=== PATIENT | female | born 1985 | race Caucasian/White ===

== ENCOUNTER 2024-04-22 18:10 | Emergency (ER) | payer OTHER, SELFPAY ==
--- NOTE | ~2024-04-22 | CT_ITS ---
EXAMINATION: CT abdomen pelvis w con DATE: 04/22/2024 20:56 INDICATION: Abdominal pain. TECHNIQUE: Computed tomography (CT) of the abdomen and pelvis was performed with 100 mL Omnipaque 350 intravenous contrast. Automated exposure control and iterative reconstruction technique were employe d. The dose-length product was 810.90 mGy-cm. COMPARISON: CT abdomen and pelvis 07/28/2018 FINDINGS: The visualized portions of the lung bases demonstrate mild atelectasis. No pleural effusion . The heart size is normal. No pericardial effusion. The liver and spleen are normal. The gallbladder is distended. The pancreas, adrenal glands, and kidneys are normal. Stool distends the rectum. There is liquid stool in the more proximal colon with distention of the ascending, transverse, and proxima l descending colon. The appendix is normal. There are no pathologically enlarged lymph nodes. There i s mild thoracic and lumbar spondylosis. IMPRESSION: 1. Distended colon, consistent with adynamic ileus. 2. Gallbladder distention, which may be secondary to fasting. Reviewed, dictated and finalized at location [facility]. [facility]
[2024-04-22 18:12] VITALS: BP 146/85; PULSE 95; RESP 16; TEMP 36.7; O2SAT 98
[2024-04-22 18:59] LABS: Basophils Absolute Auto 0.1 K/mm3 (0.0-0.1); Basophils Percent Auto 1.1 % (0.2-1.2); Eosinophils Absolute Auto 0.1 K/mm3 (0-0.3); Eosinophils Percent Auto 0.7 % (0-4.4); Hematocrit 36.1 % (37.0-47.0); Hemoglobin 11.2 g/dL (12.0-15.0); Immature Granulocyte Absolute 0.03 K/mm3 (0.00-0.031); Immature Granulocyte Percent A 0.4 % (0-0.5); Lymphocytes Absolute Auto 2.32 K/mm3 (0.9-3.2); Lymphocytes Percent Auto 27.5 % (18.3-44.2); Mean Corpuscular Hemoglobin 23.2 pg (26-34); Mean Corpuscular Volume 74.9 fl (80-100); Monocytes Absolute Auto 0.7 K/mm3 (0.1-0.6); Monocytes Percent Auto 8.4 % (2.6-8.5); Neutrophils Absolute Auto 5.2 K/mm3 (1.3-6.7); Neutrophils Percent Auto 61.9 % (45.5-73.1); Platelet Count Result 328 k/mm3 (150-375); Red Blood Count 4.82 M/mm3 (4.2-5.4); Red Cell Distribution Width 15.7 % (11.5-14.5); White Blood Count 8.5 K/mm3 (4.5-10.0)
[2024-04-22 19:09] LABS: Alanine Aminotransferase 10 U/L (6-35); Albumin Level 4.5 g/dL (3.5-5.1); Alkaline Phosphatase 70 U/L (38-126); Anion Gap 3 mmol/L (4-12); Aspartate Amino Transferase 20 U/L (14-36); Bilirubin,Total 0.4 mg/dL (0.2-1.3); Blood Urea Nitrogen 6 mg/dL (7-17); Calcium 9.2 mg/dL (8.4-10.2); Carbon Dioxide 28 mmol/L (22-30); Chloride 107 mmol/L (98-107); Estimated CRCL calculation 91 ml/min; Estimated Glomerular Filt Rate > 60; Glucose 95 mg/dL (65-110); Lipase 92 U/L (23-300); Potassium 4.1 mmol/L (3.4-5.0); Sodium 138 mmol/L (137-145)
[2024-04-22 19:27] LABS: Platelet Estimate Adequate (Adequate)
[2024-04-22 19:28] LABS: Anisocytosis 2+; Microcytosis 1+ (NORMAL); Schistocytes None Seen
[2024-04-22] MEDS: MORPHINE SULFATE (*CRX) 4 MG/ML INJ IV PUSH ×2 (19:53→22:29)
--- NOTE | 2024-04-22 19:53 | ED_ITS ---
HPI - General Adult General Chief complaint: Abdominal Pain Stated complaint: abd pain, rectal pain constipation Time Seen by Provider: 04/22/24 19:04 History of Present Illness HPI narrative: Patient 39-year-old female who presents emergency department with chief complaint of abdominal pain. Patient reports that the last several days she has not been able have a bowel movement reports he took some MiraLax without success reports that she continues to have discomfort patient reports no vomiting the patient reports no prior surgical history on her abdomen. Related Data Allergies Allergy/AdvReac Type Severity Reaction Status Date / Time Cat Dander Allergy Mild Anaphylaxis Uncoded 04/22/24 18:46 Review of Systems 2 Review of Systems: A 10 system review of systems was completed on the patient and is negative except for what is stated in the HPI. Nursing and ancillary documentation was reviewed. [facility] Family History Family History Father Hypertension Family history of diabetes mellitus in first degree relative Social History Social History Smoking status: Former smoker Smoking end date: 04/29/07 Alcohol intake: current Exam 2 Narrative: GENERAL: Well-appearing, well-nourished, and in no acute distress. HEAD: Normocephalic, atraumatic. EYES: PERRLA and EOMI. ENT: Nares clear, no rhinorrhea or epistaxis. Mucous membranes moist. NECK: Supple. CHEST: Clear to auscultation. No respiratory distress. HEART: Regular rate and rhythm. No murmur heard. Normal peripheral pulses. ABDOMEN: Soft, diffuse mild tenderness, nondistended, normal active bowel sounds. : Rectal exam was guaiac negative and there was a large amount of soft stool in the rectal vault EXTREMITIES: Normal range of motion. No edema. SKIN: Warm, dry, no rash. NEURO: No focal deficits. Alert and oriented x3. PSYCH: Normal mood and affect. Course Vital Signs Vital signs: Vital Signs Temperature 36.7 C 04/22/24 18:12 Pulse Rate 95 04/22/24 18:12 Respiratory Rate 16 04/22/24 18:12 Blood Pressure 146/85 H 04/22/24 18:12 Pulse Oximetry 98 04/22/24 18:12 Oxygen Delivery Room Air 04/22/24 18:12 Temperature 36.7 C 04/22/24 18:12 Pulse Rate 78 04/22/24 22:31 Respiratory Rate 19 04/22/24 22:31 Blood Pressure 132/102 H 04/22/24 22:31 Pulse Oximetry 100 04/22/24 22:31 Oxygen Delivery Room Air 04/22/24 18:12 Medical Decision Making MDM Narrative Medical decision making narrative: Differential diagnosis includes intra-abdominal infection, gastroenteritis, constipation, fecal impaction Laboratory studies were obtained on the patient which were within normal limits CT scan of the abdomen pelvis showed 1. Distended colon, consistent with adynamic ileus. 2. Gallbladder distention, which may be secondary to fasting Patient received IV fluids and received antiemetics Vital Signs Vital Signs: Vital Signs Temperature 36.7 C 04/22/24 18:12 Pulse Rate 95 04/22/24 18:12 Respiratory Rate 16 04/22/24 18:12 Blood Pressure 146/85 H 04/22/24 18:12 Pulse Oximetry 98 04/22/24 18:12 Oxygen Delivery Room Air 04/22/24 18:12 Temperature 36.7 C 04/22/24 18:12 Pulse Rate 78 04/22/24 22:31 Respiratory Rate 19 04/22/24 22:31 Blood Pressure 132/102 H 04/22/24 22:31 Pulse Oximetry 100 04/22/24 22:31 Oxygen Delivery Room Air 04/22/24 18:12 Lab Data 04/22/24 18:52 04/22/24 18:52 Labs: Lab Results 04/22/24 04/22/24 04/22/24 Range/Units 18:52 19:55 20:07 WBC 8.5 (4.5-10.0) K/mm3 RBC 4.82 (4.2-5.4) M/mm3 Hgb 11.2 L (12.0-15.0) g/dL Hct 36.1 L (37.0-47.0) % MCV 74.9 L (80-100) fl MCH 23.2 L (26-34) pg MCHC 31.0 L (32-36) g/dl RDW 15.7 H (11.5-14.5) % Plt Count 328 (150-375) k/mm3 MPV 11.0 H (7.4-10.4) fl Immature Gran % (Auto) 0.4 (0-0.5) % Neut % (Auto) 61.9 (45.5-73.1) % Lymph % (Auto) 27.5 (18.3-44.2) % Geary % (Auto) 8.4 (2.6-8.5) % Eos % (Auto) 0.7 (0-4.4) % Baso % (Auto) 1.1 (0.2-1.2) % Lymph # (Auto) 2.32 (0.9-3.2) K/mm3 Geary # (Auto) 0.7 H (0.1-0.6) K/mm3 Eos # (Auto) 0.1 (0-0.3) K/mm3 Baso # (Auto) 0.1 (0.0-0.1) K/mm3 Abs Immat Gran (auto) 0.03 (0.00-0.031) K/mm3 Absolute Neuts (auto) 5.2 (1.3-6.7) K/mm3 Absolute Nucleated RBC 0.000 (0.0-0.012) K/mm3 Nucleated RBC % 0.0 (0.0-0.2) % Platelet Estimate Adequate (Adequate) Anisocytosis 2+ Microcytosis 1+ (NORMAL) Schistocytes None seen Sodium 138 (137-145) mmol/L Potassium 4.1 (3.4-5.0) mmol/L Chloride 107 (98-107) mmol/L Carbon Dioxide 28 (22-30) mmol/L Anion Gap 3 L (4-12) mmol/L BUN 6 L (7-17) mg/dL Creatinine 0.80 (0.7-1.0) mg/dL Estim Creat Clear Calc 91 ml/min Estimated GFR > 60 (59 - ) Glucose 95 (65-110) mg/dL Calcium 9.2 (8.4-10.2) mg/dL Total Bilirubin 0.4 (0.2-1.3) mg/dL AST 20 (14-36) U/L ALT 10 (6-35) U/L Alkaline Phosphatase 70 (38-126) U/L Total Protein 8.0 (6.3-8.2) g/dL Albumin 4.5 (3.5-5.1) g/dL Lipase 92 (23-300) U/L Urine Color Yellow (Yellow) Urine Appearance Clear (Clear) Urine pH 5.5 (5.0-9.0) Ur Specific Mobile 1.005 (1.001-1.035) Urine Protein Negative (Negative) mg/dL Urine Glucose (UA) Negative (Negative) mg/dL Urine Ketones Negative (Negative) mg/dL Ur Blood (Man) Negative (Negative) Urine Nitrate Negative (Negative) Urine Bilirubin Negative (Negative) Urine Urobilinogen 0.2 (<2.0) mg/dL Leukocyte Esterase Rfl Negative (Negative) RUDOLPH/UL POC Urine HCG, Qual Negative (Negative) Discharge Plan Discharge Clinical Impression: Abdominal pain, Adynamic ileus Patient Disposition: Home, Self-Care Condition: Stable Instructions: Antibiotic Form, Abdominal Pain (ED), Ileus (ED) Patient Language: Lao Prescriptions: New dicyclomine 20 mg tablet 20 mg PO QID PRN (Reason: abdominal discomfort) Qty: 20 0RF ondansetron 4 mg tablet,disintegrating 4 mg PO Q8H PRN (Reason: nausea and vomiting) Qty: 10 0RF Follow-up/Referrals: Steve Davis MD [Primary Care Provider] - Time of Disposition: 00:43
[2024-04-22 20:09] LABS: BEDSIDEPREGUCG Negative (Negative)
[2024-04-22 20:20] LABS: Add Urine Microscopic? NO; Appearance Urine Clear (Clear); Bilirubin Urine Negative (Negative); Blood Urine Negative (Negative); Color Urine Yellow (Yellow); Glucose Urine UA Negative (Negative); Ketones Urine Negative (Negative); Leukocyte Esterase Ur Negative LEU/UL (Negative); Nitrate Urine Negative (Negative); Protein Urine Negative (Negative); Specific Grav Ur 1.005 (1.001-1.035); Urobilinogen Urine 0.2 mg/dL (<2.0); pH Urine 5.5 (5.0-9.0)
[2024-04-22 22:31] VITALS: BP 132/102; PULSE 78; RESP 19; O2SAT 100
[2024-04-22] MEDS: PROCHLORPERAZINE EDISYLATE 10 MG/2 ML VIAL IV PUSH (22:37)
[2024-04-23 00:30] VITALS: BP 136/89; PULSE 62; RESP 15; O2SAT 97
--- OUTSIDE RECORDS SUMMARY | 2024-04-29 22:42 | XMS_ITS | Encounter Summary ---
Author Organization [facility] Address [address] [place] [address] [place] [address] Care Team Providers Care Administrative Support Technician Name Role Phone Steve Davis MD Primary Care Provider Encounter Details Date Type Department Care Team (Latest Contact Info) Description 04/08/2015 Encounter Social History Tobacco Use Types Packs/Day Years Used Date Smoking Tobacco: Former Cigarettes Q uit: 04/29/2010 Smokeless Tobacco: Never Alcohol Use Standard Drinks/Week Comments No 0 (1 standard drink = 0.6 oz pur e alcohol) Sex and Gender Information Value Date Recorded Sex Assigned at Not on file Gender Identity Not on file Sexual Orientation Not on file documented as of this encounter Functional Status Functional Status Response Date of Assess ment Is person deaf or have serious hearing difficult y? No 03/30/2015 Is person blind or have serious difficulty seein g? No 03/30/2015 Does person have serious dif ficulty walking/climbing stairs? No 03/30/2015 Does person have difficulty dressing/bathing? No 03/30/2015 Does person have difficulty doing errands alone? No 03/30/2015 Cognitive Status Response Date of Assessm ent Does person have difficulty concentrating/remembering/making decisions? No 03/30/2015 documented as of this encounter Nursing Notes * Lorena Torres RN - 04/07/2015 12:14 PM CST This note was copied from the chart of Baby Girl 2 Oanh Ortiz. consult: Oanh has independently latched her on with a shield, and infant eagerly sucked, and maintained latch, pointed out swallows to mom. Instructed her to offer both breasts at each feeding and nursed for about 15 minutes. Instructed to call for assistance when here and she verbalized understanding. Lorena Torres RN, IBCLC [employer] documented in this encounter Plan of Treatment Not on file documented as of this encounter Visit Diagnoses Not on filedocumented in this encounter Care Teams Administrative Support Technician Relationship Specialty Start Date End Date Steve Davis MD [address] [employer] [employer] [address] [place] [address] PCP - General Family Medicine 03/30/15 documented as of this encounter
--- OUTSIDE RECORDS SUMMARY | 2024-04-29 22:42 | XMS_ITS | Patient Health Summary ---
Author Organization [facility] Address [facility] [place] [address] Care Team Providers Care Sql Report Writer Name Role Phone Steve aDvis MD Primary Care Provider [phone] [facility],non-owned Affiliates and Associated Physician Practices is amultiple site organization consisting of ambulatory clinics and hospital sitesin [place], [place], [place] and [place]. This disclosure is being madepursuant to the Care Everywhere program and may not contain all information available regarding this patient. Last updated 18.[facility] Allergies No known active allergies Medications * Be aware that medications may not be up to date on this document. Alwaysverify current medications with the patient. * Vit-Fe Fumarate-FA ( VITAMIN) 28-0.8 MG tablet Take 1 Tab by mouth once daily * acetaminophen (TYLENOL) 500 MG tablet Take 500 mg by mouth every 4 hours as needed for Fever or Pain Maximum allowable Acetaminophen amount = 4 Grams (4000 mg) / 24 hours. * ferrous sulfate 325 (65 FE) MG tablet(Started 03/09/2015) Take 1 Tab by mouth 2 times daily with morning and evening meal 2 refills left * bmihjzwxoo-wigmufwoxxqpc-akcmntum (FIORICET) 50-325-40 MG tablet(Started 03/29/2015) Take 1 Tab by mouth every 4 hours as needed for Headache or Migraine * oxyCODONE-acetaminophen (PERCOCET) 5-325 MG tablet(Started 04/03/2015) Take 1 Tab by mouth every 4 hours as needed * ibuprofen (MOTRIN) 600 MG tablet(Started 04/03/2015) Take 1 Tab by mouth every 6 hours as needed for Pain * docusate sodium (COLACE) 100 MG capsule(Started 04/03/2015) Take 1 Cap by mouth 2 times daily * lanolin (LANOLIN) ointment(Started 04/03/2015) Apply to affected area as needed (Sore or cracked nipples.) * ferrous sulfate 325 (65 FE) MG tablet(Started 04/03/2015) Take 1 Tab by mouth 2 times daily with morning and evening meal Active Problems Problem Noted Date Diagnosed Date Threatened labor 03/30/2015 Encounter for suspected PROM , with rupture of membranes not found 11/15/2014 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 History of LEEP (loop electr osurgical excision procedure) of cervix complicating 11/14/2014 Depression 11/14/2014 Obesity 11/14/2014 Supervision of high risk in [facility] 11/14/2014 History of ectopic 11/14/2014 Hyperemesis gravidarum with electrolyte imbalanc e Hypokalemia Maternal iron deficiency ane ryan affecting , antepartum Hypertension Status post section Immunizations * INFLUENZA(Given 12/28/2014) * TDAP (7yrs+)(Given 12/28/2014) Social History Tobacco Use Types Packs/Day Years Used Date Smoking Tobacco: Former Cigarettes Q uit: 04/29/2010 Smokeless Tobacco: Never Tobacco Cessation:Counseling Given: Yes Alcohol Use Standard Drinks/Week Comments No 0 (1 standard drink = 0.6 oz pur e alcohol) Sex and Gender Information Value Date Recorded Sex Assigned at Not on file Gender Identity Not on file Sexual Orientation Not on file Last Filed Vital Signs Vital Sign Reading Time Taken Comments Blood Pressure 112/70 05/05/2015 1:44 PM BALLROOM DANCE INSTRUCTOR Pulse 76 05/05/2015 1:44 PM BALLROOM DANCE INSTRUCTOR Temperature 36.7 ??C (98.1 ??F) 04/03/2015 8:00 AM CS T Respiratory Rate 16 05/05/2015 1:44 PM BALLROOM DANCE INSTRUCTOR Oxygen Saturation 96% 03/31/2015 3:07 AM BALLROOM DANCE INSTRUCTOR Inhaled Oxygen Concentration - - Weight 91.6 kg (202 lb) 05/05/2015 1:44 PM BALLROOM DANCE INSTRUCTOR Height 167.6 cm (5' 6 ) 05/05/2015 1:44 PM BALLROOM DANCE INSTRUCTOR Body Mass Index 32.6 05/05/2015 1:44 PM BALLROOM DANCE INSTRUCTOR Procedures * IMAGING/RADIOLOGY/XRAY RESULTS ORDER(Performed 04/12/2015) * LAB RESULTS ORDER(Performed 04/04/2015) * HGB HCT PANEL(Performed 03/31/2015) * PATHOLOGY TISSUE EXAM (STL)(Performed 03/30/2015) Performed for Diagnosis unknown * BLOOD GASES CORD KASEY (ISTAT)(Performed 03/30/2015) * BLOOD GASES CORD ART (ISTAT)(Performed 03/30/2015) * BLOOD GASES CORD KASEY (ISTAT)(Performed 03/30/2015) * BLOOD GASES CORD ART (ISTAT)(Performed 03/30/2015) * NEURAXIAL BLOCK(Performed 03/30/2015) * CBC W AUTO DIFFERENTIAL(Performed 03/30/2015) * NEURAXIAL BLOCK(Performed 03/30/2015) * TYPE + SCREEN PANEL(Performed 03/30/2015) Performed for Dichorionic diamniotic twin (HCC) * CBC W AUTO DIFFERENTIAL(Performed 03/30/2015) Performed for Dichorionic diamniotic twin (HCC) * URINALYSIS REFLEX MICROSCOPIC REFLEX CULTURE(Performed 03/30/2015) Performed for Threatened labor, third trimester (HCC) * PROTEIN CREATININE RATIO URINE RANDOM PNL(Performed 03/29/2015) Performed for Secondary hypertension, unspecified * LDH BLOOD(Performed 03/29/2015) Performed for Secondary hypertension, unspecified * URIC ACID BLOOD(Performed 03/29/2015) Performed for Secondary hypertension, unspecified * COMPREHENSIVE METABOLIC PANEL(Performed 03/29/2015) Performed for Secondary hypertension, unspecified * CBC W AUTO DIFFERENTIAL(Performed 03/29/2015) Performed for Secondary hypertension, unspecified * URINALYSIS REFLEX MICROSCOPIC REFLEX CULTURE(Performed 03/29/2015) Performed for Secondary hypertension, unspecified * CULTURE URINE(Performed 03/29/2015) Performed for Secondary hypertension, unspecified * URIC ACID BLOOD(Performed 03/22/2015) * COMPREHENSIVE METABOLIC PANEL(Performed 03/22/2015) * CBC W AUTO DIFFERENTIAL(Performed 03/22/2015) * CULTURE STREP B(Performed 03/22/2015) * URINALYSIS - POINT OF CARE (AMB) SLU(Performed 03/22/2015) * URINALYSIS - POINT OF CARE (AMB) SLU(Performed 03/16/2015) * POTASSIUM BLOOD(Performed 03/15/2015) * IMAGING/RADIOLOGY/XRAY RESULTS ORDER(Performed 03/14/2015) * LAB RESULTS ORDER(Performed 03/11/2015) * IMAGING/RADIOLOGY/XRAY RESULTS ORDER(Performed 03/11/2015) * URINALYSIS - POINT OF CARE (AMB) SLU(Performed 03/10/2015) * PROTEIN CREATININE RATIO URINE TIMED PNL(Performed 03/09/2015) Performed for Supervision of high risk in second trimester * PROTEIN URINE TIMED QUANTITATIVE(Performed 03/09/2015) Performed for Supervision of high risk in second trimester * CREATININE CLEARANCE URINE TIMED + BLOOD(Performed 03/09/2015) Performed for Supervision of high risk in second trimester * PHOSPHORUS BLOOD(Performed 03/09/2015) * MAGNESIUM BLOOD(Performed 03/09/2015) * BASIC METABOLIC PANEL (CALCIUM TOTAL)(Performed 03/09/2015) * BASIC METABOLIC PANEL (CALCIUM TOTAL)(Performed 03/09/2015) * BLOOD TYPE VERIFICATION(Performed 03/08/2015) * TYPE + SCREEN PANEL(Performed 03/08/2015) * CBC W AUTO DIFFERENTIAL(Performed 03/08/2015) Performed for Supervision of high risk in second trimester * EKG 12-LEAD(Performed 03/08/2015) Performed for Hypokalemia * PROTEIN CREATININE RATIO URINE RANDOM PNL(Performed 03/08/2015) * URIC ACID BLOOD(Performed 03/08/2015) Performed for Supervision of high risk in second trimester * LDH BLOOD(Performed 03/08/2015) Performed for Supervision of high risk in second trimester * COMPREHENSIVE METABOLIC PANEL(Performed 03/08/2015) Performed for Dichorionic diamniotic twin * URINALYSIS REFLEX MICROSCOPIC REFLEX CULTURE(Performed 03/08/2015) Performed for Dichorionic diamniotic twin * CULTURE URINE(Performed 03/08/2015) Performed for Dichorionic diamniotic twin * MAGNESIUM BLOOD(Performed 03/07/2015) Performed for Dichorionic diamniotic twin (HCC) * PHOSPHORUS BLOOD(Performed 03/07/2015) Performed for Dichorionic diamniotic twin (HCC) * COMPREHENSIVE METABOLIC PANEL(Performed 03/07/2015) Performed for Proximal weakness of limb * CBC W AUTO DIFFERENTIAL(Performed 03/07/2015) Performed for Proximal weakness of limb * URINALYSIS REFLEX MICROSCOPIC REFLEX CULTURE(Performed 03/07/2015) Performed for Supervision of high risk in third trimester (HCC) * CULTURE URINE(Performed 03/07/2015) Performed for Supervision of high risk in third trimester (HCC) * GLUCOSE PROTEIN KETONE URINE - POINT OF CAR(Performed 03/07/2015) * URINALYSIS REFLEX MICROSCOPIC REFLEX CULTURE(Performed 03/04/2015) Performed for Dichorionic diamniotic twin (HCC) * GLUCOSE - POINT OF CARE (AMB) SLU(Performed 03/01/2015) * URINALYSIS - POINT OF CARE (AMB) SLU(Performed 03/01/2015) * GLUCOSE - POINT OF CARE (AMB) SLU(Performed 03/01/2015) * URINALYSIS REFLEX MICROSCOPIC REFLEX CULTURE(Performed 02/25/2015) Performed for Dichorionic diamniotic twin (HCC) * CULTURE URINE(Performed 02/25/2015) Performed for Dichorionic diamniotic twin (HCC) * COMPREHENSIVE METABOLIC PANEL(Performed 02/22/2015) * T4 FREE(Performed 02/22/2015) * TSH(Performed 02/22/2015) * ECHOCARDIOGRAM 2D WITH DOPPLER(Performed 02/16/2015) Performed for Heart murmur * PROC ECHOCARDIOGRAM COMP W BUBBLE STUDY(Performed 02/15/2015) * URINALYSIS - POINT OF CARE (AMB) SLU(Performed 02/15/2015) * GLUCOSE CHALLENGE(Performed 02/02/2015) * CBC W AUTO DIFFERENTIAL(Performed 02/02/2015) * CULTURE URINE(Performed 02/02/2015) * URINALYSIS - POINT OF CARE (AMB) SLU(Performed 02/02/2015) * URINALYSIS - POINT OF CARE (AMB) SLU(Performed 01/04/2015) * GLUCOSE CHALLENGE(Performed 12/07/2014) * URINALYSIS - POINT OF CARE (AMB) SLU(Performed 12/07/2014) * IMAGING/RADIOLOGY/XRAY RESULTS ORDER(Performed 12/01/2014) * URINALYSIS REFLEX MICROSCOPIC REFLEX CULTURE(Performed 11/14/2014) Performed for (HCC) * PROFILE I W/ HBSAG(Performed 04/29/1998) * PROFILE I W/ HBSAG(Performed 04/29/1998) * HIV-1 HIV-2 ANTIBODIES W RFLX REFLEXED(Performed 04/29/1998) * SECTION (EMERGENCY) Results * IMAGING/RADIOLOGY/XRAY RESULTS ORDER (04/12/2015 4:14 PM BALLROOM DANCE INSTRUCTOR) Only the most recent of4 resultswithin the time period is included. Anatomical Region Laterality Modality Other Narrative 04/12/2015 4:14 PM BALLROOM DANCE INSTRUCTOR Ordered by an unspecified provider. Scanned Document IMAGING * LAB RESULTS ORDER (04/04/2015 9:56 AM BALLROOM DANCE INSTRUCTOR) Only the most recent of2 resultswithin the time period is included. Narrative 04/04/2015 9:56 AM BALLROOM DANCE INSTRUCTOR Ordered by an unspecified provider. Scanned Document LAB - THERAPEUTIC DR LARA MONITORING ORDERABLES * (ABNORMAL) HGB HCT PANEL (03/31/2015 5:19 AM BALLROOM DANCE INSTRUCTOR) Hemoglobin 7.7(L) 12.0 - 15.6 gm/dL 03/31/2015 6:03 AM BALLROOM DANCE INSTRUCTOR [facility] Hematocrit 23.4(L) 35.9 - 45.5 % 03/31/2015 6:03 AM BALLROOM DANCE INSTRUCTOR [facility] Blood BLOOD SPECIMEN / Unknown Lab Venipuncture / Unknown 03/31/2015 5:19 AM BALLROOM DANCE INSTRUCTOR 03/31/2015 5:49 AM B[employer]ROOM DANCE INSTRUCTOR Primo Melendez MD LAB - HEMATOLOGY ORD ERABLES Performing Organization Address City/State/[facility] Co de Phone Number [facility] [address] [place], [place] [id number] * GROSS + MICRO EXAM (STL) (03/30/2015 9:52 PM BALLROOM DANCE INSTRUCTOR) Case Report Surgical Pathology Report ? Case: [id number] ? Authorizing Provider: ??Elena Wei MD ?Collected: ? 03/30/2015 09:52 PM ? Ordering Location: ? [facility] LDR ? Received: ?03/31/2015 07:54 AM ? Pathologist: ? Arlen Newell MD ? Specimen: ?Placenta 3rd Trimester ? 04/04/2015 3:23 PM [facility] Final Diagnosis 1. Twin placenta: -- Dichorionic, diamniotic twin placenta 2. Placenta A with one cord clamp: -- Third trimester placenta, 640 grams -- Three-vessel umbilical cord with no pathologic diagnosis -- Chorioamniotic membranes with no pathologic diagnosis 3. Placenta B with two cord clamps: -- Three-vessel umbilical cord with no pathologic diagnosis -- Acute chorioamnionitis, mild MM/kaylee 04/04/2015 3:23 PM [facility] Clinical History Preeclampsia without severe features, twin gestation. 04/04/2015 3:23 PM [facility] Gross Description Received in formalin in a container labeled Oanh Ortiz, sebastian . The container holds a partially fused twin placenta with attached membranes and umbilical cord. Upon removal from the container the placental discs separate with ease. The placental disc with a single santana cord clamp is placenta A, the placental disc with two santana cord clamps is placenta B. Placenta A measures 19.5 x 17 x 3.5 cm and has a total weight of 640 grams. The membranes rupture marginally and are santana, semitransparent. The umbilical cord A inserts eccentrically 4.8 cm from the placental disc margin and has a santana cord clamp attached. The umbilical cord measures 20 cm in length and up to 2 cm in diameter and contains three vessels. ??The surface of placenta A is purple-santana. The membranes rupture marginally and are santana, semitransparent. ??The surface has well developed intact lobular cotyledons. Serial section shows red-brown parenchyma. ??There are no lesions or masses grossly identified. Placental disc B measures 19.5 x 15 x 3.8 cm and has a weight of 550 grams. ??The membranes of placenta B rupture marginally and are santana, semitransparent. ??Umbilical cord B has two cord clamps attached and inserts eccentrically 3 cm from the placental disc margin. ??Umbilical cord B measures 18 cm in length and up to 1.6 cm in diameter. ??Umbilical cord B contains three vessels. ??The surface is purple-santana. ??The vessels of placenta B arborize in a normal pattern and are unremarkable. The maternal surface has well developed intact lobular cotyledons. Serial sections show red-brown parenchyma. There are no lesions or masses grossly identified. Poll Watcher sections are submitted as follows: A1 - Membranes and umbilical cord placenta A A2 - surface placenta A A3 - Maternal surface placenta A A4 - Membranes and umbilical cord placenta B A5 - and maternal surface placenta B A6 - Maternal surface placenta B DYT/kunal 04/04/2015 3:23 PM BALLROOM DANCE INSTRUCTOR [facility] Microscopic Description Sections of the placenta reveal a dichorionic, diamniotic twin placenta. Both placentas have three-vessel umbilical cords with no evidence of funisitis or thrombosis. The chorioamniotic membranes on placenta A show no evidence of acute inflammation, however, placenta B has mild, acute inflammation. The chorionic villi are small, well-vascularized and mature with no evidence of villitis or infarction. MM/kaylee 04/04/2015 3:23 PM BALLROOM DANCE INSTRUCTOR [facility] Pathology/Cytolo gy ENTIRE PLACENTA / Unknown 03/30/2015 9:52 PM BALLROOM DANCE INSTRUCTOR 03/31/2015 7:54 AM BALLROOM DANCE INSTRUCTOR Elena Wei MD LAB - PATHOLOGY/CYTO LOGY ORDERABLES [facility] [address] [place] [address] * (ABNORMAL) BLOOD GASES CORD KASEY (ISTAT) (03/30/2015 9:51 PM BALLROOM DANCE INSTRUCTOR) Only the most recent of2 resultswithin the time period is included. pH Cord Venous POCT 7.30 7.28 - 7.40 pH 03/31/2015 5:57 AM BALLROOM DANCE INSTRUCTOR [facility] pCO2 Cord Venous POCT 48(H) 35 - 45 mmHg 03/31/2015 5:57 AM [facility] pO2 Cord Venous POCT 26 22 - 33 mmHg 03/31/2015 5:57 AM [facility] HCO3 Cord Arterial POCT 24 22 - 24 mmol/L 03/31/2015 5:57 AM [facility] BE Cord Venous POCT Calc -3 -6 - 2 mmol/L 03/31/2015 5:57 AM [facility] TCO2 Cord Venous POCT 25 22 - 30 mmol/L 03/31/2015 5:57 AM [facility] O2 Saturation % Cord Venous Calc POCT 40 % 03/31/2015 5:57 AM [facility] Site CORD KASEY 03/31/2015 5:57 AM [facility] Sample iSTAT CORD V 03/31/2015 5:57 AM [facility] Blood CORD BLOOD SPECIMEN / Unknown 03/30/2015 9:51 PM BALLROOM DANCE INSTRUCTOR 03/31/2015 5:52 AM BALLROOM DANCE INSTRUCTOR Narrative [facility] - 03/31/2015 5:57 AM BALLROOM DANCE INSTRUCTOR Twin A Jose Antonio Perez MD LAB - POINT OF CARE ORDERABLES Performing Organization Address City/State/[facility] Co de Phone Number [facility] [address] [place] [address] * (ABNORMAL) BLOOD GASES CORD ART (ISTAT) (03/30/2015 9:47 PM BALLROOM DANCE INSTRUCTOR) Only the most recent of2 resultswithin the time period is included. pH Cord Arterial POCT 7.22 7.20 - 7.34 pH 03/31/2015 5:58 AM [facility] pCO2 Cord Arterial POCT 59.6(H) 45 - 55 mmHg 03/31/2015 5:58 AM [facility] pO2 Cord Arterial POCT 21 12 - 25 mmHg 03/31/2015 5:58 AM [facility] HCO3 Cord Arterial POCT 24.1 15 - 29 mmol/L 03/31/2015 5:58 AM [facility] BE Cord Arterial POCT -5(L) -2.9 - 8.3 mmol/L 03/31/2015 5:58 AM [facility] TCO2 Cord Arterial POCT 26 mmol/L 03/31/2015 5:58 AM [facility] O2 Saturation Cord Art % Calc POCT 25 % 03/31/2015 5:58 AM BALLROOM DANCE INSTRUCTOR [facility] Site CORD ART 03/31/2015 5:58 AM [facility] Sample iSTAT CORD A 03/31/2015 5:58 AM [facility] Blood CORD BLOOD SPECIMEN / Unknown 03/30/2015 9:47 PM BALLROOM DANCE INSTRUCTOR 03/31/2015 5:51 AM BALLROOM DANCE INSTRUCTOR Narrative [facility] - 03/31/2015 5:58 AM B[employer]ROOM DANCE INSTRUCTOR Twin A Jose Antonio Perez MD LAB - POINT OF CARE ORDERABLES Performing Organization Address City/State/[facility] Co de Phone Number [facility] [address] [place] [address] * NEURAXIAL BLOCK (03/30/2015 9:04 PM BALLROOM DANCE INSTRUCTOR) Narrative Latonya Arteaga APRN-SLEEVE SETTER LOCKSTITCH - 03/30/2015 9:04 PM BALLROOM DANCE INSTRUCTOR Latonya Arteaga APRN-SLEEVE SETTER LOCKSTITCH ? 03/30/2015 ??9:04 PM NEURAXIAL BLOCK Patient Location: ??OB Pre Procedure Indication: ??labor analgesia Anticoagulation /Antithrombosis Status Confirmed: Yes Preanesthetic Checklist: ??patient identified, IV checked, site marked, risks and benefits discussed, surgical consent verified, monitors and equipment checked, pre-op evaluation done, timeout performed, informed consent obtained and questions answered / anesthesia plan accepted Monitors: ??BP and Pulse Ox Patient Condition: ??awake Patient Position: ??sitting Procedure Block Performed: ??epidural Prep: ??Betadine Sterile Field: ??mask, cap/hat, sterile field established and sterile gloves Approach: ??midline Skin Numbed with: ??lidocaine 1% Epidural Needle Type: ??Tuohy Needle Gauge: 18 Needle Length: ??3.5 in Placement Site: ??L3-L4 Number of Attempts: ??1 Loss of ResistanceTechnique: ??air Loss of Resistance: ??8 cm Catheter Length at Skin: ??15 cm CSF Aspirated from Catheter: ??negative Test Dose: ??lidocaine 1.5% with 1 200 k epinephrine 3 ml ??at 03/30/2015 8:21 PM Local Anesthetic: ??lidocaine 2% 5 ml Epidural additive: ??fentanyl ? Events CSF return negative injection not painful no paresthesia Degree of Difficulty: ??none Position Post Procedure: ??left uterine displacement Vital signs monitored and stable throughout. ??See Anesthesia Intraop record for details. Block Start Time: ??03/30/2015 8:21 PM Block End Time: ??03/30/2015 8:21 PM Block Performed by: ??P ??Chandler PARDO Notes: ??Called to patients room. Epidural placed without complications. Negative heme, Neg, CSF + ALYSSA x 1 attempt. ??Pt getting comfortable Jose Antonio Perez MD GENERAL ANESTHESIA O RDERABLES * (ABNORMAL) CBC W AUTO DIFFERENTIAL (03/30/2015 8:01 PM BALLROOM DANCE INSTRUCTOR) Only the most recent of7 resultswithin the time period is included. WBC 12.4(H) 4.4 - 10.7 x10^9/L 03/30/2015 8:10 PM [facility] WBC Corrected x10^9/L 03/30/2015 8:10 PM [facility] RBC 3.99 3.80 - 5.20 x10^12/L 03/30/2015 8:10 PM [facility] Hemoglobin 10.6(L) 12.0 - 15.6 gm/dL 03/30/2015 8:10 PM [facility] Hematocrit 32.1(L) 35.9 - 45.5 % 03/30/2015 8:10 PM [facility] MCV 80.5(L) 80.7 - 98.3 fl 03/30/2015 8:10 PM [facility] MCH 26.6(L) 26.7 - 34.0 pg 03/30/2015 8:10 PM [facility] MCHC 33.0 30.8 - 35.9 gm/dL 03/30/2015 8:10 PM [facility] Platelet Count 173 153 - 416 x10^9/L 03/30/2015 8:10 PM [facility] RDW-CV 18.0(H) 12.1 - 14.9 % 03/30/2015 8:10 PM [facility] MPV 11.3 9.4 - 12.9 fl 03/30/2015 8:10 PM [facility] Neutrophils % 78.7(H) 44.0 - 73.0 % 03/30/2015 8:10 PM [facility] Lymphocytes % 13.9(L) 20.0 - 43.0 % 03/30/2015 8:10 PM [facility] Monocytes % 6.9 5.0 - 13.0 % 03/30/2015 8:10 PM [facility] Eosinophils % 0.1 0.0 - 6.0 % 03/30/2015 8:10 PM [facility] Basophils % 0.1 0.0 - 2.0 % 03/30/2015 8:10 PM [facility] Immature Granulocytes 0.3 0 - 1 % 03/30/2015 8:10 PM [facility] Neutrophil Absolute 9.74(H) 2.01 - 7.14 x10^9/L 03/30/2015 8:10 PM [facility] Lymphocytes Absolute 1.72 1.07 - 3.94 x10^9/L 03/30/2015 8:10 PM [facility] Monocytes Absolute 0.86 0.26 - 1.07 x10^9/L 03/30/2015 8:10 PM [facility] Eosinophils Absolute 0.01 0 - 0.47 x10^9/L 03/30/2015 8:10 PM [facility] Basophils Absolute 0.01 0 - 0.08 x10^9/L 03/30/2015 8:10 PM [facility] Immature Granulocytes Absolute 0.04 0.00 - 0.06 x10^9/L 03/30/2015 8:10 PM [facility] Blood BLOOD SPECIMEN / Unknown Venipuncture / Unknown 03/30/2015 8:01 PM BALLROOM DANCE INSTRUCTOR 03/30/2015 8:05 PM BALLROOM DANCE INSTRUCTOR Jose Antonio Perez MD LAB - HEMATOLOGY ORD ERABLES [facility] [address] [place] [address] * NEURAXIAL BLOCK (03/30/2015 5:39 AM BALLROOM DANCE INSTRUCTOR) Narrative Christine Park, [employer] - 03/30/2015 5:39 AM BALLROOM DANCE INSTRUCTOR Christine Park, ZARINA ? 03/30/2015 ??5:39 AM NEURAXIAL BLOCK Patient Location: ??OB Pre Procedure Indication: ??labor analgesia Anticoagulation /Antithrombosis Status Confirmed: Yes Preanesthetic Checklist: ??patient identified, IV checked, site marked, risks and benefits discussed, surgical consent verified, monitors and equipment checked, pre-op evaluation done, timeout performed, informed consent obtained and questions answered / anesthesia plan accepted Monitors: ??BP and Pulse Ox Patient Condition: ??awake Patient Position: ??sitting Procedure Block Performed: ??epidural Prep: ??Betadine Sterile Field: ??mask, cap/hat, sterile field established and sterile gloves Approach: ??midline Skin Numbed with: ??lidocaine 1% Epidural Needle Type: ??Tuohy Needle Gauge: 18 Needle Length: ??3.5 in Placement Site: ??L3-L4 Number of Attempts: ??1 Loss of ResistanceTechnique: ??air Loss of Resistance: ??7 cm Catheter Threaded to: ??5 cm Catheter Length at Skin: ??12 cm CSF Aspirated from Catheter: ??negative Blood Aspirated from Catheter: ??negative Test Dose: ??lidocaine 1.5% with 1 200 k epinephrine ??at 03/30/2015 5:29 AM Test Dose Response: ??negative Local Anesthetic: ??ropivacaine 0.2% Events CSF return negative injection not painful no paresthesia Degree of Difficulty: ??none Position Post Procedure: ??left uterine displacement Vital signs monitored and stable throughout. ??See Anesthesia Intraop record for details. Block Start Time: ??03/30/2015 5:25 AM Block End Time: ??03/30/2015 5:29 AM Block Performed by: ??cmeyer Jose Antonio Perez MD GENERAL ANESTHESIA O RDERABLES * TYPE + SCREEN PANEL (03/30/2015 4:22 AM [facility]) Only the most recent of2 resultswithin the time period is included. ABO A 03/30/2015 5:04 AM [facility] Rh Type Positive 03/30/2015 5:04 AM [facility] Comment:History check perfor med. No retype required. Antibody Screen Negative 03/30/2015 5:04 AM [facility] Miscellaneous samples (specimen) BLOOD SPECIMEN / Unknown 03/30/2015 4:22 AM BALLROOM DANCE INSTRUCTOR 03/30/2015 4:29 AM BALLROOM DANCE INSTRUCTOR Анна Anand MD LAB - BLOOD BANK ORD ERABLES [facility] [address] * (ABNORMAL) URINALYSIS ROUTINE W/REFLEX TO CULTURE (03/30/2015 3:24 AM BALLROOM DANCE INSTRUCTOR) Only the most recent of7 resultswithin the time period is included. Color UA Yellow Straw, Yellow, Dark Yellow 03/30/2015 3:54 AM [facility] Clarity UA Clear 03/30/2015 3:54 AM [facility] Specific [place] UA 1.007 1.005 - 1.030 03/30/2015 3:54 AM [facility] pH UA 7.5 5.0 - 8.0 pH 03/30/2015 3:54 AM [facility] Protein UA Negative Negative 03/30/2015 3:54 AM [facility] Blood UA 2+(A) Negative 03/30/2015 3:54 AM [facility] Leukocyte UA Negative Negative 03/30/2015 3:54 AM [facility] Nitrite UA Negative Negative 03/30/2015 3:54 AM [facility] Glucose UA Negative Negative 03/30/2015 3:54 AM [facility] Ketone UA Negative Negative 03/30/2015 3:54 AM [facility] Bilirubin UA Negative Negative 03/30/2015 3:54 AM [facility] Urobilinogen UA 0.2 0.1 - 1.0 EU/dL 03/30/2015 3:54 AM [facility] WBC UA Auto 0-2 0-2, 2-5 # /hpf 03/30/2015 3:54 AM [facility] RBC UA Auto 0-2 0-2, 2-5 # /hpf 03/30/2015 3:54 AM [facility] Epithelial Cell UA Auto 0-2 0-2, 2-5 # /hpf 03/30/2015 3:54 AM BALLROOM DANCE INSTRUCTOR [facility] Reflex Status Culture not indicated 03/30/2015 3:54 AM BALLROOM DANCE INSTRUCTOR [facility] Urine URINE SPECIMEN OBTAINED BY CLEAN CATCH PROCEDURE / Unknown 03/30/2015 3:24 AM BALLROOM DANCE INSTRUCTOR 03/30/2015 3:38 AM BALLROOM DANCE INSTRUCTOR Анна Anand MD LAB - URINALYSIS ORD ERABLES Performing Organization Address [facility] Co de Phone Number [facility] [address] [place] [address] * PROTEIN CREATININE RATIO URINE RANDOM PNL (03/29/2015 9:52 AM BALLROOM DANCE INSTRUCTOR) Only the most recent of2 resultswithin the time period is included. Protein Urine 26.8 mg/dL 03/29/2015 9:52 AM [facility] Creatinine Urine 92 mg/dL 03/29/2015 9:52 AM [facility] Protein/Creatin ine Ratio Urine 0.29 03/29/2015 9:52 AM [facility] Urine URINE SPECIMEN OBTAINED BY CLEAN CATCH PROCEDURE / Unknown Collection / Unknown 03/29/2015 9:52 AM BALLROOM DANCE INSTRUCTOR 03/29/2015 9:23 AM BALLROOM DANCE INSTRUCTOR Lorena Redd APRN-DIABETES EDUCATION COORDINATOR LAB - URINE C HEMISTRY ORDERABLES Performing Organization Address [facility] de Phone Number [facility] [address] [place] [address] * URIC ACID BLOOD (03/29/2015 9:24 AM BALLROOM DANCE INSTRUCTOR) Only the most recent of3 resultswithin the time period is included. Uric Acid 3.6 3.0 - 8.5 mg/dL 03/29/2015 9:53 AM BALLROOM DANCE INSTRUCTOR [facility] Blood BLOOD SPECIMEN / Unknown Venipuncture / Unknown 03/29/2015 9:24 AM BALLROOM DANCE INSTRUCTOR 03/29/2015 9:23 AM BALLROOM DANCE INSTRUCTOR Lorena Redd PUNCH OUT CREW MEMBER-DIABETES EDUCATION COORDINATOR LAB - HOME HEALTH CNA RY ORDERABLES Performing Organization Address [facility] Co de Phone Number [facility] [address] [place] [address] * (ABNORMAL) COMPREHENSIVE METABOLIC PANEL (03/29/2015 9:24 AM [facility]) Only the most recent of5 resultswithin the time period is included. Glucose 87 74 - 106 mg/dL 03/29/2015 9:53 AM [facility] Sodium 140 136 - 145 mmol/L 03/29/2015 9:53 AM [facility] Potassium 3.2(L) 3.5 - 5.1 mmol/L 03/29/2015 9:53 AM [facility] Chloride 109(H) 98 - 107 mmol/L 03/29/2015 9:53 AM [facility] CO2 20(L) 22 - 31 mmol/L 03/29/2015 9:53 AM [facility] Calcium 8.1(L) 8.5 - 10.1 mg/dL 03/29/2015 9:53 AM [facility] Anion Gap 11 5 - 20 mmol/L 03/29/2015 9:53 AM [facility] BUN 2(L) 7 - 21 mg/dL 03/29/2015 9:53 AM [facility] Creatinine 0.43(L) 0.50 - 1.30 mg/dL 03/29/2015 9:53 AM [facility] Alkaline Phosphatase 132(H) 38 - 126 U/L 03/29/2015 9:53 AM [facility] ALT 14 12 - 78 U/L 03/29/2015 9:53 AM [facility] AST 13 5 - 40 U/L 03/29/2015 9:53 AM [facility] Protein Total 5.6(L) 6.4 - 8.2 gm/dL 03/29/2015 9:53 AM [facility] Albumin 2.2(L) 3.4 - 5.0 gm/dL 03/29/2015 9:53 AM [facility] Bilirubin Total 0.3 0.2 - 1.0 mg/dL 03/29/2015 9:53 AM [facility] eGFR by MDRD >60 >60 mL/min/1.7 3m2 03/29/2015 9:53 AM [facility] eGFR by MDRD >60 >60 mL/min/1.7 3m2 03/29/2015 9:53 AM [facility] Blood BLOOD SPECIMEN / Unknown Venipuncture / Unknown 03/29/2015 9:24 AM BALLROOM DANCE INSTRUCTOR 03/29/2015 9:23 AM BALLROOM DANCE INSTRUCTOR Lorena Redd PUNCH OUT CREW MEMBER-DIABETES EDUCATION COORDINATOR LAB - HOME HEALTH CNA RY ORDERABLES Performing Organization Address [facility] de Phone Number [facility] [address] [place] [phone] * LDH BLOOD (03/29/2015 9:24 AM BALLROOM DANCE INSTRUCTOR) Only the most recent of2 resultswithin the time period is included. LDH 192 100 - 200 U/L 03/29/2015 9:53 AM BALLROOM DANCE INSTRUCTOR [facility] Blood BLOOD SPECIMEN / Unknown Venipuncture / Unknown 03/29/2015 9:24 AM BALLROOM DANCE INSTRUCTOR 03/29/2015 9:23 AM BALLROOM DANCE INSTRUCTOR Lorena Redd PUNCH OUT CREW MEMBER-DIABETES EDUCATION COORDINATOR LAB - HOME HEALTH CNA RY ORDERABLES Performing Organization Address [facility] de Phone Number [facility] [address] [place] [phone] * CULTURE URINE (03/29/2015 9:10 AM BALLROOM DANCE INSTRUCTOR) Only the most recent of5 resultswithin the time period is included. Culture <10,000 CFU/mL normal urogenital augustine SATURNINO 03/31/2015 9:12 AM BALLROOM DANCE INSTRUCTOR [facility] MICRO[facility] Urine URINE SPECIMEN OBTAINED BY CLEAN CATCH PROCEDURE / Unknown Collection / Unknown 03/29/2015 9:10 AM BALLROOM DANCE INSTRUCTOR 03/29/2015 9:23 AM BALLROOM DANCE INSTRUCTOR Lorena Redd PUNCH OUT CREW MEMBER-DIABETES EDUCATION COORDINATOR LAB - MICROBI OLOGY ORDERABLES Performing Organization Address [facility] de Phone Number [facility] MICROBIOLOGY [address] [place] [address], [facility] [phone] * CULTURE STREP B (03/22/2015 2:37 PM BALLROOM DANCE INSTRUCTOR) Culture SEE NOTE [facility] ([facility]) Comment: ??STREPTOCOCCUS, GROUP B CULTURE ?MICRO NUMBER: ?[id number] ??TEST STATUS: ? FINAL ??SPECIMEN SOURCE: ?? NOT GIVEN ??SPECIMEN QUALITY: ??ADEQUATE ??RESULT: ?No group B Streptococcus isolated Test Performed at: [facility] ??[phone] [place] MD 03/22/2015 2:37 PM BALLROOM DANCE INSTRUCTOR 03/23/2015 3:10 AM BALLROOM DANCE INSTRUCTOR Narrative [facility] ([facility]) - 03/25/2015 11:00 AM BALLROOM DANCE INSTRUCTOR Preferred Lab:->[facility] Marciano Tamez MD LAB - MICROBIOLOGY O RDERABLES Performing Organization Address [facility] Co de Phone Number [facility]) * URINALYSIS - POINT OF CARE (AMB) [facility] (03/22/2015) Only the most recent of8 resultswithin the time period is included. Glucose UA n [facility] Bilirubin UA POCT n [facility] Ketones UA POCT n [facility] Specific [place] UA n [facility] Blood Urine POCT n [facility] pH UA n [facility] Protein UA n [facility] Urobilinogen UA n [facility] Nitrite UA n [facility] WBC UA n [facility] Urine specimen (specimen) 03/22/2015 Marciano Tamez MD LAB - POINT OF CARE ORDERABLES Performing Organization Address [facility] Co de Phone Number [facility] * (ABNORMAL) POTASSIUM BLOOD (03/15/2015 9:34 AM BALLROOM DANCE INSTRUCTOR) Potassium 3.3(L) 3.5 - 5.3 mmol/L [facility] ([facility]) Comment: Test Performed at: [facility] [address] [place], [place] ??[phone] ENMANUEL BRIONES DO,MPH Blood specimen (specimen) BLOOD SPECIMEN / Unknown 03/15/2015 9:34 AM BALLROOM DANCE INSTRUCTOR 03/15/2015 9:34 AM BALLROOM DANCE INSTRUCTOR Historical Provider LAB - CHEMISTRY O RDERABLES [facility] ([facility]) * PROTEIN CREATININE RATIO URINE TIMED PNL (03/09/2015 5:33 PM BALLROOM DANCE INSTRUCTOR) Volume 24 Hour Urine 1,900 mL 03/09/2015 6:07 PM BALLROOM DANCE INSTRUCTOR [facility] Collection Time Hours 24 hrs 03/09/2015 6:07 PM BALLROOM DANCE INSTRUCTOR [facility] Protein Urine 19.7 mg/dL 03/09/2015 6:07 PM BALLROOM DANCE INSTRUCTOR [facility] Creatinine Urine 85 mg/dL 03/09/2015 6:07 PM BALLROOM DANCE INSTRUCTOR [facility] Protein/Creatin ine Ratio Urine 0.23 03/09/2015 6:07 PM [facility] Urine TIMED URINE SPECIMEN / Unknown Collection / Unknown 03/09/2015 5:33 PM BALLROOM DANCE INSTRUCTOR 03/09/2015 5:52 PM BALLROOM DANCE INSTRUCTOR Oanh Julian MD LAB - URINE CHEMI STRY ORDERABLES Performing Organization Address [facility] Co de Phone Number [facility] [address] [place], [place] [phone] * (ABNORMAL) PROTEIN URINE TIMED QUANTITATIVE (03/09/2015 5:33 PM BALLROOM DANCE INSTRUCTOR) Volume 24 Hour Urine 1,900 mL 03/09/2015 6:07 PM BALLROOM DANCE INSTRUCTOR [facility] Collection Time Hours 24 hrs 03/09/2015 6:07 PM [facility] Protein 24 Hour Urine 374(H) 42 - 225 mg/24hr 03/09/2015 6:07 PM [facility] Protein Urine 19.7 mg/dL 03/09/2015 6:07 PM [facility] Urine TIMED URINE SPECIMEN / Unknown Collection / Unknown 03/09/2015 5:33 PM BALLROOM DANCE INSTRUCTOR 03/09/2015 5:52 PM BALLROOM DANCE INSTRUCTOR Oanh Julian MD LAB - URINE CHEMI STRY ORDERABLES Performing Organization Address [facility] Co de Phone Number [facility] [address] [place] [phone] * (ABNORMAL) CREATININE CLEARANCE URINE TIMED (03/09/2015 5:33 PM [facility]) Volume 24 Hour Urine 1,900 mL 03/09/2015 6:07 PM [facility] Collection Time Hours 24 hrs 03/09/2015 6:07 PM [facility] Height Inches 66 inches 03/09/2015 6:07 PM [facility] Weight in Pounds 234 pounds 03/09/2015 6:07 PM [facility] Surface Area 2.14 03/09/2015 6:07 PM [facility] Creatinine 0.41(L) 0.50 - 1.30 mg/dL 03/09/2015 6:07 PM [facility] Creatinine Urine 85 mg/dL 03/09/2015 6:07 PM [facility] Creatinine 24 Hour Urine 1,615 800 - 1,800 mg/24hr 03/09/2015 6:07 PM [facility] Creatinine Clearance 221(H) 87 - 107 mL/min/1.73 m2 03/09/2015 6:07 PM [facility] Urine TIMED URINE SPECIMEN / Unknown Collection / Unknown 03/09/2015 5:33 PM BALLROOM DANCE INSTRUCTOR 03/09/2015 5:52 PM [facility] Oanh Julian MD LAB - URINE CHEMI STRY ORDERABLES Performing Organization Address City/State/[facility] Co de Phone Number [facility] [address] [place] [address] * (ABNORMAL) BASIC METABOLIC PANEL (CALCIUM TOTAL) (03/09/2015 3:57 AM [facility]) Only the most recent of2 resultswithin the time period is included. Glucose 88 74 - 106 mg/dL 03/09/2015 4:41 AM [facility] Sodium 141 136 - 145 mmol/L 03/09/2015 4:41 AM [facility] Potassium 3.2(L) 3.5 - 5.1 mmol/L 03/09/2015 4:41 AM [facility] Chloride 110(H) 98 - 107 mmol/L 03/09/2015 4:41 AM [facility] CO2 22 22 - 31 mmol/L 03/09/2015 4:41 AM BALLROOM DANCE INSTRUCTOR [facility] Calcium 8.0(L) 8.5 - 10.1 mg/dL 03/09/2015 4:41 AM [facility] Anion Gap 9 5 - 20 mmol/L 03/09/2015 4:41 AM [facility] BUN 2(L) 7 - 21 mg/dL 03/09/2015 4:41 AM [facility] Creatinine 0.41(L) 0.50 - 1.30 mg/dL 03/09/2015 4:41 AM BALLROOM DANCE INSTRUCTOR [facility] eGFR by MDRD >60 >60 mL/min/1.7 3m2 03/09/2015 4:41 AM BALLROOM DANCE INSTRUCTOR [facility] eGFR by MDRD >60 >60 mL/min/1.7 3m2 03/09/2015 4:41 AM [facility] Blood BLOOD SPECIMEN / Unknown Lab Venipuncture / Unknown 03/09/2015 3:57 AM BALLROOM DANCE INSTRUCTOR 03/09/2015 4:02 AM BALLROOM DANCE INSTRUCTOR Jose Antonio Saravia MD LAB - CHEMISTRY CJ SINHA Performing Organization Address City/[facility]/ZIP Co de Phone Number [facility] [address] [place] [phone] * (ABNORMAL) PHOSPHORUS BLOOD (03/09/2015 3:57 AM BALLROOM DANCE INSTRUCTOR) Only the most recent of2 resultswithin the time period is included. Phosphorus 2.4(L) 2.5 - 4.9 mg/dL 03/09/2015 4:41 AM [facility] Blood BLOOD SPECIMEN / Unknown Lab Venipuncture / Unknown 03/09/2015 3:57 AM BALLROOM DANCE INSTRUCTOR 03/09/2015 4:02 AM BALLROOM DANCE INSTRUCTOR Jose Antonio Saravia MD LAB - CHEMISTRY CJ SINHA Performing Organization Address City/[facility]/ZIP Co de Phone Number [facility] [address] [place] [phone] * MAGNESIUM BLOOD (03/09/2015 3:57 AM BALLROOM DANCE INSTRUCTOR) Only the most recent of2 resultswithin the time period is included. Magnesium 1.9 1.6 - 2.6 mg/dL 03/09/2015 4:41 AM BALLROOM DANCE INSTRUCTOR [facility] Blood BLOOD SPECIMEN / Unknown Lab Venipuncture / Unknown 03/09/2015 3:57 AM BALLROOM DANCE INSTRUCTOR 03/09/2015 4:02 AM BALLROOM DANCE INSTRUCTOR Jose Antonio Saravia MD LAB - CHEMISTRY CJ SINHA Performing Organization Address [facility]/ZIP Co de Phone Number [facility] [address] [place] [address] * BLOOD TYPE VERIFICATION (03/08/2015 4:35 PM BALLROOM DANCE INSTRUCTOR) ABO A 03/08/2015 5:48 PM BALLROOM DANCE INSTRUCTOR [facility] Rh Type Positive 03/08/2015 5:48 PM BALLROOM DANCE INSTRUCTOR [facility] Miscellaneous samples (specimen) BLOOD SPECIMEN / Unknown Venipuncture / Unknown 03/08/2015 4:35 PM BALLROOM DANCE INSTRUCTOR 03/08/2015 5:29 PM BALLROOM DANCE INSTRUCTOR Marciano Tamez MD LAB - BLOOD BANK MYLES GUERRERO Performing Organization Address [facility] Co de Phone Number [facility] [address] [place] [address] * EKG 12-LEAD (03/08/2015 3:38 PM BALLROOM DANCE INSTRUCTOR) Ventricular Rate 85 BPM [facility] MUSE Atrial Rate 85 BPM [facility] M[facility] P-R Interval 194 ms [facility] MUSE QRS Duration ms 88 ms [facility] MUSE Q-T Interval ms 366 ms [facility] QTC Calculation (Bezet) 435 ms [facility] MUSE Calculated P [place] 2 degrees [facility] MUSE Calculated R [place] 30 degrees [facility] MUSE Calculated T [place] 6 degrees HC MUSE Interpretation EKG NORMAL SINUS RHYTHM NORMAL ECG NO PREVIOUS ECGS AVAILABLE Confirmed by MD Kavitha, Aly ([id number]) on 03/09/2015 8:55:45 AM [facility] MUSE 03/08/2015 3:38 PM BALLROOM DANCE INSTRUCTOR 03/09/2015 8:55 AM BALLROOM DANCE INSTRUCTOR Oanh Julian MD ECG ORDERABLES Performing Organization Address City/[facility]/ZIP Co de Phone Number [facility]USE * GLUCOSE PROTEIN KETONE URINE - POINT OF CAR (03/07/2015 1:56 PM BALLROOM DANCE INSTRUCTOR) Glucose UA negative Negative [facility] POCT TESTING Protein UA 1+ Negative [facility] POCT TESTING Ketone UA negative Negative [facility] POCT TEST[facility] QC Verified Yes Yes [facility] POC T TESTING Urine specimen (specimen) URINE / Unknown 03/07/2015 1:56 PM BALLROOM DANCE INSTRUCTOR Juan Carlos Anand MD LAB - POINT OF CARE ORDERABLES [facility] POCT TESTING [address] [phone] * GLUCOSE - POINT OF CARE (AMB) [facility] (03/01/2015) Only the most recent of2 resultswithin the time period is included. Marciano Tamez MD LAB - POINT OF CARE ORDERABLES Performing Organization Address City/[facility] Co de Phone Number [facility] * TSH (02/22/2015 10:01 AM CDT) TSH 1.29 mIU/L [facility] ([facility]) Comment: ?Reference Range ?> or = 20 Years ??0.40-4.50 ? Ranges ?First trimester ?0.26-2.66 ?Second trimester ?? 0.55-2.73 ?Third trimester ?0.43-2.91 REPORT COMMENT: PREFERRED LAB:->[facility]; PREFERRED LAB:->[facility]; PREFERRED LAB: Test Performed at: [facility] [place] [id number] [place] [address] ??[phone] ENMANUEL BRIONES DO,MPH Blood specimen (specimen) BLOOD SPECIMEN / Unknown 02/22/2015 10:01 AM CDT 02/22/2015 10:02 AM CDT Narrative [facility] ([facility]) - 02/23/2015 7:00 AM CDT Preferred Lab:->[facility] Marciano Tamez MD LAB - CHEMISTRY CJ SINHA Performing Organization Address [facility] de Phone Number [facility] ([facility]) * T4 FREE (02/22/2015 10:01 AM CDT) T4 Free 1.1 0.8 - 1.8 ng/dL [facility] ([facility]) Comment: Test Performed at: [facility] [address] ??[phone] ENMANUEL BRIONES DO,MPH Blood specimen (specimen) BLOOD SPECIMEN / Unknown 02/22/2015 10:01 AM CDT 02/22/2015 10:02 AM CDT Narrative [facility] ([facility]) - 02/23/2015 7:00 AM CDT Preferred Lab:->[facility] Marciano Tamez MD LAB - CHEMISTRY CJ SINHA Performing Organization Address [facility] de Phone Number [facility] ([facility]) * ECHOCARDIOGRAM 2D WITH DOPPLER (02/16/2015 2:19 PM CDT) 02/16/2015 2:19 PM CDT Narrative [facility] - 02/17/2015 11:15 AM CDT Transthoracic Echocardiogram 2D, M-mode, Doppler, and Color Doppler Patient: OANH ORTIZ MR number: [id number] Height: 66 in Weight: 225.5 lb BSA: 2.11 m?? Study date: 16-Feb-2015 : 1985 Age: 29 years Gender: Female Race: 2 Referring Physician: ??Marciano Tamez MD Rn Family Practice: ??Valerie Thurman RDCS Reading Physician: ??Savanah Marks DO Summary: - ??Clinical question: - ??Heart murmur - ??Left ventricle: - ??Systolic function was normal. Ejection fraction was estimated in the range of 60 % to 65 %. - ??There were no regional wall motion abnormalities. - ??Wall thickness was mildly increased. - ??Aortic valve: - ??The valve was not visualized well enough to rule out a bicuspid morphology. Leaflets exhibited normal thickness and normal cuspal separation. Indications: Heart murmur Procedure: The procedure was performed in the echo lab. This was a routine study. The transthoracic approach was used. The study included complete 2D imaging, M-mode, complete spectral Doppler, and color Doppler. Systolic blood pressure was 117 mmHg. Diastolic blood pressure was 81 mmHg. Left ventricle: Size was normal. Systolic function was normal. Ejection fraction was estimated in the range of 60 % to 65 %. There were no regional wall motion abnormalities. Wall thickness was mildly increased. Aortic valve: The valve was not visualized well enough to rule out a bicuspid morphology. Leaflets exhibited normal thickness and normal cuspal separation. Doppler: There was no stenosis. There was no regurgitation. Aorta: The root exhibited normal size. Mitral valve: Valve structure was normal. There was normal leaflet separation. Doppler: The transmitral velocity was within the normal range. There was no evidence for stenosis. There was no regurgitation. Left atrium: Size was normal. Right ventricle: The size was normal. Systolic function was normal. Wall thickness was normal. Pulmonic valve: Leaflets exhibited normal thickness, no calcification, and normal cuspal separation. Doppler: There was mild regurgitation. Pulmonary artery: The size was normal. Doppler: The tricuspid jet envelope definition was inadequate for estimation of RV systolic pressure. There are no indirect findings (abnormal RV volume or geometry, altered pulmonary flow velocity profile, or leftward septal displacement) which would suggest moderate or severe pulmonary hypertension. Tricuspid valve: The valve structure was normal. There was normal leaflet separation. Doppler: The transtricuspid velocity was within the normal range. There was no evidence for tricuspid stenosis. There was trivial regurgitation. Right atrium: Size was normal. Systemic veins: IVC: The inferior vena cava was normal in size and course. Respirophasic changes were normal. Pericardium: The pericardium was normal in appearance. Measurement tables Other echo measurements (Reference normals) Estimated CVP ?? 5 mmHg ?? (--) System measurement tables 2D Ao Diam: 3.3 cm LVOT Diam: 2 cm LA Diam: 2.8 cm LAAs A2C: 19.1 cm2 LAAs A4C: 19 cm2 LAESV A-L A2C: 63.8 ml LAESV A-L A4C: 53.9 ml LAESV Index (A-L): 30.1 ml/m2 LAESV MOD A2C: 59.2 ml LAESV MOD A4C: 48.5 ml LAESV(A-L): 63.5 ml LALs A2C: 4.9 cm IVSd: 1.3 cm LVIDd: 4 cm LVIDs: 2.6 cm LVPWd: 1.1 cm CW AV VTI: 33.7 cm AV Vmax: 1.5 m/s AV Vmean: 0.9 m/s AV maxP.4 mmHg AV meanP.1 mmHg PV Vmax: 1 m/s PV maxP.3 mmHg PW ADAIR (VTI): 2.5 cm2 ADAIR Vmax: 2.6 cm2 LVOT VTI: 26.5 cm LVOT Vmax: 1.2 m/s LVOT Vmean: 0.8 m/s LVOT maxP.6 mmHg LVOT meanP mmHg MV E/A Ratio: 1.2 MV PHT: 65.6 ms LATERAL E': 0.1 m/s LATERAL E/E': 7.4 SEPTAL E': 0.1 m/s SEPTAL E/E': 9.1 Prepared and signed by Savanah Marks DO Signed 17-Feb-2015 11:15:13 Procedure Note Savanah Marks DO - 02/17/2015 Transthoracic Echocardiogram 2D, M-mode, Doppler, and Color Doppler Patient: OANH ORTIZ MR number: [id number] Height: 66 in Weight: 225.5 lb BSA: 2.11 m?? Study date: 16-Feb-2015 : 1985 Age: 29 years Gender: Female Race: 2 Referring Physician: Marciano Tamez MD Rn Family Practice: Valerie Thurman RDCS Reading Physician: Savanah Marks DO Summary: - Clinical question: - Heart murmur - Left ventricle: - Systolic function was normal. Ejection fraction was estimated in the range of 60 % to 65 %. - There were no regional wall motion abnormalities. - Wall thickness was mildly increased. - Aortic valve: - The valve was not visualized well enough to rule out a bicuspid morphology. Leaflets exhibited normal thickness and normal cuspal separation. Indications: Heart murmur Procedure: The procedure was performed in the echo lab. This was a routine study. The transthoracic approach was used. The study included complete 2D imaging, M-mode, complete spectral Doppler, and color Doppler. Systolic blood pressure was 117 mmHg. Diastolic blood pressure was 81 mmHg. Left ventricle: Size was normal. Systolic function was normal. Ejection fraction was estimated in the range of 60 % to 65 %. There were no regional wall motion abnormalities. Wall thickness was mildly increased. Aortic valve: The valve was not visualized well enough to rule out a bicuspid morphology. Leaflets exhibited normal thickness and normal cuspal separation. Doppler: There was no stenosis. There was no regurgitation. Aorta: The root exhibited normal size. Mitral valve: Valve structure was normal. There was normal leaflet separation. Doppler: The transmitral velocity was within the normal range. There was no evidence for stenosis. There was no regurgitation. Left atrium: Size was normal. Right ventricle: The size was normal. Systolic function was normal. Wall thickness was normal. Pulmonic valve: Leaflets exhibited normal thickness, no calcification, and normal cuspal separation. Doppler: There was mild regurgitation. Pulmonary artery: The size was normal. Doppler: The tricuspid jet envelope definition was inadequate for estimation of RV systolic pressure. There are no indirect findings (abnormal RV volume or geometry, altered pulmonary flow velocity profile, or leftward septal displacement) which would suggest moderate or severe pulmonary hypertension. Tricuspid valve: The valve structure was normal. There was normal leaflet separation. Doppler: The transtricuspid velocity was within the normal range. There was no evidence for tricuspid stenosis. There was trivial regurgitation. Right atrium: Size was normal. Systemic veins: IVC: The inferior vena cava was normal in size and course. Respirophasic changes were normal. Pericardium: The pericardium was normal in appearance. Measurement tables Other echo measurements (Reference normals) Estimated CVP 5 mmHg (--) System measurement tables 2D Ao Diam: 3.3 cm LVOT Diam: 2 cm LA Diam: 2.8 cm LAAs A2C: 19.1 cm2 LAAs A4C: 19 cm2 LAESV A-L A2C: 63.8 ml LAESV A-L A4C: 53.9 ml LAESV Index (A-L): 30.1 ml/m2 LAESV MOD A2C: 59.2 ml LAESV MOD A4C: 48.5 ml LAESV(A-L): 63.5 ml LALs A2C: 4.9 cm IVSd: 1.3 cm LVIDd: 4 cm LVIDs: 2.6 cm LVPWd: 1.1 cm CW AV VTI: 33.7 cm AV Vmax: 1.5 m/s AV Vmean: 0.9 m/s AV maxP.4 mmHg AV meanP.1 mmHg PV Vmax: 1 m/s PV maxP.3 mmHg PW ADAIR (VTI): 2.5 cm2 ADAIR Vmax: 2.6 cm2 LVOT VTI: 26.5 cm LVOT Vmax: 1.2 m/s LVOT Vmean: 0.8 m/s LVOT maxP.6 mmHg LVOT meanP mmHg MV E/A Ratio: 1.2 MV PHT: 65.6 ms LATERAL E': 0.1 m/s LATERAL E/E': 7.4 SEPTAL E': 0.1 m/s SEPTAL E/E': 9.1 Prepared and signed by Savanah Marks DO Signed 17-Feb-2015 11:15:13 Marciano Tamez MD ECHO ORDERABLES Performing Organization Address [facility] Co de Phone Number [facility] [address] [place] [address] * PROC ECHOCARDIOGRAM COMP W BUBBLE STUDY (02/15/2015) Marciano Tamez MD ECG ORDERABLES Performing Organization Address [facility] Co de Phone Number [facility] * GLUCOSE CHALLENGE (02/02/2015 11:30 AM CDT) Only the most recent of2 resultswithin the time period is included. Glucose, 50 gm screen 129 <135 mg/dL [facility] ([facility]) Comment: Test Performed at: [facility] [id number] [place] [address] ??[phone] ENMANUEL BRIONES DO,MPH Blood specimen (specimen) 02/02/2015 11:30 AM CDT 02/02/2015 11:31 AM CDT Marciano Tamez MD LAB - CHEMISTRY [facility]J [facility] ([facility]) * PROFILE I W/ HBSAG (04/29/1998 12:00 AM [employer]) Only the most recent of2 resultswithin the time period is included. Antibody Screen neg [facility] Rh Type pos [facility] ABO A [facility] 04/29/1998 Narrative [facility] - 04/29/1998 12:00 AM [employer] This external order was created through the Results Console. Historical Provider LAB - CHEMISTRY O RDERAGUSTAVO Performing Organization Address [facility]/ZIP Co de Phone Number [facility] * HIV-1 HIV-2 ANTIBODIES W RFLX REFLEXED (04/29/1998 12:00 AM [employer]) HIV 1/2 EIA Antibody neg [facility] 04/29/1998 Narrative [facility] - 04/29/1998 12:00 AM [employer] This external order was created through the Results Console. Historical Provider LAB - CHEMISTRY O RDERAGUSTAVO Performing Organization Address City/[facility]/ZIP Co de Phone Number [facility] Care Teams Sql Report Writer Relationship Specialty Start Date End Date Steve Davis MD [employer] [address] [place] [phone] PCP - General Family Medicine 03/30/15
--- OUTSIDE RECORDS SUMMARY | 2024-04-29 22:42 | XMS_ITS | Encounter Summary ---
Author Organization [facility] Address [address] [place] [id number] Care Team Providers Care Emery Grinder Name Role Phone Steve Davis MD Primary Care Provider [phone] Reason for Visit * Auth/Cert Specialty Diagnoses / Procedures Referred By Contac t Referred To Contact Obstetrics and Gynecology Procedures SECTION EMERGENCY [facility] 6w Mother Baby [address] [place] [address] Referral ID Status Reason Start Date Expiration Date Visits Re quested Visits Authorized [id number] 03/31/2015 09/27/2015 1 Encounter Details Date Type Department Care Team (Latest Contact Info) Description 03/30/2015 7:38 PM ENTRY CLERK - 04/03/2015 4:17 PM [facility] Hospital Encounter [facility] 6W MOTHER/BABY [address] [place] [address] Jose Antonio Perez MD [address] [place] [address] Obstetrics Discharge Disposition: Home or Self Care Social History Tobacco Use Types Packs/Day Years Used Date Smoking Tobacco: Former Cigarettes Q uit: 04/29/2010 Smokeless Tobacco: Never Alcohol Use Standard Drinks/Week Comments No 0 (1 standard drink = 0.6 oz pur e alcohol) Sex and Gender Information Value Date Recorded Sex Assigned at Not on file Gender Identity Not on file Sexual Orientation Not on file documented as of this encounter Last Filed Vital Signs Vital Sign Reading Time Taken Comments Blood Pressure 156/90 04/03/2015 8:00 AM ENTRY CLERK Pulse 83 04/03/2015 8:00 AM ENTRY CLERK Temperature 36.7 ??C (98.1 ??F) 04/03/2015 8:00 AM CS T Respiratory Rate 16 04/03/2015 8:00 AM ENTRY CLERK Oxygen Saturation 96% 03/31/2015 3:07 AM ENTRY CLERK Inhaled Oxygen Concentration - - Weight - - Height - - Body Mass Index - - documented in this encounter Functional Status Functional Status Response [...] No 03/30/2015 documented as of this encounter Discharge Summaries * Darío Tabor MD - 04/20/2015 1:29 PM CST customs entry writer Discharge Summary 04/20/2015, 1:29 PM Date of Admission: 03/30/2015 Date of Discharge: 04/03/2015 Admission Diagnosis: 30 y.o. at 35w1d with DCDA twins, PTL, preeclampsia without severe features, bipolar disorder Discharge Diagnosis: 30 y.o. s/p section Service: Maternal Medicine Consults: Case Management HPI: Oanh Ortiz is a 30 y.o. at 35w1d; care with [facility]. She presented with increased contractions after being discharged earlier in the day from L&D. She had previously been admitted for advanced cervical dilation of 6cm and expectant management, but her contractions stopped and no further cervical change occurred. She wanted to go home and was discharged. On her way home, the contractions started again and became more frequent so she returned. Her cervix was 7.5/100/-1 on arrival to triage. complicated by: Patient Active Problem List Diagnosis Date Noted ??? Status post section Priority: Not Prioritized ??? Threatened labor 03/30/2015 Priority: Not Prioritized ??? Hypertension Priority: Not Prioritized ??? Hyperemesis gravidarum with electrolyte imbalance Priority: Not Prioritized ??? Hypokalemia Priority: Not Prioritized ??? Maternal iron deficiency anemia affecting , antepartum Priority: Not Prioritized ??? Encounter for suspected PROM, with rupture of membranes not found 11/15/2014 Priority: Not Prioritized ??? Dichorionic diamniotic twin 11/14/2014 Priority: Not Prioritized ??? product of IVF 11/14/2014 Priority: Not Prioritized ??? Depression 11/14/2014 Priority: Not Prioritized ??? Obesity 11/14/2014 Priority: Not Prioritized ??? History of LEEP (loop electrosurgical excision procedure) of cervix complicating 11/14/2014 In 2005 ??? Supervision of high risk in second trimester 11/14/2014 Dating: IVF ??? History of ectopic 11/14/2014 Salpingectomy in 2009 Hospital Course: Patient was admitted to L&D for expectant management of labor. FHR decelerations of both twins occurred, with the presenting twin recovering with maternal repositioning, but the non-presenting twin having persistent deceleration to the 70s-80s. The uterus was soft to palpation and maternal BP was normal. As there was no identifiable cause to treat for FHR decelerations, the patient was taken to the OR, where FHR was still bradycardic. Patient underwent emergent delivery under general anesthesia. Delivery: For full details of delivery, please refer to operative note or delivery summary. Delivery Type: Low Transverse Section Estimated Blood Loss: 1400mL Anesthesia/Analgesia: epidural with Duramorph and General Information for the patient's : Vasile Ortiz September [[id number]] Date of 03/30/2015 Time of : 9:26 PM Sex: Female Weight: 2480 g (5 lb 7.5 oz) (1 min): 7 (5 min): 8 (10 min): Information for the patient's : Cortney Ortiz [[id number]] Date of 03/30/2015 Time of : 9:27 PM Sex: Female Weight: 2350 g (5 lb 2.9 oz) (1 min): 3 (5 min): 9 (10 min): Course: BP's were normal to mild range elevated. Patient remained asymptomatic . Her course included mild asymptomatic anemia, which was treated with PO iron and IV Venofer. On day of discharge, she was tolerating PO, voiding spontaneously, and ambulating without difficulty. Patient is breast feeding. She does not want contraception. Results: No results for input(s): ABORH in the last 31733 hours. Recent Labs Component Name 03/31/15 0519 03/30/15200003/30/15 0422 03/29/15 0924 WBC - 12.4* 10.4 8.2 HGB 7.7* 10.6* 10.7* 10.0* HCT 23.4* 32.1* 33.1* 30.3* PLTCOUNT - 173 164 153 Discharge Vitals: BP 156/90 mmHg Pulse 83 Temp(Src) 98.1 ??F Resp 16 Discharge Diagnosis: s/p CS Disposition: Home on day # 4. Follow-up: with MIKE M in 1 week for BP check and incision check and in 6 weeks for routine care. Continue these medications at home: Discharge Medication List As of 04/03/2015 4:18 PM START taking these medications Instructions Authorizing Provider docusate sodium 100 MG capsule Commonly known as: COLACE Take 1 Cap by mouth 2 times daily Leander Srsuzettei ibuprofen 600 MG tablet Commonly known as: MOTRIN Take 1 Tab by mouth every 6 hours as needed for Pain Leander Sruti lanolin ointment Commonly known as: LANOLIN Apply to affected area as needed (Sore or cracked nipples.) Leander, Sruti oxyCODONE-acetaminophen 5-325 MG tablet Commonly known as: PERCOCET Take 1 Tab by mouth every 4 hours as needed Sr Leanderuti CHANGE how you take these medications Instructions Authorizing Provider * ferrous sulfate 325 (65 FE) MG tablet What changed: Another medication with the same name was added. Make sure you understand how and when to take each. Take 1 Tab by mouth 2 times daily with morning and evening meal Clara Saucedo * ferrous sulfate 325 (65 FE) MG tablet What changed: You were already taking a medication with the same name, and this prescription was added. Make sure you understand how and when to take each. Take 1 Tab by mouth 2 times daily with morning and evening meal Sr Leanderuti * Notice: This list has 2 medication(s) that are the same as other medications prescribed for you. Read the directions carefully, and ask your doctor or other care provider to review them with you. CONTINUE taking these medications Instructions Authorizing Provider acetaminophen 500 MG tablet Commonly known as: TYLENOL Take 500 mg by mouth every 4 hours as needed for Fever or Pain Maximum allowable Acetaminophen amount = 4 Grams (4000 mg) / 24 hours. [id number]-pzpezahxbitky-vniajyxd 50-325-40 MG tablet Commonly known as: FIORICET Take 1 Tab by mouth every 4 hours as needed for Headache or Migraine Surugucchi, Sruti vitamin 28-0.8 MG tablet Take 1 Tab by mouth once daily STOP taking these medications DICLEGIS PO metoclopramide 10 MG tablet Commonly known as: REGLAN ondansetron (disintegrating) 4 MG tablet Commonly known as: ZOFRAN ODT Discharge Instructions: Discharge Procedure Orders Why you were hospitalized Order Specific Question Answer Comments Your discharge diagnosis is delivery delivered [[id number]] No special diet needed Resume your normal home diet as tolerated. Eat well-balanced meals that include foods from all of the food groups. Drink plenty of fluids It is important that you stay well hydrated. You should drink at least eight to ten 8-ounce glassesof water per day. Nothing per vagina For 6 weeks or until cleared by your primary OB. Do not drive While taking narcotic pain medications, or until you can slam on the brake without pain. No heavy lifting Do not lift anything over 20 pounds for 6 weeks. Contact your provider Call your BRIGADIER if you have questions or concerns, or for any of the following issues: -- for a temperature higher than 100.4 F -- for pain that gets worse or does not get better after taking your pain medication(s) as directed -- if you see bleeding from your incision/laceration (if applicable) please refer to your dischargeinstructions. -- if your incision looks infected (red, swollen, warm to the touch, or non- clear, foul-smelling drainage) -- if you have severe cramping or increased vaginal bleeding -- if you experience new onset headaches, visual changes or increased abdominal pain not relieved with pain medication Shower and bathing instructions May shower any time. Discuss with your physician regarding tub baths. Follow up with provider Order Specific Question Answer Comments Follow Up Instructions: Please follow up in one week for BP check and incision check and again in 6weeks for routine care. Light activity For two weeks Darío Tabor MD 04/20/2015 1:29 PM Y CLERK documented in this encounter Discharge Instructions * Discharge Instructions* Nitza Bliss RN - 04/03/2015 1:24 PM ENTRY CLERK DELIVERED MOTHER DISCHARGE INSTRUCTIONS Refer to the Booklet given during your stay for more information. Please contact your forest pathologist for the followin. Any burning or itching when urinating. . 2. Any significant increase or change in color or odor of vaginal discharge and/or any pus drainingfrom your abdominal incision (). 3. Any significant increase in pain, tenderness, or redness in your abdominal incision (). 4. Any increased vaginal bleeding that may contain clots. 5. Temperature greater than 101 degrees or as instructed by your care provider. 6. Any pus or blood draining from nipples. Remember to collect all your belongings kept at the bedside, for example: your cell phone and cell phone grease and tallow pumper. PLEASE REMEMBER: 1. Always place your infant on his/her back to sleep. 2. Always use a car safety seat when transporting your child. Y CLERK documented in this encounter Medications at Time of Discharge Medication Sig Dispensed Refills Start Date End Date acetaminophen (TYLENOL) 500 MG tablet Take 500 mg by mouth every 4 hours as needed for Fever or Pain Maximum allowable Acetaminophen amount = 4 Grams (4000 mg) / 24 hours. butalbital-acetaminoph en-caffeine (FIORICET) 50-325-40 MG tablet Take 1 Tab by mouth every 4 hours as needed for Headache or Migraine 20 Tab 0 03/29/2015 docusate sodium (COLACE) 100 MG capsule Take 1 Cap by mouth 2 times daily 60 Cap 0 04/03/2015 ferrous sulfate 325 (65 FE) MG tablet Take 1 Tab by mouth 2 times daily with morning and evening meal 60 Tab 0 04/03/2015 ferrous sulfate 325 (65 FE) MG tablet Take 1 Tab by mouth 2 times daily with morning and evening meal 60 Tab 2 03/09/2015 ibuprofen (MOTRIN) 600 MG tablet Take 1 Tab by mouth every 6 hours as needed for Pain 60 Tab 0 04/03/2015 lanolin (LANOLIN) ointment Apply to affected area as needed (Sore or cracked nipples.) 40 g 0 04/03/2015 oxyCODONE-acetaminophe n (PERCOCET) 5-325 MG tablet Take 1 Tab by mouth every 4 hours as needed 50 Tab 0 04/03/2015 Vit-Fe Fumarate-FA ( VITAMIN) 28-0.8 MG tablet Take 1 Tab by mouth once daily documented as of this encounter Progress Notes * Nitza Bliss RN - 04/03/2015 4:40 PM CST Shift Summary: Up ad maria elena, voiding without difficulty. Tolerating regular diet. and bonding with baby. Discharge instructions reviewed. Discharged home with baby A. Baby B remains in NICU. Nitza Bliss RN 04/03/2015 4:40 PM Y CLERK * Jose Antonio Perez MD - 04/03/2015 8:28 AM CST R1 OB Progress Note 04/03/2015, 8:28 AM Subjective: Oanh Ortiz is doing well. Pain is controlled. Lochia is small amount. She reports flatus passed, taking full diet without nausea or vomiting. She has ambulated and denies lightheadedness. Villegas is absent, patient is voiding without difficulty. She denies headache, fever, chest pain, shortness of breath, and leg pain. She is breast feeding. Objective: Temp (36hrs) Max:98.4 ??F Vitals: 04/02/15 0756 04/02/15 1659 04/02/15 2358 04/03/15 0800 BP: 152/92 145/72 126/80 156/90 Pulse: 76 92 72 83 Temp: 98.4 ??F 98 ??F 98 ??F 98.1 ??F Resp: 18 16 18 16 SpO2: No intake or output data in the 24 hours ending 04/03/15 0828 No data found. Physical Exam: General: alert, cooperative, no acute distress Heart: regular rate and rhythm Lungs: clear to auscultation bilaterally, non-labored breathing Abdomen: soft, appropriately tender, fundus firm below umbilicus, normal bowel sounds Incision: clean/dry/intact Extremities: no calf tenderness, edema absent Data: Recent Labs Component Name 03/31/15 0519 03/30/15200003/30/15 0422 03/29/15 0924 WBC - 12.4* 10.4 8.2 HGB 7.7* 10.6* 10.7* 10.0* HCT 23.4* 32.1* 33.1* 30.3* PLTCOUNT - 173 164 153 Assessment/Plan: 29 y.o. , s/p CS, PPD# 4 1. complicated by 1. Di/Di twins 2. Mild preE - BP's 120s-150s/70s-90s in past 24 hrs, 156/90 this AM, asymptomatic 2. AF; HR, RR, O2 sats within normal limits 3. /GI: Urinary output is adequate, tolerating regular diet, passing flatus 4. Br/Yoni/Contraception: The patient is breast feeding and does not want contraception 5. Hematologic: Stable, patient asymptomatic. Hgb: 7.7, received one dose of Venofer before IV infiltrated, continue PO iron 6. A+/ Rubella imm/ RPR neg/ HepB neg, HIV neg 7. Baby twin girls, one at bedside/one in NICU. 8. Dispo: continue routine care, discharge today after seen by attending Darío Tabor MD 04/03/2015 8:28 AM Patient seen and evaluated, agree with above findings. Discharge to home. Jose Antonio Perez MD Y CLERK * Yady Jones RN - 04/03/2015 5:49 AM CST Vital signs stable and assessment within normal limits. Up ad maria elena, voiding without difficulty. Ambulating in hallway. Tolerating regular diet. and bonding well with baby A. Supplementing with formula and pumped breast milk. Baby B in NICU. Y CLERK * Nitza Bliss RN - 04/02/2015 6:08 PM CST Shift Summary: Up ad maria elena, voiding without difficulty. Ambulated in halls x 3. Tolerating regular diet. Reports positive flatus. and bonding with baby A, visits baby B in NICU frequently. Supplementing with formula and pumped breast milk. Hibiclens given and instructed to use with today's shower and first shower at home. Nitza Bliss RN 04/02/2015 6:10 PM Y CLERK * Jose Antonio Perez MD - 04/02/2015 9:10 AM CST R1 OB Progress Note 04/02/2015, 9:10 AM Subjective: Oanh Ortiz is doing well. Pain is controlled. Lochia is small amount. She reports flatus passed, taking full diet without nausea or vomiting. She has ambulated and denies lightheadedness. Villegas is absent, patient is voiding without difficulty. She denies headache, fever, chest pain, shortness of breath, and leg pain. She is breast feeding. Objective: Temp (36hrs) Max:98.5 ??F Vitals: 04/01/15 1549 04/01/15 1903 04/01/15 2338 04/02/15 0756 BP: 120/84 146/72 134/74 152/92 Pulse: 80 Temp: 98 ??F 98.1 ??F Resp: 18 16 18 SpO2: No intake or output data in the 24 hours ending 04/02/15 0910 No data found. Physical Exam: General: alert, cooperative, no acute distress Heart: regular rate and rhythm Lungs: clear to auscultation bilaterally, non-labored breathing Abdomen: soft, appropriately tender, fundus firm below umbilicus, normal bowel sounds Incision: clean/dry/intact Extremities: no calf tenderness, edema absent Data: Recent Labs Component Name 03/31/15 0519 03/30/15200003/30/15 0422 03/29/15 0924 WBC - 12.4* 10.4 8.2 HGB 7.7* 10.6* 10.7* 10.0* HCT 23.4* 32.1* 33.1* 30.3* PLTCOUNT - 173 164 153 Assessment/Plan: 29 y.o. , s/p CS, PPD# 3 1. complicated by 1. Di/Di twins 2. Mild preeclampsia - BP's 120s-140s/70s-80s in past 24hrs, this AM 152/92 2. AF; HR, RR, O2 sats within normal limits 3. /GI: Urinary output is adequate, tolerating regular diet, passing flatus 4. Br/Yoni/Contraception: The patient is breast feeding and does not want contraception 5. Hematologic: Stable, patient asymptomatic. Hgb: 7.7, received one dose of Venofer before IV infiltrated, continue PO iron 6. A+/ Rubella imm/ RPR neg/ HepB neg, HIV neg 7. Baby twin girls, one at bedside/one in NICU. 8. Dispo: continue routine care Darío Tabor MD 04/02/2015 9:10 AM Patient seen and evaluated, agree with above findings. Continue routine care. Jose Antonio Perez MD Y CLERK * Brooke Sheikh, RIYA - 04/02/2015 6:35 AM CST VSS. Up ad maria elena. Caring for infant appropriately. , supplementing breastfeedingsand then pumping to establish breastmilk supply and help to prevent further weight loss. Taking scheduled ibuprofen and percocet prn for abd incision discomfort and back discomfort. LCTA carey. Abd round and soft with bs + and + flatus passed. Abd incision intact and wnl. Fu/2. Scant rubra lochia. Verbalized that she's hopeful and excited that other transfers from NICU today. Denies having any dizziness during the night. Y CLERK * Brooke Sheikh, RIYA - 04/01/2015 8:19 PM CST Up ad maria elena. Denies having any dizziness since change of shift. Gait steady. Has pumped breasts. Informed of weight loss. Instructed to call if having difficulties with latch or getting to supplement breast feedings with formula. Further instructed to ensure that infant takes at least 15 ml of formula after breastfeedings. Also aware to pump breasts every 3 hours to establish good breastmilk supply. Pt and verbalized understanding all information received. Y CLERK * Vivian Lynch RN - 04/01/2015 5:18 PM CST Vital signs stable. Up ad maria elena, ambulates to and from NICU, without difficulty. Denies dizziness with ambulation, voiding without difficulty. Regular diet, passing gas. Pain controlled with Motrin andPercocet. Breast feeding baby well, latching with nipple shield, pumping for additional stimulation. Supplementing baby with Enfacare 22 fredy per MD order after baby breast feeds. Bonding well with newborns. Y CLERK * Jose Antonio Perez MD - 04/01/2015 6:59 AM CST R1 OB Progress Note 04/01/2015, 6:59 AM Subjective: Oanh Ortiz is doing well. Pain is controlled. Lochia is small amount. She reports flatus passed, taking full diet without nausea or vomiting. She has ambulated and denies lightheadedness. Villegas is absent, patient is voiding without difficulty. She denies headache, fever, chest pain, shortness of breath, and leg pain. She is breast feeding. Objective: Temp (36hrs) Max:98.5 ??F Vitals: 03/31/15 1325 03/31/15 1715 03/31/15 2130 04/01/15 0203 BP: 128/68 142/78 125/81 125/84 Pulse: 92 88 Temp: 98.4 ??F 98.3 ??F 98.2 ??F 98.5 ??F Resp: 18 18 17 16 SpO2: Intake/Output Summary (Last 24 hours) at 04/01/15 0659 Last data filed at 03/31/15 2122 Gross per 24 hour Intake 1325 ml Output 2100 ml Net -775 ml No data found. Physical Exam: General: alert, cooperative, no acute distress Heart: regular rate and rhythm Lungs: clear to auscultation bilaterally, non-labored breathing Abdomen: soft, appropriately tender, fundus firm below umbilicus, normal bowel sounds Incision: clean/dry/intact Extremities: no calf tenderness, edema absent Data: Recent Labs Component Name 03/31/15 0519 03/30/15200003/30/15 0422 03/29/15 0924 WBC - 12.4* 10.4 8.2 HGB 7.7* 10.6* 10.7* 10.0* HCT 23.4* 32.1* 33.1* 30.3* PLTCOUNT - 173 164 153 Assessment/Plan: 29 y.o. , s/p CS, PPD# 2 1. complicated by 1. Di/Di twins 2. Mild preeclampsia - BP mostly wnl in past 24hrs, one isolated 142/78 2. AF; VS within normal limits 3. /GI: Urinary output is adequate, tolerating regular diet, passing flatus 4. Br/Yoni/Contraception: The patient is breast feeding and does not want contraception 5. Hematologic: Stable, patient asymptomatic. Hgb: 7.7, continue Venofer 6. A+/ Rubella imm/ RPR neg/ HepB neg, HIV neg 7. Baby twin girls, one at bedside/one in NICU. 8. Dispo: continue routine care Darío Tabor MD 04/01/2015 6:59 AM Patient seen and evaluated, agree with above findings. Continue routine care. Jose Antonio Perez MD Y CLERK * Jennifer Meza RN - 04/01/2015 5:51 AM CST Shift summary: VSS. Fundus firm and WDL. Bleeding has been small. Incision well approximated with no drainage noted. Pt up ad maria elena and voiding without difficulty. Pain controlled with scheduled motrinand PRN percocet. infant with nipple shield. Mom is pumping to establish milk production as well as for in NICU. Supplemented once this shift due to low blood sugars. Infant rooming in with mom and bonding well. No concerns at this time. Y CLERK * Yola Mueller RN - 03/31/2015 6:42 PM CST VSS. Pt up ad maria elena, voiding on her own. Tolerating regular diet. Pain is controlled with medication.Breast feeding well. To NICU to [place] with other . Y CLERK * Jose Antonio Perez MD - 03/31/2015 6:48 AM CST R1 OB Progress Note 03/31/2015, 6:48 AM Subjective: Oanh Ortiz is doing well. Pain is controlled. Lochia is small amount. She reports no flatus yet, taking liquids without nausea or vomiting. She has ambulated and denies lightheadedness. Villegas is present. She denies headache, fever, chest pain, shortness of breath, and leg pain. She is breast feeding. Objective: Temp (36hrs) Max:98.5 ??F Vitals: 03/31/15 0053 03/31/15 0054 03/31/15 0200 03/31/15 0307 BP: 135/75 134/73 Pulse: 94 94 Temp: 98.3 ??F 98.1 ??F 98 ??F Resp: SpO2: 96% 95% 96% 96% Intake/Output Summary (Last 24 hours) at 03/31/15 0648 Last data filed at 03/31/15 0646 Gross per 24 hour Intake 4252.99 ml Output 2100 ml Net 2152.99 ml No data found. Physical Exam: Deferred - patient about to breastfeed Data: Recent Labs Component Name 03/31/15 0519 03/30/15200003/30/15 0422 03/29/15 0924 WBC - 12.4* 10.4 8.2 HGB 7.7* 10.6* 10.7* 10.0* HCT 23.4* 32.1* 33.1* 30.3* PLTCOUNT - 173 164 153 Assessment/Plan: 29 y.o. , s/p CS, PPD# 1 1. complicated by 1. Di/Di twins 2. Mild preeclampsia - BP wnl since 23:00 yesterday 2. AF; VS within normal limits 3. /GI: Urinary output is adequate, tolerating liquid diet, ADAT 4. Br/Yoni/Contraception: The patient is breast feeding and does not want contraception 5. Hematologic: Stable, patient asymptomatic. Hgb: 7.7, continue PO iron 6. A+/ Rubella imm/ RPR neg/ HepB neg, HIV neg 7. Baby twin girls, one at bedside/one in NICU. 8. Dispo: continue routine care Darío Tabor MD 03/31/2015 6:48 AM Patient seen and evaluated, agree with above findings. Continue routine care. Jose Antonio Perez MD Y CLERK * Jennifer Meza RN - 03/31/2015 6:24 AM CST Shift summary: Pt admitted to 621 at 0200. Education, paperwork and room orientation completed. VSS. Fundus firm and WDL. Bleeding has been small to moderate. Incision has bandage on with no drainageto be noted. Villegas still in place with fluids running. I&O completed. Pt got up this AM to dangle and sat up in chair. Tolerated well. Pain controlled with torodol and morphine. infant with nipple shield. Pumping for other twin in NICU. rooming in with mom and bonding appropriately. Father at bedside all night. Will continue to monitor. No concerns. Y CLERK documented in this encounter H&P Notes * Elmira Ellis MD - 03/30/2015 7:46 PM CST PGY-1 Obstetric H&P CC: contractions HPI: 29 y.o. at 35w1d weeks gestation. Dating: by Last Menstrual Period and date of implantation (IVF). Estimated Date of Delivery: 05/03/15 Care: With [facility] Patient's is complicated by: Patient Active Problem List Diagnosis Date Noted ??? Threatened labor 03/30/2015 Priority: Not Prioritized ??? Hypertension Priority: Not Prioritized ??? Hyperemesis gravidarum with electrolyte imbalance Priority: Not Prioritized ??? Hypokalemia Priority: Not Prioritized ??? Maternal iron deficiency anemia affecting , antepartum Priority: Not Prioritized ??? Encounter for suspected PROM, with rupture of membranes not found 11/15/2014 Priority: Not Prioritized ??? Dichorionic diamniotic twin 11/14/2014 Priority: Not Prioritized ??? product of IVF 11/14/2014 Priority: Not Prioritized ??? Depression 11/14/2014 Priority: Not Prioritized ??? Obesity 11/14/2014 Priority: Not Prioritized ??? History of LEEP (loop electrosurgical excision procedure) of cervix complicating 11/14/2014 In 2004 ??? Supervision of high risk in second trimester 11/14/2014 Dating: IVF ??? History of ectopic 11/14/2014 Salpingectomy in 2009 Currently, patient presents with contractions. She was discharged around 6pm today following admission for expectant management where her contractions stopped and cervical change arrested. She was on her way home when contractions started again. She feels them every 4 minutes and declares If you don't send me to labor and delivery I swear I will have these babies right here. She indicates this is the real thing. She denies other symptoms. positive Ctx. negative LOF. negative VB. Movement positive. Review of Symptoms: Patient Denies: - Fevers, chills, malaise. - Headaches, changes in vision, dizziness. - Shortness of breath, chest pain, leg and calf pain. - RUQ pain, nausea, vomiting, diarrhea, constipation. - Dysuria, hematuria, urinary urgency, new vaginal discharge. Obstetrical History: OB History Para Term AB SAB TAB Ectopic Multiple Living 3 1 1 1 0 1 1 # Outcome Date GA Lbr Ray/2nd Weight Sex Delivery Anes PTL Lv 3 Current 2 Term 08/19/12 39w0d 3685 g (8 lb 2 oz) M Vag-Spont EPI Y 1 Ectopic 2009 Gynecologic History: Abnormal pap smears: Yes. Normal this . Cervical procedures: LEEP in 2004. STDs: No. Denies history of gonorrhea, chlamydia, trichomonas, herpes, HIV, syphilis Medical History: Past Medical History Diagnosis Date ??? History of anemia ??? 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 Nausea/vomiting in ??? Abnormal Pap smear of cervix LEEP 2004 ??? Multiple gestation Patient denies history of hypertension, diabetes, asthma or bleeding disorders. Psych History: Depression: No Anxiety: No Bipolar disorder: Yes, not currently medicated. Schizophrenia: No Suicide attempts: No Abuse: No Surgeries: Past Surgical History Procedure Laterality Date ??? Cervical leep 2009 ??? Lap salpingostomy 2009 Current Medications: Prior to Admission medications Medication Sig Start Date End Date Taking? Authorizing Provider qvovwpqven-vhnaiyygzsrhm-pddeyqsh (FIORICET) 50-325-40 MG tablet Take 1 Tab by mouth every 4 hours as needed for Headache or Migraine 03/29/15 Darío Tabor MD ferrous sulfate 325 (65 FE) MG tablet Take 1 Tab by mouth 2 times daily with morning and evening meal 03/09/15 Clara Saucedo MD acetaminophen (TYLENOL) 500 MG tablet Take 500 mg by mouth every 4 hours as needed for Fever or Pain Maximum allowable Acetaminophen amount = 4 Grams (4000 mg) / 24 hours. Anabel Heath MD ondansetron, disintegrating, (ZOFRAN ODT) 4 MG tablet Take 4 mg by mouth every 6 hours as needed for Nausea/Vomiting Allow tablet to dissolve on the tongue Anabel Heath MD Vit-Fe Fumarate-FA ( VITAMIN) 28-0.8 MG tablet Take 1 Tab by mouth once daily Anabel Heath MD Doxylamine-Pyridoxine (DICLEGIS PO) Anabel Heath MD metoclopramide (REGLAN) 10 MG tablet Take 10 mg by mouth 3 times daily before meals Anabel Heath MD Allergies: No Known Allergies Social History: Social History Smoking Status: Former Smoker Packs/Day: 0.00 Years: Quit date: 04/29/2010 Smokeless Status: Never Used Alcohol Use: No Drug Use: No Sexual Activity: Not on file Family History: Family History Problem Relation Age of Onset ??? Breast Cancer after age 50 or unknown Maternal Grandmother ??? Breast Cancer at or under age 50 Paternal Grandmother ??? Diabetes Paternal Grandfather ??? Diabetes Father No history of infants born with defects No history of family members with bleeding disorders No history of ovarian, or uterine cancer Objective: There were no vitals filed for this visit. Routine Monitoring: Patient's cervix checked and sent to labor and delivery before monitors placed. Physical Exam: General: Alert, cooperative, in significant distress during contractions, tearful. Lungs: Clear to auscultation bilaterally, good air movement, normal breathing effort. Heart: Regular rate and rhythm. Abdomen: Gravid. soft without mass, non-tender, palpable contractions. Extremities: No swelling, redness, or tenderness bilaterally. Patient has trace edema in lower extremities bilaterally. Leopolds: Not done, estimated weights below. Cervical Exam Dilation (cm): 7.5 Effacement: 100 Station: -1 (BBOW) Pelvimetry: Diagonal conjugate reached: No Ischial Spines prominent: No Suprapubic arch, narrow: No Pelvic sidewalls divergent: Yes Gynecoid pelvis: Yes Bedside Ultrasound: Deferred to L&D Current Lab Review: No results found for this visit on 03/30/15. Labs reviewed Blood type: A+ Rh status: Positive Ab screen:Negative Rubella: immune Hep B surface antigen:Negative RPR: Negative HIV:Negative GCT: 129 GBS: Negative Assessment/Plan: Miss Ortiz is a 29 y.o. @ 35w1d who presented at the [facility] with contractions. 1. Labor 1. Patient painfully maeve, contractions palpable. 2. Cervix 8/100/-1, bulging bag. 3. GBS negative, plan penicillin for prematurity. 4. Presenting twin vertex - confirm with Ultrasound on L&D 5. A+/I/-/-, HIV NR 6. Plan epidural. 2. Dichorionic/Diamniotic Twins 1. Via IVF 2. A 2144v/ B 2573b on scan 03/23/15. 3. Consented for breech extraction, section, external and internal version of second twin yesterday. Will be reconsented today. 4. Patient desires vaginal delivery. 3. History of Mild Preeclampsia 1. 24 hour urine on 03/09 374mg 2. PIH labs two days ago WNL 3. Asymptomatic at this time. 4. BPs normal currently 5. Continue to monitor blood pressures. 4. History of Bipolar Disease 1. Mood stable 2. On no meds currently. 5. FWB will be assessed on labor and delivery. 6. Disposition: Admit to labor and delivery for expectant management, plan epidural and vaginal delivery. Discussed with Dr Ellis. Анна Anand MD 03/30/2015 7:46 PM Addendum: 1. labor: cervix 8/90 BBOW. GBS Negative. Baby B presenting and vertex, Baby A breech- patient desires vaginal delivery and is consented for breech extraction and possible delivery. Expectant management now 2. PreEclampsia- BPs not persistently severe, will start magnesium if become severe. 3. Dichorionic Diamniotic IVF : Baby B (presenting) 2144grams, Baby A 2573 on 03/23, AGA and concordant growth 4. Maternal obesity Body mass index is 40.21 kg/(m^2). 5. Iron deficient anemia hgb 10.7, requiring iron transfusions this 6. H/o depression- without meds, stable Y CLERK Associated attestation - Elena Wei MD - 03/30/2015 10:06 PM ENTRY CLERK Attending Admit Note: Obstetric H and P Pt seen: 03/30/2015 10:01 PM Oanh Ortiz 35w1d I have interviewed and examined the patient, and discussed the assessment and plan of care with theresident/nurse practicioner. Available records were reviewed. I agree with the findings and plan ofcare as outlined in the resident/nurse practicioner notes, with the following addendum: Subjective: Oanh Ortiz is a 29 y.o. female at 35w1d weeks gestation by IVF. Patient reports: no bleeding, no leaking and strong contractions since being discharged. Her current obstetrical history is significant for: Depression, PreE without severe features, h/o LEEP, di/di twins by IVF, obesity. is cowart. Movement: normal. Patient Active Problem List Diagnosis Date Noted ??? Threatened labor 03/30/2015 Priority: Not Prioritized ??? Hypertension Priority: Not Prioritized ??? Hyperemesis gravidarum with electrolyte imbalance Priority: Not Prioritized ??? Hypokalemia Priority: Not Prioritized ??? Maternal iron deficiency anemia affecting , antepartum Priority: Not Prioritized ??? Encounter for suspected PROM, with rupture of membranes not found 11/15/2014 Priority: Not Prioritized ??? Dichorionic diamniotic twin 11/14/2014 Priority: Not Prioritized ??? product of IVF 11/14/2014 Priority: Not Prioritized ??? Depression 11/14/2014 Priority: Not Prioritized ??? Obesity 11/14/2014 Priority: Not Prioritized ??? History of LEEP (loop electrosurgical excision procedure) of cervix complicating 11/14/2014 In 2004 ??? Supervision of high risk in second trimester 11/14/2014 Dating: IVF ??? History of ectopic 11/14/2014 Salpingectomy in 2009 POBGHX: OB History Para Term AB SAB TAB Ectopic Multiple Living 3 1 1 1 0 1 1 # Outcome Date GA Lbr Ray/2nd Weight Sex Delivery Anes PTL Lv 3 Current 2 Term 08/19/12 39w0d 3685 g (8 lb 2 oz) M Vag-Spont EPI Y 1 Ectopic 2010 Medical History: Past Medical History Diagnosis Date ??? History of anemia ??? 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 Nausea/vomiting in ??? Abnormal Pap smear of cervix LEEP 2004 ??? Multiple gestation Surgeries: Past Surgical History Procedure Laterality Date ??? Cervical leep 2009 ??? Lap salpingostomy 2010 Curent Medications: Vitamins, iron, fioricet, zofran Allergies: NKDA Social History: History Social History ??? Marital Status: Spouse Name: N/A Number of Children: N/A ??? Years of Education: N/A Occupational History ??? Not on file. Social History Main Topics ??? Smoking status: Former Smoker Quit date: 04/29/2010 ??? Smokeless tobacco: Never Used ??? Alcohol Use: No ??? Drug Use: No ??? Sexual Activity: Not on file Other Topics Concern ??? Not on file Social History Narrative Family History: Family History Problem Relation Age of Onset ??? Breast Cancer after age 50 or unknown Maternal Grandmother ??? Breast Cancer at or under age 50 Paternal Grandmother ??? Diabetes Paternal Grandfather ??? Diabetes Father Review of Systems: Review of Systems - Negative Physical Exam: BP 148/76 mmHg Temp(Src) 98 ??F There is no weight on file to calculate BMI. General: alert, cooperative, no distress Extremities: non-tender bilaterally, 1+ edema bilaterally Abdomen: gravid heart tones: Baby A: 135 BPM. heart variability: moderate Baby B: 135 BPM. heart variability: moderate Uterine contractions 4-5 in 10 min Lab Review: Recent Labs Component Name 03/30/15200003/30/1542103/29/15 0924 WBC 12.4* 10.4 8.2 HGB 10.6* 10.7* 10.0* HCT 32.1* 33.1* 30.3* PLTCOUNT 173 164 153 Assessment: Estimated Date of Delivery: 05/03/15, 35w1d weeks gestation with di/di twins by IVF here in active labor Plan: Admit with routine orders Expectant management Vtx/breech: discussed with breech extraction vs CS. Discussed R/B. Pt desires . GBS neg CEI for pain control PreE without severe features: cont to monitor BPs: if BPs severe range or become symptomatic will start magnesium for sx ppx Monitor for PP depression Elena Wei MD documented in this encounter Consult Notes * Cas Josette, SOIL CONSERVATION AIDE - 04/01/2015 4:14 PM CSTAssociated Order(s): IP CONSULT TO CASE MANAGEMENT BRIGADIER CASE MANAGEMENT PSYCHOSOCIAL ASSESSMENT OB History Para Term AB SAB TAB Ectopic Multiple Living 3 2 1 1 1 0 1 1 3 # Outcome Date GA Lbr Ray/2nd Weight Sex Delivery Anes PTL Lv 3A 03/30/15 35w1d 2480 g (5 lb 7.5 oz) F , E EPI,Gen Y 3B 03/30/15 35w1d 2350 g (5 lb 2.9 oz) F , E EPI,Gen Y 2 Term 08/19/12 39w0d 3685 g (8 lb 2 oz) M Vag-Spont EPI Y 1 Ectopic 200904/01/2015 Marital Status: Reason for referral-hx of bipolar dx ed at 18 and then again at 25. Pt states that she has a psych, that she sees in [place] and will call him if she starts to experience signs of depression. Pt is willing to return to [facility] if needed. Pt has no history of PPD. Pt took herself off her medication, Lamictal aprox 15 mos ago. Pt and her husb stated that her mood was stable during the preg without the medication. In the past, pt has also seen a counselor which she and her husb thought wasvery helpful. Patient Active Problem List Diagnosis ??? Dichorionic diamniotic twin ??? product of IVF ??? History of LEEP (loop electrosurgical excision procedure) of cervix complicating ??? Depression ??? Obesity ??? Supervision of high risk in second trimester ??? History of ectopic ??? Encounter for suspected PROM, with rupture of membranes not found ??? Hyperemesis gravidarum with electrolyte imbalance ??? Hypokalemia ??? Maternal iron deficiency anemia affecting , antepartum ??? Hypertension ??? Threatened labor ??? Status post section Primary Diagnosis- 1. Diagnosis unknown Language Barriers-No Cultural Barriers-No Location of baby:NICU but should be dc'd soon, other twin girl is in the regular nursery Living Arrangement Prior to Admission- Home/Apartment-Yes Patient lives with: maribel and their 2 1/2 yr old son Father of baby- Is FOB involved? Yes Spouse, employed and very supportive. He has as a supportive family also. Does he want his name on the cert? Yes Does he want DNA testing? No Does he have other children to support? 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 Y CLERK documented in this encounter Nursing Notes * Le Hoffman RN - 04/03/2015 11:47 AM CST Oanh continues to breastfeed baby girl 1 then supplements with formula per order. She pumps after each feeding and brings pumped milk to baby girl 2 in NICU. She is now collecting >30ml breastmilk when she pumps after a feeding. She plans to supplement baby girl 1 until peds okay with exclusive . Diaper diary given and reviewed. Baby has had -9.2% weight loss, and has gained since supplementation started. All teaching has been done, and encouraged family to call with any questions. Le Hoffman RN, BSN, IBCLC Y CLERK * Le Hoffman RN - 04/02/2015 3:47 PM CST Oanh continues to breastfeed, pump, and supplement. She states that her baby girl 1 is latchingwell with nipple shield. She started supplementing with formula after each per delivery rep order for weight loss. She pumps after each feed and sends breastmilk to NICU to supplement baby girl 2. Discussed milk supply/maintenance and encouraged to continue latching baby first prior to supplementing. She pumps at this time and obtains about 10ml colostrum. Discussed plan at home forpumping and . Encouraged her to call as needed. Le Hoffman RN, BSN, IBCLC Y CLERK * Le King RN - 03/31/2015 9:45 PM CST Observed Oanh with baby A latched to the left breast, using a nipple shield. She denies any difficulty or discomfort with the latch. Discussed keeping a deep latch throughout the feeding. Encouraged her to pump after every feeding, for increased stimulation, since she wants to make milk for both babies. States she was never able to get her first child to latch, but pumped milk for 3 months,and she still has electric breastpump at home. Discussed characteristics of near term baby, and likelihood that she will have to continue to do some pumping to maintain her supply. She verbalizes understanding of all and denies any further questions tonight. Le King RN, MSN, IBCLC Y CLERK * Funmilayo Malik RN - 03/31/2015 5:45 PM CST consultation: Assisted mother to breast feed Baby A . Baby sleepy but latches using nipple shield for stimulation. Lots of colostrum noted in nipple shield. Baby has had frequent burst of sucking & swallowing noted & pointed out to mother. Oanh states tried to breast feed her2 1/2 yo but could not. Baby to have blood glucose test an hour after feeding. Baby Girl B remains in NICU & mother plans to use breast pump after each feeding. Encouraged to call for assistance as needed. Funmilayo Malik RNC, BSN, IBCLC Y CLERK documented in this encounter OR Notes * Operative - Primo Melendez MD - 03/30/2015 9:59 PM CST Operative Report for Section Oanh Ortiz [id number] 03/30/2015 Preoperative Diagnosis:29 y.o. Intrauterine 35w1d, non-reassuring tracing, labor, dichorionic/diamniotic twin gestation, preeclampsia without severe features Postoperative Diagnosis: same Procedure(s): Primary Section via Pfannensteil Incision Surgeon: Elena Wei MD Service Order Taker: Primo Melendez MD; Clara Saucedo MD Type of anesthesia: Epidural with Duramorph and General Complications: laceration of bregma (2cm superficial) EBL: 1400 cc IV Fluids: 1600 cc Urine OutPut: 100 cc clear yellow urine at the end of the procedure. Drains: Villegas catheter Packing/Dressing: alison pad and sterile dressing(s) applied Findings: Information for the patient's : Diana Baby Girl Oanh [[id number]] Date of 03/30/2015 Time of : 9:26 PM Sex: Female Weight: 2480 g (5 lb 7.5 oz) (1 min): 7 (5 min): 8 (10 min): Information for the patient's : Brandi Ortiz Girl Danny Hugo [[id number]] Date of 03/30/2015 Time of : 9:27 PM Sex: Female Weight: 2350 g (5 lb 2.9 oz) (1 min): 3 (5 min): 9 (10 min): Normal appearing Uterus, tubes, ovaries. Specimen(s) removed: Placenta sent to pathology The section was fully reviewed with the patient/family and written informed consent has been obtained upon admission as part of our discussion about possible modes of delivery of her twins. Risks including but not limited to, bleeding, infection, injury to surrounding organs including bowel or bladder, trauma/laceration, prolonged recovery time, injury or to patient and/or fetus had been explained. She was able to repeat back to me the budren risks from her discussion this morning, and the patient and did not have any questions. The plan had been for a trial of labor with attempted vaginal delivery of both twins. Spontaneous labor was progressing when there was FHR decelerations of both twins. The presenting twin recovered with maternal repositioning, but the non-presenting twin had deceleration to 70-80s. The uterus was palpated and found to be soft. Maternal blood pressure was normal. Without an identifiable cause to remedy, we proceeded to the operating room. We found the heart rate to still by bradycardic in the operating room, so we proceeded with delivery. General anesthesia was used due to inadequate regional coverage from the epidural likely due to the short time period it had been in place. Procedure details: The patient was taken to the operating room and was then prepared and draped in the normal sterile fashion in the dorsal supine position with a leftward tilt. Anesthesia was then confirmed to be adequate. A Pfannenstiel skin incision was made with the scalpel and carried through to the underlying layer of fascia with scalpel. The fascia was then incised in the midline and the incision extended laterally with blunt dissection. The rectus muscles were then in the midline and the peritoneum identified, and entered bluntly. The peritoneal incision was then extended superiorly and inferiorly with good visualization of the bladder. The bladder blade was then inserted and the lower uterine segment incised in a low transverse fashion with the scalpel. The uterine incision was then extended digitally. The bladder blade was removedand the presenting infants head delivered atraumatically from a cephalic presentation, JUS position. The nose and mouth were suctioned with bulb suction and the cord clamped and cut. The was handed off to the waiting [facility] delivery team. The second twin was then delivered from edgardo breech presentation with the the usual breech maneuvers for breech extraction. Cord gases were sent. The placenta was then delivered spontaneously with uterine massage. The uterus exteriorized and cleared of all clots and debris. The uterine incision was repaired with 0-vicryl, in a running locked fashion. A second layer of the same suture was used in horizontal imbricating fashion to obtain excellent hemostasis. The uterus was returned to the abdomen. The gutters were cleared of all clots. The fascia was reapproximated with 0-vicryl in a running fashion. The subcutaneous tissue was reapproximated with 2-0 plain gut suture. The skin was closed with 4-0 vicryl. The patient tolerated the procedure well. Sponge, lap, and needle counts were correct. Two grams of Ancef were given after skin incision due to the emergent nature of the procedure. The patient was taken to the recovery room in stable condition. Dr. Wei was scrubbed and present for the entire procedure. Primo Melendez MD Y CLERK Associated attestation - Elena Wei MD - 03/30/2015 10:47 PM ENTRY CLERK I agree with the resident's documentation, with the noted changes: none. I was present and scrubbedfor the entire procedure. After delivery twin A was noted to have a scalp laceration approximately 3cm in length and very superficial. Hemostatic and no need for repair or steri strips. Discussed laceration with the father as pt was under general anesthesia. Father understands and all questions answered. Elena Wei MD documented in this encounter Miscellaneous Notes * Delivery Summary - Xuan Billy RN - 03/31/2015 12:31 AM CST DELIVERY SUMMARY Mother's Post Delivery /Para: OB History Para Term AB TAB SAB Ectopic Multiple Living 3 2 1 1 1 0 1 1 3 Estimated Date of Delivery: 05/03/15 Temp (48hrs) Max:98.5 ??F Estimated Blood Loss 03/30/20152124 - 03/31/2015 0031 Mom's I/O Activity Estimated Blood Loss Anesthesia 1400 mL Total 1400 Mother's Information Patient Information Patient Name Sex Oanh Ortiz ([id number]) Female 1985 OB History Para Term AB SAB TAB Ectopic Multiple Living 3 2 1 1 1 0 1 1 3 # Outcome Date GA Labor/2nd Weight Sex Delivery Anes PTL Lv Name A1 A5 Location 3A 03/30/15 35w1d 2480 g (5 lb 7.5 oz) F , E Epidural,General Y [address] [facility] 3B 03/30/15 35w1d 2350 g (5 lb 2.9 oz) F , E Epidural,General Y [address] [facility] 2 Term 08/19/12 39w0d 3685 g (8 lb 2 oz) M Vag-Spont Epidural Y [facility] 1 Ectopic 2009 Transcribed Labs 03/30/15 0428 03/30/15 0417 RH (Manually Reproduced) Positive Blood Type (Manually Reproduced) A Syphilis Serology (Manually Reproduced) Negative HIV (Manually Reproduced) Negative Hepatitis B Surface Antigen (Manually Reproduced) Negative Hepatitis C (Manually Reproduced) Negative Rubella Status ( Manually Reproduced) Immune Beta Strep Culture (Manually Reproduced) Negative POCT Venous Cord Blood Gas Results (Last 2 results in the past 4 days) pH pCO2 pO2 HCO3 BE Total CO2 O2 sat (calc) 03/30/15 2143 7.16(L) 62(H) 12(L) 22 -8(L) 24 8 POCT Arterial Cord Blood Gases (Last 2 results in the past 4 days) pH pCO2 pO2 HCO3 BE Total CO2 O2 sat (calc) 03/30/15 2138 7.09(L) 75.9(HH) 7(L) 22.9 -9(L) 25 4 Diana Baby Girl Oanh [[id number]] Patient Information Patient Name Sex Brandi Ortiz ([id number]) Female 03/30/2015 Procedures No data filed Group Beta Strep Status/Number of Antibiotic Doses GBS Status: Negative Antibiotic: None Number of Antibiotic Doses: 0 Membranes/Fluid Membrane Status: Bulging Rupture Date: 03/30/15 Rupture Time: 9:26 PM Fluid Description: Clear Anesthesia/Analgesia Anesthesia/Analgesia: Epidural, General Intrapartum Events Induction Method: None Conditions: None Labor and Delivery Complications: Non-Reassuring Heart Rate Pattern Section Decision Time of Decision for Section: 9:19 PM Indications: Non-reassuring status, Presentation Categorization: Primary Priority: Emergency Prior Uterine Surgery ( Core Measure PC01): Classical (vertical incision into upper uterine segment) Counts by Panel Panel 1 Type Which? Correct? X-Ray? MD Notif? Counted By Verified By [place]/Sponges Closure of a Cavity within a Cavity Yes No Yes Eliazar Austin Madonna I., RN Instruments/[place]/Sponges Initial / Baseline Yes No Yes Eliazar Austin Germaine C, RN performed at 2119 Instruments/[place]/Sponges Beginning of Wound Closure Yes No Yes Eliazar Austin MadonnaI., RN [place]/Sponges Skin Closure / End of Procedure Yes No Yes Eliazar Austin Madonna I., RN performed at 2157 Delivery Type/ Presentation Delivery Type: , Emergent Presentation: Vertex Placenta Date and time: 03/30/2015 9:27 PM Appearance/Removal/Tests: Intact, Abnormal, Spontaneous, Expressed, Sent to Pathology Delivery Outcome Live ?: Yes Baby Vital Statistics Date: 03/30/15 Time: 2125 Weight: 2480 g Length: 19.09 Head Circum.: 12.99 1 Minute 1 Minute: Skin Color: 0 Grimace: 2 Breathin Heart Rate: 2 Muscle Tone: 1 Total: 7 5 Minute 5 Minute: Skin Color: 1 Grimace: 2 Breathin Heart Rate: 2 Muscle Tone: 1 Total: 8 [place] Stabilization Equipment Checked by: Tati De Paz MD Vigorous at ? (Heart rate greater than 100, normal respirations and normal muscle tone): Yes Suction Method: Bulb Secretions (Amount in Comment): Clear, Thick Requires more than warming, stimulation, and suction?: No Intubation Procedure: Thermoregulation Support: Cap, Overhead Warmer, Warm Blankets Description of Baby: Cord/Gases Vessels: 3 Vessels Complications: None Gases Sent: Yes, Venous, Arterial [place] Feeding/Elimination Mother's Feeding Choice for this Stay: Human Milk and Formula Voided in Delivery Room?: Yes Stooled in Delivery Room?: No Delivering Clinician No data filed Specifics Length Weight HC Gestational Age Delivery Method 19.09 (48.5 cm) 2480 g (5 lb 7.5 oz) 12.99 (33 cm) 35 1/7 weeks , Emergent 1 minute 5 minutes 7 8 Diana Baby Girl Danny Hugo [[id number]] Patient Information Patient Name Sex Brandi Ortiz 2 Oanh ([id number]) Female 03/30/2015 Procedures No data filed Group Beta Strep Status/Number of Antibiotic Doses GBS Status: Negative Antibiotic: None Number of Antibiotic Doses: 0 Membranes/Fluid Membrane Status: Bulging Rupture Date: 03/30/15 Rupture Time: 9:27 PM Fluid Description: Clear Anesthesia/Analgesia Anesthesia/Analgesia: Epidural, General Intrapartum Events Induction Method: None Conditions: None Labor and Delivery Complications: Non-Reassuring Heart Rate Pattern Section Decision Time of Decision for Section: 9:19 PM Indications: Non-reassuring status Categorization: Primary Priority: Emergency Prior Uterine Surgery ( Core Measure PC01): Classical (vertical incision into upper uterine segment) Counts by Panel Panel 1 Type Which? Correct? X-Ray? Notif? Counted By Verified By [place]/Sharps/Sponges Closure of a Cavity within a Cavity Yes No Yes Eliazar Austin Madonna I., RN Instruments/[place]/Sharps/Sponges Initial / Baseline Yes No Yes Eliazar Austin Germaine C, RN performed at 2120 Instruments/[place]/Sharps/Sponges Beginning of Wound Closure Yes No Yes Eliazar Austin MadonnaI., RN [place]/Sharps/Sponges Skin Closure / End of Procedure Yes No Yes Eliazar Austin Madonna I., RN performed at 2157 Delivery Type/ Presentation Delivery Type: , Emergent Presentation: Breech Placenta Date and time: 03/30/2015 9:27 PM Appearance/Removal/Tests: Intact, Abnormal, Spontaneous, Expressed, Sent to Pathology Delivery Outcome Live ?: Yes Baby Vital Statistics Date: 03/30/15 Time: 2126 Weight: 2350 g Length: 18.5 Head Circum.: 13.39 1 Minute 1 Minute: Skin Color: 0 Grimace: 1 Breathin Heart Rate: 2 Muscle Tone: 0 Total: 3 5 Minute 5 Minute: Skin Color: 1 Grimace: 2 Breathin Heart Rate: 2 Muscle Tone: 2 Total: 9 [place] Stabilization Equipment Checked by: chris Vigorous at ? (Heart rate greater than 100, normal respirations and normal muscle tone): No Suction Method: Bulb Secretions (Amount in Comment): Clear, Thin Airway Support: CPAP, Positive Pressure Ventilation Intubation Procedure: Thermoregulation Support: Cap, Overhead Warmer, Warm Blankets Description of Baby: Cord/Gases Vessels: 3 Vessels Complications: None Gases Sent: Yes, Venous, Arterial Feeding/Elimination Mother's Feeding Choice for this Stay: Human Milk Voided in Delivery Room?: No Stooled in Delivery Room?: No Delivering Clinician No data filed Specifics Length Weight HC Gestational Age Delivery Method 18.5 (47 cm) 2350 g (5 lb 2.9 oz) 13.39 (34 cm) 35 1/7 weeks , Emergent 1 minute 5 minutes 3 9 Y CLERK documented in this encounter Plan of Treatment Not on file documented as of this encounter Procedures Procedure Name Priority Date/Time Associated Diagnosis Comments LAB RESULTS ORDER 04/04/2015 9:5 6 AM ENTRY CLERK HGB HCT PANEL AM Draw 03/31/2015 5:19 AM ENTRY CLERK PATHOLOGY TISSUE EXAM (STL) Routine 03/30/2015 9:52 PM ENTRY CLERK Diagnosis unknown BLOOD GASES CORD KASEY (ISTAT) Routine 03/30/2015 9:51 PM ENTRY CLERK BLOOD GASES CORD ART (ISTAT) Routine 03/30/2015 9:47 PM ENTRY CLERK BLOOD GASES CORD KASEY (ISTAT) Routine 03/30/2015 9:43 PM ENTRY CLERK BLOOD GASES CORD ART (ISTAT) Routine 03/30/2015 9:38 PM ENTRY CLERK CBC W AUTO DIFFERENTIAL STAT 03/30/2015 8:01 PM ENTRY CLERK SECTION (EMERGENCY) Case Notes documented in this encounter Results * LAB RESULTS ORDER (04/04/2015 9:56 AM ENTRY CLERK) Narrative 04/04/2015 9:56 AM ENTRY CLERK Ordered by an unspecified provider. Scanned Document LAB - THERAPEUTIC DR BERMUDEZ MONITORING ORDERABLES * (ABNORMAL) HGB HCT PANEL (03/31/2015 5:19 AM ENTRY CLERK) Hemoglobin 7.7(L) 12.0 - 15.6 gm/dL 03/31/2015 6:03 AM ENTRY CLERK [facility] Hematocrit 23.4(L) 35.9 - 45.5 % 03/31/2015 6:03 AM ENTRY CLERK [facility] Blood BLOOD SPECIMEN / Unknown Lab Venipuncture / Unknown 03/31/2015 5:19 AM ENTRY CLERK 03/31/2015 5:49 AM ENTRY CLERK Primo Melendez MD LAB - HEMATOLOGY ORD ERABLES [facility] [address] [place] [address] * GROSS + MICRO EXAM (STL) (03/30/2015 9:52 PM ENTRY CLERK) Case Report Surgical Pathology Report ? Case: [id number] ? Authorizing Provider: ??Elena Wei MD ?Collected: ? 03/30/2015 09:52 PM ? Ordering Location: ? [facility] LDR ? Received: ?03/31/2015 07:54 AM ? Pathologist: ? Arlen Newell MD ? Specimen: ?Placenta 3rd Trimester ? 04/04/2015 3:23 PM ENTRY CLERK [facility] Final Diagnosis 1. Twin placenta: -- Dichorionic, diamniotic twin placenta 2. Placenta A with one cord clamp: -- Third trimester placenta, 640 grams -- Three-vessel umbilical cord with no pathologic diagnosis -- Chorioamniotic membranes with no pathologic diagnosis 3. Placenta B with two cord clamps: -- Three-vessel umbilical cord with no pathologic diagnosis -- Acute chorioamnionitis, mild MM/kaylee 04/04/2015 3:23 PM [facility] Clinical History Preeclampsia without severe features, twin gestation. 04/04/2015 3:23 PM ENTRY CLERK [facility] Gross Description Received in formalin in a container labeled Oanh Ortiz, placenta . The container holds a partially fused [...] are no lesions or masses grossly identified. Hooker Laster sections are submitted as follows: A1 - Membranes and umbilical cord placenta A A2 - surface placenta A A3 - Maternal surface placenta A A4 - Membranes and umbilical cord placenta B A5 - and maternal surface placenta B A6 - Maternal surface placenta B DYT/kunal 04/04/2015 3:23 PM ENTRY CLERK [facility] Microscopic Description Sections of the placenta reveal a dichorionic, diamniotic twin placenta. Both placentas have three-vessel umbilical cords with no evidence of funisitis or thrombosis. The chorioamniotic membranes on placenta A show no evidence of acute inflammation, however, placenta B has mild, acute inflammation. The chorionic villi are small, well-vascularized and mature with no evidence of villitis or infarction. ANA/kaylee 04/04/2015 3:23 PM ENTRY CLERK [facility] Pathology/Cytolo gy ENTIRE PLACENTA / Unknown 03/30/2015 9:52 PM ENTRY CLERK 03/31/2015 7:54 AM ENTRY CLERK Elena Wei MD LAB - PATHOLOGY/CYTO LOGY ORDERABLES Performing Organization Address [facility] Co de Phone Number [facility] [address] [place], [place] [id number] * (ABNORMAL) BLOOD GASES CORD KASEY (ISTAT) (03/30/2015 9:51 PM ENTRY CLERK) pH Cord Venous POCT 7.30 7.28 - 7.40 pH 03/31/2015 5:57 AM ENTRY CLERK [facility] pCO2 Cord Venous POCT 48(H) 35 - 45 mmHg 03/31/2015 5:57 AM ENTRY CLERK [facility] pO2 Cord Venous POCT 26 22 - 33 mmHg 03/31/2015 5:57 AM ENTRY CLERK [facility] HCO3 Cord Arterial POCT 24 22 - 24 mmol/L 03/31/2015 5:57 AM ENTRY CLERK [facility] BE Cord Venous POCT Calc -3 -6 - 2 mmol/L 03/31/2015 5:57 AM ENTRY CLERK [facility] TCO2 Cord Venous POCT 25 22 - 30 mmol/L 03/31/2015 5:57 AM ENTRY CLERK [facility] O2 Saturation % Cord Venous Calc POCT 40 % 03/31/2015 5:57 AM ENTRY CLERK [facility] Site CORD KASEY 03/31/2015 5:57 AM ENTRY CLERK [facility] Sample iSTAT CORD V 03/31/2015 5:57 AM ENTRY CLERK [facility] Blood CORD BLOOD SPECIMEN / Unknown 03/30/2015 9:51 PM ENTRY CLERK 03/31/2015 5:52 AM ENTRY CLERK Narrative [facility] - 03/31/2015 5:57 AM ENTRY CLERK Twin A Jose Antonio Perez MD LAB - POINT OF CARE ORDERABLES [facility] [address] [place] [id number] * (ABNORMAL) BLOOD GASES CORD ART (ISTAT) (03/30/2015 9:47 PM ENTRY CLERK) pH Cord Arterial POCT 7.22 7.20 - 7.34 pH 03/31/2015 5:58 AM ENTRY CLERK [facility] pCO2 Cord Arterial POCT 59.6(H) 45 - 55 mmHg 03/31/2015 5:58 AM [facility] pO2 Cord Arterial POCT 21 12 - 25 mmHg 03/31/2015 5:58 AM [facility] HCO3 Cord Arterial POCT 24.1 15 - 29 mmol/L 03/31/2015 5:58 AM [facility] BE Cord Arterial POCT -5(L) -2.9 - 8.3 mmol/L 03/31/2015 5:58 AM [facility] TCO2 Cord Arterial POCT 26 mmol/L 03/31/2015 5:58 AM [facility] O2 Saturation Cord Art % Calc POCT 25 % 03/31/2015 5:58 AM [facility] Site CORD ART 03/31/2015 5:58 AM [facility] Sample iSTAT CORD A 03/31/2015 5:58 AM [facility] Blood CORD BLOOD SPECIMEN / Unknown 03/30/2015 9:47 PM ENTRY CLERK 03/31/2015 5:51 AM ENTRY CLERK Narrative [facility] - 03/31/2015 5:58 AM ENTRY CLERK Twin A Jose Antonio Perez MD LAB - POINT OF CARE ORDERABLES Performing Organization Address City/State/[facility] Co de Phone Number [facility] [address] [place] [address] * (ABNORMAL) BLOOD GASES CORD KASEY (ISTAT) (03/30/2015 9:43 PM ENTRY CLERK) pH Cord Venous POCT 7.16(L) 7.28 - 7.40 pH 03/30/2015 10:27 PM [facility] pCO2 Cord Venous POCT 62(H) 35 - 45 mmHg 03/30/2015 10:27 PM [facility] pO2 Cord Venous POCT 12(L) 22 - 33 mmHg 03/30/2015 10:27 PM [facility] HCO3 Cord Arterial POCT 22 22 - 24 mmol/L 03/30/2015 10:27 PM [facility] BE Cord Venous POCT Calc -8(L) -6 - 2 mmol/L 03/30/2015 10:27 PM [facility] TCO2 Cord Venous POCT 24 22 - 30 mmol/L 03/30/2015 10:27 PM [facility] O2 Saturation % Cord Venous Calc POCT 8 % 03/30/2015 10:27 PM [facility] Site CORD KASEY 03/30/2015 10:27 PM [facility] Sample iSTAT CORD V 03/30/2015 10:27 PM [facility] Blood CORD BLOOD SPECIMEN / Unknown 03/30/2015 9:43 PM ENTRY CLERK 03/30/2015 10:27 PM ENTRY CLERK Jose Antonio Perez MD LAB - POINT OF CARE ORDERABLES [facility] [address] [place] [address] * (ABNORMAL) BLOOD GASES CORD ART (ISTAT) (03/30/2015 9:38 PM ENTRY CLERK) pH Cord Arterial POCT 7.09(L) 7.20 - 7.34 pH 03/30/2015 10:27 PM [facility] pCO2 Cord Arterial POCT 75.9(HH) 45 - 55 mmHg 03/30/2015 10:27 PM [facility] pO2 Cord Arterial POCT 7(L) 12 - 25 mmHg 03/30/2015 10:27 PM [facility] HCO3 Cord Arterial POCT 22.9 15 - 29 mmol/L 03/30/2015 10:27 PM [facility] BE Cord Arterial POCT -9(L) -2.9 - 8.3 mmol/L 03/30/2015 10:27 PM [facility] TCO2 Cord Arterial POCT 25 mmol/L 03/30/2015 10:27 PM [facility] O2 Saturation Cord Art % Calc POCT 4 % 03/30/2015 10:27 PM [facility] Site CORD ART 03/30/2015 10:27 PM [facility] Sample iSTAT CORD A 03/30/2015 10:27 PM [facility] Blood CORD BLOOD SPECIMEN / Unknown 03/30/2015 9:38 PM ENTRY CLERK 03/30/2015 10:27 PM ENTRY CLERK Jose Antonio Perez MD LAB - POINT OF CARE ORDERABLES [facility] [address] [place] [address] * (ABNORMAL) CBC W AUTO DIFFERENTIAL (03/30/2015 8:01 PM [facility]) [facility] Signature WBC 12.4(H) 4.4 - 10.7 x10^9/L 03/30/2015 8:10 PM [facility] WBC Corrected x10^9/L 03/30/2015 8:10 PM [facility] RBC 3.99 3.80 - 5.20 x10^12/L 03/30/2015 8:10 PM [facility] Hemoglobin 10.6(L) 12.0 - 15.6 gm/dL 03/30/2015 8:10 PM [facility] Hematocrit 32.1(L) 35.9 - 45.5 % 03/30/2015 8:10 PM [facility] MCV 80.5(L) 80.7 - 98.3 fl 03/30/2015 8:10 PM [facility] MCH 26.6(L) 26.7 - 34.0 pg 03/30/2015 8:10 PM [facility] MCHC 33.0 30.8 - 35.9 gm/dL 03/30/2015 8:10 PM [facility] Platelet Count 173 153 - 416 x10^9/L 03/30/2015 8:10 PM [facility] RDW-CV 18.0(H) 12.1 - 14.9 % 03/30/2015 8:10 PM [facility] MPV 11.3 9.4 - 12.9 fl 03/30/2015 8:10 PM [facility] Neutrophils % 78.7(H) 44.0 - 73.0 % 03/30/2015 8:10 PM [facility] Lymphocytes % 13.9(L) 20.0 - 43.0 % 03/30/2015 8:10 PM [facility] Monocytes % 6.9 5.0 - 13.0 % 03/30/2015 8:10 PM [facility] Eosinophils % 0.1 0.0 - 6.0 % 03/30/2015 8:10 PM [facility] Basophils % 0.1 0.0 - 2.0 % 03/30/2015 8:10 PM [facility] Immature Granulocytes 0.3 0 - 1 % 03/30/2015 8:10 PM ENTRY CLERK [facility] Neutrophil Absolute 9.74(H) 2.01 - 7.14 x10^9/L 03/30/2015 8:10 PM ENTRY CLERK [facility] Lymphocytes Absolute 1.72 1.07 - 3.94 x10^9/L 03/30/2015 8:10 PM ENTRY CLERK [facility] Monocytes Absolute 0.86 0.26 - 1.07 x10^9/L 03/30/2015 8:10 PM ENTRY CLERK [facility] Eosinophils Absolute 0.01 0 - 0.47 x10^9/L 03/30/2015 8:10 PM ENTRY CLERK [facility] Basophils Absolute 0.01 0 - 0.08 x10^9/L 03/30/2015 8:10 PM [facility] Immature Granulocytes Absolute 0.04 0.00 - 0.06 x10^9/L 03/30/2015 8:10 PM [facility] Blood BLOOD SPECIMEN / Unknown Venipuncture / Unknown 03/30/2015 8:01 PM ENTRY CLERK 03/30/2015 8:05 PM ENTRY CLERK Jose Antonio Perez MD LAB - HEMATOLOGY ORD ERABLES Performing Organization Address City/State/[facility] Co de Phone Number [facility] [address] [place] [address] documented in this encounter Visit Diagnoses Diagnosis Diagnosis unknown Other unknown and unspecified cause of morbidity or mortality Status post section Other postprocedural status documented in this encounter Administered Medications Inactive Administered Medications - up to 3 most recent administrations Medication Order MAR Action Action Date Dose Rate Site ceFAZolin 2 g (ANCEF) IVPB 2 g 2 g, at 100 mL/hr, Intravenous, EVERY 8 HOURS, 3 doses, First dose on Aurea 03/31/15 at 0530, Last dose on Aurea 03/31/15 at 2130 $ Given 03/31/2015 9:17 PM ENTRY CLERK 2 g 100 mL/hr $ Given 03/31/2015 1:25 PM ENTRY CLERK 2 g 100 mL/hr $ Given 03/31/2015 5:06 AM ENTRY CLERK 2 g 100 mL/hr dextrose 5% and lactated ringers infusion at 125 mL/hr, Intravenous, CONTINUOUS, Starting on Aurea 03/31/15 at 0200, Until 04/03/15 at 1718, May discontinue IV when taking PO and afebrile., $ New Bag/Syringe 03/31/2015 1:58 AM ENTRY CLERK 125 mL/hr 125 mL/hr docusate sodium (COLACE) capsule 100 mg 100 mg, Oral, 2 TIMES DAILY, First dose on Aurea 03/31/15 at 0200, Until Discontinued, $ Given 04/03/2015 10:35 AM ENTRY CLERK 100 mg $ Given 04/02/2015 9:23 PM ENTRY CLERK 100 mg $ Given 04/02/2015 7:56 AM ENTRY CLERK 100 mg enoxaparin (LOVENOX) injection 40 mg 40 mg, Subcutaneous, DAILY AT 1000, First dose on Aurea 03/31/15 at 1000, Until Discontinued, (for prefilled syringes) do not expel air bubble from the syringe prior to the injection Remind Patient to not rub injection site. Could cause hematoma., $ Given 04/03/2015 10:35 AM ENTRY CLERK 40 mg Abdominal Tissue $ Given 04/02/2015 9:54 AM ENTRY CLERK 40 mg Ab dominal Tissue $ Given 04/01/2015 11:41 AM ENTRY CLERK 40 mg A bdominal Tissue ibuprofen (MOTRIN) tablet 600 mg 600 mg, Oral, EVERY 6 HOURS, First dose on Aurea 03/31/15 at 0200, Until Discontinued, Maximum allowable amount = 3200 mg / 24 hours., $ Given 04/03/2015 12:10 PM ENTRY CLERK 600 mg $ Given 04/03/2015 6:24 AM ENTRY CLERK 600 mg $ Given 04/02/2015 11:57 PM ENTRY CLERK 600 mg iron polysaccharides (NIFEREX 150) capsule 150 mg 150 mg, Oral, DAILY, First dose on Aurea 03/31/15 at 0900, Until Discontinued, $ Given 04/01/2015 9:07 AM ENTRY CLERK 150 mg iron polysaccharides (NIFEREX 150) capsule 150 mg 150 mg, Oral, 2 TIMES DAILY WITH MEALS, First dose (after last modification) on Sat04/01/15 at 1800, Until Discontinued, $ Given 04/03/2015 10:35 AM ENTRY CLERK 150 mg $ Given 04/02/2015 6:24 PM ENTRY CLERK 150 mg $ Given 04/02/2015 7:56 AM ENTRY CLERK 150 mg iron sucrose (VENOFER) injection 200 mg 200 mg, Intravenous, DAILY, 3 doses, First dose on Aurea 03/31/15 at 1000, Last dose on 04/02/15 at 0900, May administer up to 200 mg of undiluted solution IVP slowly over 5 minutes. Doses greater than 200 mg must be diluted to an appropriate volume and administered as an infusion. $ Given 03/31/2015 10:22 AM ENTRY CLERK 200 mg ketorolac (TORADOL) injection 30 mg 30 mg, Intravenous, EVERY 6 HOURS, 4 doses, First dose on Sat03/30/15 at 2230, Last dose on Sat03/31/15 at 1900, For Pain - If not given intra-op. PRN if not administered in the OR. $ Given 03/31/2015 8:15 PM ENTRY CLERK 30 mg $ Given 03/31/2015 1:25 PM ENTRY CLERK 30 mg $ Given 03/31/2015 6:44 AM ENTRY CLERK 30 mg lanolin (LANOLIN) ointment Topical, PRN, Sore or cracked nipples., Starting on Sat03/31/15 at 0148, Until [place] 04/03/15 at 1718, Apply purified Lanolin to sore or cracked nipples, if needed. May keep at bedside., $ Given 04/02/2015 7:56 AM ENTRY CLERK morphine injection 2 mg 2 mg, Intravenous, EVERY 1 HOUR PRN, Moderate Pain, Starting on Sat03/30/15 at 2142, Until 04/03/15 at 1718 $ Given 03/31/2015 4:22 AM ENTRY CLERK 2 mg oxyCODONE-acetaminophen (PERCOCET) 5-325 MG tablet 1-2 Tab 1-2 tablet, Oral, EVERY 4 HOURS PRN, Moderate Pain, Severe Pain, Starting on Sat03/30/15 at 2309, Until 04/03/15 at 1718, Maximum allowable Acetaminophen amount = 4 Grams (4000 mg) / 24 hours., $ Given 04/03/2015 6:33 AM ENTRY CLERK 1 tablet $ Given 04/02/2015 11:58 PM ENTRY CLERK 1 tablet $ Given 04/02/2015 4:59 PM ENTRY CLERK 1 tablet vitamin with iron tablet 1 Tab 1 tablet, Oral, DAILY, First dose on Aurea 03/31/15 at 0900, Until Discontinued, $ Given 04/03/2015 10:35 AM ENTRY CLERK 1 tablet $ Given 04/02/2015 7:56 AM ENTRY CLERK 1 tablet $ Given 04/01/2015 9:06 AM ENTRY CLERK 1 tablet simethicone (MYLICON) chew tablet 160 mg 160 mg, Oral, QID PRN (after meals and at bedtime), Gas Pain, Starting on Aurea 03/31/15 at 0148, Until 04/03/15 at 1718, $ Given 04/01/2015 4:03 PM ENTRY CLERK 160 mg $ Given 04/01/2015 12:07 AM ENTRY CLERK 160 mg documented in this encounter Active and Recently Administered Medications Times are shown in ENTRY CLERK. Scheduled Medication Order 04/01/2015 04/02/2015 04/03/2015 docusate sodium (COLACE) capsule 100 mg 100 mg, Oral, 2 TIMES DAILY, First dose on Aurea 03/31/15 at 0200, Until Discontinued, 0900 ($ Given - Provider: Vivian Lynch RN)2015 ($ Given - Provider: Brooke Brown, RIYA) 0756 ($ Given - Provider: Nitza Bliss RN)2123 ($ Given - Provider: Yady Jones RN) 1035 ($ Given - Provider: Nitza Bliss RN) enoxaparin (LOVENOX) injection 40 mg (CANCELED) 40 mg, Subcutaneous, DAILY AT 1000, First dose on Aurea 03/31/15 at 1000, Until Discontinued, (for prefilled syringes) do not expel air bubble from the syringe prior to the injection Remind Patient to not rub injection site. Could cause hematoma., 0907 (Not Administered - Provider: Vivian Lynch RN - Reason: See Comments - Comment: Will clarify with )1141 ($ Given - Provider: Vivian Lynch RN) 0954 ($ Given - Provider: Nitza Bliss RN) 1035 ($ Given - Provider: Nitza Bliss RN) ibuprofen (MOTRIN) tablet 600 mg 600 mg, Oral, EVERY 6 HOURS, First dose on Aurea 03/31/15 at 0200, Until Discontinued, Maximum allowable amount = 3200 mg / 24 hours., 0203 ($ Given - Provider: Jennifer Meza RN)0906 ($ Given - Provider: Vivian Lynch RN)1559 ($ Given - Provider: Vivian Lynch RN)2240 ($ Given - Provider: Brooke Brown, RIYA) 0538 ($ Given - Provider: Brooke Brown, RN)1245 ($ Given - Provider: Nitza Bliss RN)1824 ($ Given - Provider: Nitza Bliss RN)2000 (Not Administered - Provider: Yady Jones RN - Reason: Per Administration Instructions)2357 ($ Given - Provider: Yady Jones RN) 0624 ($ Given - Provider: Yady Jones, RN)1210 ($ Given - Provider: Nitza Bliss, RIYA) iron polysaccharides (NIFEREX 150) capsule 150 mg (CANCELED) 150 mg, Oral, DAILY, First dose on Sat03/31/15 at 0900, Until Discontinued, 0907 ($ Given - Provider: Vivian Lynch RN) iron polysaccharides (NIFEREX 150) capsule 150 mg (CANCELED) 150 mg, Oral, 2 TIMES DAILY WITH MEALS, First dose (after last modification) on Sat04/01/15 at 1800, Until Discontinued, 1902 ($ Given - Provider: Vivian Lynch RN) 0756 ($ Given - Provider: Nitza Bliss RN)1824 ($ Given - Provider: Nitza Bliss RN) 1035 ($ Given - Provider: Nitza Bliss, RIYA) vitamin with iron tablet 1 Tab (CANCELED) 1 tablet, Oral, DAILY, First dose on Sat03/31/15 at 0900, Until Discontinued, 0906 ($ Given - Provider: Vivian Lynch RN) 0756 ($ Given - Provider: Nitza Bliss RN) 1035 ($ Given - Provider: Nitza Bliss, RIYA) PRN Medication Order 04/01/2015 04/02/2015 04/03/2015 lanolin (LANOLIN) ointment Topical, PRN, Sore or cracked nipples., Starting on Aurea 03/31/15 at 0148, Until 04/03/15 at 1718, Apply purified Lanolin to sore or cracked nipples, if needed. May keep at bedside., 0756 ($ Given - Provider: Nitza Bliss, RIYA) oxyCODONE-acetaminophen (PERCOCET) 5-325 MG tablet 1-2 Tab 1-2 tablet, Oral, EVERY 4 HOURS PRN, Moderate Pain, Severe Pain, Starting on 03/30/15 at 2309, Until 04/03/15 at 1718, Maximum allowable Acetaminophen amount = 4 Grams (4000 mg) / 24 hours., 0007 ($ Given - Provider: Jennifer Meza RN)0516 ($ Given - Provider: Jennifer Meza RN)1036 ($ Given - Provider: Vivian Lynch, RN)1638 ($ Given - Provider: Vivian Lynch, RN) 0234 ($ Given - Provider: Brooke Brown RN)0756 ($ Given - Provider: Nitza lBiss, RIYA)1659 ($ Given - Provider: Nitza Bliss, RIYA)2358 ($ Given - Provider: Yady Jones RN) 0633 ($ Given - Provider: Yady Jones RN) simethicone (MYLICON) chew tablet 160 mg (CANCELED) 160 mg, Oral, QID PRN (after meals and at bedtime), Gas Pain, Starting on Aurea 03/31/15 at 0148, Until 04/03/15 at 1718, 0007 ($ Given - Provider: Jennifer Meza RN)1603 ($ Given - Provider: Vivian Lynch, RIYA) documented in this encounter Care Teams Emery Grinder Relationship Specialty Start Date End Date Steve Davis MD [address] [facility] [address] [address] [place] [address] PCP - General Family Medicine 03/30/15 documented as of this encounter
--- OUTSIDE RECORDS SUMMARY | 2024-04-29 22:42 | XMS_ITS | Referral Summary ---
Author Organization [facility] Address [address] [place] [address] [place] [address] Care Team Providers Care Call Or Contact Centre Team Leader Name Role Phone Steve Davis MD Primary Care Provider [phone] Source Comments [facility],non-owned Affiliates and Associated Physician Practices is amultiple site organization consisting of ambulatory clinics and hospital sitesin [place], [place], [place]. This disclosure is being madepursuant to the Care Everywhere program and may not contain all information available regarding this patient. Last updated 18.[facility] Allergies No known active allergies Medications * Be aware that medications may not be up to date on this document. Alwaysverify current medications with the patient. Medication Sig Dispensed Refills Start Date End Date Status Vit-Fe Fumarate-FA ( VITAMIN) 28-0.8 MG tablet Take 1 Tab by mouth once daily Active acetaminophen (TYLENOL) 500 MG tablet Take 500 mg by mouth every 4 hours as needed for Fever or Pain Maximum allowable Acetaminophen amount = 4 Grams (4000 mg) / 24 hours. Active ferrous sulfate 325 (65 FE) MG tablet Take 1 Tab by mouth 2 times daily with morning and evening meal 60 Tab 2 03/09/2015 Active butalbital-acetamin ophen-caffeine (FIORICET) 50-325-40 MG tablet Take 1 Tab by mouth every 4 hours as needed for Headache or Migraine 20 Tab 0 03/29/2015 Active oxyCODONE-acetamino phen (PERCOCET) 5-325 MG tablet Take 1 Tab by mouth every 4 hours as needed 50 Tab 0 04/03/2015 Active ibuprofen (MOTRIN) 600 MG tablet Take 1 Tab by mouth every 6 hours as needed for Pain 60 Tab 0 04/03/2015 Active docusate sodium (COLACE) 100 MG capsule Take 1 Cap by mouth 2 times daily 60 Cap 0 04/03/2015 Active lanolin (LANOLIN) ointment Apply to affected area as needed (Sore or cracked nipples.) 40 g 0 04/03/2015 Active ferrous sulfate 325 (65 FE) MG tablet Take 1 Tab by mouth 2 times daily with morning and evening meal 60 Tab 0 04/03/2015 Active Active Problems Problem Noted Date Diagnosed Date Threatened labor 03/30/2015 Encounter for suspected PROM , with rupture of membranes not found 11/15/2014 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 History of LEEP (loop electr osurgical excision procedure) of cervix complicating 11/14/2014 Overview (11/14/2014): In 2005 Depression 11/14/2014 Obesity 11/14/2014 Supervision of high risk in [facility] 11/14/2014 Overview (11/14/2014): Dating: IVF History of ectopic 11/14/2014 Overview (11/14/2014): Salpingectomy in 2009 Hyperemesis gravidarum with electrolyte imbalanc e Hypokalemia Maternal iron deficiency ane ryan affecting , antepartum Hypertension Status post section Immunizations Name Administration Dates Next Due INFLUENZA 12/28/2014 TDAP (7yrs+) 12/28/2014 Social History Tobacco Use Types Packs/Day Years [...] Comments Blood Pressure 112/70 05/05/2015 1:44 PM SELLING MANAGER Pulse 76 05/05/2015 1:44 PM SELLING MANAGER Temperature 36.7 ??C (98.1 ??F) 04/03/2015 8:00 AM CS T Respiratory Rate 16 05/05/2015 1:44 PM SELLING MANAGER Oxygen Saturation 96% 03/31/2015 3:07 AM SELLING MANAGER Inhaled Oxygen Concentration - - Weight 91.6 kg (202 lb) 05/05/2015 1:44 PM SELLING MANAGER Height 167.6 cm (5' 6 ) 05/05/2015 1:44 PM SELLING MANAGER Body Mass Index 32.6 05/05/2015 1:44 PM SELLING MANAGER Functional Status Functional Status Response Date of [...] person have difficulty concentrating/remembering/making decisions? No 03/30/2015 Plan of Treatment Not on file Procedures Procedure Name Priority Date/Time Associated Diagnosis Comments HIV-1 HIV-2 ANTIBODIES W RFLX REFLEXED Routine 04/29/1998 12:00 AM SELLING MANAGER from Last 3 Months or Most Recently Relevant to Health Maintenance Results * HIV-1 HIV-2 ANTIBODIES W RFLX REFLEXED (04/29/1998 12:00 AM SELLING MANAGER) HIV 1/2 EIA Antibody neg [facility] 04/29/1998 Narrative [facility] - 04/29/1998 12:00 AM SELLING MANAGER This external order was created through the Results Console. Historical Provider LAB - CHEMISTRY O RDERABLES [facility] from Last 3 Months or Most Recently Relevant to Health Maintenance Advance Directives * Full Code (Latest Code Status on File) Date Activated Date Inactivated Comments 03/30/2015 8:05 PM 04/03/2015 5:18 PM * Full Code Date Activated Date Inactivated Comments 03/30/2015 4:37 AM 03/30/2015 6:57 PM * Full Code Date Activated Date Inactivated Comments 03/30/2015 3:19 AM 03/30/2015 4:37 AM * Full Code Date Activated Date Inactivated Comments 03/29/2015 8:43 AM 03/29/2015 2:43 PM * Full Code Date Activated Date Inactivated Comments 03/08/2015 4:02 PM 03/09/2015 9:06 PM Care Teams Call Or Contact Centre Team Leader Relationship Specialty Start Date End Date Steve Davis MD [address] [place] [address] PCP - General Family Medicine 03/30/15
--- OUTSIDE RECORDS SUMMARY | 2024-04-29 22:42 | XMS_ITS | Clinical Summary ---
Author Organization [facility] Address [address] [place] [address] [place] [address] Care Team Providers Care Wax Coating Machine Tender Name Role Phone Steve Davis MD Primary Care Provider [phone] Source Comments [facility],non-owned Affiliates and Associated Physician Practices is amultiple site organization consisting of ambulatory clinics and hospital sitesin [place], [place], [place] and [place]. This disclosure is being madepursuant to the Care Everywhere program and may not contain all information available regarding this patient. Last updated 18.[facility] Allergies No known active allergies Medications * [...] Obesity 11/14/2014 Supervision of high risk in [facility] 11/14/2014 Overview (11/14/2014): Dating: IVF History of ectopic 11/14/2014 Overview (11/14/2014): Salpingectomy in 2009 Hyperemesis gravidarum with electrolyte imbalanc e Hypokalemia Maternal iron deficiency ane ryan affecting , antepartum Hypertension Status post section Immunizations Name Administration Dates Next Due INFLUENZA 12/28/2014 TDAP (7yrs+) 12/28/2014 Family History Medical History Relation Name Comments Diabetes Father Breast Cancer after age 50 or unknown Maternal Grandmo ther Diabetes Paternal Grandfather Breast Cancer at or under age 50 Paternal Grandmother Relation Name Status Comments Father Maternal Grandmother Paternal Grandfather Paternal Grandmother Social History Tobacco Use Types Packs/Day Years [...] Comments Blood Pressure 112/70 05/05/2015 1:44 PM PRODUCTION FINISHER Pulse 76 05/05/2015 1:44 PM PRODUCTION FINISHER Temperature 36.7 ??C (98.1 ??F) 04/03/2015 8:00 AM CS T Respiratory Rate 16 05/05/2015 1:44 PM PRODUCTION FINISHER Oxygen Saturation 96% 03/31/2015 3:07 AM PRODUCTION FINISHER Inhaled Oxygen Concentration - - Weight 91.6 kg (202 lb) 05/05/2015 1:44 PM PRODUCTION FINISHER Height 167.6 cm (5' 6 ) 05/05/2015 1:44 PM PRODUCTION FINISHER Body Mass Index 32.6 05/05/2015 1:44 PM PRODUCTION FINISHER Plan of Treatment Health Maintenance Due Date Last Done Comments PAP SMEAR 1986 HEPATITIS C SCREENING 03/31/2004 HEPATITIS B VACCINE (1 of 3 - 19+ 3-dose series) 2005 DEPRESSION SCREENING 04/29/2023 COVID-19 VACCINE (1 - 2023-2 5 season) 2023 INFLUENZA VACCINE (#1) 2023 5, 12/28/2014 DTAP/TDAP/TD VACCINES (2 - T d or Tdap) 12/28/2024 12/28/2014 ZOSTER VACCINE (1 of 2) 2036 HIV SCREENING Completed 04/29/1998 HIB VACCINE Aged Out No longer eligi ble based on patient's age to complete this topic HPV VACCINE Aged Out No longer eligi ble based on patient's age to complete this topic MENINGOCOCCAL VACCINE Aged Out No mayte kamron eligible based on patient's age to complete this topic PNEUMOCOCCAL VACCINE Aged Out No long er eligible based on patient's age to complete this topic Procedures Procedure Name Priority Date/Time Associated Diagnosis Comments HIV-1 HIV-2 ANTIBODIES W RFLX REFLEXED Routine 04/29/1998 12:00 AM PRODUCTION FINISHER from Last 3 Months or Most Recently Relevant to Health Maintenance Results * HIV-1 HIV-2 ANTIBODIES W RFLX REFLEXED (04/29/1998 12:00 AM PRODUCTION FINISHER) HIV 1/2 EIA Antibody neg [facility] 04/29/1998 Narrative [facility] - 04/29/1998 12:00 AM PRODUCTION FINISHER This external order was created through the Results Console. Historical Provider LAB - CHEMISTRY O RDERABLES [facility] from Last 3 Months or Most Recently [...] 4:02 PM 03/09/2015 9:06 PM Care Teams Wax Coating Machine Tender Relationship Specialty Start Date End Date Steve Davis MD [address] [place] [address] PCP - General Family Medicine 03/30/15
--- OUTSIDE RECORDS SUMMARY | 2024-04-29 22:43 | XMS_ITS | Encounter Summary ---
Author Organization [facility] Address [address] [place], [place] [address] [address] Care Team Providers Care Customer [employer] Teammate Name Role Phone Steve Davis MD Primary Care Provider [phone] Reason for Visit * Reason Comments Laboring * Auth/Cert - Closed Specialty Diagnoses / Procedures Referred By Renee t Referred To Contact Referral ID Status Reason Start Date Expiration Date Visits Re quested Visits Authorized [id number] Closed 1 1 Encounter Details Date Type Department Care Team (Latest Contact Info) Description 03/30/2015 2:39 AM COMMUNICATION LECTURER - 03/30/2015 5:53 PM COMMUNICATION LECTURER Hospital Encounter [facility] [address] [place] [address] Jose Antonio Perez MD [facility] [place] [address] Obstetrics Discharge Disposition: Home or Self Care Social History Tobacco Use Types Packs/Day Years Used Date Smoking Tobacco: Former Cigarettes Q uit: 04/29/2010 Smokeless Tobacco: Never Alcohol Use Standard Drinks/Week Comments No 0 (1 standard drink = 0.6 oz pur e alcohol) Comments Yes Sex and Gender Information Value Date Recorded Sex Assigned at Not on file Gender Identity Not on file Sexual Orientation Not on file documented as of this encounter Last Filed Vital Signs Vital Sign Reading Time Taken Comments Blood Pressure 123/78 03/30/2015 2:56 PM COMMUNICATION LECTURER Pulse - - Temperature 36.8 ??C (98.3 ??F) 03/30/2015 2:15 PM CS T Respiratory Rate 18 03/30/2015 2:45 AM COMMUNICATION LECTURER Oxygen Saturation 97% 03/30/2015 6:22 AM COMMUNICATION LECTURER Inhaled Oxygen Concentration - - Weight 112.9 kg (249 lb) 03/30/2015 2:45 AM COMMUNICATION LECTURER Height 167.6 cm (5' 6 ) 03/30/2015 2:45 AM COMMUNICATION LECTURER Body Mass Index 40.19 03/30/2015 2:45 AM COMMUNICATION LECTURER documented in this encounter Functional Status Functional [...] 03/30/2015 documented as of this encounter Discharge Instructions * Discharge Instructions* Yady Taylor RN - 03/30/2015 5:44 PM COMMUNICATION LECTURER UNDELIVERED PATIENT DISCHARGE INSTRUCTIONS CALL YOUR DOCTOR for the following: ?? If you are less than 39 weeks and have move than 5 contractions an hour. ?? Blurring ofvision or spots before your eyes. ?? Ruptured membranes or leakage of vaginal fluid. ?? May be a steady trickle or large gush ?? May be clear, yellow, pink or green ?? Decreased movement--if your baby has stopped movingor is moving less than it normally does. Do Kick Counts as instructed. ?? Vaginal bleeding--bright red bleeding and/or clots needs medical care immediately. ?? Any temperature above 101 degrees or as instructed by your care provider. ?? Headache that is not relieved by Tylenol (acetaminophen) ?? Any burning or painful urination or change in color or odor of your urine. ?? Increased swelling in your face, or hands. ?? Stomach pains, cramps, nausea,or diarrhea. UNICATION LECTURER documented in this encounter Medications at Time of Discharge Medication Sig Dispensed Refills Start Date End Date acetaminophen (TYLENOL) 500 MG tablet Take 500 mg by mouth every 4 hours as needed for Fever or Pain Maximum allowable Acetaminophen amount = 4 Grams (4000 mg) / 24 hours. butalbital-acetaminop hen-caffeine (FIORICET) 50-325-40 MG tablet Take 1 Tab [...] or cracked nipples.) 40 g 0 04/03/2015 oxyCODONE-acetaminoph en (PERCOCET) 5-325 MG tablet Take 1 Tab by mouth every 4 hours as needed 50 Tab 0 04/03/2015 Vit-Fe Fumarate-FA ( VITAMIN) 28-0.8 MG tablet Take 1 Tab by mouth once daily Doxylamine-Pyridoxine (DICLEGIS PO) 04/03/2015 metoclopramide (REGLAN) 10 MG tablet Take 10 mg by mouth 3 times daily before meals 015 ondansetron, disintegrating, (ZOFRAN ODT) 4 MG tablet Take 4 mg by mouth every 6 hours as needed for Nausea/Vomiting Allow tablet to dissolve on the tongue 04/03/2015 documented as of this encounter Progress Notes * Yady Taylor RN - 03/30/2015 6:02 PM CST Patient discharged per doctors orders. Patient is currently pain free, able to ambulate well on herown, and did void. IV discontinued. Patient given discharge instructions. UNICATION LECTURER * Kole Carpenter MD - 03/30/2015 5:07 PM CST R4 OB Progress Note Patient called out desires cervical check. She was found to be 6/100/BBOW. No cervical change all day and ctx absent from the monitor. We turned the epidural off and the patient is comfortable and desires to go home. She is comfortable with this plan. monitoring in reassuring and both fetuses are reactive. D/w Dr. Chris Carpenter MD 03/30/2015 5:09 PM UNICATION LECTURER * Amanda Morgan RN - 03/30/2015 3:23 PM CST Patient requesting to have epidural turned off and to be discharged home r/t labor not progressing as previously discussed as a possibility for plan of care. Dr. Manrique notified. Amanda Morgan RN UNICATION LECTURER * René Mullins MD - 03/30/2015 2:19 PM CST MS3 OB Labor Progress Note Date: 03/30/2015 Patient: Oanh Ortiz Subjective: Assessment of labor. Patient disappointed that contractions have ceased, encouraged to remain positive. Objective: Vitals: 03/30/15 1311 03/30/15 1324 03/30/15 1339 03/30/15 1356 BP: 123/63 139/75 129/69 139/79 Temp: Resp: Weight: SpO2: Temp (24hrs) Max:98.5 ??F Intake/Output Summary (Last 24 hours) at 03/30/15 1419 Last data filed at 03/30/15 0903 Gross per 24 hour Intake 2420.9 ml Output 0 ml Net 2420.9 ml Systolic (30hrs), Av mmHg, Min:89 mmHg, Max:152 mmHg Diastolic (30hrs), Av mmHg, Min:52 mmHg, Max:92 mmHg Physical Exam: Cervical Exam (per Dr. Carpenter) Dilation (cm): 6.0 Effacement: 100 Station: -3 FHT: moderate variability, no decels, baseline A: ~140bpm, baseline B: ~125bpm TOCO: inconclusive for contractions MEDICATIONS FOR CURRENT ENCOUNTER: *Hold/Avoid Anticoagulants and Antiplatelet agents, Other, 0800 and 1999 *Hold/Avoid Medication, Other, 0800 and 1999 0.9% NaCl injection 10 mL, Intracatheter, q8h [COMPLETED] acetaminophen (TYLENOL) tablet 1,000 mg, Oral, Once [COMPLETED] lactated ringers iv bolus, Intravenous, BOLUS IV [COMPLETED] magnesium sulfate bolus 4 g, Intravenous, BOLUS IV fentanyl 2 mcg/ml and ropivicaine 0.2% in 0.9% nacl Epidural, Epidural, Continuous lactated ringers infusion, Intravenous, Continuous lactated ringers infusion, Intravenous, Continuous magnesium sulfate infusion, Intravenous, Continuous oxytocin (PITOCIN) 30 units in 500 ml normal saline IV solution, Intravenous, CONTINUOUS PRN ropivacaine (NAROPIN) 2 MG/ML (0.2%) injection, Epidural, Continuous Or Or 0.9% NaCl injection 10 mL, Intracatheter, PRN lidocaine (XYLOCAINE MPF) 1 % injection, Infiltration, PRN metoclopramide (REGLAN) injection 10 mg, Intravenous, q6h PRN naloxone (NARCAN) injection 0.2 mg, Intravenous, q5 min PRN ondansetron (ZOFRAN) injection 4 mg, Intravenous, q6h PRN oxytocin (PITOCIN) 30 units in 500 ml normal saline IV solution, Intravenous, CONTINUOUS PRN prochlorperazine (COMPAZINE) suppository 25 mg, Rectal, q12h PRN terbutaline (BRETHINE) injection 0.25 mg, Intravenous, PRN Assessment: Ms. Oanh Ortiz is a female at 35w1d w/di-di twins. Plan: 1. Spontaneous Labor 1. Currently: 1. [place]: inconclusive for contractions 2. FHT: reassuring 3. Cervix: 6.0/100/-1 4. Membranes intact, bulging bag 2. No change in last 4 hours 3. D/C epidural 4. Monitor for cervical change 2. Complicated by: 1. Di-Di twin gestation 1. EFW: Twin A 2573g (65%ile), Twin B 2144g (32%ile) on 03/22/15 2. Breech/vertex presentation today, consented for possible caesarean and possible hysterectomy 3. Patient scheduled for IOL at 37 weeks 2. Pre-eclampsia: 1. No recent BP systolic >140 2. Mg D/C'd 3. Anemia: 1. Hgb: 10.7 as of 03/30, normal MCV, likely normal anemia of René Mullins 03/30/2015 2:19 PM MS3 UNICATION LECTURER Associated attestation - Darío Tabor MD - 03/30/2015 5:13 PM COMMUNICATION LECTURER Reviewed medical student note for educational purposes. Please see resident/attending note. Darío Tabor MD 03/30/2015, 5:13 PM * Darío Tabor MD - 03/30/2015 12:05 PM CST R1 OB Labor Progress Note 03/30/2015, 12:05 PM Per chart review Objective: BP 142/71 mmHg Temp(Src) 97.9 ??F Resp 18 Wt 249 lb (112.946 kg) BMI 40.21 kg/m2 Patient Vitals for the past 6 hrs: Temp BP 03/30/15 1145 - 142/71 mmHg 03/30/15 1138 - 152/80 mmHg 03/30/15 1115 97.9 ??F - 03/30/15 1109 - 120/69 mmHg 03/30/15 1039 - 129/81 mmHg 03/30/15 1008 - 131/80 mmHg 03/30/15 0938 - 128/63 mmHg 03/30/15 0904 - 122/63 mmHg 03/30/15 0850 - 107/52 mmHg 03/30/15 0833 - 116/59 mmHg 03/30/15 0818 - 117/59 mmHg 03/30/15 0803 - 116/58 mmHg 03/30/15 0750 - 128/59 mmHg 03/30/15 0734 - 131/76 mmHg 03/30/15 0718 - 110/63 mmHg 03/30/15 0715 98.1 ??F - 03/30/15 0713 - 113/55 mmHg 03/30/15 0708 - 115/67 mmHg 03/30/15 0700 - 115/59 mmHg 03/30/15 0657 - 112/55 mmHg 03/30/15 0652 - 109/57 mmHg 03/30/15 0647 - 107/55 mmHg 03/30/15 0644 - 108/53 mmHg 03/30/15 0636 - 114/56 mmHg 03/30/15 0633 - 110/59 mmHg 03/30/15 0630 - 116/61 mmHg 03/30/15 0627 - 123/59 mmHg 03/30/15 0624 - 116/55 mmHg 03/30/15 0621 - 119/63 mmHg 03/30/15 0617 - 94/52 mmHg 03/30/15 0615 - 89/55 mmHg 03/30/15 0611 - 104/56 mmHg 03/30/15 0609 - 95/53 mmHg Intake/Output Summary (Last 24 hours) at 03/30/15 1205 Last data filed at 03/30/15 0903 Gross per 24 hour Intake 2420.9 ml Output 0 ml Net 2420.9 ml Heart Tones: non-stress test (A): baseline rate 120-135, moderate variability, reactive, no decels (B): baseline rate 125-135, moderate variability, reactive, no decels [place]: irregular, every 5-10 minutes Cervical Exam: Dilation (cm): 6.0 Effacement: 100 Station: -3 Assessment: 29 y.o. @ 35w1d 1. PTL 1. Cervix 6/100/-3 at last exam at 9am 2. Continue expectant management 3. Consented for all forms of twin delivery on admission 2. Di/Di twins 1. Baby B (presenting) 2144g, Baby A 2573g on 03/22, AGA and concordant growth 3. Pre-Eclampsia 1. Recent BP's elevated 152/80, 142/71, CTM 2. 24hr urine 374mg on 03/09 3. Mg for severe BP's 4. Obesity Body mass index is 40.21 kg/(m^2). 5. Anemia 1. Hgb 10.7 on admission 6. H/o bipolar disorder 1. Not on medications, stable 7. FWB reassuring x2 Darío Tabor MD 03/30/2015 12:05 PM UNICATION LECTURER * Terri Mims I - 03/30/2015 10:58 AM CST CLINICAL NUTRITION Pt screened per nutrition Leveling of Care protocol: Pt is screened 2/2 BMI >40 a potential health risk , she could benefit from weight loss and diet education once she is delivered and no longer . Pt was seen during last admission 2/2 poor weight gain for twin , she lost weight initially 2/2 N&V, this is resolved , she got down as low as 209 # , gained back up to 249 # .11# weight gain is inadequate for obese and twins ( overall 40 # back ) . Intake improved greatly thru put . She is in L&D now on clear liquids for labor. No nutrition intervention is needed at this time. Gestational Age: 35w1d Med/Surg History and Clinical Diagnoses: PTL , Debbie twins , h/o mild Pr- eclampsia Height: 5' 6 (167.6 cm) Weight: 249 lb (112.946 kg) Pre- Weight: 238 lb (107.956 kg) Pre- BMI: 38.49 Recent Labs Component Name 03/29/15 0924 ALBUMIN 2.2* GCT 129 Recent Labs Component Name 03/30/15 0422 03/29/15 0924 03/08/15 1617 HGB 10.7* 10.0* 9.1* HCT 33.1* 30.3* 28.3* Pt could benefit from PNV + and Feso4 Supplement A woman admitted at 35w1d with Estimated Date of Delivery: 05/03/15. Weight gain of 11 # which was Inadequate Prepregnancy BMI indicates severely obese Class 2 . Alb severe depletion for . Skin/Wound: intact. Appetite : deferred Diet Order:Current diet order: Clear Liquids Food Allergies: No known food allergies P.O.intake for past 48 hours: No Data Recorded Nutrition recommendation: agree with current nutrition order Education needed: None Education was not indicated Will follow per low nutritional risk protocol. Terri Mims DTR 03/30/2015 11:02 AM Beeper [phone] UNICATION LECTURER * René Mullins MD - 03/30/2015 9:57 AM CST MS3 OB Labor Progress Note Date: 03/30/2015 Patient: Oanh Ortiz Subjective: Assessment of labor in di-di twin gestation. Objective: Vitals: 03/30/15 0818 03/30/15 0833 03/30/15 0850 03/30/15 0904 BP: 117/59 116/59 107/52 122/63 Temp: Resp: Weight: SpO2: Temp (24hrs) Max:98.5 ??F Intake/Output Summary (Last 24 hours) at 03/30/15 0958 Last data filed at 03/30/15 0903 Gross per 24 hour Intake 2420.9 ml Output 0 ml Net 2420.9 ml Systolic (30hrs), Av mmHg, Min:89 mmHg, Max:147 mmHg Diastolic (30hrs), Av mmHg, Min:52 mmHg, Max:92 mmHg Physical Exam: Cervical Exam (per Dr. Carpenter) Dilation (cm): 6.0 Effacement: 100 Station: -1 FHT: A: baseline 130, moderate variability, accels, no decels (OBIX yellow tracing) B: baseline 120, moderate variability, accels, no decels (OBIX blue tracing) TOCO: q3mins MEDICATIONS FOR CURRENT ENCOUNTER: *Hold/Avoid Anticoagulants and Antiplatelet agents, Other, 08 and 1999 *Hold/Avoid Medication, Other, 00 and 1999 0.9% NaCl injection 10 mL, Intracatheter, q8h [COMPLETED] lactated ringers iv bolus, Intravenous, BOLUS IV [COMPLETED] magnesium sulfate bolus 4 g, Intravenous, BOLUS IV fentanyl 2 mcg/ml and ropivicaine 0.2% in 0.9% nacl Epidural, Epidural, Continuous lactated ringers infusion, Intravenous, Continuous lactated ringers infusion, Intravenous, Continuous magnesium sulfate infusion, Intravenous, Continuous oxytocin (PITOCIN) 30 units in 500 ml normal saline IV solution, Intravenous, CONTINUOUS PRN ropivacaine (NAROPIN) 2 MG/ML (0.2%) injection, Epidural, Continuous Or Or 0.9% NaCl injection 10 mL, Intracatheter, PRN lidocaine (XYLOCAINE MPF) 1 % injection, Infiltration, PRN metoclopramide (REGLAN) injection 10 mg, Intravenous, q6h PRN naloxone (NARCAN) injection 0.2 mg, Intravenous, q5 min PRN ondansetron (ZOFRAN) injection 4 mg, Intravenous, q6h PRN oxytocin (PITOCIN) 30 units in 500 ml normal saline IV solution, Intravenous, CONTINUOUS PRN prochlorperazine (COMPAZINE) suppository 25 mg, Rectal, q12h PRN terbutaline (BRETHINE) injection 0.25 mg, Intravenous, PRN Assessment: Ms. Oanh Ortiz is a 35w1d female at 35w1d w/di-di twins. Plan: ?? Spontaneous Labor of Di-Di twin gestation 1. EFW: Twin A 2573g (65%ile), Twin B 2144g (32%ile) on 03/22/15 2. Breech/vertex presentation today, consented for possible caesarean and possible hysterectomy 3. Patient scheduled for IOL at 37 weeks. 4. Currently: [place]: q3mins; FHT: reassuring; Cervix: 6.0/90/-1 5. Membranes intact, bulging bag 6. Monitor for cervical change René Mullins 03/30/2015 9:58 AM MS3 UNICATION LECTURER Associated attestation - Darío Tabor MD - 03/30/2015 5:13 PM COMMUNICATION LECTURER Reviewed medical student note for educational purposes. Please see resident/attending note. Darío Tabor MD 03/30/2015, 5:13 PM * Clara Saucedo MD - 03/30/2015 4:16 AM CST I discussed with patient the risks of a twin delivery, including but not limited to cord prolapse, placental abruption, breech extraction, head intrapment, injury/permanent disability/, possible delivery, and prolonged interval between delivery. She agreed to proceed with vaginal delivery if able and delivery if indicated. I discussed with Oanh Ortiz the risks section including but not limited to: bleeding, infection, damage to vital organs(bladder, bowel, etc), need for blood transfusion or blood products (which she did accept), and possible hysterectomy if necessary for lifesaving purposes. Oanh Ortiz agreed to section and possible hysterectomy if necessary. Consent form was signed. Clara Saucedo MD 03/30/2015 UNICATION LECTURER documented in this encounter H&P Notes * Elmira Ellis MD - 03/30/2015 3:29 AM CST PGY-1 Obstetric H&P CC: Contractions HPI: 29 y.o. at 35w1d weeks gestation. Dating: LMP and date of Implantation (IVF) Estimated Date of Delivery: 05/03/15 Care: With [employer] [facility] Patient's is complicated by: Patient Active [...] in 2009 Currently, patient presents with contractions. Miss Ortiz reports abdominal cramping in the evening. The pain was constant and dull. The painprogressed to contractions that came and went every 4-5 minutes and she started timing them around 1am. The contractions continued to worsen in severity and frequency and the patient decided to come in. She was told one of her twins was breech and that she should not labor at home. positive Ctx. negative LOF. negative VB. Movement [...] 2009 Gynecologic History: Abnormal pap smears: Yes. Cervical procedures: LEEP in 2004. STDs: No. [...] Start Date End Date Taking? Authorizing Provider acetaminophen (TYLENOL) 500 MG tablet Take 500 mg by mouth every 4 hours as needed for Fever or Pain Maximum allowable Acetaminophen amount = 4 Grams (4000 mg) / 24 hours. Yes Anabel Heath MD Doxylamine-Pyridoxine (DICLEGIS PO) Yes ProviderAnabel MD metoclopramide (REGLAN) 10 MG tablet Take 10 mg by mouth 3 times daily before meals Yes ProviderAnabel MD pjimzjkeqv-xysmwnrwbnfgf-uakvcvxt (FIORICET) 50-325-40 MG tablet Take 1 Tab by mouth every 4 hours as needed for Headache or Migraine 03/29/15 Darío Tabor MD ferrous sulfate 325 (65 FE) MG tablet Take 1 Tab by mouth 2 times daily with morning and evening meal 03/09/15 Clara Saucedo MD ondansetron, disintegrating, (ZOFRAN ODT) 4 MG tablet Take 4 mg by mouth every 6 hours as needed for Nausea/Vomiting Allow tablet to dissolve on the tongue ProviderAnabel MD Vit-Fe Fumarate-FA ( VITAMIN) 28-0.8 MG tablet Take 1 Tab by mouth once daily Anabel Heath MD Allergies: No Known Allergies [...] members with bleeding disorders No history of breast, ovarian, or uterine cancer Objective: Vitals: 03/30/15 0245 Temp: 97.7 ??F Resp: 18 Weight: 249 lb (112.946 kg) Routine Monitoring: non-stress test: Baby A: Baseline rate 125, reactive, moderate variability. Baby B: Baseline rate 135, reactive, moderate variability. [place]: Contractions every 1-4 minutes. Physical Exam: General: Alert, cooperative, no distress. Lungs: Clear to auscultation bilaterally, good air movement, normal breathing effort. Heart: Regular rate and rhythm, normal S1 and S2, no murmurs. Abdomen: Gravid. soft without mass, non-tender, palpable contractions. Female Genitalia: External genitalia and intoitus normal; vagina and cervix normal by visualization. Some thick white-yellow mucous adherent to cervix. Extremities: No swelling, redness, or tenderness bilaterally. Patient has trace edema in lower extremities bilaterally. [place]: 4 #, 5# Sterile speculum exam: Bright light exam: Not done Exam for ROM: Pooling: negative, Nitrizine: Not done, Fern: negative Wet Prep: no pathogens, WBCs negative Cervical Exam Dilation (cm): 6.0 Effacement: 90 Pelvimetry: Diagonal conjugate reached: No Ischial Spines prominent: No Suprapubic arch, narrow: No Pelvic sidewalls divergent: Yes Gynecoid pelvis: Yes Bedside Ultrasound: Presentation: Vertex / Breech Current Lab Review: No results found for this visit on 03/30/15. Labs reviewed Blood type: A+ Rh status: Positive Ab screen:Negative Rubella: Not found Hep B surface antigen:Negative RPR: Not found HIV:Negative GCT: 129 GBS: Negative Assessment/Plan: Miss Ortiz is a 29 y.o. @ 35w1d who presented at the [facility] with contractions. 1. Labor 1. Patient painfully maeve. 2. Regular contractions on toco 3. Cervix 6/90/-2, bulging bag. 4. GBS negative 5. Presenting twin vertex 6. Plan epidural 2. Dichorionic/Diamniotic Twins 1. Via IVF 2. A 2144v/ B 2573b on scan 03/23/15. 3. Consented for breech extraction, section, external and internal version of second twin. 4. Patient desires vaginal delivery 3. History of Mild Preeclampsia 1. 24 hour urine on 03/09 374mg 2. PIH labs yesterday WNL 3. Asymptomatic at this time. 4. BPs normal currently 5. Continue to monitor blood pressures. 4. FWB reassuring x 2 5. Disposition: Admit to labor and delivery for expectant management, plan epidural and vaginal delivery. Discussed with Javier Saucedo and Rhonda. Анна Anand MD 03/30/2015 3:30 AM R3 H&P Addendum: Patient seen and evaluated independently. Patient presented to [facility] with c/o contractions. She states of +FM and denies LOF and VB. Patient Vitals for the past 6 hrs: Temp Resp BP 03/30/15 0441 - - 125/76 mmHg 03/30/15 0439 98.5 ??F - - 03/30/15 0255 - - 129/87 mmHg 03/30/15 0245 97.7 ??F 18 - Physical Exam: General: NAD Abdomen: gravid, soft, no RUQ pain Extremities: bilaterally, no edema, non tender Pelvimetry: per Dr. Monica Anand Diagonal conjugate reached: No Ischial Spines prominent: No Suprapubic arch, narrow: No Pelvic sidewalls divergent: No Gynecoid pelvis: Yes Cervical Exam Dilation (cm): 6.0 Effacement: 90 Recent Labs Component Name 03/30/15 0422 03/29/15 0924 03/08/15 1617 WBC 10.4 8.2 9.7 HGB 10.7* 10.0* 9.1* HCT 33.1* 30.3* 28.3* PLTCOUNT 164 153 183 A Bedside Ultrasound: Baby B presenting breech, maternal left, baby A maternal right is breech Labs: Blood Type (Manually Reproduced): A RH (Manually Reproduced): Positive Syphilis Serology (Manually Reproduced): Negative HIV (Manually Reproduced): Negative Hepatitis B Surface Antigen (Manually Reproduced): Negative Rubella Status ( Manually Reproduced): Immune Patient Active Problem List Diagnosis ??? Dichorionic [...] , antepartum ??? Hypertension ??? Threatened labor 29 y.o. at 35w1d Patient of [facility] 1. labor: cervix BBOW. GBS NEgative. Baby B presenting and vertex, Baby A breech- patient desires vaginal delivery and is consented for breech extraction and possible delivery. Expectant management. 2. PreEclampsia- with mild featurs only. BPs not elevated. Magnesium for seizure prophylaxis. 3. Dichorionic Diamniotic IVF : Baby B (presenting) 2144grams, Baby A 2573 on 03/23, AGA and concordant growth 4. Maternal obesity Body mass index is 40.21 kg/(m^2). 5. Iron deficient anemia hgb 10.7, requiring iron transfusions this 6. H/o depression- without meds, stable Case to be discussed with Dr. Chris Ellis MD 03/30/2015 4:57 AM UNICATION LECTURER Associated attestation - Jose Antonio Perez MD - 03/30/2015 10:18 AM COMMUNICATION LECTURER Oanh Ortiz is a , 29 y.o. female at 35w1d weeks gestation admitted for Pre-term labor and Multiple gestation She reports good movement. Patient reports: no bleeding, no leakingand occasional contractions.. [place] [facility] [place] current obstetrical history is significant for: . Patient Active Problem List Diagnosis ??? Dichorionic [...] , antepartum ??? Hypertension ??? Threatened labor . Past Medical History Diagnosis Date ??? History of anemia ??? 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 Nausea/vomiting in ??? Abnormal Pap smear of cervix LEEP 2004 ??? Multiple gestation Review of Systems - General ROS: negative Psychological ROS: negative Ophthalmic ROS: negative ENT ROS: negative Allergy and Immunology ROS: negative Hematological and Lymphatic ROS: negative Endocrine ROS: negative Breast ROS: negative for breast lumps Respiratory ROS: no cough, shortness of breath, or wheezing Cardiovascular ROS: no chest pain or dyspnea on exertion Gastrointestinal ROS: no abdominal pain, change in bowel habits, or black or bloody stools Genito-Urinary ROS: no dysuria, trouble voiding, or hematuria Musculoskeletal ROS: negative Neurological ROS: no TIA or stroke symptoms Dermatological ROS: negative Family History Problem Relation Age of Onset ??? Breast Cancer after age 50 or unknown Maternal Grandmother ??? Breast Cancer at or under age 50 Paternal Grandmother ??? Diabetes Paternal Grandfather ??? Diabetes Father OB History Para Term AB TAB SAB Ectopic Multiple Living 3 1 1 1 0 1 1 History Social History ??? Marital Status: Spouse [...] ??? Not on file Social History Narrative Past Surgical History Procedure Laterality Date ??? Cervical leep 2009 ??? Lap salpingostomy 2009 No Known Allergies No current facility-administered medications on file prior to encounter. Current Outpatient Prescriptions on File Prior to Encounter Medication Sig Dispense Refill ??? acetaminophen (TYLENOL) 500 MG tablet Take 500 mg by mouth every 4 hours as needed for Fever orPain Maximum allowable Acetaminophen amount = 4 Grams (4000 mg) / 24 hours. ??? Doxylamine-Pyridoxine (DICLEGIS PO) ??? metoclopramide (REGLAN) 10 MG tablet Take 10 mg by mouth 3 times daily before meals ??? amkgxzvzue-bmkcejtrfopcr-rbiumtfh (FIORICET) 50-325-40 MG tablet Take 1 Tab by mouth every 4 hours as needed for Headache or Migraine 20 Tab 0 ??? ferrous sulfate 325 (65 FE) MG tablet Take 1 Tab by mouth 2 times daily with morning and evening meal 60 Tab 2 ??? ondansetron, disintegrating, (ZOFRAN ODT) 4 MG tablet Take 4 mg by mouth every 6 hours as needed for Nausea/Vomiting Allow tablet to dissolve on the tongue ??? Vit-Fe Fumarate-FA ( VITAMIN) 28-0.8 MG tablet Take 1 Tab by mouth once daily Physical examination: BP 131/80 mmHg Temp(Src) 98.1 ??F Resp 18 Wt 249 lb (112.946 kg) BMI 40.21 kg/m2 ,Body massindex is 40.21 kg/(m^2). General: alert, cooperative, no distress, oriented to person, place, and time HEENT: PERRLA, EOMI, clear MMM Skin warm normal turgor Neck: Without adenopathy or thyromegaly. Lungs: breath sounds normal and symmetric; no rales or wheezes Heart: regular rhythm, normal S1 and S2, without murmurs, gallops or rubs Back: Without flank or CVA tenderness Extremities: no edema Abdomen: Soft without mass, tenderness or organomegaly Bowel sounds active Uterine: non-tender, mobile, appropriate size and contour Skin: no rashes or petechiae Psych: calm, well-groomed and appropriate Neuro: Motor 5/5. Reflexes 2+ no clonus Hospital Encounter on 03/30/15 URINALYSIS ROUTINE W/REFLEX TO CULTURE Result Value Ref Range Color UA Yellow Straw, Yellow, Dark Yellow Clarity UA Clear Specific [place] UA 1.007 1.005-1.030 pH UA 7.5 5.0-8.0 pH Protein UA Negative Negative Blood UA 2+ (Abnormal) Negative Leukocyte UA Negative Negative Nitrite UA Negative Negative Glucose UA Negative Negative Ketone UA Negative Negative Bili UA Negative Negative Urobilinogen UA 0.2 0.1-1.0 EU/dL WBC UA Auto 0-2 0-2, 2-5 # /hpf RBC UA Auto 0-2 0-2, 2-5 # /hpf Epithelial Cell UA Auto 0-2 0-2, 2-5 # /hpf Reflex Status Culture not indicated CBC W AUTO DIFFERENTIAL Result Value Ref Range WBC 10.4 4.4-10.7 x10^9/L WBC Corrected x10^9/L RBC 4.08 3.80-5.20 x10^12/L Hgb 10.7 (L) 12.0-15.6 gm/dL HCT 33.1 (L) 35.9-45.5 % MCV 81.1 80.7-98.3 fl MCH 26.2 (L) 26.7-34.0 pg MCHC 32.3 30.8-35.9 gm/dL Plt Ct 164 153-416 x10^9/L RDW-CV 18.2 (H) 12.1-14.9 % MPV 11.1 9.4-12.9 fl Neutro 72.2 44.0-73.0 % Lymph 19.0 (L) 20.0-43.0 % [place] 7.5 5.0-13.0 % Eos 0.6 0.0-6.0 % Baso 0.2 0.0-2.0 % Immature Grans 0.5 0-1 % Neutro Abs 7.51 (H) 2.01-7.14 x10^9/L Lymph Abs 1.98 1.07-3.94 x10^9/L [place] Abs 0.78 0.26-1.07 x10^9/L Eosin Abs 0.06 0-0.47 x10^9/L Baso Abs 0.02 0-0.08 x10^9/L Immature Grans (Abs) 0.05 0.00-0.06 x10^9/L TYPE + SCREEN PANEL Result Value Ref Range ABO Patient Type A Rh Patient Type Positive Antibody Screen Negative Non-Stress Test (NST) Interpretation: Fetus A: Baseline: 125 beats/minute reactive Contractions: every 4-6 minutes heart variability: moderate Decelerations: none Fetus B: Baseline: 135 beats/minute reactive heart variability: moderate Decelerations: none Impression: Estimated Date of Delivery: 05/03/15 Gestational Age 35w1d Obstetrical history Patient Active Problem List Diagnosis ??? Dichorionic [...] , antepartum ??? Hypertension ??? Threatened labor Plan: expectant management, will not augment at this time Jose Antonio Perez MD documented in this encounter Plan of Treatment Scheduled Orders Name Type Priority Associated Diagnoses Orde r Schedule INTRAUTERINE PRESSURE CATHETER OB Routine ONCE for 1 Occur rences starting 03/30/2015 until 03/30/2015 documented as of this encounter Procedures Procedure Name Priority Date/Time Associated Diagnosis Comments TYPE + SCREEN PANEL STAT 03/30/2015 4 :22 AM COMMUNICATION LECTURER Dichorionic diamniotic twin (HCC) CBC W AUTO DIFFERENTIAL STAT 03/30/2015 4:22 AM COMMUNICATION LECTURER Dichorionic diamniotic twin (HCC) URINALYSIS REFLEX MICROSCOPIC REFLEX CULTURE STAT 03/30/2015 3:24 AM COMMUNICATION LECTURER Threatened labor, third trimester (HCC) documented in this encounter Results * TYPE + SCREEN PANEL (03/30/2015 4:22 AM COMMUNICATION LECTURER) ABO A 03/30/2015 5:04 AM [facility] Rh Type Positive 03/30/2015 5:04 AM [facility] Comment:History check perfor med. No retype required. Antibody Screen Negative 03/30/2015 5:04 AM [facility] Miscellaneous samples (specimen) BLOOD SPECIMEN / Unknown 03/30/2015 4:22 AM COMMUNICATION LECTURER 03/30/2015 4:29 AM COMMUNICATION LECTURER Анна Anand MD LAB - BLOOD BANK ORD ERABLES [facility] [address] * (ABNORMAL) CBC W AUTO DIFFERENTIAL (03/30/2015 4:22 AM COMMUNICATION LECTURER) WBC 10.4 4.4 - 10.7 x10^9/L 03/30/2015 4:42 AM [facility] WBC Corrected x10^9/L 03/30/2015 4:42 AM [facility] RBC 4.08 3.80 - 5.20 x10^12/L 03/30/2015 4:42 AM [facility] Hemoglobin 10.7(L) 12.0 - 15.6 gm/dL 03/30/2015 4:42 AM [facility] Hematocrit 33.1(L) 35.9 - 45.5 % 03/30/2015 4:42 AM [facility] MCV 81.1 80.7 - 98.3 fl 03/30/2015 4:42 AM [facility] MCH 26.2(L) 26.7 - 34.0 pg 03/30/2015 4:42 AM [facility] MCHC 32.3 30.8 - 35.9 gm/dL 03/30/2015 4:42 AM [facility] Platelet Count 164 153 - 416 x10^9/L 03/30/2015 4:42 AM [facility] RDW-CV 18.2(H) 12.1 - 14.9 % 03/30/2015 4:42 AM [facility] MPV 11.1 9.4 - 12.9 fl 03/30/2015 4:42 AM [facility] Neutrophils % 72.2 44.0 - 73.0 % 03/30/2015 4:42 AM [facility] Lymphocytes % 19.0(L) 20.0 - 43.0 % 03/30/2015 4:42 AM [facility] Monocytes % 7.5 5.0 - 13.0 % 03/30/2015 4:42 AM [facility] Eosinophils % 0.6 0.0 - 6.0 % 03/30/2015 4:42 AM [facility] Basophils % 0.2 0.0 - 2.0 % 03/30/2015 4:42 AM [facility] Immature Granulocytes 0.5 0 - 1 % 03/30/2015 4:42 AM [facility] Neutrophil Absolute 7.51(H) 2.01 - 7.14 x10^9/L 03/30/2015 4:42 AM [facility] Lymphocytes Absolute 1.98 1.07 - 3.94 x10^9/L 03/30/2015 4:42 AM [facility] Monocytes Absolute 0.78 0.26 - 1.07 x10^9/L 03/30/2015 4:42 AM [facility] Eosinophils Absolute 0.06 0 - 0.47 x10^9/L 03/30/2015 4:42 AM [facility] Basophils Absolute 0.02 0 - 0.08 x10^9/L 03/30/2015 4:42 AM [facility] Immature Granulocytes Absolute 0.05 0.00 - 0.06 x10^9/L 03/30/2015 4:42 AM [facility] Blood BLOOD SPECIMEN / Unknown 03/30/2015 4:22 AM COMMUNICATION LECTURER 03/30/2015 4:29 AM [facility] Анна Anand MD LAB - HEMATOLOGY ORD ERABLES Performing Organization Address City/State/[facility] Co de Phone Number [facility] [address] [place] [address] * (ABNORMAL) URINALYSIS ROUTINE W/REFLEX TO CULTURE (03/30/2015 3:24 AM [facility]) Color UA Yellow Straw, Yellow, Dark Yellow 03/30/2015 3:54 AM [facility] Clarity UA Clear 03/30/2015 3:54 AM [facility] Specific [place] UA 1.007 1.005 - 1.030 03/30/2015 3:54 AM [facility] pH UA 7.5 5.0 - 8.0 pH 03/30/2015 3:54 AM COMMUNICATION LECTURER [facility] Protein UA Negative Negative 03/30/2015 3:54 AM COMMUNICATION LECTURER [facility] Blood UA 2+(A) Negative 03/30/2015 3:54 AM COMMUNICATION LECTURER [facility] Leukocyte UA Negative Negative 03/30/2015 3:54 AM COMMUNICATION LECTURER [facility] Nitrite UA Negative Negative 03/30/2015 3:54 AM COMMUNICATION LECTURER [facility] Glucose UA Negative Negative 03/30/2015 3:54 AM COMMUNICATION LECTURER [facility] Ketone UA Negative Negative 03/30/2015 3:54 AM COMMUNICATION LECTURER [facility] Bilirubin UA Negative Negative 03/30/2015 3:54 AM COMMUNICATION LECTURER [facility] Urobilinogen UA 0.2 0.1 - 1.0 EU/dL 03/30/2015 3:54 AM [facility] WBC UA Auto 0-2 0-2, 2-5 # /hpf 03/30/2015 3:54 AM [facility] RBC UA Auto 0-2 0-2, 2-5 # /hpf 03/30/2015 3:54 AM [facility] Epithelial Cell UA Auto 0-2 0-2, 2-5 # /hpf 03/30/2015 3:54 AM [facility] Reflex Status Culture not indicated 03/30/2015 3:54 AM [facility] Urine URINE SPECIMEN OBTAINED BY CLEAN CATCH PROCEDURE / Unknown 03/30/2015 3:24 AM COMMUNICATION LECTURER 03/30/2015 3:38 AM COMMUNICATION LECTURER Анна Anand MD LAB - URINALYSIS ORD ERABLES Performing Organization Address City/State/[facility] Co de Phone Number [facility] [address] [place] [address] documented in this encounter Visit Diagnoses Diagnosis Threatened labor, third trimester (HCC)- Primary Dichorionic diamniotic twin (HCC) Twin , antepartum Threatened labor (HCC) Threatened premature labor, unspecified as to episode of care documented in this encounter Administered Medications Inactive Administered Medications - up to 3 most recent administrations Medication Order MAR Action Action Date Dose Rate Site acetaminophen (TYLENOL) tablet 1,000 mg 1,000 mg, Oral, ONCE, 1 dose, On Sat03/30/15 at 1215 $ Given 03/30/2015 12:05 PM COMMUNICATION LECTURER 1,000 mg lactated ringers infusion ADS Med 1 dose, Starting on Sat03/30/15 at 0429, Until Sat03/30/15 at 0445, Nereyda Ruffin : cabinet override lactated ringers infusion at 125 mL/hr, Intravenous, CONTINUOUS, Starting on Sat03/30/15 at 0500, Until Sat03/30/15 at 1857, Start IV with 18 gauge angiocath. $ Bolus New Bag 03/30/2015 4:45 AM COMMUNICATION LECTURER 1,000 mL 125 mL/hr lactated ringers infusion at 125 mL/hr, Intravenous, CONTINUOUS, Starting on Sat03/30/15 at 0615, Until Sat03/30/15 at 1857 $ New Bag/Syringe 03/30/2015 11:54 AM COMMUNICATION LECTURER 125 mL/hr Rate Change 03/30/2015 6:52 AM COMMUNICATION LECTURER 125 mL/hr $ New Bag/Syringe 03/30/2015 6:36 AM COMMUNICATION LECTURER 125 mL /hr lactated ringers iv bolus 1,000 mL, Administer over 60 Minutes, BOLUS IV, 1 dose, On Sat03/30/15 at 0545 $ Bolus New Bag 03/30/2015 5:40 AM COMMUNICATION LECTURER 1,000 mL magnesium sulfate bolus 4 g 4 g, at 200-300 mL/hr, Administer over 20-30 Minutes, BOLUS IV, 1 dose, On Sat03/30/15 at 0530, Run over 20-30 minutes. Maximum rate 2g/10 minutes. Monitor BP, Pulse, and Respirations every 5 minutes, and assess for the following side effects: - [facility] Depression - Chest Pain - Palpitations - Flushing - Nausea - Vomiting - Headache - Blurred Vision - Respiratory Depression $ Given 03/30/2015 5:45 AM COMMUNICATION LECTURER 4 g 300 mL/hr magnesium sulfate infusion 2 g/hr (50 mL/hr), Intravenous, CONTINUOUS, Starting on Sat03/30/15 at 0600, Until Sat03/30/15 at 1857, 2 g/hr = 50 ml/hr $ New Bag/Syringe 03/30/2015 6:07 AM COMMUNICATION LECTURER 2 g/hr 50 mL/hr ondansetron (ZOFRAN) injection 4 mg 4 mg, Intravenous, EVERY 6 HOURS PRN, Nausea/Vomiting, Starting on Sat03/30/15 at 0437, Until Sat03/30/15 at 1857, Start with ondansetron. If ondansetron ineffective use metoclopramide. If metoclopramide ineffective use prochlorperazine. $ Given 03/30/2015 6:20 AM COMMUNICATION LECTURER 4 mg documented in this encounter Active and Recently Administered Medications Times are shown in COMMUNICATION LECTURER. Scheduled Medication Order 03/28/2015 03/29/2015 03/30/2015 acetaminophen (TYLENOL) tablet 1,000 mg (COMPLETED) 1,000 mg, Oral, ONCE, 1 dose, On Sat03/30/15 at 1215 1205 ($ Given - Prov ider: Amanda Morgan RN) lactated ringers iv bolus (COMPLETED) 1,000 mL, Administer over 60 Minutes, BOLUS IV, 1 dose, On Sat03/30/15 at 0545 0540 ($ Bolus New Ron g - Provider: Krista Keys, RIYA) magnesium sulfate bolus 4 g (COMPLETED) 4 g, at 200-300 mL/hr, Administer over 20-30 Minutes, BOLUS IV, 1 dose, On Sat03/30/15 at 0530, Run over 20-30 minutes. Maximum rate 2g/10 minutes. Monitor BP, Pulse, and Respirations every 5 minutes, and assess for the following side effects: - [facility] Depression - Chest Pain - Palpitations - Flushing - Nausea - Vomiting - Headache - Blurred Vision - Respiratory Depression 0545 ($ Given - Prov ider: Krista Keys RN)0605 (Rx Stopped - Provider: Krista Keys RN) Continuous Medication Order 03/28/2015 03/29/2015 03/30/2015 lactated ringers infusion (CANCELED) at 125 mL/hr, Intravenous, CONTINUOUS, Starting on Sat03/30/15 at 0500, Until Sat03/30/15 at 1857, Start IV with 18 gauge angiocath. 0445 ($ Bolus New Ba g - Provider: Krista Keys, RIYA) lactated ringers infusion (CANCELED) at 125 mL/hr, Intravenous, CONTINUOUS, Starting on Sat03/30/15 at 0615, Until Sat03/30/15 at 1857 0548 ($ New Bag/Syri nge - Provider: Krista Keys, RIYA)0616 (Bolus Current Bag/Med - Provider: Krista Keys RN)0636 ($ New Bag/Syringe - Provider: Krista Keys RN)0652 (Rate Change - Provider: Krista Keys RN)1154 ($ New Bag/Syringe - Provider: Amanda Morgan, RIYA) magnesium sulfate infusion (CANCELED) 2 g/hr (50 mL/hr), Intravenous, CONTINUOUS, Starting on Sat03/30/15 at 0600, Until Sat03/30/15 at 1857, 2 g/hr = 50 ml/hr 0607 ($ New Bag/Syri nge - Provider: Krista Keys RN)0902 (Stopped - Provider: Amanda Morgan, RN - Comment: per dr. manrique) PRN Medication Order 03/28/2015 03/29/2015 03/30/2015 ondansetron (ZOFRAN) injection 4 mg (CANCELED)(Linked Group 1) 4 mg, Intravenous, EVERY 6 HOURS PRN, Nausea/Vomiting, Starting on Sat03/30/15 at 0437, Until Sat03/30/15 at 1857, Start with ondansetron. If ondansetron ineffective use metoclopramide. If metoclopramide ineffective use prochlorperazine. 0620 ($ Given - Prov ider: Krista Keys RN) Linked Groups Order Group 1: ondansetron (ZOFRAN) injection 4 mg (CANCELED)Jump to med 4 mg, Intravenous, EVERY 6 HOURS PRN, Nausea/Vomiting, Starting on Sat03/30/15 at 0437, Until Sat03/30/15 at 1857, Start with ondansetron. If ondansetron ineffective use metoclopramide. If metoclopramide ineffective use prochlorperazine. Or metoclopramide (REGLAN) injection 10 mg (CANCELED) 10 mg, Intravenous, EVERY 6 HOURS PRN, Nausea/Vomiting, Starting on Sat03/30/15 at 0437, Until Sat03/30/15 at 1857, Start with ondansetron. If ondansetron ineffective use metoclopramide. If metoclopramide ineffective use prochlorperazine. Or prochlorperazine (COMPAZINE) suppository 25 mg (CANCELED) 25 mg, Rectal, EVERY 12 HOURS PRN, Nausea/Vomiting, Starting on Sat03/30/15 at 0437, Until Sat03/30/15 at 1857, Start with ondansetron. If ondansetron ineffective use metoclopramide. If metoclopramide ineffective use prochlorperazine. documented in this encounter Care Teams [employer] Teammate Relationship Specialty Start Date End Date Steve Davis MD [address] [facility] [employer] [address] [place] [address] PCP - General Family Medicine 03/30/15 documented as of this encounter
--- OUTSIDE RECORDS SUMMARY | 2024-04-29 22:43 | XMS_ITS | Encounter Summary ---
Author Organization [facility] Address [address] [place] [id number] Care Team Providers Care Digital Developer Name Role Phone Steve Davis MD Primary Care Provider [phone] Reason for Visit * Reason Comments Pain Back Contractions Encounter Details Date Type Department Care Team (Latest Contact Info) Description 03/04/2015 5:03 PM FRONT END SPECIALIST - 03/04/2015 10:17 PM FRONT END SPECIALIST Hospital Encounter [facility] [address] [place] [address] Rc Simmons MD 10[address] [facility] [address] [place] [id number] Discharge Disposition: Home or Self Care Social [...] Sign Reading Time Taken Comments Blood Pressure 125/86 03/04/2015 5:29 PM FRONT END SPECIALIST Pulse 79 03/04/2015 5:29 PM FRONT END SPECIALIST Temperature 36.9 ??C (98.5 ??F) 03/04/2015 5:29 PM CS T Respiratory Rate 18 03/04/2015 5:29 PM FRONT END SPECIALIST Oxygen Saturation - - Inhaled Oxygen Concentration - - Weight 105.2 kg (232 lb) 03/04/2015 5:29 PM FRONT END SPECIALIST Height 167.6 cm (5' 6 ) 03/04/2015 5:29 PM FRONT END SPECIALIST Body Mass Index 37.45 03/04/2015 5:29 PM FRONT END SPECIALIST documented in this encounter Functional Status Functional Status Response Date of Assess ment Is person deaf or have serious hearing difficult y? No 03/04/2015 Is person blind or have serious difficulty seein g? No 03/04/2015 Does person have serious dif ficulty walking/climbing stairs? No 03/04/2015 Does person have difficulty dressing/bathing? No 03/04/2015 Does person have difficulty doing errands alone? No 03/04/2015 Cognitive Status Response Date of Assessm ent Does person have difficulty concentrating/remembering/making decisions? No 03/04/2015 documented as of this encounter Discharge Instructions * Discharge Instructions* Lorena Aldridge RN - 03/04/2015 10:15 PM FRONT END SPECIALIST UNDELIVERED PATIENT DISCHARGE INSTRUCTIONS CALL YOUR DOCTOR (SEE NUMBER BELOW) ?? If you are less than 37 weeks and have move than 5 contractions [...] medical care immediately. ?? Any temperature above 100 degrees. ?? Headache ?? Any burning or painful urination. ?? Increased swelling in your face, hands, or feet. ?? Stomach pains, cramps, nausea,or diarrhea. Important Telephone Number: [facility] [phone] T END SPECIALIST documented in this encounter Medications at Time of Discharge Medication Sig Dispensed Refills Start Date End Date acetaminophen (TYLENOL) 500 MG tablet Take 500 mg by mouth every 4 hours as needed for Fever or Pain Maximum allowable Acetaminophen amount = 4 Grams (4000 mg) / 24 hours. Vit-Fe Fumarate-FA ( VITAMIN) 28-0.8 MG tablet [...] tongue 04/03/2015 documented as of this encounter H&P Notes * Darío Tabor MD - 03/04/2015 6:20 PM CST PGY-1 Obstetric H&P CC: Back and abdominal pain HPI: 29 y.o. at 31w3d weeks gestation. Dating: LMP Estimated Date of Delivery: 05/03/15 Care: With [facility] M/Dr. Tamez Patient's is complicated by: Patient Active Problem List Diagnosis Date Noted ??? Encounter for suspected PROM, with rupture [...] Salpingectomy in 2009 Currently, patient presents with pain since about 3pm. She has back pain in her lower back radiating to her front. The pain is dull/sore/achey and a 6-10.The pain is constant. She also feels pain in her upper abdomen. The pain is crampy and crosses her entire upper belly. The severity is a 6/10. The pain comes and goes. She reports it feels different than contractions. Associated symptoms include sharp pressure between her legs. Tylenol, taking a bath, laying on her side, resting all did not improve symptoms. negative Ctx. negative LOF. negative VB. Movement positive. [...] Anes PTL Lv 3 Current 2 Term 07/2012 39w0d 3685 g (8 lb 2 oz) Vag-Spont Y 1 Ectopic 2009 Gynecologic History: Abnormal pap smears: Yes, last one normal this . Cervical procedures: LEEP in 2004. STDs: No. Denies history of gonorrhea, chlamydia, trichomonas, herpes, HIV, syphilis Medical History: Past Medical History Diagnosis Date ??? History of anemia ??? 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 Nausea/vomiting in ??? Abnormal Pap smear of cervix LEEP 2004 Patient denies history of hypertension, diabetes, asthma or bleeding disorders. Psych History: Depression: No Anxiety: No Bipolar disorder: Yes, diagnosed last year. On no meds. medications. Schizophrenia: No Suicide attempts: No Abuse: No Surgeries: Past Surgical History Procedure Laterality Date ??? Cervical leep 2009 ??? Lap salpingostomy 2010 laparoscopic salpingectomy in 2009. Current Medications: Prior to Admission medications Medication Sig Start Date End Date Taking? Authorizing Provider acetaminophen (TYLENOL) 500 MG tablet Take 500 mg by mouth every 4 hours as needed for Fever or Pain Maximum allowable Acetaminophen amount = 4 Grams (4000 mg) / 24 hours. Yes Anabel Heath MD ondansetron, disintegrating, (ZOFRAN ODT) 4 MG tablet Take 4 mg by mouth every 6 hours as needed for Nausea/Vomiting Allow tablet to dissolve on the tongue Yes Anabel Heath MD Vit-Fe Fumarate-FA ( VITAMIN) 28-0.8 MG tablet Take 1 Tab by mouth once daily Yes Anabel Heath MD Doxylamine-Pyridoxine (DICLEGIS PO) Yes Anabel Heath MD metoclopramide (REGLAN) 10 MG [...] at or under age 50 Paternal Grandmother No history of infants born with defects No history of family members with bleeding disorders No history of uterine cancer Objective: Vitals: 03/04/15 1729 BP: 125/86 Pulse: 79 Temp: 98.5 ??F Resp: 18 Weight: 232 lb (105.235 kg) Physical Exam: General: Alert, cooperative, no distress. Lungs: Clear to auscultation bilaterally, good air movement, normal breathing effort. Heart: Regular rate and rhythm, normal S1 and S2, no murmurs. Abdomen: Gravid. Soft without mass, non-tender, with normal bowel sounds. Some mild palpable contractions. Female Genitalia: External genitalia and intoitus normal; vagina and cervix normal by visualization. Extremities: No swelling, redness, or tenderness bilaterally. Patient has trace edema in lower extremity edema. Sterile speculum exam: Bright light exam: Not done Exam for ROM: Pooling: negative, Nitrizine: Not done, Fern: negative Wet Prep: no pathogens, WBCs positive. Cervical Exam Dilation (cm): 1.0 Effacement: 25 Station: -3 Pelvimetry: Diagonal conjugate reached: No Ischial Spines prominent: No Suprapubic arch, narrow: No Pelvic sidewalls divergent: No Gynecoid pelvis: Yes Current Lab Review: Hospital Encounter on 03/04/15 URINALYSIS ROUTINE W/REFLEX TO CULTURE Result Value Ref Range Color UA Yellow Straw, Yellow, Dark Yellow Clarity UA Clear Specific [place]ie UA 1.009 1.005-1.030 pH UA 7.0 5.0-8.0 pH Protein UA Negative Negative Blood UA Negative Negative Leukocyte UA Negative Negative Nitrite UA Negative Negative Glucose UA Negative Negative Ketone UA Negative Negative Bili UA Negative Negative Urobilinogen UA 0.2 0.1-1.0 EU/dL Reflex Status Culture not indicated Labs: Will request if admitted. Assessment/Plan: Miss Ortiz is a 29 y.o. @ 31w3d who presented at the [facility] with abdominal and back pain. 1. Threatened Labor 1. Uterine irritability on [place], patient having abdominal pain that comes and goes. 2. Cervix 05/23/-3, pending recheck. 3. U/A negative for UTI, will follow culture. 4. Wet prep negative for pathogens. 5. SSE negative for rupture 6. Patient given 10mg procardia in [facility] without improvement in symptoms but with improvement in [facility]. 2. History of LEEP 1. In 2005, reports she had her cervical lengths checked early in , have improved. 3. FWB reassuring, baby B difficult to keep on the monitor. 4. Disposition: Per recheck and night team. Discussed with night team. Анна Anand MD 03/04/2015 8:49 PM PGY-1 Addendum Took over care of this patient from Dr. Steffany Anand. Cervix unchanged on recheck. Contractions resolved with Procardia 10mg and patient reported improvement of symptoms. FWB reassuring x2. Patient discharged home with PTL precautions. Darío Tabor MD 03/05/2015 4:16 AM T END SPECIALIST documented in this encounter Plan of Treatment Not on file documented as of this encounter Procedures Procedure Name Priority Date/Time Associated Diagnosis Comments URINALYSIS REFLEX MICROSCOPIC REFLEX CULTURE STAT 03/04/2015 7:25 PM FRONT END SPECIALIST Dichorionic diamniotic twin (HCC) documented in this encounter Results * URINALYSIS ROUTINE W/REFLEX TO CULTURE (03/04/2015 7:25 PM FRONT END SPECIALIST) Color UA Yellow Straw, Yellow, Dark Yellow 03/04/2015 7:33 PM FRONT END SPECIALIST [facility] Clarity UA Clear 03/04/2015 7:33 PM FRONT END SPECIALIST [facility] Specific [place]ie UA 1.009 1.005 - 1.030 03/04/2015 7:33 PM FRONT END SPECIALIST [facility] pH UA 7.0 5.0 - 8.0 pH 03/04/2015 7:33 PM FRONT END SPECIALIST [facility] Protein UA Negative Negative 03/04/2015 7:33 PM FRONT END SPECIALIST [facility] Blood UA Negative Negative 03/04/2015 7:33 PM FRONT END SPECIALIST [facility] Leukocyte UA Negative Negative 03/04/2015 7:33 PM FRONT END SPECIALIST [facility] Nitrite UA Negative Negative 03/04/2015 7:33 PM FRONT END SPECIALIST [facility] Glucose UA Negative Negative 03/04/2015 7:33 PM FRONT END SPECIALIST [facility] Ketone UA Negative Negative 03/04/2015 7:33 PM FRONT END SPECIALIST [facility] Bilirubin UA Negative Negative 03/04/2015 7:33 PM FRONT END SPECIALIST [facility] Urobilinogen UA 0.2 0.1 - 1.0 EU/dL 03/04/2015 7:33 PM FRONT END SPECIALIST [facility] Reflex Status Culture not indicated 03/04/2015 7:33 PM FRONT END SPECIALIST [facility] Urine URINE SPECIMEN OBTAINED BY CLEAN CATCH PROCEDURE / Unknown Collection / Unknown 03/04/2015 7:25 PM FRONT END SPECIALIST 03/04/2015 7:29 PM FRONT END SPECIALIST Oanh Julian MD LAB - URINALYSIS ORDERABLES [facility] [address] [place] [address] documented in this encounter Visit Diagnoses Diagnosis Dichorionic diamniotic twin (HCC) Twin , antepartum documented in this encounter Administered Medications Inactive Administered Medications - up to 3 most recent administrations Medication Order MAR Action Action Date Dose Rate Site NIFEdipine (PROCARDIA) capsule 10 mg 10 mg, Oral, 3 TIMES DAILY, First dose on Sat03/04/15 at 2100, Until Discontinued $ Given 03/04/2015 7:54 PM FRONT END SPECIALIST 10 mg NIFEdipine (PROCARDIA) capsule ADS Med 1 dose, Starting on Sat03/04/15 at 1949, Until Sat03/04/15 at 1954, Krista Dalton : cabinet override documented in this encounter Active and Recently Administered Medications Times are shown in FRONT END SPECIALIST. Scheduled Medication Order 03/02/2015 03/03/2015 03/04/2015 NIFEdipine (PROCARDIA) capsule 10 mg (CANCELED) 10 mg, Oral, 3 TIMES DAILY, First dose on Sat03/04/15 at 2100, Until Discontinued 1953 ($ Given - Prov ider: Krista Dalton RN) documented in this encounter Care Teams Digital Developer Relationship Specialty Start Date End Date Steve Davis MD [address] [place] [address] PCP - General Family Medicine 11/14/14 03/29/15 documented as of this encounter
--- OUTSIDE RECORDS SUMMARY | 2024-04-29 22:43 | XMS_ITS | Encounter Summary ---
Author Organization [facility] Address [address] [place], [place] [address] [address] Care Team Providers Care Instrumentation Engineer Name Role Phone Steve Davis MD Primary Care Provider [phone] Reason for Visit * Reason Comments Blurred Vision Cramps Encounter Details Date Type Department Care Team (Latest Contact Info) Description 02/25/2015 1:17 PM CDT - 02/25/2015 3:20 PM CDT Hospital Encounter [facility] [address] [place] [address] Stacia Marlow MD [address] [id number] Discharge Disposition: Home or Self Care Social [...] Sign Reading Time Taken Comments Blood Pressure 114/67 02/25/2015 3:04 PM CDT Pulse - - Temperature 36.5 ??C (97.7 ??F) 02/25/2015 1:52 PM CD T Respiratory Rate 18 02/25/2015 1:52 PM CDT Oxygen Saturation - - Inhaled Oxygen Concentration - - Weight 104.8 kg (231 lb) 02/25/2015 1:52 PM CDT Height 167.6 cm (5' 6 ) 02/25/2015 1:52 PM CDT Body Mass Index 37.28 02/25/2015 1:52 PM CDT documented in this encounter Discharge Instructions * Discharge Instructions* iL Booker RN - 02/25/2015 3:20 PM CDT UNDELIVERED PATIENT DISCHARGE INSTRUCTIONS CALL YOUR DOCTOR [...] pains, cramps, nausea,or diarrhea. Important Telephone Number: [facility] [phone] documented in this encounter Medications at Time [...] H&P Notes * Darío Tabor MD - 02/25/2015 2:42 PM CDT PGY-1 Obstetric H&P CC: Diarrhea/cramping lower abdominal pain/seeing spots HPI: 29 y.o. at 30w3d gestation. Datinwk Ultrasound; confirmed Estimated Date of Delivery: 05/03/15 care: is with Dr. Tamez ([facility]). Patient's is complicated by: Patient Active Problem [...] Salpingectomy in 2009 Currently, patient presents with diarrhea and cramping lower abdominal/pelvic pain which began thismorning. Reports 3 loose watery bowel movements this morning. Also has had nausea and vomiting, with 3 episodes of vomiting this morning, but this has been present throughout . Also reports seeing spots today. Has a mild headache, which she describes as pressure on both temples. Reports some epigastric pain. Also reports lightheadedness, which has been occurring throughout . Has had episodes of LOC during this , which has been evaluated by Dr. Tamez with Holter monitor (which was unremarkable), Echocardiogram (according to patient showed mild mitral valve prolapse), normal TSH/T4 and normal electrolytes. Last episode of LOC was 3-4 days ago. Denies any recent falls or trauma. Reports two contractions since this morning. negative LOF. negative VB. Movement positive x2. Review of Symptoms: No SOB/ CP/ CT No fevers/ chills No dysuria/ hematuria/ urinary urgency/ irritation Obstetrical History: OB History Para Term AB SAB TAB Ectopic Multiple Living 3 1 1 1 0 1 1 # Outcome Date GA Lbr Ray/2nd Weight Sex Delivery Anes PTL Lv 3 Current 2 Term 07/2012 39w0d 3685 g (8 lb 2 oz) Vag-Spont Y 1 Ectopic 2009 Medical History: Past Medical History Diagnosis Date ??? History of anemia ??? 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 Nausea/vomiting in ??? Abnormal Pap smear of cervix LEEP 2004 She denies history of hypertension, diabetes, asthma or bleeding disorders. Surgeries: Past Surgical History Procedure Laterality Date ??? Cervical leep Curent Medications: Prior to Admission medications Medication Sig Start Date End Date Taking? Authorizing Provider Doxylamine-Pyridoxine (DICLEGIS PO) Yes Anabel Heath MD ondansetron, disintegrating, (ZOFRAN ODT) 4 MG tablet Take 4 mg by mouth every 6 hours as needed for Nausea/Vomiting Allow tablet to dissolve on the tongue Anabel Heath MD Vit-Fe Fumarate-FA ( VITAMIN) 28-0.8 MG tablet Take 1 Tab by mouth once daily Anabel Heath MD metoclopramide (REGLAN) 10 MG tablet Take 10 mg by mouth 3 times daily before meals Anabel Heath MD Allergies: No Known Allergies Social History: Social History Smoking Status: Former Smoker Packs/Day: 0.00 Years: Quit date: 04/29/2010 Smokeless Status: Never Used Alcohol Use: No Drug Use: No Sexual Activity: Not on file Family History: No family history on file. No history of infants born with defects No history of family members with bleeding disorders No history of breast, ovarian, or uterine cancer Objective: Vitals: 02/25/15 1422 02/25/15 1425 02/25/15 1431 02/25/15 1435 BP: 122/66 118/59 119/61 119/82 Temp: Resp: Weight: non-stress test Baby A: baseline rate 125, moderate variability, reactive, no decels Baby B: baseline rate 125-130, moderate variability, reactive, no decels [place]: no ctx Physical Exam: General: alert, cooperative, no distress Lungs: clear to auscultation bilaterally Heart: regular rate and rhythm Abdomen: gravid, mildly tender in lower quadrants and epigastric region Female Genitalia: external genitalia and introitus normal; vagina and cervix normal by visualization Extremities: non-tender bilaterally, edema absent Sterile speculum exam: Exam for ROM: Pooling: negative, Nitrazine: negative, [place]: negative Wet Prep: no pathogens, WBCs negative Cervical Exam Dilation (cm): 0 Effacement: 25 Station: -3 Bedside ultrasound (TVUS with Dr. Cortes): Cervical Length: 3.14cm-3.83cm Current Lab Review: Hospital Encounter on 02/25/15 URINALYSIS ROUTINE W/REFLEX TO CULTURE Result Value Ref Range Color UA Yellow Straw, Yellow, Dark Yellow Clarity UA Clear Specific [place] UA 1.016 1.005-1.030 pH UA 7.0 5.0-8.0 pH Protein UA Negative Negative Blood UA Negative Negative Leukocyte UA Trace (Abnormal) Negative Nitrite UA Negative Negative Glucose UA Negative Negative Ketone UA Negative Negative Bili UA Negative Negative Urobilinogen UA 0.2 0.1-1.0 EU/dL WBC UA Auto 2-5 0-2, 2-5 # /hpf RBC UA Auto 2-5 0-2, 2-5 # /hpf Epithelial Cell UA Auto 2-5 0-2, 2-5 # /hpf Bacteria UA Auto 1+ (Abnormal) None seen Reflex Status Culture to follow Assessment/Plan: 29 y.o. @ 30w3d 1. Cramping lower abdominal pain/diarrhea 1. Cervix closed/25/-3 2. No ctx on toco 3. SSE negative for pathogens and infection 4. UA negative for UTI. Culture to follow 5. CL reassuring 6. Likely GI related, possibly viral gastroenteritis 7. AF, VS wnl 2. Headache/seeing spots 1. BP's wnl in triage 2. Patient declined medication for headache 3. Nausea/vomiting 1. Patient takes Diclegis and Zofran at home, has not taken in past 24 hours 2. Declined medication for nausea in triage, no vomiting in triage 3. Urine ketones negative 4. Lightheadedness, episodes of LOC 1. Has had extensive workup by Dr. Tamez 2. Orthostatics wnl in triage 5. FWB reassuring x2 6. F/u: at next appt with Dr. Tamez on Thursday 03/01 7. Dispo: discharged to home with PTL precautions Discussed with Dr. Nicole. Darío Tabor MD 02/25/2015 2:42 PM Associated attestation - Alfreda Nicole MD - 02/25/2015 5:32 PM CDT I have discussed this patient with Dr. Tabor and agree with the above notation. documented in this encounter Plan of Treatment Not on file documented as of this encounter Procedures Procedure Name Priority Date/Time Associated Diagnosis Comments IMAGING/RADIOLOGY/XR AY RESULTS ORDER 03/14/2015 3:35 PM VALVE SETTER URINALYSIS REFLEX MICROSCOPIC REFLEX CULTURE STAT 02/25/2015 2:45 PM CDT Dichorionic diamniotic twin (HCC) CULTURE URINE Routine 02/25/2015 2:45 PM CDT Dichorionic diamniotic twin (HCC) documented in this encounter Results * IMAGING/RADIOLOGY/XRAY RESULTS ORDER (03/14/2015 3:35 PM VALVE SETTER) Anatomical Region Laterality Modality Other Narrative 03/14/2015 3:35 PM VALVE SETTER Ordered by an unspecified provider. Scanned Document IMAGING * CULTURE URINE (02/25/2015 2:45 PM CDT) Culture No Growth (<1,000 CFU/mL) [place] 02/27/2015 9:07 AM VALVE SETTER [facility] Urine URINE SPECIMEN OBTAINED BY CLEAN CATCH PROCEDURE / Unknown Collection / Unknown 02/25/2015 2:45 PM CDT 02/25/2015 2:48 PM CDT Darío Tabor MD LAB - MICROBIOLOGY O RDERABLES [facility] [address] [place], [place] [address], [facility] [phone] * (ABNORMAL) URINALYSIS ROUTINE W/REFLEX TO CULTURE (02/25/2015 2:45 PM CDT) Color UA Yellow Straw, Yellow, Dark Yellow 02/25/2015 2:59 PM CDT [facility] Clarity UA Clear 02/25/2015 2:59 PM CDT [facility] Specific [place] UA 1.016 1.005 - 1.030 02/25/2015 2:59 PM CDT [facility] pH UA 7.0 5.0 - 8.0 pH 02/25/2015 2:59 PM CDT [facility] Protein UA Negative Negative 02/25/2015 2:59 PM CDT [facility] Blood UA Negative Negative 02/25/2015 2:59 PM CDT [facility] Leukocyte UA Trace(A) Negative 02/25/2015 2:59 PM CDT [facility] Nitrite UA Negative Negative 02/25/2015 2:59 PM CDT [facility] Glucose UA Negative Negative 02/25/2015 2:59 PM CDT [facility] Ketone UA Negative Negative 02/25/2015 2:59 PM CDT [facility] Bilirubin UA Negative Negative 02/25/2015 2:59 PM CDT [facility] Urobilinogen UA 0.2 0.1 - 1.0 EU/dL 02/25/2015 2:59 PM CDT [facility] WBC UA Auto 2-5 0-2, 2-5 # /hpf 02/25/2015 2:59 PM CDT [facility] RBC UA Auto 2-5 0-2, 2-5 # /hpf 02/25/2015 2:59 PM CDT [facility] Epithelial Cell UA Auto 2-5 0-2, 2-5 # /hpf 02/25/2015 2:59 PM CDT [facility] Bacteria UA Auto 1+(A) None seen 02/25/2015 2:59 PM CDT [facility] Reflex Status Culture to follow 02/25/2015 2:59 PM CDT [facility] Urine URINE SPECIMEN OBTAINED BY CLEAN CATCH PROCEDURE / Unknown Collection / Unknown 02/25/2015 2:45 PM CDT 02/25/2015 2:48 PM CDT Darío Tabor MD LAB - URINALYSIS ORD ERABLES [facility] [address] [place] [address] documented in this encounter Visit Diagnoses Diagnosis Dichorionic diamniotic twin (HCC) Twin , antepartum documented in this encounter Care Teams Instrumentation Engineer Relationship Specialty Start Date End Date Steve Davis MD [address] [place] [id number] PCP - General Family Medicine 11/14/14 03/29/15 documented as of this encounter
--- OUTSIDE RECORDS SUMMARY | 2024-04-29 22:43 | XMS_ITS | Encounter Summary ---
Author Organization [facility] Address [address] [place], [place] [address] [address] Care Team Providers Care Finished Hardware Erector Name Role Phone Steve Davis MD Primary Care Provider [phone] Reason for Visit * Auth/Cert Specialty Diagnoses / Procedures Referred By Contac t Referred To Contact Obstetrics and Gynecology Procedures SECTION EMERGENCY [facility] 6w Mother Baby [address] [place] [address] Referral ID Status Reason Start Date Expiration Date Visits Re quested Visits Authorized [id number] 03/31/2015 09/27/2015 1 Encounter Details Date Type Department Care Team (Late st Contact Info) Description 03/30/2015 8:17 PM SENIOR PREMIUM AUDITOR Anesthesia Event [facility] 5 L[address] [place], [place] [id number] Yasmani Ogden MD [address] [facility] [place] [address] Latonya Arteaga, IV RN-HOTEL ASSOCIATE [address] [facility] [place] [address] Anesthesia Record Procedure Summary Procedure Name Responsible Anesthesiologist Anesthesia Start Time Anesthesia Stop Time EPIDURAL BLOCK Yasmani Ogden MD 03/30/1503/30 2216 Events Date Time Event Comment 03/30/2015 2017 An Start 2017 PT Reassessment Patient and Vital Signs reassessed prior to induction. 2020 Test Dose 2023 Bolus Dose 2026 Elect Sign The providers l isted as staff are the responsible providers for the case. 2101 2119 Epidural to 2119 An Start Data 2119 PT Reassessment Patient and Vital Signs reassessed prior to induction. 2124 Uterine Incision 2124 An Induction 2124 An Intubation 2125 Baby Delivered Baby girl x2 2125 Baby Delivered 2207 Extubation 2209 an stop data 2209 Elect Sign The providers l isted as staff are the responsible providers for the case. 2209 ANPTO2 2215 Handoff Handoff include d discussion of Intraoperative anesthetic management, issues, concerns and expectations/plans for the early post-procedure period. There was an opportunity for questions and the receiving team acknowledged understanding of the handoff. 2215 An Stop 2215 Quick Note Pt awake comfor table Meds Name Total fentaNYL (SUBLIMAZE) 0.05 mg/ml injectio n 350 mcg lidocaine 2% - epinephrine (PF) 1:200,00 0 injection 15 mL lidocaine 1% - epinephrine 1:200,000 inj ection 3 mL morphine PF (DURAMORPH) 0.5 mg/mL inject ion 5 mg phenylephrine 40 mcg/ml 800 mcg propofol (DIPRIVAN) injection 200 mg succinylcholine (ANECTINE) 20 mg/ml inje ction 120 mg midazolam (VERSED) 1 mg/mL injection 2 m g ceFAZolin (ANCEF) 2 g IVPB 2 g morphine 10 mg/ml injection 10 mg fentanyl 2 mcg/ml and ropivicaine 0.2% i n 0.9% nacl Epidural 0 mL lactated ringers infusion 1,000 mL oxytocin (PITOCIN) 30 units/500 ml infus ion (60 rocio-units/ml) 600 mL * Agents Name Insp. N2O Exp. Sevoflurane O2 Insp. Sevoflurane * Blood No blood administrations on file. Lines, Drains, and Airways Type Details Placement Removal Peripheral IV Date: 03/30/15; Time : 1954; Placed By: RIYA Umaña; Tolerance: Well 03/30/151954 by Calra Rowell RN 04/01/151153 by Vivian Lynch RN Epidural Date: 03/30/15; Time : 2020; Placed By: Gregg Arteaga lozenge dough mixer 03/30/152020 by Latonya Arteaga APRN-HOTEL ASSOCIATE 04/03/152217 by Generic, Auto Release Urethral Catheter 03/30/15; 2107; tanvi johnson rn; Well; 03/31/15; 1141 03/30/152107 by Xuan Billy RN 03/31/15 114 by Yola Mueller RN ETT Date: 03/30/15; Time : 2124; Placed By: Gregg Arteaga CRNA; Vent: mask not attempted; Induction: Cricoid pressure, Rapid Sequence; Blade Type: Dwayne; Blade Size: 3; Laryngoscopy View: Grade 1 (full cords); Intubation Adjuncts: Stylet; Placement: Oral; Tube Type: Cuffed-inflated; Tube Size(FR): 7 FR; Depth of Insertion: 21 CM; Measured From: lips; Cuff Infated: Air; Cuff Vol(mL): 4 mL; Verified By: Direct visualization, Bilateral breath sounds, Chest Auscultation, CO2 Monitor 03/30/152124 by Latonya Arteaga APRN-CRNA 03/30/152207 by Latonya Arteaga APRN-CRNA RETIRED Procedural Site 03/30/15; 2124; Lower; Abdomen; 04/03/15; 221703/30/152124 by Xuan Billy RN 04/03/152217 by Generic, Auto Release documented in this encounter Social History Tobacco Use Types Packs/Day Years [...] No 03/30/2015 documented as of this encounter Progress Notes * Gladis Sharif APRN-CRNA - 03/31/2015 7:50 AM CST ANESTHESIA POSTPROCEDURE EVALUATION Oanh Ortiz is a 29 y.o. female Temp: 36.7 ??C Pulse: 94 Resp: 14 BP: 134/73 mmHg SpO2: 96 % Pain Rating Score #1: 5 Anesthesia Type: general Mental status: sufficiently recovered from acute administration of anesthesia to participate in theevaluation. Level of consciousness: awake No numbness, tingling or visual disturbances present. General appearance: well-appearing Respiratory function: natural airway. Cardiac: stable Pain: comfortable/acceptable PONV: None Patient may be released from anesthesia care. Perioperative Complications: No value filed. ASA/AQI Tracking Events: No value filed. OR PREMIUM AUDITOR documented in this encounter Procedure Notes * Latonya Arteaga, IV RN-HOTEL ASSOCIATE - 03/30/2015 9:04 PM CSTAssociated Order(s): NEURAXIAL BLOCK NEURAXIAL BLOCK Patient Location: OB Pre Procedure Indication: labor analgesia Anticoagulation /Antithrombosis Status Confirmed: Yes Preanesthetic Checklist: patient identified, IV checked, site marked, risks and benefits discussed,surgical consent verified, monitors and equipment checked, pre-op evaluation done, timeout performed, informed consent obtained and questions answered / anesthesia plan accepted Monitors: BP and Pulse Ox Patient Condition: awake Patient Position: sitting Procedure Block Performed: epidural Prep: Betadine Sterile Field: mask, cap/hat, sterile field established and sterile gloves Approach: midline Skin Numbed with: lidocaine 1% Epidural Needle Type: Tuohy Needle Gauge: 18 Needle Length: 3.5 in Placement Site: L3-L4 Number of Attempts: 1 Loss of ResistanceTechnique: air Loss of Resistance: 8 cm Catheter Length at Skin: 15 cm CSF Aspirated from Catheter: negative Test Dose: lidocaine 1.5% with 1 200 k epinephrine 3 ml at 03/30/2015 8:21 PM Local Anesthetic: lidocaine 2% 5 ml Epidural additive: fentanyl Events CSF return negative injection not painful no paresthesia Degree of Difficulty: none Position Post Procedure: left uterine displacement Vital signs monitored and stable throughout. See Anesthesia Intraop record for details. Block Start Time: 03/30/2015 8:21 PM Block End Time: 03/30/2015 8:21 PM Block Performed by: Gregg Arteaga CRNA Notes: Called to patients room. Epidural placed without complications. Negative heme, Neg, CSF + ALYSSA x 1 attempt. Pt getting comfortable OR PREMIUM AUDITOR documented in this encounter Consult Notes * Latonya Arteaga APRN-CRNA - 03/30/2015 8:15 PM CST Pre-anesthesia Evaluation Procedure(s): EPIDURAL BLOCK Vital Signs: Temp: 36.7 ??C (03/30 2000) Resp: 18 (03/30 245) BP: 148/76 mmHg (03/30 2043) SpO2: 98 % (03/30 2024) BMI: Estimated body mass index is 40.21 kg/(m^2) as calculated from the following: Height as of an earlier encounter on 03/30/15: 5' 6 (1.676 m). Weight as of an earlier encounter on 03/30/15: 249 lb (112.946 kg). History: Past Medical History Diagnosis Date ??? History of anemia ??? 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 Nausea/vomiting in ??? Abnormal Pap smear of cervix LEEP 2004 ??? Multiple gestation Past Surgical History Procedure Laterality Date ??? Cervical leep 2009 ??? Lap salpingostomy 2009 reports that she quit smoking about 4 years ago. She has never used smokeless tobacco. She reports that she does not drink alcohol or use illicit drugs. Allergies: has No Known Allergies. Medications: Home Medications for Outpatients: No current outpatient prescriptions on file. Home Medications for Inpatients: Prescriptions prior to admission Medication Sig Dispense Refill ??? nudmogquuc-qialklvbgopej-hmiasifa (FIORICET) 50-325-40 MG tablet Take 1 Tab by mouth every 4 hours as needed for Headache or Migraine 20 Tab 0 ??? ferrous sulfate 325 (65 FE) MG tablet Take 1 Tab by mouth 2 times daily with morning and evening meal 60 Tab 2 ??? acetaminophen (TYLENOL) 500 MG tablet Take 500 mg by mouth every 4 hours as needed for Fever orPain Maximum allowable Acetaminophen amount = 4 Grams (4000 mg) / 24 hours. ??? ondansetron, disintegrating, (ZOFRAN ODT) 4 MG tablet Take 4 mg by mouth every 6 hours as needed for Nausea/Vomiting Allow tablet to dissolve on the tongue ??? Vit-Fe Fumarate-FA ( VITAMIN) 28-0.8 MG tablet Take 1 Tab by mouth once daily ??? Doxylamine-Pyridoxine (DICLEGIS PO) ??? metoclopramide (REGLAN) 10 MG tablet Take 10 mg by mouth 3 times daily before meals Inpatient Medications: Current Facility-Administered Medications Medication Dose Route Frequency Provider Last Rate Last Dose ??? lactated ringers infusion ADS Med ??? lactated ringers infusion Intravenous Continuous Primo Melendez MD ??? terbutaline (BRETHINE) injection 0.25 mg 0.25 mg Intravenous PRN Primo Melendez MD ??? oxytocin (PITOCIN) 30 units in 500 ml normal saline IV solution 125-1,000 rocio-units/min Intravenous CONTINUOUS PRN Primo Melendez MD ??? lidocaine (XYLOCAINE MPF) 1 % injection Infiltration PRN Primo Melendez MD ??? penicillin G potassium IVPB 5 Million Units 5 Million Units Intravenous Once Primo Melendez MD Followed by ??? [START ON 03/31/2015] penicillin G pot in dextrose IVPB 3 Million Units 3 Million Units Intravenous q4h Primo Melendez MD ??? ondansetron (ZOFRAN) injection 4 mg 4 mg Intravenous q6h PRN Primo Melendez MD Or ??? metoclopramide (REGLAN) injection 10 mg 10 mg Intravenous q6h PRN Primo Melendez MD Or ??? prochlorperazine (COMPAZINE) suppository 25 mg 25 mg Rectal q12h PRN Primo Melendez MD ??? fentanyl 2 mcg/ml and ropivicaine 0.2% in nacl ADS Med Physical Exam: NPO status: continuous clear liquids Oriented to person, place and time Airway: II Neck ROM: full Dental exam findings: normal/ok Pulmonary exam: breath sounds CTA Heart sounds: S1 S2 Spinal Alignment: symmetrical Negative for anesthesia complications Plan for Anesthesia: ASA Score: 2. Anesthesia plan: epidural Planned postop destination: OB Anesthesia plan, risks and benefits discussed with patient Anesthesia consent: obtained Plan accepted yes Discussed anesthesia plan with: anesthesiologist. Recent Labs Component Name 03/30/15 0422 ABO A RHTYPE Positive Recent Labs Component Name 03/29/15 0924 03/09/15 1733 03/09/15 0357 03/09/15 0002 03/08/15 1320 03/07/15 1706 SODIUM 140 - 141 140 139 137 POTASSIUM 3.2* - 3.2* 3.2* 2.9* 2.8* CHLORIDE 109* - 110* 109* 107 107 CO2 20* - 22 25 24 23 BUN 2* - 2* 2* 2* 2* CREATININE 0.43* 0.41* 0.41* 0.45* 0.58 0.49* GLUCOSE 87 - 88 87 86 80 CALCIUM 8.1* - 8.0* 8.0* 8.3* 8.7 ALBUMIN 2.2* - - - 2.2* 2.4* ALKPHOS 132* - - - 132* 141* ALT 14 - - - 21 21 AST 13 - - - 30 28 TBIL 0.3 - - - 0.4 0.3 TPROT 5.6* - - - 5.8* 6.1* EGFR >60 - >60 >60 >60 >60 OR PREMIUM AUDITOR documented in this encounter Plan of Treatment Not on file documented as of this encounter Procedures Procedure Name Priority Date/Time Associated Diagnosis Comments NEURAXIAL BLOCK Routine 03/30/2015 9:04 PM SENIOR PREMIUM AUDITOR documented in this encounter Results * NEURAXIAL BLOCK (03/30/2015 9:04 PM SENIOR PREMIUM AUDITOR) Narrative Latonya Arteaga APRN-CRNA - 03/30/2015 9:04 PM SENIOR PREMIUM AUDITOR Latonya Arteaga APRN-CRNA ? 03/30/2015 ??9:04 PM NEURAXIAL BLOCK Patient [...] Antonio Perez MD GENERAL ANESTHESIA O RDERABLES documented in this encounter Visit Diagnoses Not on filedocumented in this encounter Administered Medications Inactive Administered Medications - up to 3 most recent administrations Medication Order MAR Action Action Date Dose Rate Site ceFAZolin 2 g (ANCEF) IVPB PRN, Starting on Sat03/30/15 at 2126, Until Sat03/30/15 at 2224, Anesthesia Intra-op $ Given 03/30/2015 9:27 PM SENIOR PREMIUM AUDITOR 2 g fentaNYL (SUBLIMAZE) injection PRN, Starting on Sat03/30/15 at 2039, Until Sat03/30/15 at 2224, Anesthesia Intra-op $ Given 03/30/2015 9:27 PM SENIOR PREMIUM AUDITOR 250 mcg $ Given 03/30/2015 8:40 PM SENIOR PREMIUM AUDITOR 100 mcg fentanyl 2 mcg/ml and ropivicaine 0.2% in 0.9% nacl Epidural at 13 mL/hr, Epidural, CONTINUOUS, Starting on Sat03/30/15 at 2145, Until Aurea 03/31/15 at 0148, Demand Dose: 3 mL Lock out: 20 minutes 1 hour limit: 22 mL $ New Bag/Syringe 03/30/2015 8:27 PM SENIOR PREMIUM AUDITOR 14 mL/hr lactated ringers infusion at 125 mL/hr, Intravenous, CONTINUOUS, Starting on Sat03/30/15 at 2045, Until Aurea 03/31/15 at 0148, Start IV with 18 gauge angiocath. $ New Bag/Syringe 03/30/2015 9:57 PM SENIOR PREMIUM AUDITOR $ New Bag/Syringe 03/30/2015 9:20 PM SENIOR PREMIUM AUDITOR lidocaine 1% - epinephrine 1:200,000 injection PRN, Starting on Sat03/30/15 at 202, Until Sat03/30/15 at 2224, Anesthesia Intra-op $ Given 03/30/2015 8:21 PM SENIOR PREMIUM AUDITOR 3 m L lidocaine 2% - epinephrine 1:200,000 injection PRN, Starting on Sat03/30/15 at 2024, Until Sat03/30/15 at 2224, Anesthesia Intra-op $ Given 03/30/2015 9:20 PM SENIOR PREMIUM AUDITOR 10 mL $ Given 03/30/2015 8:24 PM SENIOR PREMIUM AUDITOR 5 mL midazolam (VERSED) injection PRN, Starting on Sat03/30/15 at 2129, Until Sat03/30/15 at 2224, Anesthesia Intra-op $ Given 03/30/2015 9:29 PM SENIOR PREMIUM AUDITOR 2 m g morphine injection PRN, Starting on Sat03/30/15 at 2152, Until Sat03/30/15 at 2224, Anesthesia Intra-op $ Given 03/30/2015 10:00 PM SENIOR PREMIUM AUDITOR 7 mg $ Given 03/30/2015 9:52 PM SENIOR PREMIUM AUDITOR 3 mg morphine PF (DURAMORPH) injection PRN, Starting on Sat03/30/15 at 2142, Until Sat03/30/15 at 2224, Anesthesia Intra-op $ Given 03/30/2015 9:46 PM SENIOR PREMIUM AUDITOR 2 m g $ Given 03/30/2015 9:42 PM SENIOR PREMIUM AUDITOR 3 mg oxytocin (PITOCIN) 30 units in 500 ml normal saline IV solution CONTINUOUS PRN, Starting on Sat03/30/15 at 2126, Until Sat03/30/15 at 2224, Anesthesia Intra-op $ New Bag/Syringe 03/30/2015 9:45 PM SENIOR PREMIUM AUDITOR $ New Bag/Syringe 03/30/2015 9:26 PM SENIOR PREMIUM AUDITOR phenylephrine 40 mcg/ml custom syringe PRN, Starting on Sat03/30/15 at 2133, Until Sat03/30/15 at 4, Anesthesia Intra-op $ Given 03/30/2015 9:50 PM SENIOR PREMIUM AUDITOR 200 mcg $ Given 03/30/2015 9:48 PM SENIOR PREMIUM AUDITOR 200 mcg $ Given 03/30/2015 9:34 PM SENIOR PREMIUM AUDITOR 200 mcg propofol (DIPRIVAN) injection PRN, Starting on Sat03/30/15 at 5, Until Sat03/30/15 at 2224, Anesthesia Intra-op $ Given 03/30/2015 9:25 PM SENIOR PREMIUM AUDITOR 200 mg succinylcholine (ANECTINE) injection PRN, Starting on Sat03/30/15 at 2124, Until Sat03/30/15 at 4, Anesthesia Intra-op $ Given 03/30/2015 9:25 PM SENIOR PREMIUM AUDITOR 120 mg documented in this encounter Care Teams Finished Hardware Erector Relationship Specialty Start Date End Date Steve Davis MD [address] [place] [address] PCP - General Family Medicine 03/30/15 documented as of this encounter
--- OUTSIDE RECORDS SUMMARY | 2024-04-29 22:43 | XMS_ITS | Encounter Summary ---
Author Organization [facility] Address [address] [place] [address] Care Team Providers Care Emergency Preparedness Coordinator Name Role Phone Steve Davis MD Primary Care Provider [phone] Reason for Visit * Reason Comments Nausea VOMITING DURING * Auth/Cert - Closed Specialty Diagnoses / Procedures Referred By Contac t Referred To Contact Referral ID Status Reason Start Date Expiration Date Visits Re quested Visits Authorized [id number] Closed 1 1 Encounter Details Date Type Department Care Team (Latest Contact Info) Description 03/08/2015 12:07 PM INDUSTRIAL RELATIONS COUNSELOR - 03/09/2015 7:55 PM INDUSTRIAL RELATIONS COUNSELOR Hospital Encounter [facility] ANTEPARTUM/MOTHER BABY [address] [place] [address] Marciano Tamez MD [address] [id number] Obstetrics Discharge Disposition: Home or Self Care [...] Sign Reading Time Taken Comments Blood Pressure 101/53 03/09/2015 4:00 PM INDUSTRIAL RELATIONS COUNSELOR Pulse 86 03/09/2015 4:00 PM INDUSTRIAL RELATIONS COUNSELOR Temperature 37.1 ??C (98.8 ??F) 03/09/2015 4:00 PM CS T Respiratory Rate 20 03/09/2015 4:00 PM INDUSTRIAL RELATIONS COUNSELOR Oxygen Saturation 99% 03/09/2015 4:00 PM INDUSTRIAL RELATIONS COUNSELOR Inhaled Oxygen Concentration - - Weight 106.1 kg (234 lb) 03/08/2015 12:13 PM INDUSTRIAL RELATIONS COUNSELOR Height 167.6 cm (5' 6 ) 03/08/2015 12:13 PM INDUSTRIAL RELATIONS COUNSELOR Body Mass Index 37.77 03/08/2015 12:13 PM INDUSTRIAL RELATIONS COUNSELOR documented in this encounter Functional Status Functional Status Response Date of Assess ment Is person deaf or have serious hearing difficult y? No 03/08/2015 Is person blind or have serious difficulty seein g? No 03/08/2015 Does person have serious dif ficulty walking/climbing stairs? No 03/08/2015 Does person have difficulty dressing/bathing? No 03/08/2015 Does person have difficulty doing errands alone? No 03/08/2015 Cognitive Status Response Date of Assessm ent Does person have difficulty concentrating/remembering/making decisions? No 03/08/2015 documented as of this encounter Discharge Summaries * Clara Saucedo MD - 03/30/2015 5:47 AM CST Antepartum Discharge Summary Date of Admission: 03/08/2015 Date of Discharge: 03/09/2015 Admission Diagnosis: 29 y.o. at 31w6d gestation with hyperemesis and hypokalemia Discharge Diagnosis: IUP at 32w0d Service: [facility] Antepartum Service History: Oanh Ortiz is a 29 y.o. at 31w6d whose care was with [facility]. The patientpresented with nausea, vomiting and hypokalemia was complicated by: Patient Active Problem List Diagnosis [...] ectopic 11/14/2014 Salpingectomy in 2009 Hospital Course: Potassium improved after IV replacement. Patient did well on scheduled antiemetics. She had some elevated pressures on admission and a 24 hour urine protein was 374, giving diagnosis of mild pre-eclampsia. She did not require blood pressure medication. She was discharged home in stable condition on hospital day 2. Results: No results for input(s): ABORH in the last 65723 hours. Recent Labs Component Name 03/30/15 0422 03/29/15 0924 03/08/15 1617 WBC 10.4 8.2 9.7 HGB 10.7* 10.0* 9.1* HCT 33.1* 30.3* 28.3* PLTCOUNT 164 153 183 Discharge Vitals: BP 101/53 mmHg Pulse 86 Temp(Src) 98.8 ??F Resp 20 Wt 234 lb (106.142 kg) BMI 37.79 kg/m2 Discharge Diagnosis: mild pre-eclampsia Dispostion: Home Followup: with [facility] Continue/start these medications at home: Discharge Medication List As of 03/09/2015 8:05 PM START taking these medications Instructions Authorizing Provider ferrous sulfate 325 (65 FE) MG tablet Take 1 Tab by mouth 2 times daily with morning and evening meal Clara Saucedo potassium chloride 10 MEQ tablet Commonly known as: KLOR-CON Take 1 Tab by mouth 2 times daily for 5 days Elissa Saucedobeth CONTINUE taking these medications Instructions Authorizing Provider acetaminophen 500 MG tablet Commonly known as: TYLENOL Take 500 mg by mouth every 4 hours as needed for Fever or Pain Maximum allowable Acetaminophen amount = 4 Grams (4000 mg) / 24 hours. DICLEGIS PO metoclopramide 10 MG tablet Commonly known as: REGLAN Take 10 mg by mouth 3 times daily before meals ondansetron (disintegrating) 4 MG tablet Commonly known as: ZOFRAN ODT Take 4 mg by mouth every 6 hours as needed for Nausea/Vomiting Allow tablet to dissolve on the tongue vitamin 28-0.8 MG tablet Take 1 Tab by mouth once daily Discharge Instructions: Discharge Procedure Orders Why you were hospitalized Order Specific Question Answer Comments Your discharge diagnosis is Mild preeclampsia [[id number]] Contact your provider Call your Packaging Line Attendant if you have questions or concerns, or for any of the following issues: -- for a temperature higher than 100.4 F -- for pain that gets worse or does not get better after taking your pain medication(s) as directed -- if you have severe cramping or increased vaginal bleeding -- if you have a gush or trickling of fluid from your vagina -- if you experience new onset headaches, visual changes or increased abdominal pain not relieved with pain medication No special diet needed Resume your normal home diet as tolerated. Eat well-balanced meals that include foods from all of the food groups. Drink plenty of fluids It is important that you stay well hydrated. You should drink at least eight to ten 8-ounce glassesof water per day. Activity instructions If you have any of the following symptoms, please notify your doctor as soon as you can: 1. Severe and unusual headache, not relieved with Tylenol. 2. Visual changes, including blurry vision, spots in your eyes, tunnel vision or flashing lights. 3. Significant nausea, vomiting, heartburn, pain in the top right area of your abdomen or above your belly button. These can be symptoms related to elevated blood pressure in (Preeclampsia). You and your baby may need to be monitored and other lab work may need to be ordered if you develop these symptoms above. Follow up with provider Order Specific Question Answer Comments Follow Up Instructions: You will need twice weekly testing, you will need a BPP once a week and an NST twice a week Count kicks Count your baby's movements every day for 2 hours, you should feel at least 10 movements (kicks). Once you have felt 10 movements, you can stop counting. As you are counting movements, please keep in mind: A. Perform Kick Counts at your baby's normal active time B. Perform in a side-lying position without interruptions C. Eat a snack within an hour of counting. D. If you do not reach 10 movements in 2 hours call your provider for additional instructions Clara Saucedo MD 03/30/2015 5:47 AM STRIAL RELATIONS COUNSELOR documented in this encounter Medications at Time of Discharge Medication Sig Dispensed Refills Start Date End Date acetaminophen (TYLENOL) 500 MG tablet Take 500 mg by mouth every 4 hours as needed for Fever or Pain Maximum allowable Acetaminophen amount = 4 Grams (4000 mg) / 24 hours. ferrous sulfate 325 (65 FE) MG tablet Take 1 Tab by mouth 2 times daily with morning and evening meal 60 Tab 2 03/09/2015 Vit-Fe Fumarate-FA ( VITAMIN) 28-0.8 MG tablet Take 1 Tab by mouth once daily Doxylamine-Pyridoxine (DICLEGIS PO) 04/03/2015 metoclopramide (REGLAN) 10 MG tablet Take 10 mg by mouth 3 times daily before meals 015 ondansetron, disintegrating, (ZOFRAN ODT) 4 MG tablet Take 4 mg by mouth every 6 hours as needed for Nausea/Vomiting Allow tablet to dissolve on the tongue 04/03/2015 potassium chloride (KLOR-CON) 10 MEQ tablet Take 1 Tab by mouth 2 times daily for 5 days 10 Tab 0 03/09/2015 03/14/2015 documented as of this encounter Progress Notes * Rosalva Wei LPN - 03/09/2015 7:00 PM CST Resting in bed and up to the bathroom, gait slow and steady. Pt. Tolerating po fluids and reg diet,intake and output maintained. ivf's maintained at 125cc/hr, the nurse hung her potassium ivpb, and the iv went bad, pt. Stuck several times, no luck. ok with no iv access Potassium order changed to po, pt. Tolerated the potassium pill with each of her meals. Pt. Denies any distress. 24 hour urine collection completed and sent to the lab. Daily efm shows baby a baby b acels with irritability. Pt. Denies any concerns. at the bedside. Pt. Awaiting lab results. STRIAL RELATIONS COUNSELOR * Alla Chappell RN - 03/09/2015 2:01 PM CST 03/09/15 1345 Clinician Communication/Provider Notification Name of Clinician Notified: Jonnydeya Role: OB Resident Notification Method: Called/Phoned Notification Reason: Condition Update (IV painful & unable to restart. ) Action Orders Received Comments: Will change IV potassium to oral STRIAL RELATIONS COUNSELOR * Meli Shook, RD/LD - 03/09/2015 11:11 AM CST Initial Nutrition Assessment A: Med/Surg History and Clinical Diagnoses: IUP 32 1/7 weeks, hypokalemia 2/2 N/V, hyperemesis Height: 5' 6 (167.6 cm) Wt Readings from Last 5 Encounters: 03/08/15 234 lb (106.142 kg) 03/07/15 232 lb (105.235 kg) 03/04/15 232 lb (105.235 kg) 02/25/15 231 lb (104.781 kg) 11/14/14 217 lb 12.8 oz (98.793 kg) Prepregnancy Weight: 238#, Prepregnancy BMI: 38.49 kg/(m^2) severe obesity class II IBW: 130# 180% IBW prepregnancy, BMI: Body mass index is 37.79 kg/(m^2). BMI Range: Severely Obese Class 2 Unintentional weight change: weight loss due to N/V with lowest reported weigh this of 205# Current diet order: Regular P.O.Intake for the past 48 hrs: % Meal Taken Av % Min: 100 % Max: 100 % % Oral Supplement Intake: No Data Recorded Food Allergies: No known food allergies GI Concerns: Nausea;Vomiting Chewing/Swallowing: None Pain affecting intake: No Estimated Needs: KCAL: 3823-1528 (15-18 kcal/kg prepreg wt + 400) Protein (g): 93 (1.3 g/kg adj IBW) Fluid (ml): 2315 Needs based on: Kcal/kg- (Comment) Recommended Access Route: PO Labs: Recent Labs Component Name 03/09/15 0357 03/08/15 1320 SODIUM 141 - 139 POTASSIUM 3.2* - 2.9* CHLORIDE 110* - 107 CO2 22 - 24 BUN 2* - 2* CREATININE 0.41* - 0.58 GLUCOSE 88 - 86 CALCIUM 8.0* - 8.3* ALBUMIN - - 2.2* ALKPHOS - - 132* ALT - - 21 AST - - 30 TBIL - - 0.4 TPROT - - 5.8* EGFR >60 - >60 - = values in this interval not displayed. Recent Labs Component Name 03/09/15 0357 03/07/15 1706 PHOS 2.4* 2.7 PERTINENT MEDICATIONS FOR CURRENT ENCOUNTER: ?? SCHEDULED MEDICATIONS: ?? 0.9% NaCl injection 10 mL, Intracatheter, q8h ?? docusate sodium (COLACE) capsule 100 mg, Oral, BID ?? doxylamine (UNISOM) tablet 12.5 mg, Oral, QDAY AFTER BREAKFAST ?? doxylamine (UNISOM) tablet 25 mg, Oral, QDAY AFTER DINNER ?? iron polysaccharides (NIFEREX 150) capsule 150 mg, Oral, QDAY ?? pyridoxine (VITAMIN B-6) tablet 50 mg, Oral, AT BEDTIME ?? [COMPLETED] acetaminophen (TYLENOL) tablet 1,000 mg, Oral, Once ?? [COMPLETED] iron sucrose (VENOFER) 300 mg in 0.9% NaCl 100 mL infusion, Intravenous, Once ?? [COMPLETED] lactated ringers 1,000 mL with potassium chloride 40 mEq infusion, Intravenous, BID ?? [COMPLETED] potassium chloride 20 meq/ 100 ml infusion, Intravenous, Once ?? [COMPLETED] potassium chloride infusion 40 mEq, Intravenous, Once ?? CONTINUOUS MEDICATIONS: ?? lactated ringers infusion, Intravenous, Continuous Skin/Wound: intact Last BM: was WELLNESS PROGRAM COORDINATOR ASSESSMENT: Pt screened at potential nutrition risk 2/2 weight loss in 2/2 hyperemesis and persistentN/V. Pt reports lowest weight of 205#, but has gained back 29# since her lowest weight, but remains4# under prepregnancy weight. [place] weight gain for obese mother at term is 11-20#. Pt supplementedwith niferex, vitamin B6, and K+. Had venofer administered due to low H/H. Electrolytes abnormal 2/2 N/V. Pt states she is tolerating PO now and declines snacks or supplements. Will continue to monitor diet tolerance, intake, and weight. Will follow per protocol. D: Nutrition Diagnostic Statement: (NI-2.1) Inadequate oral food/beverage intake related to: N/V inpregnancy as evidenced by : weight loss in with inadequate weight gain for GA. I: Nutrition Intervention: (ND-1) Meals and snacks: continue with regular diet as tolerated Education needed: None Education provided Following at high nutritional risk. Nutrition recommendation: agree with current nutrition order GOALS: M/E: Nutrition Goal: Intake will be improved to 75% or greater of meals/snacks Nutrition Goal Timeframe: Throughout stay Meli Shook MS, RD/LD 03/09/2015 11:11 AM Beeper [phone] STRIAL RELATIONS COUNSELOR * Clara Saucedo MD - 03/09/2015 9:15 AM CST R2 Antepartum Progress Note Date: 03/09/2015 Hospital Day: 1 Subjective: Oanh Ortiz is a 29 y.o. G 3 P 1 A 1 at 32w1d weeks gestation. Patient reports no bleeding,cramping/contractions or leaking of fluid. Movement: normal. Objective: BP 107/69 mmHg Pulse 80 Temp(Src) 97.3 ??F Resp 20 Wt 234 lb (106.142 kg) BMI 37.79 kg/m2 Temp (24hrs) Max:98.8 ??F Systolic (30hrs), Av mmHg, Min:107 mmHg, Max:149 mmHg Diastolic (30hrs), Av mmHg, Min:56 mmHg, Max:82 mmHg Intake/Output Summary (Last 24 hours) at 03/09/15 0915 Last data filed at 03/09/15 0447 Gross per 24 hour Intake 2791 ml Output 1250 ml Net 1541 ml Physical Exam: General: alert, cooperative, no distress Lungs: non labored respirations Heart: regular rate Abdomen: gravid, NT Extremities: normal, non-tender bilaterally NST: see separate procedure note TOCO: Problem List: Patient Active Problem List Diagnosis ??? Dichorionic [...] Maternal iron deficiency anemia affecting , antepartum Assessment: 29 y.o. at 32w1d 1. Hypokalemia likely secondary to N/V 1. K+ 2.9>3.2 after IV replacement 2. No emesis overnight 2. Hyperemesis Gravidarum 1. Diclegis scheduled 2. Reglan/zofran PRN 3. Elevated Blood Pressures in [facility] 1. Normal pressures this am 2. Reports mild headache but otherwise asymptomatic 3. Pr/Cr ratio 0.19 4. 24 hr urine ordered 4. Hx of fainting and lightheadedness this 1. CBC yesterday with Hgb 9.6 2. EKG with normal sinus rhythm 3. S/p Cardiology work up, normal per pt 4. S/p Echo 5. Will get venofer today 5. FWB- reassuring 6. Dispo: Antepartum, possible d/c after 24 hour urine collection Clara Saucedo MD 03/09/2015 9:15 AM patient stable STRIAL RELATIONS COUNSELOR Associated attestation - Marciano Tamez MD - 03/09/2015 11:06 AM INDUSTRIAL RELATIONS COUNSELOR MFM Attending I have seen, evaluated and examined the patient with Dr. Ellis. I agree with the above assessment, exams and plans. Feeling better this AM. Nausea resolved. Felisha PO For Venofer and testing this AM Exam: BP 107/69 mmHg Pulse 80 Temp(Src) 97.3 ??F Resp 20 Wt 234 lb (106.142 kg) BMI 37.79 kg/m2 Gen - NAD Abd - NT Ext - NT, no edema FHTs - pending [place] - pending I have the following to add to the plan: if testing is stable then could be dc'ed. Has f/u established. Marciano Tamez MD M * Toyin Montoya RN - 03/09/2015 7:35 AM CST Shift summary: Vitals wdl. Denies nausea, no emesis overnight. Denies contractions, cramping, back pain, pelvic pressure, or vaginal leakage, bleeding, or discharge. Received tylenol 1g PO for pelvicdiscomfort; pain relieved. Continues on her 24 hr urine collection. Denies any needs at this time; currently observed asleep in bed. STRIAL RELATIONS COUNSELOR * Toyin Montoya RN - 03/09/2015 7:34 AM CST Problem: Fluid and Electrolyte Imbalance Goal: Fluid and electrolyte balance are achieved/maintained Outcome: Ongoing Received a total of 60 meq KCl replacement with IVFs (LR). Also received iron this morning. STRIAL RELATIONS COUNSELOR * Rosalva Wei LPN - 03/08/2015 8:24 PM CST Problem: Fluid and Electrolyte Imbalance Goal: Fluid and electrolyte balance are achieved/maintained Outcome: Ongoing Pt. Tolerating po fluids and reg diet Intake and output maintained ivf's maintained 24 hour urine collection started 03/08/15 1722 STRIAL RELATIONS COUNSELOR * Rosalva Wei LPN - 03/08/2015 7:00 PM CST Pt. Transferred [facility], per w/c. Pt. Resting comfortably in bed with her mother at the bedside. Pt. Tolerating po fluids and reg diet, intake and output maintained. 24 hour urine collection started at 1722. Pt. Given reglan for mild nausea, pt. States relief. ivf's infusing. Pt. Denies any distress or concerns. Pt. States positive movement for a And B, pt. Denies any contractions. Will cont. To monitor pt. STRIAL RELATIONS COUNSELOR * Elmira Prater RN - 03/08/2015 4:48 PM CST Problem: Fluid and Electrolyte Imbalance Goal: Fluid and electrolyte balance are achieved/maintained Outcome: Ongoing Oanh admitted for fluid / electrolyte imbalance potassium level 2.9. Orders ivfs lr with 40 meqpotasium at 125 mls/ hr STRIAL RELATIONS COUNSELOR documented in this encounter H&P Notes * Elmira Ellis MD - 03/08/2015 12:53 PM CST R1 Obstetric H&P CC: Weakness, nausea and vomiting HPI: 29 y.o. at 32w0d weeks gestation. Dating by: LMP No LMP recorded. Patient is . Estimated Date of Delivery: 05/03/15 care: is with [facility] Patient's is complicated by: Patient Active Problem [...] Salpingectomy in 2009 Currently, patient presents with extreme muscle weakness and fatigue since last Saturday. She reportsthat she had been seen in [facility] that day for evaluation of labor and received Procardia, which helped, but since then patient had associated these symptoms with the Procardia. She returned to [facility] yesterday and was found to be hypokalemic and after a long wait, asked to be discharged and was given 40mEq of PO potassium. She reports taking this at 7:30pm last night. She awoke this AM and had nausea and vomiting x4 and continued muscle weakness. She called her doctor's office and they recommended she come in for evaluation. She denies CP or palpitations. She is not currently nauseated and declines additional anti-emetics. She reports mild headache and denies RUQ or epigastric pain. Denies Ctx, LOF and VB. Movement positive x2 Review of Symptoms: No [place]VALLE/vision change/RUQ pain No SOB/CP/CT No nausea/ vomitting/ fevers/ chills/ diarrhea No dysuria/ hematuria/ urinary urgency/ irritation Obstetrical History: OB History Para Term AB SAB TAB Ectopic Multiple Living 3 1 1 1 0 1 1 # Outcome Date GA Lbr Ray/2nd Weight Sex Delivery Anes PTL Lv 3 Current 2 Term 08/19/12 39w0d 3685 g (8 lb 2 oz) M Vag-Spont EPI Y 1 Ectopic 2010 Gynecologic History: Patient reports history of abnormal pap smears. Cervical procedures: LEEP in 2004 and cervical Patient denies STDs or HSV Past Medical History Diagnosis Date ??? History of anemia ??? 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 Nausea/vomiting in ??? Abnormal Pap smear of cervix LEEP 2004 She denies history of hypertension, diabetes, asthma or bleeding disorders. Psych History: Denies Depression/ Anxiety/ Bipolar D/O/ Schizophrenia Past Surgical History Procedure Laterality Date ??? Cervical leep 2009 ??? Lap salpingostomy 2009 Current Medications: Current Facility-Administered Medications on File Prior to Encounter Medication Dose Route Frequency Provider Last Rate Last Dose ??? [COMPLETED] potassium chloride (KLOR-CON M) tablet 40 mEq 40 mEq Oral Once Juan Carlos Anand MD 40 mEq at 03/07/15 1384 Current Outpatient Prescriptions on File Prior to Encounter Medication Sig Dispense Refill ??? ondansetron, disintegrating, (ZOFRAN ODT) 4 MG tablet Take 4 mg by mouth every 6 hours as needed for Nausea/Vomiting Allow tablet to dissolve on the tongue ??? Vit-Fe Fumarate-FA ( VITAMIN) 28-0.8 MG tablet Take 1 Tab by mouth once daily ??? acetaminophen (TYLENOL) 500 MG tablet Take 500 mg by mouth every 4 hours as needed for Fever orPain Maximum allowable Acetaminophen amount = 4 Grams (4000 mg) / 24 hours. ??? Doxylamine-Pyridoxine (DICLEGIS PO) ??? metoclopramide (REGLAN) 10 MG tablet Take 10 mg by mouth 3 times daily before meals Allergies: No Known Allergies Social History Smoking Status: Former Smoker Packs/Day: 0.00 Years: Quit date: 04/29/2010 Smokeless Status: Never Used Alcohol Use: No Drug Use: No Sexual Activity: Not on file Family History Problem Relation Age of Onset ??? Breast Cancer after age 50 or unknown Maternal Grandmother ??? Breast Cancer at or under age 50 Paternal Grandmother No history of infants born with defects No history of family members with bleeding disorders No history of breast, ovarian, or uterine cancer Objective: Vitals: 03/08/15 1432 03/08/15 1436 03/08/15 1437 03/08/15 1442 BP: Pulse: Temp: Resp: 18 Weight: SpO2: 97% 97% 97% non-stress test Fetus A: baseline rate 130, variability: moderate, accelerations present, no decelerations present Fetus B: baseline rate 135, variability: moderate, accelerations present, no decelerations present Picking up maternal HR on monitoring [place]: Irritability Physical Exam: General: alert, cooperative, no distress Lungs: clear to auscultation bilaterally Heart: RRR, no murmurs, rubs or gallops Abdomen: Gravid. Soft, non-tender, with normal bowel sounds Extremities: normal, non-tender bilaterally. Edema 1+ Neuro: CN II-XII intact, strength 5/5, reflexes +2 Sterile speculum exam: Declines Cervical Exam Pt declines exam, not feeling contractions Current Lab Review: Hospital Encounter on 03/08/15 URINALYSIS ROUTINE W/REFLEX TO CULTURE Result Value Ref Range Color UA Yellow Straw, Yellow, Dark Yellow Clarity UA Clear Specific [place] UA 1.018 1.005-1.030 pH UA 7.0 5.0-8.0 pH Protein UA Trace (Abnormal) Negative Blood UA Negative Negative Leukocyte UA 1+ (Abnormal) Negative Nitrite UA Negative Negative Glucose UA Negative Negative Ketone UA 2+ (Abnormal) Negative Bili UA Negative Negative Urobilinogen UA 1.0 0.1-1.0 EU/dL WBC UA Auto 2-5 0-2, 2-5 # /hpf RBC UA Auto 2-5 0-2, 2-5 # /hpf Epithelial Cell UA Auto 2-5 0-2, 2-5 # /hpf Bacteria UA Auto 1+ (Abnormal) None seen Hyaline Casts UA Auto 2-5 (Abnormal) 0-2 #/lpf Reflex Status Culture to follow COMPREHENSIVE METABOLIC PANEL Result Value Ref Range Glucose 86 74-106 mg/dL Sodium 139 136-145 mmol/L Potassium 2.9 (L) 3.5-5.1 mmol/L Chloride 107 98-107 mmol/L CO2 24 22-31 mmol/L Calcium 8.3 (L) 8.5-10.1 mg/dL Anion Gap 8 5-20 mmol/L BUN 2 (L) 7-21 mg/dL Creatinine 0.58 0.50-1.30 mg/dL Alk Phos 132 (H) 38-126 U/L ALT/SGPT 21 12-78 U/L AST/SGOT 30 5-40 U/L Protein Total 5.8 (L) 6.4-8.2 gm/dL Albumin 2.2 (L) 3.4-5.0 gm/dL Bili Total 0.4 0.2-1.0 mg/dL eGFR MDRD >60 >60 mL/min/1.73m2 eGFR MDRD AFR AMR >60 >60 mL/min/1.73m2 labs Requested Assessment/Plan: 29 y.o. @ 32w0d 1. Hypokalemia likely secondary to N/V 1. Seen in [facility] yesterday with K+ of 2.8, given 40mEq of oral Potassium 2. Repeat CMP today showing K+ 2.9 3. Patient still reporting fatigue and muscle weakness 4. Vomiting x4 this AM with history of hyperemesis gravidarum this 5. UA with +2 ketones 6. EKG showing NSR 7. Admit to Antepartum for Potassium supplementation and IV hydration 2. Hyperemesis Gravidarum 1. Patient currently takes Diclegis, Reglan and Zofran PRN, will order on admission 2. Vomited x4 this AM, reports vomiting very other day through 1st and 3rd trimester 3. Elevated Blood Pressures in [facility] 1. Mild range BPs, now WNL 2. Reports mild headache but otherwise asymptomatic 3. PIH labs pending 4. 24 hr urine ordered 4. Hx of fainting and lightheadedness this CBC yesterday with Hgb 9.6 S/p Cardiology work up, normal per pt S/p Echo 5. FWB- reassuring 6. Dispo: Admit to Antepartum Discussed with Dr. Rhonda Julian MD 03/08/2015 2:53 PM Obstetric H&P Note 03/08/2015, 4:17 PM CC: Nausea vomiting weakness HPI: 29 y.o. at 32w0d gestation, IVF care: is with Dr. Tamez. [place] office Patient's is complicated by: Patient Active Problem List Diagnosis ??? Dichorionic diamniotic twin ??? product of IVF ??? History of LEEP (loop electrosurgical excision procedure) of cervix complicating ??? Depression ??? Obesity ??? Supervision of high risk in second trimester ??? History of ectopic ??? Encounter for suspected PROM, with rupture of membranes not found Patient presents with complaints of interrmitaant nausea and vomiting, today, and Saturday. Generalized weakness and fatigue for about 1 week, attributed in part to nifedipine given in [facility] for tocolysis. No CP/SOB or leg pain. No fevers. NO diarrhea. N&V is longstanding throughout , but no longer daily. Vomited supplemental K+. negative Ctx. negative LOF. negative VB. positive FM. Review of Symptoms: Positive for: se HPI Denies: fevers, chills, headache, chest pain, shortness of breath, diarrhea, constipation, dysuria,urinary frequency, changes in vaginal discharge Obstetrical History: OB History Para Term AB SAB TAB Ectopic Multiple Living 3 1 1 1 0 1 1 # Outcome Date GA Lbr Ray/2nd Weight Sex Delivery Anes PTL Lv 3 Current 2 Term 08/19/12 39w0d 3685 g (8 lb 2 oz) M Vag-Spont EPI Y 1 Ectopic 2009 Gynecologic History: Abnormal pap smears: Yes Cervical procedures LEEP STDs: No Denies history of gonorrhea, chlamydia, trichomonas, herpes, HIV, syphilis Medical History: Past Medical History Diagnosis Date ??? History of anemia ??? 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 Nausea/vomiting in ??? Abnormal Pap smear of cervix LEEP 2004 She denies history of hypertension, diabetes, asthma or bleeding disorders. Psych History: Denies Surgeries: Past Surgical History Procedure Laterality Date ??? Cervical leep 2009 ??? Lap salpingostomy 2009 Current Medications: Prior to Admission medications Medication Sig Start Date End Date Taking? Authorizing Provider ondansetron, disintegrating, (ZOFRAN ODT) 4 MG tablet Take 4 mg by mouth every 6 hours as needed for Nausea/Vomiting Allow tablet to dissolve on the tongue Yes Anabel Heath MD Vit-Fe Fumarate-FA ( VITAMIN) 28-0.8 MG tablet Take 1 Tab by mouth once daily Yes Anabel Heath MD acetaminophen (TYLENOL) 500 MG tablet Take 500 mg by mouth every 4 hours as needed for Fever or Pain Maximum allowable Acetaminophen amount = 4 Grams (4000 mg) / 24 hours. Anabel Heath MD Doxylamine-Pyridoxine (DICLEGIS PO) Anabel [...] history of family members with bleeding disorders or history of blood clots. Objective: Vitals: 03/08/15 1528 03/08/15 1532 03/08/15 1537 03/08/15 1542 BP: 118/60 Pulse: Temp: Resp: Weight: SpO2: 98% 100% 98% non-stress test (cowart): baseline rate 130, mod sisi, reactive, no decels Second fetus: baseline rate 130s, mod sisi, reactive, no decels [place]: irritable Physical Exam: General: alert, cooperative, no distress Lungs: clear to auscultation bilaterally Heart: regular rate and rhythm Abdomen: gravid, soft, nontender, normal bowel sounds Extremities: normal, non-tender bilaterally. Current Lab Review: Hospital Encounter on 03/08/15 URINALYSIS ROUTINE W/REFLEX TO CULTURE Result Value Ref Range Color UA Yellow Straw, Yellow, Dark Yellow Clarity UA Clear Specific [place] UA 1.018 1.005-1.030 pH UA 7.0 5.0-8.0 pH Protein UA Trace (Abnormal) Negative Blood UA Negative Negative Leukocyte UA 1+ (Abnormal) Negative Nitrite UA Negative Negative Glucose UA Negative Negative Ketone UA 2+ (Abnormal) Negative Bili UA Negative Negative Urobilinogen UA 1.0 0.1-1.0 EU/dL WBC UA Auto 2-5 0-2, 2-5 # /hpf RBC UA Auto 2-5 0-2, 2-5 # /hpf Epithelial Cell UA Auto 2-5 0-2, 2-5 # /hpf Bacteria UA Auto 1+ (Abnormal) None seen Hyaline Casts UA Auto 2-5 (Abnormal) 0-2 #/lpf Reflex Status Culture to follow COMPREHENSIVE METABOLIC PANEL Result Value Ref Range Glucose 86 74-106 mg/dL Sodium 139 136-145 mmol/L Potassium 2.9 (L) 3.5-5.1 mmol/L Chloride 107 98-107 mmol/L CO2 24 22-31 mmol/L Calcium 8.3 (L) 8.5-10.1 mg/dL Anion Gap 8 5-20 mmol/L BUN 2 (L) 7-21 mg/dL Creatinine 0.58 0.50-1.30 mg/dL Alk Phos 132 (H) 38-126 U/L ALT/SGPT 21 12-78 U/L AST/SGOT 30 5-40 U/L Protein Total 5.8 (L) 6.4-8.2 gm/dL Albumin 2.2 (L) 3.4-5.0 gm/dL Bili Total 0.4 0.2-1.0 mg/dL eGFR MDRD >60 >60 mL/min/1.73m2 eGFR MDRD AFR AMR >60 >60 mL/min/1.73m2 labs A+/I/-/- NR GCT wnl Assessment/Plan: 29 y.o. @ 32w0d 7. Nausea and vomiting with hypokalemia. Weakness and fatigue may be attributable to electrolyte abnormalities. Prior evlauation for fatigue and synsope/presyncope this with normal Holter monitoring and ECHOcardiogram. 1. IVF with potassium, recheck this evening 2. Antiemetics PRN 3. EKG pending 8. Elevated BPs, mild and no symptoms of preeclampsia 1. PIH labs wnl, 24 hour urine collection in progress 9. Dichorionic, diamniotic twins 1. EFW [id number] concordent, AGA growth Admit for observation To be discussed with Dr. Ele Ellis MD 03/08/2015 4:17 PM STRIAL RELATIONS COUNSELOR Associated attestation - Stacia Marlow MD - 03/08/2015 11:41 PM INDUSTRIAL RELATIONS COUNSELOR Teaching Attending Admission Note I have interviewed and examined the patient, and discussed the assessment and plan of care with theresident/fellow. Available records were reviewed. I agree with the findings and plan of care as outlined in the resident/fellow notes, with the following addendum: In brief, my findings include: 29 y.o. G 3 P 1 A 1 Female, at 32w0d weeks gestation by BALTAZAR Estimated Date of Delivery: 05/03/15, admitted for nausea, vomiting, dehydration, hypokalemia. Her so far has been complicated by: Patient Active Problem List Diagnosis [...] History of ectopic 11/14/2014 Salpingectomy in 2009 She reports: no bleeding, cramping/contractions or leaking of fluid, feeling a little better but still with nausea. Movement: normal. Was unable to keep down potassium po and had persistent vomiting and weakness. Usually takes 2 Diclegis at night and a Zofran in the morning if still nauseatedbecause the Diclegis makes her too sleepy to care for her child. Pertinent elements of her past medical history, review of systems, and family history are as follows: concern for elevated BP Exam: A physical examination was performed with the following burden findings: BP 115/66 mmHg Pulse 100 Temp(Src) 98.3 ??F Resp 20 Wt 234 lb (106.142 kg) BMI 37.79 kg/m2 General: alert, cooperative, no distress Skin: flushed cheeks Pertinent laboratory results are as follows: Recent Labs Component Name 03/08/15 1320 03/07/15 1706 SODIUM 139 137 POTASSIUM 2.9* 2.8* CHLORIDE 107 107 CO2 24 23 BUN 2* 2* CREATININE 0.58 0.49* GLUCOSE 86 80 CALCIUM 8.3* 8.7 ALBUMIN 2.2* 2.4* ALKPHOS 132* 141* ALT 21 21 AST 30 28 TBIL 0.4 0.3 TPROT 5.8* 6.1* EGFR >60 >60 Recent Labs Component Name 03/08/15 1617 03/07/15 1706 WBC 9.7 10.4 RBC 3.59* 3.76* HGB 9.1* 9.6* HCT 28.3* 29.2* MCV 78.8* 77.7* MCHC 32.2 32.9 PLTCOUNT 183 185 NEUTPCT 78.1* 76.8* LYMPHPCT 14.1* 15.1* MONOCYTPCT 6.5 6.7 EOSINPCT 0.5 0.7 BASOPHILPCT 0.2 0.1 GRANSIMMPCT 0.6 0.6 NEUTABS 7.53* 8.02* LYMPHABS 1.36 1.58 MONOCYTABS 0.63 0.70 EOSINABS 0.05 0.07 BASOABS 0.02 0.01 IMMGRANSABS 0.06 0.06 Relevant findings are as follows: reactive x 2 earlier today Impression: The following maternal and/or problems are identified: 1. Twin IUP (Intrauterine ) at 32w0d 2. Hyperemesis gravidarum with hypokalemia and failed oral repletion 3. Microcytic anemia, likely iron deficiency as has had normal MCV in the past 4. Transient elevated BPs, now very normal, doubt preeclampsia, but she remains at risk. Reasonableto get a 24 hour urine baseline Counseling today included the following: We discussed using B6 alone during the day without doxylamine for nausea. Plan: Agree with observation, rehydration potassium replacement Treat for iron deficiency - may be a Venofer candidate, given poor tolerance of oral intake B6 during the day for nausea Stacia Kory Marlow MD documented in this encounter Plan of Treatment Not on file documented as of this encounter Procedures Procedure Name Priority Date/Time Associated Diagnosis Comments LAB RESULTS ORDER 03/11/2015 4:5 6 PM INDUSTRIAL RELATIONS COUNSELOR IMAGING/RADIOLOGY/XRAY RESULTS ORDER 03/11/2015 4:56 PM INDUSTRIAL RELATIONS COUNSELOR PROTEIN CREATININE RATIO URINE TIMED PNL STAT 03/09/2015 5:33 PM INDUSTRIAL RELATIONS COUNSELOR Supervision of high risk in second trimester PROTEIN URINE TIMED QUANTITATIVE Routine 03/09/2015 5:33 PM INDUSTRIAL RELATIONS COUNSELOR Supervision of high risk in second trimester CREATININE CLEARANCE URINE TIMED + BLOOD Routine 03/09/2015 5:33 PM INDUSTRIAL RELATIONS COUNSELOR Supervision of high risk in second trimester BASIC METABOLIC PANEL (CALCIUM TOTAL) AM Draw 03/09/2015 3:57 AM INDUSTRIAL RELATIONS COUNSELOR PHOSPHORUS BLOOD Routine 03/09/2015 3:57 AM INDUSTRIAL RELATIONS COUNSELOR MAGNESIUM BLOOD Routine 03/09/2015 3:57 AM INDUSTRIAL RELATIONS COUNSELOR BASIC METABOLIC PANEL (CALCIUM TOTAL) Timed 03/09/2015 12:02 AM INDUSTRIAL RELATIONS COUNSELOR BLOOD TYPE VERIFICATION Routine 03/08/2015 4:35 PM INDUSTRIAL RELATIONS COUNSELOR TYPE + SCREEN PANEL STAT 03/08/2015 4 :17 PM INDUSTRIAL RELATIONS COUNSELOR CBC W AUTO DIFFERENTIAL STAT 03/08/2015 4:17 PM INDUSTRIAL RELATIONS COUNSELOR Supervision of high risk in second trimester EKG 12-LEAD STAT 03/08/2015 3:38 PM INDUSTRIAL RELATIONS COUNSELOR Hypokalemia URINALYSIS REFLEX MICROSCOPIC REFLEX CULTURE STAT 03/08/2015 1:20 PM INDUSTRIAL RELATIONS COUNSELOR Dichorionic diamniotic twin URIC ACID BLOOD Add on 03/08/2015 1:20 PM INDUSTRIAL RELATIONS COUNSELOR Supervision of high risk in second trimester CULTURE URINE Routine 03/08/2015 1:20 PM INDUSTRIAL RELATIONS COUNSELOR Dichorionic diamniotic twin COMPREHENSIVE METABOLIC PANEL STAT 03/08/2015 1:20 PM INDUSTRIAL RELATIONS COUNSELOR Dichorionic diamniotic twin PROTEIN CREATININE RATIO URINE RANDOM PNL Add on 03/08/2015 1:20 PM INDUSTRIAL RELATIONS COUNSELOR LDH BLOOD Add on 03/08/2015 1:20 PM INDUSTRIAL RELATIONS COUNSELOR Supervision of high risk in second trimester documented in this encounter Results * LAB RESULTS ORDER (03/11/2015 4:56 PM INDUSTRIAL RELATIONS COUNSELOR) Narrative 03/11/2015 4:56 PM INDUSTRIAL RELATIONS COUNSELOR Ordered by an unspecified provider. Scanned Document LAB - THERAPEUTIC DR UG MONITORING ORDERABLES * IMAGING/RADIOLOGY/XRAY RESULTS ORDER (03/11/2015 4:56 PM INDUSTRIAL RELATIONS COUNSELOR) Anatomical Region Laterality Modality Other Narrative 03/11/2015 4:56 PM INDUSTRIAL RELATIONS COUNSELOR Ordered by an unspecified provider. Scanned Document IMAGING * PROTEIN CREATININE RATIO URINE TIMED PNL (03/09/2015 5:33 PM INDUSTRIAL RELATIONS COUNSELOR) Volume 24 Hour Urine 1,900 mL 03/09/2015 6:07 PM [facility] Collection Time Hours 24 hrs 03/09/2015 6:07 PM [facility] Protein Urine 19.7 mg/dL 03/09/2015 6:07 PM [facility] Creatinine Urine 85 mg/dL 03/09/2015 6:07 PM [facility] Protein/Creatin ine Ratio Urine 0.23 03/09/2015 6:07 PM [facility] Urine TIMED URINE SPECIMEN / Unknown Collection / Unknown 03/09/2015 5:33 PM INDUSTRIAL RELATIONS COUNSELOR 03/09/2015 5:52 PM INDUSTRIAL RELATIONS COUNSELOR Oanh Julian MD LAB - URINE CHEMI STRY ORDERABLES [facility] [address] [place] [address] * (ABNORMAL) PROTEIN URINE TIMED QUANTITATIVE (03/09/2015 5:33 PM INDUSTRIAL RELATIONS COUNSELOR) Volume 24 Hour Urine 1,900 mL 03/09/2015 6:07 PM [facility] Collection Time Hours 24 hrs 03/09/2015 6:07 PM [facility] Protein 24 Hour Urine 374(H) 42 - 225 mg/24hr 03/09/2015 6:07 PM [facility] Protein Urine 19.7 mg/dL 03/09/2015 6:07 PM [facility] Urine TIMED URINE SPECIMEN / Unknown Collection / Unknown 03/09/2015 5:33 PM INDUSTRIAL RELATIONS COUNSELOR 03/09/2015 5:52 PM INDUSTRIAL RELATIONS COUNSELOR Oanh Julian MD LAB - URINE CHEMI STRY ORDERABLES Performing Organization Address City/State/[place] Co de Phone Number [facility] [address] [place] [address] * (ABNORMAL) CREATININE CLEARANCE URINE TIMED (03/09/2015 5:33 PM [facility]) Volume 24 Hour Urine 1,900 mL 03/09/2015 6:07 PM [facility] Collection Time Hours 24 hrs 03/09/2015 6:07 PM [facility] Height Inches 66 inches 03/09/2015 6:07 PM [facility] Weight in Pounds 234 pounds 03/09/2015 6:07 PM [facility] Surface Area 2.14 03/09/2015 6:07 PM [facility] Creatinine 0.41(L) 0.50 - 1.30 mg/dL 03/09/2015 6:07 PM [facility] Creatinine Urine 85 mg/dL 03/09/2015 6:07 PM [facility] Creatinine 24 Hour Urine 1,615 800 - 1,800 mg/24hr 03/09/2015 6:07 PM [facility] Creatinine Clearance 221(H) 87 - 107 mL/min/1.73 m2 03/09/2015 6:07 PM [facility] Urine TIMED URINE SPECIMEN / Unknown Collection / Unknown 03/09/2015 5:33 PM INDUSTRIAL RELATIONS COUNSELOR 03/09/2015 5:52 PM INDUSTRIAL RELATIONS COUNSELOR Oanh Julian MD LAB - URINE CHEMI STRY ORDERABLES Performing Organization Address [facility]/ZIP Co de Phone Number [facility] [address] [place] [address] * (ABNORMAL) PHOSPHORUS BLOOD (03/09/2015 3:57 AM INDUSTRIAL RELATIONS COUNSELOR) Phosphorus 2.4(L) 2.5 - 4.9 mg/dL 03/09/2015 4:41 AM INDUSTRIAL RELATIONS COUNSELOR [facility] Blood BLOOD SPECIMEN / Unknown Lab Venipuncture / Unknown 03/09/2015 3:57 AM INDUSTRIAL RELATIONS COUNSELOR 03/09/2015 4:02 AM INDUSTRIAL RELATIONS COUNSELOR Jose Antonio Saravia MD LAB - CHEMISTRY CJ SINHA Performing Organization Address [facility]/[place] Co de Phone Number [facility] [address] [place] [address] * MAGNESIUM BLOOD (03/09/2015 3:57 AM INDUSTRIAL RELATIONS COUNSELOR) Magnesium 1.9 1.6 - 2.6 mg/dL 03/09/2015 4:41 AM INDUSTRIAL RELATIONS COUNSELOR [facility] Blood BLOOD SPECIMEN / Unknown Lab Venipuncture / Unknown 03/09/2015 3:57 AM INDUSTRIAL RELATIONS COUNSELOR 03/09/2015 4:02 AM INDUSTRIAL RELATIONS COUNSELOR Jose Antonio Saravia MD LAB - CHEMISTRY ORDDeya SINHA Performing Organization Address [facility]/ZIP Co de Phone Number [facility] [address] [place] [address] * (ABNORMAL) BASIC METABOLIC PANEL (CALCIUM TOTAL) (03/09/2015 3:57 AM INDUSTRIAL RELATIONS COUNSELOR) Glucose 88 74 - 106 mg/dL 03/09/2015 4:41 AM [facility] Sodium 141 136 - 145 mmol/L 03/09/2015 4:41 AM [facility] Potassium 3.2(L) 3.5 - 5.1 mmol/L 03/09/2015 4:41 AM [facility] Chloride 110(H) 98 - 107 mmol/L 03/09/2015 4:41 AM [facility] CO2 22 22 - 31 mmol/L 03/09/2015 4:41 AM [facility] Calcium 8.0(L) 8.5 - 10.1 mg/dL 03/09/2015 4:41 AM [facility] Anion Gap 9 5 - 20 mmol/L 03/09/2015 4:41 AM [facility] BUN 2(L) 7 - 21 mg/dL 03/09/2015 4:41 AM [facility] Creatinine 0.41(L) 0.50 - 1.30 mg/dL 03/09/2015 4:41 AM [facility] eGFR by MDRD >60 >60 mL/min/1.7 3m2 03/09/2015 4:41 AM [facility] eGFR by MDRD >60 >60 mL/min/1.7 3m2 03/09/2015 4:41 AM [facility] Blood BLOOD SPECIMEN / Unknown Lab Venipuncture / Unknown 03/09/2015 3:57 AM INDUSTRIAL RELATIONS COUNSELOR 03/09/2015 4:02 AM [facility] Jose Antonio Saravia MD LAB - CHEMISTRY CJ [facility] Organization Address City/State/ZIP Co de Phone Number [facility] [address] [place], [place] [id number] * (ABNORMAL) BASIC METABOLIC PANEL (CALCIUM TOTAL) (03/09/2015 12:02 AM [facility]) [facility] Glucose 87 74 - 106 mg/dL 03/09/2015 12:31 AM [facility] Sodium 140 136 - 145 mmol/L 03/09/2015 12:31 AM [facility] Potassium 3.2(L) 3.5 - 5.1 mmol/L 03/09/2015 12:31 AM [facility] Chloride 109(H) 98 - 107 mmol/L 03/09/2015 12:31 AM [facility] CO2 25 22 - 31 mmol/L 03/09/2015 12:31 AM [facility] Calcium 8.0(L) 8.5 - 10.1 mg/dL 03/09/2015 12:31 AM [facility] Anion Gap 6 5 - 20 mmol/L 03/09/2015 12:31 AM [facility] BUN 2(L) 7 - 21 mg/dL 03/09/2015 12:31 AM INDUSTRIAL RELATIONS COUNSELOR [facility] Creatinine 0.45(L) 0.50 - 1.30 mg/dL 03/09/2015 12:31 AM INDUSTRIAL RELATIONS COUNSELOR [facility] eGFR by MDRD >60 >60 mL/min/1.7 3m2 03/09/2015 12:31 AM INDUSTRIAL RELATIONS COUNSELOR [facility] eGFR by MDRD >60 >60 mL/min/1.7 3m2 03/09/2015 12:31 AM INDUSTRIAL RELATIONS COUNSELOR [facility] Blood BLOOD SPECIMEN / Unknown Lab Venipuncture / Unknown 03/09/2015 12:02 AM INDUSTRIAL RELATIONS COUNSELOR 03/09/2015 12:10 AM INDUSTRIAL RELATIONS COUNSELOR Yessi Ashley MD LAB - CHEMISTRY CJ SINHA [facility] [address] [place] [address] * BLOOD TYPE VERIFICATION (03/08/2015 4:35 PM INDUSTRIAL RELATIONS COUNSELOR) ABO A 03/08/2015 5:48 PM INDUSTRIAL RELATIONS COUNSELOR [facility] Rh Type Positive 03/08/2015 5:48 PM INDUSTRIAL RELATIONS COUNSELOR [facility] Miscellaneous samples (specimen) BLOOD SPECIMEN / Unknown Venipuncture / Unknown 03/08/2015 4:35 PM INDUSTRIAL RELATIONS COUNSELOR 03/08/2015 5:29 PM INDUSTRIAL RELATIONS COUNSELOR Marciano Tamez MD LAB - BLOOD BANK MYLES GUERRERO Performing Organization Address City/[facility]/ZIP Co de Phone Number [facility] [address] * TYPE & SCREEN (03/08/2015 4:17 PM INDUSTRIAL RELATIONS COUNSELOR) ABO A 03/08/2015 5:46 PM INDUSTRIAL RELATIONS COUNSELOR [facility] Rh Type Positive 03/08/2015 5:46 PM INDUSTRIAL RELATIONS COUNSELOR [facility] Comment:History check perfor med. Retype required. Antibody Screen Negative 03/08/2015 5:46 PM INDUSTRIAL RELATIONS COUNSELOR [facility] Miscellaneous samples (specimen) BLOOD SPECIMEN / Unknown Venipuncture / Unknown 03/08/2015 4:17 PM INDUSTRIAL RELATIONS COUNSELOR 03/08/2015 4:46 PM INDUSTRIAL RELATIONS COUNSELOR Oanh Julian MD LAB - BLOOD BANK ORDERABLES [facility] [address] * (ABNORMAL) CBC W AUTO DIFFERENTIAL (03/08/2015 4:17 PM INDUSTRIAL RELATIONS COUNSELOR) WBC 9.7 4.4 - 10.7 x10^9/L 03/08/2015 4:59 PM [facility] WBC Corrected x10^9/L 03/08/2015 4:59 PM [facility] RBC 3.59(L) 3.80 - 5.20 x10^12/L 03/08/2015 4:59 PM [facility] Hemoglobin 9.1(L) 12.0 - 15.6 gm/dL 03/08/2015 4:59 PM [facility] Hematocrit 28.3(L) 35.9 - 45.5 % 03/08/2015 4:59 PM [facility] MCV 78.8(L) 80.7 - 98.3 fl 03/08/2015 4:59 PM [facility] MCH 25.3(L) 26.7 - 34.0 pg 03/08/2015 4:59 PM [facility] MCHC 32.2 30.8 - 35.9 gm/dL 03/08/2015 4:59 PM [facility] Platelet Count 183 153 - 416 x10^9/L 03/08/2015 4:59 PM [facility] RDW-CV 13.3 12.1 - 14.9 % 03/08/2015 4:59 PM [facility] MPV 11.4 9.4 - 12.9 fl 03/08/2015 4:59 PM [facility] Neutrophils % 78.1(H) 44.0 - 73.0 % 03/08/2015 4:59 PM [facility] Lymphocytes % 14.1(L) 20.0 - 43.0 % 03/08/2015 4:59 PM [facility] Monocytes % 6.5 5.0 - 13.0 % 03/08/2015 4:59 PM [facility] Eosinophils % 0.5 0.0 - 6.0 % 03/08/2015 4:59 PM INDUSTRIAL RELATIONS COUNSELOR [facility] Basophils % 0.2 0.0 - 2.0 % 03/08/2015 4:59 PM [facility] Immature Granulocytes 0.6 0 - 1 % 03/08/2015 4:59 PM [facility] Neutrophil Absolute 7.53(H) 2.01 - 7.14 x10^9/L 03/08/2015 4:59 PM [facility] Lymphocytes Absolute 1.36 1.07 - 3.94 x10^9/L 03/08/2015 4:59 PM [facility] Monocytes Absolute 0.63 0.26 - 1.07 x10^9/L 03/08/2015 4:59 PM [facility] Eosinophils Absolute 0.05 0 - 0.47 x10^9/L 03/08/2015 4:59 PM [facility] Basophils Absolute 0.02 0 - 0.08 x10^9/L 03/08/2015 4:59 PM [facility] Immature Granulocytes Absolute 0.06 0.00 - 0.06 x10^9/L 03/08/2015 4:59 PM [facility] Blood BLOOD SPECIMEN / Unknown Venipuncture / Unknown 03/08/2015 4:17 PM INDUSTRIAL RELATIONS COUNSELOR 03/08/2015 4:46 PM [facility] Oanh Julian MD LAB - HEMATOLOGY ORDERABLES Performing Organization Address [facility]/State/ZIP Co de Phone Number [facility] [address] [place] [address] * EKG 12-LEAD (03/08/2015 3:38 PM INDUSTRIAL RELATIONS COUNSELOR) Ventricular Rate 85 BPM [facility] Atrial Rate 85 BPM [facility] P-R Interval 194 ms [facility] QRS Duration ms 88 ms [facility] Q-T Interval ms 366 ms [facility] QTC Calculation (Bezet) 435 ms [facility] Calculated P [place] 2 degrees [facility] Calculated R [place] 30 degrees [facility] Calculated T [place] 6 degrees [facility] Interpretation EKG NORMAL SINUS RHYTHM NORMAL ECG NO PREVIOUS ECGS AVAILABLE Confirmed by MD Kavitha, Aly ([id number]) on 03/09/2015 8:55:45 AM [facility] 03/08/2015 3:38 PM INDUSTRIAL RELATIONS COUNSELOR 03/09/2015 8:55 AM INDUSTRIAL RELATIONS COUNSELOR Oanh Julian MD ECG ORDERABLES Performing Organization Address [facility]/[place] Co de Phone Number [facility] * PROTEIN CREATININE RATIO URINE RANDOM PNL (03/08/2015 1:20 PM INDUSTRIAL RELATIONS COUNSELOR) Protein Urine 40.6 mg/dL 03/08/2015 7:29 PM INDUSTRIAL RELATIONS COUNSELOR [facility] Creatinine Urine 210 mg/dL 03/08/2015 7:29 PM INDUSTRIAL RELATIONS COUNSELOR [facility] Protein/Creatin ine Ratio Urine 0.19 03/08/2015 7:29 PM INDUSTRIAL RELATIONS COUNSELOR [facility] Urine URINE SPECIMEN OBTAINED BY CLEAN CATCH PROCEDURE / Unknown Collection / Unknown 03/08/2015 1:20 PM INDUSTRIAL RELATIONS COUNSELOR 03/08/2015 7:14 PM INDUSTRIAL RELATIONS COUNSELOR Elmira Ellis MD LAB - URINE CHEMI STRY ORDERABLES Performing Organization Address [facility] de Phone Number [facility] [address] [place], [place] [id number] * URIC ACID BLOOD (03/08/2015 1:20 PM INDUSTRIAL RELATIONS COUNSELOR) Uric Acid 3.5 3.0 - 8.5 mg/dL 03/08/2015 4:34 PM INDUSTRIAL RELATIONS COUNSELOR [facility] Blood BLOOD SPECIMEN / Unknown Venipuncture / Unknown 03/08/2015 1:20 PM INDUSTRIAL RELATIONS COUNSELOR 03/08/2015 4:23 PM INDUSTRIAL RELATIONS COUNSELOR Oanh Julian MD LAB - CHEMISTRY O RDERABLES Performing Organization Address [facility] de Phone Number [facility] [address] [place] [address] * LDH BLOOD (03/08/2015 1:20 PM INDUSTRIAL RELATIONS COUNSELOR) LDH 198 100 - 200 U/L 03/08/2015 4:40 PM INDUSTRIAL RELATIONS COUNSELOR [facility] Blood BLOOD SPECIMEN / Unknown Venipuncture / Unknown 03/08/2015 1:20 PM INDUSTRIAL RELATIONS COUNSELOR 03/08/2015 4:23 PM INDUSTRIAL RELATIONS COUNSELOR Oanh Julian MD LAB - CHEMISTRY O RDERABLES [facility] [address] [place] [address] * CULTURE URINE (03/08/2015 1:20 PM INDUSTRIAL RELATIONS COUNSELOR) Culture <10,000 CFU/mL normal urogenital augustine SATRUNINO 03/10/2015 8:13 AM [facility] Urine URINE SPECIMEN OBTAINED BY CLEAN CATCH PROCEDURE / Unknown Collection / Unknown 03/08/2015 1:20 PM INDUSTRIAL RELATIONS COUNSELOR 03/08/2015 1:50 PM INDUSTRIAL RELATIONS COUNSELOR Oanh Julian MD LAB - MICROBIOLOG Y ORDERABLES Performing Organization Address City/[facility]/ZIP Co de Phone Number [facility] [address] [phone] * (ABNORMAL) COMPREHENSIVE METABOLIC PANEL (03/08/2015 1:20 PM INDUSTRIAL RELATIONS COUNSELOR) Glucose 86 74 - 106 mg/dL 03/08/2015 2:26 PM [facility] Sodium 139 136 - 145 mmol/L 03/08/2015 2:26 PM [facility] Potassium 2.9(L) 3.5 - 5.1 mmol/L 03/08/2015 2:26 PM [facility] Chloride 107 98 - 107 mmol/L 03/08/2015 2:26 PM [facility] [facility] CO2 24 22 - 31 mmol/L 03/08/2015 2:26 PM [facility] Calcium 8.3(L) 8.5 - 10.1 mg/dL 03/08/2015 2:26 PM [facility] Anion Gap 8 5 - 20 mmol/L 03/08/2015 2:26 PM [facility] BUN 2(L) 7 - 21 mg/dL 03/08/2015 2:26 PM [facility] Creatinine 0.58 0.50 - 1.30 mg/dL 03/08/2015 2:26 PM [facility] Alkaline Phosphatase 132(H) 38 - 126 U/L 03/08/2015 2:26 PM [facility] ALT 21 12 - 78 U/L 03/08/2015 2:26 PM [facility] AST 30 5 - 40 U/L 03/08/2015 2:26 PM [facility] Protein Total 5.8(L) 6.4 - 8.2 gm/dL 03/08/2015 2:26 PM [facility] Albumin 2.2(L) 3.4 - 5.0 gm/dL 03/08/2015 2:26 PM [facility] Bilirubin Total 0.4 0.2 - 1.0 mg/dL 03/08/2015 2:26 PM [facility] eGFR by MDRD >60 >60 mL/min/1.7 3m2 03/08/2015 2:26 PM [facility] eGFR by MDRD >60 >60 mL/min/1.7 3m2 03/08/2015 2:26 PM [facility] Blood BLOOD SPECIMEN / Unknown Venipuncture / Unknown 03/08/2015 1:20 PM [employer]ATIONS COUNSEL[employer] 03/08/2015 1:50 PM [facility] Oanh Julian MD LAB - CHEMISTRY O RDERABLES [facility] [address] [id number] * (ABNORMAL) URINALYSIS ROUTINE W/REFLEX TO CULTURE (03/08/2015 1:20 PM INDUSTRIAL RELATIONS COUNSELOR) Color UA Yellow Straw, Yellow, Dark Yellow 03/08/2015 2:05 PM [facility] Clarity UA Clear 03/08/2015 2:05 PM [facility] Specific [place] UA 1.018 1.005 - 1.030 03/08/2015 2:05 PM [facility] pH UA 7.0 5.0 - 8.0 pH 03/08/2015 2:05 PM [facility] Protein UA Trace(A) Negative 03/08/2015 2:05 PM [facility] Blood UA Negative Negative 03/08/2015 2:05 PM [facility] Leukocyte UA 1+(A) Negative 03/08/2015 2:05 PM [facility] Nitrite UA Negative Negative 03/08/2015 2:05 PM [facility] Glucose UA Negative Negative 03/08/2015 2:05 PM IND[employer]RIAL RELATIONS COUNSEL[employer] [facility] Ketone UA 2+(A) Negative 03/08/2015 2:05 PM IND[employer]RIAL RELATIONS COUNSEL[employer] [facility] Bilirubin UA Negative Negative 03/08/2015 2:05 PM IND[employer]AL RELATIONS COUNSEL[employer] [facility] Urobilinogen UA 1.0 0.1 - 1.0 EU/dL 03/08/2015 2:05 PM IND[employer]RIAL RELATIONS COUNSELOR [facility] WBC UA Auto 2-5 0-2, 2-5 # /hpf 03/08/2015 2:05 PM [employer]RIAL RELATIONS COUNSEL[employer] [facility] RBC UA Auto 2-5 0-2, 2-5 # /hpf 03/08/2015 2:05 PM [employer]RIAL RELATIONS COUNSEL[employer] [facility] Epithelial Cell UA Auto 2-5 0-2, 2-5 # /hpf 03/08/2015 2:05 PM [employer]AL RELATIONS COUNSEL[employer] [facility] Bacteria UA Auto 1+(A) None seen 03/08/2015 2:05 PM [employer]AL RELATIONS COUNSEL[employer] [facility] Hyaline Casts UA Auto 2-5(A) 0 - 2 #/lpf 03/08/2015 2:05 PM [facility] Reflex Status Culture to follow 03/08/2015 2:05 PM [facility] Urine URINE SPECIMEN OBTAINED BY CLEAN CATCH PROCEDURE / Unknown Collection / Unknown 03/08/2015 1:20 PM IND[employer]AL RELATIONS COUNSELOR 03/08/2015 1:50 PM [employer]ATIONS COUNSEL[employer] Oanh Julian MD LAB - URINALYSIS ORDERABLES Performing Organization Address [facility]/State/[place] Co de Phone Number [facility] [address] [place] [address] documented in this encounter Visit Diagnoses Diagnosis Hypokalemia- Primary Hypopotassemia Hypokalemia Hypopotassemia Dichorionic diamniotic twin Twin , antepartum Supervision of high risk in second trimester Unspecified high-risk Hyperemesis gravidarum with electrolyte imbalance Hyperemesis gravidarum with metabolic disturbance, unspecified as to episode of care Maternal iron deficiency anemia affecting , antepartum documented in this encounter Administered Medications Inactive Administered Medications - up to 3 most recent administrations Medication Order MAR Action Action Date Dose Rate Site 0.9% NaCl injection 10 mL 10 mL, Intracatheter, EVERY 8 HOURS, First dose on Sat03/08/15 at 1730, Until Discontinued $ Given 03/09/2015 6:43 AM IND[employer]AL RELATIONS COUNSELOR 10 mL $ Given 03/08/2015 10:00 PM [employer]ATIONS COUNSELOR 10 mL acetaminophen (TYLENOL) tablet 1,000 mg 1,000 mg, Oral, ONCE, 1 dose, On Sat03/09/15 at 0315 $ Given 03/09/2015 3:10 AM IND[employer]AL RELATIONS COUNSELOR 1,000 mg docusate sodium (COLACE) capsule 100 mg 100 mg, Oral, 2 TIMES DAILY, First dose on Sat03/08/15 at 2100, Until Discontinued $ Given 03/09/2015 9:06 AM IND[employer]AL RELATIONS COUNSELOR 100 mg $ Given 03/08/2015 8:33 PM [employer]AL RELATIONS COUNSELOR 100 mg doxylamine (UNISOM) tablet 12.5 mg 12.5 mg, Oral, DAILY AFTER BREAKFAST, First dose on Sat03/09/15 at 0900, Until Discontinued $ Given 03/09/2015 9:06 AM IND[employer]AL RELATIONS COUNSELOR 12.5 mg doxylamine (UNISOM) tablet 25 mg 25 mg, Oral, DAILY AFTER DINNER, First dose (after last modification) on Sat03/08/15 at 2000, Until Discontinued $ Given 03/09/2015 6:44 PM [employer]AL RELATIONS COUNSELOR 25 mg $ Given 03/08/2015 9:30 PM IND[employer]AL RELATIONS COUNSELOR 25 mg iron polysaccharides (NIFEREX 150) capsule 150 mg 150 mg, Oral, DAILY, First dose on Sat03/08/15 at 1630, Until Discontinued $ Given 03/09/2015 9:06 AM [employer]AL RELATIONS COUNSELOR 150 mg $ Given 03/08/2015 7:04 PM [employer] RELATIONS COUNSELOR 150 mg iron sucrose (VENOFER) 300 mg in 0.9% NaCl 100 mL infusion 300 mg, at 66.67 mL/hr, Intravenous, ONCE, 1 dose, On Sat03/09/15 at 0200, May administer up to 200 mg of undiluted solution IVP slowly over 5 minutes. Doses greater than 200 mg must be diluted to an appropriate volume and administered as an infusion. $ Given 03/09/2015 5:11 AM IND[employer]AL RELATIONS COUNSELOR 300 mg 66.67 mL/hr lactated ringers 1,000 mL with potassium chloride 40 mEq infusion at 125 mL/hr, Intravenous, 2 TIMES DAILY, 1 dose, First dose (after last modification) on Sat03/08/15 at 1800 $ Given 03/08/2015 5:52 PM [employer]AL RELATIONS COUNSELOR 125 mL/hr lactated ringers infusion at 125 mL/hr, Intravenous, CONTINUOUS, Starting on Sat03/08/15 at 2045, Until Sat03/09/15 at 2105 $ New Bag/Syringe 03/09/2015 8:27 AM [employer]ATIONS COUNSEL[employer] 125 mL/hr Rate Change 03/09/2015 12:39 AM [employer]ATIONS COUNSELOR 125 mL/hr $ New Bag/Syringe 03/08/2015 8:35 PM [employer]ATIONS COUNSELOR 75 mL/ hr metoclopramide (REGLAN) injection 10 mg 10 mg, Intravenous, EVERY 6 HOURS PRN, Nausea/Vomiting, Starting on Sat03/08/15 at 1601, Until Sat03/09/15 at 1341 $ Given 03/08/2015 4:51 PM [employer]ATIONS COUNSEL[employer] 10 mg ondansetron (disintegrating) (ZOFRAN ODT) tablet 4 mg 4 mg, Sublingual, EVERY 4 HOURS PRN, Nausea/Vomiting, Starting on Sat03/09/15 at 1340, Until Sat03/09/15 at 2105 $ Given 03/09/2015 1:54 PM [employer]ATIONS COUNSELOR 4 mg potassium chloride (KLOR-CON M) tablet 10 mEq 10 mEq, Oral, 3 TIMES DAILY WITH MEALS, First dose on Sat03/09/15 at 1430, Until Discontinued, May cut in half but do not crush or chew. $ Given 03/09/2015 6:44 PM [employer]ATIONS COUNSEL[employer] 10 mEq $ Given 03/09/2015 2:48 PM [employer]AL RELATIONS COUNSELOR 10 mEq potassium chloride 20 meq/ 100 ml infusion 20 mEq, Administer over 2 Hours, Intravenous, ONCE, 1 dose, On Sat03/09/15 at 0130 $ Given 03/09/2015 2:54 AM [employer]ATIONS COUNSELOR 20 mEq potassium chloride infusion 40 mEq 40 mEq, at 50 mL/hr, Administer over 4 Hours, Intravenous, ONCE, 1 dose, On Sat03/08/15 at 2030 $ Given 03/08/2015 8:34 PM [employer] RELATIONS COUNSELOR 40 mEq 5 0 mL/hr potassium chloride infusion 40 mEq 40 mEq, at 50 mL/hr, Administer over 4 Hours, Intravenous, ONCE, 1 dose, On Sat03/09/15 at 1215 $ Given 03/09/2015 12:03 PM [employer]ATIONS COUNSELOR 40 mEq 50 mL/hr pyridoxine (VITAMIN B-6) tablet 50 mg 50 mg, Oral, AT BEDTIME, First dose on Sat03/08/15 at 2100, Until Discontinued $ Given 03/08/2015 8:34 PM [employer]ATIONS COUNSELOR 50 mg documented in this encounter Active and Recently Administered Medications Times are shown in [employer] RELATIONS COUNSELOR. Scheduled Medication Order 03/07/2015 03/08/2015 03/09/2015 0.9% NaCl injection 10 mL (CANCELED) 10 mL, Intracatheter, EVERY 8 HOURS, First dose on Sat03/08/15 at 1730, Until Discontinued 1752 (Not Administered - Provider: Rosalva Wei LPN - Reason: IV Currently Infusing)2200 ($ Given - Provider: Toyin Montoya RN) 0643 ($ Given - Provider: Toyin Montoya RN)1400 (Not Administered - Provider: Rosalva Wei LPN - Reason: Loss of Access) acetaminophen (TYLENOL) tablet 1,000 mg (COMPLETED) 1,000 mg, Oral, ONCE, 1 dose, On Sat03/09/15 at 0315 0310 ($ Given - Provider: Toyin Montoya RN) docusate sodium (COLACE) capsule 100 mg (CANCELED) 100 mg, Oral, 2 TIMES DAILY, First dose on Sat03/08/15 at 2100, Until Discontinued 2032 ($ Given - Provider: Toyin Montoya RN) 09 ($ Given - Provider: Rosalva Wei LPN) doxylamine (UNISOM) tablet 12.5 mg (CANCELED) 12.5 mg, Oral, DAILY AFTER BREAKFAST, First dose on Sat03/09/15 at 0900, Until Discontinued 905 ($ Given - Provider: Rosalva Wei LPN) doxylamine (UNISOM) tablet 25 mg (CANCELED) 25 mg, Oral, DAILY AFTER DINNER, First dose (after last modification) on Sat03/08/15 at 2000, Until Discontinued 2129 ($ Given - Provider: Toyin Montoya RN) 1844 ($ Given - Provider: Rosalva Wei LPN) iron polysaccharides (NIFEREX 150) capsule 150 mg (CANCELED) 150 mg, Oral, DAILY, First dose on Sat03/08/15 at 1630, Until Discontinued 163 (Not Administered - Provider: Rosalva Wei LPN - Reason: Meal time altered)1904 ($ Given - Provider: Rosalva Wei LPN) 0906 ($ Given - Provider: Rosalva Wei LPN) iron sucrose (VENOFER) 300 mg in 0.9% NaCl 100 mL infusion (COMPLETED) 300 mg, at 66.67 mL/hr, Intravenous, ONCE, 1 dose, On Sat03/09/15 at 0200, May administer up to 200 mg of undiluted solution IVP slowly over 5 minutes. Doses greater than 200 mg must be diluted to an appropriate volume and administered as an infusion. 0511 ($ Given - Provider: Toyin Montoya RN)0641 (Rx Stopped - Provider: Toyin Montoya RN) lactated ringers 1,000 mL with potassium chloride 40 mEq infusion (COMPLETED) at 125 mL/hr, Intravenous, 2 TIMES DAILY, 1 dose, First dose (after last modification) on Sat03/08/15 at 1800 1752 ($ Given - Provider: Rosalva Wei LPN) potassium chloride (KLOR-CON M) tablet 10 mEq (CANCELED) 10 mEq, Oral, 3 TIMES DAILY WITH MEALS, First dose on Sat03/09/15 at 1430, Until Discontinued, May cut in half but do not crush or chew. 1448 ($ Given - Provider: Rosalva Wei LPN)1844 ($ Given - Provider: Rosalva Wei LPN) potassium chloride 20 meq/ 100 ml infusion (COMPLETED) 20 mEq, Administer over 2 Hours, Intravenous, ONCE, 1 dose, On Sat03/09/15 at 0130 0254 ($ Given - Provider: Toyin Montoya RN)0454 (Rx Stopped - Provider: Toyin Montoya RN) potassium chloride infusion 40 mEq (COMPLETED) 40 mEq, at 50 mL/hr, Administer over 4 Hours, Intravenous, ONCE, 1 dose, On Sat03/08/15 at 2030 2034 ($ Given - Provider: Toyin Montoya RN) 0034 (Rx Stopped - Provider: Toyin Montoya RN) potassium chloride infusion 40 mEq (CANCELED) 40 mEq, at 50 mL/hr, Administer over 4 Hours, Intravenous, ONCE, 1 dose, On Sat03/09/15 at 1215 1203 ($ Given - Provider: Rosalva Wei LPN)1355 (Rx Stopped - Provider: Alla Chappell RN - Comment: IV painful. Pt received approximately 20mEq from IV source (1/2 of 40mEq bag infused) WIll change to oral K.)1603 (Rx Stopped - Provider: Yaritza Santos, RIYA) pyridoxine (VITAMIN B-6) tablet 50 mg (CANCELED) 50 mg, Oral, AT BEDTIME, First dose on Sat03/08/15 at 2100, Until Discontinued 2033 ($ Given - Provider: Toyin Montoya RN) Continuous Medication Order 03/07/2015 03/08/2015 03/09/2015 lactated ringers infusion (CANCELED) at 125 mL/hr, Intravenous, CONTINUOUS, Starting on Sat03/08/15 at 2045, Until Sat03/09/15 at 2105 203 ($ New Bag/Syringe - Provider: Toyin Montoya RN) 0039 (Rate Change - Provider: Toyin Montoya RN)0827 ($ New Bag/Syringe - Provider: Rosalva Wei LPN) PRN Medication Order 03/07/2015 03/08/2015 03/09/2015 metoclopramide (REGLAN) injection 10 mg (CANCELED) 10 mg, Intravenous, EVERY 6 HOURS PRN, Nausea/Vomiting, Starting on Sat03/08/15 at 1601, Until Sat03/09/15 at 1341 1651 ($ Given - Provider: Elmira Prater RN - Comment: for nausea) ondansetron (disintegrating) (ZOFRAN ODT) tablet 4 mg (CANCELED) 4 mg, Sublingual, EVERY 4 HOURS PRN, Nausea/Vomiting, Starting on Sat03/09/15 at 1340, Until Sat03/09/15 at 2105 1354 ($ Given - Provider: Alla Chappell RN) documented in this encounter Care Teams Emergency Preparedness Coordinator Relationship Specialty Start Date End Date Steve Davis MD [address] [place] [id number] PCP - General Family Medicine 11/14/14 03/29/15 documented as of this encounter
--- OUTSIDE RECORDS SUMMARY | 2024-04-29 22:43 | XMS_ITS | Encounter Summary ---
Author Organization [facility] Address [address] [place] [id number] Care Team Providers Care Ophthalmic Aide Name Role Phone Steve Davis MD Primary Care Provider [phone] Reason for Visit * Reason Comments Rupture of Membranes Encounter Details Date Type Department Care Team (Latest Contact Info) Description 11/14/2014 7:13 PM CDT - 11/14/2014 10:27 PM CDT Hospital Encounter [facility] [address] [id number] Jose Antonio Perez MD [address] [facility] [address] [place] [address] Discharge Disposition: Home or Self Care Social [...] Sign Reading Time Taken Comments Blood Pressure 119/68 11/14/2014 7:24 PM CDT Pulse - - Temperature 36.6 ??C (97.9 ??F) 11/14/2014 7:21 PM CD T Respiratory Rate 22 11/14/2014 7:21 PM CDT Oxygen Saturation - - Inhaled Oxygen Concentration - - Weight 98.8 kg (217 lb 12.8 oz) 11/14/2014 7:21 PM CDT Height 167.6 cm (5' 6 ) 11/14/2014 7:21 PM CDT Body Mass Index 35.15 11/14/2014 7:21 PM CDT documented in this encounter Discharge Instructions * Discharge Instructions* Ankita Nava RN - 11/14/2014 10:21 PM CDT UNDELIVERED PATIENT DISCHARGE INSTRUCTIONS CALL [...] hands. ?? Stomach pains, cramps, nausea,or diarrhea. [facility]: [phone] documented in this encounter Medications at Time of Discharge Medication Sig Dispensed Refills Start Date End Date Vit-Fe Fumarate-FA ( VITAMIN) 28-0.8 MG tablet Take 1 Tab by mouth once daily Doxylamine-Pyridoxine (DICLEGIS PO) 04/03/2015 metoclopramide (REGLAN) 10 MG tablet Take 10 mg by mouth 3 times daily before meals 04/03/2015 ondansetron, disintegrating, (ZOFRAN ODT) 4 MG tablet Take 4 mg by mouth every 6 hours as needed for Nausea/Vomiting Allow tablet to dissolve on the tongue 04/03/2015 documented as of this encounter H&P Notes * Darío Tabor MD - 11/14/2014 9:06 PM CDT PGY-1 Obstetric H&P CC: Leaking fluid HPI: 29 y.o. at 15w5d weeks gestation. Estimated Date of Delivery: 05/03/15 care: is with Dr. Tamez ([facility]). Patient's is complicated by: Patient Active Problem List Diagnosis Date Noted ??? Dichorionic diamniotic twin 11/14/2014 Priority: Not [...] Salpingectomy in 2009 Currently, patient presents with leakage of fluid. She noticed some tricking of fluid around 4:30pmtoday while at the grocery store. She has not noticed any more tricking since then. She had some spotting yesterday in her underwear and when she wiped. negative Ctx. She also reports one episode of diarrhea today with lower back pain and some lower pelvic cramping. Review of Symptoms: No DELVALLE/ vision change/ RUQ pain No SOB/ CP/ CT No nausea/ vomiting/ fevers/ chills No dysuria/ hematuria/ urinary urgency/ irritation Obstetrical History: OB History Para Term AB SAB TAB Ectopic Multiple Living 3 1 1 1 0 1 1 # Outcome Date GA Lbr Ray/2nd Weight Sex Delivery Anes PTL Lv 3 Current 2 Term 07/2012 39w0d 3685 g (8 lb 2 oz) Vag-Spont Y 1 Ectopic 2009 Gynecologic History: Abnormal pap smears: Yes Cervical procedures: LEEP; reports cervical scarring had to be cut away during her last vaginal delivery to allow for delivery STDs: No. Denies history of gonorrhea, chlamydia, trichomonas, herpes, HIV, syphilis Medical History: Past Medical History Diagnosis Date ??? History of anemia ??? 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 Nausea/vomiting in ??? Abnormal Pap smear of cervix LEEP 2004 She denies history of hypertension, diabetes, asthma or bleeding disorders. Psych History: Depression: Yes Anxiety: Yes Bipolar disorder: Yes Schizophrenia: No Not on any psych medications during . Reports mood has been up and down during this ; denies SI/HI. Surgeries: Past Surgical History Procedure Laterality Date ??? Cervical leep Curent Medications: Prior to Admission medications Medication Sig Start Date End Date Taking? Authorizing Provider Vit-Fe Fumarate-FA ( VITAMIN) 28-0.8 MG tablet Take 1 Tab by mouth once daily Yes Historical Provider, Doxylamine-Pyridoxine (DICLEGIS PO) Yes Historical Provider, metoclopramide (REGLAN) 10 MG tablet Take 10 mg by mouth 3 times daily before meals Yes Historical Provider, Allergies: No Known Allergies Social History: Social [...] breast, ovarian, or uterine cancer Objective: Vitals: 11/14/14192011/14/141923 BP: 119/68 Temp: 97.9 ??F Resp: 22 Weight: 217 lb 12.8 oz (98.793 kg) Heart Rate: A: 138bpm; B: 150bpm [place]: irritable Physical Exam: General: alert, cooperative, no distress Lungs: clear to auscultation bilaterally Heart: regular rate and rhythm Abdomen: gravid, non-tender Female Genitalia: external genitalia and introitus normal; vagina and cervix normal by visualization Extremities: non-tender bilaterally, edema absent Sterile speculum exam: Exam for ROM: Pooling: negative, Nitrazine: negative, Ferning: negative Wet Prep: no pathogens, WBCs negative Cervical Exam Dilation (cm): 0 (external os fingertip) Effacement: 25 Station: -3 Pelvimetry: Diagonal conjugate reached: No Ischial Spines prominent: No Suprapubic arch, narrow: NoPelvic sidewalls divergent: No Gynecoid pelvis: Yes Bedside ultrasound (per Dr. Griffiths): Presentation: A: vertex; B: vertex Placenta: A: anterior; B: posterior Deepest vertical pocket: A: 6.39cm; B: 4.01cm Cervical Length(TVUS): 3.15-3.68cm, with no dynamic changes Current Lab Review: Results for orders placed during the hospital encounter of 11/14/14 URINALYSIS ROUTINE W/REFLEX TO CULTURE Result Value Ref Range Color UA Yellow Straw, Yellow, Dark Yellow Clarity UA Clear Specific [place] UA 1.010 1.005-1.030 pH UA 6.5 5.0-8.0 pH Protein UA Negative Negative Blood UA Negative Negative Leukocyte UA Negative Negative Nitrite UA Negative Negative Glucose UA Negative Negative Ketone UA Negative Negative Bili UA Negative Negative Urobilinogen UA 0.2 0.1-1.0 EU/dL Reflex Status Culture not indicated Assessment/Plan: 29 y.o. @ 15w5d 1. Rule out PPROM 1. Exam negative for rupture. 2. DVP within normal limits for twin A and twin B 2. Rule out PTL 1. Cervix closed/25/-3 at check and recheck. 2. Cervical Length: 3.15-3.68cm 3. UA negative for UTI. 4. SSE negative for infection. 3. FWB reassuring 4. F/u: at next scheduled appointment with Dr. Tamez on 11/23/14 5. Dispo: discharged to home Discussed with Dr. Buenrostro and Dr. Nicole. Darío Tabor MD 11/14/2014 10:20 PM Associated attestation - Alfreda Nicole MD - 11/14/2014 11:39 PM CDT I have discussed this patient with Dr. Tabor and agree with the above notation. Briefly she mark 29 yo at 15w5d with di/di twins who presents with complaints of leaking fluid. Her exam was neg for ROM. Bedside ultrasound confirmed normal DVPs on both twins and normal heart tones. Her cervix was closed. She was discharged home with SAB precautions. F/u in [facility] office on 11/23. Alfreda Nicole MD 11/14/2014 11:39 PM documented in this encounter Procedure Notes * Ruthy Griffiths MD - 11/14/2014 10:18 PM CDTProcedure(s): SONOGRAM - LIMITED Sonogram for rule out Previable PPROM Abdominal Baby A: VTX DVP 6.39 FHR 138 Anterior placenta Baby B: vtx DVP 4.01 FHR 150 Posterior placenta Transvaginal sonogram Cervical length 3.15-3.68 No dynamic change Reassuring and stable Ruthy Griffiths MD 11/14/2014 10:21 PM Associated attestation - Jose Antonio Perez MD - 11/15/2014 3:38 PM CDT I agree with the interpretation for the attached procedures. Impression: Reassuring testing Recommend: follow up studies as clinically indicated. Jose Antonio Perez MD documented in this encounter Plan of Treatment Not on file documented as of this encounter Procedures Procedure Name Priority Date/Time Associated Diagnosis Comments IMAGING/RADIOLOGY/XR AY RESULTS ORDER 12/01/2014 7:24 PM CDT URINALYSIS REFLEX MICROSCOPIC REFLEX CULTURE STAT 11/14/2014 9:06 PM CDT (HCC) documented in this encounter Results * IMAGING/RADIOLOGY/XRAY RESULTS ORDER (12/01/2014 7:24 PM CDT) Anatomical Region Laterality Modality Other Narrative 12/01/2014 7:24 PM CDT Ordered by an unspecified provider. Scanned Document IMAGING * URINALYSIS ROUTINE W/REFLEX TO CULTURE (11/14/2014 9:06 PM CDT) Color UA Yellow Straw, Yellow, Dark Yellow 11/14/2014 9:22 PM CDT [facility] Clarity UA Clear 11/14/2014 9:22 PM CDT [facility] Specific [place] UA 1.010 1.005 - 1.030 11/14/2014 9:22 PM CDT [facility] pH UA 6.5 5.0 - 8.0 pH 11/14/2014 9:22 PM CDT [facility] Protein UA Negative Negative 11/14/2014 9:22 PM CDT [facility] Blood UA Negative Negative 11/14/2014 9:22 PM CDT [facility] Leukocyte UA Negative Negative 11/14/2014 9:22 PM CDT [facility] Nitrite UA Negative Negative 11/14/2014 9:22 PM CDT [facility] Glucose UA Negative Negative 11/14/2014 9:22 PM CDT [facility] Ketone UA Negative Negative 11/14/2014 9:22 PM CDT [facility] Bilirubin UA Negative Negative 11/14/2014 9:22 PM CDT [facility] Urobilinogen UA 0.2 0.1 - 1.0 EU/dL 11/14/2014 9:22 PM CDT [facility] Reflex Status Culture not indicated 11/14/2014 9:22 PM CDT [facility] Urine URINE SPECIMEN OBTAINED BY CLEAN CATCH PROCEDURE / Unknown Collection / Unknown 11/14/2014 9:06 PM CDT 11/14/2014 9:11 PM CDT [facility]i [facility] - URINALYSIS ORD ERABLES Performing Organization Address City/State/[facility] Co de Phone Number [facility] [address] [place] [address] documented in this encounter Visit Diagnoses Diagnosis (HCC)- Primary Encounter for suspected PROM, with rupture of membranes not found Suspected problem with amniotic cavity and membrane not found History of LEEP (loop electrosurgical excision procedure) of cervix complicating , second trimester (HCC) Dichorionic diamniotic twin (HCC) Twin , antepartum product of IVF affected by other surgical operations on mother during History of LEEP (loop electrosurgical excision procedure) of cervix complicating (HCC) Other congenital or acquired abnormality of cervix, unspecified as to episode of care in Depression Depressive disorder, not elsewhere classified Obesity Obesity, unspecified Supervision of high risk in second trimester (HCC) Unspecified high-risk History of ectopic Personal history of other genital system and obstetric disorders documented in this encounter Care Teams Ophthalmic Aide Relationship Specialty Start Date End Date Steve Davis MD [address] [place] [address] PCP - General Family Medicine 11/14/14 03/29/15 documented as of this encounter
--- OUTSIDE RECORDS SUMMARY | 2024-04-29 22:43 | XMS_ITS | Encounter Summary ---
Author Organization [facility] Address [address] [place] [address] Care Team Providers Care [employer] Consultant Name Role Phone Steve Davis MD Primary Care Provider [phone] Reason for Visit * Reason Comments Rupture of Membranes * Auth/Cert - Closed Specialty Diagnoses / Procedures Referred By Contac t Referred To Contact Obstetrics and Gynecology [facility] [address] [place] [address] Referral ID Status Reason Start Date Expiration Date Visits Re quested Visits Authorized [id number] Closed 03/11/2015 09/07/2015 1 Encounter Details Date Type Department Care Team (Latest Contact Info) Description 03/07/2015 1:56 PM INSPECTOR BALANCE TRUING - 03/07/2015 7:29 PM INSPECTOR BALANCE TRUING Hospital Encounter [facility] [address] [place] [address] Marciano Tamez MD [address] [id number] Obstetrics Discharge Disposition: Home or Self Care [...] Sign Reading Time Taken Comments Blood Pressure 133/73 03/07/2015 5:08 PM INSPECTOR BALANCE TRUING Pulse - - Temperature 36.8 ??C (98.3 ??F) 03/07/2015 2:15 PM CS T Respiratory Rate 18 03/07/2015 3:13 PM INSPECTOR BALANCE TRUING Oxygen Saturation 97% 03/07/2015 2:18 PM INSPECTOR BALANCE TRUING Inhaled Oxygen Concentration - - Weight 105.2 kg (232 lb) 03/07/2015 2:17 PM INSPECTOR BALANCE TRUING Height 167.6 cm (5' 6 ) 03/07/2015 2:17 PM INSPECTOR BALANCE TRUING Body Mass Index 37.45 03/07/2015 2:17 PM INSPECTOR BALANCE TRUING documented in this encounter Discharge Instructions * Discharge Instructions* Teresita Guzmán RN - 03/07/2015 7:26 PM INSPECTOR BALANCE [facility] [phone] [employer] [employer] documented in this encounter Medications at Time [...] as of this encounter Progress Notes * Teresita Guzmán RN - 03/07/2015 6:00 PM CST After talking with pt agrees to stay for PO potassium. Pt refuses monitoring. Refusal ofcare form signed and witnessed by Dr. Zabala. ECTOR BALANCE TRUING * Teresita Guzmán RN - 03/07/2015 5:45 PM CST To pt bedside. Pt sitting up in bed. Maternal HR tracing. Informed pt that I was going to adjust monitors. Pt became teary eyed and took off monitors stating I am uncomfortable and I don't feel good, I just want to sign the papers and go. Pt calmed. Talked with pt and encouraged her to stay. Pt continues to state she just wants to leave stating I really just want to sign the papers and leave. Again, encouraged pt to stay and speak with physician. Pt agrees. Dr. Gwen Anand aware and at pt bedside. ECTOR BALANCE TRUING * Teresita Guzmán RN - 03/07/2015 4:00 PM CST To pt bedside to adjust efm on Baby B. Pt sitting in high fowlers position. Efm adjusted, fht's unable to trace continuously due to maternal position. When asked pt if I could sit her back to find baby B, she stated I cannot sit back, I will pass out. Dr. Zabala aware and Rn was then instructedby MD to have pt sign form refusing monitoring( due to pt inability to maintain position thatwill allow continuous tracing of fht's on baby B.) When pt was informed of this she became upset and stated I am not signing anything, I want to talk to the doctor. Pt calmed. Dr. Zabala aware and to bedside to speak with pt. ECTOR BALANCE TRUING documented in this encounter H&P Notes * Yessi Ashley MD - 03/07/2015 2:39 PM CST PGY-1 Obstetric H&P CC: I think my water broke and my shoulders and thighs are weak since taking procardia on Saturday HPI: 29 y.o. at 31w6d weeks gestation. Dating: LMP Estimated Date of Delivery: 05/03/15 Care: With Rosetta MCGOVERN Patient's is complicated by: Patient [...] Salpingectomy in 2009 Currently, patient presents with leaking fluid since 3am. Patient had intercourse last night at 7pmwith no barrier method. She also was seen in [facility] on Saturday, 03/04 with contractions and received procardia at that time. Since that time, she has felt weak and notes soreness of shoulders and thighs negative Ctx. positive LOF. negative VB. Movement positive. Review of Symptoms: No DELVALLE/vision change/RUQ pain No SOB/CP/CT No nausea/ vomiting/ fevers/chills/ diarrhea No dysuria/ hematuria/ urinary urgency/ irritation [...] 2009 ??? Lap salpingostomy 2010 Curent Medications: Prior to Admission medications Medication Sig Start Date End Date Taking? Authorizing Provider ondansetron, disintegrating, (ZOFRAN ODT) 4 MG tablet Take 4 mg by mouth every 6 hours as needed for Nausea/Vomiting Allow tablet to dissolve on the tongue Yes Anabel Heath MD acetaminophen (TYLENOL) 500 MG tablet Take 500 mg by mouth every 4 hours as needed for Fever or Pain Maximum allowable Acetaminophen amount = 4 Grams (4000 mg) / 24 hours. Anabel Heath MD Vit-Fe Fumarate-FA ( VITAMIN) [...] No history of uterine cancer Objective: Vitals: 03/07/15 1410 03/07/15 1415 03/07/15 1417 BP: 121/71 Temp: 98.3 ??F Resp: 18 Weight: 232 lb (105.235 kg) SpO2: 96% External Monitoring: Physical Exam: General: alert, cooperative, no distress Lungs: normal respiratory rate, non-labored breathing Heart: regular rate Abdomen: Gravid. soft without mass, non-tender, with normal bowel sounds Female Genitalia: external genitalia and intoitus normal; vagina and cervix normal by visualization Extremities: normal, non-tender bilaterally. Edema absent Neuro: CN 2-12 grossly intact, 5/5 strength x4 with DTRs +1 bilaterally in both upper and lower extremities Sterile speculum exam: Bright light exam: Negative Exam for ROM: Pooling: negative, Nitrizine: negative, Fern: negative Wet Prep: no pathogens and positive clue cells, WBCs negative Cervical Exam 2/0/-3 Pelvimetry: Diagonal conjugate reached: No Ischial Spines prominent: No Suprapubic arch, narrow: NoPelvic sidewalls divergent: No Gynecoid pelvis: Yes Bedside ultrasound: Deferred Current Lab Rewiew: Hospital Encounter on 03/07/15 URINALYSIS ROUTINE W/REFLEX TO CULTURE Result Value Ref Range Color UA Yellow Straw, Yellow, Dark Yellow Clarity UA Cloudy Specific Stout UA 1.010 1.005-1.030 pH UA 7.0 5.0-8.0 pH Protein UA Negative Negative Blood UA 2+ (Abnormal) Negative Leukocyte UA 2+ (Abnormal) Negative Nitrite UA Negative Negative Glucose UA Negative Negative Ketone UA Negative Negative Bili UA Negative Negative Urobilinogen UA 0.2 0.1-1.0 EU/dL WBC UA Auto 5-10 (Abnormal) 0-2, 2-5 # /hpf RBC UA Auto 20-50 (Abnormal) 0-2, 2-5 # /hpf Epithelial Cell UA Auto 5-10 (Abnormal) 0-2, 2-5 # /hpf Bacteria UA Auto 1+ (Abnormal) None seen Reflex Status Culture to follow CBC W AUTO DIFFERENTIAL Result Value Ref Range WBC 10.4 4.4-10.7 x10^9/L WBC Corrected x10^9/L RBC 3.76 (L) 3.80-5.20 x10^12/L Hgb 9.6 (L) 12.0-15.6 gm/dL HCT 29.2 (L) 35.9-45.5 % MCV 77.7 (L) 80.7-98.3 fl MCH 25.5 (L) 26.7-34.0 pg MCHC 32.9 30.8-35.9 gm/dL Plt Ct 185 153-416 x10^9/L RDW-CV 13.3 12.1-14.9 % MPV 11.8 9.4-12.9 fl Neutro 76.8 (H) 44.0-73.0 % Lymph 15.1 (L) 20.0-43.0 % Pima 6.7 5.0-13.0 % Eos 0.7 0.0-6.0 % Baso 0.1 0.0-2.0 % Immature Grans 0.6 0-1 % Neutro Abs 8.02 (H) 2.01-7.14 x10^9/L Lymph Abs 1.58 1.07-3.94 x10^9/L Pima Abs 0.70 0.26-1.07 x10^9/L Eosin Abs 0.07 0-0.47 x10^9/L Baso Abs 0.01 0-0.08 x10^9/L Immature Grans (Abs) 0.06 0.00-0.06 x10^9/L COMPREHENSIVE METABOLIC PANEL Result Value Ref Range Glucose 80 74-106 mg/dL Sodium 137 136-145 mmol/L Potassium 2.8 (L) 3.5-5.1 mmol/L Chloride 107 98-107 mmol/L CO2 23 22-31 mmol/L Calcium 8.7 8.5-10.1 mg/dL Anion Gap 7 5-20 mmol/L BUN 2 (L) 7-21 mg/dL Creatinine 0.49 (L) 0.50-1.30 mg/dL Alk Phos 141 (H) 38-126 U/L ALT/SGPT 21 12-78 U/L AST/SGOT 28 5-40 U/L Protein Total 6.1 (L) 6.4-8.2 gm/dL Albumin 2.4 (L) 3.4-5.0 gm/dL Bili Total 0.3 0.2-1.0 mg/dL eGFR MDRD >60 >60 mL/min/1.73m2 eGFR MDRD AFR AMR >60 >60 mL/min/1.73m2 GLUCOSE PROTEIN KETONE URINE - POINT OF CAR Result Value Ref Range Glucose UA negative Negative Protein UA 1+ Negative Ketone UA negative Negative QC Verified Yes Yes labs - will request if admitted Assessment/Plan: 29 y.o. @ 31w6d 1. Rule out PPROM 1. SSE: Negative exam for Rupture 2. Cervix 2/0/-3 3. Discuss with patient other causes of leaking that include but are not limited to leaking urine, due to pressure from head, physiologic discharge of , post-coital fluid discharge 4. Patient given labor warnings, and instructions on when to return to triage 2. Muscle weakness 1. Patient reports onset with taking 10mg procardia in [facility] on 03/04/15 2. Describes weakness in shoulders, thighs, with inability to get off of couch, out of bed, climb stairs 3. Neuro exam unrevealing 4. Most likely 2/2 anemia - Hgb 10.0 on 1. 2. Dispo pending Discussed with Dr. Dion Anand MD Agree with above H&P, discussed with Dr. Anand Assessment/Plan: 29 y.o. @ 31w6d 1. Rule out PPROM 5. SSE: Negative exam for Rupture 6. Cervix 2/0/-3 7. Discuss with patient other causes of leaking that include but are not limited to leaking urine, due to pressure from head, physiologic discharge of , post-coital fluid discharge 8. Patient given labor warnings, and instructions on when to return to triage 2. Muscle weakness 9. Patient reports onset with taking 10mg procardia in [facility] on 03/04/15 10. Describes weakness in shoulders, thighs, with inability to get off of couch, out of bed, climb stairs 11. Neuro exam unrevealing 12. Most likely 2/2 anemia - Hgb 10.0 on 3. Hypokalemia - K 2.8 today - Given 40mEq KCL PO in [facility] - Discussed need for continued outpatient supplementation but pt left without prescription F/u: in clinic as shceduled with Dr. Tamez this Dispo: Discharge home with labor precautions Yessi Ashley MD 03/07/2015 6:45 PM ECTOR BALANCE [employer]UING Associated attestation - Tigist Pathak MD - 03/09/2015 2:45 AM INSPECTOR BALANCE TRUING R4 High Risk Chief Note I have discussed the patient with Dr. Ashley. The patient presents with LOF, weakness. She is high risk for: Patient Active Problem List Diagnosis ??? Dichorionic [...] Maternal iron deficiency anemia affecting , antepartum Patient at 31w with LOF. Exam negative for rupture and RAMÍREZ Not performed. Patient also reported weakness and potassium was found to be 2.8. She was given oral replacement which she tolerated and discharged to home with prescription. To follow up in [facility] office on . Tigist Pathak MD 03/09/2015 2:43 AM documented in this encounter Plan of Treatment Not on file documented as of this encounter Procedures Procedure Name Priority Date/Time Associated Diagnosis Comments CBC W AUTO DIFFERENTIAL STAT 03/07/2015 5:06 PM INSPECTOR BALANCE TRUING Proximal weakness of limb COMPREHENSIVE METABOLIC PANEL STAT 03/07/2015 5:06 PM INSPECTOR BALANCE TRUING Proximal weakness of limb PHOSPHORUS BLOOD Add on 03/07/2015 5:06 PM INSPECTOR BALANCE TRUING Dichorionic diamniotic twin (HCC) MAGNESIUM BLOOD Add on 03/07/2015 5:06 PM INSPECTOR BALANCE TRUING Dichorionic diamniotic twin (HCC) URINALYSIS REFLEX MICROSCOPIC REFLEX CULTURE Routine 03/07/2015 3:52 PM INSPECTOR BALANCE TRUING Supervision of high risk in third trimester (HCC) CULTURE URINE Routine 03/07/2015 3:52 PM INSPECTOR BALANCE TRUING Supervision of high risk in third trimester (HCC) GLUCOSE PROTEIN KETONE URINE - POINT OF CAR Routine 03/07/2015 1:56 PM INSPECTOR BALANCE TRUING documented in this encounter Results * MAGNESIUM BLOOD (03/07/2015 5:06 PM INSPECTOR BALANCE TRUING) Magnesium 1.7 1.6 - 2.6 mg/dL 03/07/2015 6:50 PM INSPECTOR BALANCE TRUING [facility] Blood BLOOD SPECIMEN / Unknown Venipuncture / Unknown 03/07/2015 5:06 PM INSPECTOR BALANCE TRUING 03/07/2015 6:33 PM INSPECTOR BALANCE TRUING Yessi Ashley MD LAB - CHEMISTRY MYLESMonica FERNANDESPAIGE Performing Organization Address [facility]/ZIP Co de Phone Number [facility] [address] [place], [place] [id number] * PHOSPHORUS BLOOD (03/07/2015 5:06 PM INSPECTOR BALANCE TRUING) Pathologist [facility] Phosphorus 2.7 2.5 - 4.9 mg/dL 03/07/2015 6:[address] [facility] Blood BLOOD SPECIMEN / Unknown Venipuncture / Unknown 03/07/2015 5:06 PM INSPECTOR BALANCE TRUING 03/07/2015 6:33 PM INSPECTOR BALANCE TRUING Yessi Ashley MD LAB - CHEMISTRY CJ DOMPAIGE Performing Organization Address [facility] Co de Phone Number [facility] [address] [place] [phone] * (ABNORMAL) COMPREHENSIVE METABOLIC PANEL (03/07/2015 5:06 PM INSPECTOR BALANCE TRUING) [facility] Glucose 80 74 - 106 mg/dL 03/07/2015 5:[address] [facility] Sodium 137 136 - 145 mmol/L 03/07/2015 5:[address] [facility] Potassium 2.8(L) 3.5 - 5.1 mmol/L 03/07/2015 5:[address] [facility] Chloride 107 98 - 107 mmol/L 03/07/2015 5:[address] [facility] CO2 23 22 - 31 mmol/L 03/07/2015 5:[address] [facility] Calcium 8.7 8.5 - 10.1 mg/dL 03/07/2015 5:[address] [facility] Anion Gap 7 5 - 20 mmol/L 03/07/2015 5:[address] [facility] BUN 2(L) 7 - 21 mg/dL 03/07/2015 5:[address] [facility] Creatinine 0.49(L) 0.50 - 1.30 mg/dL 03/07/2015 5:[address] [facility] Alkaline Phosphatase 141(H) 38 - 126 U/L 03/07/2015 5:[address] [facility] ALT 21 12 - 78 U/L 03/07/2015 5:[address] [facility] AST 28 5 - 40 U/L 03/07/2015 5:[address] [facility] Protein Total 6.1(L) 6.4 - 8.2 gm/dL 03/07/2015 5:[address] [facility] Albumin 2.4(L) 3.4 - 5.0 gm/dL 03/07/2015 5:[address] [facility] Bilirubin Total 0.3 0.2 - 1.0 mg/dL 03/07/2015 5:[address] [facility] eGFR by MDRD >60 >60 mL/min/1.7 3m2 03/07/2015 5:[address] [facility] eGFR by MDRD >60 >60 mL/min/1.7 3m2 03/07/2015 5:[address] [facility] Blood BLOOD SPECIMEN / Unknown Venipuncture / Unknown 03/07/2015 5:06 PM INSPECTOR BALANCE TRUING 03/07/2015 5:12 PM [facility] Juan Carlos Anand MD LAB - CHEMISTRY [facility] Organization Address City/State/ZIP Co de Phone Number [facility] [address] [place] [address] * (ABNORMAL) CBC W AUTO DIFFERENTIAL (03/07/2015 5:06 PM INSPECTOR BALANCE TRUING) [facility] Signature WBC 10.4 4.4 - 10.7 x10^9/L 03/07/2015 5:[address] [facility] WBC Corrected x10^9/L 03/07/2015 5:[address] [facility] RBC 3.76(L) 3.80 - 5.20 x10^12/L 03/07/2015 5:[address] [facility] Hemoglobin 9.6(L) 12.0 - 15.6 gm/dL 03/07/2015 5:[address] [facility] Hematocrit 29.2(L) 35.9 - 45.5 % 03/07/2015 5:[address] [facility] MCV 77.7(L) 80.7 - 98.3 fl 03/07/2015 5:[address] [facility] MCH 25.5(L) 26.7 - 34.0 pg 03/07/2015 5:[address] [facility] MCHC 32.9 30.8 - 35.9 gm/dL 03/07/2015 5:[address] [facility] Platelet Count 185 153 - 416 x10^9/L 03/07/2015 5:[address] [facility] RDW-CV 13.3 12.1 - 14.9 % 03/07/2015 5:[address] [facility] MPV 11.8 9.4 - 12.9 fl 03/07/2015 5:[address] [facility] Neutrophils % 76.8(H) 44.0 - 73.0 % 03/07/2015 5:[address] [facility] Lymphocytes % 15.1(L) 20.0 - 43.0 % 03/07/2015 5:[address] [facility] Monocytes % 6.7 5.0 - 13.0 % 03/07/2015 5:[address] [facility] Eosinophils % 0.7 0.0 - 6.0 % 03/07/2015 5:[address] [facility] Basophils % 0.1 0.0 - 2.0 % 03/07/2015 5:[address] [facility] Immature Granulocytes 0.6 0 - 1 % 03/07/2015 5:[address] [facility] Neutrophil Absolute 8.02(H) 2.01 - 7.14 x10^9/L 03/07/2015 5:[address] [facility] Lymphocytes Absolute 1.58 1.07 - 3.94 x10^9/L 03/07/2015 5:[address] [facility] Monocytes Absolute 0.70 0.26 - 1.07 x10^9/L 03/07/2015 5:[address] [facility] Eosinophils Absolute 0.07 0 - 0.47 x10^9/L 03/07/2015 5:[address] [facility] Basophils Absolute 0.01 0 - 0.08 x10^9/L 03/07/2015 5:[address] [facility] Immature Granulocytes Absolute 0.06 0.00 - 0.06 x10^9/L 03/07/2015 5:[address] [facility] Blood BLOOD SPECIMEN / Unknown Venipuncture / Unknown 03/07/2015 5:06 PM INSPECTOR BALANCE TRUING 03/07/2015 5:12 PM INSPECTOR BALANCE TRUING Juan Carlos Anand MD LAB - HEMATOLOGY ORD ERABLES [facility] [address] [place] [address] * CULTURE URINE (03/07/2015 3:52 PM INSPECTOR BALANCE TRUING) Culture 10,000-50,000 CFU/mL normal urogenital augustine SATURNINO 03/09/2015 8:07 AM INSPECTOR BALANCE TRUING [facility] Urine URINE SPECIMEN OBTAINED BY CLEAN CATCH PROCEDURE / Unknown Collection / Unknown 03/07/2015 3:52 PM INSPECTOR BALANCE TRUING 03/07/2015 4:06 PM INSPECTOR BALANCE TRUING Juan Carlos Anand MD LAB - MICROBIOLOGY O RDERABLES Performing Organization Address City/[facility]/ZIP Co de Phone Number [facility] [address] [place] [address], [facility] [phone] * (ABNORMAL) URINALYSIS ROUTINE W/REFLEX TO CULTURE (03/07/2015 3:52 PM INSPECTOR BALANCE TRUING) Color UA Yellow Straw, Yellow, Dark Yellow 03/07/2015 4:[address] [facility] Clarity UA Cloudy 03/07/2015 4:[address] [facility] Specific Stout UA 1.010 1.005 - 1.030 03/07/2015 4:[address] [facility] pH UA 7.0 5.0 - 8.0 pH 03/07/2015 4:[address] [facility] Protein UA Negative Negative 03/07/2015 4:[address] [facility] Blood UA 2+(A) Negative 03/07/2015 4:[address] [facility] Leukocyte UA 2+(A) Negative 03/07/2015 4:21 PM INSPECTOR BALANCE TRUING [facility] Nitrite UA Negative Negative 03/07/2015 4:21 PM INSPECTOR BALANCE TRUING [facility] Glucose UA Negative Negative 03/07/2015 4:21 PM INSPECTOR BALANCE TRUING [facility] Ketone UA Negative Negative 03/07/2015 4:[address] [facility] Bilirubin UA Negative Negative 03/07/2015 4:[address] [facility] Urobilinogen UA 0.2 0.1 - 1.0 EU/dL 03/07/2015 4:[address] [facility] WBC UA Auto 5-10(A) 0-2, 2-5 # /hpf 03/07/2015 4:21 PM INSPECTOR BALANCE TRUING [facility] RBC UA Auto 20-50(A) 0-2, 2-5 # /hpf 03/07/2015 4:21 PM INSPECTOR BALANCE TRUING [facility] Epithelial Cell UA Auto 5-10(A) 0-2, 2-5 # /hpf 03/07/2015 4:21 PM INSPECTOR BALANCE TRUING [facility] Bacteria UA Auto 1+(A) None seen 03/07/2015 4:21 PM INSPECTOR BALANCE TRUING [facility] Reflex Status Culture to follow 03/07/2015 4:21 PM INSPECTOR BALANCE TRUING [facility] Urine URINE SPECIMEN OBTAINED BY CLEAN CATCH PROCEDURE / Unknown Collection / Unknown 03/07/2015 3:52 PM INSPECTOR BALANCE TRUING 03/07/2015 4:06 PM INSPECTOR BALANCE TRUING Juan Carlos Anand MD LAB - URINALYSIS ORD ERABLES Performing Organization Address City/[facility] Co de Phone Number [facility] [address] [place] [address] * GLUCOSE PROTEIN KETONE URINE - POINT OF CAR (03/07/2015 1:56 PM INSPECTOR BALANCE TRUING) Glucose UA negative Negative [facility] Protein UA 1+ Negative [facility] Ketone UA negative Negative [facility] QC Verified Yes Yes [facility] POC T TESTING Urine specimen (specimen) URINE / Unknown 03/07/2015 1:56 PM INSPECTOR BALANCE TRUING Juan Carlos Anand MD LAB - POINT OF CARE ORDERABLES Performing Organization Address [facility] Co de Phone Number [facility] [address] [place] [address] documented in this encounter Visit Diagnoses Diagnosis Supervision of high risk in third trimester (HCC)- Primary Unspecified high-risk Proximal weakness of limb Other musculoskeletal symptoms referable to limbs Dichorionic diamniotic twin (HCC) Twin , antepartum documented in this encounter Administered Medications Inactive Administered Medications - up to 3 most recent administrations Medication Order MAR Action Action Date Dose Rate Site potassium chloride (KLOR-CON M) tablet 40 mEq 40 mEq, Oral, ONCE, 1 dose, On 03/07/15 at 1830, Do not crush or chew. $ Given 03/07/2015 6:26 PM INSPECTOR BALANCE TRUING 40 mEq documented in this encounter Active and Recently Administered Medications Times are shown in INSPECTOR BALANCE TRUING. Scheduled Medication Order 03/05/2015 03/06/2015 03/07/2015 potassium chloride (KLOR-CON M) tablet 40 mEq (COMPLETED) 40 mEq, Oral, ONCE, 1 dose, On 03/07/15 at 1830, Do not crush or chew. 1826 ($ Given - Prov ider: Heide Carter RN) documented in this encounter Care Teams [employer] Consultant Relationship Specialty Start Date End Date Stvee Davis MD [address] [place] [address] PCP - General Family Medicine 11/14/14 03/29/15 documented as of this encounter
--- OUTSIDE RECORDS SUMMARY | 2024-04-29 22:43 | XMS_ITS | Encounter Summary ---
Author Organization [facility] Address [address] [place], [place] [address] [address] Care Team Providers Care Pump Servicer Helper Name Role Phone Steve Davis MD Primary Care Provider [phone] Reason for Visit * Auth/Cert Specialty Diagnoses / Procedures Referred By Contac t Referred To Contact Obstetrics and Gynecology Procedures SECTION EMERGENCY [facility] 6w Mother Baby [address] [place] [address] Referral ID Status Reason Start Date Expiration Date Visits Re quested Visits Authorized [id number] 03/31/2015 09/27/2015 1 Encounter Details Date Type Department Care Team (Late st Contact Info) Description 03/30/2015 Surgery [facility] 5 LDR [address] [place], [place] [id number] Elena Wei MD [address] [facility] [address] [place], [place] [id number] SECTION EMERGENCY Surgery Details Date/Time Status Location OR Service Patient Class Case Class Case Type Trauma Case? 03/30/2015 Posted [facility] Obstetrics Inpatient Panel 1 Procedure LRB Anes Op Region Wound Class Comments SECTION EMERGENCY N/A Epidural Abdomen Harsha an Contaminated Surgeon Surgeon Role Service Panel Elena Wei MD Primary Obstetrics 1 Primo Melendez MD Resident - Assisting Obstetrics 1 Clara Saucedo MD Resident - Assisting Obstetrics 1 Case Notes documented in this encounter Social History Tobacco [...] Comments Blood Pressure 156/90 04/03/2015 8:00 AM PET CARE WORKER Pulse 83 04/03/2015 8:00 AM PET CARE WORKER Temperature 36.7 ??C (98.1 ??F) 04/03/2015 8:00 AM CS T Respiratory Rate 16 04/03/2015 8:00 AM PET CARE WORKER Oxygen Saturation 96% 03/31/2015 3:07 AM PET CARE WORKER Inhaled Oxygen Concentration - - Weight - [...] Tabor MD - 04/20/2015 1:29 PM CST painter assistant Discharge Summary 04/20/2015, 1:29 PM Date of Admission: 03/30/2015 Date of Discharge: 04/03/2015 Admission Diagnosis: 30 y.o. at 35w1d with DCDA twins, PTL, preeclampsia without severe features, bipolar disorder Discharge Diagnosis: 30 y.o. s/p section Service: Maternal Medicine Consults: Case Management HPI: Oanh Ortiz is a 30 y.o. at 35w1d; care with [facility]. She presented with increased contractions after being [...] for the patient's : Vasile Ortiz September [[id number]] Date of 03/30/2015 Time of : 9:26 PM Sex: Female Weight: 2480 g (5 lb 7.5 oz) (1 min): 7 (5 min): 8 (10 min): Information for the patient's : Cortney Ortiz [[id number]] Date of 03/30/2015 Time of : 9:27 [...] results for input(s): ABORH in the last 24592 hours. Recent Labs Component Name 03/31/15 0519 03/30/15200003/30/1542103/29/15 0924 WBC - 12.4* 10.4 8.2 HGB [...] 1 Cap by mouth 2 times daily Leander, Sruti ibuprofen 600 MG tablet Commonly known as: MOTRIN Take 1 Tab by mouth every 6 hours as needed for Pain Leeccrashawn, Sruti lanolin ointment Commonly known as: LANOLIN Apply to affected area as needed (Sore or cracked nipples.) Leeccrashawn, Sruti oxyCODONE-acetaminophen 5-325 MG tablet Commonly known as: PERCOCET Take 1 Tab by mouth every 4 hours as needed Leeccrashawn, Sruti CHANGE how you take these medications Instructions Authorizing Provider * ferrous sulfate 325 (65 FE) MG tablet What changed: Another medication with the same name was added. Make sure you understand how and when to take each. Take 1 Tab by mouth 2 times daily with morning and evening meal Frisse, Clara * ferrous sulfate 325 (65 FE) MG tablet What changed: You were already taking a medication with the same name, and this prescription was added. Make sure you understand how and when to take each. Take 1 Tab by mouth 2 times daily with morning and evening meal SurSr ashleyuti * Notice: This list has 2 medication(s) [...] 4 Grams (4000 mg) / 24 hours. gffklstffc-dqkvumlytipsx-yasmpbve 50-325-40 MG tablet Commonly known as: FIORICET [...] Comments Your discharge diagnosis is delivery delivered [[id number]] No special diet needed Resume your normal [...] 6 weeks. Contact your provider Call your ASSOCIATE DRAFTER if you have questions or concerns, or [...] weeks Darío Tabor MD 04/20/2015 1:29 PM CARE WORKER documented in this encounter Discharge Instructions * Discharge Instructions* Nitza Bliss RN - 04/03/2015 1:24 PM PET CARE WORKER DELIVERED MOTHER DISCHARGE INSTRUCTIONS Refer to the Booklet given during your stay for more information. Please contact your home designer for the followin. Any burning or itching [...] example: your cell phone and cell phone baggage and mail agent. PLEASE REMEMBER: 1. Always place your on his/her back to sleep. 2. Always use a car safety seat when transporting your child. CARE WORKER documented in this encounter Medications at Time [...] NICU. Nitza Bliss RN 04/03/2015 4:40 PM CARE WORKER * Jose Antonio Perez MD - 04/03/2015 [...] Data: Recent Labs Component Name 03/31/15 0519 03/30/15200003/30/1542103/29/15 0924 WBC - 12.4* 10.4 8.2 HGB [...] Discharge to home. Jose Antonio Perez MD CARE WORKER * Yady Jones RN - 04/03/2015 5:49 AM CST Vital signs stable and assessment within normal limits. Up ad maria elena, voiding without difficulty. Ambulating in hallway. Tolerating regular diet. and bonding well with baby A. Supplementing with formula and pumped breast milk. Baby B in NICU. CARE WORKER * Nitza Bliss RN - 04/02/2015 6:08 [...] home. Nitza Bliss RN 04/02/2015 6:10 PM CARE WORKER * Jose Antonio Perez MD - 04/02/2015 [...] Data: Recent Labs Component Name 03/31/15 0519 03/30/15200003/30/1542103/29/15 0924 WBC - 12.4* 10.4 8.2 HGB [...] Continue routine care. Jose Antonio Perez MD CARE WORKER * Brooke Sheikh, RIYA - 04/02/2015 6:35 AM CST VSS. Up ad maria elena. Caring for infant appropriately. , supplementing breastfeedingsand then pumping to establish breastmilk supply and help to prevent further infant weight loss. Taking scheduled ibuprofen and percocet prn for abd incision discomfort and back discomfort. LCTA carey. Abd round and soft with bs + and + flatus passed. Abd incision intact and wnl. Fu/2. Scant rubra lochia. Verbalized that she's hopeful and excited that other infant transfers from NICU today. Denies having any dizziness during the night. CARE WORKER * Brooke Sheikh, RIYA - 04/01/2015 8:19 PM CST Up ad maria elena. Denies having any dizziness since change of shift. Gait steady. Has pumped breasts. Informed of weight loss. Instructed to call if having difficulties with latch or getting infant to supplement breast feedings with formula. Further instructed to ensure that takes at least 15 ml of formula after breastfeedings. Also aware to pump breasts every 3 hours to establish good breastmilk supply. Pt and verbalized understanding all information received. CARE WORKER * Vivian Lynch RN - 04/01/2015 5:18 [...] baby breast feeds. Bonding well with newborns. CARE WORKER * Jose Antonio Perez MD - 04/01/2015 [...] Continue routine care. Jose Antonio Perez MD CARE WORKER * Jennifer Meza RN - 04/01/2015 5:51 AM CST Shift summary: VSS. Fundus firm and WDL. Bleeding has been small. Incision well approximated with no drainage noted. Pt up ad maria elena and voiding without difficulty. Pain controlled with scheduled motrinand PRN percocet. with nipple shield. Mom is pumping to establish milk production as well as for in NICU. Supplemented once this shift due to low blood sugars. rooming in with mom and bonding well. No concerns at this time. CARE WORKER * Yola Mueller RN - 03/31/2015 6:42 PM CST VSS. Pt up ad maria elena, voiding on her own. Tolerating regular diet. Pain is controlled with medication.Breast feeding well. To NICU to [place] with other infant. CARE WORKER * Jose Antonio Perez MD - 03/31/2015 [...] Continue routine care. Jose Antonio Perez MD CARE WORKER * Jennifer Meza RN - 03/31/2015 6:24 [...] well. Pain controlled with torodol and morphine. with nipple shield. Pumping for other twin in NICU. rooming in with mom and bonding appropriately. Father at bedside all night. Will continue to monitor. No concerns. CARE WORKER documented in this encounter H&P Notes * Elmira Ellis MD - 03/30/2015 7:46 PM CST PGY-1 Obstetric H&P CC: contractions HPI: 29 y.o. at 35w1d weeks gestation. Dating: by Last Menstrual Period and date of implantation (IVF). Estimated Date of Delivery: 05/03/15 Care: With [place] office Group [facility] Patient's is complicated by: Patient Active Problem [...] Start Date End Date Taking? Authorizing Provider xcmndisdok-uainivjrpyqnm-inkbovgg (FIORICET) 50-325-40 MG tablet Take 1 Tab [...] 03/30/2015 7:46 PM Addendum: 1. labor: cervix BBOW. GBS Negative. Baby B presenting and [...] this 6. H/o depression- without meds, stable CARE WORKER Associated attestation - Elena Wei MD - 03/30/2015 10:06 PM PET CARE WORKER Attending Admit Note: Obstetric H and P [...] M Vag-Spont EPI Y 1 Ectopic 2009 Medical History: Past [...] min Lab Review: Recent Labs Component Name 03/30/15200003/30/15 04203/29/15 0924 WBC 12.4* 10.4 8.2 HGB 10.6* [...] documented in this encounter Consult Notes * Terri Cardozo, INTERNATIONAL TRADE TEACHER - 04/01/2015 4:14 PM CSTAssociated Order(s): IP CONSULT TO CASE MANAGEMENT ASSOCIATE DRAFTER CASE MANAGEMENT PSYCHOSOCIAL ASSESSMENT OB History Para [...] M Vag-Spont EPI Y 1 Ectopic 2010 04/01/2015 Marital Status: Reason for referral-hx of bipolar dx ed at 18 and then again at 25. Pt states that she has a psych, that she sees in [place] and will call him if she starts to experience signs of depression. Pt is willing to return to [facility] if needed. Pt has no history of [...] Prior to Admission- Home/Apartment-Yes Patient lives with: husb and their 2 1/2 yr old son Father of baby- Is FOB involved? Yes Spouse, employed and very supportive. He has as a supportive family also. Does he want his name on the cert? Yes Does he want DNA testing? No Does he have other children to support? 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 CARE WORKER documented in this encounter Nursing Notes * [...] any questions. Le Hoffman RN, BSN, IBCLC CARE WORKER * Le Hoffman RN - 04/02/2015 3:47 PM CST Oanh continues to breastfeed, pump, and supplement. She states that her baby girl 1 is latchingwell with nipple shield. She started supplementing with formula after each per internet researcher order for weight loss. She pumps after each feed and sends breastmilk to NICU to supplement baby girl 2. Discussed milk supply/maintenance and encouraged to continue latching baby first prior to supplementing. She pumps at this time and obtains about 10ml colostrum. Discussed plan at home forpumping and . Encouraged her to call as needed. Le Hoffman RN, BSN, IBCLC CARE WORKER * Le King RN - 03/31/2015 9:45 [...] questions tonight. Le King RN, MSN, IBCLC CARE WORKER * Funmilayo Malik RN - 03/31/2015 5:45 [...] as needed. Funmilayo Malik RNC, BSN, IBCLC CARE WORKER documented in this encounter OR Notes * Operative - Primo Melendez MD - 03/30/2015 9:59 PM CST Operative Report for Section Oanh Ortiz [id number] 03/30/2015 Preoperative Diagnosis:29 y.o. Intrauterine 35w1d, non-reassuring tracing, labor, dichorionic/diamniotic twin gestation, preeclampsia without severe features Postoperative Diagnosis: same Procedure(s): Primary Section via Pfannensteil Incision Surgeon: Elena Wei MD Tread Builder: Primo Melendez MD; Clara Saucedo MD Type of anesthesia: Epidural with Duramorph and General Complications: laceration of bregma (2cm superficial) EBL: 1400 cc IV Fluids: 1600 cc Urine OutPut: 100 cc clear yellow urine at the end of the procedure. Drains: Villegas catheter Packing/Dressing: alison pad and sterile dressing(s) applied Findings: Information for the patient's : Diana, Baby Girl Oanh [[id number]] Date of 03/30/2015 Time of : 9:26 PM Sex: Female Weight: 2480 g (5 lb 7.5 oz) (1 min): 7 (5 min): 8 (10 min): Information for the patient's : Brandi Ortiz Girl 2 Oanh [[id number]] Date of 03/30/2015 Time of : 9:27 [...] able to repeat back to me the burden risks from her discussion this morning, and [...] The was handed off to the waiting NICU delivery team. The second twin was then [...] for the entire procedure. Primo Melendez MD CARE WORKER Associated attestation - Elena Wei MD - 03/30/2015 10:47 PM PET CARE WORKER I agree with the resident's documentation, with [...] Temp (48hrs) Max:98.5 ??F Estimated Blood Loss 03/30/20155 - 03/31/2015 0031 Mom's I/O Activity Estimated Blood Loss Anesthesia 1400 mL Total 1400 Mother's Information Patient Information Patient Name Sex Oanh Ortiz ([id number]) Female 1985 OB History Para Term AB SAB TAB Ectopic Multiple Living 3 2 1 1 1 0 1 1 3 # Outcome Date GA Labor/2nd Weight Sex Delivery Anes PTL Lv Name A1 A5 Location 3A 03/30/15 35w1d 2480 g (5 lb 7.5 oz) F , E Epidural,General Y 7 8 [facility] 3B 03/30/15 35w1d 2350 g (5 lb 2.9 oz) F , E Epidural,General Y 3 9 [facility] 2 Term 08/19/12 39w0d 3685 g (8 lb 2 oz) M Vag-Spont Epidural Y [facility] 1 Ectopic 2010 Transcribed Labs 03/30/15 0428 03/30/15 0417 RH [...] HCO3 BE Total CO2 O2 sat (calc) 03/30/152137 7.09(L) 75.9(HH) 7(L) 22.9 -9(L) 25 4 Brandi Ortiz [[id number]] Patient Information Patient Name Sex Brandi Ortiz ([id number]) Female 03/30/2015 Procedures No data filed Group [...] X-Ray? MD Notif? Counted By Verified By Wellington/Sharps/Sponges Closure of a Cavity within a Cavity Yes No Yes Eliazar Austin Madonna I., RN Instruments/Wellington/Sharps/Sponges Initial / Baseline Yes No Yes Eliazar Austin Germaine C, RN performed at 2119 Instruments/Wellington/Sharps/Sponges Beginning of Wound Closure Yes No Yes Eliazar Austin MadonnaI., RN Wellington/Sharps/Sponges Skin Closure / End of Procedure Yes No Yes Eliazar Austin Madonna I., RN performed at 2157 Delivery Type/ Presentation Delivery Type: , Emergent Presentation: Vertex Placenta Date and time: 03/30/2015 9:27 PM Appearance/Removal/Tests: Intact, Abnormal, Spontaneous, Expressed, Sent to Pathology Delivery Outcome Live ?: Yes Baby Vital Statistics Date: 12/2/15 Time: 2125 Weight: 2480 g Length: 19.09 Head Circum.: 12.99 1 Minute 1 Minute: Skin Color: 0 Grimace: 2 Breathin Heart Rate: 2 Muscle Tone: 1 Total: 7 5 Minute 5 Minute: Skin Color: 1 Grimace: 2 Breathin Heart Rate: 2 Muscle Tone: 1 Total: 8 Stabilization Equipment Checked by: Tati De Paz [...] 7 8 Diana Baby Girl Danny Hugo [[id number]] Patient Information Patient Name Sex Brandi Ortiz 2 ([id number]) Female 03/30/2015 Procedures No data filed Group [...] X-Ray? MD Notif? Counted By Verified By Wellington/Sharps/Sponges Closure of a Cavity within a Cavity Yes No Yes Eliazar Austin Madonna I., RN Instruments/Wellington/Sharps/Sponges Initial / Baseline Yes No Yes Eliazar Austin Germaine C, RN performed at 2119 Instruments/Wellington/Sharps/Sponges Beginning of Wound Closure Yes No Yes Eliazar Austin MadonnaI., RN Wellington/Sharps/Sponges Skin Closure / End of Procedure Yes [...] Rate: 2 Muscle Tone: 2 Total: 9 [place] Stabilization Equipment Checked by: chris Vigorous at [...] Emergent 1 minute 5 minutes 3 9 CARE WORKER documented in this encounter Plan of Treatment Not on file documented as of this encounter Procedures Procedure Name Priority Date/Time Associated Diagnosis Comments LAB RESULTS ORDER 04/04/2015 9:5 6 AM PET CARE WORKER HGB HCT PANEL AM Draw 03/31/2015 5:19 AM PET CARE WORKER PATHOLOGY TISSUE EXAM (STL) Routine 03/30/2015 9:52 PM PET CARE WORKER Diagnosis unknown BLOOD GASES CORD KASEY (ISTAT) Routine 03/30/2015 9:51 PM PET CARE WORKER BLOOD GASES CORD ART (ISTAT) Routine 03/30/2015 9:47 PM PET CARE WORKER BLOOD GASES CORD KASEY (ISTAT) Routine 03/30/2015 9:43 PM PET CARE WORKER BLOOD GASES CORD ART (ISTAT) Routine 03/30/2015 9:38 PM PET CARE WORKER CBC W AUTO DIFFERENTIAL STAT 03/30/2015 8:01 PM PET CARE WORKER SECTION (EMERGENCY) Case Notes documented in this encounter Results * LAB RESULTS ORDER (04/04/2015 9:56 AM PET CARE WORKER) Narrative 04/04/2015 9:56 AM PET CARE WORKER Ordered by an unspecified provider. Scanned Document LAB - THERAPEUTIC DR UG MONITORING ORDERABLES * (ABNORMAL) HGB HCT PANEL (03/31/2015 5:19 AM PET CARE WORKER) Hemoglobin 7.7(L) 12.0 - 15.6 gm/dL 03/31/2015 6:03 AM PET CARE WORKER [facility] Hematocrit 23.4(L) 35.9 - 45.5 % 03/31/2015 6:03 AM PET CARE WORKER [facility] Blood BLOOD SPECIMEN / Unknown Lab Venipuncture / Unknown 03/31/2015 5:19 AM PET CARE WORKER 03/31/2015 5:49 AM PET CARE WORKER Primo Melendez MD LAB - HEMATOLOGY ORD ERABLES [facility] [address] [place] [address] * GROSS + MICRO EXAM (STL) (03/30/2015 9:52 PM PET CARE WORKER) Case Report Surgical Pathology Report ? Case: [id number] ? Authorizing Provider: ??Elena Wei MD ?Collected: ? 03/30/2015 09:52 PM ? Ordering Location: ? [facility] 5 LDR ? Received: ?03/31/2015 07:54 AM ? Pathologist: ? Arlen Newell MD ? Specimen: ?Placenta 3rd Trimester ? 04/04/2015 3:23 PM PET CARE WORKER [facility] Final Diagnosis 1. Twin placenta: -- Dichorionic, diamniotic twin placenta 2. Placenta A with one cord clamp: -- Third trimester placenta, 640 grams -- Three-vessel umbilical cord with no pathologic diagnosis -- Chorioamniotic membranes with no pathologic diagnosis 3. Placenta B with two cord clamps: -- Three-vessel umbilical cord with no pathologic diagnosis -- Acute chorioamnionitis, mild MM/kaylee 04/04/2015 3:23 PM PET CARE WORKER [facility] Clinical History Preeclampsia without severe features, twin gestation. 04/04/2015 3:23 PM [facility] Gross Description Received in [...] are no lesions or masses grossly identified. Correctional Probation Officer sections are submitted as follows: A1 - Membranes and umbilical cord placenta A A2 - surface placenta A A3 - Maternal surface placenta A A4 - Membranes and umbilical cord placenta B A5 - and maternal surface placenta B A6 - Maternal surface placenta B DYT/dak 04/04/2015 3:23 PM [facility] Microscopic Description Sections of the [...] villitis or infarction. MM/kaylee 04/04/2015 3:23 PM [facility] Pathology/Cytolo gy ENTIRE PLACENTA / Unknown 03/30/2015 9:52 PM PET CARE WORKER 03/31/2015 7:54 AM PET CARE WORKER Elena Wei MD LAB - PATHOLOGY/CYTO LOGY ORDERABLES [facility] [address] [place] [address] * (ABNORMAL) BLOOD GASES CORD KASEY (ISTAT) (03/30/2015 9:51 PM PET CARE WORKER) pH Cord Venous POCT 7.30 7.28 - 7.40 pH 03/31/2015 5:57 AM [facility] pCO2 Cord Venous POCT 48(H) 35 - 45 mmHg 03/31/2015 5:57 AM [facility] pO2 Cord Venous POCT 26 22 - 33 mmHg 03/31/2015 5:57 AM [facility] HCO3 Cord Arterial POCT 24 22 - 24 mmol/L 03/31/2015 5:57 AM [facility] BE Cord Venous POCT Calc -3 -6 - 2 mmol/L 03/31/2015 5:57 AM [facility] TCO2 Cord Venous POCT 25 22 - 30 mmol/L 03/31/2015 5:57 AM [facility] O2 Saturation % Cord Venous Calc POCT 40 % 03/31/2015 5:57 AM [facility] Site CORD KASEY 03/31/2015 5:57 AM [facility] Sample iSTAT CORD V 03/31/2015 5:57 AM [facility] Blood CORD BLOOD SPECIMEN / Unknown 03/30/2015 9:51 PM PET CARE WORKER 03/31/2015 5:52 AM PET CARE WORKER Narrative [facility] - 03/31/2015 5:57 AM PET CARE WORKER Twin A Jose Antonio Perez MD LAB - POINT OF CARE ORDERABLES [facility] [address] [place] [address] * (ABNORMAL) BLOOD GASES CORD ART (ISTAT) (03/30/2015 9:47 PM PET CARE WORKER) pH Cord Arterial POCT 7.22 7.20 - 7.34 pH 03/31/2015 5:58 AM PET CARE WORKER [facility] pCO2 Cord Arterial POCT 59.6(H) 45 - 55 mmHg 03/31/2015 5:58 AM PET CARE WORKER [facility] pO2 Cord Arterial POCT 21 12 - 25 mmHg 03/31/2015 5:58 AM PET CARE WORKER [facility] HCO3 Cord Arterial POCT 24.1 15 - 29 mmol/L 03/31/2015 5:58 AM [facility] BE Cord Arterial POCT -5(L) -2.9 - 8.3 mmol/L 03/31/2015 5:58 AM PET CARE WORKER [facility] TCO2 Cord Arterial POCT 26 mmol/L 03/31/2015 5:58 AM [facility] O2 Saturation Cord Art % Calc POCT 25 % 03/31/2015 5:58 AM PET CARE WORKER [facility] Site CORD ART 03/31/2015 5:58 AM PET CARE WORKER [facility] Sample iSTAT CORD A 03/31/2015 5:58 AM [facility] Blood CORD BLOOD SPECIMEN / Unknown 03/30/2015 9:47 PM PET CARE WORKER 03/31/2015 5:51 AM PET CARE WORKER Narrative [facility] - 03/31/2015 5:58 AM PET CARE WORKER Twin A Jose Antonio Perez MD LAB - POINT OF CARE ORDERABLES [facility] [address] [place] [address] * (ABNORMAL) BLOOD GASES CORD KASEY (ISTAT) (03/30/2015 9:43 PM PET CARE WORKER) pH Cord Venous POCT 7.16(L) 7.28 - 7.40 pH 03/30/2015 10:27 PM PET CARE WORKER [facility] pCO2 Cord Venous POCT 62(H) 35 - 45 mmHg 03/30/2015 10:27 PM PET CARE WORKER [facility] pO2 Cord Venous POCT 12(L) 22 - 33 mmHg 03/30/2015 10:27 PM [facility] HCO3 Cord Arterial POCT 22 22 - 24 mmol/L 03/30/2015 10:27 PM [facility] BE Cord Venous POCT Calc -8(L) -6 - 2 mmol/L 03/30/2015 10:27 PM [facility] TCO2 Cord Venous POCT 24 22 - 30 mmol/L 03/30/2015 10:27 PM [facility] O2 Saturation % Cord Venous Calc POCT 8 % 03/30/2015 10:27 PM [facility] Site CORD KASEY 03/30/2015 10:27 PM [facility] Sample iSTAT CORD V 03/30/2015 10:27 PM [facility] Blood CORD BLOOD SPECIMEN / Unknown 03/30/2015 9:43 PM PET CARE WORKER 03/30/2015 10:27 PM [facility] Jose Antonio Perez MD LAB - POINT OF CARE ORDERABLES Performing Organization Address City/State/[facility] Co de Phone Number [facility] [address] [place] [address] * (ABNORMAL) BLOOD GASES CORD ART (ISTAT) (03/30/2015 9:38 PM PET CARE WORKER) pH Cord Arterial POCT 7.09(L) 7.20 - 7.34 pH 03/30/2015 10:27 PM [facility] pCO2 Cord Arterial POCT 75.9(HH) 45 - 55 mmHg 03/30/2015 10:27 PM [facility] pO2 Cord Arterial POCT 7(L) 12 - 25 mmHg 03/30/2015 10:27 PM [facility] HCO3 Cord Arterial POCT 22.9 15 - 29 mmol/L 03/30/2015 10:27 PM [facility] BE Cord Arterial POCT -9(L) -2.9 - 8.3 mmol/L 03/30/2015 10:27 PM [facility] TCO2 Cord Arterial POCT 25 mmol/L 03/30/2015 10:27 PM [facility] O2 Saturation Cord Art % Calc POCT 4 % 03/30/2015 10:27 PM [facility] Site CORD ART 03/30/2015 10:27 PM [facility] Sample iSTAT CORD A 03/30/2015 10:27 PM [facility] Blood CORD BLOOD SPECIMEN / Unknown 03/30/2015 9:38 PM PET CARE WORKER 03/30/2015 10:27 PM PET CARE WORKER Jose Antonio Perez MD LAB - POINT OF CARE ORDERABLES [facility] [address] [place] [address] * (ABNORMAL) CBC W AUTO DIFFERENTIAL (03/30/2015 8:01 PM PET CARE WORKER) WBC 12.4(H) 4.4 - 10.7 x10^9/L 03/30/2015 8:10 PM [facility] WBC Corrected x10^9/L 03/30/2015 8:10 PM [facility] RBC 3.99 3.80 - 5.20 x10^12/L 03/30/2015 8:10 PM [facility] Hemoglobin 10.6(L) 12.0 - 15.6 gm/dL 03/30/2015 8:10 PM [facility] Hematocrit 32.1(L) 35.9 - 45.5 % 03/30/2015 8:10 PM [facility] MCV 80.5(L) 80.7 - 98.3 fl 03/30/2015 8:10 PM [facility] MCH 26.6(L) 26.7 - 34.0 pg 03/30/2015 8:10 PM [facility] MCHC 33.0 30.8 - 35.9 gm/dL 03/30/2015 8:10 PM [facility] Platelet Count 173 153 - 416 x10^9/L 03/30/2015 8:10 PM [facility] RDW-CV 18.0(H) 12.1 - 14.9 % 03/30/2015 8:10 PM [facility] MPV 11.3 9.4 - 12.9 fl 03/30/2015 8:10 PM [facility] Neutrophils % 78.7(H) 44.0 - 73.0 % 03/30/2015 8:10 PM [facility] Lymphocytes % 13.9(L) 20.0 - 43.0 % 03/30/2015 8:10 PM [facility] Monocytes % 6.9 5.0 - 13.0 % 03/30/2015 8:10 PM [facility] Eosinophils % 0.1 0.0 - 6.0 % 03/30/2015 8:10 PM [facility] Basophils % 0.1 0.0 - 2.0 % 03/30/2015 8:10 PM [facility] Immature Granulocytes 0.3 0 - 1 % 03/30/2015 8:10 PM [facility] Neutrophil Absolute 9.74(H) 2.01 - 7.14 x10^9/L 03/30/2015 8:10 PM [facility] Lymphocytes Absolute 1.72 1.07 - 3.94 x10^9/L 03/30/2015 8:10 PM [facility] Monocytes Absolute 0.86 0.26 - 1.07 x10^9/L 03/30/2015 8:10 PM [facility] Eosinophils Absolute 0.01 0 - 0.47 x10^9/L 03/30/2015 8:10 PM [facility] Basophils Absolute 0.01 0 - 0.08 x10^9/L 03/30/2015 8:10 PM [facility] Immature Granulocytes Absolute 0.04 0.00 - 0.06 x10^9/L 03/30/2015 8:10 PM [facility] Blood BLOOD SPECIMEN / Unknown Venipuncture / Unknown 03/30/2015 8:01 PM PET CARE WORKER 03/30/2015 8:05 PM PET CARE WORKER Jose Antonio Perez MD LAB - HEMATOLOGY ORD ERABLES [facility] Organization Address City/State/[facility] Co de Phone Number [facility] [address] [place] [address] documented in this encounter Visit Diagnoses Not on filedocumented in this encounter Active and Recently Administered Medications Times are shown in PET CARE WORKER. Scheduled Medication Order 04/01/2015 04/02/2015 04/03/2015 docusate sodium (COLACE) capsule 100 mg 100 mg, Oral, 2 TIMES DAILY, First dose on Aurea 03/31/15 at 0200, Until Discontinued, 0900 ($ Given - Provider: Vivian Lynch RN)2015 ($ Given - Provider: Brooke Brown RN) 0756 ($ Given - Provider: Nitza [...] not rub injection site. Could cause hematoma., 09 (Not Administered - Provider: Vivian Lynch RN - Reason: See Comments - Comment: Will clarify with MD)1141 ($ Given - Provider: Vivian Lynch RN) 0954 ($ Given - Provider: Nitza Bliss RN) 1035 ($ Given - Provider: Nitza Bliss RN) ibuprofen (MOTRIN) tablet 600 mg 600 mg, Oral, EVERY 6 HOURS, First dose on Aurea 03/31/15 at 0200, Until Discontinued, Maximum allowable amount = 3200 mg / 24 hours., 0203 ($ Given - Provider: Jennfier Meza RN)0906 ($ Given - Provider: Vivian Lynch RN)1559 ($ Given - Provider: Vivian Lynch RN)2240 ($ Given - Provider: Brooke Brown, RIYA) 0538 ($ Given - Provider: Brooke Brown, RIYA)1245 ($ Given - Provider: Nitza Bliss RN)1824 ($ Given - Provider: Nitza Bliss RN)2000 (Not Administered - Provider: Yady Jones RN - Reason: Per Administration Instructions)2357 ($ Given - Provider: Yady Jones, RIYA) 0624 ($ Given - Provider: Yady Jones, RIYA)1210 ($ Given - Provider: Nitza Bliss RN) iron polysaccharides (NIFEREX 150) capsule 150 mg (CANCELED) 150 mg, Oral, DAILY, First dose on Aurea 03/31/15 at 0900, Until Discontinued, 0907 ($ Given - Provider: Vivian Lynch RN) iron polysaccharides (NIFEREX 150) capsule 150 mg (CANCELED) 150 mg, Oral, 2 TIMES DAILY WITH MEALS, First dose (after last modification) on Sat04/01/15 at 1800, Until Discontinued, 1902 ($ Given - Provider: Vivian Lynch RN) 0756 ($ Given - Provider: Nitza Bliss, RIYA)1824 ($ Given - Provider: Nitza Bliss, RN) 1035 ($ Given - Provider: Nitza Bliss, RN) vitamin with iron tablet 1 Tab (CANCELED) 1 tablet, Oral, DAILY, First dose on Sat03/31/15 at 0900, Until Discontinued, 0906 ($ Given - Provider: Vivian Lynch RN) 0756 ($ Given - Provider: Nitza Bliss, RIYA) 1035 ($ Given - Provider: Nitza Bliss, RIYA) PRN Medication Order 04/01/2015 04/02/2015 04/03/2015 lanolin (LANOLIN) ointment Topical, PRN, Sore or cracked nipples., Starting on Sat03/31/15 at 0148, Until 04/03/15 at 1718, Apply [...] hours., 0007 ($ Given - Provider: Jennifer Meza, RIYA)0516 ($ Given - Provider: Jennifer Meza RN)1036 ($ Given - Provider: Vivian Lynch, RIYA)1638 ($ Given - Provider: Vivian Lynch, RIYA) 0234 ($ Given - Provider: Brooke Brown RN)0756 ($ Given - Provider: Nitza Bliss, RIYA)1659 ($ Given - Provider: Nitza Bliss, RN)2358 ($ Given - Provider: Yady Jones, RIYA) 0633 ($ Given - Provider: Yady Jones, RN) simethicone (MYLICON) chew tablet 160 mg (CANCELED) 160 mg, Oral, QID PRN (after meals and at bedtime), Gas Pain, Starting on Aurea 03/31/15 at 0148, Until 04/03/15 at 1718, 0007 ($ Given - Provider: Jennifer Meza RN)1603 ($ Given - Provider: Vivian Lynch RN) documented in this encounter Care Teams Pump Servicer Helper Relationship Specialty Start Date End Date Steve Davis MD [address] [place] [address] PCP - General Family Medicine 03/30/15 documented as of this encounter
--- OUTSIDE RECORDS SUMMARY | 2024-04-29 22:43 | XMS_ITS | Encounter Summary ---
Author Organization [facility] Address [address] [place], [place] [address] [address] Care Team Providers Care Orthopaedic General Name Role Phone Steve Davis MD Primary Care Provider [phone] Reason for Visit * Auth/Cert - Closed Specialty Diagnoses / Procedures Referred By Renee t Referred To Contact Referral ID Status Reason Start Date Expiration Date Visits Re quested Visits Authorized [id number] Closed 1 1 Encounter Details Date Type Department Care Team (Latest Contact Info) Description 03/25/2015 2:26 PM CONSULTING SME - 03/25/2015 3:11 PM CONSULTING SME Hospital Encounter [facility] [address] [place] [address] Marciano Tamez MD [address] [address] Obstetrics Discharge Disposition: Home or Self Care [...] Sign Reading Time Taken Comments Blood Pressure 134/64 03/25/2015 3:10 PM CONSULTING SME Pulse - - Temperature - - Respiratory Rate - - Oxygen Saturation - - Inhaled Oxygen Concentration - - Weight - [...] No 03/08/2015 documented as of this encounter Medications at Time of Discharge [...] tongue 04/03/2015 documented as of this encounter Plan of Treatment Not on file documented as of this encounter Visit Diagnoses Not on filedocumented in this encounter Care Teams Orthopaedic General Relationship Specialty Start Date End Date Steve Davis MD [address] [place] [id number] PCP - General Family Medicine 11/14/14 03/29/15 documented as of this encounter
--- OUTSIDE RECORDS SUMMARY | 2024-04-29 22:43 | XMS_ITS | Encounter Summary ---
Author Organization [facility] Address [address] [place], [place] [address] [address] Care Team Providers Care Day Care Home Provider Name Role Phone Steve Davis MD Primary Care Provider [phone] Reason for Visit * Auth/Cert - Closed Specialty Diagnoses / Procedures Referred By Contcarlos a t Referred To Contact Referral ID Status Reason Start Date Expiration Date Visits Re quested Visits Authorized [id number] Closed 1 1 Encounter Details Date Type Department Care Team (Late st Contact Info) Description 03/30/2015 5:25 AM VICE PRESIDENT NETWORK DEVELOPMENT Anesthesia Event [facility] [address] [place] [address] Zachariah Nava MD [address] [place] [phone] Christine Park, TIRE REPAIRMAN-COMMERCIAL MAINTENANCE TECHNICIAN [address] [place], [place] [phone] Anesthesia Record Procedure Summary Procedure Name Responsible Anesthesiologist Anesthesia Start Time Anesthesia Stop Time EPIDURAL BLOCK Zachariah aNva MD 03/30/15 0525 120 06/13 1700 Events Date Time Event Comment 03/30/2015 0522 0525 An Start 0525 PT Reassessment Patient and Vital Signs reassessed prior to induction. 0529 Test Dose 0530 Bolus Dose 0538 Elect Sign The providers l isted as staff are the responsible providers for the case. 1421 Face Time 1700 An Stop Meds Name Total fentanyl 2 mcg/ml and ropivicaine 0.2% i n 0.9% nacl 0 mL * Agents No agents on file. * Blood No blood administrations on file. Lines, Drains, and Airways Type Details Placement Removal Peripheral IV Date: 03/30/15; Time : 413; Orientation: Left; Placed By: Judson Ruffin RN 03/30/15413 by Nereyda Ruffin RN 03/30/15 1750 by Yady Parikh APRN-GENERATOR ASSEMBLER Epidural Date: 03/30/15; Time : 05; Placed By: [email or web address] 03/30/15 0525 by Christine Park APRN-COMMERCIAL MAINTENANCE TECHNICIAN 03/30/15 1700 by Amanda Morgan, RN Urethral Catheter 03/30/15; 0730; jasmin morgan rn ; 16; Well; 03/30/15; 1700; Jasmin morgan rn 03/30/15 0730 by Amanda Morgan RN 03/30/15 1700 by Amanda Morgan, RN documented in this encounter Social History Tobacco [...] of this encounter Progress Notes * Gladis Sharif, SUSANA-COMMERCIAL MAINTENANCE TECHNICIAN - 03/31/2015 7:49 AM CST ANESTHESIA POSTPROCEDURE EVALUATION Oanh Ortiz is a 29 y.o. female Temp: 36.7 ??C Pulse: 94 Resp: 14 BP: 134/73 mmHg SpO2: 96 % Pain Rating Score #1: 5 Anesthesia Type: epidural Mental status: sufficiently recovered from acute administration of anesthesia to participate in theevaluation. Level of consciousness: awake No numbness, tingling or visual disturbances present. General appearance: well-appearing Respiratory function: natural airway. Cardiac: stable Pain: comfortable/acceptable Postop hydration: adequate. Patient may be released from anesthesia care. Perioperative Complications: No value filed. ASA/AQI Tracking Events: No value filed. PRESIDENT NETWORK DEVELOPMENT documented in this encounter Procedure Notes * Christine Park APRN-CRNA - 03/30/2015 5:39 AM CSTAssociated Order(s): NEURAXIAL BLOCK NEURAXIAL BLOCK Patient [...] Loss of ResistanceTechnique: air Loss of Resistance: 7 cm Catheter Threaded to: 5 cm Catheter Length at Skin: 12 cm CSF Aspirated from Catheter: negative Blood Aspirated from Catheter: negative Test Dose: lidocaine 1.5% with 1 200 k epinephrine at 03/30/2015 5:29 AM Test Dose Response: negative Local Anesthetic: ropivacaine 0.2% Events CSF return negative injection not painful no paresthesia Degree of Difficulty: none Position Post Procedure: left uterine displacement Vital signs monitored and stable throughout. See Anesthesia Intraop record for details. Block Start Time: 03/30/2015 5:25 AM Block End Time: 03/30/2015 5:29 AM Block Performed by: scott PRESIDENT NETWORK DEVELOPMENT documented in this encounter Consult Notes * Christine Park APRN-CRNA - 03/30/2015 5:21 AM CST Pre-anesthesia Evaluation Procedure(s): EPIDURAL BLOCK Vital Signs: Temp: 36.9 ??C (03/30 0439) Resp: 18 (03/30 024) BP: 139/76 mmHg (03/30 0510) BMI: Estimated body mass index is 40.21 kg/(m^2) as calculated from the following: Height as of this encounter: 5' 6 (1.676 m). Weight as of this encounter: 249 lb (112.946 kg). History: Past Medical [...] to admission Medication Sig Dispense Refill ??? acetaminophen (TYLENOL) 500 MG tablet Take 500 mg by mouth every 4 hours as needed for Fever orPain Maximum allowable Acetaminophen amount = 4 Grams (4000 mg) / 24 hours. ??? Doxylamine-Pyridoxine (DICLEGIS PO) ??? metoclopramide (REGLAN) 10 MG tablet Take 10 mg by mouth 3 times daily before meals ??? sebqyjspna-kcrachiiyyvdr-crfxlzmq (FIORICET) 50-325-40 MG tablet Take 1 Tab [...] Take 1 Tab by mouth once daily Inpatient Medications: Current Facility-Administered Medications Medication Dose Route Frequency Provider Last Rate Last Dose ??? lactated ringers infusion Intravenous Continuous Анна Anand MD 125 mL/hr at 03/30/15 0445 1,000 mL at 03/30/15 0445 ??? terbutaline (BRETHINE) injection 0.25 mg 0.25 mg Intravenous PRN Анна Anand MD ??? oxytocin (PITOCIN) 30 units in 500 ml normal saline IV solution 125-1,000 rocio-units/min Intravenous CONTINUOUS PRN Анна Anand MD ??? lidocaine (XYLOCAINE MPF) 1 % injection Infiltration PRN Анна Anand MD ??? ondansetron (ZOFRAN) injection 4 mg 4 mg Intravenous q6h PRN Анна Anand MD Or ??? metoclopramide (REGLAN) injection 10 mg 10 mg Intravenous q6h PRN Анна Anand MD Or ??? prochlorperazine (COMPAZINE) suppository 25 mg 25 mg Rectal q12h PRN Анна Anand MD ??? 0.9% NaCl injection 10 mL 10 mL Intracatheter q8h Анна Anand MD 10 mL at 03/30/15 0600 And ??? 0.9% NaCl injection 10 mL 10 mL Intracatheter PRN Анна Anand MD Recent Labs Component Name 03/30/15 0422 03/29/15 0924 03/08/15 1617 WBC 10.4 8.2 9.7 HGB 10.7* 10.0* 9.1* HCT 33.1* 30.3* 28.3* PLTCOUNT 164 153 183 Physical Exam: NPO status: continuous clear liquids Oriented to person, place and time Airway: II Neck ROM: full Dental exam findings: normal/ok Pulmonary exam: breath sounds CTA Heart sounds: S1 S2 Reviewed labs Plan for Anesthesia: ASA Score: 2. Anesthesia plan: epidural Planned postop destination: OB Anesthesia plan, risks and benefits discussed with patient Anesthesia consent: obtained Plan accepted yes Discussed anesthesia plan with: anesthesiologist. PRESIDENT NETWORK DEVELOPMENT documented in this encounter Plan of Treatment Not on file documented as of this encounter Procedures Procedure Name Priority Date/Time Associated Diagnosis Comments NEURAXIAL BLOCK Routine 03/30/2015 5:39 AM VICE PRESIDENT NETWORK DEVELOPMENT documented in this encounter Results * NEURAXIAL BLOCK (03/30/2015 5:39 AM VICE PRESIDENT NETWORK DEVELOPMENT) Narrative Christine Park, ZARINA - 03/30/2015 5:39 AM VICE PRESIDENT NETWORK DEVELOPMENT Christine Park APRN-CRNA ? 03/30/2015 ??5:39 AM NEURAXIAL BLOCK Patient [...] MAR Action Action Date Dose Rate Site fentanyl 2 mcg/ml and ropivicaine 0.2% in 0.9% nacl Epidural CONTINUOUS PRN, Starting on Sat03/30/15 at 0531, Until Sat03/30/15 at 2032, Anesthesia Intra-op Rate Change 03/30/2015 2:21 PM VICE PRESIDENT NETWORK DEVELOPMENT 7 mL/hr $ New Bag/Syringe 03/30/2015 5:31 AM VICE PRESIDENT NETWORK DEVELOPMENT 12 mL/ hr documented in this encounter Care Teams Day Care Home Provider Relationship Specialty Start Date End Date Steve Davis MD [address] [place] [address] PCP - General Family Medicine 03/30/15 documented as of this encounter
--- OUTSIDE RECORDS SUMMARY | 2024-04-29 22:43 | XMS_ITS | Encounter Summary ---
Author Organization [facility] Address [address] [place] [address] Care Team Providers Care Horse Racer Name Role Phone Steve Davis MD Primary Care Provider [phone] Reason for Visit * Reason Comments Hypertension Encounter Details Date Type Department Care Team (Latest Contact Info) Description 03/29/2015 8:18 AM TRANSIT PROOF MACHINE OPERATOR - 03/29/2015 1:40 PM TRANSIT PROOF MACHINE OPERATOR Hospital Encounter [facility] [address] [place] [address] Jose Antonio Perez MD [address] [place] [address] Discharge Disposition: Home or Self Care Social [...] Sign Reading Time Taken Comments Blood Pressure 120/71 03/29/2015 1:32 PM TRANSIT PROOF MACHINE OPERATOR Pulse - - Temperature 36.7 ??C (98 ??F) 03/29/2015 9:35 AM TRANSIT PROOF MACHINE OPERATOR Respiratory Rate 18 03/29/2015 1:32 PM TRANSIT PROOF MACHINE OPERATOR Oxygen Saturation - - Inhaled Oxygen Concentration - - Weight 109.8 kg (242 lb) 03/29/2015 8:47 AM TRANSIT PROOF MACHINE OPERATOR Height 167.6 cm (5' 6 ) 03/29/2015 8:47 AM TRANSIT PROOF MACHINE OPERATOR Body Mass Index 39.06 03/29/2015 8:47 AM TRANSIT PROOF MACHINE OPERATOR documented in this encounter Functional Status Functional Status Response Date of Assess ment Is person deaf or have serious hearing difficult y? No 03/29/2015 Is person blind or have serious difficulty seein g? No 03/29/2015 Does person have serious dif ficulty walking/climbing stairs? No 03/29/2015 Does person have difficulty dressing/bathing? No 03/29/2015 Does person have difficulty doing errands alone? No 03/29/2015 Cognitive Status Response Date of Assessm ent Does person have difficulty concentrating/remembering/making decisions? No 03/29/2015 documented as of this encounter Discharge Instructions * Discharge Instructions* Randee Connell RN - 03/29/2015 1:39 PM TRANSIT PROOF MACHINE OPERATOR UNDELIVERED PATIENT DISCHARGE INSTRUCTIONS CALL YOUR DOCTOR [...] pains, cramps, nausea,or diarrhea. Important Telephone Number: [phone] SIT PROOF MACHINE OPERATOR documented in this encounter Medications at Time [...] Headache or Migraine 20 Tab 0 03/29/2015 ferrous sulfate 325 (65 FE) MG tablet [...] H&P Notes * Darío Tabor MD - 03/29/2015 9:37 AM CST PGY-1 Obstetric H&P CC: Headache, nausea, seeing spots, elevated BP HPI: 29 y.o. at 35w0d gestation. Datinwk Ultrasound, confirmed Estimated Date of Delivery: 05/03/15 care: is with Dr. Tamez ([facility]). Patient's is complicated by: Patient Active Problem List Diagnosis Date Noted ??? Hyperemesis gravidarum with electrolyte imbalance Priority: [...] Salpingectomy in 2009 Currently, patient presents with headache for the past 4 days. Patient reports headache is temporaland occipital in location. Headache has been constant and improves very temporarily with Tylenol (returns in 30 minutes). Patient reports she has been taking 1000mg Tylenol q4h. Was counseled on safeTylenol use in (1000mg q6h, no more than 4000mg in 24 hrs). Patient says she took her BP at home and it was in the 150s. Patient also reports seeing spots on and off, though none currently.Denies RUQ pain and SOB. Reports nausea since last night at 11pm, but no vomiting. Headache currently is rated at 5/10. negative Ctx. negative LOF. negative VB. Movement positive x2. Patient was given IV Reglan/Benadryl in triage and headache resolved. Patient then noted some irregular cramping while in triage. This cramping had resolved prior to discharge. Review of Symptoms: No RUQ pain No SOB/ CP/ CT No vomiting/ fevers/ chills/ diarrhea No dysuria/ hematuria/ urinary [...] History: Abnormal pap smears: Yes Cervical procedures: LEEP STDs: No. Denies history of gonorrhea, chlamydia, trichomonas, herpes, HIV, syphilis Medical History: Past Medical History Diagnosis Date ??? History of anemia ??? 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 Nausea/vomiting in ??? Abnormal Pap smear of cervix LEEP 2004 ??? Multiple gestation She denies history of hypertension, diabetes, asthma or bleeding disorders. Psych History: Bipolar disorder, on no medications Surgeries: Past Surgical History Procedure Laterality Date [...] tablet to dissolve on the tongue Yes ProviderAnabel MD Doxylamine-Pyridoxine (DICLEGIS PO) Yes ProviderAnabel MD ferrous sulfate 325 (65 FE) MG tablet Take 1 Tab by mouth 2 times daily with morning and evening meal 03/09/15 Clara Saucedo MD Vit-Fe Fumarate-FA ( VITAMIN) 28-0.8 MG tablet Take 1 Tab by mouth once daily Anabel Heath MD metoclopramide (REGLAN) 10 MG tablet Take 10 mg by mouth 3 times daily before meals ProviderAnabel MD Allergies: No Known Allergies Social History: [...] breast, ovarian, or uterine cancer Objective: Vitals: 03/29/15 0837 03/29/15 0847 03/29/15 0902 BP: 134/77 136/84 Resp: 20 Weight: 242 lb (109.77 kg) non-stress test (A): baseline rate 125, moderate variability, reactive, no decels non-stress test (B): baseline rate 115-135, moderate variability, reactive, one decel with dahlia to 90 and return to baseline in 4 min followed by >3hrs of monitoring with no decels and reactive tracing Mcclave: irritability, irregular ctx Physical Exam: General: alert, cooperative, no distress Lungs: clear to auscultation bilaterally Heart: regular rate and rhythm Abdomen: gravid, non-tender Extremities: non-tender bilaterally, edema 1+ bilaterally Neuro: cranial nerves intact, pupils equal, round, reactive to light Cervical Exam Dilation (cm): 4.5 Effacement: 50 Station: -3 Bedside ultrasound: Presentation A: breech (presenting) Deepest vertical pocket A: 3.47cm Presentation B: vertex Deepest vertical pocket B: 4.25cm Current Lab Review: Hospital Encounter on 03/29/15 URINALYSIS ROUTINE W/REFLEX TO CULTURE Result Value Ref Range Color UA Yellow Straw, Yellow, Dark Yellow Clarity UA Clear Specific [place]ram UA 1.015 1.005-1.030 pH UA 7.0 5.0-8.0 pH Protein UA Negative Negative Blood UA Negative Negative Leukocyte UA 2+ (Abnormal) Negative Nitrite UA Negative Negative Glucose UA Negative Negative Ketone UA Negative Negative Bili UA Negative Negative Urobilinogen UA 0.2 0.1-1.0 EU/dL WBC UA Auto 10-20 (Abnormal) 0-2, 2-5 # /hpf RBC UA Auto 2-5 0-2, 2-5 # /hpf Epithelial Cell UA Auto 2-5 0-2, 2-5 # /hpf Bacteria UA Auto 2+ (Abnormal) None seen Hyaline Casts UA Auto 2-5 (Abnormal) 0-2 #/lpf Reflex Status Culture to follow PROTEIN CREATININE RATIO URINE RANDOM PNL Result Value Ref Range Protein Urine mg/dL 26.8 mg/dL Creat Urine mg/dL 92 mg/dL Protein/Creat Ratio Urine 0.29 CBC W AUTO DIFFERENTIAL Result Value Ref Range WBC 8.2 4.4-10.7 x10^9/L WBC Corrected x10^9/L RBC 3.73 (L) 3.80-5.20 x10^12/L Hgb 10.0 (L) 12.0-15.6 gm/dL HCT 30.3 (L) 35.9-45.5 % MCV 81.2 80.7-98.3 fl MCH 26.8 26.7-34.0 pg MCHC 33.0 30.8-35.9 gm/dL Plt Ct 153 153-416 x10^9/L RDW-CV 18.1 (H) 12.1-14.9 % MPV 11.4 9.4-12.9 fl Neutro 66.5 44.0-73.0 % Lymph 23.4 20.0-43.0 % [place]i 8.5 5.0-13.0 % Eos 0.9 0.0-6.0 % Baso 0.2 0.0-2.0 % Immature Grans 0.5 0-1 % Neutro Abs 5.43 2.01-7.14 x10^9/L Lymph Abs 1.91 1.07-3.94 x10^9/L [place] Abs 0.69 0.26-1.07 x10^9/L Eosin Abs 0.07 0-0.47 x10^9/L Baso Abs 0.02 0-0.08 x10^9/L Immature Grans (Abs) 0.04 0.00-0.06 x10^9/L COMPREHENSIVE METABOLIC PANEL Result Value Ref Range Glucose 87 74-106 mg/dL Sodium 140 136-145 mmol/L Potassium 3.2 (L) 3.5-5.1 mmol/L Chloride 109 (H) 98-107 mmol/L CO2 20 (L) 22-31 mmol/L Calcium 8.1 (L) 8.5-10.1 mg/dL Anion Gap 11 5-20 mmol/L BUN 2 (L) 7-21 mg/dL Creatinine 0.43 (L) 0.50-1.30 mg/dL Alk Phos 132 (H) 38-126 U/L ALT/SGPT 14 12-78 U/L AST/SGOT 13 5-40 U/L Protein Total 5.6 (L) 6.4-8.2 gm/dL Albumin 2.2 (L) 3.4-5.0 gm/dL Bili Total 0.3 0.2-1.0 mg/dL eGFR MDRD >60 >60 mL/min/1.73m2 eGFR MDRD AFR AMR >60 >60 mL/min/1.73m2 URIC ACID BLOOD Result Value Ref Range Uric Acid 3.6 3.0-8.5 mg/dL LDH BLOOD Result Value Ref Range LDH 192 100-200 U/L Assessment/Plan: 29 y.o. @ 35w0d 1. R/o severe pre-eclampsia 1. Patient had 24hr urine on 03/09 during recent admission: 374mg 2. Plt, LFT's, uric acid, LDH wnl today 3. BP's 100s-130s/60s-80s in triage 4. Headache resolved with IV Reglan/Benadryl x1 in triage. Given prescription for Fioricet at discharge. 5. Normal DVP's for both twins 2. R/o Labor 1. Cervix 4.5/50/-3 and unchanged on recheck after one hour. 3. Di/Di Twin gestation 1. EFW: Twin A 2573g (65%ile), Twin B 2144g (32%ile) on 03/22/15 2. Breech/vertex presentation today 3. Patient scheduled for IOL at 37 weeks. Discussed possibility of delivery if presenting twin is breech. 4. FWB reassuring x2 5. F/u: at next appt with Dr. Tamez on Thursday 04/05 6. Dispo: discharged to home with strict PTL and PreE precautions Discussed with Dr. Carpenter and Dr. Ramos. Darío Tabor MD 03/29/2015 9:37 AM SIT PROOF MACHINE OPERATOR documented in this encounter Procedure Notes * Jose Antonio Perez MD - 03/29/2015 4:48 PM CST Nonstress test: non-stress test (A): baseline rate 125, moderate variability, reactive, no decels non-stress test (B): baseline rate 115-135, moderate variability, reactive, one decel with dahlia to 90 and return to baseline in 4 min followed by >3hrs of monitoring with no decels and reactive tracing Mcclave: irritability, irregular ctx Impression: Reassuring testing for both babies Recommend: follow up studies as clinically indicated. Jose Antonio Perez MD SIT PROOF MACHINE OPERATOR documented in this encounter Plan of Treatment Scheduled Orders Name Type Priority Associated Diagnoses Orde r Schedule URINALYSIS OBSTETRICS - POINT OF CARE Point of Care Testing STAT Secondary hypertension, unspecified ONCE for 1 Occurrences starting 03/29/2015 until 03/29/2015 documented as of this encounter Procedures Procedure Name Priority Date/Time Associated Diagnosis Comments IMAGING/RADIOLOGY/XRAY RESULTS ORDER 04/12/2015 4:14 PM TRANSIT PROOF MACHINE OPERATOR PROTEIN CREATININE RATIO URINE RANDOM PNL STAT 03/29/2015 9:52 AM TRANSIT PROOF MACHINE OPERATOR Secondary hypertension, unspecified URIC ACID BLOOD STAT 03/29/2015 9:24 AM TRANSIT PROOF MACHINE OPERATOR Secondary hypertension, unspecified CBC W AUTO DIFFERENTIAL STAT 03/29/2015 9:24 AM TRANSIT PROOF MACHINE OPERATOR Secondary hypertension, unspecified COMPREHENSIVE METABOLIC PANEL STAT 03/29/2015 9:24 AM TRANSIT PROOF MACHINE OPERATOR Secondary hypertension, unspecified LDH BLOOD STAT 03/29/2015 9:24 AM TRANSIT PROOF MACHINE OPERATOR Secondary hypertension, unspecified URINALYSIS REFLEX MICROSCOPIC REFLEX CULTURE STAT 03/29/2015 9:10 AM TRANSIT PROOF MACHINE OPERATOR Secondary hypertension, unspecified CULTURE URINE Routine 03/29/2015 9:10 AM TRANSIT PROOF MACHINE OPERATOR Secondary hypertension, unspecified documented in this encounter Results * IMAGING/RADIOLOGY/XRAY RESULTS ORDER (04/12/2015 4:14 PM TRANSIT PROOF MACHINE OPERATOR) Anatomical Region Laterality Modality Other Narrative 04/12/2015 4:14 PM TRANSIT PROOF MACHINE OPERATOR Ordered by an unspecified provider. Scanned Document IMAGING * PROTEIN CREATININE RATIO URINE RANDOM PNL (03/29/2015 9:52 AM TRANSIT PROOF MACHINE OPERATOR) Protein Urine 26.8 mg/dL 03/29/2015 9:52 AM TRANSIT PROOF MACHINE OPERATOR [facility] Creatinine Urine 92 mg/dL 03/29/2015 9:52 AM TRANSIT PROOF MACHINE OPERATOR [facility] Protein/Creatin ine Ratio Urine 0.29 03/29/2015 9:52 AM TRANSIT PROOF MACHINE OPERATOR [facility] Urine URINE SPECIMEN OBTAINED BY CLEAN CATCH PROCEDURE / Unknown Collection / Unknown 03/29/2015 9:52 AM TRANSIT PROOF MACHINE OPERATOR 03/29/2015 9:23 AM TRANSIT PROOF MACHINE OPERATOR Lorena Redd FAN BALANCER-JOURNEYMAN OPERATOR ASSISTANT LAB - URINE C HEMISTRY ORDERABLES Performing Organization Address [facility] de Phone Number [facility] [address] [place] [address] * LDH BLOOD (03/29/2015 9:24 AM TRANSIT PROOF MACHINE OPERATOR) LDH 192 100 - 200 U/L 03/29/2015 9:53 AM TRANSIT PROOF MACHINE OPERATOR [facility] Blood BLOOD SPECIMEN / Unknown Venipuncture / Unknown 03/29/2015 9:24 AM TRANSIT PROOF MACHINE OPERATOR 03/29/2015 9:23 AM TRANSIT PROOF MACHINE OPERATOR Lorena Redd FAN BALANCER-JOURNEYMAN OPERATOR ASSISTANT LAB - CUSTOMER BUSINESS MANAGER RY ORDERABLES Performing Organization Address [facility]/ZIP Co de Phone Number [facility] [address] [place] [address] * URIC ACID BLOOD (03/29/2015 9:24 AM TRANSIT PROOF MACHINE OPERATOR) Pathologist [facility] Uric Acid 3.6 3.0 - 8.5 mg/dL 03/29/2015 9:53 AM [facility] Blood BLOOD SPECIMEN / Unknown Venipuncture / Unknown 03/29/2015 9:24 AM TRANSIT PROOF MACHINE OPERATOR 03/29/2015 9:23 AM TRANSIT PROOF MACHINE OPERATOR Lorena Redd FAN BALANCER-JOURNEYMAN OPERATOR ASSISTANT LAB - CUSTOMER BUSINESS MANAGER RY ORDERABLES Performing Organization Address [facility] Co de Phone Number [facility] [address] [place] [address] * (ABNORMAL) COMPREHENSIVE METABOLIC PANEL (03/29/2015 9:24 AM TRANSIT PROOF MACHINE OPERATOR) Pathologist [facility] Glucose 87 74 - 106 mg/dL 03/29/2015 9:53 AM [facility] Sodium 140 136 - 145 mmol/L 03/29/2015 9:53 AM [facility] Potassium 3.2(L) 3.5 - 5.1 mmol/L 03/29/2015 9:53 AM [facility] Chloride 109(H) 98 - 107 mmol/L 03/29/2015 9:53 AM [facility] CO2 20(L) 22 - 31 mmol/L 03/29/2015 9:53 AM [facility] Calcium 8.1(L) 8.5 - 10.1 mg/dL 03/29/2015 9:53 AM [facility] Anion Gap 11 5 - 20 mmol/L 03/29/2015 9:53 AM [facility] BUN 2(L) 7 - 21 mg/dL 03/29/2015 9:53 AM [facility] Creatinine 0.43(L) 0.50 - 1.30 mg/dL 03/29/2015 9:53 AM [facility] Alkaline Phosphatase 132(H) 38 - 126 U/L 03/29/2015 9:53 AM [facility] ALT 14 12 - 78 U/L 03/29/2015 9:53 AM [facility] AST 13 5 - 40 U/L 03/29/2015 9:53 AM [facility] Protein Total 5.6(L) 6.4 - 8.2 gm/dL 03/29/2015 9:53 AM [facility] Albumin 2.2(L) 3.4 - 5.0 gm/dL 03/29/2015 9:53 AM [facility] Bilirubin Total 0.3 0.2 - 1.0 mg/dL 03/29/2015 9:53 AM [facility] eGFR by MDRD >60 >60 mL/min/1.7 3m2 03/29/2015 9:53 AM [facility] eGFR by MDRD >60 >60 mL/min/1.7 3m2 03/29/2015 9:53 AM [facility] Blood BLOOD SPECIMEN / Unknown Venipuncture / Unknown 03/29/2015 9:24 AM TRANSIT PROOF MACHINE OPERATOR 03/29/2015 9:23 AM [facility] Lorena Redd FAN BALANCER-JOURNEYMAN OPERATOR ASSISTANT LAB - CUSTOMER BUSINESS MANAGER RY ORDERABLES Performing Organization Address City/State/[facility] Co de Phone Number [facility] [address] [place] [address] * (ABNORMAL) CBC W AUTO DIFFERENTIAL (03/29/2015 9:24 AM [facility]) WBC 8.2 4.4 - 10.7 x10^9/L 03/29/2015 9:32 AM [facility] WBC Corrected x10^9/L 03/29/2015 9:32 AM [facility] RBC 3.73(L) 3.80 - 5.20 x10^12/L 03/29/2015 9:32 AM [facility] Hemoglobin 10.0(L) 12.0 - 15.6 gm/dL 03/29/2015 9:32 AM [facility] Hematocrit 30.3(L) 35.9 - 45.5 % 03/29/2015 9:32 AM [facility] MCV 81.2 80.7 - 98.3 fl 03/29/2015 9:32 AM [facility] MCH 26.8 26.7 - 34.0 pg 03/29/2015 9:32 AM [facility] MCHC 33.0 30.8 - 35.9 gm/dL 03/29/2015 9:32 AM [facility] Platelet Count 153 153 - 416 x10^9/L 03/29/2015 9:32 AM [facility] RDW-CV 18.1(H) 12.1 - 14.9 % 03/29/2015 9:32 AM [facility] MPV 11.4 9.4 - 12.9 fl 03/29/2015 9:32 AM [facility] Neutrophils % 66.5 44.0 - 73.0 % 03/29/2015 9:32 AM [facility] Lymphocytes % 23.4 20.0 - 43.0 % 03/29/2015 9:32 AM [facility] Monocytes % 8.5 5.0 - 13.0 % 03/29/2015 9:32 AM [facility] Eosinophils % 0.9 0.0 - 6.0 % 03/29/2015 9:32 AM [facility] Basophils % 0.2 0.0 - 2.0 % 03/29/2015 9:32 AM [facility] Immature Granulocytes 0.5 0 - 1 % 03/29/2015 9:32 AM [facility] Neutrophil Absolute 5.43 2.01 - 7.14 x10^9/L 03/29/2015 9:32 AM [facility] Lymphocytes Absolute 1.91 1.07 - 3.94 x10^9/L 03/29/2015 9:32 AM [facility] Monocytes Absolute 0.69 0.26 - 1.07 x10^9/L 03/29/2015 9:32 AM [facility] Eosinophils Absolute 0.07 0 - 0.47 x10^9/L 03/29/2015 9:32 AM [facility] Basophils Absolute 0.02 0 - 0.08 x10^9/L 03/29/2015 9:32 AM [facility] Immature Granulocytes Absolute 0.04 0.00 - 0.06 x10^9/L 03/29/2015 9:32 AM [facility] Blood BLOOD SPECIMEN / Unknown Venipuncture / Unknown 03/29/2015 9:24 AM TRANSIT PROOF MACHINE OPERATOR 03/29/2015 9:23 AM [facility] Lorena Redd FAN BALANCER-JOURNEYMAN OPERATOR ASSISTANT LAB - HEMATOL OGY ORDERABLES [facility] [address] [place] [address] * CULTURE URINE (03/29/2015 9:10 AM TRANSIT PROOF MACHINE OPERATOR) Culture <10,000 CFU/mL normal urogenital augustine SATURNINO 03/31/2015 9:12 AM TRANSIT PROOF MACHINE OPERATOR [facility] MICROBIOLOGY Urine URINE SPECIMEN OBTAINED BY CLEAN CATCH PROCEDURE / Unknown Collection / Unknown 03/29/2015 9:10 AM TRANSIT PROOF MACHINE OPERATOR 03/29/2015 9:23 AM TRANSIT PROOF MACHINE OPERATOR Lorena Byrne Ivania FAN BALANCER-JOURNEYMAN OPERATOR ASSISTANT LAB - MICROBI OLOGY ORDERABLES [facility] MICRO[facility]OLOGY [address] [phone] * (ABNORMAL) URINALYSIS ROUTINE W/REFLEX TO CULTURE (03/29/2015 9:10 AM TRANSIT PROOF MACHINE OPERATOR) Color UA Yellow Straw, Yellow, Dark Yellow 03/29/2015 9:36 AM [facility] Clarity UA Clear 03/29/2015 9:36 AM [facility] Specific [place] UA 1.015 1.005 - 1.030 03/29/2015 9:36 AM [facility] pH UA 7.0 5.0 - 8.0 pH 03/29/2015 9:36 AM [facility] Protein UA Negative Negative 03/29/2015 9:36 AM TRANSIT PROOF MACHINE OPERATOR [facility] Blood UA Negative Negative 03/29/2015 9:36 AM TRANSIT PROOF MACHINE OPERATOR [facility] Leukocyte UA 2+(A) Negative 03/29/2015 9:36 AM TRANSIT PROOF MACHINE OPERATOR [facility] Nitrite UA Negative Negative 03/29/2015 9:36 AM [facility] Glucose UA Negative Negative 03/29/2015 9:36 AM TRANSIT PROOF MACHINE OPERATOR [facility] Ketone UA Negative Negative 03/29/2015 9:36 AM TRANSIT PROOF MACHINE OPERATOR [facility] Bilirubin UA Negative Negative 03/29/2015 9:36 AM [facility] Urobilinogen UA 0.2 0.1 - 1.0 EU/dL 03/29/2015 9:36 AM [facility] WBC UA Auto 10-20(A) 0-2, 2-5 # /hpf 03/29/2015 9:36 AM TRANSIT PROOF MACHINE OPERATOR [facility] RBC UA Auto 2-5 0-2, 2-5 # /hpf 03/29/2015 9:36 AM TRANSIT PROOF MACHINE OPERATOR [facility] Epithelial Cell UA Auto 2-5 0-2, 2-5 # /hpf 03/29/2015 9:36 AM TRANSIT PROOF MACHINE OPERATOR [facility] Bacteria UA Auto 2+(A) None seen 03/29/2015 9:36 AM TRANSIT PROOF MACHINE OPERATOR [facility] Hyaline Casts UA Auto 2-5(A) 0 - 2 #/lpf 03/29/2015 9:36 AM TRANSIT PROOF MACHINE OPERATOR [facility] Reflex Status Culture to follow 03/29/2015 9:36 AM TRANSIT PROOF MACHINE OPERATOR [facility] Urine URINE SPECIMEN OBTAINED BY CLEAN CATCH PROCEDURE / Unknown Collection / Unknown 03/29/2015 9:10 AM TRANSIT PROOF MACHINE OPERATOR 03/29/2015 9:23 AM TRANSIT PROOF MACHINE OPERATOR Lorena Berumenalmaz FAN BALANCER-JOURNEYMAN OPERATOR ASSISTANT LAB - URINALY SIS ORDERABLES Performing Organization Address City/State/[facility] Co de Phone Number [facility] [address] [place] [address] documented in this encounter Visit Diagnoses Diagnosis Secondary hypertension, unspecified- Primary documented in this encounter Administered Medications Inactive Administered Medications - up to 3 most recent administrations Medication Order MAR Action Action Date Dose Rate Site diphenhydrAMINE (BENADRYL) injection 25 mg 25 mg, Intravenous, ONCE, 1 dose, On Sat03/29/15 at 0930, Max intravenous rate = 25 mg/min $ Given 03/29/2015 9:37 AM TRANSIT PROOF MACHINE OPERATOR 25 mg metoclopramide (REGLAN) injection 10 mg 10 mg, Intravenous, ONCE, 1 dose, On Sat03/29/15 at 0930 $ Given 03/29/2015 9:36 AM TRANSIT PROOF MACHINE OPERATOR 10 mg documented in this encounter Active and Recently Administered Medications Times are shown in TRANSIT PROOF MACHINE OPERATOR. Scheduled Medication Order 03/27/2015 03/28/2015 03/29/2015 diphenhydrAMINE (BENADRYL) injection 25 mg (COMPLETED) 25 mg, Intravenous, ONCE, 1 dose, On Sat03/29/15 at 0930, Max intravenous rate = 25 mg/min 0937 ($ Given - Prov ider: Randee Connell RN)[id number] (Not Administered - Provider: Jenn Nguyen RN - Reason: Documented on duplicate row) metoclopramide (REGLAN) injection 10 mg (COMPLETED) 10 mg, Intravenous, ONCE, 1 dose, On Sat03/29/15 at 0930 0936 ($ Given - Prov ider: Randee Connell RN)[id number] (Not Administered - Provider: Jenn Nguyen RN - Reason: Documented on duplicate row) documented in this encounter Care Teams Horse Racer Relationship Specialty Start Date End Date Steve Davis MD [address] [place] [address] PCP - General Family Medicine 11/14/14 03/29/15 documented as of this encounter
--- OUTSIDE RECORDS SUMMARY | 2024-04-29 22:43 | XMS_ITS | Encounter Summary ---
Author Organization [facility] Address [address] [place], [place] [address] [address] Care Team Providers Care Digital Design Engineer Name Role Phone Steve Davis MD Primary Care Provider [phone] Reason for Visit * Radiology Services (Routine) - Closed Specialty Diagnoses / Procedures Referred By Contac t Referred To Contact Cardiology Procedures [id number] Marciano Tamez MD [address] [address] [facility] Cardiology [address] [place] [address] Referral ID Status Reason Start Date Expiration Date Visits Re quested Visits Authorized [id number] Closed 02/16/2015 08/15/2015 1 1 Encounter Details Date Type Department Care Team (Latest Contact Info) Description 02/16/2015 2:00 PM CDT - 02/16/2015 11:59 PM CDT Hospital Encounter [facility] Heart & Vascular Care [address] [place] [address] Marciano Tamez MD [address] [address] Discharge Disposition: Home or Self Care Social [...] on file documented as of this encounter Medications at [...] Procedure Name Priority Date/Time Associated Diagnosis Comments ECHOCARDIOGRAM 2D WITH DOPPLER Routine 02/16/2015 2:19 PM CDT Heart murmur documented in this encounter Results * ECHOCARDIOGRAM 2D WITH DOPPLER (02/16/2015 2:19 PM CDT) 02/16/2015 2:19 PM CDT Narrative [facility] CARDIOLOGY - 02/17/2015 11:15 AM CDT Transthoracic Echocardiogram 2D, M-mode, Doppler, and Color Doppler Patient: BROOKE ORTIZ MR number: [id number] Height: 66 in Weight: 225.5 lb BSA: 2.11 m?? Study date: 16-Feb-2015 : 1985 Age: 29 years Gender: Female Race: 2 Referring Physician: ??Marciano Tamez MD Cash Application Representative: ??Valerie Thurman BRITTA Reading Physician: ??Savanah Marks, DO Summary: - ??Clinical question: - ??Heart [...] 2D, M-mode, Doppler, and Color Doppler Patient: BROOKE ORTIZ MR number: [id number] Height: 66 in Weight: 225.5 lb BSA: 2.11 m?? Study date: 16-Feb-2015 : 1985 Age: 29 years Gender: Female Race: 2 Referring Physician: Marciano Tamez MD Cash Application Representative: Valerie Thurman RDCS Reading Physician: Savanah Marks [...] Tamez MD ECHO ORDERABLES Performing Organization Address City/State/[facility] Co de Phone Number [facility] [address] [place] [address] documented in this encounter Visit Diagnoses Diagnosis Heart murmur- Primary Undiagnosed cardiac murmurs documented in this encounter Care Teams Digital Design Engineer Relationship Specialty Start Date End Date Steve Davis MD [address] [place] [address] PCP - General Family Medicine 11/14/14 03/29/15 documented as of this encounter
--- OUTSIDE RECORDS SUMMARY | 2024-04-29 22:45 | XMS_ITS | Encounter Summary ---
Author Organization [facility] Address [address] [place] [address]. [place] [address] Care Team Providers Care Fireman Name Role Phone Unavailable Primary Care Provider Unavailabl e Encounter Details Date Type Department Care Team (Late st Contact Info) Description 02/07/2012 Abstract [facility] Conversion Md, Generic Conversion, Social History Tobacco Use Types Packs/Day Years Used Date Smoking Tobacco: Never Assessed Comments Unknown Sex and Gender Information Value Date Recorded Sex Assigned at Not on file Legal Sex Female 8:07 AM CDT Gender Identity Not on file Sexual Orientation Not on file documented as of this encounter Plan of Treatment Not on file documented as of this encounter Visit Diagnoses Not on filedocumented in this encounter
--- OUTSIDE RECORDS SUMMARY | 2024-04-29 22:45 | XMS_ITS | Encounter Summary ---
Author Organization [facility] Address [address] [place] [address]. [place] [address] Care Team Providers Care Md Allergy Immunology Name Role Phone Unavailable Primary Care Provider Unavailabl e Encounter Details Date Type Department Care Team (Late st Contact Info) Description 02/15/2012 Abstract [facility] Conversion Md, Generic Conversion, Social History Tobacco [...]
--- OUTSIDE RECORDS SUMMARY | 2024-04-29 22:45 | XMS_ITS | Encounter Summary ---
Author Organization [facility] Address [address] [place] [address]. [place] [address] Care Team Providers Care Nail Mill Worker Name Role Phone Unavailable Primary Care Provider Unavailabl e Encounter Details Date Type Department Care Team (Late st Contact Info) Description 02/11/2012 Abstract [facility] Conversion Md, [...]
--- OUTSIDE RECORDS SUMMARY | 2024-04-29 22:45 | XMS_ITS | Encounter Summary ---
Author Organization [facility] Address [address] [place] [address]. [place], [place] [address] [place] [address] Care Team Providers Care Research Chef Name Role Phone Unavailable Primary Care Provider Unavailabl e Encounter Details Date Type Department Care Team (Late st Contact Info) Description 02/12/2012 Abstract [facility] Diagnostic Imaging [address] [place] [address] Clara Crow, [facility] [address] [place] [address] Social History Tobacco Use Types Packs/Day Years [...]
--- OUTSIDE RECORDS SUMMARY | 2024-04-29 22:45 | XMS_ITS | Clinical Summary ---
Author Organization [facility] Address [address] [place] [address]. [place] [id number] [place] [address] Care Team Providers Care Manager Concrete Name Role Phone Unavailable Primary Care Provider Unavailabl e Social History Tobacco Use Types Packs/Day Years Used Date Smoking Tobacco: Never Assessed Comments Unknown Sex and Gender Information Value Date Recorded Sex Assigned at Not on file Legal Sex Female 8:07 AM CDT Gender Identity Not on file Sexual Orientation Not on file Last Filed Vital Signs Vital Sign Reading Time Taken Comments Blood Pressure 118/76 02/12/2012 10:36 AM CDT Pulse 78 02/12/2012 10:36 AM CDT Temperature - - Respiratory Rate - - Oxygen Saturation - - Inhaled Oxygen Concentration - - Weight 95.7 kg (211 lb) 02/12/2012 10:36 AM CDT Height 165.1 cm (5' 5 ) 02/12/2012 10:36 AM CDT Body Mass Index 35.11 02/12/2012 10:36 AM CDT Plan of Treatment Health Maintenance Due Date Last Done Comments Cervical Cancer Screening Pa p Smear (Age 30 to 64) Every 3 Years 1986 Annual Physical 1989 Hepatitis C 2004 DTaP, Tdap and Td Vaccines ( 1 - Tdap) 2005 Hepatitis B Vaccines (1 of 3 - 19+ 3-dose series) 2005 Cervical Cancer Screening Pa p with HPV Testing (Age 30 to 64) Every 5 Years 2016 Cervical Cancer Screening with HPV 2016 COVID-19 Vaccine (2023-2 5 season) 2023 Influenza Adult (#1) 2024 HPV Vaccines Aged Out No longer eligi ble based on patient's age to complete this topic Meningococcal Vaccine Aged Out No myate kamron eligible based on patient's age to complete this topic Pneumococcal Vaccine: Pediat rics (0 to 5 Years) and At-Risk Patients (6 to 64 Years) Aged Out No longer eligible b ased on patient's age to complete this topic RSV Immunizations Under 20 Months Aged Out No longer eligible based on patient's age to complete this topic
--- OUTSIDE RECORDS SUMMARY | 2024-04-29 22:45 | XMS_ITS | Encounter Summary ---
Author Organization [facility] Address [address] [place] [address]. [place] [id number] [place] [address] Care Team Providers Care Bill Board Poster Name Role Phone Unavailable Primary Care Provider Unavailabl e Encounter Details Date Type Department Care Team (Late st Contact Info) Description 02/02/2003 Abstract [facility] CONVERSION [address] [place] [address] , Generic Conversion, Social History Tobacco Use Types [...]
--- OUTSIDE RECORDS SUMMARY | 2024-04-29 22:45 | XMS_ITS | Encounter Summary ---
Author Organization [facility] Address [facility]. [place], [place] [address] [place] [address] Care Team Providers Care Repair Mechanic Name Role Phone Unavailable Primary Care Provider Unavailabl e Encounter Details Date Type Department Care Team (Late st Contact Info) Description 02/12/2012 Abstract [facility] Conversion Clara Crow, CN [address] [place] [address] Social History Tobacco Use Types Packs/Day Years [...] Mass Index 35.11 02/12/2012 10:36 AM CDT documented in this encounter Plan of Treatment Not on file documented as of this encounter Visit Diagnoses Not on filedocumented in this encounter
--- OUTSIDE RECORDS SUMMARY | 2024-04-29 22:45 | XMS_ITS | Encounter Summary ---
Author Organization [facility] Address [address] [place] [address]. [place] [address] Care Team Providers Care Display Specialist Name Role Phone Unavailable Primary Care Provider Unavailabl e Encounter Details Date Type Department Care Team (Late st Contact Info) Description 02/05/2012 Abstract [facility] Conversion Md, Generic Conversion, Social [...]
--- OUTSIDE RECORDS SUMMARY | 2024-04-29 22:46 | XMS_ITS | Encounter Summary ---
Author Organization [facility] Address [address] [place] [address] Son: Epic Prelude ADT CYNDI JON [address] Care Team Providers Care Laborer [employer]er Farm Name Role Phone Unavailable Primary Care Provider Unavailabl e Encounter Details Date Type Department Care Team (Latest Contact Info) Description 01/20/2020 Travel Social History Tobacco Use Types Packs/Day Years Used Date Smoking Tobacco: Former Cigarettes Q uit: 04/29/2009 Smokeless Tobacco: Never Alcohol Use Standard Drinks/Week Comments No 0 (1 standard drink = 0.6 oz pur e alcohol) Sex and Gender Information Value Date Recorded Sex Assigned at Not on file Gender Identity Not on file Sexual Orientation Not on file COVID-19 Exposure Response Date Recorded In the last month, have you been in contact with someone who was confirmed or suspected to have Coronavirus / COVID-19? No / Unsure 01/20/2020 8:05 AM CDT documented as of this encounter Plan of Treatment Not on file documented as of this encounter Visit Diagnoses Not on filedocumented in this encounter
--- OUTSIDE RECORDS SUMMARY | 2024-04-29 22:46 | XMS_ITS | Encounter Summary ---
Author Organization [facility] Address [address] [place] [address] Care Team Providers Care Welder/Installer Name Role Phone Unavailable Primary Care Provider Unavailabl e Reason for Visit * Reason Comments Post- Care Encounter Details Date Type Department Care Team (Late st Contact Info) Description 09/30/2012 2:45 PM CDT Office Visit [facility] [address] [facility] [address] [address] Elena Mcneil MD NO ADDRESS ON FILE Routine follow-up (Primary Dx) Social History Tobacco Use Types Packs/Day Years [...] Sign Reading Time Taken Comments Blood Pressure 112/84 09/30/2012 2:53 PM CDT Pulse - - Temperature - - Respiratory Rate - - Oxygen Saturation - - Inhaled Oxygen Concentration - - Weight 94.3 kg (208 lb) 09/30/2012 2:53 PM CDT Height 167.6 cm (5' 6 ) 09/30/2012 2:53 PM CDT Body Mass Index 33.57 09/30/2012 2:53 PM CDT documented in this encounter Progress Notes * Elena Mcneil MD - 09/30/2012 2:47 PM CDT Oanh is a 27 y.o. year old, comes for a follow up. She S/P vaginal delivery on 08/19/12 at 39 weeks gestation. Complications with delivery none. Baby was a 8 pound 2ounce viable male Baby's name-Marco. Patient plans to breastfeed. Taking nothing for pain. Bowel and bladder function is normal. Coping well with parenting. No evidence post depression. Pap due now. Wants to use condoms. EXAM: WDWN WF in NAD Abdomen: soft, non tender, non distended Pelvic: Ext/BUS: Normal external genitalia, no erythema, no discharge Vagina: normal, well-healed, physiologic discharge, without lesions Cervix: normal, well-healed, without lesions Pap: Pap smear done today, thin- prep method Uterus: normal size, well involuted, firm, non-tender Adnexa:No mass, fullness, tenderness Rectum:deferred ASSESSMENT: Normal Post Exam. PLAN: Discussed self-care. Increase activities as tolerated. Continue vitamins. Condoms Post gift. RTO 1 year documented in this encounter Plan of Treatment Not on file documented as of this encounter Procedures Procedure Name Priority Date/Time Associated Diagnosis Comments CERV/VAG CYTOPATH, THIN PREP STEWARD/STEWARDESS RAILROAD DINING CAR AND HPV Routine 09/30/2012 2:50 PM CDT documented in this encounter Results * CERV/VAG CYTOPATH, THIN PREP STEWARD/STEWARDESS RAILROAD DINING CAR AND HPV (09/30/2012 2:50 PM CDT) CLINICAL INFORMATION [employer] [facility] Comment:Information not prov ided LAST MENSTRUAL PERIOD [employer] [facility] Comment:INFORMATION NOT PROV IDED PREV PAP: [employer] [facility] Comment:INFORMATION NOT PROV IDED PREV BX: [employer] [facility] Comment:INFORMATION NOT PROV IDED SOURCE [employer] [facility] Comment:Endocervix ADEQUACY: [employer] [facility] Comment:SATISFACTORY FOR LATANYA LUATION INTERPRETATION [employer] [facility] Comment: Negative for intraepithelial lesion or malignancy. Atrophic pattern; predominantly parabasal cells COMMENT [employer] [facility] Comment: This Pap test has been evaluated with computer assisted technology. HEALTH PROMOTION SPECIALIST: [employer] [facility] Comment: MAF, CT(ASCP) Test Performed at: [employer] [facility] [address] [place], [place] ??[id number] ENMANUEL BRIONES DO, MPH HPV HIGH RISK DNA DETECTION NOT DETECTED NOT DETECTED [facility] Comment: Tested for high risk types 16,18,31,33,35,39,45,51,52, 56,58,59,68. The analytical performance characteristics of this assay, when used to test SurePath or vaginal specimens, have been determined by [employer]. Methodology: Hybrid Capture with Signal Amplification. 09/30/2012 2:50 PM CDT Elena Mcneil MD PATHOLOGY/CYTOLOGY [facility] Refer to clinic/hospital department [facility] [address] [place] [address] documented in this encounter Visit Diagnoses Diagnosis Routine follow-up- Primary documented in this encounter
--- OUTSIDE RECORDS SUMMARY | 2024-04-29 22:46 | XMS_ITS | Encounter Summary ---
Author Organization [facility] Address [address] [place] [address] Care Team Providers Care Laundry Tub Maker Name Role Phone Unavailable Primary Care Provider Unavailabl e Reason for Visit * Reason Comments Labs Only Encounter Details Date Type Department Care Team (Latest Contact Info) Description 01/25/2020 8:30 AM CDT Procedure visit [facility] [place] [address] [place] [address] Screening for unspecified condition (Primary Dx) Social History Tobacco Use Types [...] AM CDT documented as of this encounter Last Filed Vital Signs Vital Sign Reading Time Taken Comments Blood Pressure 124/72 01/25/2020 8:10 AM CDT Pulse - - Temperature - - Respiratory Rate - - Oxygen Saturation - - Inhaled Oxygen Concentration - - Weight - - Height - - Body Mass Index - - documented in this encounter Progress Notes * Oanh Nguyen - 01/25/2020 8:10 AM CDT Pt came in for blood draw, left AC successful, 1 stick pt tolerated well. Drawn by Nato. Pt states that her symptoms have resolved, it only lasted a few days. documented in this encounter Miscellaneous Notes * Result Encounter Note - Heidi Leroy NP - 01/26/2020 10:55 AM CDT Will send in MyChart: Oanh, Labs look ok. Your cholesterol is elevated. This can corrected withdiet and exercise. I do not see anything of concern that could be causing dizziness. How are your symptoms currently? Same, better, worse? If they continue, I would like for you to F/U so that we canfigure out what is going on! Thank you, Heidi TACKING STITCH REMOVER documented in this encounter Plan of Treatment Not on file documented as of this encounter Procedures Procedure Name Priority Date/Time Associated Diagnosis Comments CBC WITH DIFFERENTIAL Routine 01/25/2020 8:19 AM CDT Screening for unspecified condition TSH Routine 01/25/2020 8:19 AM CDT Screening for unspecified condition HEMOGLOBIN A1C Routine 01/25/2020 8:19 AM CDT Screening for unspecified condition LIPID PANEL Routine 01/25/2020 8:19 AM CDT Screening for unspecified condition COMPREHENSIVE METABOLIC PANEL Routine 01/25/2020 8:19 AM CDT Screening for unspecified condition documented in this encounter Results * HEMOGLOBIN A1C (01/25/2020 8:19 AM CDT) HEMOGLOBIN A1C 5.4 4.8 - 5.6 % [facility] Comment: ? Prediabetes: 5.7 - 6.4 ? Diabetes: >6.4 ? Glycemic control for adults with diabetes: <7.0 Blood 01/25/2020 8:19 AM CDT 01/25/2020 Narrative [facility] - 01/26/2020 4:35 AM CDT Performed at: ??01 - [facility] [place] [id number] [place], [place] ??[id number] Immigration Lawyer: Francisco Moreland PhD, Phone: ??[phone] Heidi Leroy NP CHEMISTRY ORDERABL ES Performing Organization Address [facility] Co de Phone Number [facility] [phone] * (ABNORMAL) LIPID PANEL (01/25/2020 8:19 AM CDT) CHOLESTEROL 229(H) 100 - 199 mg/dL [facility] TRIGLYCERIDE 159(H) 0 - 149 mg/dL [facility] HDL 34(L) >39 mg/dL [facility] VLDL CHOLESTEROL CALCULATED 29 5 - 40 mg/dL [facility] LDL CALCULATED 166(H) 0 - 99 mg/dL [facility] Blood 01/25/2020 8:19 AM CDT 01/25/2020 Narrative [facility] - 01/26/2020 8:36 AM CDT Performed at: ??01 - [facility] [address] ??[id number] Immigration Lawyer: Francisco Moreland PhD, Phone: ??[phone] Heidi Leroy NP CHEMISTRY ORDERABL ES Performing Organization Address [facility]/ZIP Co de Phone Number [facility] [phone] * COMPREHENSIVE METABOLIC PANEL (01/25/2020 8:19 AM CDT) GLUCOSE 92 65 - 99 mg/dL [facility] BUN 11 6 - 20 mg/dL [facility] CREATININE 0.77 0.57 - 1.00 mg/dL [facility] GFR 102 >59 mL/min/1.7 3 [facility] GFR, 117 >59 mL/min/1.7 3 [facility] BUN/CREAT RATIO 14 9 - 23 [facility] SODIUM 141 134 - 144 mmol/L [facility] POTASSIUM 4.6 3.5 - 5.2 mmol/L [facility] CHLORIDE 106 96 - 106 mmol/L [facility] CO2 24 20 - 29 mmol/L [facility] CALCIUM 9.0 8.7 - 10.2 mg/dL [facility] TOTAL PROTEIN 6.2 6.0 - 8.5 g/dL [facility] ALBUMIN 4.0 3.8 - 4.8 g/dL [facility] GLOBULIN 2.2 1.5 - 4.5 g/dL [facility] ALBUMIN/GLOBULIN RATIO 1.8 1.2 - 2.2 [facility] BILIRUBIN TOTAL 0.3 0.0 - 1.2 mg/dL [facility] ALKALINE PHOSPHATASE 112 39 - 117 IU/L [facility] AST 14 0 - 40 IU/L [facility] ALT 18 0 - 32 IU/L [facility] Blood 01/25/2020 8:19 AM CDT 01/25/2020 Narrative [facility] - 01/26/2020 7:36 AM CDT Performed at: ??01 - [address] ??[id number] Immigration Lawyer: Francisco Moreland PhD, Phone: ??[phone] Heidi Leroy NP CHEMISTRY ORDERABL ES Performing Organization Address [facility] de Phone Number [employer] [facility] [phone] * TSH (01/25/2020 8:19 AM CDT) TSH 1.760 0.450 - 4.500 uIU/mL [facility] Blood 01/25/2020 8:19 AM CDT 01/25/2020 Narrative [facility] - 01/26/2020 8:36 AM CDT Performed at: ??01 - [address] ??[id number] Immigration Lawyer: Francisco Moreland PhD, Phone: ??[phone] Heidi Leroy NP CHEMISTRY ORDERABL ES Performing Organization Address [facility] Co de Phone Number [facility] [phone] * (ABNORMAL) CBC WITH DIFFERENTIAL (01/25/2020 8:19 AM CDT) [facility] WBC 6.2 3.4 - 10.8 x10E3/uL [facility] RBC 4.72 3.77 - 5.28 x10E6/uL [facility] HEMOGLOBIN 11.9 11.1 - 15.9 g/dL [facility] HEMATOCRIT 38.4 34.0 - 46.6 % [facility] MCV 81 79 - 97 fL [facility] MCH 25.2(L) 26.6 - 33.0 pg [facility] MCHC 31.0(L) 31.5 - 35.7 g/dL [facility] RDW 13.8 11.7 - 15.4 % [facility] PLATELETS 315 150 - 450 x10E3/uL [facility] NEUTROPHIL 59 Not Estab. % [facility] LYMPHOCYTES 32 Not Estab. % [facility] MONOCYTE 6 Not Estab. % [facility] EOSINOPHILS 2 Not Estab. % [facility] BASOPHILS 1 Not Estab. % [facility] NEUTROPHIL ABSOLUTE 3.6 1.4 - 7.0 x10E3/uL [facility] LYMPHOCYTE ABSOLUTE 2.0 0.7 - 3.1 x10E3/uL [facility] MONOCYTE ABSOLUTE 0.4 0.1 - 0.9 x10E3/uL [facility] EOSINOPHIL ABSOLUTE 0.2 0.0 - 0.4 x10E3/uL [facility] BASOPHILS ABSOLUTE 0.1 0.0 - 0.2 x10E3/uL [facility] IMMATURE GRANULOCYTES 0 Not Estab. % [facility] IMMATURE GRANULOCYTES ABSOLUTE 0.0 0.0 - 0.1 x10E3/uL [facility] Blood 01/25/2020 8:19 AM CDT 01/25/2020 Narrative [facility] - 01/26/2020 5:35 AM CDT Performed at: ??01 - [facility] [address], [place], [place] ??[id number] Immigration Lawyer: Francisco Moreland PhD, Phone: ??[phone] Heidi Leroy NP HEMATOLOGY ORDERAB [facility] [phone] documented in this encounter Visit Diagnoses Diagnosis Screening for unspecified condition- Primary documented in this encounter
--- OUTSIDE RECORDS SUMMARY | 2024-04-29 22:46 | XMS_ITS | Clinical Summary ---
Author Organization [facility] Address [address] [place] [address] Phone Care Team Providers Care Asw/Asuw Tactical Air Controller Name Role Phone Unavailable Primary Care Provider Unavailabl e Allergies No known active allergies Medications Medication Sig Dispensed Refills Start Date End Date Status LAMOTRIGINE ORAL Take by mouth. Acti ve buspirone HCl (BUSPIRONE ORAL) Take by mouth. Active Active Problems No known active problems Resolved Problems Problem Noted Date Diagnosed Date Resolved Date SROM 1930, pit, h/o LEEP and L ectopic, gbs neg, A pos 08/18/2012 09/30/2012 Ctx, elevated BPs (labs pending) 08/17/2012 09/30/2012 Abd cramping 29.3w, 06/13/2012 09/30/2012 Supervision of other normal 03/12/2012 09/30/2012 Family History Medical History Relation Name Comments Diabetes Father Hypertension Father Breast Cancer Maternal Grandmother 80s Lung Cancer Maternal Grandmother smoker Diabetes Paternal Grandfather Heart Disease Paternal Grandfather Breast Cancer Paternal Grandmother & skin , 60s Relation Name Status Comments Father Maternal Grandmother [...] Pressure 124/72 01/25/2020 8:10 AM CDT Pulse 72 08/21/2012 7:46 AM CDT Temperature 36.9 ??C (98.5 ??F) 08/21/2012 7:46 AM CD T Respiratory Rate 16 08/21/2012 7:46 AM CDT Oxygen Saturation 99% 08/19/2012 8:16 AM CDT Inhaled Oxygen Concentration - - Weight 94.3 kg (208 lb) 09/30/2012 2:53 PM CDT Height 167.6 cm (5' 6 ) 09/30/2012 2:53 PM CDT Body Mass Index 33.57 09/30/2012 2:53 PM CDT Plan of Treatment Health Maintenance Due Date Last Done Comments HEPATITIS B VACCINES (1 of 3 - 19+ 3-dose series) 2005 CERVICAL CANCER SCREENING 2016 09/30/2012 INFLUENZA VACCINE (#1) 2023 DTAP/TDAP/TD VACCINES (2 - T d or Tdap) 12/28/2024 12/28/2014 HPV VACCINES Aged Out No longer eligi ble based on patient's age to complete this topic PNEUMOCOCCAL VACCINE 0-64 YEARS Aged Out No longer eligible based on patient's age to complete this topic Procedures Procedure Name Priority Date/Time Associated Diagnosis Comments CERV/VAG CYTOPATH, THIN PREP UTILITY HELICOPTER REPAIRER AND HPV Routine 09/30/2012 2:50 PM CDT from Last 3 Months or Most Recently Relevant to Health Maintenance Results * CERV/VAG CYTOPATH, THIN PREP UTILITY HELICOPTER REPAIRER AND HPV (09/30/2012 2:50 PM CDT) CLINICAL INFORMATION [facility] Comment:Information not prov ided LAST MENSTRUAL PERIOD [facility] [employer] [facility] Comment:INFORMATION NOT PROV IDED PREV PAP: [facility] [employer] [facility] Comment:INFORMATION NOT PROV IDED PREV BX: [facility] Comment:INFORMATION NOT PROV IDED SOURCE [facility] [employer] [facility] Comment:[employer] ADEQUACY: [facility] [employer] [facility] Comment:SATISFACTORY FOR LATANYA LUATION INTERPRETATION [facility] [employer] [facility] Comment: Negative for intraepithelial lesion or malignancy. Atrophic pattern; predominantly parabasal cells COMMENT [facility] [employer] [facility] Comment: This Pap test has been evaluated with computer assisted technology. FOUNDATION ASSISTANT: [employer] [facility] Comment: MAF, CT(ASCP) Test Performed at: [facility] [address] [place], [place] ??[phone] ENMANUEL BRIONES DO, MPH HPV HIGH RISK DNA DETECTION NOT DETECTED NOT DETECTED [employer] [facility] Comment: Tested for high risk types 16,18,31,33,35,39,45,51,52, 56,58,59,68. The analytical performance characteristics of this assay, when used to test SurePath or vaginal specimens, have been determined by [employer]. Methodology: Hybrid Capture with Signal Amplification. 09/30/2012 2:50 PM CDT Elena Mcneil MD PATHOLOGY/CYTOLOGY O [employer] [employer] Refer to clinic/hospital department [facility] [employer] [facility] [address] [place] [address] from Last 3 Months or Most Recently Relevant to Health Maintenance Advance Directives For more information, please contact: [phone] * Full Code (Latest Code Status on File) Date Activated Date Inactivated Comments 08/19/2012 3:32 PM 08/21/2012 3:26 PM * Full Code Date Activated Date Inactivated Comments 08/19/2012 12:07 AM 08/19/2012 3:32 PM * Full Code Date Activated Date Inactivated Comments 08/18/2012 11:28 PM 08/19/2012 12:07 AM * Full Code Date Activated Date Inactivated Comments 07/21/2012 11:09 AM 07/21/2012 5:50 PM * Full Code Date Activated Date Inactivated Comments 06/13/2012 6:26 PM 06/13/2012 10:46 PM
--- OUTSIDE RECORDS SUMMARY | 2024-04-29 22:46 | XMS_ITS | Encounter Summary ---
Author Organization [facility] Address [address] [place] [address] Care Team Providers Care Floral Assistant Name Role Phone Unavailable Primary Care Provider Unavailabl e Reason for Visit * Auth/Cert - Closed Specialty Diagnoses / Procedures Referred By Renee t Referred To Contact Obstetrics Diagnoses r/o srom [facility] [address] [place] [address] Referral ID Status Reason Start Date Expiration Date Visits Re quested Visits Authorized [id number] Closed 1 1 Encounter Details Date Type Department Care Team (Latest Contact Info) Description 08/18/2012 11:11 PM CDT - 08/21/2012 1:20 PM CDT Hospital Encounter [facility] Mother/Baby [address] [address] [place] [address] Elena Mcneil MD NO ADDRESS ON FILE Discharge Disposition: Home or Self Care Social [...] Sign Reading Time Taken Comments Blood Pressure 130/70 08/21/2012 7:46 AM CDT Pulse 72 08/21/2012 7:46 AM CDT Temperature 36.9 ??C (98.5 ??F) 08/21/2012 7:46 AM CD T Respiratory Rate 16 08/21/2012 7:46 AM CDT Oxygen Saturation 99% 08/19/2012 8:16 AM CDT Inhaled Oxygen Concentration - - Weight 108.9 kg (240 lb) 08/18/2012 11:48 PM CDT Height 167.6 cm (5' 6 ) 08/18/2012 11:48 PM CDT Body Mass Index 38.74 08/18/2012 11:48 PM CDT documented in this encounter Discharge Summaries * Mir Bojorquez MD - 09/19/2012 10:32 AM CDT Physician Discharge Summary - Delivery Patient: Oanh Ortiz / 27 y.o. / female : 1985 [place] Data: Apgars: Information for the patient's : Marco Ortiz [[id number]] 1 Minute Score: 8 (08/19/12 1623) 5 Minute Score: 9 (08/19/12 1623) Weight: Weight: Information for the patient's : Marco Ortiz [[id number]] Delivery Time: 1508 (08/19/12 1624) Information for the patient's : Marco Ortiz [[id number]] Weight: 8 lb 2 oz (3.685 kg) (08/19/12 1623) Physician: Elena Mcneil MD Procedure: Term vaginal delivery Admit date: 08/18/2012 Admission diagnoses: Term Discharge date/time: 08/21/2012 1:20 PM Discharge Diagnosis Term - Delivered Pertinent History & Physical See H&P. Hospital Course Uncomplicated. Discharge Labs HEMOGLOBIN Date Value Range Status 08/17/2012 10.7* 11.8 - 14.8 g/dL Final 05/08/2012 10.7* 11.8 - 14.8 g/dL Final PLATELETS Date Value Range Status 08/17/2012 165 140 - 350 K/uL Final Discharge Condition: stable. Disposition She is discharged to home. See discharge instructions. Appropriate instructions were reviewed with the patient including no lifting >10 lbs & nothing per vagina x 6 wks. She'll followup in theoffice in 6 wks. Discharge Medications Current Discharge Medication List CONTINUE taking these medications iron bisgly & ps-FA-B&C#12-suc 65 mg-65 mg -1,000 mcg (24) Tab Take 1 Tab by mouth daily. Provider: Elena Mcneil Quantity: 90 Tab Refills: 1 ONE ORAL Take by mouth. Refills: 0 documented in this encounter Discharge Instructions * Discharge Instructions* Alicja Castro RN - 08/21/2012 11:59 AM CDT PRESCRIPTIONS Prescriptions given? Over the counter motrin ACTIVITY/EXERCISE Recovery is a progressive process. It may take 6 to 8 weeks to return to pre- activity levels. Take time to rest each day. Limit visitors for the first few weeks. If you smoke you are advised to quit. Avoid second-hand smoke exposure and do not let people smoke in your home. Ask your health care provider for advice if you need assistance to stop smoking. EPISIOTOMY/STITCHES The stitches are absorbable and do not need to be removed. Rinse area with warm water after going to the bathroom. Gently dry perineal area from front to back. Change perineal pads frequently. You may use a plastic sitz bath kit or sit in a tub of 6 to 8 inches of warm water for 30 minutes 1 to 3 times per day. You may apply Tucks when you change your pad. BREAST CARE Wear a well fitting support bra, day and night. IF : ?? Wash breasts with warm water only during your daily shower ?? Do not wash breast before or after each feeding as this may cause dry, cracked nipples ?? For sore nipples, apply colostrum or breast milk to promote healing. Purified lanolin may also be applied to nipple and cover with breast pad. Lanolin does not need to be washed off prior to next feeding. ?? If breasts are engorged, regularly remove milk from the breasts every 1 1/2 - 3 hours (via or use of a hospital grade pump). For additional comfort, apply cold compresses for 10 - 15minutes as needed. ?? If using breast pads, change with each feeding ?? For advice call: office [phone] IF BOTTLE FEEDING ?? Avoid breast stimulation, such as showers and pumping breasts. ?? If breasts are painful and engorged, apply ice packs for 15 - 20 minutes to the breasts or underthe arms. VAGINAL DISCHARGE Bleeding diminishes in amount each day. The color will change from red to pink to yellow-white. Thedischarge may last 2 - 5 weeks. It may increase and become bright red with activity but rest shouldrelieve this. Do not douche or use tampons. HEMORRHOIDS If they appear in or at the time of delivery, they will slowly disappear. Use of Tucks, sitz baths, or local medication will give relief. Avoid constipation. ABDOMINAL CRAMPS After- pains may be felt when . Talk with your doctor about pain medication. MENSTRUATION You may start to menstruate in 6 - 10 weeks if you are not or within 6 months if you are . The first two periods are often irregular and may be very heavy with clots. It may take a few months to establish a regular cycle and it may be somewhat different in length from before . SEXUAL INTERCOURSE You may resume intercourse after approximately four weeks or when the perineal area is not tender and vaginal bleeding has subsided. control measures should be used when you resume sexual intercourse. SIGNS/SYMPTOMS TO REPORT Call your doctor if you have any of the following: ?? Fever higher than 100 degrees or chills ?? Fainting ?? Frequency or burning with urination ?? Heavy (more than 1 pad per hour), prolonged or foul smelling vaginal bleeding or discharge ?? Swelling, redness, tenderness in breasts ?? Swelling, redness, tenderness in legs ?? Severe mood swings ?? Thoughts of harming yourself or your baby ?? documented in this encounter Medications at Time of Discharge Medication Sig Dispensed Refills Start Date End Date iron bisgly & ps-FA-B&C#12-suc (IROSPAN 20/10) 65 mg-65 mg -1,000 mcg (24) Oral Tab Take 1 Tab by mouth daily. 90 Tab 1 05/12/2012 01/20/2020 VIT #108/IRON/FA ( ONE ORAL) Take by mouth. 2019 documented as of this encounter Progress Notes * Alicja Castro RN - 08/21/2012 1:20 PM CDT Oanh Ortiz will be discharged via wheelchair to home. Oanh Ortiz is accompanied by spouse and will be transported via private vehicle. * Alicja Castro RN - 08/21/2012 12:17 PM CDT Into room to provide discharge teaching and give AVS. Discharge pending per order * Elena Mcneil MD - 08/21/2012 11:46 AM CDT S: going well. Motrin for pain. Ready to go home. O: Filed Vitals: 08/20/12 0738 08/20/12 1217 08/20/12 1938 08/21/12 0746 BP: 120/90 140/90 136/88 130/70 Pulse: 80 70 80 72 Temp: 99.5 ??F (37.5 ??C) 99 ??F (37.2 ??C) 99.1 ??F (37.3 ??C) 98.5 ??F (36.9 ??C) TempSrc: Oral Oral Oral Oral Resp: 20 18 18 16 Height: Weight: SpO2: Perineum intact A/P: PPD #2 Doing well. Routine care. D/C home. Follow up 6 weeks. Elena Mcneil MD * Leslie Valle MD - 08/19/2012 2:47 PM CDT Strip round note 2:47 PM 15 minutes of FHT reviewed with in-house attending and L&D charge nurse. Category 2 Attending has been at bedside. * Luisa Bustamante RN - 08/19/2012 1:[address] Mcneil to bedside. SVE at 1255. 10100/1. Villegas catheter discontinued. Started pushing with Dr Mcneil remaining at bedside. FSE working at this time. Ultrasound transducer discontinued. * Daysi Angeles RN - 08/19/2012 9:[address] Mcneil updated on patient's labor progress. * Daysi Angeles RN - 08/19/2012 7:45 AM CDT Patient requesting epidural. Anesthesia notified of patient's epidural request. * Ml Padgett RN - 08/19/2012 5:44 AM CDT Patient in bathtub, FHT difficult to trace wt this time. RN at bedside to continually adjust monitor. movement present. * Marcie Briones MD - 08/19/2012 1:19 AM CDT R4 strip round note 1:20 AM 15 minutes of FHT reviewed with in-house attending and L&D charge nurse. Category 1 Action: CEFM Marcie Briones MD * Nayeli Guardado MD - 08/19/2012 12:55 AM CDT WEU to L&D Transfer Note Subjective: Patient transferred safely from the WEU to Labor & Delivery for SROM at 1930. was achieved by IVF but otherwise uncomplicated. History of LEEP in 2004 and left lap salpingectomy in 2009. Patient comfortable with contractions. No complaints at this time. Objective: BP 135/73 Pulse 75 Temp(Src) 98.5 ??F (36.9 ??C) (Oral) Resp 20 Ht 5' 6 (1.676 m) Wt 240lb (108.863 kg) BMI 38.74 kg/m2 LMP 11/22/2011 ? No FHR: 120, mod variability, +accels Gallatin: ctx q 10 mins SVE: /-2 per clinical practitioner/Plan: 27 y.o. IUP @ 39w0d 1. Vital signs stable, afebrile 2. SROM: augment with pitocin PRN 3. status: cat I 4. GBS neg 5. Dr. Fry aware 6. Anticipate Nayeli Guardado MD PGY1 documented in this encounter H&P Notes * Shae Ibarra CNM - 08/18/2012 11:31 PM CDT OB H&P Chief Complaint: HPI: Oanh Ortiz is a 27 y.o. female @ 38w6d weeks gestation who presents to the Ob triage from home with SROM clear fluid at 1930 this evening. Pt states she was sitting and felt a large gush of fluid. States her GBS was negative. Rates pain at 2 on a scale of 1 to 10. Pt coughed and a small amount of pink tinged fluid was noted from the vagina. Her primary shipyard helper is Elena Mcneil MD. Current Problem List: 1. OB History Grav Para Term Abortions TAB SAB Ect Mult Living 2 1 1 # Outc Date GA Lbr Ray/2nd Wgt Sex Del Anes PTL Lv 1 ECT 2009 2 CUR GYNHX/ Past Medical History Diagnosis Date ??? PCOS (polycystic ovarian syndrome) ??? Abnormal Pap smear and cervical HPV (human papillomavirus) ??? Infertility associated with anovulation ??? Pap smear, abnormal ??? Bipolar 1 disorder ??? 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 H/O LEEP (loop electrosurgical excision procedure) of cervix complicating 2004 ??? Unspecified deficiency anemia iron supplements Past Surgical History Procedure Date ??? Hx salpingectomy 2009 left for ectopic ??? Hx leep procedure 2005 History Social History ??? Marital Status: Spouse Name: N/A Number of Children: N/A ??? Years of Education: N/A Occupational History ??? Other ??? Not Employed Social History Main Topics ??? Smoking status: Former Smoker Quit date: 04/29/2009 ??? Smokeless tobacco: Never Used ??? Alcohol Use: No ??? Drug Use: No ??? Sexually Active: Yes -- Male partner(s) Other Topics Concern ??? Not on file Social History Narrative ??? No narrative on file Family History Problem Relation Age of Onset ??? Diabetes Father ??? Diabetes Paternal Grandfather ??? Heart Disease Paternal Grandfather ??? Breast Cancer Paternal Grandmother & skin, 60s ??? Lung Cancer Maternal Grandmother smoker ??? Breast Cancer Maternal Grandmother 80s ??? Hypertension Father Prescriptions prior to admission Medication Sig Dispense Refill ? ? iron bisgly & ps-FA-B&C#12-suc (IROSPAN 24/6) 65 mg-65 mg -1,000 mcg (24) Oral Tab Take1 Tab by mouth daily. 90 Tab 1 ??? VIT #108/IRON/FA ( ONE ORAL) Take by mouth. No Known Allergies The above has been reviewed with the patient & documented in the electronic record. Review of Systems No fever, SOB, no dysuria, or GI complaints. Constitutional: Negative for fever HEENT: Negative for headache, visual changes. Respiratory: Negative for SOB. Cardiovascular: Negative for chest pain. Gastrointestinal: Negative for abdominal pain, constipation, or diarrhea Genitorurinary: Negative for dysuria, frequency. No vaginal bleeding, + LOF. Musculoskeletal: Negative for back pain Skin: Negative for rash Neurological: Negative for syncope, dizziness Hematological: Negative for bruising/bleeding easily Psychiatric: Negative Exam: There were no vitals filed for this visit. Additional B/P's Constitutional: alert, no distress Lungs: clear to auscultation bilaterally Heart: regular rate & rhythm, no murmur Abdomen: soft, gravid, no fundal tenderness, vertex per leopolds Musculoskeletal: No clubbing, cyanosis, or edema. No calf tenderness. FHT: 135's reactive, mod variability, +accels, no decels TOCO: irrregular Cervix: Dilation: Dilation-Cervical: 1 cm (08/18/122329) Effacement Percentage-Cervical: 80 (08/18/122329) Station: -2 (08/18/122329) Effacement: Station: Speculum: Pooling Fern + per slide Wet prep: Bedside Ultrasound: Vertex GBS: + Assessment: 1. 27 yr old at 38 6/7wks IUP presents to Ob triage from home with SROM clear fluid At 1930 this evening. Pt states she felt a large gush of fluid . 2. FHR 135's reactive, mod variability, cat 1, 3. [place]: irregular 4. GBS negative per pt 5. Vag exam: Cervix 1/80/-2/scar tissue felt on exam 6. Hx of leep procedure, Hx of ectopic with first 7. Grossly SROM, +ferning on slide 8. Vertex per U/S IMP: SROM at term Plan: Observe in WEU NST Vag exam Fern test Hep lock Desires to go natural D/W , will admit to L&D No pitocin for 3-4 hours Epidural if pt desires Transfer to L&D documented in this encounter OR Notes * OR Anesthesia - Scanning, St - 08/25/2012 9:15 PM CDT Electronically signed by Mere [facility] Bridge Gang Worker Incoming at 08/25/2012 9:15 PM CDT documented in this encounter Miscellaneous Notes * Scanned Form - Scanning, St - 08/25/2012 9:15 PM CDT Electronically signed by Mere [facility] Bridge Gang Worker Incoming at 08/25/2012 9:15 PM CDT * Scanned Form - Scanning, St - 08/25/2012 9:15 PM CDT Electronically signed by Mere [facility] Bridge Gang Worker Incoming at 08/25/2012 9:15 PM CDT * Scanned Form - Scanning, St[facility] - 08/25/2012 9:15 PM CDT Electronically signed by Interface, [facility] Bridge Gang Worker Incoming at 08/25/2012 9:15 PM CDT * Delivery - Scanning, [facility] - 08/25/2012 9:15 PM CDT Electronically signed by Interface, [facility] Bridge Gang Worker Incoming at 08/25/2012 9:15 PM CDT * Assessment & Plan Note - Scanning, [facility] - 08/25/2012 9:15 PM CDT Electronically signed by Interface, [facility] Bridge Gang Worker Incoming at 08/25/2012 9:15 PM CDT * Patient Instructions - Scanning, [facility] - 08/25/2012 9:15 PM CDT Electronically signed by Interface, [facility] Bridge Gang Worker Incoming at 08/25/2012 9:15 PM CDT * Delivery - Elena Mcneil MD - 08/19/2012 3:28 PM CDT + Delivery Note 08/19/12 27 yo WF at 39 weeks with SROM. uncomplicated Labor augmented Anesthesia: epidural Delivering Skin Toggler: Tarun Delivery type: Spontaneous vaginal delivery ?: No Position: Vertex Findings & Description of Procedure Viable male Intact Placenta with 3 vessel cord. Cord blood obtained. Nuchal cord? yes Cord pH obtained? No Viable male 8lb 2oz , Apgars 8 and 9. Clear fluid bulb suctioned Right mediolateral Episiotomy 2nd degree repaired with 3-0 vicryl per usual fashion. Extension: no EBL: 300 ml Mother/baby stable. Complications: none documented in this encounter Plan of Treatment Not on file documented as of this encounter Procedures Procedure Name Priority Date/Time Associated Diagnosis Comments SCALP ELECTRODE Routine 08/19/2012 12:07 AM CDT INTRAUTERINE PRESSURE CATHETER Routine 08/19/2012 12:07 AM CDT TYPE AND SCREEN Stat 08/18/2012 11:55 PM CDT NONSTRESS TEST Routine 08/18/2012 11:28 PM CDT documented in this encounter Results * TYPE AND SCREEN (08/18/2012 11:55 PM CDT) ANTIBODY SCREEN Negative [facility] HISTORY CHECK No Historical ABO/Rh [facility] ABO/RH TYPE A Positive [facility] SPECIMEN LIFE 3 days from drawdate [facility] Blood specimen (specimen) 08/18/2012 11:55 PM CDT 08/19/2012 12:33 AM CDT Kaylee Fry MD BLOOD BANK ORDERABLE S INTERFACE SYSTEM Refer to clinic/hospital department [facility] CLIA# [id number] [address] [place] [address] documented in this encounter Visit Diagnoses Diagnosis SROM 1930, pit, h/o LEEP and L ectopic, gbs neg, A pos Premature rupture of membranes in , unspecified as to episode of care documented in this encounter Administered Medications Inactive Administered Medications - up to 3 most recent administrations Medication Order MAR Action Action Date Dose Rate Site docusate sodium (COLACE) capsule 100 mg 100 mg, Oral, TWO TIMES DAILY, First dose on Sat08/19/12 at 2100, Until Discontinued, Routine Given 08/21/2012 9:03 AM CDT 100 mg Given 08/20/2012 8:15 PM CDT 100 mg Given 08/20/2012 9:45 AM CDT 100 mg fentaNYL PF (SUBLIMAZE) 50 mcg/mL injection 15 mcg 15 mcg, IntraTHEcal, ONE TIME ONLY, 1 dose, On Sat08/19/12 at 0800, Routine, (ANESTHESIA LABOR ORDER) Given 08/19/2012 8:14 AM CDT 15 mcg fentaNYL-bupivacaine 2 mcg/ml-0.075% in sodium chloride 0.9% (PF) infusion 250 mL, Epidural, at 8 mL/hr, TITRATE, Starting on Sat08/19/12 at 0245, Until Aurea 08/21/12 at 1526 New Bag 08/19/2012 8:21 AM CDT 250 mL 8 mL/hr ibuprofen (MOTRIN) tablet 600 mg 600 mg, Oral, EVERY 8 HOURS PRN, Starting on Sat08/19/12 at 1532, Until Sat08/21/12 at 1526, Pain, Routine Given 08/21/2012 5:50 AM CDT 600 mg Given 08/20/2012 8:17 PM CDT 600 mg Given 08/20/2012 9:44 AM CDT 600 mg lactated ringers solution IV, at 75 mL/hr, CONTINUOUS, Starting on Sat08/19/12 at 0000, Until Sat08/21/12 at 1526, Routine, May saline lock IV if pt requests Bag Switched 08/19/2012 1:33 PM CDT 75 mL/hr Bag Switched 08/19/2012 11:52 AM CDT 75 mL/hr Bag Switched 08/19/2012 8:45 AM CDT 75 mL/hr MEPIVACAINE 1 % INJECTION 1 dose, Starting on Sat08/19/12 at 1514, Until Sat08/19/12 at 1518, Angeles MOSESLL: cabinet override Given 08/19/2012 3:18 PM CDT 500 mg Perineum ondansetron (ZOFRAN) 4 mg/2 mL injection 4 mg 4 mg, IV, EVERY 6 HOURS PRN, Starting on Sat08/19/12 at 0004, Until Sat08/21/12 at 1526, Nausea/Emesis, Routine Given 08/19/2012 6:18 AM CDT 4 mg oxyCODONE-acetaminophe n (PERCOCET) 10-325 mg per tablet 1 Tab 1 Tablet, Oral, EVERY 4 HOURS PRN, Starting on Sat08/20/12 at 0006, Until Sat08/21/12 at 1526, prn, Routine Given 08/20/2012 1:11 AM CDT 1 Tablet oxytocin (PITOCIN) 30 units in lactated ringers 500 mL infusion 1 rocio-units/min (rounded to 1 mL/hr), IV, TITRATE, Starting on Sat08/19/12 at 0015, Until Sat08/21/12 at 1526, Routine, May start pitocin in 3-4 hours Rate Change 08/19/2012 10:11 AM CDT 8 rocio-units/min 8 mL/hr Rate Change 08/19/2012 9:16 AM CDT 6 rocio-units/min 6 mL/ hr Rate Change 08/19/2012 7:29 AM CDT 4 rocio-units/min 4 mL/ hr OXYTOCIN IN LACTATED RINGERS 20 UNIT/1,000 ML IV 1 dose, Starting on Sat08/19/12 at 1304, Until Sat08/19/12 at 1518, [place] OMNICELL: cabinet override New Bag 08/19/2012 3:18 PM CDT 20 Un its mL/hr vit-iron fumarate-fa (VIKTORIA ) 28-0.8 mg per tablet 1 Tab 1 Tablet, Oral, DAILY, First dose on Sat08/19/12 at 1800, Until Discontinued, Routine Given 08/21/2012 9:03 AM CDT 1 Tablet Given 08/20/2012 8:15 PM CDT 1 Tablet Given 08/19/2012 8:45 PM CDT 1 Tablet documented in this encounter Active and Recently Administered Medications Times are shown in CDT. Scheduled Medication Order 08/19/2012 08/20/2012 08/21/2012 docusate sodium (COLACE) capsule 100 mg (CANCELED) 100 mg, Oral, TWO TIMES DAILY, First dose on Sat08/19/12 at 2100, Until Discontinued, Routine 2044 (Given - Provider: Terri Sánchez RN) 09 (Given - Provider: Evie Ferguson RN)2014 (Given - Provider: Elena Wilder, RIYA) 09 (Given - Provider: Alicja Castro, RIYA) fentaNYL PF (SUBLIMAZE) 50 mcg/mL injection 15 mcg (COMPLETED) 15 mcg, IntraTHEcal, ONE TIME ONLY, 1 dose, On Sat08/19/12 at 0800, Routine, (ANESTHESIA LABOR ORDER) 0814 (Given - Provider: Raffy Valderrama DO) vit-iron fumarate-fa (VIKTORIA ) 28-0.8 mg per tablet 1 Tab (CANCELED) 1 Tablet, Oral, DAILY, First dose on Sat08/19/12 at 1800, Until Discontinued, Routine 2044 (Given - Provider: Terri Sánchez RN) 2014 (Given - Provider: Elena Wilder, RIYA) 09 (Given - Provider: Alicja Castro, RIYA) Continuous Medication Order 08/19/2012 08/20/2012 08/21/2012 fentaNYL-bupivacaine 2 mcg/ml-0.075% in sodium chloride 0.9% (PF) infusion (CANCELED) 250 mL, Epidural, at 8 mL/hr, TITRATE, Starting on Sat08/19/12 at 0245, Until Aurea 08/21/12 at 1526 0245 (Stopped - Provider: Chichi Medel RN - Comment: Ordered in Labor and Delivery..pt off unit)0821 (New Bag - Provider: Raffy Valderrama DO) lactated ringers solution (CANCELED) IV, at 75 mL/hr, CONTINUOUS, Starting on Sat08/19/12 at 0000, Until Aurea 08/21/12 at 1526, Routine, May saline lock IV if pt requests 0622 (Bag Switched - Provider: Ml Rodriguez RN)0845 (Bag Switched - Provider: Daysi Angeles RN)1152 (Bag Switched - Provider: Daysi Angeles RN)1333 (Bag Switched - Provider: Daysi Angeles RN) oxytocin (PITOCIN) 30 units in lactated ringers 500 mL infusion (CANCELED) 1 rocio-units/min (rounded to 1 mL/hr), IV, TITRATE, Starting on Sat08/19/12 at 0015, Until Aurea 08/21/12 at 1526, Routine, May start pitocin in 3-4 hours 0413 (New Bag - Provider: Ml Padgett RN)0530 (Rate Change - Provider: Ml Padgett RN)0622 (Rate Change - Provider: Ml Padgett RN)0729 (Rate Change - Provider: Daysi Angeles RN)0916 (Rate Change - Provider: Daysi Angeles RN)1011 (Rate Change - Provider: Daysi Angeles RN)1201 (Stopped - Provider: Daysi Angeles RN) PRN Medication Order 08/19/2012 08/20/2012 08/21/2012 ibuprofen (MOTRIN) tablet 600 mg (CANCELED) 600 mg, Oral, EVERY 8 HOURS PRN, Starting on Sat08/19/12 at 1532, Until Aurea 08/21/12 at 1526, Pain, Routine 1821 (Given - Provider: Terri Sánchez, RIYA) 0002 (Given - Provider: Chichi Medel, RN)0944 (Given - Provider: Evie Ferguson, RIYA)2017 (Given - Provider: Elena Wilder, RIYA) 0550 (Given - Provider: Elena Wilder, RN) ondansetron (ZOFRAN) 4 mg/2 mL injection 4 mg (CANCELED) 4 mg, IV, EVERY 6 HOURS PRN, Starting on Sat08/19/12 at 0004, Until Sat08/21/12 at 1526, Nausea/Emesis, Routine 0618 (Given - Provider: Ml Rodriguez RN) oxyCODONE-acetaminophe n (PERCOCET) 10-325 mg per tablet 1 Tab (CANCELED) 1 Tablet, Oral, EVERY 4 HOURS PRN, Starting on Sat08/20/12 at 0006, Until Sat08/21/12 at 1526, prn, Routine 0111 (Given - Provider: Chichi Medel RN) No Frequency Medication Order 08/19/2012 08/20/2012 08/21/2012 MEPIVACAINE 1 % INJECTION (COMPLETED) 1 dose, Starting on Sat08/19/12 at 1514, Until Sat08/19/12 at 1518, Karthik OMNICELL: cabinet override 1518 (Given - Provider: Daysi Angeles RN - Comment: given by Dr. Mcneil) OXYTOCIN IN LACTATED RINGERS 20 UNIT/1,000 ML IV (COMPLETED) 1 dose, Starting on Sat08/19/12 at 1304, Until Sat08/19/12 at 1518, Karthik OMNICELL: cabinet override 1518 (New Bag - Provider: Daysi Angeles RN) documented in this encounter
--- OUTSIDE RECORDS SUMMARY | 2024-04-29 22:46 | XMS_ITS | Encounter Summary ---
Author Organization [facility] Address [address] [place] [address] Care Team Providers Care Endoscopy Tech Name Role Phone Unavailable Primary Care Provider Unavailabl e Encounter Details Date Type Department Care Team (Latest Contact Info) Description 01/20/2020 1:30 PM CDT Telephone Check Up [facility] [place] [address] [place] [phone] Heidi Leroy NP [address] [place] [phone] Dizziness (Primary Dx) Social History Tobacco Use Types [...] AM CDT documented as of this encounter Progress Notes * Heidi Leroy NP - 01/20/2020 1:30 PM CDT This encounter was completed via audio-only two way synchronous communication. Patient's identity confirmed yes Patient gave verbal consent to have these services billed to their insurance and expressed understanding that co-insurance and deductible may apply: yes Time spent by the provider delivering the care documented in this encounter 25 minutes. HISTORY OF PRESENT ILLNESS Oanh Wallheimer, a 34 y.o. female presents with a Chief Complaint of dizziness. Subjective HPI Nhi is a 34 y/o F who was in her usual state of health until yesterday morning, when she woke up feeling dizzy, nauseous, and faint. Pt. States she felt fatigued throughout the day and felt like shewas stumbling around the house when she got out of bed. This morning, Pt. States she started experiencing headache and blurry vision and subjective spinning/dizziness. Pt. initially thought she haslow blood sugar, Pt. States she has a family Hx of DM and is unsure if she has DM, has not had A1C drawn in over a year. Pt. Tried to drink orange juice this morning, but then vomited x1. Pt. Denies stomach pain or upset stomach at this time. 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 Pt. denies seasonal allergies, and does not have access to BPmachine or BG monitor. But states her parents do. Pt. Denies Hx of hypotension. Discussed differentials with pt. Will check labs on Saturday. Pt agrees with this plan. REVIEW OF SYSTEMS Review of Systems Constitutional: Positive for fatigue. Negative for fever. Eyes: Positive for visual disturbance. Blurred vision Respiratory: Negative. Cardiovascular: Negative for chest pain and palpitations. Gastrointestinal: Positive for nausea and vomiting. Endocrine: Negative. Genitourinary: Negative. Musculoskeletal: Negative. Skin: Negative. Allergic/Immunologic: Negative for environmental allergies. Neurological: Positive for dizziness, light-headedness and headaches. Hematological: Negative. Psychiatric/Behavioral: Negative. Objective PHYSICAL EXAM There were no vitals taken for this visit. Physical Exam Physical exam deferred due to telephone visit. NAD Procedures N/A Assessment Dizziness could be due to an inner ear issue, viral infection, hypoglycemia or hypotension. Pt. Needs to come into clinic for further eval. ASSESSMENT and PLAN: ICD-10-CM ICD-9-CM 1. Dizziness Pt. Needs to come into clinic for evaluation and labs. Pt. Needs HGB A1C checked. Pt. May take meclazine OTC for nausea/dzziness in the mean time. Small frequent bland snacks. Stay hydrated. Will F/Uwhen labs are back. Call clinic for persistent or worsening symptoms. R42 780.4 Note by: FIDEL Stallings/ Co-signed: CLARITZA Peres documented in this encounter Plan of Treatment Not on file documented as of this encounter Visit Diagnoses Diagnosis Dizziness- Primary Dizziness and giddiness documented in this encounter
--- OUTSIDE RECORDS SUMMARY | 2024-04-29 22:46 | XMS_ITS | Data Portability ---
Author Organization [facility] [place] Address [address] [place] [address] Assessment Encounter Date Assessment Date Assessment LastModified by Organization Details LastModified Time 12/11/2023 12/11/2023 Annual gynecological exam performed. Patient will come back in a year unless there are new symptoms. Not available 12/11/2023 10:33:48 Plan of Treatment Reminders Order Date Submit Date Provider Last Modified By Organization Details Last Modified Time Details Appointments None recorded. Lab hbcab (hepatitis B core Ab) igm, serum [address] [facility] (Lab), [address], [place], [address], 4 12:38:35 HBsAg (hepatitis B surface Ag), serum [address] [facility] (Lab), [address], [place], [address], 4 12:38:33 hepatitis C virus Ab, serum [address] [facility] (Lab), [address] [place], [address], 4 12:38:34 HIV 1+2 AB + HIV 1 p24 Ag, qualitative immunoassay , serum [address] [facility] (Lab), [address], [place], [address], 4 12:38:33 RPR (rapid plasma reagin), serum 2023 024 STACY [facility] (Lab), [address], [place], [address], 12:38:34 Referral None recorded. Procedures None recorded. Surgeries None recorded. Imaging None recorded. Medication Orders None recorded. Patient TargetsNo targets recorded. Patient InstructionsNo instructions recorded. Reason for Referral None Reported. Results Created Date Observation Date Name Description Value Unit Range Abnormal Flag Note LastModifiedBy Organization Detail LastModifiedTime 12/11/1912/11/2023 HEPAT ITIS B SURFA CE ANTIG EN hepatitis B surface antigen Non-re active non-re active This assay was perfo rmed using [employer] n reage nts and test kits. Value s obtai alex with other assay metho ds or kits canno t be used inter ware eably . Not Available [facility] (Lab) [address], [place], [address], 12/12/2023 12:38:32 12/11/19 24 12/11/2023 HIV 1/2 ANTIG EN/AN TIBOD Y, REFLE X CONFI RMATI ON HIV antigen/anti body Nonrea ctive nonrea ctive HIV-1 antig en and HIV-1 /HIV- 2 antib odies were not detec mele. No labor atory evide nce of HIV infec tion. Not Available [facility] (Lab) [address], [place], [address], 12/12/2023 12:38:33 12/11/19 24 12/11/2023 HEPAT ITIS C ANTIB ZION SCREE N, REFLE X TO CONFI RMATI ON hepatitis C antibody Non-re active non-re active Antib odies to HCV Not Detec mele, does not exclu de the possi bilit y of expos ure to HCV. Not Available [facility] (Lab) [address], [place], [address], 12/12/2023 12:38:34 12/11/19 24 12/11/2023 RPR SCREE N, REFLE X TITER /CONF IRMAT ION RPR screen Nonrea ctive nonrea ctive Not Available [facility] (Lab) [address], [place], [address], 12/12/2023 12:38:34 12/11/19 24 12/11/2023 HEPAT ITIS B CORE, IGM hepatitis B core IgM antibody Non-re active non-re active IgM anti- HBc not detec mele. Does not exclu de the possi bilit y of expos ure to or infec tion with HBV. Not Available [facility] (Lab) [address], [place], [address], 12/12/2023 12:38:34 Result Notes None recorded. 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 Active 2014 Twin , antepartu m;Recorde d Elsewhere : No Locati on: [facility] So urce: EHR Chron ic: N Practic e ID: 0001 Bill able Time: 02:45:00 PM Not Available [facility] 0 21:45:53 Routine care Active 2014 Supervisi on of other normal ;Recorded Elsewhere : No Locati on: [facility] So urce: EHR Chron ic: N Practic e ID: 0001 Bill able Time: 01:00:00 PM Not Available [facility] 0 21:45:53 Obesity 432295497 Active 2014 Obesity;R ecorded Elsewhere : No Locati on: [facility] So urce: EHR Chron ic: N Practic e ID: 0001 Bill able Time: 01:00:00 PM Not Available [facility] 0 21:45:53 Amenorrhe a 15612829 Active 2014 Absence of menstruat ion;Recor ded Elsewhere : No Locati on: [facility] So urce: EHR Chron ic: N Practic e ID: 0001 Bill able Time: 01:00:00 PM Not Available [facility] 0 21:45:53 Syphilis test finding 253959384 Active 2016 Encntr screen for infection s w sexl mode of transmiss ;Recorded Elsewhere : No Locati on: [facility] So urce: EHR Chron ic: N Practic e ID: 0001 Bill able Time: 02:45:00 PM Not Available [facility] 0 21:45:53 Procedure on genitouri nary system Active 2017 Encounter for surgical aftercare following surgery on the genitouri nary system;Re corded Elsewhere : No Locati on: [facility] So urce: EHR Chron ic: N Practic e ID: 0001 Bill able Time: 03:30:00 PM Not Available [facility] 0 21:45:54 Postopera tive care Active 2017 Encounter for surgical aftercare following surgery on the genitouri nary system;Re corded Elsewhere : No Locati on: [facility] So urce: EHR Chron ic: N Practic e ID: 0001 Bill able Time: 03:30:00 PM Not Available [facility] 0 21:45:54 Normal in multigrav yenifer 14896271313 4106 Active 2017 Encounter for suprvsn of normal , second trimester ;Recorded Elsewhere : No Locati on: [facility] So urce: EHR Chron ic: N Practic e ID: 0001 Bill able Time: 11:00:00 AM Not Available [facility] 0 21:45:54 Post-term 11962320 Active 2017 Post-term ;Recorded Elsewhere : No Locati on: [facility] So urce: EHR Chron ic: N Practic e ID: 0001 Bill able Time: 09:30:00 AM Not Available [facility] 0 21:45:54 detection examinati on Active 2016 Encounter for test, result positive; Recorded Elsewhere : No Locati on: [facility] So urce: EHR Chron ic: N Practic e ID: 0001 Bill able Time: 03:00:00 PM Not Available [facility] 0 21:45:54 Single live 839437080 Active 2017 Single live ;Pra ctice ID: 0001 Not Available [facility] 0 21:45:54 screening Active 2017 Encounter for screening for nuchal transluce ncy;Recor ded Elsewhere : No Locati on: [facility] So urce: EHR Chron ic: N Practic e ID: 0001 Bill able Time: 01:30:00 PM Not Available [facility] 0 21:45:54 -induced hypertens ion Active 2017 Gestation al htn w/o significa nt proteinur ia, third trimester ;Recorded Elsewhere : No Locati on: [facility] So urce: EHR Chron ic: N Practic e ID: 0001 Bill able Time: 10:00:00 AM Not Available [facility] 0 21:45:54 Gestation period, 40 weeks 56366376 Active 2017 40 weeks gestation of ;Recorded Elsewhere : No Locati on: [facility] So urce: EHR Chron ic: N Practic e ID: 0001 Bill able Time: 09:30:00 AM Not Available [facility] 0 21:45:54 Specializ ed medical examinati on Active 2014 Routine gynecolog ical examinati on;Katheti ce ID: 0001 Not Available [facility] 0 21:45:55 test positive 116831095 Active 2014 Positive Test;Prac sandy ID: 0001 Not Available [facility] 0 21:45:55 Mild hyperemes is-not delivered Active 2014 Hyperemes is gravidaru m, antepartu m Mild;Prac sandy ID: 0001 Not Available [facility] 0 21:45:55 Nausea and vomiting 96460327 Active 2014 Nausea with vomiting; Practice ID: 0001 Not Available [facility] 0 21:45:[address] Concept Active 2016 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) w/o abn findings; Practice ID: 0001 Not Available [facility] 0 21:45:55 Gestation period, 8 weeks 51688180 Active 2016 8 weeks gestation of ;Practice ID: 0001 Not Available [facility] 0 21:45:55 Secondary amenorrhe a 280734095 Active 2016 Secondary amenorrhe a;Practic e ID: 0001 Not Available [facility] 0 21:45:55 screening for malformat ion Active 2017 Encounter for screening for malformat ions;Prac sandy ID: 0001 Not Available [facility] 0 21:45:56 Vomiting of 31566819 Active 2017 Late vomiting of ;Practice ID: 0001 Not Available [facility] 0 21:45:56 Gestation period, 25 weeks 13353009 Active 2017 25 weeks gestation of ;Practice ID: 0001 Not Available [facility] 0 21:45:56 , childbirt h and puerperiu m finding Active 2017 Oth related condition s, second trimester ;Practice ID: 0001 Not Available [facility] 0 21:45:56 Gestation period, 27 weeks 14124329 Active 2017 27 weeks gestation of ;Practice ID: 0001 Not Available [facility] 0 21:45:56 Non-prote inuric hypertens ion of 834474645 Active 2017 Gestatnl htn without significa nt protein, comp childbirt h;Practic e ID: 0001 Not Available [facility] 0 21:45:58 Uterine scar from previous surgery affecting 62766197 Active 2017 Matern care for low transvers e scar from prev del;Pract ice ID: 0001 Not Available [facility] 0 21:45:58 Steriliza tion procedure Active 2017 Encounter for steriliza tion;Prac sandy ID: 0001 Not Available [facility] 0 21:45:58 Infection screening Active 2016 Encounter for screening for oth infec/par astc diseases; Recorded Elsewhere : No Locati on: [facility] So urce: EHR Chron ic: N Practic e ID: 0001 Bill able Time: 02:45:00 PM Not Available [facility] 0 21:45:59 Finding of menstrual bleeding Active 2016 Menorrhag ia;Record ed Elsewhere : No Locati on: [facility] So urce: EHR Chron ic: N Practic e ID: 0001 Bill able Time: 01:15:00 PM Not Available [facility] 0 21:45:59 Finding of general energy 137071652 Active 2016 Fatigue;R ecorded Elsewhere : No Locati on: [facility] So urce: EHR Chron ic: N Practic e ID: 0001 Bill able Time: 01:15:00 PM Not Available [facility] 0 21:46:00 Screening for malignant neoplasm of cervix Active 2016 Screening for cervical ca;Record ed Elsewhere : No Locati on: [facility] So urce: EHR Chron ic: N Practic e ID: 0001 Bill able Time: 01:15:00 PM Not Available [facility] 0 21:46:01 Body mass index 30+ - obesity 962603437 Active 2016 Body mass index (BMI) 39.0-39.9 , adult;Rec orded Elsewhere : No Locati on: [facility] So urce: EHR Chron ic: N Practic e ID: 0001 Bill able Time: 02:45:00 PM Not Available [facility] 0 21:46:01 Notes:Inflammatory disorders of breast Practice ID: 0001 Problem Notes None recorded. Procedures Surgical History Date Name Laterality Status Provider Name and Address Organization Details Recorded Time 005 loop electrosurgical excision procedure completed MACIEJ Best [address], [place], [address], [facility] 12/11/2023 10:54:20 section completed Carolina Esparza [facility] 12/11/2023 10:39:44 removal of ectopic fetus completed MACIEJ Best [address], [place], [address], [facility] 12/11/2023 10:54:38 left salpingectomy completed MACIEJ Best [address], [place], [address], [facility] 12/11/2023 10:54:52 Imaging Results None recorded. Procedure Notes None recorded. Medical Equipment None Reported. Allergies No known drug allergies Medications Name Sig Start Date Stop Date Status Note LastModified by Organization Details LastModified Time cyclobenz aprine 10 mg tablet take 1 tablet by oral route 2 times every day 01/20 completed Prescrib ed Elsewher e: No Locat ion: [facility] odify By: [email or web address] srivastavaunter DateTime : 08/27/19 18 04:30:28 PM Not Available Not Available Not Available dicloxaci llin 500 mg capsule take 1 capsule by oral route every 6 hours 1 hour before a meal or 2 hours after a meal 05/30 completed Prescrib ed Elsewher e: No Locat ion: [facility] odify By: [email or web address] z Encoun ter DateTime : 07/29/19 16 02:15:00 PM Not Available Not Available Not Available azithromy logan 250 mg tablet take 2 tablet by oral route every day for 1 day then 1 tablet (250 mg) by oral route once daily for 4 days 10/14 completed Prescrib ed Elsewher e: No Locat ion: [facility] odify By: [email or web address] Encounte r DateTime : 10/11/19 18 09:30:00 AM Not Available Not Available Not Available folic acid 20 mg capsule 07/28 completed Prescrib ed Elsewher e: Yes Loca tion: [facility] odify By: amkayleigh srivastavauntmelanie DateTime : 09/23/19 15 01:00:00 PM Not Available Not Available Not Available progester one 50 mg/mL intramusc ular oil inject 0.1 millilit er by intramus cular route every day 07/28 completed Prescrib ed Elsewher e: Yes Loca tion: [facility] odify By: masha [address] ncounter DateTime : 09/23/19 15 01:00:00 PM Not Available Not Available Not Available promethaz ine 25 mg tablet take 1 tablet by oral route every 4 - 6 hours as needed 05/30 completed Prescrib ed Elsewher e: No Locat ion: [facility] odify By: brittany Hinton ter DateTime : 10/02/19 15 10:30:00 AM Not Available Not Available Not Available Vitamin D2 1,250 mcg (50,000 unit) capsule take 1 capsule by oral route every week 07/28 completed Prescrib ed Elsewher e: No Locat ion: [facility] odify By: masha Falk ncounter DateTime : 11/24/19 15 01:27:49 PM Not Available Not Available Not Available metoclopr amide 10 mg tablet take 1 tablet by oral route 4 times every day 30 minutes before meals and at bedtime 01/20 completed Prescrib ed Elsewher e: No Locat ion: [facility] odify By: masha Falk ncounter DateTime : 06/06/19 18 10:45:00 AM Not Available Not Available Not Available Diclegis 10 mg-10 mg tablet,de layed release take 1 tablet by oral route every day in the morning, 1 tablet in the mid-afte rnoon, and 2 tablets at bedtime 07/28 completed Prescrib ed Elsewher e: No Locat ion: [facility] odify By: masha Falk ncounter DateTime : 10/02/19 15 10:30:00 AM Not Available Not Available Not Available One Daily 27 mg iron-800 mcg tablet take 1 tablet by oral route every day 05/30 completed Prescrib ed Elsewher e: Yes Loca tion: [facility] odify By: brittany z Encoun ter DateTime : 09/23/19 15 01:00:00 PM Not Available Not Available Not Available 28 mg-800 mcg tablet 12/10 completed Prescrib ed Dustinher e: Yes Loca tion: [facility] M odvelia By: masha thomas DateTime : 01/21/20 18 01:00:00 PM Not Available Not Available Not Available Vitals Date Recorded Body weight Body mass index (BMI) Body height Systolic blood pressure Diastolic blood pressure Provider Name and Address Organization Details Last Updated DateTime 12/11/2023 25547.07 g 33.4 kg/m2 165.1 cm 124 mm[Hg] 78 mm[Hg] Savanah Esparza [facility] 10:34:56 Social History Question Answer Notes LastModified by Organizat ion Details LastModified Time Tobacco Smoking Status Never Smoker Savanah Esparza [facility], [facility] 12/11/2023 10:39:07 What Is Your Level Of Alcohol Consumption? None [facility] Information not available 12/11/2023 In The 14 Days Before Symptom Onset, Have You Had Close Contact With A Laboratory-confirm ed COVID-19 While That Case Was Ill? No [email or web address] Information n ot available 12/11/2023 In The 14 Days Before Symptom Onset, Have You Had Close Contact With A Person Who Is Under Investigation For COVID-19 While That Person Was Ill? No Information not available 12/11/2023 Have You Been To An Area Known To Be High Risk For COVID-19? No [facility] Information not available 12/11/2023 Sex: Unknown Functional Status None recorded. Mental Status None recorded. Family History Nothing Reported Notes:Father: Diabetes tannai tus Maternal aunt: Infertility Maternal grandmother: Cancer, breast Paternal grandfather: Diabetes mellitus Medical History Condition Response History of abnormal pap Y Anemia Y Polycystic ovary syndrome Y Infertility Y Gynecological History Statement/Question Response Abnormal Pap N Date of Last Mammogram Date of LMP 12/01/2023 On BCP's at Conception? N Was last menstrual period normal Y STIs/STDs N HPV Vaccine Y Colposcopy Current Control Method Age at First Child 28 Are cycles usually normal Y Date of Last Colonoscopy Sexually Active? Y Menses Monthly Y Date of DEXA bone scan Age of first menstrual cycle 12 Date of Last Pap Smear Sexual Problems? Y LMP Approximate Obstetrics History GPAL:G 3 P 0 0 1 4 Type Value Multiple Births 1 Living 4 Ectopics 1 Total 3 Past Encounters Encounter ID Performer Location Encounter Start Date Encounter Closed Date Diagnosis/Indication Diagnosis SNOMED-CT Code Diagnosis ICD10 Code [id number] MACIEJ Best [place] [address] [address] 12/11/2023 10:17:24 12/11/2023 11:08:31 Gynecologic examination 09493335 Z01.419 Z11.51 Venereal d isease screening 811889578 Z11.3 Sexually t ransmitted infectious disease 0437146 A64 Health Concerns Section Related Observation LastModified by Organization Detai ls LastModified Time None Recorded Concern Status LastModified by Organization Details LastModified Time None Recorded Advance Directives Directive None Recorded Payers Encounter Date Sequence Insurance Name Policy Number Policy Helton Covered Member ID Helton Member ID Guarantor Name 12/11/2023 1 [facility] [id number] Michael Ortiz [id number] Oanh Ortiz Notes Date Note Type Note Provider Name and Address Organization Details Recorded Time 12/11/2023 text/html Annual GYNReport ed bypatient.Menstrua l cycle:Normal menses Urinary symptoms:No hematuria; No incontinence Vulva:No genital lesion Vagina:Normal vaginal discharge Breast:No breast pain; No breast lump; No nipple discharge Sexual complaints:No sexual complaints; No pain during intercourse; Normal libido Menopausal Symptoms:No menopausal symptoms; Normal vaginal lubrication Psychological symptoms:No depression; No anxiety; No PMDD Preventive measures:Encourage self breast examination; Encourage regular exercise; Encourage no tobacco use; Encourage regular mammograms starting age 41Notes:38yoWWEh/o LEEP in 2005last pap 5yrs ago, normal per pt MACIEJ Best [address], [place], [address], [facility] 12/11/2023 11:05:55 OBGyn Episode Ob Episode Information Episode Created Date Number of Fetuses Patient Bloodtype Patient rh Status Prepregnancy Weight lbs Domestic Partner Domestic Partner Phone Father Name Medical Dosimetrist Status 12/11/19 24 1 CLOSED Fetus Data First Name Last Name Admitted to NICU Weight (g) Sex Living Outcome Pediatric Complications Fetus ID Race Codes Race Delivery Type M Full Term [id number] Vaginal Delivery Baltazar Calculation BALTAZAR Calculation Method Initial Baltazar Date Initial Exam Date Initial Exam Provider Initial Ultrasound Date Last Menstrual Period Date Ultra Sound Weeks Gestation Conception by IVF Embryo Age at Transfer Date of Transfer 0 Eighteen To Twenty Week Baltazar Update Ultra Sound Date Fundal Height At Umbil Quickening Date Ultra Sound Latest Weeks Gestation Final Baltazar Confirmed By Final Baltazar Confirmed Date Final Baltazar Date Ultra Sound Latest Days Gestation 0 0 Menstrual History Last Menstrual Date Menses Monthly On Bcp Conception Prior Menses Frequency Hcg Plus Date Menarche Onset Age Delivery Information Delivery Date Delivery Type Labor Anesthesia Weeks Gestation Incision Type Labor Labor Length Hrs Delivered By Post Complications Tubal Sterilization Discharge Date Comments 3 Discharge Information Feeding Method Contraceptive Method Maternal HG B and HCT Levels Ob Episode Information Episode Created Date Number of Fetuses Patient Bloodtype Patient rh Status Prepregnancy Weight lbs Domestic Partner Domestic Partner Phone Father Name Medical Dosimetrist Status 12/11/19 1 CLOSED Fetus Data First Name Last Name Admitted to NICU Weight (g) Sex Living Outcome Pediatric Complications Fetus ID Race Codes Race Delivery Type [id number] Baltazar Calculation BALTAZAR Calculation Method Initial Baltazar Date Initial Exam Date Initial Exam Provider Initial Ultrasound Date Last Menstrual Period Date Ultra Sound Weeks Gestation Conception by IVF Embryo Age at Transfer Date of Transfer 0 Eighteen To Twenty Week Baltazar Update Ultra Sound Date Fundal Height At Umbil Quickening Date Ultra Sound Latest Weeks Gestation Final Baltazar Confirmed By Final Baltazar Confirmed Date Final Baltazar Date Ultra Sound Latest Days Gestation 0 0 Menstrual History Last Menstrual Date Menses Monthly On Bcp Conception Prior Menses Frequency Hcg Plus Date Menarche Onset Age Delivery Information Delivery Date Delivery Type Labor Anesthesia Weeks Gestation Incision Type Labor Labor Length Hrs Delivered By Post Complications Tubal Sterilization Discharge Date Comments 0 Discharge Information Feeding Method Contraceptive Method Maternal HG B and HCT Levels Ob Episode Information Episode Created Date Number of Fetuses Patient Bloodtype Patient rh Status Prepregnancy Weight lbs Domestic Partner Domestic Partner Phone Father Name Medical Dosimetrist Status 12/11/19 24 1 DELETED Baltazar Calculation BALTAZAR Calculation Method Initial Baltazar Date Initial Exam Date Initial Exam Provider Initial Ultrasound Date Last Menstrual Period Date Ultra Sound Weeks Gestation Conception by IVF Embryo Age at Transfer Date of Transfer 0 Eighteen To Twenty Week Baltazar Update Ultra Sound Date Fundal Height At Umbil Quickening Date Ultra Sound Latest Weeks Gestation Final Baltazar Confirmed By Final Baltazar Confirmed Date Final Baltazar Date Ultra Sound Latest Days Gestation 0 0 Menstrual History Last Menstrual Date Menses Monthly On Bcp Conception Prior Menses Frequency Hcg Plus Date Menarche Onset Age Delivery Information Delivery Date Delivery Type Labor Anesthesia Weeks Gestation Incision Type Labor Labor Length Hrs Delivered By Post Complications Tubal Sterilization Discharge Date Comments 5 Discharge Information Feeding Method Contraceptive Method Maternal HG B and HCT Levels Ob Episode Information Episode Created Date Number of Fetuses Patient Bloodtype Patient rh Status Prepregnancy Weight lbs Domestic Partner Domestic Partner Phone Father Name Medical Dosimetrist Status 12/11/19 24 2 CLOSED Fetus Data First Name Last Name Admitted to NICU Weight (g) Sex Living Outcome Pediatric Complications Fetus ID Race Codes Race Delivery Type [id number] F Full Term [id number] Primary Baltazar Calculation BALTAZAR Calculation Method Initial Baltazar Date Initial Exam Date Initial Exam Provider Initial Ultrasound Date Last Menstrual Period Date Ultra Sound Weeks Gestation Conception by IVF Embryo Age at Transfer Date of Transfer 0 Eighteen To Twenty Week Baltazar Update Ultra Sound Date Fundal Height At Umbil Quickening Date Ultra Sound Latest Weeks Gestation Final Baltazar Confirmed By Final Baltazar Confirmed Date Final Baltazar Date Ultra Sound Latest Days Gestation 0 0 Menstrual History Last Menstrual Date Menses Monthly On Bcp Conception Prior Menses Frequency Hcg Plus Date Menarche Onset Age Delivery Information Delivery Date Delivery Type Labor Anesthesia Weeks Gestation Incision Type Labor Labor Length Hrs Delivered By Post Complications Tubal Sterilization Discharge Date Comments 5 Discharge Information Feeding Method Contraceptive Method Maternal HG B and HCT Levels Ob Episode Information Episode Created Date Number of Fetuses Patient Bloodtype Patient rh Status Prepregnancy Weight lbs Domestic Partner Domestic Partner Phone Father Name Medical Dosimetrist Status 12/11/19 24 1 CLOSED Fetus Data First Name Last Name Admitted to NICU Weight (g) Sex Living Outcome Pediatric Complications Fetus ID Race Codes Race Delivery Type F Full Term [id number] Repeat Baltazar Calculation BALTAZAR Calculation Method Initial Baltazar Date Initial Exam Date Initial Exam Provider Initial Ultrasound Date Last Menstrual Period Date Ultra Sound Weeks Gestation Conception by IVF Embryo Age at Transfer Date of Transfer 0 Eighteen To Twenty Week Baltazar Update Ultra Sound Date Fundal Height At Umbil Quickening Date Ultra Sound Latest Weeks Gestation Final Baltazar Confirmed By Final Baltazar Confirmed Date Final Baltazar Date Ultra Sound Latest Days Gestation 0 0 Menstrual History Last Menstrual Date Menses Monthly On Bcp Conception Prior Menses Frequency Hcg Plus Date Menarche Onset Age Delivery Information Delivery Date Delivery Type Labor Anesthesia Weeks Gestation Incision Type Labor Labor Length Hrs Delivered By Post Complications Tubal Sterilization Discharge Date Comments 8 Discharge Information Feeding Method Contraceptive Method Maternal HG B and HCT Levels
--- OUTSIDE RECORDS SUMMARY | 2024-04-29 22:47 | XMS_ITS | Encounter Summary ---
Author Organization [facility] Address [address] [place] [address] Care Team Providers Care Building Code Inspector Name Role Phone Unavailable Primary Care Provider Unavailabl e Reason for Visit * Reason Onset Date Comments Question 07/07/2012 Encounter Details Date Type Department Care Team (Late st Contact Info) Description 07/07/2012 Telephone [facility] Emergency Department [address] [facility] [address] [address] Elena Mcneil MD NO ADDRESS ON FILE Question Social History Tobacco Use Types Packs/Day Years [...] on file documented as of this encounter Miscellaneous Notes * Telephone Encounter - Pat Chung - 07/07/2012 1:21 PM CDT PT. IS 33 WEEKS AND HAS ABD. SENSITIVITY AND INCREASED ?? TABATHA DEIDRE. HAS INCREASED VAG. DISCHARGE. SHE WAS REASSURED. AND IS O.K. documented in this encounter Plan of Treatment Not on file documented as of this encounter Visit Diagnoses Not on filedocumented in this encounter
--- OUTSIDE RECORDS SUMMARY | 2024-04-29 22:47 | XMS_ITS | Encounter Summary ---
Author Organization [facility] Address [address] [place] [address] Care Team Providers Care Pleating Machine Operator Name Role Phone Unavailable Primary Care Provider Unavailabl e Reason for Visit * Auth/Cert - Closed Specialty Diagnoses / Procedures Referred By Renee plasencia Referred To Contact Obstetrics Diagnoses cramping [facility] Ob Triage [address] [place] [address] Referral ID Status Reason Start Date Expiration Date Visits Re quested Visits Authorized [id number] Closed 06/16/2012 07/17/2013 1 Encounter Details Date Type Department Care Team (Latest Contact Info) Description 06/13/2012 6:17 PM POSTAL SUPERINTENDENT - 06/13/2012 8:43 PM POSTAL SUPERINTENDENT Hospital Encounter [facility] OB Triage [address] [place] [address] Elena Mcneil MD NO ADDRESS [...] Sign Reading Time Taken Comments Blood Pressure 116/78 06/13/2012 8:29 PM POSTAL SUPERINTENDENT Pulse - - Temperature 36.6 ??C (97.9 ??F) 06/13/2012 6:46 PM CS T Respiratory Rate 18 06/13/2012 6:46 PM POSTAL SUPERINTENDENT Oxygen Saturation - - Inhaled Oxygen Concentration - - Weight 101.6 kg (224 lb) 06/13/2012 6:46 PM POSTAL SUPERINTENDENT Height 167.6 cm (5' 6 ) 06/13/2012 6:46 PM POSTAL SUPERINTENDENT Body Mass Index 36.15 06/13/2012 6:46 PM POSTAL SUPERINTENDENT documented in this encounter Discharge Instructions * Discharge Instructions* Tressa Zamarripa RN - 06/13/2012 8:32 PM POSTAL SUPERINTENDENT Prescriptions: Prescriptions given? No Return to Labor and Delivery or notify your physician regarding: Contractions: If you have more than 6 contractions in one hour, drink plenty of fluids and rest on side. If you have more than 6 contractions in the following hour, call physician exchange for further instructions. Vaginal Bleeding: A small amount of spotting after sexual intercourse or vaginal examination is considered normal. Bloody show is a pink-tinged or blood-streaked mucousy discharge that occurs near the onset of labor. If bleeding is heavy enough to require you to wear a pad, saturates your underpants or is accompanied by abdominal pain or cramping, notify your doctor or come to Labor and Delivery. Rupture of Membranes (Bag of Water): You may notice a large gush or continuous leaking of fluid from the vagina. The fluid will normallybe clear and white flecks may be seen. Sometimes the fluid may be greenish or brownish in color. Ifyou think your water has broken, notify your doctor or come to Labor and Delivery. Decreased Movement: If you think your baby is less active than usual, drink a glass of juice and lie down on your side.Count the number of kicks that you feel during a one-hour period. If your baby is still less activethan usual, notify your doctor or come to Labor and Delivery. General: If you experience any of the following signs/symptoms, notify your physician or come to Labor and Delivery: Headache, blurred vision, severe indigestion, abdominal pain, or increased swelling of face, hands, or feet. Additional Instructions: Keep scheduled appointment. If you develop a fever or pain worsens, return for evaluation. Activity: Your activity level is no restrictions and no smoking. If you smoke you are advised to quit. Ask your health care provider for advice if you need assistance to stop smoking. Avoid second-hand smoke exposure and do not let people smoke in your home. Diet: Your diet is regular AL SUPERINTENDENT documented in this encounter Medications at Time of Discharge Medication Sig Dispensed Refills Start Date End Date potassium chloride (KLOR-CON,K-TAB) 10 mEq Oral TbSR Take 1 Tab by mouth 2 times daily with meals for 5 days. 10 Tab 0 07/21/2012 07/26/2012 iron bisgly & ps-FA-B&C#12-suc (IROSPAN 20/10) 65 mg-65 mg -1,000 mcg (24) Oral Tab Take 1 Tab by mouth daily. 90 Tab 1 05/12/2012 01/20/2020 VIT #108/IRON/FA ( ONE ORAL) Take by mouth. 2019 documented as of this encounter Progress Notes * Tressa Zamarripa RN - 06/13/2012 8:[address] Fry updated by Deepak WING. Orders received to discharge home to follow up as scheduled. labor, bleeding precautions given. Pt to return if fever develops or pain worsens. Home undelivered to follow up as scheduled. AL SUPERINTENDENT * Tressa Zamarripa RN - 06/13/2012 6:57 PM CST Deepak WING given report. AL SUPERINTENDENT * Tressa Zamarripa RN - 06/13/2012 6:48 PM CST Presents to OB Triage for cramping and back pain/pressure since yesterday morning, pressure worse today. N/V today, vomited twice today and once yesterday. Denies VB, LOF. Baby is active per patient.Monitors applied. Pt denies UTI symptoms. Reports increased discharge the last week. AL SUPERINTENDENT documented in this encounter H&P Notes * Christine Juarez NP - 06/13/2012 7:01 PM CST OB H&P Chief Complaint:HPI: Oanh Ortiz is a 27 y.o. female 29w3d weeks gestation with LMP of 11/22/2011 who presents to the [facility] from home for the evaluation of back pain and n/v. Patient reports vomited 2 x yesterday and 1x today. Has felt tightening and back pain approx 2 x /hr for a few seconds most of today. Rates pain at 4 on a scale of 1 to 10. Patient reports no bleeding, no leaking, normal movem ent. Her primary open hearth furnace laborer is Elena Mcneil MD. Current Problem List: 1. N/V/cramping 2. Denies other preg complications OB History Grav Para Term Abortions TAB SAB Ect Mult Living 2 1 1 # Outc Date GA Lbr Ray/2nd Wgt Sex Del Anes PTL Lv 1 ECT 2010 2 CUR Past Medical History Diagnosis Date ??? PCOS (polycystic ovarian syndrome) ??? Abnormal Pap smear and cervical HPV (human papillomavirus) ??? Infertility associated with anovulation ??? Pap smear, abnormal ??? Unspecified deficiency anemia ??? Bipolar 1 disorder ??? Female infertility of unspecified origin IVF Past Surgical History Procedure Date ??? Hx salpingectomy 2010 left for ectopic ??? Hx leep procedure 2005 History Social History ??? Marital Status: Spouse Name: N/A Number of Children: N/A ??? Years of Education: N/A Occupational History ??? Other Social History Main Topics ??? Smoking status: [...] ? ? iron bisgly & ps-FA-B&C#12-suc (IROSPAN /) 65 mg-65 mg -1,000 mcg (24) Oral Tab Take1 Tab by mouth daily. 90 Tab 1 ??? VIT #108/IRON/FA ( ONE ORAL) Take by mouth. No Known Allergies The above has been reviewed with the patient & documented in the electronic record. Review of Systems No fever, SOB, dysuria or GI symptoms Exam: Filed Vitals: 06/13/12 1842 06/13/12 1846 06/13/122028 BP: 131/67 116/78 Temp: 97.9 ??F (36.6 ??C) TempSrc: Oral Resp: 18 Height: 5' 6 (1.676 m) Weight: 224 lb (101.606 kg) Constitutional: alert, no distress Lungs: clear to auscultation bilaterally Heart: regular rate & rhythm, no murmur Abdomen: soft, gravid, no fundal tenderness. Musculoskeletal: No clubbing, cyanosis, or edema. FHT: 130's. Mod variability with accels, no decels TOCO: UC's No ctx noted Cervix: Dilation: closed Effacement: thick Station: Lab Review Labs: Results for orders placed during the hospital encounter of 06/13/12 (from the past 24 hour(s)) URINALYSIS WITH REFLEX CULTURE Component Value Range URINE CULTURE ORDER Not indicated URINALYSIS Component Value Range COLOR UA Pale Yellow CLARITY UA Slt. Cloudy (*) Clear SPECIFIC GRAVITY UA 1.011 1.001 - 1.035 PH UA 6.5 5.0 - 8.0 LEUKOCYTE ESTERASE UA Negative Negative NITRITE UA Negative Negative PROTEIN UA Negative Negative GLUCOSE UA Negative Negative KETONES UA Negative Negative UROBILINOGEN UA <1 <=1 mg/dL BILIRUBIN UA Negative Negative BLOOD UA Negative Negative WBC UA 1 0 - 5 /HPF RBC UA 1 0 - 4 /HPF BACTERIA UA 1+ (*) None Seen /HPF EPITHELIAL CELLS, URINE 0-2 CBC WITH DIFFERENTIAL Component Value Range WBC 13.8 (*) 4.0 - 9.8 K/uL RBC 3.99 3.90 - 4.90 M/uL HEMOGLOBIN 11.4 (*) 11.8 - 14.8 g/dL HEMATOCRIT 34.3 (*) 35.5 - 44.0 % MCV 86.0 82.0 - 99.0 fL MCH 28.6 27.2 - 32.6 pg MCHC 33.2 31.5 - 35.5 % PLATELETS 194 140 - 350 K/uL MPV 12.2 9.3 - 12.4 fL RDW 13.6 11.5 - 14.5 % RDW-STDEV 42.3 37.1 - 48.7 fL NEUTROPHILS 78 (*) 45 - 70 % LYMPHOCYTES 15 (*) 16 - 45 % MONOCYTES 6 3 - 13 % EOSINOPHILS 0 0 - 7 % BASOPHILS 0 0 - 2 % NEUTROPHIL ABSOLUTE 10.84 (*) 1.90 - 7.00 K/uL LYMPHOCYTE ABSOLUTE 2.08 0.70 - 4.50 K/uL MONOCYTE ABSOLUTE 0.84 0.10 - 1.30 K/uL EOSINOPHIL ABSOLUTE 0.05 0.00 - 0.70 K/uL BASOPHILS ABSOLUTE 0.02 0.00 - 0.20 K/uL Assessment: 1. 29w3d weeks gestation 2. Nausea/vomiting -Vomited 1x today. No vomiting here. 3. Status is reassuring for gestational age 4. No ctx noted. Cervix is closed Plan: Observe in [facility] Orders Placed This Encounter ??? Urinalysis With Reflex Culture ??? URINALYSIS ??? CBC WITH DIFFERENTIAL ??? Vital Signs per Protocol ??? Notify Physician - Blood Pressure Changes ??? Education, Smoking Cessation and Second Hand Smoke Avoidance ??? Electronic Monitoring ??? Nonstress Test Discharge: Notified the attending teletypesetter monitor Dr. Fry at 2028. May discharge to home with reassurance. F/U in office as scheduled or sooner with concerns. AL SUPERINTENDENT documented in this encounter Miscellaneous Notes * Assessment & Plan Note - Scanning, Stl - 06/18/2012 1:51 PM CST Electronically signed by [facility] Credit Collector Incoming at 06/18/2012 1:51 PM POSTAL SUPERINTENDENT * Patient Instructions - Scanning, Stl - 06/18/2012 1:51 PM CST Electronically signed by [facility] Credit Collector Incoming at 06/18/2012 1:51 PM POSTAL SUPERINTENDENT documented in this encounter Plan of Treatment Not on file documented as of this encounter Procedures Procedure Name Priority Date/Time Associated Diagnosis Comments CBC WITH DIFFERENTIAL Stat 06/13/2012 7:25 PM POSTAL SUPERINTENDENT URINALYSIS WITH REFLEX CULTURE Stat 06/13/2012 6:27 PM POSTAL SUPERINTENDENT URINALYSIS W/REFLEX MICROSCOPIC Stat 06/13/2012 6:27 PM POSTAL SUPERINTENDENT NONSTRESS TEST Routine 06/13/2012 6:26 PM POSTAL SUPERINTENDENT documented in this encounter Results * (ABNORMAL) CBC WITH DIFFERENTIAL (06/13/2012 7:25 PM POSTAL SUPERINTENDENT) WBC 13.8(H) 4.0 - 9.8 K/uL [facility] RBC 3.99 3.90 - 4.90 M/uL [facility] HEMOGLOBIN 11.4(L) 11.8 - 14.8 g/dL [facility] HEMATOCRIT 34.3(L) 35.5 - 44.0 % [facility] MCV 86.0 82.0 - 99.0 fL [facility] MCH 28.6 27.2 - 32.6 pg [facility] MCHC 33.2 31.5 - 35.5 % [facility] PLATELETS 194 140 - 350 K/uL [facility] MPV 12.2 9.3 - 12.4 fL [facility] RDW 13.6 11.5 - 14.5 % [facility] RDW-STDEV 42.3 37.1 - 48.7 fL [facility] NEUTROPHILS 78(H) 45 - 70 % [facility] LYMPHOCYTES 15(L) 16 - 45 % [facility] MONOCYTES 6 3 - 13 % [facility] EOSINOPHILS 0 0 - 7 % [facility] BASOPHILS 0 0 - 2 % [facility] NEUTROPHIL ABSOLUTE 10.84(H) 1.90 - 7.00 K/uL [facility] LYMPHOCYTE ABSOLUTE 2.08 0.70 - 4.50 K/uL [facility] MONOCYTE ABSOLUTE 0.84 0.10 - 1.30 K/uL [facility] EOSINOPHIL ABSOLUTE 0.05 0.00 - 0.70 K/uL [facility] BASOPHILS ABSOLUTE 0.02 0.00 - 0.20 K/uL [facility] Blood specimen (specimen) 06/13/2012 7:25 PM POSTAL SUPERINTENDENT 06/13/2012 7:25 PM POSTAL SUPERINTENDENT Christine Juarez NP HEMATOLOGY ORDERAB LES [facility] CLIA# [id number] [address] [place] [address] * (ABNORMAL) URINALYSIS (06/13/2012 6:27 PM POSTAL SUPERINTENDENT) COLOR UA Pale Yellow [facility] CLARITY UA Slt. Cloudy(A) Clear [facility] SPECIFIC GRAVITY UA 1.011 1.001 - 1.035 [facility] PH UA 6.5 5.0 - 8.0 [facility] LEUKOCYTE ESTERASE UA Negative Negative [facility] NITRITE UA Negative Negative [facility] PROTEIN UA Negative Negative [facility] GLUCOSE UA Negative Negative [facility] KETONES UA Negative Negative [facility] UROBILINOGEN UA <1 <=1 mg/dL [facility] BILIRUBIN UA Negative Negative [facility] BLOOD UA Negative Negative [facility] WBC UA 1 0 - 5 /HPF [facility] RBC UA 1 0 - 4 /HPF [facility] BACTERIA UA 1+(A) None Seen /HPF [facility] EPITHELIAL CELLS, URINE 0-2 /HPF [facility] 06/13/2012 6:27 PM POSTAL SUPERINTENDENT 06/13/2012 6:39 PM POSTAL SUPERINTENDENT Comment:URINE VOIDED Chritsine Juarez NP URINE ORDERABLES Performing Organization Address [facility] de Phone Number [facility]# [id number] [address] [place] [address] * URINALYSIS WITH REFLEX CULTURE (06/13/2012 6:27 PM POSTAL SUPERINTENDENT) URINE CULTURE ORDER Not indicated [facility] Comment: Criteria for a reflex culture include one or more of the following: ??Abnormal nitrite, leukocyte esterase, WBCs or RBCs. ??Lack of qualifying criteria does not exclude the possiblity of a urinary tract infection. ??Dilute urine, drug interference, etc. may decrease the sensitivity of the criteria analytes. Urine, clean catch 06/13/2012 6:27 PM POSTAL SUPERINTENDENT 06/13/2012 6:39 PM POSTAL SUPERINTENDENT Comment:URINE VOIDED Christine Juarez NP URINE ORDERABLES Performing Organization Address [facility] Co de Phone Number [facility]# [id number] [address] [place] [address] documented in this encounter Visit Diagnoses Diagnosis Abd cramping 29.3w, Abdominal pain, unspecified site documented in this encounter
--- OUTSIDE RECORDS SUMMARY | 2024-04-29 22:47 | XMS_ITS | Encounter Summary ---
Author Organization [facility] Address [address] [place] [address] Care Team Providers Care Regional Liaison Name Role Phone Unavailable Primary Care Provider Unavailabl e Reason for Visit * Reason Comments Routine Visit Encounter Details Date Type Department Care Team (Latest Contact Info) Description 05/08/2012 1:15 PM HEALTH OUTREACH WORKER visit [facility] [address] [address] Elena Mcneil MD NO ADDRESS ON FILE Supervision of other normal (Primary Dx) Social History Tobacco Use Types [...] Sign Reading Time Taken Comments Blood Pressure 132/70 05/08/2012 1:23 PM HEALTH OUTREACH WORKER Pulse - - Temperature - - Respiratory Rate - - Oxygen Saturation - - Inhaled Oxygen Concentration - - Weight 101.7 kg (224 lb 3.2 oz) 05/08/2012 1:23 PM HEALTH OUTREACH WORKER Height - - Body Mass Index 36.74 03/12/2012 2:45 PM HEALTH OUTREACH WORKER documented in this encounter Progress Notes * Elena Mcneil MD - 05/08/2012 1:30 PM CST GCT CBC today A+ TH OUTREACH WORKER documented in this encounter Plan of Treatment Not on file documented as of this encounter Results * (ABNORMAL) CBC WITH DIFFERENTIAL (05/08/2012 4:21 PM HEALTH OUTREACH WORKER) WBC 9.2 4.0 - 9.8 K/uL [facility] RBC 3.77(L) 3.90 - 4.90 M/uL [facility] HEMOGLOBIN 10.7(L) 11.8 - 14.8 g/dL [facility] HEMATOCRIT 33.0(L) 35.5 - 44.0 % [facility] MCV 87.5 82.0 - 99.0 fL [facility] MCH 28.4 27.2 - 32.6 pg [facility] MCHC 32.4 31.5 - 35.5 % [facility] PLATELETS 214 140 - 350 K/uL [facility] MPV 12.4 9.3 - 12.4 fL [facility] RDW 14.4 11.5 - 14.5 % [facility] RDW-STDEV 45.8 37.1 - 48.7 fL [facility] NEUTROPHILS 78(H) 45 - 70 % [facility] LYMPHOCYTES 16 16 - 45 % [facility] MONOCYTES 6 3 - 13 % [facility] EOSINOPHILS 0 0 - 7 % [facility] BASOPHILS 0 0 - 2 % [facility] NEUTROPHIL ABSOLUTE 7.16(H) 1.90 - 7.00 K/uL [facility] LYMPHOCYTE ABSOLUTE 1.43 0.70 - 4.50 K/uL [facility] MONOCYTE ABSOLUTE 0.53 0.10 - 1.30 K/uL [facility] EOSINOPHIL ABSOLUTE 0.03 0.00 - 0.70 K/uL [facility] BASOPHILS ABSOLUTE 0.01 0.00 - 0.20 K/uL [facility] Blood specimen (specimen) 05/08/2012 4:21 PM HEALTH OUTREACH WORKER 05/08/2012 4:35 PM HEALTH OUTREACH WORKER Elena Mcneil MD HEMATOLOGY ORDERABLE S [facility]# [id number] [address] [place] [address] * GLUCOSE TOLERANCE 1 HR GESTATIONAL (05/08/2012 4:21 PM HEALTH OUTREACH WORKER) GLUCOSE 1 HR OBSTETRIC 93 65 - 139 mg/dL [facility] Blood specimen (specimen) 05/08/2012 4:21 PM HEALTH OUTREACH WORKER 05/08/2012 4:35 PM HEALTH OUTREACH WORKER Comment:BLOOD Elena Mcneil MD CHEMISTRY ORDERABLES Performing Organization Address [facility] Co de Phone Number [facility]# [id number] [address] [address] documented in this encounter Visit Diagnoses Diagnosis Supervision of other normal - Primary Supervision of other normal documented in this encounter
--- OUTSIDE RECORDS SUMMARY | 2024-04-29 22:47 | XMS_ITS | Encounter Summary ---
Author Organization [facility] Address [address] [place] [address] Care Team Providers Care Wrist Liner Name Role Phone Unavailable Primary Care Provider Unavailabl e Reason for Visit * Reason Comments Routine Visit Encounter Details Date Type Department Care Team (Latest Contact Info) Description 08/06/2012 1:30 PM CDT visit [facility] [address] [address] Elena Mcneil MD NO ADDRESS [...] Sign Reading Time Taken Comments Blood Pressure 136/76 08/06/2012 1:47 PM CDT Pulse - - Temperature - - Respiratory Rate - - Oxygen Saturation - - Inhaled Oxygen Concentration - - Weight 107.6 kg (237 lb 3.2 oz) 08/06/2012 1:47 PM CDT Height - - Body Mass Index 38.29 07/21/2012 11:07 AM CDT documented in this encounter Progress Notes * Elena Mcneil MD - 08/06/2012 1:58 PM CDT GBS negative; documented in this encounter Plan of Treatment Not on file documented as of this encounter Visit Diagnoses Diagnosis Supervision of other normal - Primary documented in this encounter
--- OUTSIDE RECORDS SUMMARY | 2024-04-29 22:47 | XMS_ITS | Encounter Summary ---
Author Organization [facility] Address [address] [place] [address] Care Team Providers Care Scraper Meat Name Role Phone Unavailable Primary Care Provider Unavailabl e Reason for Visit * Reason Comments Routine Visit Encounter Details Date Type Department Care Team (Latest Contact Info) Description 04/10/2012 12:00 PM PEPPER CUTTER Initial [facility] [address] [facility] [address] [address] Elena Mcneil MD NO ADDRESS [...] Sign Reading Time Taken Comments Blood Pressure 130/68 04/10/2012 12:29 PM PEPPER CUTTER Pulse - - Temperature - - Respiratory Rate - - Oxygen Saturation - - Inhaled Oxygen Concentration - - Weight 98.6 kg (217 lb 6.4 oz) 04/10/2012 12:29 PM PEPPER CUTTER Height - - Body Mass Index 35.63 03/12/2012 2:45 PM PEPPER CUTTER documented in this encounter Progress Notes * Elena Mcneil MD - 05/14/2012 1:05 PM CST 2 embryos transferred; on Progesterone until 10 weeks. Inherigen no. Got flu shot. US c/w dates. GCT CBC next time, A+ ER CUTTER documented in this encounter Plan of Treatment Not on file documented as of this encounter Visit Diagnoses Diagnosis Supervision of other normal - Primary documented in this encounter
--- OUTSIDE RECORDS SUMMARY | 2024-04-29 22:47 | XMS_ITS | Encounter Summary ---
Author Organization [facility] Address [address] [place] [address] Care Team Providers Care Shoe Sticks Repairer Name Role Phone Unavailable Primary Care Provider Unavailabl e Reason for Visit * Reason Comments Routine Visit Encounter Details Date Type Department Care Team (Latest Contact Info) Description 06/05/2012 1:30 PM HOUSE SERVANT visit [facility] [address] [address] Elena Mcneil MD NO ADDRESS [...] Sign Reading Time Taken Comments Blood Pressure 130/76 06/05/2012 1:52 PM HOUSE SERVANT Pulse - - Temperature - - Respiratory Rate - - Oxygen Saturation - - Inhaled Oxygen Concentration - - Weight 101.2 kg (223 lb) 06/05/2012 1:52 PM HOUSE SERVANT Height - - Body Mass Index 36.54 03/12/2012 2:45 PM HOUSE SERVANT documented in this encounter Progress Notes * Elena Mcneil MD - 06/05/2012 1:57 PM CST GCT 93 H/H on iron supplement; BH ctx E SERVANT documented in this encounter Plan of Treatment Not on file documented as of this encounter Visit Diagnoses Diagnosis Supervision of other normal - Primary documented in this encounter
--- OUTSIDE RECORDS SUMMARY | 2024-04-29 22:47 | XMS_ITS | Encounter Summary ---
Author Organization [facility] Address [address] [place] [address] Care Team Providers Care Director Of Radio Services Name Role Phone Unavailable Primary Care Provider Unavailabl e Reason for Visit * Reason Comments Routine Visit Encounter Details Date Type Department Care Team (Latest Contact Info) Description 07/09/2012 1:00 PM CDT visit [facility] [address] [address] Elena Mcneil MD NO ADDRESS [...] Sign Reading Time Taken Comments Blood Pressure 120/64 07/09/2012 1:14 PM CDT Pulse - - Temperature - - Respiratory Rate - - Oxygen Saturation - - Inhaled Oxygen Concentration - - Weight 104.5 kg (230 lb 6.4 oz) 07/09/2012 1:14 PM CDT Height - - Body Mass Index 37.19 06/13/2012 6:46 PM LINE SUPERVISOR documented in this encounter Progress Notes * Elena Mcneil MD - 07/09/2012 1:36 PM CDT BH 4-5 /hr this weekend. No LOF ; US next time, GBS next time documented in this encounter Plan of Treatment Not on file documented as of this encounter Visit Diagnoses Diagnosis Supervision of other normal - Primary documented in this encounter
--- OUTSIDE RECORDS SUMMARY | 2024-04-29 22:47 | XMS_ITS | Encounter Summary ---
Author Organization [facility] Address [address] [place] [address] Care Team Providers Care Estimating Engineer Name Role Phone Unavailable Primary Care Provider Unavailabl e Reason for Visit * Reason Onset Date Comments Breast pain 07/21/2012 since Encounter Details Date Type Department Care Team (Late st Contact Info) Description 07/21/2012 Telephone [facility] Minimally Invasive Gynecology [address] [place] [address] Elena Mcneil MD NO ADDRESS ON FILE Breast pain (since ) Social History Tobacco Use Types Packs/Day Years [...] encounter Miscellaneous Notes * Telephone Encounter - Radha Pagan - 07/21/2012 9:40 AM CDT C/C breast and nipple pain still present, Bilateral, Tender to the touch; Finishing a round of Cephalexin and Nystatin; 50% improved; Afebrile; Pumping 10ml every 3 hours, PP delivered 06-26-2012; P/A will speak with Dr. Mcneil and Call back documented in this encounter Plan of Treatment Not on file documented as of this encounter Visit Diagnoses Not on filedocumented in this encounter
--- OUTSIDE RECORDS SUMMARY | 2024-04-29 22:47 | XMS_ITS | Encounter Summary ---
Author Organization [facility] Address [address] [place] [address] Care Team Providers Care Mall Manager Name Role Phone Unavailable Primary Care Provider Unavailabl e Encounter Details Date Type Department Care Team (Latest Contact Info) Description 07/24/2012 7:25 PM CDT - 07/24/2012 11:59 PM CDT Hospital Encounter [facility] Laboratory Support Services S [facility] [address] [place] [address] [place] [address] Elena Mcneil MD NO ADDRESS ON FILE [...] mouth. 2019 documented as of this encounter Plan of Treatment Not on file documented as of this encounter Procedures Procedure Name Priority Date/Time Associated Diagnosis Comments (BROTH-ENRICHED) GROUP B STREP DETECTION Routine 07/24/2012 7:25 PM CDT Supervision of other normal documented in this encounter Results * STREPTOCOCCUS GROUP B CULTURE (07/24/2012 7:25 PM CDT) FINAL MICRO REPORT No Streptococcus Group B isolated. [facility] [employer] [facility] Specimen of unknown material (specimen) (Vaginal/rectal) 07/24/2012 7:25 PM CDT 07/24/2012 7:48 PM CDT Comment:VAG-RECTAL Elena Mcneil MD MICROBIOLOGY - GENER AL ORDERABLES [facility]# [id number] [address] [address] documented in this encounter Visit Diagnoses Diagnosis Supervision of other normal documented in this encounter
--- OUTSIDE RECORDS SUMMARY | 2024-04-29 22:47 | XMS_ITS | Encounter Summary ---
Author Organization [facility] Address [address] [place] [address] Care Team Providers Care Indirect Fire Infantryman Name Role Phone Unavailable Primary Care Provider Unavailabl e Encounter Details Date Type Department Care Team (Latest Contact Info) Description 05/08/2012 4:20 PM WORKERS COMPENSATION EXAMINER - 05/08/2012 11:59 PM WORKERS COMPENSATION EXAMINER Hospital Encounter [facility] Laboratory Support Services [facility] [address] [place] [address] Elena Mcneil MD NO ADDRESS ON FILE [...] Sig Dispensed Refills Start Date End Date VIT #108/IRON/FA ( ONE ORAL) Take by mouth. 2019 documented as of this encounter Plan of Treatment Not on file documented as of this encounter Procedures Procedure Name Priority Date/Time Associated Diagnosis Comments GLUCOSE TOLERANCE 1 HR GESTATIONAL Routine 05/08/2012 4:21 PM WORKERS COMPENSATION EXAMINER Supervision of other normal CBC WITH DIFFERENTIAL Routine 05/08/2012 4:21 PM WORKERS COMPENSATION EXAMINER Supervision of other normal documented in this encounter Results * (ABNORMAL) CBC WITH DIFFERENTIAL (05/08/2012 4:21 PM WORKERS COMPENSATION EXAMINER) WBC 9.2 4.0 - 9.8 K/uL [facility] RBC 3.77(L) 3.90 - 4.90 M/uL [facility] HEMOGLOBIN 10.7(L) 11.8 - 14.8 g/dL [facility] HEMATOCRIT 33.0(L) 35.5 - 44.0 % [facility] MCV 87.5 82.0 - 99.0 fL [facility] MCH 28.4 27.2 - 32.6 pg [facility] MCHC 32.4 31.5 - 35.5 % [facility] PLATELETS 214 140 - 350 K/uL [facility] MPV 12.4 9.3 - 12.4 fL [facility] RDW 14.4 11.5 - 14.5 % [facility] RDW-STDEV 45.8 37.1 - 48.7 fL [facility] NEUTROPHILS 78(H) 45 - 70 % [facility] LYMPHOCYTES 16 16 - 45 % [facility] MONOCYTES 6 3 - 13 % [facility] EOSINOPHILS 0 0 - 7 % [facility] BASOPHILS 0 0 - 2 % [facility] NEUTROPHIL ABSOLUTE 7.16(H) 1.90 - 7.00 K/uL [facility] LYMPHOCYTE ABSOLUTE 1.43 0.70 - 4.50 K/uL [facility] MONOCYTE ABSOLUTE 0.53 0.10 - 1.30 K/uL [facility] EOSINOPHIL ABSOLUTE 0.03 0.00 - 0.70 K/uL [facility] BASOPHILS ABSOLUTE 0.01 0.00 - 0.20 K/uL [facility] Blood specimen (specimen) 05/08/2012 4:21 PM WORKERS COMPENSATION EXAMINER 05/08/2012 4:35 PM WORKERS COMPENSATION EXAMINER Elena H Tarun [facility] HEMATOLOGY ORDERABLE S [facility]# [id number] [address] [place] [address] * GLUCOSE TOLERANCE 1 HR GESTATIONAL (05/08/2012 4:21 PM WORKERS COMPENSATION EXAMINER) GLUCOSE 1 HR OBSTETRIC 93 65 - 139 mg/dL [facility] Blood specimen (specimen) 05/08/2012 4:21 PM WORKERS COMPENSATION EXAMINER 05/08/2012 4:35 PM WORKERS COMPENSATION EXAMINER Comment:BLOOD Elena Mcneil MD CHEMISTRY ORDERABLES [facility]# [id number] [address] [place] [address] documented in this encounter Visit Diagnoses Diagnosis Supervision of other normal documented in this encounter
--- OUTSIDE RECORDS SUMMARY | 2024-04-29 22:47 | XMS_ITS | Encounter Summary ---
Author Organization Address [address] [place] [address] Care Team Providers Care Heel Sewer Name Role Phone Unavailable Primary Care Provider Unavailabl e Reason for Visit * Auth/Cert - Closed Specialty Diagnoses / Procedures Referred By Renee plasencia Referred To Contact Obstetrics Diagnoses ctx [facility] Labor [address] [place] [address] Referral ID Status Reason Start Date Expiration Date Visits Re quested Visits Authorized [id number] Closed 1 1 Encounter Details Date Type Department Care Team (Latest Contact Info) Description 08/17/2012 7:41 PM CDT - 08/17/2012 11:12 PM CDT Hospital Encounter [facility] Labor & [address] [place] [address] Elena Mcneil MD NO ADDRESS [...] Sign Reading Time Taken Comments Blood Pressure 131/87 08/17/2012 9:00 PM CDT Pulse - - Temperature 36.8 ??C (98.2 ??F) 08/17/2012 8:00 PM CD T Respiratory Rate - - Oxygen Saturation - - Inhaled Oxygen Concentration - - Weight 108 kg (238 lb) 08/17/2012 8:00 PM CDT Height 167.6 cm (5' 6 ) 08/17/2012 8:00 PM CDT Body Mass Index 38.41 08/17/2012 8:00 PM CDT documented in this encounter Discharge Instructions * Discharge Instructions* Oanh Blanchard RN - 08/17/2012 10:01 PM CDT Prescriptions: Prescriptions given? No Return to Labor and Delivery or notify your physician regarding: Contractions: Every 2-3 minutes, increasing in intensity after drinking plenty of water and lying on side Vaginal Bleeding: A small amount of spotting [...] face, hands, or feet. Additional Instructions: Keep follow up appointment on Saturday. Go to Dr. Mcneil's office on Saturday08/18/2012 for a bloodpressure check. Activity: Your activity level is no restrictions and no smoking. If you smoke you are advised to quit. Ask your health care provider for advice if you need assistance to stop smoking. Avoid second-hand smoke exposure and do not let people smoke in your home. Diet: Your diet is regular documented in this encounter Medications at Time of Discharge Medication Sig Dispensed Refills Start Date End Date iron bisgly & ps-FA-B&C#12-suc (IROSPAN /) 65 mg-65 mg -1,000 mcg (24) Oral Tab Take 1 Tab by mouth daily. 90 Tab 1 05/12/2012 01/20/2020 VIT #108/IRON/FA ( ONE ORAL) Take by mouth. 2019 documented as of this encounter H&P Notes * Nayeli Guardado MD - 08/17/2012 8:45 PM CDT OB History & Physical CC: ctx HPI: Oanh Ortiz is a 27 y.o. @ 38w5d by IVF dating who presents complaining of ctxsince 1700 today. Reports feeling painful contractions every 2-3 mins, not relieved by rest and hydration. Since presentation, she reports her ctx have subsided and now only feels occ cramping. She reports good movement, denies leakage of fluid, or vaginal bleeding. Reports headaches over past couple of days, not relieved by tylenol and occasional vision changes (black spots in vision) accompanied by vomiting. She deneis any history of elevated BPs in this . Her has been otherwise uncomplicated. Her primary OB is Elena Mcneil MD. ROS: As above. Denies nausea, vomiting, chest pain, shortness of breath, headache, or vision symptoms. 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 Denies STIs. PMHx: Past Medical History Diagnosis Date ??? PCOS (polycystic ovarian syndrome) ??? Abnormal Pap smear and cervical HPV (human papillomavirus) ??? Infertility associated with anovulation ??? Pap smear, abnormal ??? Bipolar 1 disorder ??? 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 H/O LEEP (loop electrosurgical excision procedure) of cervix complicating 2004 ??? Unspecified deficiency anemia iron supplements PSHx: Past Surgical History Procedure Date ??? Hx salpingectomy 2010 left for ectopic ??? Hx leep procedure 2004 FHx: Negative for breast, colon, or ovarian cancer. Negative for genetic tendencies, frequent miscarriage or bleeding disorders SHx: denies tobacco, alcohol, or illicit drug use Medications: No current facility-administered medications on file prior to encounter. Current Outpatient Prescriptions on File Prior to Encounter Medication Sig Dispense Refill ? ? iron bisgly & ps-FA-B&C#12-suc (IROSPAN 24/6) 65 mg-65 mg -1,000 mcg (24) Oral Tab Take1 Tab by mouth daily. 90 Tab 1 ??? VIT #108/IRON/FA ( ONE ORAL) Take by mouth. No Known Allergies Physical Exam: Filed Vitals: 08/17/12202908/17/12203908/17/12204908/17/12 2100 BP: 136/75 136/78 130/87 131/87 Temp: TempSrc: Height: Weight: General: Well-developed, well-nourished female in NAD HEENT: NCAT, moist mucus membranes Heart: RRR Lungs: CTAB Abdomen: Gravid, NT Extremities: No clubbing, cyanosis, or edema. No calf tenderness. SVE: per RN FHR: 120, mod variability, +accels, no decels [facility]: irritable Results for orders placed during the hospital encounter of 08/17/12 (from the past 24 hour(s)) CBC WITH DIFFERENTIAL Component Value Range WBC 13.4 (*) 4.0 - 9.8 K/uL RBC 3.89 (*) 3.90 - 4.90 M/uL HEMOGLOBIN 10.7 (*) 11.8 - 14.8 g/dL HEMATOCRIT 32.8 (*) 35.5 - 44.0 % MCV 84.3 82.0 - 99.0 fL MCH 27.5 27.2 - 32.6 pg MCHC 32.6 31.5 - 35.5 % PLATELETS 165 140 - 350 K/uL MPV 13.4 (*) 9.3 - 12.4 fL RDW 13.7 11.5 - 14.5 % RDW-STDEV 41.4 37.1 - 48.7 fL NEUTROPHILS 77 (*) 45 - 70 % LYMPHOCYTES 16 16 - 45 % MONOCYTES 7 3 - 13 % EOSINOPHILS 0 0 - 7 % BASOPHILS 0 0 - 2 % NEUTROPHIL ABSOLUTE 10.30 (*) 1.90 - 7.00 K/uL LYMPHOCYTE ABSOLUTE 2.07 0.70 - 4.50 K/uL MONOCYTE ABSOLUTE 0.93 0.10 - 1.30 K/uL EOSINOPHIL ABSOLUTE 0.04 0.00 - 0.70 K/uL BASOPHILS ABSOLUTE 0.02 0.00 - 0.20 K/uL COMPREHENSIVE METABOLIC PANEL Component Value Range SODIUM 138 135 - 145 mmol/L POTASSIUM 3.1 (*) 3.5 - 4.9 mmol/L CHLORIDE 105 96 - 108 mmol/L CO2 22 22 - 30 mmol/L CALCIUM 8.7 8.6 - 10.2 mg/dL BUN 3 (*) 6 - 20 mg/dL CREATININE 0.53 0.51 - 0.95 mg/dL GLUCOSE 90 65 - 99 mg/dL TOTAL PROTEIN 6.1 (*) 6.3 - 8.6 g/dL ALBUMIN 3.4 3.4 - 4.8 g/dL BILIRUBIN TOTAL 0.2 0.2 - 1.0 mg/dL ALKALINE PHOSPHATASE 152 (*) 35 - 104 U/L AST 12 12 - 32 U/L ALT 8 0 - 31 U/L GFR, >60 >=60 mL/min/1.7 sq meter GFR >60 >=60 mL/min/1.7 sq meter URIC ACID Component Value Range URIC ACID 3.4 2.3 - 6.6 mg/dL LACTATE DEHYDROGENASE Component Value Range LD (LACTATE DEHYDROGENASE) 181 135 - 214 U/L URINALYSIS WITH REFLEX CULTURE Component Value Range URINE CULTURE ORDER Not indicated URINALYSIS Component Value Range COLOR UA Yellow CLARITY UA Slt. Cloudy (*) Clear SPECIFIC GRAVITY UA 1.011 1.001 - 1.035 PH UA 6.5 5.0 - 8.0 LEUKOCYTE ESTERASE UA Negative Negative NITRITE UA Negative Negative PROTEIN UA Trace (*) Negative GLUCOSE UA Negative Negative KETONES UA Negative Negative UROBILINOGEN UA <1 <=1 mg/dL BILIRUBIN UA Negative Negative BLOOD UA Negative Negative WBC UA 2 0 - 5 /HPF RBC UA <1 0 - 4 /HPF EPITHELIAL CELLS, URINE 0-2 Assessment/Plan: 27 y.o. @ 38w5d with 1. Ctx - Currently not painful and none picked up on toco - Cervix per RN 2. status reassuring: - NST reactive 3. Elevated BPs upon admission - Range: 130-140/80-90s - Headaches not relieved by tylenol and black spots in vision over past couple of days, accompaniedby vomiting - Labs: WNL, except low K 3.[address] Corey. Ok to d/c patient home with labor/SROM and pre-e precautions. Followup with Dr. Mcneil at next visit and on Saturday for BP check. Nayeli Guardado MD PGY1 documented in this encounter Miscellaneous Notes * Assessment & Plan Note - Scanning, [facility] - 08/19/2012 3:46 PM CDT Electronically signed by [facility] Lead Programmer Analyst Incoming at 08/19/2012 3:46 PM CDT * Patient Instructions - Scanning, [facility] - 08/19/2012 3:46 PM CDT Electronically signed by [facility] Lead Programmer Analyst Incoming at 08/19/2012 3:46 PM CDT * Care Plan - Dilia Golden RN - 08/17/2012 10:35 PM CDT Discharge instructions given to pt and significant other. Denies questions or concerns. Verbalized understanding. Ambulating to private vehicle with significant other. * Treatment Plan - Pierre Naranjo PHARMACIST - 08/17/2012 10:00 PM CDT Images from the original note were not included. [place] [place] [address] [facility] Labor and Delivery Hemorrhage Protocol Nursing Orders: Administration Instructions: o Physician consultation required before administration for appropriate medication selection Medication Orders: o Oxytocin 20 units in 1000mL of lactated Ringer???s IV at bolus rate until satisfactory uterine response is achieved as needed after consultation with resident or attending physician o Methylergonovine (METHERGINE) 0.2mg IM every 15 minutes as needed for excessive bleeding in the immediate period as needed after consultation with resident or attending physician. Maximum of 2 doses. o Carboprost tromethamine (HEMABATE) 250 micrograms IM every 15 minutes as needed for excessive bleeding in the immediate period as needed after consultation with resident or attending physician. Maximum of 8 doses. o Misoprostol (CYTOTEC) 200micrograms tablets, administer 800mirograms (4 tabs) per RECTUM one timeas needed for excessive bleeding in the immediate period after consultation with resident of attending physician. Maximum of 1 dose. o documented in this encounter Plan of Treatment Not on file documented as of this encounter Procedures Procedure Name Priority Date/Time Associated Diagnosis Comments URINALYSIS WITH REFLEX CULTURE Stat 08/17/2012 8:58 PM CDT URINALYSIS W/REFLEX MICROSCOPIC Stat 08/17/2012 8:58 PM CDT CBC WITH DIFFERENTIAL Stat 08/17/2012 8:30 PM CDT URIC ACID Stat 08/17/2012 8:30 PM CDT LACTATE DEHYDROGENASE Stat 08/17/2012 8:30 PM CDT COMPREHENSIVE METABOLIC PANEL Stat 08/17/2012 8:30 PM CDT documented in this encounter Results * (ABNORMAL) URINALYSIS (08/17/2012 8:58 PM CDT) COLOR UA Yellow [facility] CLARITY UA Slt. Cloudy(A) Clear [facility] SPECIFIC GRAVITY UA 1.011 1.001 - 1.035 [facility] PH UA 6.5 5.0 - 8.0 [facility] LEUKOCYTE ESTERASE UA Negative Negative [facility] NITRITE UA Negative Negative [facility] PROTEIN UA Trace(A) Negative [facility] GLUCOSE UA Negative Negative [facility] KETONES UA Negative Negative [facility] UROBILINOGEN UA <1 <=1 mg/dL [facility] BILIRUBIN UA Negative Negative [facility] BLOOD UA Negative Negative [facility] WBC UA 2 0 - 5 /HPF [facility] RBC UA <1 0 - 4 /HPF [facility] EPITHELIAL CELLS, URINE 0-2 /HPF [facility] 08/17/2012 8:58 PM CDT 08/17/2012 9:17 PM CDT Comment:URINE VOIDED Nayeli Guardado MD URINE ORDERABLES Performing Organization Address City/[facility] Co de Phone Number [facility] CLIA# [id number] [address] [place] [address] * URINALYSIS WITH REFLEX CULTURE (08/17/2012 8:58 PM CDT) URINE CULTURE ORDER Not indicated [facility] Comment: Criteria for a reflex culture include one or more of the following: ??Abnormal nitrite, leukocyte esterase, WBCs or RBCs. ??Lack of qualifying criteria does not exclude the possiblity of a urinary tract infection. ??Dilute urine, drug interference, etc. may decrease the sensitivity of the criteria analytes. Urine, clean catch 08/17/2012 8:58 PM CDT 08/17/2012 9:17 PM CDT Comment:URINE VOIDED Nayeli Guardado MD URINE ORDERABLES Performing Organization Address City/[facility]/ZIP Co de Phone Number [facility] CLIA# [id number] [address] [place] [place] [address] * LACTATE DEHYDROGENASE (08/17/2012 8:30 PM CDT) LD (LACTATE DEHYDROGENASE) 181 135 - 214 U/L [facility] Blood specimen (specimen) 08/17/2012 8:30 PM CDT 08/17/2012 8:52 PM CDT Nayeli Guardado MD CHEMISTRY ORDERABLES [facility] CLIA# [id number] [address] [place] [address] * URIC ACID (08/17/2012 8:30 PM CDT) URIC ACID 3.4 2.3 - 6.6 mg/dL [facility] Blood specimen (specimen) 08/17/2012 8:30 PM CDT 08/17/2012 8:52 PM CDT Nayeli Guardado MD CHEMISTRY ORDERABLES Performing Organization Address [facility]/ZIP Co de Phone Number [facility] CLIA# [id number] [address] [place] [address] * (ABNORMAL) COMPREHENSIVE METABOLIC PANEL (08/17/2012 8:30 PM CDT) Pathologist [facility] SODIUM 138 135 - 145 mmol/L [facility] POTASSIUM 3.1(L) 3.5 - 4.9 mmol/L [facility] CHLORIDE 105 96 - 108 mmol/L [facility] CO2 22 22 - 30 mmol/L [facility] CALCIUM 8.7 8.6 - 10.2 mg/dL [facility] BUN 3(L) 6 - 20 mg/dL [facility] CREATININE 0.53 0.51 - 0.95 mg/dL [facility] GLUCOSE 90 65 - 99 mg/dL [facility] TOTAL PROTEIN 6.1(L) 6.3 - 8.6 g/dL [facility] ALBUMIN 3.4 3.4 - 4.8 g/dL [facility] BILIRUBIN TOTAL 0.2 0.2 - 1.0 mg/dL [facility] ALKALINE PHOSPHATASE 152(H) 35 - 104 U/L [facility] AST 12 12 - 32 U/L [facility] ALT 8 0 - 31 U/L [facility] GFR, >60 >=60 mL/min/1. 7 sq meter [facility] GFR >60 >=60 mL/min/1. 7 sq meter [facility] Comment: GFR is calculated using the IDMS-Traceable Modification of Diet in Renal Disease (MDRD) Study formula and is only valid for patients 18 years or older. Further interpretative information is available in the Laboratory Services Policy Manual on the [facility] Intranet at: [email or web address]/ Blood specimen (specimen) 08/17/2012 8:30 PM CDT 08/17/2012 8:52 PM CDT Nayeli Guardado MD CHEMISTRY ORDERABLES [facility] CLIA# [id number] [address] [place] [address] * (ABNORMAL) CBC WITH DIFFERENTIAL (08/17/2012 8:30 PM CDT) WBC 13.4(H) 4.0 - 9.8 K/uL [facility] RBC 3.89(L) 3.90 - 4.90 M/uL [facility] HEMOGLOBIN 10.7(L) 11.8 - 14.8 g/dL [facility] HEMATOCRIT 32.8(L) 35.5 - 44.0 % [facility] MCV 84.3 82.0 - 99.0 fL [facility] MCH 27.5 27.2 - 32.6 pg [facility] MCHC 32.6 31.5 - 35.5 % [facility] PLATELETS 165 140 - 350 K/uL [facility] MPV 13.4(H) 9.3 - 12.4 fL [facility] RDW 13.7 11.5 - 14.5 % [facility] RDW-STDEV 41.4 37.1 - 48.7 fL [facility] NEUTROPHILS 77(H) 45 - 70 % [facility] LYMPHOCYTES 16 16 - 45 % [facility] MONOCYTES 7 3 - 13 % [facility] EOSINOPHILS 0 0 - 7 % [facility] BASOPHILS 0 0 - 2 % [facility] NEUTROPHIL ABSOLUTE 10.30(H) 1.90 - 7.00 K/uL [facility] LYMPHOCYTE ABSOLUTE 2.07 0.70 - 4.50 K/uL [facility] - [facility] MONOCYTE ABSOLUTE 0.93 0.10 - 1.30 K/uL [facility] EOSINOPHIL ABSOLUTE 0.04 0.00 - 0.70 K/uL [facility] BASOPHILS ABSOLUTE 0.02 0.00 - 0.20 K/uL [facility] Blood specimen (specimen) 08/17/2012 8:30 PM CDT 08/17/2012 8:52 PM CDT Nayeli Guardado MD HEMATOLOGY ORDERABLE S [facility] [id number] [address] [place] [address] documented in this encounter Visit Diagnoses Diagnosis Ctx, elevated BPs (labs pending) Other threatened labor, unspecified as to episode of care documented in this encounter Administered Medications Inactive Administered Medications - up to 3 most recent administrations Medication Order MAR Action Action Date Dose Rate Site potassium chloride (KLOR-CON,K-TAB) tablet 40 mEq 40 mEq, Oral, ONE TIME ONLY, 1 dose, On 08/17/12 at 2200, Routine Given 08/17/2012 10:33 PM CDT 40 mEq documented in this encounter Active and Recently Administered Medications Times are shown in CDT. Scheduled Medication Order 08/15/2012 08/16/2012 08/17/2012 potassium chloride (KLOR-CON,K-TAB) tablet 40 mEq (COMPLETED) 40 mEq, Oral, ONE TIME ONLY, 1 dose, On 08/17/12 at 2200, Routine 2233 (Given - Provid er: Dilia Golden RN) documented in this encounter
--- OUTSIDE RECORDS SUMMARY | 2024-04-29 22:47 | XMS_ITS | Encounter Summary ---
Author Organization [facility] Address [address] [place] [address] Care Team Providers Care In Process Inspector Name Role Phone Unavailable Primary Care Provider Unavailabl e Reason for Visit * Auth/Cert - Closed Specialty Diagnoses / Procedures Referred By Renee plasencia Referred To Contact Obstetrics Diagnoses n/v/d/contractions [facility] Ob Triage [address] [place] [address] Referral ID Status Reason Start Date Expiration Date Visits Re quested Visits Authorized [id number] Closed 07/22/2012 08/22/2013 1 Encounter Details Date Type Department Care Team (Latest Contact Info) Description 07/21/2012 10:49 AM CDT - 07/21/2012 3:41 PM CDT Hospital Encounter [facility] OB Triage [address] [place] [address] Elena Mcneil MD NO ADDRESS [...] Sign Reading Time Taken Comments Blood Pressure 128/82 07/21/2012 11:07 AM CDT Pulse 98 07/21/2012 11:07 AM CDT Temperature 36.6 ??C (97.9 ??F) 07/21/2012 11:07 AM C DT Respiratory Rate 16 07/21/2012 11:07 AM CDT Oxygen Saturation - - Inhaled Oxygen Concentration - - Weight 106.1 kg (234 lb) 07/21/2012 11:07 AM CDT Height 167.6 cm (5' 6 ) 07/21/2012 11:07 AM CDT Body Mass Index 37.77 07/21/2012 11:07 AM CDT documented in this encounter Discharge Instructions * Discharge Instructions* Alicja Lazo RN - 07/21/2012 3:16 PM CDT Follow-up: Follow-up with your doctor at your next scheduled appointment. Prescriptions given? Yes, Potassium Chloride Return to Labor and Delivery or notify your physician regarding: Contractions: 5-6 in one hour increasing in intensity after drinking plenty of water and lying on side. Vaginal Bleeding: A small amount of spotting [...] of face, hands, or feet. Additional Instructions: Drink plenty of water Activity: Your activity level is no restrictions [...] of this encounter Progress Notes * Alicja Lazo RN - 07/21/2012 3:45 PM CDT Pt. Discharged home with prescription for Potassium Chloride. documented in this encounter H&P Notes * Ever Patel CNM - 07/21/2012 12:45 PM CDT OB H&P Chief Complaint:HPI: Oanh Ortiz is a 27 y.o. female 34w6d weeks gestation based on the Patient's last menstrual period was 11/22/2011. who presents to the OBT from home after notifying the office N/V/D and PTC's. Patient reports having 1 episode of vomiting and 2 episodes of diarrhea and PTC associatedwith her N/V/D. Patient reports the PTC's are resolved since yesterday. Patient reports no bleeding, no leaking, no contractions, normal movement. Her primary rv technician is Elena Mcneil MD. Current Problem List: 1. Gastroenteritis and PTC OB History Grav Para Term Abortions TAB [...] in the electronic record. Review of Systems Constitutional: Negative for fever, well nourished HEENT: Negative for headache or visual changes. Respiratory: Negative for SOB, non smoker Cardiovascular: Negative for chest pain. Gastrointestinal: Negative for abdominal pain, constipation Genitorurinary: Negative for dysuria, frequency. Musculoskeletal: Negative for back pain Skin: Negative for rash Neurological: Negative for syncope or dizziness Hematological: Negative for bruising/bleeding easily Exam: Filed Vitals: 07/21/12 1107 BP: 128/82 Pulse: 98 Temp: 97.9 ??F (36.6 ??C) TempSrc: Oral Resp: 16 Height: 5' 6 (1.676 m) Weight: 234 lb (106.142 kg) Constitutional: alert, no distress Lungs: clear to auscultation bilaterally, non smoker Heart: regular rate & rhythm, no murmur, negative for chest pain or SOB Abdomen: soft, gravid, no fundal tenderness. Musculoskeletal: Negative edema FHT: FHT baseline @ 130 with + accelerations and - decelerations TOCO: no UC's recorded today Cervix: Dilation: closed Effacement: Soft Station: High Lab Review Labs: UA, BMP Results for orders placed during the hospital encounter of 07/21/12 (from the past 24 hour(s)) BASIC METABOLIC PANEL Component Value Range SODIUM 136 135 - 145 mmol/L POTASSIUM 2.8 (*) 3.5 - 4.9 mmol/L CHLORIDE 104 96 - 108 mmol/L CO2 20 (*) 22 - 30 mmol/L CALCIUM 8.6 8.6 - 10.2 mg/dL BUN 3 (*) 6 - 20 mg/dL CREATININE 0.48 (*) 0.51 - 0.95 mg/dL GLUCOSE 108 (*) 65 - 99 mg/dL GFR, >60 >=60 mL/min/1.7 sq meter GFR >60 >=60 mL/min/1.7 sq meter URINALYSIS WITH MICROSCOPIC Component Value Range COLOR UA Yellow CLARITY UA Clear Clear SPECIFIC GRAVITY UA 1.013 1.001 - 1.035 PH UA 7.0 5.0 - 8.0 LEUKOCYTE ESTERASE UA Negative Negative NITRITE UA Negative Negative PROTEIN UA Trace (*) Negative GLUCOSE UA Negative Negative KETONES UA Negative Negative UROBILINOGEN UA <1 <=1 mg/dL BILIRUBIN UA Negative Negative BLOOD UA Negative Negative WBC UA 1 0 - 5 /HPF RBC UA <1 0 - 4 /HPF EPITHELIAL CELLS, URINE 0-2 TRANSITIONAL EPI 0-2 AMORPHOUS CRYSTAL Rare Assessment: 1. 34w6d weeks gestation 2. Reactive NST 3. Hypokalemia Plan: Observe in WEU IV: D5LR at 500 ml per hours for 2 hours Meds: Zofran 4 mg IV for one dose Notified the attending access liaison Dr. Mcneil: Recommended D5LR with 20 Meq KCL for one liter. After the patient is discharged home provided 40 Meq of oral KCL replacement for 2 days. Recommended discharge home with hydration precautions and labor precautions. May discharge to home with reassurance. F/U in office as scheduled or sooner with concerns. * Ever PaetlMARIAJOSE - 07/21/2012 11:30 AM CDT OB H&P Chief Complaint:HPI: Oanh Ortiz is a 27 y.o. female 34w6d weeks gestation based on the Patient's last menstrual period was 11/22/2011. who presents to the OBT from home after notifying the office N/V/D and PTC's. Patient reports having 1 episode of vomiting and 2 episodes of diarrhea and PTC associatedwith her N/V/D. Patient reports the PTC's are resolved since yesterday. Patient reports no bleeding, no leaking, no contractions, normal movement. Her primary rv technician is Elena Mcneil MD. Current Problem List: 1. Gastroenteritis and PTC OB History Grav Para Term Abortions TAB SAB Ect Mult Living 2 1 1 # Outc Date GA Lbr Ray/2nd Wgt Sex Del Anes PTL Lv 1 ECT 2010 2 CUR GYNHX/ Past Medical History Diagnosis [...] ? ? iron bisgly & ps-FA-B&C#12-suc (IROSPAN 20/10) 65 mg-65 mg -1,000 mcg (24) Oral Tab Take1 Tab by mouth daily. 90 Tab 1 ??? VIT #108/IRON/FA ( ONE ORAL) Take by mouth. No Known Allergies The above has been reviewed with the patient & documented in the electronic record. Review of Systems Constitutional: Negative for fever, well nourished HEENT: Negative for headache or visual changes. Respiratory: Negative for SOB, non smoker Cardiovascular: Negative for chest pain. Gastrointestinal: Negative for abdominal pain, constipation Genitorurinary: Negative for dysuria, frequency. Musculoskeletal: Negative for back pain Skin: Negative for rash Neurological: Negative for syncope or dizziness Hematological: Negative for bruising/bleeding easily Exam: Filed Vitals: 07/21/12 1107 BP: 128/82 Pulse: 98 Temp: 97.9 ??F (36.6 ??C) TempSrc: Oral Resp: 16 Height: 5' 6 (1.676 m) Weight: 234 lb (106.142 kg) Constitutional: alert, no distress Lungs: clear to auscultation bilaterally, non smoker Heart: regular rate & rhythm, no murmur, negative for chest pain or SOB Abdomen: soft, gravid, no fundal tenderness. Musculoskeletal: Negative edema FHT: FHT baseline @ 130 with + accelerations and - decelerations TOCO: no UC's recorded today Cervix: Dilation: Effacement: Station: Lab Review Labs: UA, BMP Results for orders placed during the hospital encounter of 07/21/12 (from the past 24 hour(s)) BASIC METABOLIC PANEL Component Value Range SODIUM 136 135 - 145 mmol/L POTASSIUM 2.8 (*) 3.5 - 4.9 mmol/L CHLORIDE 104 96 - 108 mmol/L CO2 20 (*) 22 - 30 mmol/L CALCIUM 8.6 8.6 - 10.2 mg/dL BUN 3 (*) 6 - 20 mg/dL CREATININE 0.48 (*) 0.51 - 0.95 mg/dL GLUCOSE 108 (*) 65 - 99 mg/dL GFR, >60 >=60 mL/min/1.7 sq meter GFR >60 >=60 mL/min/1.7 sq meter URINALYSIS WITH MICROSCOPIC Component Value Range COLOR UA Yellow CLARITY UA Clear Clear SPECIFIC GRAVITY UA 1.013 1.001 - 1.035 PH UA 7.0 5.0 - 8.0 LEUKOCYTE ESTERASE UA Negative Negative NITRITE UA Negative Negative PROTEIN UA Trace (*) Negative GLUCOSE UA Negative Negative KETONES UA Negative Negative UROBILINOGEN UA <1 <=1 mg/dL BILIRUBIN UA Negative Negative BLOOD UA Negative Negative WBC UA 1 0 - 5 /HPF RBC UA <1 0 - 4 /HPF EPITHELIAL CELLS, URINE 0-2 TRANSITIONAL EPI 0-2 AMORPHOUS CRYSTAL Rare Assessment: 1. 34w6d weeks gestation 2. Reactive NST 3. Hypokalemia Plan: Observe in WEU IV: D5LR at 500 ml per hours for 2 hours Meds: Zofran 4 mg IV for one dose Notified the attending access liaison Dr. Mcneil: Recommended discharge home with hydration precautions and labor precautions. May discharge to home with reassurance. F/U in office as scheduled or sooner with concerns. Script: Klor 40 EQ every day for 5 days. documented in this encounter Miscellaneous Notes * Assessment & Plan Note - Scanning, [facility] - 07/27/2012 7:46 PM CDT Electronically signed by Interface [facility] Prototype Engineer Manager Incoming at 07/27/2012 7:46 PM CDT * Patient Instructions - Scanning, [facility] - 07/27/2012 7:46 PM CDT Electronically signed by Interface, [facility] Prototype Engineer Manager Incoming at 07/27/2012 7:46 PM CDT documented in this encounter Plan of Treatment Not on file documented as of this encounter Procedures Procedure Name Priority Date/Time Associated Diagnosis Comments URINALYSIS WITH MICROSCOPIC Routine 07/21/2012 11:21 AM CDT BASIC METABOLIC PANEL Stat 07/21/2012 11:10 AM CDT NONSTRESS TEST Routine 07/21/2012 11:09 AM CDT documented in this encounter Results * (ABNORMAL) URINALYSIS WITH MICROSCOPIC (07/21/2012 11:21 AM CDT) COLOR UA Yellow [facility] CLARITY UA Clear Clear [facility] SPECIFIC GRAVITY UA 1.013 1.001 - 1.035 [facility] PH UA 7.0 5.0 - 8.0 [facility] LEUKOCYTE ESTERASE UA Negative Negative [facility] NITRITE UA Negative Negative [facility] PROTEIN UA Trace(A) Negative [facility] GLUCOSE UA Negative Negative [facility] KETONES UA Negative Negative [facility] UROBILINOGEN UA <1 <=1 mg/dL [facility] BILIRUBIN UA Negative Negative [facility] BLOOD UA Negative Negative [facility] WBC UA 1 0 - 5 /HPF [facility] RBC UA <1 0 - 4 /HPF [facility] EPITHELIAL CELLS, URINE 0-2 /HPF [facility] TRANSITIONAL EPI 0-2 /HPF [facility] AMORPHOUS CRYSTAL Rare /HPF [facility] Urine, clean catch URINE SPECIMEN OBTAINED BY CLEAN CATCH PROCEDURE / Unknown 07/21/2012 11:21 AM CDT 07/21/2012 11:29 AM CDT Comment:URINE Ever Patel CNM URINE ORDERABLE S [facility] CLIA# [id number] [address] [place] [id number] * (ABNORMAL) BASIC METABOLIC PANEL (07/21/2012 11:10 AM CDT) SODIUM 136 135 - 145 mmol/L [facility] POTASSIUM 2.8(L) 3.5 - 4.9 mmol/L [facility] CHLORIDE 104 96 - 108 mmol/L [facility] CO2 20(L) 22 - 30 mmol/L [facility] CALCIUM 8.6 8.6 - 10.2 mg/dL [facility] BUN 3(L) 6 - 20 mg/dL [facility] CREATININE 0.48(L) 0.51 - 0.95 mg/dL [facility] GLUCOSE 108(H) 65 - 99 mg/dL [facility] GFR, >60 >=60 mL/min/1. 7 sq meter [facility] - . [facility] GFR >60 >=60 mL/min/1. 7 sq meter [facility] Comment: GFR is calculated using the IDMS-Traceable Modification of Diet in Renal Disease (MDRD) Study formula and is only valid for patients 18 years or older. Further interpretative information is available in the Laboratory Services Policy Manual on the [facility] Intranet at: [email or web address]-intranet.[email or web address]/ Blood specimen (specimen) 07/21/2012 11:10 AM CDT 07/21/2012 11:39 AM CDT Ever Patel CNM CHEMISTRY ORDER ONI [facility]# [id number] [address] [place] [place] [address] documented in this encounter Visit Diagnoses Not on filedocumented in this encounter Administered Medications Inactive Administered Medications - up to 3 most recent administrations Medication Order MAR Action Action Date Dose Rate Site dextrose 5% - lactated ringers infusion IV, at 500 mL/hr, CONTINUOUS, Starting on Sat07/21/12 at 1130, Until Sat07/21/12 at 1329, Routine New Bag 07/21/2012 11:23 AM CDT 500 m L/hr ondansetron (ZOFRAN) 4 mg/2 mL injection 4 mg 4 mg, IV, ONE TIME ONLY, 1 dose, On Sat07/21/12 at 1130, Stat Given 07/21/2012 11:29 AM CDT 4 mg potassium Cl 20 mEq in dextrose 5% - lactated ringers 1,000 mL infusion IV, at 500 mL/hr, CONTINUOUS, Starting on Sat07/21/12 at 1245, Until Sat07/21/12 at 1444, Routine New Bag 07/21/2012 1:17 PM CDT 20 mEq 500 mL /hr documented in this encounter Active and Recently Administered Medications Times are shown in CDT. Scheduled Medication Order 07/19/2012 07/20/2012 07/21/2012 ondansetron (ZOFRAN) 4 mg/2 mL injection 4 mg (COMPLETED) 4 mg, IV, ONE TIME ONLY, 1 dose, On Sat07/21/12 at 1130, Stat 1129 (Given - Provid er: Alicja Lazo RN) Continuous Medication Order 07/19/2012 07/20/2012 07/21/2012 dextrose 5% - lactated ringers infusion IV, at 500 mL/hr, CONTINUOUS, Starting on Sat07/21/12 at 1130, Until Sat07/21/12 at 1329, Routine 1123 (New Bag - Prov ider: Alicja Lazo RN) potassium Cl 20 mEq in dextrose 5% - lactated ringers 1,000 mL infusion IV, at 500 mL/hr, CONTINUOUS, Starting on Sat07/21/12 at 1245, Until Sat07/21/12 at 1444, Routine 1317 (New Bag - Prov ider: Alicja Lazo RN) documented in this encounter
--- OUTSIDE RECORDS SUMMARY | 2024-04-29 22:47 | XMS_ITS | Encounter Summary ---
Author Organization [facility] Address [address] [place] [address] Care Team Providers Care Animation Camera Operator Name Role Phone Unavailable Primary Care Provider Unavailabl e Reason for Visit * Reason Comments Missed Menses Encounter Details Date Type Department Care Team (Late st Contact Info) Description 03/12/2012 2:00 PM LITHOGRAPHIC PLATE MAKER Office Visit [facility] [address] [address] Shaye Talley NP [address] [place] [address] Supervision of other normal (Primary Dx) Social [...] Sign Reading Time Taken Comments Blood Pressure 122/64 03/12/2012 2:45 PM LITHOGRAPHIC PLATE MAKER Pulse - - Temperature - - Respiratory Rate - - Oxygen Saturation - - Inhaled Oxygen Concentration - - Weight 96.8 kg (213 lb 6.4 oz) 03/12/2012 2:45 P M LITHOGRAPHIC PLATE MAKER Height 166.4 cm (5' 5.5 ) 03/12/2012 2:45 PM LITHOGRAPHIC PLATE MAKER Body Mass Index 34.97 03/12/2012 2:45 PM LITHOGRAPHIC PLATE MAKER documented in this encounter Progress Notes * Shaye Talley NP - 03/12/2012 3:15 PM CST Oanh is 26 y.o. year old who presents with amenorrhea. Patient's last menstrual period was 11/22/2011. Has PCOS. Had IVF X 2, 2 nd was successful/ Has had PNC at two other OB offices but did not like them and is seeking care here. Already had a pap smear, ultrasound and lab work, will get records. Symptoms: none. Excited about . ROS: normal menses, no abnormal bleeding, pelvic pain or discharge, no breast pain or new or enlarging lumps on self exam EXAM: General Appearance: Alert, appropriate appearance for age. No acute distress ASSESSMENT: Amenorrhea with positive test Approximately 16 weeks by LMP, with EDC 08/26/12 PLAN: Get records New OB information packet given and education done. vitamins RTO 2 weeks for initial OB visit with flowsheet RTO 2 weeks for US OGRAPHIC PLATE MAKER documented in this encounter Plan of Treatment Not on file documented as of this encounter Visit Diagnoses Diagnosis Supervision of other normal - Primary documented in this encounter
--- OUTSIDE RECORDS SUMMARY | 2024-04-29 22:47 | XMS_ITS | Encounter Summary ---
Author Organization [facility] Address [address] [place] [address] Care Team Providers Care Primer Waterproofing Machine Adjuster Name Role Phone Unavailable Primary Care Provider Unavailabl e Reason for Visit * Reason Comments Routine Visit Encounter Details Date Type Department Care Team (Latest Contact Info) Description 08/13/2012 2:00 PM CDT visit [facility] [address] [address] Elena Mcneil MD NO ADDRESS [...] Sign Reading Time Taken Comments Blood Pressure 138/82 08/13/2012 2:55 PM CDT Pulse - - Temperature - - Respiratory Rate - - Oxygen Saturation - - Inhaled Oxygen Concentration - - Weight 109.1 kg (240 lb 9.6 oz) 08/13/2012 2:55 PM CDT Height - - Body Mass Index 38.83 07/21/2012 11:07 AM CDT documented in this encounter Progress Notes * Elena Mcneil MD - 08/13/2012 3:12 PM CDT Dimple dilated, but thin. No LOF rare ctx. documented in this encounter Plan of Treatment Not on file documented as of this encounter Visit Diagnoses Diagnosis Supervision of other normal - Primary documented in this encounter
--- OUTSIDE RECORDS SUMMARY | 2024-04-29 22:47 | XMS_ITS | Encounter Summary ---
Author Organization [facility] Address [address] [place] [address] Care Team Providers Care Quality Control Clerk Name Role Phone Unavailable Primary Care Provider Unavailabl e Reason for Visit * Reason Comments Routine Visit Encounter Details Date Type Department Care Team (Latest Contact Info) Description 06/25/2012 1:00 PM CERTIFIED HYPERBARIC TECHNOLOGIST visit [facility] [address] [address] Elena Mcneil MD NO ADDRESS [...] Sign Reading Time Taken Comments Blood Pressure 124/74 06/25/2012 1:15 PM CERTIFIED HYPERBARIC TECHNOLOGIST Pulse - - Temperature - - Respiratory Rate - - Oxygen Saturation - - Inhaled Oxygen Concentration - - Weight 103.4 kg (228 lb) 06/25/2012 1:15 PM CERTIFIED HYPERBARIC TECHNOLOGIST Height - - Body Mass Index 36.8 06/13/2012 6:46 PM CERTIFIED HYPERBARIC TECHNOLOGIST documented in this encounter Progress Notes * Elena Mcneil MD - 06/25/2012 1:21 PM CST US in 4 weeks; wants delayed cord clamping. IFIED HYPERBARIC TECHNOLOGIST documented in this encounter Plan of Treatment Not on file documented as of this encounter Visit Diagnoses Diagnosis Supervision of other normal - Primary documented in this encounter
--- OUTSIDE RECORDS SUMMARY | 2024-04-29 22:47 | XMS_ITS | Encounter Summary ---
Author Organization [facility] Address [address] [place] [address] Care Team Providers Care Library Technology Instructor Name Role Phone Unavailable Primary Care Provider Unavailabl e Reason for Visit * Reason Comments Ultrasound * Outpatient Services (Routine) - Closed Specialty Diagnoses / Procedures Referred By Renee wray Referred To Contact Obstetrics and Gynecology Diagnoses US OB 35WKS Procedures OB US Elena Mcneil MD NO ADDRESS ON FILE Elena Mcneil MD NO ADDRESS ON FILE Referral ID Status Reason Start Date Expiration Date Visits Re quested Visits Authorized [id number] Closed 07/24/2012 08/24/2013 1 1 Encounter Details Date Type Department Care Team (Late st Contact Info) Description 07/24/2012 11:00 AM CDT Office Visit [facility] [address] [address] Supervision of other normal (Primary Dx); Significant discrepancy between uterine size and clinical dates, antepartum Social History Tobacco Use Types Packs/Day Years [...] on file documented as of this encounter Progress Notes * Marcie Humphries - 07/24/2012 4:08 PM CDT US documented in this encounter Plan of Treatment Not on file documented as of this encounter Procedures Procedure Name Priority Date/Time Associated Diagnosis Comments US OB FOLLOW UP PER FETUS Routine 07/24/2012 Supervision of other normal Significant discrepancy between uterine size and clinical dates, antepartum documented in this encounter Results * US OB FOLLOW UP PER FETUS (07/24/2012) Anatomical Region Laterality Modality Pelvis Other Impressions 07/24/2012 SEE SCAN Elena Mcneil MD US ORDERABLES documented in this encounter Visit Diagnoses Diagnosis Supervision of other normal - Primary Significant discrepancy between uterine size and clinical dates, antepartum Uterine size date discrepancy, antepartum condition or complication documented in this encounter
--- OUTSIDE RECORDS SUMMARY | 2024-04-29 22:47 | XMS_ITS | Encounter Summary ---
Author Organization [facility] Address [address] [place] [address] Care Team Providers Care Second Language Tutor Name Role Phone Unavailable Primary Care Provider Unavailabl e Reason for Visit * Reason Comments Ultrasound * Outpatient Services (Routine) - Closed Specialty Diagnoses / Procedures Referred By Renee wray Referred To Contact Obstetrics and Gynecology Diagnoses US OB 18WKS AHR Procedures OB US Elena Mcneil MD NO ADDRESS ON FILE Elena Mcneil MD NO ADDRESS ON FILE Referral ID Status Reason Start Date Expiration Date Visits Re quested Visits Authorized [id number] Closed 04/10/2012 04/10/2013 1 1 Encounter Details Date Type Department Care Team (Late st Contact Info) Description 04/10/2012 11:30 AM HOSPITALITY MANAGER Office Visit [facility] [address] [address] Encounter for routine screening for malformation using ultrasonics; Supervision of other normal Social History Tobacco Use Types Packs/Day Years [...] encounter Progress Notes * Marcie Humphries - 05/14/2012 1:25 PM CST US ITALITY MANAGER documented in this encounter Plan of Treatment Not on file documented as of this encounter Procedures Procedure Name Priority Date/Time Associated Diagnosis Comments US OB DETAIL SINGLE GEST Routine 05/14/2012 Encounter for routine screening for malformation using ultrasonics Supervision of other normal documented in this encounter Results * US OB DETAIL SINGLE GEST (05/14/2012) Anatomical Region Laterality Modality Pelvis Other Impressions 05/14/2012 SEE SCAN Elena Mcneil MD US ORDERABLES documented in this encounter Visit Diagnoses Diagnosis Encounter for routine screening for malformation using ultrasonics Supervision of other normal documented in this encounter
--- OUTSIDE RECORDS SUMMARY | 2024-04-29 23:55 | XMS_ITS | Referral Summary ---
Author Organization [facility] Address [address] [place] [address] [place] [address] Care Team Providers Care Brick Shader Name Role Phone Steve Davis MD Primary Care Provider [phone] Source Comments [facility],non-owned Affiliates and Associated Physician Practices is amultiple site organization consisting of ambulatory clinics and hospital sitesin [place], [place], [place] and [place]. This disclosure is being madepursuant to the Care Everywhere program and may not contain all information available regarding this patient. Last updated 18.[facility] Allergies No known active allergies Medications * [...] Obesity 11/14/2014 Supervision of high risk in [facility] 11/14/2014 Overview (11/14/2014): Dating: IVF History of [...] Comments Blood Pressure 112/70 05/05/2015 1:44 PM CREDENTIALING MANAGER Pulse 76 05/05/2015 1:44 PM CREDENTIALING MANAGER Temperature 36.7 ??C (98.1 ??F) 04/03/2015 8:00 AM CS T Respiratory Rate 16 05/05/2015 1:44 PM CREDENTIALING MANAGER Oxygen Saturation 96% 03/31/2015 3:07 AM CREDENTIALING MANAGER Inhaled Oxygen Concentration - - Weight 91.6 kg (202 lb) 05/05/2015 1:44 PM CREDENTIALING MANAGER Height 167.6 cm (5' 6 ) 05/05/2015 1:44 PM CREDENTIALING MANAGER Body Mass Index 32.6 05/05/2015 1:44 PM CREDENTIALING MANAGER Functional Status Functional Status Response Date [...] W RFLX REFLEXED Routine 04/29/1998 12:00 AM CREDENTIALING MANAGER from Last 3 Months or Most Recently Relevant to Health Maintenance Results * HIV-1 HIV-2 ANTIBODIES W RFLX REFLEXED (04/29/1998 12:00 AM CREDENTIALING MANAGER) HIV 1/2 EIA Antibody neg [facility] 04/29/1998 Narrative [facility] - 04/29/1998 12:00 AM CREDENTIALING MANAGER This external order was created through the Results Console. Historical Provider LAB - CHEMISTRY O RDERABLES [facility] from Last 3 Months or Most [...] 4:02 PM 03/09/2015 9:06 PM Care Teams Brick Shader Relationship Specialty Start Date End Date Steve Davis MD [address] [place] [address] PCP - General Family Medicine 03/30/15
--- OUTSIDE RECORDS SUMMARY | 2024-04-29 23:55 | XMS_ITS | Clinical Summary ---
Author Organization [facility] [employer] Address [address] [place] [address] [place] [address] Care Team Providers Care Development Mechanic Name Role Phone Steve Davis MD Primary Care Provider [phone] Source Comments [facility],non-owned Affiliates and Associated Physician Practices is amultiple site organization consisting of ambulatory clinics and hospital sitesin [place], [place], [place] and [place]. This disclosure is being madepursuant to the Care Everywhere program and may not contain all information available regarding this patient. Last updated 18.[facility] Allergies No known active allergies Medications * [...] Obesity 11/14/2014 Supervision of high risk in [facility] 11/14/2014 Overview (11/14/2014): Dating: [...] Comments Blood Pressure 112/70 05/05/2015 1:44 PM LUMBER STACKER OPERATOR Pulse 76 05/05/2015 1:44 PM LUMBER STACKER OPERATOR Temperature 36.7 ??C (98.1 ??F) 04/03/2015 8:00 AM CS T Respiratory Rate 16 05/05/2015 1:44 PM LUMBER STACKER OPERATOR Oxygen Saturation 96% 03/31/2015 3:07 AM LUMBER STACKER OPERATOR Inhaled Oxygen Concentration - - Weight 91.6 kg (202 lb) 05/05/2015 1:44 PM LUMBER STACKER OPERATOR Height 167.6 cm (5' 6 ) 05/05/2015 1:44 PM LUMBER STACKER OPERATOR Body Mass Index 32.6 05/05/2015 1:44 PM LUMBER STACKER OPERATOR Plan of Treatment Health Maintenance Due Date [...] W RFLX REFLEXED Routine 04/29/1998 12:00 AM LUMBER STACKER OPERATOR from Last 3 Months or Most Recently Relevant to Health Maintenance Results * HIV-1 HIV-2 ANTIBODIES W RFLX REFLEXED (04/29/1998 12:00 AM LUMBER STACKER OPERATOR) HIV 1/2 EIA Antibody neg [facility] 04/29/1998 Narrative [facility] - 04/29/1998 12:00 AM LUMBER STACKER OPERATOR This external order was created through the Results Console. Historical Provider LAB - CHEMISTRY O RDERABLES [facility] from Last 3 Months or [...] 4:02 PM 03/09/2015 9:06 PM Care Teams Development Mechanic Relationship Specialty Start Date End Date Steve Davis MD [address] [place] [address] PCP - General Family Medicine 03/30/15
--- OUTSIDE RECORDS SUMMARY | 2024-04-29 23:56 | XMS_ITS | Encounter Summary ---
Author Organization [facility] Address [address] [place] [address] Care Team Providers Care Envelope Maker Name Role Phone Steve Davis MD Primary Care Provider [phone] Reason for Visit * Auth/Cert Specialty Diagnoses / Procedures Referred By Contac t Referred To Contact Obstetrics and Gynecology Procedures SECTION EMERGENCY [facility] 6w Mother Baby [address] [place] [address] Referral ID Status Reason Start Date Expiration Date Visits Re quested Visits Authorized [id number] 03/31/2015 09/27/2015 1 Encounter Details Date Type Department Care Team (Latest Contact Info) Description 03/30/2015 7:38 PM CALENDER LET OFF HELPER - 04/03/2015 4:17 PM [facility] Hospital Encounter [facility] 6W MOTHER/BABY [address] [place] [address] Jose Antonio Perez MD [address] [place] [address] Obstetrics Discharge Disposition: Home or Self Care [...] Comments Blood Pressure 156/90 04/03/2015 8:00 AM CALENDER LET OFF HELPER Pulse 83 04/03/2015 8:00 AM CALENDER LET OFF HELPER Temperature 36.7 ??C (98.1 ??F) 04/03/2015 8:00 AM CS T Respiratory Rate 16 04/03/2015 8:00 AM CALENDER LET OFF HELPER Oxygen Saturation 96% 03/31/2015 3:07 AM CALENDER LET OFF HELPER Inhaled Oxygen Concentration - - Weight - [...] Tabor MD - 04/20/2015 1:29 PM CST client insights consultant Discharge Summary 04/20/2015, 1:29 PM Date of Admission: 03/30/2015 Date of Discharge: 04/03/2015 Admission Diagnosis: 30 y.o. at 35w1d with DCDA twins, PTL, preeclampsia without severe features, bipolar disorder Discharge Diagnosis: 30 y.o. s/p section Service: Maternal Medicine Consults: Case Management HPI: Oanh Ortiz is a 30 y.o. at 35w1d; care with [facility]. She presented with increased contractions after [...] for the patient's : Vasile Ortiz September [[id number]] Date of 03/30/2015 Time of : 9:26 PM Sex: Female Weight: 2480 g (5 lb 7.5 oz) (1 min): 7 (5 min): 8 (10 min): Information for the patient's : Cortney Ortiz [[id number]] Date of 03/30/2015 Time of : 9:27 [...] results for input(s): ABORH in the last 99106 hours. Recent Labs Component Name 03/31/15 0519 [...] 4 Grams (4000 mg) / 24 hours. jmzvimpvky-jvkvuzdoscigz-ppghrfji 50-325-40 MG tablet Commonly known as: FIORICET [...] Comments Your discharge diagnosis is delivery delivered [[id number]] No special diet needed Resume your normal [...] 6 weeks. Contact your provider Call your BUTTING SAW OPERATOR if you have questions or concerns, or [...] weeks Darío Tabor MD 04/20/2015 1:29 PM NDER LET OFF HELPER documented in this encounter Discharge Instructions * Discharge Instructions* Nitza Bliss RN - 04/03/2015 1:24 PM CALENDER LET OFF HELPER DELIVERED MOTHER DISCHARGE INSTRUCTIONS Refer to the Booklet given during your stay for more information. Please contact your sustainable landscape architect for the followin. Any burning or itching [...] example: your cell phone and cell phone battery recharger. PLEASE REMEMBER: 1. Always place your infant on his/her back to sleep. 2. Always use a car safety seat when transporting your child. NDER LET OFF HELPER documented in this encounter Medications at Time [...] NICU. Nitza Bliss RN 04/03/2015 4:40 PM NDER LET OFF HELPER * Jose Antonio Perez MD - 04/03/2015 [...] Discharge to home. Jose Antonio Perez MD NDER LET OFF HELPER * Yady Jones RN - 04/03/2015 5:49 AM CST Vital signs stable and assessment within normal limits. Up ad maria elena, voiding without difficulty. Ambulating in hallway. Tolerating regular diet. and bonding well with baby A. Supplementing with formula and pumped breast milk. Baby B in NICU. NDER LET OFF HELPER * Nitza Bliss RN - 04/02/2015 6:08 [...] home. Nitza Bliss RN 04/02/2015 6:10 PM NDER LET OFF HELPER * Jose Antonio Perez MD - 04/02/2015 [...] Continue routine care. Jose Antonio Perez MD NDER LET OFF HELPER * Brooke Sheikh, RIYA - 04/02/2015 6:35 [...] Denies having any dizziness during the night. NDER LET OFF HELPER * Brooke Sheikh, RIYA - 04/01/2015 8:19 [...] Pt and verbalized understanding all information received. NDER LET OFF HELPER * Vivian Lynch RN - 04/01/2015 5:18 [...] baby breast feeds. Bonding well with newborns. NDER LET OFF HELPER * Jose Antonio Perez MD - 04/01/2015 [...] Continue routine care. Jose Antonio Perez MD NDER LET OFF HELPER * Jennifer Meza RN - 04/01/2015 5:51 [...] bonding well. No concerns at this time. NDER LET OFF HELPER * Yola Mueller RN - 03/31/2015 6:42 PM CST VSS. Pt up ad maria elena, voiding on her own. Tolerating regular diet. Pain is controlled with medication.Breast feeding well. To NICU to [place] with other . NDER LET OFF HELPER * Jose Antonio Perez MD - 03/31/2015 [...] Continue routine care. Jose Antonio Perez MD NDER LET OFF HELPER * Jennifer Meza RN - 03/31/2015 6:24 [...] night. Will continue to monitor. No concerns. NDER LET OFF HELPER documented in this encounter H&P Notes * Elmira Ellis MD - 03/30/2015 7:46 PM CST PGY-1 Obstetric H&P CC: contractions HPI: 29 y.o. at 35w1d weeks gestation. Dating: by Last Menstrual Period and date of implantation (IVF). Estimated Date of Delivery: 05/03/15 Care: With [place] [facility] Patient's is complicated by: Patient Active [...] Start Date End Date Taking? Authorizing Provider rhbynxxypl-lvovttgvxcyso-qofliyzt (FIORICET) 50-325-40 MG tablet Take 1 Tab [...] this 6. H/o depression- without meds, stable NDER LET OFF HELPER Associated attestation - Elena Wei MD - 03/30/2015 10:06 PM CALENDER LET OFF HELPER Attending Admit Note: Obstetric H and P [...] this encounter Consult Notes * Cas Josette, PORTUGUESE TUTOR - 04/01/2015 4:14 PM CSTAssociated Order(s): IP CONSULT TO CASE MANAGEMENT BUTTING SAW OPERATOR CASE MANAGEMENT PSYCHOSOCIAL ASSESSMENT OB History Para [...] has a psych, that she sees in [place] and will call him if she starts to experience signs of depression. Pt is willing to return to [facility] if needed. 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 NDER LET OFF HELPER documented in this encounter Nursing Notes * [...] any questions. Le Hoffman RN, BSN, IBCLC NDER LET OFF HELPER * Le Hoffman RN - 04/02/2015 3:47 PM CST Oanh continues to breastfeed, pump, and supplement. She states that her baby girl 1 is latchingwell with nipple shield. She started supplementing with formula after each per squirrel man order for weight loss. She pumps after each feed and sends breastmilk to NICU to supplement baby girl 2. Discussed milk supply/maintenance and encouraged to continue latching baby first prior to supplementing. She pumps at this time and obtains about 10ml colostrum. Discussed plan at home forpumping and . Encouraged her to call as needed. Le Hoffman RN, BSN, IBCLC NDER LET OFF HELPER * Le King RN - 03/31/2015 9:45 [...] questions tonight. Le King RN, MSN, IBCLC NDER LET OFF HELPER * Funmilayo Malik RN - 03/31/2015 5:45 [...] as needed. Funmilayo Malik RNC, BSN, IBCLC NDER LET OFF HELPER documented in this encounter OR Notes * Operative - Primo Melendez MD - 03/30/2015 9:59 PM CST Operative Report for Section Oanh Ortiz [id number] 03/30/2015 Preoperative Diagnosis:29 y.o. Intrauterine 35w1d, non-reassuring tracing, labor, dichorionic/diamniotic twin gestation, preeclampsia without severe features Postoperative Diagnosis: same Procedure(s): Primary Section via Pfannensteil Incision Surgeon: Elena Wei MD Vice President Biostatistics: Primo Melendez MD; Clara Saucedo MD Type of anesthesia: Epidural with Duramorph and General Complications: laceration of bregma (2cm superficial) EBL: 1400 cc IV Fluids: 1600 cc Urine OutPut: 100 cc clear yellow urine at the end of the procedure. Drains: Villegas catheter Packing/Dressing: alison pad and sterile dressing(s) applied Findings: Information for the patient's : Diana Baby Girl Oanh [[id number]] Date of 03/30/2015 Time of : 9:26 PM Sex: Female Weight: 2480 g (5 lb 7.5 oz) (1 min): 7 (5 min): 8 (10 min): Information for the patient's : Brandi rOtiz Girl Danny Hugo [[id number]] Date of 03/30/2015 Time of : 9:27 [...] The was handed off to the waiting [facility] delivery team. The second twin was then [...] for the entire procedure. Primo Melendez MD NDER LET OFF HELPER Associated attestation - Elena Wei MD - 03/30/2015 10:47 PM CALENDER LET OFF HELPER I agree with the resident's documentation, with [...] Patient Information Patient Name Sex Oanh Ortiz ([id number]) Female 1985 OB History Para Term AB SAB TAB Ectopic Multiple Living 3 2 1 1 1 0 1 1 3 # Outcome Date GA Labor/2nd Weight Sex Delivery Anes PTL Lv Name A1 A5 Location 3A 03/30/15 35w1d 2480 g (5 lb 7.5 oz) F , E Epidural,General Y 7 8 [facility] 3B 03/30/15 35w1d 2350 g (5 lb 2.9 oz) F , E Epidural,General Y 3 9 [facility] 2 Term 08/19/12 39w0d 3685 g (8 [...] -9(L) 25 4 Diana Baby Girl Oanh [[id number]] Patient Information Patient Name Sex Brandi Ortiz ([id number]) Female 03/30/2015 Procedures No data filed Group [...] X-Ray? MD Notif? Counted By Verified By Hardin/Sharps/Sponges Closure of a Cavity within a Cavity Yes No Yes Eliazar Austin Madonna I., RN Instruments/Hardin/Sharps/Sponges Initial / Baseline Yes No Yes Eliazar Austin Germaine C, RN performed at 2119 Instruments/Hardin/Sharps/Sponges Beginning of Wound Closure Yes No Yes Eliazar Austin MadonnaI., RN Hardin/Sharps/Sponges Skin Closure / End of Procedure Yes [...] Rate: 2 Muscle Tone: 1 Total: 8 [place] Stabilization Equipment Checked by: Tati De Paz MD Vigorous at ? (Heart rate greater than 100, normal respirations and normal muscle tone): Yes Suction Method: Bulb Secretions (Amount in Comment): Clear, Thick Requires more than warming, stimulation, and suction?: No Intubation Procedure: Thermoregulation Support: Cap, Overhead Warmer, Warm Blankets Description of Baby: Cord/Gases Vessels: 3 Vessels Complications: None Gases Sent: Yes, Venous, Arterial [place] Feeding/Elimination Mother's Feeding Choice for this Stay: Human Milk and Formula Voided in Delivery Room?: Yes Stooled in Delivery Room?: No Delivering Clinician No data filed Specifics Length Weight HC Gestational Age Delivery Method 19.09 (48.5 cm) 2480 g (5 lb 7.5 oz) 12.99 (33 cm) 35 1/7 weeks , Emergent 1 minute 5 minutes 7 8 Dinaa Baby Girl Danny Hugo [[id number]] Patient Information Patient Name Sex Brandi Ortiz 2 Oanh ([id number]) Female 03/30/2015 Procedures No data filed Group [...] Correct? X-Ray? Notif? Counted By Verified By Hardin/Sharps/Sponges Closure of a Cavity within a Cavity Yes No Yes Eliazar Austin Madonna I., RN Instruments/Hardin/Sharps/Sponges Initial / Baseline Yes No Yes Eliazar Austin Germaine C, RN performed at 2120 Instruments/Hardin/Sharps/Sponges Beginning of Wound Closure Yes No Yes Eliazar Austin MadonnaI., RN Hardin/Sharps/Sponges Skin Closure / End of Procedure Yes [...] Rate: 2 Muscle Tone: 2 Total: 9 [place] Stabilization Equipment Checked by: chris Vigorous at [...] Emergent 1 minute 5 minutes 3 9 NDER LET OFF HELPER documented in this encounter Plan of Treatment Not on file documented as of this encounter Procedures Procedure Name Priority Date/Time Associated Diagnosis Comments LAB RESULTS ORDER 04/04/2015 9:5 6 AM CALENDER LET OFF HELPER HGB HCT PANEL AM Draw 03/31/2015 5:19 AM CALENDER LET OFF HELPER PATHOLOGY TISSUE EXAM (STL) Routine 03/30/2015 9:52 PM CALENDER LET OFF HELPER Diagnosis unknown BLOOD GASES CORD KASEY (ISTAT) Routine 03/30/2015 9:51 PM CALENDER LET OFF HELPER BLOOD GASES CORD ART (ISTAT) Routine 03/30/2015 9:47 PM CALENDER LET OFF HELPER BLOOD GASES CORD KASEY (ISTAT) Routine 03/30/2015 9:43 PM CALENDER LET OFF HELPER BLOOD GASES CORD ART (ISTAT) Routine 03/30/2015 9:38 PM CALENDER LET OFF HELPER CBC W AUTO DIFFERENTIAL STAT 03/30/2015 8:01 PM CALENDER LET OFF HELPER SECTION (EMERGENCY) Case Notes documented in this encounter Results * LAB RESULTS ORDER (04/04/2015 9:56 AM CALENDER LET OFF HELPER) Narrative 04/04/2015 9:56 AM CALENDER LET OFF HELPER Ordered by an unspecified provider. Scanned Document LAB - THERAPEUTIC DR BERMUDEZ MONITORING ORDERABLES * (ABNORMAL) HGB HCT PANEL (03/31/2015 5:19 AM CALENDER LET OFF HELPER) Hemoglobin 7.7(L) 12.0 - 15.6 gm/dL 03/31/2015 6:03 AM CALENDER LET OFF HELPER [facility] Hematocrit 23.4(L) 35.9 - 45.5 % 03/31/2015 6:03 AM CALENDER LET OFF HELPER [facility] Blood BLOOD SPECIMEN / Unknown Lab Venipuncture / Unknown 03/31/2015 5:19 AM CALENDER LET OFF HELPER 03/31/2015 5:49 AM CALENDER LET OFF HELPER Primo Melendez MD LAB - HEMATOLOGY ORD ERABLES [facility] [address] [place] [address] * GROSS + MICRO EXAM (STL) (03/30/2015 9:52 PM CALENDER LET OFF HELPER) Case Report Surgical Pathology Report ? Case: [id number] ? Authorizing Provider: ??Elena Wei MD ?Collected: ? 03/30/2015 09:52 PM ? Ordering Location: ? [facility] 5 LDR ? Received: ?03/31/2015 07:54 AM ? Pathologist: ? Arlen Newell MD ? Specimen: ?Placenta 3rd Trimester ? 04/04/2015 3:23 PM CALENDER LET OFF HELPER [facility] Final Diagnosis 1. Twin placenta: -- Dichorionic, diamniotic twin placenta 2. Placenta A with one cord clamp: -- Third trimester placenta, 640 grams -- Three-vessel umbilical cord with no pathologic diagnosis -- Chorioamniotic membranes with no pathologic diagnosis 3. Placenta B with two cord clamps: -- Three-vessel umbilical cord with no pathologic diagnosis -- Acute chorioamnionitis, mild MM/kaylee 04/04/2015 3:23 PM [facility] Clinical History Preeclampsia without severe features, twin gestation. 04/04/2015 3:23 PM CALENDER LET OFF HELPER [facility] Gross Description Received in formalin [...] are no lesions or masses grossly identified. Customs Agent sections are submitted as follows: A1 - Membranes and umbilical cord placenta A A2 - surface placenta A A3 - Maternal surface placenta A A4 - Membranes and umbilical cord placenta B A5 - and maternal surface placenta B A6 - Maternal surface placenta B DYT/kunal 04/04/2015 3:23 PM CALENDER LET OFF HELPER [facility] Microscopic Description Sections of the [...] villitis or infarction. ANA/kaylee 04/04/2015 3:23 PM CALENDER LET OFF HELPER [facility] Pathology/Cytolo gy ENTIRE PLACENTA / Unknown 03/30/2015 9:52 PM CALENDER LET OFF HELPER 03/31/2015 7:54 AM CALENDER LET OFF HELPER Elena Wei MD LAB - PATHOLOGY/CYTO LOGY ORDERABLES Performing Organization Address [facility] Co de Phone Number [facility] [address] [place], [place] [id number] * (ABNORMAL) BLOOD GASES CORD KASEY (ISTAT) (03/30/2015 9:51 PM CALENDER LET OFF HELPER) pH Cord Venous POCT 7.30 7.28 - 7.40 pH 03/31/2015 5:57 AM CALENDER LET OFF HELPER [facility] pCO2 Cord Venous POCT 48(H) 35 - 45 mmHg 03/31/2015 5:57 AM CALENDER LET OFF HELPER [facility] pO2 Cord Venous POCT 26 22 - 33 mmHg 03/31/2015 5:57 AM CALENDER LET OFF HELPER [facility] HCO3 Cord Arterial POCT 24 22 - 24 mmol/L 03/31/2015 5:57 AM CALENDER LET OFF HELPER [facility] BE Cord Venous POCT Calc -3 -6 - 2 mmol/L 03/31/2015 5:57 AM CALENDER LET OFF HELPER [facility] TCO2 Cord Venous POCT 25 22 - 30 mmol/L 03/31/2015 5:57 AM CALENDER LET OFF HELPER [facility] O2 Saturation % Cord Venous Calc POCT 40 % 03/31/2015 5:57 AM CALENDER LET OFF HELPER [facility] Site CORD KASEY 03/31/2015 5:57 AM CALENDER LET OFF HELPER [facility] Sample iSTAT CORD V 03/31/2015 5:57 AM CALENDER LET OFF HELPER [facility] Blood CORD BLOOD SPECIMEN / Unknown 03/30/2015 9:51 PM CALENDER LET OFF HELPER 03/31/2015 5:52 AM CALENDER LET OFF HELPER Narrative [facility] - 03/31/2015 5:57 AM CALENDER LET OFF HELPER Twin A Jose Antonio Perez MD LAB - POINT OF CARE ORDERABLES [facility] [address] [place] [id number] * (ABNORMAL) BLOOD GASES CORD ART (ISTAT) (03/30/2015 9:47 PM CALENDER LET OFF HELPER) pH Cord Arterial POCT 7.22 7.20 - 7.34 pH 03/31/2015 5:58 AM CALENDER LET OFF HELPER [facility] pCO2 Cord Arterial POCT 59.6(H) 45 - 55 mmHg 03/31/2015 5:58 AM [facility] pO2 Cord Arterial POCT 21 12 - 25 mmHg 03/31/2015 5:58 AM [facility] HCO3 Cord Arterial POCT 24.1 15 - 29 mmol/L 03/31/2015 5:58 AM [facility] BE Cord Arterial POCT -5(L) -2.9 - 8.3 mmol/L 03/31/2015 5:58 AM [facility] TCO2 Cord Arterial POCT 26 mmol/L 03/31/2015 5:58 AM [facility] O2 Saturation Cord Art % Calc POCT 25 % 03/31/2015 5:58 AM [facility] Site CORD ART 03/31/2015 5:58 AM [facility] Sample iSTAT CORD A 03/31/2015 5:58 AM [facility] Blood CORD BLOOD SPECIMEN / Unknown 03/30/2015 9:47 PM CALENDER LET OFF HELPER 03/31/2015 5:51 AM CALENDER LET OFF HELPER Narrative [facility] - 03/31/2015 5:58 AM CALENDER LET OFF HELPER Twin A Jose Antonio Perez MD LAB - POINT OF CARE ORDERABLES Performing Organization Address City/State/[facility] Co de Phone Number [facility] [address] [place] [address] * (ABNORMAL) BLOOD GASES CORD KASEY (ISTAT) (03/30/2015 9:43 PM CALENDER LET OFF HELPER) pH Cord Venous POCT 7.16(L) 7.28 - 7.40 pH 03/30/2015 10:27 PM [facility] pCO2 Cord Venous POCT 62(H) 35 - 45 mmHg 03/30/2015 10:27 PM [facility] pO2 Cord Venous POCT 12(L) 22 - 33 mmHg 03/30/2015 10:27 PM [facility] HCO3 Cord Arterial POCT 22 22 - 24 mmol/L 03/30/2015 10:27 PM [facility] BE Cord Venous POCT Calc -8(L) -6 - 2 mmol/L 03/30/2015 10:27 PM [facility] TCO2 Cord Venous POCT 24 22 - 30 mmol/L 03/30/2015 10:27 PM [facility] O2 Saturation % Cord Venous Calc POCT 8 % 03/30/2015 10:27 PM [facility] Site CORD KASEY 03/30/2015 10:27 PM [facility] Sample iSTAT CORD V 03/30/2015 10:27 PM [facility] Blood CORD BLOOD SPECIMEN / Unknown 03/30/2015 9:43 PM CALENDER LET OFF HELPER 03/30/2015 10:27 PM CALENDER LET OFF HELPER Jose Antonio Perez MD LAB - POINT OF CARE ORDERABLES [facility] [address] [place] [address] * (ABNORMAL) BLOOD GASES CORD ART (ISTAT) (03/30/2015 9:38 PM CALENDER LET OFF HELPER) pH Cord Arterial POCT 7.09(L) 7.20 - 7.34 pH 03/30/2015 10:27 PM [facility] pCO2 Cord Arterial POCT 75.9(HH) 45 - 55 mmHg 03/30/2015 10:27 PM [facility] pO2 Cord Arterial POCT 7(L) 12 - 25 mmHg 03/30/2015 10:27 PM [facility] HCO3 Cord Arterial POCT 22.9 15 - 29 mmol/L 03/30/2015 10:27 PM [facility] BE Cord Arterial POCT -9(L) -2.9 - 8.3 mmol/L 03/30/2015 10:27 PM [facility] TCO2 Cord Arterial POCT 25 mmol/L 03/30/2015 10:27 PM [facility] O2 Saturation Cord Art % Calc POCT 4 % 03/30/2015 10:27 PM [facility] Site CORD ART 03/30/2015 10:27 PM [facility] Sample iSTAT CORD A 03/30/2015 10:27 PM [facility] Blood CORD BLOOD SPECIMEN / Unknown 03/30/2015 9:38 PM CALENDER LET OFF HELPER 03/30/2015 10:27 PM CALENDER LET OFF HELPER Jose Antonio Perez MD LAB - POINT OF CARE ORDERABLES [facility] [address] [place] [address] * (ABNORMAL) CBC W AUTO DIFFERENTIAL (03/30/2015 8:01 PM [facility]) [facility] Signature WBC 12.4(H) 4.4 - 10.7 x10^9/L 03/30/2015 8:10 PM [facility] WBC Corrected x10^9/L 03/30/2015 8:10 PM [facility] RBC 3.99 3.80 - 5.20 x10^12/L 03/30/2015 8:10 PM [facility] Hemoglobin 10.6(L) 12.0 - 15.6 gm/dL 03/30/2015 8:10 PM [facility] Hematocrit 32.1(L) 35.9 - 45.5 % 03/30/2015 8:10 PM [facility] MCV 80.5(L) 80.7 - 98.3 fl 03/30/2015 8:10 PM [facility] MCH 26.6(L) 26.7 - 34.0 pg 03/30/2015 8:10 PM [facility] MCHC 33.0 30.8 - 35.9 gm/dL 03/30/2015 8:10 PM [facility] Platelet Count 173 153 - 416 x10^9/L 03/30/2015 8:10 PM [facility] RDW-CV 18.0(H) 12.1 - 14.9 % 03/30/2015 8:10 PM [facility] MPV 11.3 9.4 - 12.9 fl 03/30/2015 8:10 PM [facility] Neutrophils % 78.7(H) 44.0 - 73.0 % 03/30/2015 8:10 PM [facility] Lymphocytes % 13.9(L) 20.0 - 43.0 % 03/30/2015 8:10 PM [facility] Monocytes % 6.9 5.0 - 13.0 % 03/30/2015 8:10 PM [facility] Eosinophils % 0.1 0.0 - 6.0 % 03/30/2015 8:10 PM [facility] Basophils % 0.1 0.0 - 2.0 % 03/30/2015 8:10 PM [facility] Immature Granulocytes 0.3 0 - 1 % 03/30/2015 8:10 PM CALENDER LET OFF HELPER [facility] Neutrophil Absolute 9.74(H) 2.01 - 7.14 x10^9/L 03/30/2015 8:10 PM CALENDER LET OFF HELPER [facility] Lymphocytes Absolute 1.72 1.07 - 3.94 x10^9/L 03/30/2015 8:10 PM CALENDER LET OFF HELPER [facility] Monocytes Absolute 0.86 0.26 - 1.07 x10^9/L 03/30/2015 8:10 PM CALENDER LET OFF HELPER [facility] Eosinophils Absolute 0.01 0 - 0.47 x10^9/L 03/30/2015 8:10 PM CALENDER LET OFF HELPER [facility] Basophils Absolute 0.01 0 - 0.08 x10^9/L 03/30/2015 8:10 PM [facility] Immature Granulocytes Absolute 0.04 0.00 - 0.06 x10^9/L 03/30/2015 8:10 PM [facility] Blood BLOOD SPECIMEN / Unknown Venipuncture / Unknown 03/30/2015 8:01 PM CALENDER LET OFF HELPER 03/30/2015 8:05 PM CALENDER LET OFF HELPER Jose Antonio Perez MD LAB - HEMATOLOGY ORD ERABLES Performing Organization Address City/State/[facility] Co de Phone Number [facility] [address] [place] [address] documented in this encounter Visit [...] at 2130 $ Given 03/31/2015 9:17 PM CALENDER LET OFF HELPER 2 g 100 mL/hr $ Given 03/31/2015 1:25 PM CALENDER LET OFF HELPER 2 g 100 mL/hr $ Given 03/31/2015 5:06 AM CALENDER LET OFF HELPER 2 g 100 mL/hr dextrose 5% and lactated ringers infusion at 125 mL/hr, Intravenous, CONTINUOUS, Starting on Aurea 03/31/15 at 0200, Until 04/03/15 at 1718, May discontinue IV when taking PO and afebrile., $ New Bag/Syringe 03/31/2015 1:58 AM CALENDER LET OFF HELPER 125 mL/hr 125 mL/hr docusate sodium (COLACE) capsule 100 mg 100 mg, Oral, 2 TIMES DAILY, First dose on Aurea 03/31/15 at 0200, Until Discontinued, $ Given 04/03/2015 10:35 AM CALENDER LET OFF HELPER 100 mg $ Given 04/02/2015 9:23 PM CALENDER LET OFF HELPER 100 mg $ Given 04/02/2015 7:56 AM CALENDER LET OFF HELPER 100 mg enoxaparin (LOVENOX) injection 40 mg 40 mg, Subcutaneous, DAILY AT 1000, First dose on Aurea 03/31/15 at 1000, Until Discontinued, (for prefilled syringes) do not expel air bubble from the syringe prior to the injection Remind Patient to not rub injection site. Could cause hematoma., $ Given 04/03/2015 10:35 AM CALENDER LET OFF HELPER 40 mg Abdominal Tissue $ Given 04/02/2015 9:54 AM CALENDER LET OFF HELPER 40 mg Ab dominal Tissue $ Given 04/01/2015 11:41 AM CALENDER LET OFF HELPER 40 mg A bdominal Tissue ibuprofen (MOTRIN) tablet 600 mg 600 mg, Oral, EVERY 6 HOURS, First dose on Aurea 03/31/15 at 0200, Until Discontinued, Maximum allowable amount = 3200 mg / 24 hours., $ Given 04/03/2015 12:10 PM CALENDER LET OFF HELPER 600 mg $ Given 04/03/2015 6:24 AM CALENDER LET OFF HELPER 600 mg $ Given 04/02/2015 11:57 PM CALENDER LET OFF HELPER 600 mg iron polysaccharides (NIFEREX 150) capsule 150 mg 150 mg, Oral, DAILY, First dose on Aurea 03/31/15 at 0900, Until Discontinued, $ Given 04/01/2015 9:07 AM CALENDER LET OFF HELPER 150 mg iron polysaccharides (NIFEREX 150) capsule 150 mg 150 mg, Oral, 2 TIMES DAILY WITH MEALS, First dose (after last modification) on Sat04/01/15 at 1800, Until Discontinued, $ Given 04/03/2015 10:35 AM CALENDER LET OFF HELPER 150 mg $ Given 04/02/2015 6:24 PM CALENDER LET OFF HELPER 150 mg $ Given 04/02/2015 7:56 AM CALENDER LET OFF HELPER 150 mg iron sucrose (VENOFER) injection 200 mg 200 mg, Intravenous, DAILY, 3 doses, First dose on Aurea 03/31/15 at 1000, Last dose on 04/02/15 at 0900, May administer up to 200 mg of undiluted solution IVP slowly over 5 minutes. Doses greater than 200 mg must be diluted to an appropriate volume and administered as an infusion. $ Given 03/31/2015 10:22 AM CALENDER LET OFF HELPER 200 mg ketorolac (TORADOL) injection 30 mg 30 mg, Intravenous, EVERY 6 HOURS, 4 doses, First dose on Sat03/30/15 at 2230, Last dose on Sat03/31/15 at 1900, For Pain - If not given intra-op. PRN if not administered in the OR. $ Given 03/31/2015 8:15 PM CALENDER LET OFF HELPER 30 mg $ Given 03/31/2015 1:25 PM CALENDER LET OFF HELPER 30 mg $ Given 03/31/2015 6:44 AM CALENDER LET OFF HELPER 30 mg lanolin (LANOLIN) ointment Topical, PRN, Sore or cracked nipples., Starting on Sat03/31/15 at 0148, Until [place] 04/03/15 at 1718, Apply purified Lanolin to sore or cracked nipples, if needed. May keep at bedside., $ Given 04/02/2015 7:56 AM CALENDER LET OFF HELPER morphine injection 2 mg 2 mg, Intravenous, EVERY 1 HOUR PRN, Moderate Pain, Starting on Sat03/30/15 at 2142, Until 04/03/15 at 1718 $ Given 03/31/2015 4:22 AM CALENDER LET OFF HELPER 2 mg oxyCODONE-acetaminophen (PERCOCET) 5-325 MG tablet 1-2 Tab 1-2 tablet, Oral, EVERY 4 HOURS PRN, Moderate Pain, Severe Pain, Starting on Sat03/30/15 at 2309, Until 04/03/15 at 1718, Maximum allowable Acetaminophen amount = 4 Grams (4000 mg) / 24 hours., $ Given 04/03/2015 6:33 AM CALENDER LET OFF HELPER 1 tablet $ Given 04/02/2015 11:58 PM CALENDER LET OFF HELPER 1 tablet $ Given 04/02/2015 4:59 PM CALENDER LET OFF HELPER 1 tablet vitamin with iron tablet 1 Tab 1 tablet, Oral, DAILY, First dose on Aurea 03/31/15 at 0900, Until Discontinued, $ Given 04/03/2015 10:35 AM CALENDER LET OFF HELPER 1 tablet $ Given 04/02/2015 7:56 AM CALENDER LET OFF HELPER 1 tablet $ Given 04/01/2015 9:06 AM CALENDER LET OFF HELPER 1 tablet simethicone (MYLICON) chew tablet 160 mg 160 mg, Oral, QID PRN (after meals and at bedtime), Gas Pain, Starting on Aurea 03/31/15 at 0148, Until 04/03/15 at 1718, $ Given 04/01/2015 4:03 PM CALENDER LET OFF HELPER 160 mg $ Given 04/01/2015 12:07 AM CALENDER LET OFF HELPER 160 mg documented in this encounter Active and Recently Administered Medications Times are shown in CALENDER LET OFF HELPER. Scheduled Medication Order 04/01/2015 04/02/2015 04/03/2015 docusate [...] RIYA) documented in this encounter Care Teams Envelope Maker Relationship Specialty Start Date End Date Steve Davis MD [address] [facility]EC[facility] [address] [place] [address] PCP - General Family Medicine 03/30/15 documented as of this encounter
--- OUTSIDE RECORDS SUMMARY | 2024-04-29 23:56 | XMS_ITS | Encounter Summary ---
Author Organization [facility] Address [address] [place] [address] Care Team Providers Care Manufacturing Development Engineer Name Role Phone Steve Davis MD Primary Care Provider [phone] Reason for Visit * Reason Comments Rupture of Membranes * Auth/Cert - Closed Specialty Diagnoses / Procedures Referred By Contac t Referred To Contact Obstetrics and Gynecology [facility] 5 [facility] [address] [place] [address] Referral ID Status Reason Start Date Expiration Date Visits Re quested Visits Authorized [id number] Closed 03/11/2015 09/07/2015 1 Encounter Details Date Type Department Care Team (Latest Contact Info) Description 03/07/2015 1:56 PM ORNAMENTAL METAL WORKER HELPER - 03/07/2015 7:29 PM ORNAMENTAL METAL WORKER HELPER Hospital Encounter [facility] [address] [place] [address] Marciano Tamez MD [address] [id number] Obstetrics Discharge Disposition: Home or Self Care [...] Comments Blood Pressure 133/73 03/07/2015 5:08 PM ORNAMENTAL METAL WORKER HELPER Pulse - - Temperature 36.8 ??C (98.3 ??F) 03/07/2015 2:15 PM CS T Respiratory Rate 18 03/07/2015 3:13 PM ORNAMENTAL METAL WORKER HELPER Oxygen Saturation 97% 03/07/2015 2:18 PM ORNAMENTAL METAL WORKER HELPER Inhaled Oxygen Concentration - - Weight 105.2 kg (232 lb) 03/07/2015 2:17 PM ORNAMENTAL METAL WORKER HELPER Height 167.6 cm (5' 6 ) 03/07/2015 2:17 PM ORNAMENTAL METAL WORKER HELPER Body Mass Index 37.45 03/07/2015 2:17 PM ORNAMENTAL METAL WORKER HELPER documented in this encounter Discharge Instructions * Discharge Instructions* Teresita Guzmán RN - 03/07/2015 7:26 PM ORNAMENTAL METAL WORKER HELPER [facility] [phone] MENTAL METAL WORKER HELPER documented in this encounter Medications at [...] form signed and witnessed by Dr. Zabala. MENTAL METAL WORKER HELPER * Teresita Guzmán RN - 03/07/2015 5:45 [...] Gwen Anand aware and at pt bedside. MENTAL METAL WORKER HELPER * Teresita Guzmán RN - 03/07/2015 4:00 [...] and to bedside to speak with pt. MENTAL METAL WORKER HELPER documented in this encounter H&P Notes [...] Yellow, Dark Yellow Clarity UA Cloudy Specific [place] UA 1.010 1.005-1.030 pH UA 7.0 5.0-8.0 [...] 44.0-73.0 % Lymph 15.1 (L) 20.0-43.0 % [place] 6.7 5.0-13.0 % Eos 0.7 0.0-6.0 % Baso 0.1 0.0-2.0 % Immature Grans 0.6 0-1 % Neutro Abs 8.02 (H) 2.01-7.14 x10^9/L Lymph Abs 1.58 1.07-3.94 x10^9/L [place] Abs 0.70 0.26-1.07 x10^9/L Eosin Abs 0.07 [...] precautions Yessi Ashley MD 03/07/2015 6:45 PM MENTAL METAL WORKER HELPER Associated attestation - Tigist Pathak MD - 03/09/2015 2:45 AM ORNAMENTAL METAL WORKER HELPER R4 High Risk Chief Note I have [...] home with prescription. To follow up in [facility] office on . Tigist Pathak MD 03/09/2015 2:43 AM documented in this encounter Plan of Treatment Not on file documented as of this encounter Procedures Procedure Name Priority Date/Time Associated Diagnosis Comments CBC W AUTO DIFFERENTIAL STAT 03/07/2015 5:06 PM ORNAMENTAL METAL WORKER HELPER Proximal weakness of limb COMPREHENSIVE METABOLIC PANEL STAT 03/07/2015 5:06 PM ORNAMENTAL METAL WORKER HELPER Proximal weakness of limb PHOSPHORUS BLOOD Add on 03/07/2015 5:06 PM ORNAMENTAL METAL WORKER HELPER Dichorionic diamniotic twin (HCC) MAGNESIUM BLOOD Add on 03/07/2015 5:06 PM ORNAMENTAL METAL WORKER HELPER Dichorionic diamniotic twin (HCC) URINALYSIS REFLEX MICROSCOPIC REFLEX CULTURE Routine 03/07/2015 3:52 PM ORNAMENTAL METAL WORKER HELPER Supervision of high risk in third trimester (HCC) CULTURE URINE Routine 03/07/2015 3:52 PM ORNAMENTAL METAL WORKER HELPER Supervision of high risk in third trimester (HCC) GLUCOSE PROTEIN KETONE URINE - POINT OF CAR Routine 03/07/2015 1:56 PM ORNAMENTAL METAL WORKER HELPER documented in this encounter Results * MAGNESIUM BLOOD (03/07/2015 5:06 PM ORNAMENTAL METAL WORKER HELPER) Magnesium 1.7 1.6 - 2.6 mg/dL 03/07/2015 6:50 PM ORNAMENTAL METAL WORKER HELPER [facility] Blood BLOOD SPECIMEN / Unknown Venipuncture / Unknown 03/07/2015 5:06 PM ORNAMENTAL METAL WORKER HELPER 03/07/2015 6:33 PM ORNAMENTAL METAL WORKER HELPER Yessi Ashley MD LAB - CHEMISTRY MYLESMonica FERNANDESPAIGE Performing Organization Address [facility]/ZIP Co de Phone Number [facility] [address] [place], [place] [phone] * PHOSPHORUS BLOOD (03/07/2015 5:06 PM ORNAMENTAL METAL WORKER HELPER) Pathologist [facility] Phosphorus 2.7 2.5 - 4.9 mg/dL 03/07/2015 6:50 PM [facility] Blood BLOOD SPECIMEN / Unknown Venipuncture / Unknown 03/07/2015 5:06 PM ORNAMENTAL METAL WORKER HELPER 03/07/2015 6:33 PM ORNAMENTAL METAL WORKER HELPER Yessi Ashley MD LAB - CHEMISTRY CJ DOMPAIGE Performing Organization Address [facility] Co de Phone Number [facility] [address] [place] [phone] * (ABNORMAL) COMPREHENSIVE METABOLIC PANEL (03/07/2015 5:06 PM ORNAMENTAL METAL WORKER HELPER) [facility] Glucose 80 74 - 106 mg/dL 03/07/2015 5:34 PM [facility] Sodium 137 136 - 145 mmol/L 03/07/2015 5:34 PM [facility] Potassium 2.8(L) 3.5 - 5.1 mmol/L 03/07/2015 5:34 PM [facility] Chloride 107 98 - 107 mmol/L 03/07/2015 5:34 PM [facility] CO2 23 22 - 31 mmol/L 03/07/2015 5:34 PM [facility] Calcium 8.7 8.5 - 10.1 mg/dL 03/07/2015 5:34 PM [facility] Anion Gap 7 5 - 20 mmol/L 03/07/2015 5:34 PM [facility] BUN 2(L) 7 - 21 mg/dL 03/07/2015 5:34 PM [facility] Creatinine 0.49(L) 0.50 - 1.30 mg/dL 03/07/2015 5:34 PM [facility] Alkaline Phosphatase 141(H) 38 - 126 U/L 03/07/2015 5:34 PM [facility] ALT 21 12 - 78 U/L 03/07/2015 5:34 PM [facility] AST 28 5 - 40 U/L 03/07/2015 5:34 PM [facility] Protein Total 6.1(L) 6.4 - 8.2 gm/dL 03/07/2015 5:34 PM [facility] Albumin 2.4(L) 3.4 - 5.0 gm/dL 03/07/2015 5:34 PM [facility] Bilirubin Total 0.3 0.2 - 1.0 mg/dL 03/07/2015 5:34 PM [facility] eGFR by MDRD >60 >60 mL/min/1.7 3m2 03/07/2015 5:34 PM [facility] eGFR by MDRD >60 >60 mL/min/1.7 3m2 03/07/2015 5:34 PM [facility] Blood BLOOD SPECIMEN / Unknown Venipuncture / Unknown 03/07/2015 5:06 PM ORNAMENTAL METAL WORKER HELPER 03/07/2015 5:12 PM [facility] Juan Carlos Anand MD LAB - CHEMISTRY [facility] Organization Address City/State/ZIP Co de Phone Number [facility] [address] [place] [address] * (ABNORMAL) CBC W AUTO DIFFERENTIAL (03/07/2015 5:06 PM ORNAMENTAL METAL WORKER HELPER) [facility] Signature WBC 10.4 4.4 - 10.7 x10^9/L 03/07/2015 5:19 PM [facility] WBC Corrected x10^9/L 03/07/2015 5:19 PM [facility] RBC 3.76(L) 3.80 - 5.20 x10^12/L 03/07/2015 5:19 PM [facility] Hemoglobin 9.6(L) 12.0 - 15.6 gm/dL 03/07/2015 5:19 PM [facility] Hematocrit 29.2(L) 35.9 - 45.5 % 03/07/2015 5:19 PM [facility] MCV 77.7(L) 80.7 - 98.3 fl 03/07/2015 5:19 PM [facility] MCH 25.5(L) 26.7 - 34.0 pg 03/07/2015 5:19 PM [facility] MCHC 32.9 30.8 - 35.9 gm/dL 03/07/2015 5:19 PM [facility] Platelet Count 185 153 - 416 x10^9/L 03/07/2015 5:19 PM [facility] RDW-CV 13.3 12.1 - 14.9 % 03/07/2015 5:19 PM [facility] MPV 11.8 9.4 - 12.9 fl 03/07/2015 5:19 PM [facility] Neutrophils % 76.8(H) 44.0 - 73.0 % 03/07/2015 5:19 PM [facility] Lymphocytes % 15.1(L) 20.0 - 43.0 % 03/07/2015 5:19 PM [facility] Monocytes % 6.7 5.0 - 13.0 % 03/07/2015 5:19 PM [facility] Eosinophils % 0.7 0.0 - 6.0 % 03/07/2015 5:19 PM [facility] Basophils % 0.1 0.0 - 2.0 % 03/07/2015 5:19 PM [facility] Immature Granulocytes 0.6 0 - 1 % 03/07/2015 5:19 PM [facility] Neutrophil Absolute 8.02(H) 2.01 - 7.14 x10^9/L 03/07/2015 5:19 PM [facility] Lymphocytes Absolute 1.58 1.07 - 3.94 x10^9/L 03/07/2015 5:19 PM [facility] Monocytes Absolute 0.70 0.26 - 1.07 x10^9/L 03/07/2015 5:19 PM [facility] Eosinophils Absolute 0.07 0 - 0.47 x10^9/L 03/07/2015 5:19 PM [facility] Basophils Absolute 0.01 0 - 0.08 x10^9/L 03/07/2015 5:19 PM [facility] Immature Granulocytes Absolute 0.06 0.00 - 0.06 x10^9/L 03/07/2015 5:19 PM [facility] Blood BLOOD SPECIMEN / Unknown Venipuncture / Unknown 03/07/2015 5:06 PM ORNAMENTAL METAL WORKER HELPER 03/07/2015 5:12 PM ORNAMENTAL METAL WORKER HELPER Juan Carlos Anand MD LAB - HEMATOLOGY ORD ERABLES [facility] [address] [place] [address] * CULTURE URINE (03/07/2015 3:52 PM ORNAMENTAL METAL WORKER HELPER) Culture 10,000-50,000 CFU/mL normal urogenital augustine SATURNINO 03/09/2015 8:07 AM ORNAMENTAL METAL WORKER HELPER [facility] Urine URINE SPECIMEN OBTAINED BY CLEAN CATCH PROCEDURE / Unknown Collection / Unknown 03/07/2015 3:52 PM ORNAMENTAL METAL WORKER HELPER 03/07/2015 4:06 PM ORNAMENTAL METAL WORKER HELPER Juan Carlos Anand MD LAB - MICROBIOLOGY O RDERABLES Performing Organization Address City/[facility]/ZIP Co de Phone Number [facility] [address] [place] [address], [facility] [phone] * (ABNORMAL) URINALYSIS ROUTINE W/REFLEX TO CULTURE (03/07/2015 3:52 PM ORNAMENTAL METAL WORKER HELPER) Color UA Yellow Straw, Yellow, Dark Yellow 03/07/2015 4:21 PM [facility] Clarity UA Cloudy 03/07/2015 4:21 PM [facility] Specific [place] UA 1.010 1.005 - 1.030 03/07/2015 4:21 PM [facility] pH UA 7.0 5.0 - 8.0 pH 03/07/2015 4:21 PM [facility] Protein UA Negative Negative 03/07/2015 4:21 PM [facility] Blood UA 2+(A) Negative 03/07/2015 4:21 PM [facility] Leukocyte UA 2+(A) Negative 03/07/2015 4:21 PM ORNAMENTAL METAL WORKER HELPER [facility] Nitrite UA Negative Negative 03/07/2015 4:21 PM ORNAMENTAL METAL WORKER HELPER [facility] Glucose UA Negative Negative 03/07/2015 4:21 PM ORNAMENTAL METAL WORKER HELPER [facility] Ketone UA Negative Negative 03/07/2015 4:21 PM [facility] Bilirubin UA Negative Negative 03/07/2015 4:21 PM [facility] Urobilinogen UA 0.2 0.1 - 1.0 EU/dL 03/07/2015 4:21 PM [facility] WBC UA Auto 5-10(A) 0-2, 2-5 # /hpf 03/07/2015 4:21 PM ORNAMENTAL METAL WORKER HELPER [facility] RBC UA Auto 20-50(A) 0-2, 2-5 # /hpf 03/07/2015 4:21 PM ORNAMENTAL METAL WORKER HELPER [facility] Epithelial Cell UA Auto 5-10(A) 0-2, 2-5 # /hpf 03/07/2015 4:21 PM ORNAMENTAL METAL WORKER HELPER [facility] Bacteria UA Auto 1+(A) None seen 03/07/2015 4:21 PM ORNAMENTAL METAL WORKER HELPER [facility] Reflex Status Culture to follow 03/07/2015 4:21 PM ORNAMENTAL METAL WORKER HELPER [facility] Urine URINE SPECIMEN OBTAINED BY CLEAN CATCH PROCEDURE / Unknown Collection / Unknown 03/07/2015 3:52 PM ORNAMENTAL METAL WORKER HELPER 03/07/2015 4:06 PM ORNAMENTAL METAL WORKER HELPER Juan Carlos Anand MD LAB - URINALYSIS ORD ERABLES Performing Organization Address City/[facility] Co de Phone Number [facility] [address] [place] [address] * GLUCOSE PROTEIN KETONE URINE - POINT OF CAR (03/07/2015 1:56 PM ORNAMENTAL METAL WORKER HELPER) Glucose UA negative Negative [facility] Protein UA 1+ Negative [facility] Ketone UA negative Negative [facility] QC Verified Yes Yes [facility] POC T TESTING Urine specimen (specimen) URINE / Unknown 03/07/2015 1:56 PM ORNAMENTAL METAL WORKER HELPER Juan Carlos Anand MD LAB - POINT OF CARE ORDERABLES Performing Organization Address [facility] Co de Phone Number [facility] [address] [place] [address] documented in this encounter Visit Diagnoses Diagnosis [...] or chew. $ Given 03/07/2015 6:26 PM ORNAMENTAL METAL WORKER HELPER 40 mEq documented in this encounter Active and Recently Administered Medications Times are shown in ORNAMENTAL METAL WORKER HELPER. Scheduled Medication Order 03/05/2015 03/06/2015 03/07/2015 potassium chloride (KLOR-CON M) tablet 40 mEq (COMPLETED) 40 mEq, Oral, ONCE, 1 dose, On 03/07/15 at 1830, Do not crush or chew. 1826 ($ Given - Prov ider: Heide Carter RN) documented in this encounter Care Teams Manufacturing Development Engineer Relationship Specialty Start Date End Date Steve Davis MD [address] [place] [address] PCP - General Family Medicine 11/14/14 03/29/15 documented as of this encounter
--- OUTSIDE RECORDS SUMMARY | 2024-04-29 23:56 | XMS_ITS | Encounter Summary ---
Author Organization [facility] Address [address] [place] [address] Care Team Providers Care Baseball Scout Name Role Phone Steve Davis MD Primary Care Provider [phone] Reason for Visit * Reason Comments Pain Back Contractions Encounter Details Date Type Department Care Team (Latest Contact Info) Description 03/04/2015 5:03 PM SKY CAP - 03/04/2015 10:17 PM SKY CAP Hospital Encounter [facility] [address] [place] [address] Rc Simmons MD [address] [facility] [address] [place] [phone] Discharge Disposition: Home or Self Care Social [...] Comments Blood Pressure 125/86 03/04/2015 5:29 PM SKY CAP Pulse 79 03/04/2015 5:29 PM SKY CAP Temperature 36.9 ??C (98.5 ??F) 03/04/2015 5:29 PM CS T Respiratory Rate 18 03/04/2015 5:29 PM SKY CAP Oxygen Saturation - - Inhaled Oxygen Concentration - - Weight 105.2 kg (232 lb) 03/04/2015 5:29 PM SKY CAP Height 167.6 cm (5' 6 ) 03/04/2015 5:29 PM SKY CAP Body Mass Index 37.45 03/04/2015 5:29 PM SKY CAP documented in this encounter Functional Status Functional [...] Lorena Aldridge RN - 03/04/2015 10:15 PM SKY CAP UNDELIVERED PATIENT DISCHARGE INSTRUCTIONS CALL YOUR DOCTOR [...] nausea,or diarrhea. Important Telephone Number: [facility] [phone] CAP documented in this encounter Medications at Time [...] Estimated Date of Delivery: 05/03/15 Care: With [place] office M/Dr. Tamez Patient's is complicated by: [...] Yellow, Dark Yellow Clarity UA Clear Specific [place] UA 1.009 1.005-1.030 pH UA 7.0 5.0-8.0 [...] 1. Threatened Labor 1. Uterine irritability on [place], patient having abdominal pain that comes and [...] precautions. Darío Tabor MD 03/05/2015 4:16 AM CAP documented in this encounter Plan of Treatment Not on file documented as of this encounter Procedures Procedure Name Priority Date/Time Associated Diagnosis Comments URINALYSIS REFLEX MICROSCOPIC REFLEX CULTURE STAT 03/04/2015 7:25 PM SKY CAP Dichorionic diamniotic twin (HCC) documented in this encounter Results * URINALYSIS ROUTINE W/REFLEX TO CULTURE (03/04/2015 7:25 PM SKY CAP) Color UA Yellow Straw, Yellow, Dark Yellow 03/04/2015 7:33 PM SKY CAP [facility] Clarity UA Clear 03/04/2015 7:33 PM SKY CAP [facility] Specific [place] UA 1.009 1.005 - 1.030 03/04/2015 7:33 PM SKY CAP [facility] pH UA 7.0 5.0 - 8.0 pH 03/04/2015 7:33 PM SKY CAP [facility] Protein UA Negative Negative 03/04/2015 7:33 PM SKY CAP [facility] Blood UA Negative Negative 03/04/2015 7:33 PM SKY CAP [facility] Leukocyte UA Negative Negative 03/04/2015 7:33 PM SKY CAP [facility] Nitrite UA Negative Negative 03/04/2015 7:33 PM SKY CAP [facility] Glucose UA Negative Negative 03/04/2015 7:33 PM SKY CAP [facility] Ketone UA Negative Negative 03/04/2015 7:33 PM SKY CAP [facility] Bilirubin UA Negative Negative 03/04/2015 7:33 PM SKY CAP [facility] Urobilinogen UA 0.2 0.1 - 1.0 EU/dL 03/04/2015 7:33 PM SKY CAP [facility] Reflex Status Culture not indicated 03/04/2015 7:33 PM SKY CAP [facility] Urine URINE SPECIMEN OBTAINED BY CLEAN CATCH PROCEDURE / Unknown Collection / Unknown 03/04/2015 7:25 PM SKY CAP 03/04/2015 7:29 PM SKY CAP Oanh Julian MD LAB - URINALYSIS ORDERABLES [facility] [address] [place] [address] documented in this encounter Visit Diagnoses Diagnosis Dichorionic diamniotic twin (HCC) Twin , antepartum documented in this encounter Administered Medications Inactive Administered Medications - up to 3 most recent administrations Medication Order MAR Action Action Date Dose Rate Site NIFEdipine (PROCARDIA) capsule 10 mg 10 mg, Oral, 3 TIMES DAILY, First dose on Sat03/04/15 at 2100, Until Discontinued $ Given 03/04/2015 7:54 PM SKY CAP 10 mg NIFEdipine (PROCARDIA) capsule ADS Med 1 dose, Starting on Sat03/04/15 at 1949, Until Sat03/04/15 at 1954, Krista Dalton : cabinet override documented in this encounter Active and Recently Administered Medications Times are shown in SKY CAP. Scheduled Medication Order 03/02/2015 03/03/2015 03/04/2015 NIFEdipine (PROCARDIA) capsule 10 mg (CANCELED) 10 mg, Oral, 3 TIMES DAILY, First dose on Sat03/04/15 at 2100, Until Discontinued 1953 ($ Given - Prov ider: Krista Dalton RN) documented in this encounter Care Teams Baseball Scout Relationship Specialty Start Date End Date Steve Davis MD [address] [place] [address] PCP - General Family Medicine 11/14/14 03/29/15 documented as of this encounter
--- OUTSIDE RECORDS SUMMARY | 2024-04-29 23:56 | XMS_ITS | Encounter Summary ---
Author Organization [facility] Address [address] [place], [place] [address] [address] Care Team Providers Care Clinic Licensed Practical Nurse Name Role Phone Steve Davis MD Primary Care Provider [phone] Reason for Visit * Auth/Cert - Closed Specialty Diagnoses / Procedures Referred By Renee t Referred To Contact Referral ID Status Reason Start Date Expiration Date Visits Re quested Visits Authorized [id number] Closed 1 1 Encounter Details Date Type Department Care Team (Latest Contact Info) Description 03/25/2015 2:26 PM PRICK STITCHER - 03/25/2015 3:11 PM PRICK STITCHER Hospital Encounter [facility] 5 L[address] [place] [address] Marciano Tamez MD [address] [address] Obstetrics Discharge Disposition: Home or [...] Comments Blood Pressure 134/64 03/25/2015 3:10 PM PRICK STITCHER Pulse - - Temperature - - Respiratory [...] on filedocumented in this encounter Care Teams Clinic Licensed Practical Nurse Relationship Specialty Start Date End Date Steve Davis MD [address] [place] [address] PCP - General Family Medicine 11/14/14 03/29/15 documented as of this encounter
--- OUTSIDE RECORDS SUMMARY | 2024-04-29 23:56 | XMS_ITS | Encounter Summary ---
Author Organization [facility] Address [address] [place], [place] [address] [address] Care Team Providers Care Well Head Pumper Name Role Phone Steve Davis MD Primary Care Provider [phone] Reason for Visit * Auth/Cert - Closed Specialty Diagnoses / Procedures Referred By Contcarlos a t Referred To Contact Referral ID Status Reason Start Date Expiration Date Visits Re quested Visits Authorized [id number] Closed 1 1 Encounter Details Date Type Department Care Team (Late st Contact Info) Description 03/30/2015 5:25 AM MANDREL PULLER Anesthesia Event [facility] [address] [place] [address] Zachariah Nava MD [address] [place] [id number] Christine Park, PACK WORKER-FUR BLOWING MACHINE ATTENDANT [address] [place], [place] [id number] Anesthesia Record Procedure Summary Procedure Name Responsible Anesthesiologist Anesthesia Start Time Anesthesia Stop Time EPIDURAL BLOCK Zachariah Nava MD 03/30/15 0525 120 06/13 1700 Events [...] Ruffin RN 03/30/15 1750 by Yady Parikh APRN-POTATO CHIP SORTER Epidural Date: 03/30/15; Time : 05; Placed By: [email or web address] 03/30/15 0525 by Christine Park APRN-FUR BLOWING MACHINE ATTENDANT 03/30/15 1700 by Amanda Morgan, RN Urethral [...] this encounter Progress Notes * Gladis Sharif, SUSANA-FUR BLOWING MACHINE ATTENDANT - 03/31/2015 7:49 AM CST ANESTHESIA POSTPROCEDURE [...] filed. ASA/AQI Tracking Events: No value filed. REL PULLER documented in this encounter Procedure Notes * [...] 03/30/2015 5:29 AM Block Performed by: scott REL PULLER documented in this encounter Consult Notes * [...] mouth 3 times daily before meals ??? wefzvfvtsk-pjtuxdesitsdl-ftjbhfcz (FIORICET) 50-325-40 MG tablet Take 1 Tab [...] accepted yes Discussed anesthesia plan with: anesthesiologist. REL PULLER documented in this encounter Plan of Treatment Not on file documented as of this encounter Procedures Procedure Name Priority Date/Time Associated Diagnosis Comments NEURAXIAL BLOCK Routine 03/30/2015 5:39 AM MANDREL PULLER documented in this encounter Results * NEURAXIAL BLOCK (03/30/2015 5:39 AM MANDREL PULLER) Narrative Christine Park, ZARINA - 03/30/2015 5:39 AM MANDREL PULLER Christine Park APRN-CRNA ? 03/30/2015 ??5:39 AM [...] Anesthesia Intra-op Rate Change 03/30/2015 2:21 PM MANDREL PULLER 7 mL/hr $ New Bag/Syringe 03/30/2015 5:31 AM MANDREL PULLER 12 mL/ hr documented in this encounter Care Teams Well Head Pumper Relationship Specialty Start Date End Date Steve Davis MD [address] [employer] [address] [place] [address] PCP - General Family Medicine 03/30/15 documented as of this encounter
--- OUTSIDE RECORDS SUMMARY | 2024-04-29 23:56 | XMS_ITS | Encounter Summary ---
Author Organization [facility] Address [address] [place], [place] [address] [address] Care Team Providers Care Cultured Marble Products Maker Name Role Phone Steve Davis MD Primary Care Provider [phone] Reason for Visit * Radiology Services (Routine) - Closed Specialty Diagnoses / Procedures Referred By Contac t Referred To Contact Cardiology Procedures [id number] Marciano Tamez MD [address] [address] [facility] Cardiology [address] [place] [address] Referral ID Status Reason Start Date Expiration Date Visits Re quested Visits Authorized [id number] Closed 02/16/2015 08/15/2015 1 1 Encounter Details Date Type Department Care Team (Latest Contact Info) Description 02/16/2015 2:00 PM CDT - 02/16/2015 11:59 PM CDT Hospital Encounter [facility] [address] [place] [address] Marciano Tamez MD [address] [employer] [address] [address] Discharge Disposition: Home or Self [...] PM CDT) 02/16/2015 2:19 PM CDT Narrative [facility] CARDIOLOGY - 02/17/2015 11:15 AM CDT Transthoracic Echocardiogram 2D, M-mode, Doppler, and Color Doppler Patient: BROOKE ORTIZ MR number: [id number] Height: 66 in Weight: 225.5 lb BSA: 2.11 m?? Study date: 16-Feb-2015 : 1985 Age: 29 years Gender: Female Race: 2 Referring Physician: ??Marciano Tamez MD Assistant Hvac Mechanic: ??Valerie Thurman BRITTA Reading Physician: ??Savanah Marks, [...] Color Doppler Patient: BROOKE ORTIZ MR number: [id number] Height: 66 in Weight: 225.5 lb BSA: 2.11 m?? Study date: 16-Feb-2015 : 1985 Age: 29 years Gender: Female Race: 2 Referring Physician: Marciano Tamez MD Assistant Hvac Mechanic: Valerie Thurman RDCS Reading Physician: Savanah Marks [...] Tamez MD ECHO ORDERABLES Performing Organization Address City/State/[facility] Co de Phone Number [facility] [address] [place] [address] documented in this encounter Visit Diagnoses Diagnosis Heart murmur- Primary Undiagnosed cardiac murmurs documented in this encounter Care Teams Cultured Marble Products Maker Relationship Specialty Start Date End Date Steve Davis MD [address] [place] [address] PCP - General Family Medicine 11/14/14 03/29/15 documented as of this encounter
--- OUTSIDE RECORDS SUMMARY | 2024-04-29 23:56 | XMS_ITS | Encounter Summary ---
Author Organization [facility] Address [address] [place] [address] Care Team Providers Care Steam Turbine Operator Name Role Phone Steve Davis MD Primary Care Provider [phone] Reason for Visit * Reason Comments Rupture of Membranes Encounter Details Date Type Department Care Team (Latest Contact Info) Description 11/14/2014 7:13 PM CDT - 11/14/2014 10:27 PM CDT Hospital Encounter [facility] 5 R [address] [place] [id number] Jose Antonio Perez MD [address] [facility] [address] [place] [address] Discharge Disposition: Home or Self Care Social [...] cramps, nausea,or diarrhea. [facility] [place] [facility]: [phone] documented in this encounter Medications at Time [...] Delivery: 05/03/15 care: is with Dr. Tamez ([facility]). Patient's is complicated by: Patient Active Problem [...] kg) Heart Rate: A: 138bpm; B: 150bpm Agenda: irritable Physical Exam: General: alert, cooperative, no [...] Yellow, Dark Yellow Clarity UA Clear Specific [place] UA 1.010 1.005-1.030 pH UA 6.5 5.0-8.0 [...] discharged home with SAB precautions. F/u in [facility] office on 11/23. Alfreda Nicole MD 11/14/2014 [...] Yellow, Dark Yellow 11/14/2014 9:22 PM CDT [facility] Clarity UA Clear 11/14/2014 9:22 PM CDT [facility] Specific [place] UA 1.010 1.005 - 1.030 11/14/2014 9:22 PM CDT [facility] pH UA 6.5 5.0 - 8.0 pH 11/14/2014 9:22 PM CDT [facility] Protein UA Negative Negative 11/14/2014 9:22 PM CDT [facility] Blood UA Negative Negative 11/14/2014 9:22 PM CDT [facility] Leukocyte UA Negative Negative 11/14/2014 9:22 PM CDT [facility] Nitrite UA Negative Negative 11/14/2014 9:22 PM CDT [facility] Glucose UA Negative Negative 11/14/2014 9:22 PM CDT [facility] Ketone UA Negative Negative 11/14/2014 9:22 PM CDT [facility] Bilirubin UA Negative Negative 11/14/2014 9:22 PM CDT [facility] Urobilinogen UA 0.2 0.1 - 1.0 EU/dL 11/14/2014 9:22 PM CDT [facility] Reflex Status Culture not indicated 11/14/2014 9:22 PM CDT [facility] Urine URINE SPECIMEN OBTAINED BY CLEAN CATCH PROCEDURE / Unknown Collection / Unknown 11/14/2014 9:06 PM CDT 11/14/2014 9:11 PM CDT [facility] - URINALYSIS ORD ERABLES Performing Organization Address City/State/[facility] Co de Phone Number [facility] [address] [place] [address] documented in this encounter Visit Diagnoses Diagnosis [...] disorders documented in this encounter Care Teams Steam Turbine Operator Relationship Specialty Start Date End Date Steve Davis MD [address] [place] [address] PCP - General Family Medicine 11/14/14 03/29/15 documented as of this encounter
--- OUTSIDE RECORDS SUMMARY | 2024-04-29 23:56 | XMS_ITS | Encounter Summary ---
Author Organization [facility] Address [address] [place], [place] [address] [address] Care Team Providers Care Patient Safety Attendant Name Role Phone Steve Davis MD Primary Care Provider [phone] Reason for Visit * Auth/Cert Specialty Diagnoses / Procedures Referred By Contac t Referred To Contact Obstetrics and Gynecology Procedures SECTION EMERGENCY [facility] 6w Mother Baby [address] [place] [address] Referral ID Status Reason Start Date Expiration Date Visits Re quested Visits Authorized [id number] 03/31/2015 09/27/2015 1 Encounter Details Date Type Department Care Team (Late st Contact Info) Description 03/30/2015 8:17 PM YOUTH CAREER SPECIALIST Anesthesia Event [facility] [address] [place], [place] [id number] Yasmani Ogden MD [address] [facility] [place] [address] Latonya Arteaga, MASSOTHERAPIST-LABORER [employer]RECKING AND SALVAGING [address] [facility] [place] [address] Anesthesia Record Procedure Summary Procedure Name Responsible [...] By: RIYA Umaña; Tolerance: Well 03/30/151954 by Clara Rowell RN 04/01/151153 by Vivian Lynch RN Epidural Date: 03/30/15; Time : 2020; Placed By: Gregg Arteaga manager strategic marketing 03/30/152020 by Latonya Arteaga APRN-LABORER [employer]ING 04/03/152217 by Generic, Auto Release Urethral Catheter [...] filed. ASA/AQI Tracking Events: No value filed. H CAREER SPECIALIST documented in this encounter Procedure Notes * Latonya Arteaga, MASSOTHERAPIST-LABORER [employer] - 03/30/2015 9:04 PM CSTAssociated Order(s): NEURAXIAL [...] ALYSSA x 1 attempt. Pt getting comfortable H CAREER SPECIALIST documented in this encounter Consult Notes * [...] to admission Medication Sig Dispense Refill ??? vrzripjxmi-cbkqygtsdsjxd-dmiygtjg (FIORICET) 50-325-40 MG tablet Take 1 Tab [...] EGFR >60 - >60 >60 >60 >60 H CAREER SPECIALIST documented in this encounter Plan of Treatment Not on file documented as of this encounter Procedures Procedure Name Priority Date/Time Associated Diagnosis Comments NEURAXIAL BLOCK Routine 03/30/2015 9:04 PM YOUTH CAREER SPECIALIST documented in this encounter Results * NEURAXIAL BLOCK (03/30/2015 9:04 PM YOUTH CAREER SPECIALIST) Narrative Latonya Arteaga APRN-CRNA - 03/30/2015 9:04 PM YOUTH CAREER SPECIALIST Latonya Arteaga APRN-CRNA ? 03/30/2015 ??9:04 PM [...] Anesthesia Intra-op $ Given 03/30/2015 9:27 PM YOUTH CAREER SPECIALIST 2 g fentaNYL (SUBLIMAZE) injection PRN, Starting on Sat03/30/15 at 2039, Until Sat03/30/15 at 2224, Anesthesia Intra-op $ Given 03/30/2015 9:27 PM YOUTH CAREER SPECIALIST 250 mcg $ Given 03/30/2015 8:40 PM YOUTH CAREER SPECIALIST 100 mcg fentanyl 2 mcg/ml and ropivicaine 0.2% in 0.9% nacl Epidural at 13 mL/hr, Epidural, CONTINUOUS, Starting on Sat03/30/15 at 2145, Until Aurea 03/31/15 at 0148, Demand Dose: 3 mL Lock out: 20 minutes 1 hour limit: 22 mL $ New Bag/Syringe 03/30/2015 8:27 PM YOUTH CAREER SPECIALIST 14 mL/hr lactated ringers infusion at 125 mL/hr, Intravenous, CONTINUOUS, Starting on Sat03/30/15 at 2045, Until Aurea 03/31/15 at 0148, Start IV with 18 gauge angiocath. $ New Bag/Syringe 03/30/2015 9:57 PM YOUTH CAREER SPECIALIST $ New Bag/Syringe 03/30/2015 9:20 PM YOUTH CAREER SPECIALIST lidocaine 1% - epinephrine 1:200,000 injection PRN, Starting on Sat03/30/15 at 202, Until Sat03/30/15 at 2224, Anesthesia Intra-op $ Given 03/30/2015 8:21 PM YOUTH CAREER SPECIALIST 3 m L lidocaine 2% - epinephrine 1:200,000 injection PRN, Starting on Sat03/30/15 at 2024, Until Sat03/30/15 at 2224, Anesthesia Intra-op $ Given 03/30/2015 9:20 PM YOUTH CAREER SPECIALIST 10 mL $ Given 03/30/2015 8:24 PM YOUTH CAREER SPECIALIST 5 mL midazolam (VERSED) injection PRN, Starting on Sat03/30/15 at 2129, Until Sat03/30/15 at 2224, Anesthesia Intra-op $ Given 03/30/2015 9:29 PM YOUTH CAREER SPECIALIST 2 m g morphine injection PRN, Starting on Sat03/30/15 at 2152, Until Sat03/30/15 at 2224, Anesthesia Intra-op $ Given 03/30/2015 10:00 PM YOUTH CAREER SPECIALIST 7 mg $ Given 03/30/2015 9:52 PM YOUTH CAREER SPECIALIST 3 mg morphine PF (DURAMORPH) injection PRN, Starting on Sat03/30/15 at 2142, Until Sat03/30/15 at 2224, Anesthesia Intra-op $ Given 03/30/2015 9:46 PM YOUTH CAREER SPECIALIST 2 m g $ Given 03/30/2015 9:42 PM YOUTH CAREER SPECIALIST 3 mg oxytocin (PITOCIN) 30 units in 500 ml normal saline IV solution CONTINUOUS PRN, Starting on Sat03/30/15 at 2126, Until Sat03/30/15 at 2224, Anesthesia Intra-op $ New Bag/Syringe 03/30/2015 9:45 PM YOUTH CAREER SPECIALIST $ New Bag/Syringe 03/30/2015 9:26 PM YOUTH CAREER SPECIALIST phenylephrine 40 mcg/ml custom syringe PRN, Starting on Sat03/30/15 at 2133, Until Sat03/30/15 at 4, Anesthesia Intra-op $ Given 03/30/2015 9:50 PM YOUTH CAREER SPECIALIST 200 mcg $ Given 03/30/2015 9:48 PM YOUTH CAREER SPECIALIST 200 mcg $ Given 03/30/2015 9:34 PM YOUTH CAREER SPECIALIST 200 mcg propofol (DIPRIVAN) injection PRN, Starting on Sat03/30/15 at 5, Until Sat03/30/15 at 2224, Anesthesia Intra-op $ Given 03/30/2015 9:25 PM YOUTH CAREER SPECIALIST 200 mg succinylcholine (ANECTINE) injection PRN, Starting on Sat03/30/15 at 2124, Until Sat03/30/15 at 4, Anesthesia Intra-op $ Given 03/30/2015 9:25 PM YOUTH CAREER SPECIALIST 120 mg documented in this encounter Care Teams Patient Safety Attendant Relationship Specialty Start Date End Date Steve Davis MD [address] [employer] [address] [place] [address] PCP - General Family Medicine 03/30/15 documented as of this encounter
--- OUTSIDE RECORDS SUMMARY | 2024-04-29 23:56 | XMS_ITS | Patient Health Summary ---
Author Organization [facility] Address [facility] [facility] [place] [address] Care Team Providers Care Deicer Tester Name Role Phone Steve Davis MD Primary Care Provider [phone] [facility],non-owned Affiliates and Associated Physician Practices is amultiple site organization consisting of ambulatory clinics and hospital sitesin [place], [place], [place] and [place]. This disclosure is being madepursuant to the Care Everywhere program and may not contain all information available regarding this patient. Last updated 18.[facility] Allergies No known active allergies Medications [...] and evening meal 2 refills left * evtygocned-lwcsmijucccsm-uoataubd (FIORICET) 50-325-40 MG tablet(Started 03/29/2015) Take 1 [...] Obesity 11/14/2014 Supervision of high risk in [facility] 11/14/2014 History of ectopic 11/14/2014 Hyperemesis [...] Comments Blood Pressure 112/70 05/05/2015 1:44 PM TALEND ETL DEVELOPER Pulse 76 05/05/2015 1:44 PM TALEND ETL DEVELOPER Temperature 36.7 ??C (98.1 ??F) 04/03/2015 8:00 AM CS T Respiratory Rate 16 05/05/2015 1:44 PM TALEND ETL DEVELOPER Oxygen Saturation 96% 03/31/2015 3:07 AM TALEND ETL DEVELOPER Inhaled Oxygen Concentration - - Weight 91.6 kg (202 lb) 05/05/2015 1:44 PM TALEND ETL DEVELOPER Height 167.6 cm (5' 6 ) 05/05/2015 1:44 PM TALEND ETL DEVELOPER Body Mass Index 32.6 05/05/2015 1:44 PM TALEND ETL DEVELOPER Procedures * IMAGING/RADIOLOGY/XRAY RESULTS ORDER(Performed 04/12/2015) * [...] * IMAGING/RADIOLOGY/XRAY RESULTS ORDER (04/12/2015 4:14 PM TALEND ETL DEVELOPER) Only the most recent of4 resultswithin the time period is included. Anatomical Region Laterality Modality Other Narrative 04/12/2015 4:14 PM TALEND ETL DEVELOPER Ordered by an unspecified provider. Scanned Document IMAGING * LAB RESULTS ORDER (04/04/2015 9:56 AM TALEND ETL DEVELOPER) Only the most recent of2 resultswithin the time period is included. Narrative 04/04/2015 9:56 AM TALEND ETL DEVELOPER Ordered by an unspecified provider. Scanned Document LAB - THERAPEUTIC DR LARA MONITORING ORDERABLES * (ABNORMAL) HGB HCT PANEL (03/31/2015 5:19 AM TALEND ETL DEVELOPER) Hemoglobin 7.7(L) 12.0 - 15.6 gm/dL 03/31/2015 6:03 AM TALEND ETL DEVELOPER [facility] Hematocrit 23.4(L) 35.9 - 45.5 % 03/31/2015 6:03 AM TALEND ETL DEVELOPER [facility] Blood BLOOD SPECIMEN / Unknown Lab Venipuncture / Unknown 03/31/2015 5:19 AM TALEND ETL DEVELOPER 03/31/2015 5:49 AM TALEND ETL DEVELOPER Primo Melendez MD LAB - HEMATOLOGY ORD ERABLES Performing Organization Address City/State/[facility] Co de Phone Number [facility] [address], [place] [id number] * GROSS + MICRO EXAM (STL) (03/30/2015 9:52 PM TALEND ETL DEVELOPER) Case Report Surgical Pathology Report ? Case: [id number] ? Authorizing Provider: ??Elena Wei MD ?Collected: ? 03/30/2015 09:52 PM ? Ordering Location: ? [facility] ? Received: ?03/31/2015 07:54 AM ? Pathologist: ? Arlen Newell MD ? Specimen: ?Placenta 3rd Trimester ? 04/04/2015 3:[address] [facility] Final Diagnosis 1. Twin [...] Acute chorioamnionitis, mild MM/kaylee 04/04/2015 3:[address] [facility] Clinical History Preeclampsia without severe features, twin gestation. 04/04/2015 3:[address] [facility] Gross Description Received in [...] are no lesions or masses grossly identified. Industrial Hygiene Engineer sections are submitted as follows: A1 - Membranes and umbilical cord placenta A A2 - surface placenta A A3 - Maternal surface placenta A A4 - Membranes and umbilical cord placenta B A5 - and maternal surface placenta B A6 - Maternal surface placenta B DYT/kunal 04/04/2015 3:23 PM TALEND ETL DEVELOPER [facility] Microscopic Description Sections of [...] villitis or infarction. MM/kaylee 04/04/2015 3:23 PM TALEND ETL DEVELOPER [facility] Pathology/Cytolo gy ENTIRE PLACENTA / Unknown 03/30/2015 9:52 PM TALEND ETL DEVELOPER 03/31/2015 7:54 AM TALEND ETL DEVELOPER Elena Wei MD LAB - PATHOLOGY/CYTO LOGY ORDERABLES [facility] [address] [place] [address] * (ABNORMAL) BLOOD GASES CORD KASEY (ISTAT) (03/30/2015 9:51 PM TALEND ETL DEVELOPER) Only the most recent of2 resultswithin the time period is included. pH Cord Venous POCT 7.30 7.28 - 7.40 pH 03/31/2015 5:57 AM TALEND ETL DEVELOPER [facility] pCO2 Cord Venous POCT 48(H) 35 - 45 mmHg 03/31/2015 5:[address] [facility] pO2 Cord Venous POCT 26 22 - 33 mmHg 03/31/2015 5:[address] [facility] HCO3 Cord Arterial POCT 24 22 - 24 mmol/L 03/31/2015 5:[address] [facility] BE Cord Venous POCT Calc -3 -6 - 2 mmol/L 03/31/2015 5:[address] [facility] TCO2 Cord Venous POCT 25 22 - 30 mmol/L 03/31/2015 5:[address] [facility] O2 Saturation % Cord Venous Calc POCT 40 % 03/31/2015 5:[address] [facility] Site CORD KASEY 03/31/2015 5:[address] [facility] Sample iSTAT CORD V 03/31/2015 5:[address] [facility] Blood CORD BLOOD SPECIMEN / Unknown 03/30/2015 9:51 PM TALEND ETL DEVELOPER 03/31/2015 5:52 AM TALEND ETL DEVELOPER Narrative [facility] - 03/31/2015 5:57 AM TALEND ETL DEVELOPER Twin A Jose Antonio Perez MD LAB - POINT OF CARE ORDERABLES Performing Organization Address City/State/[facility] Co de Phone Number [facility] [address] [place] [address] * (ABNORMAL) BLOOD GASES CORD ART (ISTAT) (03/30/2015 9:47 PM TALEND ETL DEVELOPER) Only the most recent of2 resultswithin the time period is included. pH Cord Arterial POCT 7.22 7.20 - 7.34 pH 03/31/2015 5:[address] [facility] pCO2 Cord Arterial POCT 59.6(H) 45 - 55 mmHg 03/31/2015 5:[address] [facility] pO2 Cord Arterial POCT 21 12 - 25 mmHg 03/31/2015 5:[address] [facility] HCO3 Cord Arterial POCT 24.1 15 - 29 mmol/L 03/31/2015 5:[address] [facility] BE Cord Arterial POCT -5(L) -2.9 - 8.3 mmol/L 03/31/2015 5:[address] [facility] TCO2 Cord Arterial POCT 26 mmol/L 03/31/2015 5:[address] [facility] O2 Saturation Cord Art % Calc POCT 25 % 03/31/2015 5:58 AM TALEND ETL DEVELOPER [facility] Site CORD ART 03/31/2015 5:[address] [facility] Sample iSTAT CORD A 03/31/2015 5:[address] [facility] Blood CORD BLOOD SPECIMEN / Unknown 03/30/2015 9:47 PM TALEND ETL DEVELOPER 03/31/2015 5:51 AM TALEND ETL DEVELOPER Narrative [facility] - 03/31/2015 5:58 AM TALEND ETL DEVELOPER Twin A Jose Antonio Perez MD LAB - POINT OF CARE ORDERABLES Performing Organization Address City/State/[facility] Co de Phone Number [facility] [address] [place] [address] * NEURAXIAL BLOCK (03/30/2015 9:04 PM TALEND ETL DEVELOPER) Narrative Latonya Arteaga APRN-OPERATIONS ENGINEER - 03/30/2015 9:04 PM T[employer]END ETL DEVELOPER Latonya Arteaga APRN-OPERATIONS ENGINEER ? 03/30/2015 ??9:04 PM NEURAXIAL BLOCK Patient [...] CBC W AUTO DIFFERENTIAL (03/30/2015 8:01 PM TALEND ETL DEVELOPER) Only the most recent of7 resultswithin the time period is included. WBC 12.4(H) 4.4 - 10.7 x10^9/L 03/30/2015 8:[address] [facility] WBC Corrected x10^9/L 03/30/2015 8:[address] [facility] RBC 3.99 3.80 - 5.20 x10^12/L 03/30/2015 8:[address] [facility] Hemoglobin 10.6(L) 12.0 - 15.6 gm/dL 03/30/2015 8:[address] [facility] Hematocrit 32.1(L) 35.9 - 45.5 % 03/30/2015 8:[address] [facility] MCV 80.5(L) 80.7 - 98.3 fl 03/30/2015 8:[address] [facility] MCH 26.6(L) 26.7 - 34.0 pg 03/30/2015 8:[address] [facility] MCHC 33.0 30.8 - 35.9 gm/dL 03/30/2015 8:[address] [facility] Platelet Count 173 153 - 416 x10^9/L 03/30/2015 8:[address] [facility] RDW-CV 18.0(H) 12.1 - 14.9 % 03/30/2015 8:[address] [facility] MPV 11.3 9.4 - 12.9 fl 03/30/2015 8:[address] [facility] Neutrophils % 78.7(H) 44.0 - 73.0 % 03/30/2015 8:[address] [facility] Lymphocytes % 13.9(L) 20.0 - 43.0 % 03/30/2015 8:[address] [facility] Monocytes % 6.9 5.0 - 13.0 % 03/30/2015 8:[address] [facility] Eosinophils % 0.1 0.0 - 6.0 % 03/30/2015 8:[address] [facility] Basophils % 0.1 0.0 - 2.0 % 03/30/2015 8:[address] [facility] Immature Granulocytes 0.3 0 - 1 % 03/30/2015 8:[address] [facility] Neutrophil Absolute 9.74(H) 2.01 - 7.14 x10^9/L 03/30/2015 8:[address] [facility] Lymphocytes Absolute 1.72 1.07 - 3.94 x10^9/L 03/30/2015 8:[address] [facility] Monocytes Absolute 0.86 0.26 - 1.07 x10^9/L 03/30/2015 8:[address] [facility] Eosinophils Absolute 0.01 0 - 0.47 x10^9/L 03/30/2015 8:[address] [facility] Basophils Absolute 0.01 0 - 0.08 x10^9/L 03/30/2015 8:[address] [facility] Immature Granulocytes Absolute 0.04 0.00 - 0.06 x10^9/L 03/30/2015 8:[address] [facility] Blood BLOOD SPECIMEN / Unknown Venipuncture / Unknown 03/30/2015 8:01 PM TALEND ETL DEVELOPER 03/30/2015 8:05 PM TALEND ETL DEVELOPER Jose Antonio Perez MD LAB - HEMATOLOGY ORD ERABLES [facility] [address] [place] [address] * NEURAXIAL BLOCK (03/30/2015 5:39 AM TALEND ETL DEVELOPER) Narrative Christine Park, RN RELIEF CHARGE-CHAR - 03/30/2015 5:39 AM TALEND ETL DEVELOPER Christine Park, ZARINA ? 03/30/2015 ??5:39 AM [...] + SCREEN PANEL (03/30/2015 4:22 AM [facility]) Only the most recent of2 resultswithin the time period is included. ABO A 03/30/2015 5:[address] [facility] Rh Type Positive 03/30/2015 5:[address] [facility] Comment:History check perfor med. No retype required. Antibody Screen Negative 03/30/2015 5:[address] [facility] Miscellaneous samples (specimen) BLOOD SPECIMEN / Unknown 03/30/2015 4:22 AM TALEND ETL DEVELOPER 03/30/2015 4:29 AM TALEND ETL DEVELOPER Анна Anand MD LAB - BLOOD BANK ORD ERABLES [facility] [address] * (ABNORMAL) URINALYSIS ROUTINE W/REFLEX TO CULTURE (03/30/2015 3:24 AM TALEND ETL DEVELOPER) Only the most recent of7 resultswithin the time period is included. Color UA Yellow Straw, Yellow, Dark Yellow 03/30/2015 3:[address] [facility] Clarity UA Clear 03/30/2015 3:[address] [facility] Specific Morrill UA 1.007 1.005 - 1.030 03/30/2015 3:[address] [facility] pH UA 7.5 5.0 - 8.0 pH 03/30/2015 3:[address] [facility] Protein UA Negative Negative 03/30/2015 3:[address] [facility] Blood UA 2+(A) Negative 03/30/2015 3:[address] [facility] Leukocyte UA Negative Negative 03/30/2015 3:[address] [facility] Nitrite UA Negative Negative 03/30/2015 3:[address] [facility] Glucose UA Negative Negative 03/30/2015 3:[address] [facility] Ketone UA Negative Negative 03/30/2015 3:[address] [facility] Bilirubin UA Negative Negative 03/30/2015 3:[address] [facility] Urobilinogen UA 0.2 0.1 - 1.0 EU/dL 03/30/2015 3:[address] [facility] WBC UA Auto 0-2 0-2, 2-5 # /hpf 03/30/2015 3:[address] [facility] RBC UA Auto 0-2 0-2, 2-5 # /hpf 03/30/2015 3:[address] [facility] Epithelial Cell UA Auto 0-2 0-2, 2-5 # /hpf 03/30/2015 3:54 AM TALEND ETL DEVELOPER [facility] Reflex Status Culture not indicated 03/30/2015 3:54 AM TALEND ETL DEVELOPER [facility] Urine URINE SPECIMEN OBTAINED BY CLEAN CATCH PROCEDURE / Unknown 03/30/2015 3:24 AM TALEND ETL DEVELOPER 03/30/2015 3:38 AM TALEND ETL DEVELOPER Анна Anand MD LAB - URINALYSIS ORD ERABLES Performing Organization Address [facility] Co de Phone Number [facility] [address] [place] [address] * PROTEIN CREATININE RATIO URINE RANDOM PNL (03/29/2015 9:52 AM TALEND ETL DEVELOPER) Only the most recent of2 resultswithin the time period is included. Protein Urine 26.8 mg/dL 03/29/2015 9:[address] [facility] Creatinine Urine 92 mg/dL 03/29/2015 9:[address] [facility] Protein/Creatin ine Ratio Urine 0.29 03/29/2015 9:[address] [facility] Urine URINE SPECIMEN OBTAINED BY CLEAN CATCH PROCEDURE / Unknown Collection / Unknown 03/29/2015 9:52 AM TALEND ETL DEVELOPER 03/29/2015 9:23 AM TALEND ETL DEVELOPER Lorena Redd APRN-DIRECTOR EDUCATION LAB - URINE C HEMISTRY ORDERABLES Performing Organization Address [facility] de Phone Number [facility] [address] [place] [address] * URIC ACID BLOOD (03/29/2015 9:24 AM TALEND ETL DEVELOPER) Only the most recent of3 resultswithin the time period is included. Uric Acid 3.6 3.0 - 8.5 mg/dL 03/29/2015 9:53 AM TALEND ETL DEVELOPER [facility] Blood BLOOD SPECIMEN / Unknown Venipuncture / Unknown 03/29/2015 9:24 AM TALEND ETL DEVELOPER 03/29/2015 9:23 AM TALEND ETL DEVELOPER Lorena Redd RN RELIEF CHARGE-DIRECTOR EDUCATION LAB - CHROME TANNING DRUM OPERATOR RY ORDERABLES Performing Organization Address [facility] Co de Phone Number [facility] [address] [place] [address] * (ABNORMAL) COMPREHENSIVE METABOLIC PANEL (03/29/2015 9:24 AM [facility]) Only the most recent of5 resultswithin the time period is included. Glucose 87 74 - 106 mg/dL 03/29/2015 9:[address] [facility] Sodium 140 136 - 145 mmol/L 03/29/2015 9:[address] [facility] Potassium 3.2(L) 3.5 - 5.1 mmol/L 03/29/2015 9:[address] [facility] Chloride 109(H) 98 - 107 mmol/L 03/29/2015 9:[address] [facility] CO2 20(L) 22 - 31 mmol/L 03/29/2015 9:[address] [facility] Calcium 8.1(L) 8.5 - 10.1 mg/dL 03/29/2015 9:[address] [facility] Anion Gap 11 5 - 20 mmol/L 03/29/2015 9:[address] [facility] BUN 2(L) 7 - 21 mg/dL 03/29/2015 9:[address] [facility] Creatinine 0.43(L) 0.50 - 1.30 mg/dL 03/29/2015 9:[address] [facility] Alkaline Phosphatase 132(H) 38 - 126 U/L 03/29/2015 9:[address] [facility] ALT 14 12 - 78 U/L 03/29/2015 9:[address] [facility] AST 13 5 - 40 U/L 03/29/2015 9:[address] [facility] Protein Total 5.6(L) 6.4 - 8.2 gm/dL 03/29/2015 9:[address] [facility] Albumin 2.2(L) 3.4 - 5.0 gm/dL 03/29/2015 9:[address] [facility] Bilirubin Total 0.3 0.2 - 1.0 mg/dL 03/29/2015 9:[address] [facility] eGFR by MDRD >60 >60 mL/min/1.7 3m2 03/29/2015 9:[address] [facility] eGFR by MDRD >60 >60 mL/min/1.7 3m2 03/29/2015 9:[address] [facility] Blood BLOOD SPECIMEN / Unknown Venipuncture / Unknown 03/29/2015 9:24 AM TALEND ETL DEVELOPER 03/29/2015 9:23 AM TALEND ETL DEVELOPER Lorena Redd RN RELIEF CHARGE-DIRECTOR EDUCATION LAB - CHROME TANNING DRUM OPERATOR RY ORDERABLES Performing Organization Address [facility] de Phone Number [facility] [address] [place] [id number] * LDH BLOOD (03/29/2015 9:24 AM TALEND ETL DEVELOPER) Only the most recent of2 resultswithin the time period is included. LDH 192 100 - 200 U/L 03/29/2015 9:53 AM TALEND ETL DEVELOPER [facility] Blood BLOOD SPECIMEN / Unknown Venipuncture / Unknown 03/29/2015 9:24 AM TALEND ETL DEVELOPER 03/29/2015 9:23 AM TALEND ETL DEVELOPER Lorena Redd RN RELIEF CHARGE-DIRECTOR EDUCATION LAB - CHROME TANNING DRUM OPERATOR RY ORDERABLES Performing Organization Address [facility] de Phone Number [facility] [address] [place] [phone] * CULTURE URINE (03/29/2015 9:10 AM TALEND ETL DEVELOPER) Only the most recent of5 resultswithin the time period is included. Culture <10,000 CFU/mL normal urogenital augustine SATURNINO 03/31/2015 9:12 AM TALEND ETL DEVELOPER [facility] Urine URINE SPECIMEN OBTAINED BY CLEAN CATCH PROCEDURE / Unknown Collection / Unknown 03/29/2015 9:10 AM TALEND ETL DEVELOPER 03/29/2015 9:23 AM TALEND ETL DEVELOPER Lorena Redd RN RELIEF CHARGE-DIRECTOR EDUCATION LAB - MICROBI OLOGY ORDERABLES Performing Organization Address [facility] de Phone Number [facility] [address] [place] [address], [facility] [phone] * CULTURE STREP B (03/22/2015 2:37 PM TALEND ETL DEVELOPER) Culture SEE NOTE [facility] ([facility]) Comment: ??STREPTOCOCCUS, GROUP B CULTURE ?MICRO NUMBER: ?[id number] ??TEST STATUS: ? FINAL ??SPECIMEN SOURCE: ?? NOT GIVEN ??SPECIMEN QUALITY: ??ADEQUATE ??RESULT: ?No group B Streptococcus isolated Test Performed at: [facility] ??[id number] [place] MD 03/22/2015 2:37 PM TALEND ETL DEVELOPER 03/23/2015 3:10 AM TALEND ETL DEVELOPER Narrative [facility] ([facility]) - 03/25/2015 11:00 AM TALEND ETL DEVELOPER Preferred Lab:->[facility] Marciano Tamez MD LAB - MICROBIOLOGY O RDERABLES Performing Organization Address [facility] Co de Phone Number [facility]) * URINALYSIS - POINT OF CARE (AMB) [facility] (03/22/2015) Only the most recent of8 resultswithin the time period is included. Glucose UA n [facility] Bilirubin UA POCT n [facility] Ketones UA POCT n [facility] Specific Morrill UA n [facility] Blood Urine POCT n [facility] pH UA n [facility] Protein UA n [facility] Urobilinogen UA n [facility] Nitrite UA n [facility] WBC UA n [facility] Urine specimen (specimen) 03/22/2015 Marciano Tamez MD LAB - POINT OF CARE ORDERABLES Performing Organization Address [facility] Co de Phone Number [facility] * (ABNORMAL) POTASSIUM BLOOD (03/15/2015 9:34 AM TALEND ETL DEVELOPER) Potassium 3.3(L) 3.5 - 5.3 mmol/L [facility] ([facility]) Comment: Test Performed at: [facility] [address] [place], [place] ??[id number] ENMANUEL BRIONES DO,MPH Blood specimen (specimen) BLOOD SPECIMEN / Unknown 03/15/2015 9:34 AM TALEND ETL DEVELOPER 03/15/2015 9:34 AM TALEND ETL DEVELOPER Historical Provider LAB - CHEMISTRY O RDERABLES [facility] ([facility]) * PROTEIN CREATININE RATIO URINE TIMED PNL (03/09/2015 5:33 PM TALEND ETL DEVELOPER) Volume 24 Hour Urine 1,900 mL 03/09/2015 6:07 PM TALEND ETL DEVELOPER [facility] Collection Time Hours 24 hrs 03/09/2015 6:07 PM TALEND ETL DEVELOPER [facility] Protein Urine 19.7 mg/dL 03/09/2015 6:07 PM TALEND ETL DEVELOPER [facility] Creatinine Urine 85 mg/dL 03/09/2015 6:07 PM TALEND ETL DEVELOPER [facility] Protein/Creatin ine Ratio Urine 0.23 03/09/2015 6:[address] [facility] Urine TIMED URINE SPECIMEN / Unknown Collection / Unknown 03/09/2015 5:33 PM TALEND ETL DEVELOPER 03/09/2015 5:52 PM TALEND ETL DEVELOPER Oanh Julian MD LAB - URINE CHEMI STRY ORDERABLES Performing Organization Address [facility] Co de Phone Number [facility] [address] [place], [place] [id number] * (ABNORMAL) PROTEIN URINE TIMED QUANTITATIVE (03/09/2015 5:33 PM TALEND ETL DEVELOPER) Volume 24 Hour Urine 1,900 mL 03/09/2015 6:07 PM TALEND ETL DEVELOPER [facility] Collection Time Hours 24 hrs 03/09/2015 6:[address] [facility] Protein 24 Hour Urine 374(H) 42 - 225 mg/24hr 03/09/2015 6:[address] [facility] Protein Urine 19.7 mg/dL 03/09/2015 6:[address] [facility] Urine TIMED URINE SPECIMEN / Unknown Collection / Unknown 03/09/2015 5:33 PM TALEND ETL DEVELOPER 03/09/2015 5:52 PM TALEND ETL DEVELOPER Oanh Julian MD LAB - URINE CHEMI STRY ORDERABLES Performing Organization Address [facility] Co de Phone Number [facility] [address] [place] [phone] * (ABNORMAL) CREATININE CLEARANCE URINE TIMED (03/09/2015 5:33 PM [facility]) Volume 24 Hour Urine 1,900 mL 03/09/2015 6:[address] [facility] Collection Time Hours 24 hrs 03/09/2015 6:[address] [facility] Height Inches 66 inches 03/09/2015 6:[address] [facility] Weight in Pounds 234 pounds 03/09/2015 6:[address] [facility] Surface Area 2.14 03/09/2015 6:[address] [facility] Creatinine 0.41(L) 0.50 - 1.30 mg/dL 03/09/2015 6:[address] [facility] Creatinine Urine 85 mg/dL 03/09/2015 6:[address] [facility] Creatinine 24 Hour Urine 1,615 800 - 1,800 mg/24hr 03/09/2015 6:[address] [facility] Creatinine Clearance 221(H) 87 - 107 mL/min/1.73 m2 03/09/2015 6:[address] [facility] Urine TIMED URINE SPECIMEN / Unknown Collection / Unknown 03/09/2015 5:33 PM [facility] 03/09/2015 5:52 PM [facility] Oanh Julian MD LAB - URINE CHEMI STRY ORDERABLES Performing Organization Address City/State/[facility] Co de Phone Number [facility] [address] [place] [address] * (ABNORMAL) BASIC METABOLIC PANEL (CALCIUM TOTAL) (03/09/2015 3:57 AM [facility]) Only the most recent of2 resultswithin the time period is included. Glucose 88 74 - 106 mg/dL 03/09/2015 4:[address] [facility] Sodium 141 136 - 145 mmol/L 03/09/2015 4:[address] [facility] Potassium 3.2(L) 3.5 - 5.1 mmol/L 03/09/2015 4:41 AM [facility] Chloride 110(H) 98 - 107 mmol/L 03/09/2015 4:[address] [facility] CO2 22 22 - 31 mmol/L 03/09/2015 4:41 AM [employer] [facility] Calcium 8.0(L) 8.5 - 10.1 mg/dL 03/09/2015 4:[address] [facility] Anion Gap 9 5 - 20 mmol/L 03/09/2015 4:[address] [facility] BUN 2(L) 7 - 21 mg/dL 03/09/2015 4:[address] [facility] Creatinine 0.41(L) 0.50 - 1.30 mg/dL 03/09/2015 4:41 AM [employer] [facility] eGFR by MDRD >60 >60 mL/min/1.7 3m2 03/09/2015 4:41 AM [employer] [facility] eGFR by MDRD >60 >60 mL/min/1.7 3m2 03/09/2015 4:[address] [facility] Blood BLOOD SPECIMEN / Unknown Lab Venipuncture / Unknown 03/09/2015 3:57 AM [employer] 03/09/2015 4:02 AM [employer] Jose Antonio Saravia MD LAB - CHEMISTRY CJ SINHA Performing Organization Address City/[facility]/ZIP Co de Phone Number [facility] [address] [place] [phone] * (ABNORMAL) PHOSPHORUS BLOOD (03/09/2015 3:57 AM [employer]EL[employer]) Only the most recent of2 resultswithin the time period is included. Phosphorus 2.4(L) 2.5 - 4.9 mg/dL 03/09/2015 4:[address] [facility] Blood BLOOD SPECIMEN / Unknown Lab Venipuncture / Unknown 03/09/2015 3:57 AM [employer] 03/09/2015 4:02 AM [employer] Jose Antonio Saravia MD LAB - CHEMISTRY CJ SINHA Performing Organization Address City/[facility]/ZIP Co de Phone Number [facility] [address] [place] [phone] * MAGNESIUM BLOOD (03/09/2015 3:57 AM [employer]) Only the most recent of2 resultswithin the time period is included. Magnesium 1.9 1.6 - 2.6 mg/dL 03/09/2015 4:41 AM [employer] [facility] Blood BLOOD SPECIMEN / Unknown Lab Venipuncture / Unknown 03/09/2015 3:57 AM [employer] 03/09/2015 4:02 AM [employer] Jose Antonio Saravia MD LAB - CHEMISTRY CJ SINHA Performing Organization Address [facility]/ZIP Co de Phone Number [facility] [address] [place] [address] * BLOOD TYPE VERIFICATION (03/08/2015 4:35 PM [employer]EL[employer]) ABO A 03/08/2015 5:48 PM [employer] [facility] Rh Type Positive 03/08/2015 5:48 PM [employer] [facility] Miscellaneous samples (specimen) BLOOD SPECIMEN / Unknown Venipuncture / Unknown 03/08/2015 4:35 PM [employer] 03/08/2015 5:29 PM [employer] Marciano Tamez MD LAB - BLOOD BANK MYLES GUERRERO Performing Organization Address [facility] Co de Phone Number [facility] [address] [place] [address] * EKG 12-LEAD (03/08/2015 3:38 PM [employer]EL[employer]) Ventricular Rate 85 BPM [facility] Atrial Rate 85 BPM [facility] P-R Interval 194 ms [facility] MUSE QRS Duration ms 88 ms [facility] Q-T Interval ms 366 ms [facility] QTC Calculation (Bezet) 435 ms [facility] MUSE Calculated P [place] 2 degrees [facility] MUSE Calculated R [place] 30 degrees [facility] MUSE Calculated T [place] 6 degrees [facility] MUSE Interpretation EKG NORMAL SINUS RHYTHM NORMAL ECG NO PREVIOUS ECGS AVAILABLE Confirmed by MD Kvaitha, Aly ([id number]) on 03/09/2015 8:55:45 AM [facility] 03/08/2015 3:38 PM [employer] 03/09/2015 8:55 AM [employer] Oanh Julian MD ECG ORDERABLES Performing Organization Address City/[facility]/ZIP Co de Phone Number [facility] * GLUCOSE PROTEIN KETONE URINE - POINT OF CAR (03/07/2015 1:56 PM [employer]EL[employer]) Glucose UA negative Negative [facility] POCT TESTING Protein UA 1+ Negative [facility] TEST[facility] Ketone UA negative Negative [facility] QC Verified Yes Yes [facility] POC T TESTING Urine specimen (specimen) URINE / Unknown 03/07/2015 1:56 PM [employer] Juan Carlos Anand MD LAB - POINT OF CARE ORDERABLES [facility] POCT TESTING [address] [phone] * GLUCOSE - POINT OF CARE (AMB) [facility] (03/01/2015) Only the most recent of2 resultswithin the time period is included. Marciano Tamez MD LAB - POINT OF CARE ORDERABLES Performing Organization Address City/[facility] Co de Phone Number [facility] * TSH (02/22/2015 10:01 AM CDT) TSH 1.29 mIU/L [facility] ([facility]) Comment: ?Reference Range ?> or = 20 Years ??0.40-4.50 ? Ranges ?First trimester ?0.26-2.66 ?Second trimester ?? 0.55-2.73 ?Third trimester ?0.43-2.91 REPORT COMMENT: PREFERRED LAB:->[facility]; PREFERRED LAB:->[facility]; PREFERRED LAB: Test Performed at: [facility] [id number] [place] [address] ??[phone] ENMANUEL BRIONES DO,MPH Blood specimen (specimen) BLOOD SPECIMEN / Unknown 02/22/2015 10:01 AM CDT 02/22/2015 10:02 AM CDT Narrative [facility] ([facility]) - 02/23/2015 7:00 AM CDT Preferred Lab:->[facility] Marciano Tamez MD LAB - CHEMISTRY CJ SINHA Performing Organization Address [facility] de Phone Number [facility] ([facility]) * T4 FREE (02/22/2015 10:01 AM CDT) T4 Free 1.1 0.8 - 1.8 ng/dL [facility] ([facility]) Comment: Test Performed at: [facility] [employer] ??[phone] ENMANUEL BRIONES DO,MPH Blood specimen (specimen) BLOOD SPECIMEN / Unknown 02/22/2015 10:01 AM CDT 02/22/2015 10:02 AM CDT Narrative [facility] ([facility]) - 02/23/2015 7:00 AM CDT Preferred Lab:->[facility] Marciano Tamez MD LAB - CHEMISTRY CJ SINHA Performing Organization Address [facility] de Phone Number [facility] ([facility]) * ECHOCARDIOGRAM 2D WITH DOPPLER (02/16/2015 2:19 PM CDT) 02/16/2015 2:19 PM CDT Narrative [facility] - 02/17/2015 11:15 AM CDT Transthoracic Echocardiogram 2D, M-mode, Doppler, and Color Doppler Patient: OANH ORTIZ MR number: [id number] Height: 66 in Weight: 225.5 lb BSA: 2.11 m?? Study date: 16-Feb-2015 : 1985 Age: 29 years Gender: Female Race: 2 Referring Physician: ??Marciano Tamez MD Director Of Placement: ??Valerie Thurman RDCS Reading Physician: ??Savanah Marks [...] Color Doppler Patient: OANH ORTIZ MR number: [id number] Height: 66 in Weight: 225.5 lb BSA: 2.11 m?? Study date: 16-Feb-2015 : 1985 Age: 29 years Gender: Female Race: 2 Referring Physician: Marciano Tamez MD Director Of Placement: Valerie Thurman RDCS Reading Physician: Savanah Marks [...] Tamez MD ECHO ORDERABLES Performing Organization Address [facility] Co de Phone Number [facility] [address] [place] [address] * PROC ECHOCARDIOGRAM COMP W BUBBLE STUDY (02/15/2015) Marciano Tamez MD ECG ORDERABLES Performing Organization Address [facility] Co de Phone Number [facility] * GLUCOSE CHALLENGE (02/02/2015 11:30 AM CDT) Only the most recent of2 resultswithin the time period is included. Glucose, 50 gm screen 129 <135 mg/dL [facility] ([facility]) Comment: Test Performed at: [facility] [id number] [place] [address] ??[phone] ENMANUEL BRIOENS DO,MPH Blood specimen (specimen) 02/02/2015 11:30 AM CDT 02/02/2015 11:31 AM CDT Marciano Tamez MD LAB - CHEMISTRY CJ SINHA [facility] ([facility]) * PROFILE I W/ HBSAG (04/29/1998 12:00 AM [employer]EL[employer]) Only the most recent of2 resultswithin the time period is included. Antibody Screen neg [facility] Rh Type pos [facility] ABO A [facility] 04/29/1998 Narrative [facility] - 04/29/1998 12:00 AM [employer]EL[employer] This external order was created through the Results Console. Historical Provider LAB - CHEMISTRY O RDERAGUSTAVO Performing Organization Address [facility]/ZIP Co de Phone Number [facility] * HIV-1 HIV-2 ANTIBODIES W RFLX REFLEXED (04/29/1998 12:00 AM [employer] DEVELOPER) HIV 1/2 EIA Antibody neg [facility] 04/29/1998 Narrative [facility] - 04/29/1998 12:00 AM [employer]EL[employer] This external order was created through the Results Console. Historical Provider LAB - CHEMISTRY O RDERAGUSTAVO Performing Organization Address City/[facility]/ZIP Co de Phone Number [facility] Care Teams Deicer Tester Relationship Specialty Start Date End Date Steve Davis MD [employer] [address] [place] [phone] PCP - General Family Medicine 03/30/15
--- OUTSIDE RECORDS SUMMARY | 2024-04-29 23:56 | XMS_ITS | Encounter Summary ---
Author Organization [facility] Address [address] [place], [place] [address] [address] Care Team Providers Care Commissary Officer Name Role Phone Steve Davis MD Primary Care Provider [phone] Reason for Visit * Auth/Cert Specialty Diagnoses / Procedures Referred By Contac t Referred To Contact Obstetrics and Gynecology Procedures SECTION EMERGENCY [facility] 6w Mother Baby [address] [place] [address] Referral ID Status Reason Start Date Expiration Date Visits Re quested Visits Authorized [id number] 03/31/2015 09/27/2015 1 Encounter Details Date Type Department Care Team (Late st Contact Info) Description 03/30/2015 Surgery [facility] [address], [place] [id number] Elena Wei MD [address] [facility] [address] [place], [place] [id number] SECTION EMERGENCY Surgery Details Date/Time Status Location OR Service Patient Class Case Class Case Type Trauma Case? 03/30/2015 Posted [facility] Obstetrics Inpatient Panel [...] Comments Blood Pressure 156/90 04/03/2015 8:00 AM GREEN PIPEFITTER Pulse 83 04/03/2015 8:00 AM GREEN PIPEFITTER Temperature 36.7 ??C (98.1 ??F) 04/03/2015 8:00 AM CS T Respiratory Rate 16 04/03/2015 8:00 AM GREEN PIPEFITTER Oxygen Saturation 96% 03/31/2015 3:07 AM GREEN PIPEFITTER Inhaled Oxygen Concentration - - Weight - [...] Tabor MD - 04/20/2015 1:29 PM CST systems protection technician Discharge Summary 04/20/2015, 1:29 PM Date of Admission: 03/30/2015 Date of Discharge: 04/03/2015 Admission Diagnosis: 30 y.o. at 35w1d with DCDA twins, PTL, preeclampsia without severe features, bipolar disorder Discharge Diagnosis: 30 y.o. s/p section Service: Maternal Medicine Consults: Case Management HPI: Oanh Ortiz is a 30 y.o. at 35w1d; care with [facility]. She presented with increased contractions after [...] for the patient's : Vasile Ortiz September [[id number]] Date of 03/30/2015 Time of : 9:26 PM Sex: Female Weight: 2480 g (5 lb 7.5 oz) (1 min): 7 (5 min): 8 (10 min): Information for the patient's : Crotney Ortiz [[id number]] Date of 03/30/2015 Time of : 9:27 [...] results for input(s): ABORH in the last 44677 hours. Recent Labs Component Name 03/31/15 0519 [...] 4 Grams (4000 mg) / 24 hours. [id number] 50-325-40 MG tablet Commonly known as: FIORICET [...] Comments Your discharge diagnosis is delivery delivered [[id number]] No special diet needed Resume your normal [...] 6 weeks. Contact your provider Call your CATALOGING ASSISTANT if you have questions or concerns, or [...] weeks Darío Tabor MD 04/20/2015 1:29 PM N PIPEFITTER documented in this encounter Discharge Instructions * Discharge Instructions* Nitza Bliss RN - 04/03/2015 1:24 PM GREEN PIPEFITTER DELIVERED MOTHER DISCHARGE INSTRUCTIONS Refer to the Booklet given during your stay for more information. Please contact your waste oil pumper for the followin. Any burning or itching [...] example: your cell phone and cell phone superintendent water and sewer systems. PLEASE REMEMBER: 1. Always place your on his/her back to sleep. 2. Always use a car safety seat when transporting your child. N PIPEFITTER documented in this encounter Medications at Time [...] NICU. Nitza Bliss RN 04/03/2015 4:40 PM N PIPEFITTER * Jose Antonio Perez MD - 04/03/2015 [...] Discharge to home. Jose Antonio Perez MD N PIPEFITTER * Yady Jones RN - 04/03/2015 5:49 AM CST Vital signs stable and assessment within normal limits. Up ad maria elena, voiding without difficulty. Ambulating in hallway. Tolerating regular diet. and bonding well with baby A. Supplementing with formula and pumped breast milk. Baby B in NICU. N PIPEFITTER * Nitza Bliss RN - 04/02/2015 6:08 [...] home. Nitza Bliss RN 04/02/2015 6:10 PM N PIPEFITTER * Jose Antonio Perez MD - 04/02/2015 [...] Continue routine care. Jose Antonio Perez MD N PIPEFITTER * Brooke Sheikh, RIYA - 04/02/2015 6:35 [...] Denies having any dizziness during the night. N PIPEFITTER * Brooke Sheikh, RIYA - 04/01/2015 8:19 [...] Pt and verbalized understanding all information received. N PIPEFITTER * Vivian Lynch RN - 04/01/2015 5:18 [...] baby breast feeds. Bonding well with newborns. N PIPEFITTER * Jose Antonio Perez MD - 04/01/2015 [...] Continue routine care. Jose Antonio Perez MD N PIPEFITTER * Jennifer Meza RN - 04/01/2015 5:51 [...] bonding well. No concerns at this time. N PIPEFITTER * Yola Mueller RN - 03/31/2015 6:42 PM CST VSS. Pt up ad maria elena, voiding on her own. Tolerating regular diet. Pain is controlled with medication.Breast feeding well. To NICU to [place] with other infant. N PIPEFITTER * Jose Antonio Perez MD - 03/31/2015 [...] Continue routine care. Jose Antonio Perez MD N PIPEFITTER * Jennifer Meza RN - 03/31/2015 6:24 [...] night. Will continue to monitor. No concerns. N PIPEFITTER documented in this encounter H&P Notes * Elmira Ellis MD - 03/30/2015 7:46 PM CST PGY-1 Obstetric H&P CC: contractions HPI: 29 y.o. at 35w1d weeks gestation. Dating: by Last Menstrual Period and date of implantation (IVF). Estimated Date of Delivery: 05/03/15 Care: With [facility] Patient's is complicated by: Patient Active [...] Start Date End Date Taking? Authorizing Provider [id number] (FIORICET) 50-325-40 MG tablet Take 1 Tab [...] this 6. H/o depression- without meds, stable N PIPEFITTER Associated attestation - Elena Wei MD - 03/30/2015 10:06 PM GREEN PIPEFITTER Attending Admit Note: Obstetric H and P [...] this encounter Consult Notes * Terri Cardozo, APPLICATIONS PROGRAMMER - 04/01/2015 4:14 PM CSTAssociated Order(s): IP CONSULT TO CASE MANAGEMENT CATALOGING ASSISTANT CASE MANAGEMENT PSYCHOSOCIAL ASSESSMENT OB History Para [...] has a psych, that she sees in [place] and will call him if she starts to experience signs of depression. Pt is willing to return to [facility] if needed. 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 N PIPEFITTER documented in this encounter Nursing Notes * [...] any questions. Le Hoffman RN, BSN, IBCLC N PIPEFITTER * Le Hoffman RN - 04/02/2015 3:47 PM CST Oanh continues to breastfeed, pump, and supplement. She states that her baby girl 1 is latchingwell with nipple shield. She started supplementing with formula after each per medical office asst order for weight loss. She pumps after each feed and sends breastmilk to NICU to supplement baby girl 2. Discussed milk supply/maintenance and encouraged to continue latching baby first prior to supplementing. She pumps at this time and obtains about 10ml colostrum. Discussed plan at home forpumping and . Encouraged her to call as needed. Le Hoffman RN, BSN, IBCLC N PIPEFITTER * Le King RN - 03/31/2015 9:45 [...] questions tonight. Le King RN, MSN, IBCLC N PIPEFITTER * Funmilayo Malik RN - 03/31/2015 5:45 [...] as needed. Funmilayo Malik RNC, BSN, IBCLC N PIPEFITTER documented in this encounter OR Notes * Operative - Primo Melendez MD - 03/30/2015 9:59 PM CST Operative Report for Section Oanh Ortiz [id number] 03/30/2015 Preoperative Diagnosis:29 y.o. Intrauterine 35w1d, non-reassuring tracing, labor, dichorionic/diamniotic twin gestation, preeclampsia without severe features Postoperative Diagnosis: same Procedure(s): Primary Section via Pfannensteil Incision Surgeon: Elena Wei MD Vacuum Extractor Operator: Primo Melendez MD; Clara Saucedo MD Type of anesthesia: Epidural with Duramorph and General Complications: laceration of bregma (2cm superficial) EBL: 1400 cc IV Fluids: 1600 cc Urine OutPut: 100 cc clear yellow urine at the end of the procedure. Drains: Villegas catheter Packing/Dressing: alison pad and sterile dressing(s) applied Findings: Information for the patient's : Diana, Baby Girl Oanh [[id number]] Date of 03/30/2015 Time of : 9:26 PM Sex: Female Weight: 2480 g (5 lb 7.5 oz) (1 min): 7 (5 min): 8 (10 min): Information for the patient's : Brandi Ortiz Girl 2 Oanh [[id number]] Date of 03/30/2015 Time of : 9:27 [...] for the entire procedure. Primo Melendez MD N PIPEFITTER Associated attestation - Elena Wei MD - 03/30/2015 10:47 PM GREEN PIPEFITTER I agree with the resident's documentation, with [...] Patient Information Patient Name Sex Oanh Ortiz ([id number]) Female 1985 OB History Para Term AB SAB TAB Ectopic Multiple Living 3 2 1 1 1 0 1 1 3 # Outcome Date GA Labor/2nd Weight Sex Delivery Anes PTL Lv Name A1 A5 Location 3A 03/30/15 35w1d 2480 g (5 lb 7.5 oz) F , E Epidural,General Y 7 8 [facility] 3B 03/30/15 35w1d 2350 g (5 lb 2.9 oz) F , E Epidural,General Y 3 9 [facility] 2 Term 08/19/12 39w0d 3685 g (8 [...] 7(L) 22.9 -9(L) 25 4 Brandi Ortiz [[id number]] Patient Information Patient Name Sex Brandi Ortiz ([id number]) Female 03/30/2015 Procedures No data filed Group [...] X-Ray? MD Notif? Counted By Verified By Cloudcroft/Sharps/Sponges Closure of a Cavity within a Cavity Yes No Yes Eliazar Austin Madonna I., RN Instruments/Cloudcroft/Sharps/Sponges Initial / Baseline Yes No Yes Eliazar Austin Germaine C, RN performed at 2119 Instruments/Cloudcroft/Sharps/Sponges Beginning of Wound Closure Yes No Yes Eliazar Austin MadonnaI., RN Cloudcroft/Sharps/Sponges Skin Closure / End of Procedure Yes [...] 7 8 Diana Baby Girl Danny Hugo [[id number]] Patient Information Patient Name Sex Brandi Ortiz 2 ([id number]) Female 03/30/2015 Procedures No data filed Group [...] X-Ray? MD Notif? Counted By Verified By Cloudcroft/Sharps/Sponges Closure of a Cavity within a Cavity Yes No Yes Eliazar Austin Madonna I., RN Instruments/Cloudcroft/Sharps/Sponges Initial / Baseline Yes No Yes Eliazar Austin Germaine C, RN performed at 2119 Instruments/Cloudcroft/Sharps/Sponges Beginning of Wound Closure Yes No Yes Eliazar Austin MadonnaI., RN Cloudcroft/Sharps/Sponges Skin Closure / End of Procedure Yes [...] Rate: 2 Muscle Tone: 2 Total: 9 [place] Stabilization Equipment Checked by: chris Vigorous at [...] Emergent 1 minute 5 minutes 3 9 N PIPEFITTER documented in this encounter Plan of Treatment Not on file documented as of this encounter Procedures Procedure Name Priority Date/Time Associated Diagnosis Comments LAB RESULTS ORDER 04/04/2015 9:5 6 AM GREEN PIPEFITTER HGB HCT PANEL AM Draw 03/31/2015 5:19 AM GREEN PIPEFITTER PATHOLOGY TISSUE EXAM (STL) Routine 03/30/2015 9:52 PM GREEN PIPEFITTER Diagnosis unknown BLOOD GASES CORD KASEY (ISTAT) Routine 03/30/2015 9:51 PM GREEN PIPEFITTER BLOOD GASES CORD ART (ISTAT) Routine 03/30/2015 9:47 PM GREEN PIPEFITTER BLOOD GASES CORD KASEY (ISTAT) Routine 03/30/2015 9:43 PM GREEN PIPEFITTER BLOOD GASES CORD ART (ISTAT) Routine 03/30/2015 9:38 PM GREEN PIPEFITTER CBC W AUTO DIFFERENTIAL STAT 03/30/2015 8:01 PM GREEN PIPEFITTER SECTION (EMERGENCY) Case Notes documented in this encounter Results * LAB RESULTS ORDER (04/04/2015 9:56 AM GREEN PIPEFITTER) Narrative 04/04/2015 9:56 AM GREEN PIPEFITTER Ordered by an unspecified provider. Scanned Document LAB - THERAPEUTIC DR UG MONITORING ORDERABLES * (ABNORMAL) HGB HCT PANEL (03/31/2015 5:19 AM GREEN PIPEFITTER) Hemoglobin 7.7(L) 12.0 - 15.6 gm/dL 03/31/2015 6:03 AM GREEN PIPEFITTER [facility] Hematocrit 23.4(L) 35.9 - 45.5 % 03/31/2015 6:03 AM GREEN PIPEFITTER [facility] Blood BLOOD SPECIMEN / Unknown Lab Venipuncture / Unknown 03/31/2015 5:19 AM GREEN PIPEFITTER 03/31/2015 5:49 AM GREEN PIPEFITTER Primo Melendez MD LAB - HEMATOLOGY ORD ERABLES [facility] [address] [place] [address] * GROSS + MICRO EXAM (STL) (03/30/2015 9:52 PM GREEN PIPEFITTER) Case Report Surgical Pathology Report ? Case: [id number] ? Authorizing Provider: ??Elena Wei MD ?Collected: ? 03/30/2015 09:52 PM ? [facility]ing [facility] ? [facility] ? Received: ?03/31/2015 07:54 AM ? Pathologist: ? Arlen Newell MD ? Specimen: ?Placenta 3rd Trimester ? 04/04/2015 3:23 PM GREEN PIPEFITTER [facility] Final Diagnosis 1. Twin placenta: -- Dichorionic, diamniotic twin placenta 2. Placenta A with one cord clamp: -- Third trimester placenta, 640 grams -- Three-vessel umbilical cord with no pathologic diagnosis -- Chorioamniotic membranes with no pathologic diagnosis 3. Placenta B with two cord clamps: -- Three-vessel umbilical cord with no pathologic diagnosis -- Acute chorioamnionitis, mild MM/kaylee 04/04/2015 3:23 PM GREEN PIPEFITTER [facility] Clinical History Preeclampsia without severe features, twin gestation. 04/04/2015 3:23 PM [facility] Gross Description Received in formalin in [...] are no lesions or masses grossly identified. Scheme Technician sections are submitted as follows: A1 - Membranes and umbilical cord placenta A A2 - surface placenta A A3 - Maternal surface placenta A A4 - Membranes and umbilical cord placenta B A5 - and maternal surface placenta B A6 - Maternal surface placenta B DYT/dak 04/04/2015 3:23 PM [facility] Microscopic Description Sections of the placenta [...] villitis or infarction. MM/kaylee 04/04/2015 3:23 PM [facility] Pathology/Cytolo gy ENTIRE PLACENTA / Unknown 03/30/2015 9:52 PM GREEN PIPEFITTER 03/31/2015 7:54 AM GREEN PIPEFITTER Elena Wei MD LAB - PATHOLOGY/CYTO LOGY ORDERABLES [facility] [address] [place] [address] * (ABNORMAL) BLOOD GASES CORD KASEY (ISTAT) (03/30/2015 9:51 PM GREEN PIPEFITTER) pH Cord Venous POCT 7.30 7.28 - 7.40 pH 03/31/2015 5:57 AM [facility] pCO2 Cord Venous POCT 48(H) 35 - 45 mmHg 03/31/2015 5:57 AM [facility] pO2 Cord Venous POCT 26 22 - 33 mmHg 03/31/2015 5:57 AM [facility] HCO3 Cord Arterial POCT 24 22 - 24 mmol/L 03/31/2015 5:57 AM [facility] BE Cord Venous POCT Calc -3 -6 - 2 mmol/L 03/31/2015 5:57 AM [facility] TCO2 Cord Venous POCT 25 22 - 30 mmol/L 03/31/2015 5:57 AM [facility] O2 Saturation % Cord Venous Calc POCT 40 % 03/31/2015 5:57 AM [facility] Site CORD KASEY 03/31/2015 5:57 AM [facility] Sample iSTAT CORD V 03/31/2015 5:57 AM [facility] Blood CORD BLOOD SPECIMEN / Unknown 03/30/2015 9:51 PM GREEN PIPEFITTER 03/31/2015 5:52 AM GREEN PIPEFITTER Narrative [facility] - 03/31/2015 5:57 AM GREEN PIPEFITTER Twin A Jose Antonio Perez MD LAB - POINT OF CARE ORDERABLES [facility] [address] [place] [address] * (ABNORMAL) BLOOD GASES CORD ART (ISTAT) (03/30/2015 9:47 PM GREEN PIPEFITTER) pH Cord Arterial POCT 7.22 7.20 - 7.34 pH 03/31/2015 5:58 AM GREEN PIPEFITTER [facility] pCO2 Cord Arterial POCT 59.6(H) 45 - 55 mmHg 03/31/2015 5:58 AM GREEN PIPEFITTER [facility] pO2 Cord Arterial POCT 21 12 - 25 mmHg 03/31/2015 5:58 AM GREEN PIPEFITTER [facility] HCO3 Cord Arterial POCT 24.1 15 - 29 mmol/L 03/31/2015 5:58 AM [facility] BE Cord Arterial POCT -5(L) -2.9 - 8.3 mmol/L 03/31/2015 5:58 AM GREEN PIPEFITTER [facility] TCO2 Cord Arterial POCT 26 mmol/L 03/31/2015 5:58 AM [facility] O2 Saturation Cord Art % Calc POCT 25 % 03/31/2015 5:58 AM GREEN PIPEFITTER [facility] Site CORD ART 03/31/2015 5:58 AM GREEN PIPEFITTER [facility] Sample iSTAT CORD A 03/31/2015 5:58 AM [facility] Blood CORD BLOOD SPECIMEN / Unknown 03/30/2015 9:47 PM GREEN PIPEFITTER 03/31/2015 5:51 AM GREEN PIPEFITTER Narrative [facility] - 03/31/2015 5:58 AM GREEN PIPEFITTER Twin A Jose Antonio Perez MD LAB - POINT OF CARE ORDERABLES [facility] [address] [place] [address] * (ABNORMAL) BLOOD GASES CORD KASEY (ISTAT) (03/30/2015 9:43 PM GREEN PIPEFITTER) pH Cord Venous POCT 7.16(L) 7.28 - 7.40 pH 03/30/2015 10:27 PM GREEN PIPEFITTER [facility] pCO2 Cord Venous POCT 62(H) 35 - 45 mmHg 03/30/2015 10:27 PM GREEN PIPEFITTER [facility] pO2 Cord Venous POCT 12(L) 22 - 33 mmHg 03/30/2015 10:27 PM [facility] HCO3 Cord Arterial POCT 22 22 - 24 mmol/L 03/30/2015 10:27 PM [facility] BE Cord Venous POCT Calc -8(L) -6 - 2 mmol/L 03/30/2015 10:27 PM [facility] TCO2 Cord Venous POCT 24 22 - 30 mmol/L 03/30/2015 10:27 PM [facility] O2 Saturation % Cord Venous Calc POCT 8 % 03/30/2015 10:27 PM [facility] Site CORD KASEY 03/30/2015 10:27 PM [facility] Sample iSTAT CORD V 03/30/2015 10:27 PM [facility] Blood CORD BLOOD SPECIMEN / Unknown 03/30/2015 9:43 PM GREEN PIPEFITTER 03/30/2015 10:27 PM [facility] Jose Antonio Perez MD LAB - POINT OF CARE ORDERABLES Performing Organization Address City/State/[facility] Co de Phone Number [facility] [address] [place] [address] * (ABNORMAL) BLOOD GASES CORD ART (ISTAT) (03/30/2015 9:38 PM GREEN PIPEFITTER) pH Cord Arterial POCT 7.09(L) 7.20 - 7.34 pH 03/30/2015 10:27 PM [facility] pCO2 Cord Arterial POCT 75.9(HH) 45 - 55 mmHg 03/30/2015 10:27 PM [facility] pO2 Cord Arterial POCT 7(L) 12 - 25 mmHg 03/30/2015 10:27 PM [facility] HCO3 Cord Arterial POCT 22.9 15 - 29 mmol/L 03/30/2015 10:27 PM [facility] BE Cord Arterial POCT -9(L) -2.9 - 8.3 mmol/L 03/30/2015 10:27 PM [facility] TCO2 Cord Arterial POCT 25 mmol/L 03/30/2015 10:27 PM [facility] O2 Saturation Cord Art % Calc POCT 4 % 03/30/2015 10:27 PM [facility] Site CORD ART 03/30/2015 10:27 PM [facility] Sample iSTAT CORD A 03/30/2015 10:27 PM [facility] Blood CORD BLOOD SPECIMEN / Unknown 03/30/2015 9:38 PM GREEN PIPEFITTER 03/30/2015 10:27 PM GREEN PIPEFITTER Jose Antonio Perez MD LAB - POINT OF CARE ORDERABLES [facility] [address] [place] [address] * (ABNORMAL) CBC W AUTO DIFFERENTIAL (03/30/2015 8:01 PM GREEN PIPEFITTER) WBC 12.4(H) 4.4 - 10.7 x10^9/L 03/30/2015 8:10 PM [facility] WBC Corrected x10^9/L 03/30/2015 8:10 PM [facility] RBC 3.99 3.80 - 5.20 x10^12/L 03/30/2015 8:10 PM [facility] Hemoglobin 10.6(L) 12.0 - 15.6 gm/dL 03/30/2015 8:10 PM [facility] Hematocrit 32.1(L) 35.9 - 45.5 % 03/30/2015 8:10 PM [facility] MCV 80.5(L) 80.7 - 98.3 fl 03/30/2015 8:10 PM [facility] MCH 26.6(L) 26.7 - 34.0 pg 03/30/2015 8:10 PM [facility] MCHC 33.0 30.8 - 35.9 gm/dL 03/30/2015 8:10 PM [facility] Platelet Count 173 153 - 416 x10^9/L 03/30/2015 8:10 PM [facility] RDW-CV 18.0(H) 12.1 - 14.9 % 03/30/2015 8:10 PM [facility] MPV 11.3 9.4 - 12.9 fl 03/30/2015 8:10 PM [facility] Neutrophils % 78.7(H) 44.0 - 73.0 % 03/30/2015 8:10 PM [facility] Lymphocytes % 13.9(L) 20.0 - 43.0 % 03/30/2015 8:10 PM [facility] Monocytes % 6.9 5.0 - 13.0 % 03/30/2015 8:10 PM [facility] Eosinophils % 0.1 0.0 - 6.0 % 03/30/2015 8:10 PM [facility] Basophils % 0.1 0.0 - 2.0 % 03/30/2015 8:10 PM [facility] Immature Granulocytes 0.3 0 - 1 % 03/30/2015 8:10 PM [facility] Neutrophil Absolute 9.74(H) 2.01 - 7.14 x10^9/L 03/30/2015 8:10 PM [facility] Lymphocytes Absolute 1.72 1.07 - 3.94 x10^9/L 03/30/2015 8:10 PM [facility] Monocytes Absolute 0.86 0.26 - 1.07 x10^9/L 03/30/2015 8:10 PM [facility] Eosinophils Absolute 0.01 0 - 0.47 x10^9/L 03/30/2015 8:10 PM [facility] Basophils Absolute 0.01 0 - 0.08 x10^9/L 03/30/2015 8:10 PM [facility] Immature Granulocytes Absolute 0.04 0.00 - 0.06 x10^9/L 03/30/2015 8:10 PM [facility] Blood BLOOD SPECIMEN / Unknown Venipuncture / Unknown 03/30/2015 8:01 PM GREEN PIPEFITTER 03/30/2015 8:05 PM GREEN PIPEFITTER Jose Antonio Perez MD LAB - HEMATOLOGY ORD ERABLES [facility] Organization Address City/State/[facility] Co de Phone Number [facility] [address] [place] [address] documented in this encounter Visit Diagnoses Not on filedocumented in this encounter Active and Recently Administered Medications Times are shown in GREEN PIPEFITTER. Scheduled Medication Order 04/01/2015 04/02/2015 04/03/2015 docusate [...] RN) documented in this encounter Care Teams Commissary Officer Relationship Specialty Start Date End Date Steve Davis MD [address] [place] [address] PCP - General Family Medicine 03/30/15 documented as of this encounter
--- OUTSIDE RECORDS SUMMARY | 2024-04-29 23:56 | XMS_ITS | Encounter Summary ---
Author Organization [facility] Address [address] [place] [id number] Care Team Providers Care Shoe Treer Name Role Phone Steve Davis MD Primary Care Provider [phone] Reason for Visit * Reason Comments Hypertension Encounter Details Date Type Department Care Team (Latest Contact Info) Description 03/29/2015 8:18 AM DAYCARE PROVIDER - 03/29/2015 1:40 PM DAYCARE PROVIDER Hospital Encounter [facility] [address] [place] [address] Jose Antonio Perez MD [address] [place] [address] Discharge Disposition: Home or Self Care Social [...] Comments Blood Pressure 120/71 03/29/2015 1:32 PM DAYCARE PROVIDER Pulse - - Temperature 36.7 ??C (98 ??F) 03/29/2015 9:35 AM DAYCARE PROVIDER Respiratory Rate 18 03/29/2015 1:32 PM DAYCARE PROVIDER Oxygen Saturation - - Inhaled Oxygen Concentration - - Weight 109.8 kg (242 lb) 03/29/2015 8:47 AM DAYCARE PROVIDER Height 167.6 cm (5' 6 ) 03/29/2015 8:47 AM DAYCARE PROVIDER Body Mass Index 39.06 03/29/2015 8:47 AM DAYCARE PROVIDER documented in this encounter Functional Status Functional [...] Randee Connell RN - 03/29/2015 1:39 PM DAYCARE PROVIDER UNDELIVERED PATIENT DISCHARGE INSTRUCTIONS CALL YOUR DOCTOR [...] pains, cramps, nausea,or diarrhea. Important Telephone Number: [phone] ARE PROVIDER documented in this encounter Medications at Time [...] Delivery: 05/03/15 care: is with Dr. Tamez ([facility]). Patient's is complicated by: Patient Active [...] monitoring with no decels and reactive tracing [place]: irritability, irregular ctx Physical Exam: General: alert, [...] Yellow, Dark Yellow Clarity UA Clear Specific [place] UA 1.015 1.005-1.030 pH UA 7.0 5.0-8.0 [...] 66.5 44.0-73.0 % Lymph 23.4 20.0-43.0 % [place] 8.5 5.0-13.0 % Eos 0.9 0.0-6.0 % Baso 0.2 0.0-2.0 % Immature Grans 0.5 0-1 % Neutro Abs 5.43 2.01-7.14 x10^9/L Lymph Abs 1.91 1.07-3.94 x10^9/L [place] Abs 0.69 0.26-1.07 x10^9/L Eosin Abs 0.07 [...] Ramos. Darío Tabor MD 03/29/2015 9:37 AM ARE PROVIDER documented in this encounter Procedure Notes * Jose Antonio Perez MD - 03/29/2015 4:48 PM CST Nonstress test: non-stress test (A): baseline rate 125, moderate variability, reactive, no decels non-stress test (B): baseline rate 115-135, moderate variability, reactive, one decel with dahlia to 90 and return to baseline in 4 min followed by >3hrs of monitoring with no decels and reactive tracing [place]: irritability, irregular ctx Impression: Reassuring testing for both babies Recommend: follow up studies as clinically indicated. Jose Antonio Perez MD ARE PROVIDER documented in this encounter Plan of Treatment Scheduled Orders Name Type Priority Associated Diagnoses Orde r Schedule URINALYSIS OBSTETRICS - POINT OF CARE Point of Care Testing STAT Secondary hypertension, unspecified ONCE for 1 Occurrences starting 03/29/2015 until 03/29/2015 documented as of this encounter Procedures Procedure Name Priority Date/Time Associated Diagnosis Comments IMAGING/RADIOLOGY/XRAY RESULTS ORDER 04/12/2015 4:14 PM DAYCARE PROVIDER PROTEIN CREATININE RATIO URINE RANDOM PNL STAT 03/29/2015 9:52 AM DAYCARE PROVIDER Secondary hypertension, unspecified URIC ACID BLOOD STAT 03/29/2015 9:24 AM DAYCARE PROVIDER Secondary hypertension, unspecified CBC W AUTO DIFFERENTIAL STAT 03/29/2015 9:24 AM DAYCARE PROVIDER Secondary hypertension, unspecified COMPREHENSIVE METABOLIC PANEL STAT 03/29/2015 9:24 AM DAYCARE PROVIDER Secondary hypertension, unspecified LDH BLOOD STAT 03/29/2015 9:24 AM DAYCARE PROVIDER Secondary hypertension, unspecified URINALYSIS REFLEX MICROSCOPIC REFLEX CULTURE STAT 03/29/2015 9:10 AM DAYCARE PROVIDER Secondary hypertension, unspecified CULTURE URINE Routine 03/29/2015 9:10 AM DAYCARE PROVIDER Secondary hypertension, unspecified documented in this encounter Results * IMAGING/RADIOLOGY/XRAY RESULTS ORDER (04/12/2015 4:14 PM DAYCARE PROVIDER) Anatomical Region Laterality Modality Other Narrative 04/12/2015 4:14 PM DAYCARE PROVIDER Ordered by an unspecified provider. Scanned Document IMAGING * PROTEIN CREATININE RATIO URINE RANDOM PNL (03/29/2015 9:52 AM DAYCARE PROVIDER) Protein Urine 26.8 mg/dL 03/29/2015 9:[address] [facility] Creatinine Urine 92 mg/dL 03/29/2015 9:[address] [facility] Protein/Creatin ine Ratio Urine 0.29 03/29/2015 9:[address] [facility] Urine URINE SPECIMEN OBTAINED BY CLEAN CATCH PROCEDURE / Unknown Collection / Unknown 03/29/2015 9:52 AM DAYCARE PROVIDER 03/29/2015 9:23 AM DAYCARE PROVIDER Lorena Redd [employer] OPERATOR LAB - URINE C HEMISTRY ORDERABLES Performing Organization Address [facility] de Phone Number [facility] [address] [place] [address] * LDH BLOOD (03/29/2015 9:24 AM DAYCARE PROVIDER) LDH 192 100 - 200 U/L 03/29/2015 9:[address] [facility] Blood BLOOD SPECIMEN / Unknown Venipuncture / Unknown 03/29/2015 9:24 AM DAYCARE PROVIDER 03/29/2015 9:23 AM DAYCARE PROVIDER Lorena Redd [employer] OPERATOR LAB - SUPERVISOR TAN ROOM RY ORDERABLES Performing Organization Address [facility]/ZIP Co de Phone Number [facility] [address] [place] [address] * URIC ACID BLOOD (03/29/2015 9:24 AM DAYCARE PROVIDER) Pathologist [facility] Uric Acid 3.6 3.0 - 8.5 mg/dL 03/29/2015 9:53 AM [facility] Blood BLOOD SPECIMEN / Unknown Venipuncture / Unknown 03/29/2015 9:24 AM DAYCARE PROVIDER 03/29/2015 9:23 AM DAYCARE PROVIDER Lorena Redd [employer] OPERATOR LAB - SUPERVISOR TAN ROOM RY ORDERABLES Performing Organization Address [facility] Co de Phone Number [facility] [address] [place] [address] * (ABNORMAL) COMPREHENSIVE METABOLIC PANEL (03/29/2015 9:24 AM DAYCARE PROVIDER) Pathologist [facility] Glucose 87 74 - 106 mg/dL 03/29/2015 9:53 AM [facility] Sodium 140 136 - 145 mmol/L 03/29/2015 9:53 AM [facility] Potassium 3.2(L) 3.5 - 5.1 mmol/L 03/29/2015 9:53 AM [facility] Chloride 109(H) 98 - 107 mmol/L 03/29/2015 9:53 AM [facility] CO2 20(L) 22 - 31 mmol/L 03/29/2015 9:53 AM [facility] Calcium 8.1(L) 8.5 - 10.1 mg/dL 03/29/2015 9:53 AM [facility] Anion Gap 11 5 - 20 mmol/L 03/29/2015 9:53 AM [facility] BUN 2(L) 7 - 21 mg/dL 03/29/2015 9:53 AM [facility] Creatinine 0.43(L) 0.50 - 1.30 mg/dL 03/29/2015 9:53 AM [facility] Alkaline Phosphatase 132(H) 38 - 126 U/L 03/29/2015 9:53 AM [facility] ALT 14 12 - 78 U/L 03/29/2015 9:53 AM [facility] AST 13 5 - 40 U/L 03/29/2015 9:53 AM [facility] Protein Total 5.6(L) 6.4 - 8.2 gm/dL 03/29/2015 9:53 AM [facility] Albumin 2.2(L) 3.4 - 5.0 gm/dL 03/29/2015 9:53 AM [facility] Bilirubin Total 0.3 0.2 - 1.0 mg/dL 03/29/2015 9:53 AM [facility] eGFR by MDRD >60 >60 mL/min/1.7 3m2 03/29/2015 9:53 AM [facility] eGFR by MDRD >60 >60 mL/min/1.7 3m2 03/29/2015 9:53 AM [facility] Blood BLOOD SPECIMEN / Unknown Venipuncture / Unknown 03/29/2015 9:24 AM DAYCARE PROVIDER 03/29/2015 9:23 AM [facility] Lorena Redd [employer] OPERATOR LAB - SUPERVISOR TAN ROOM RY ORDERABLES Performing Organization Address City/State/[facility] Co de Phone Number [facility] [address] [place] [address] * (ABNORMAL) CBC W AUTO DIFFERENTIAL (03/29/2015 9:24 AM [facility]) WBC 8.2 4.4 - 10.7 x10^9/L 03/29/2015 9:32 AM [facility] WBC Corrected x10^9/L 03/29/2015 9:32 AM [facility] RBC 3.73(L) 3.80 - 5.20 x10^12/L 03/29/2015 9:32 AM [facility] Hemoglobin 10.0(L) 12.0 - 15.6 gm/dL 03/29/2015 9:32 AM [facility] Hematocrit 30.3(L) 35.9 - 45.5 % 03/29/2015 9:32 AM [facility] MCV 81.2 80.7 - 98.3 fl 03/29/2015 9:32 AM [facility] MCH 26.8 26.7 - 34.0 pg 03/29/2015 9:32 AM [facility] MCHC 33.0 30.8 - 35.9 gm/dL 03/29/2015 9:32 AM [facility] Platelet Count 153 153 - 416 x10^9/L 03/29/2015 9:32 AM [facility] RDW-CV 18.1(H) 12.1 - 14.9 % 03/29/2015 9:32 AM [facility] MPV 11.4 9.4 - 12.9 fl 03/29/2015 9:32 AM [facility] Neutrophils % 66.5 44.0 - 73.0 % 03/29/2015 9:32 AM [facility] Lymphocytes % 23.4 20.0 - 43.0 % 03/29/2015 9:32 AM [facility] Monocytes % 8.5 5.0 - 13.0 % 03/29/2015 9:32 AM [facility] Eosinophils % 0.9 0.0 - 6.0 % 03/29/2015 9:32 AM [facility] Basophils % 0.2 0.0 - 2.0 % 03/29/2015 9:32 AM [facility] Immature Granulocytes 0.5 0 - 1 % 03/29/2015 9:32 AM [facility] Neutrophil Absolute 5.43 2.01 - 7.14 x10^9/L 03/29/2015 9:32 AM [facility] Lymphocytes Absolute 1.91 1.07 - 3.94 x10^9/L 03/29/2015 9:32 AM [facility] Monocytes Absolute 0.69 0.26 - 1.07 x10^9/L 03/29/2015 9:32 AM [facility] Eosinophils Absolute 0.07 0 - 0.47 x10^9/L 03/29/2015 9:32 AM [facility] Basophils Absolute 0.02 0 - 0.08 x10^9/L 03/29/2015 9:32 AM [facility] Immature Granulocytes Absolute 0.04 0.00 - 0.06 x10^9/L 03/29/2015 9:32 AM [facility] Blood BLOOD SPECIMEN / Unknown Venipuncture / Unknown 03/29/2015 9:24 AM DAYCARE PROVIDER 03/29/2015 9:23 AM [facility] Lorena Redd [employer] OPERATOR LAB - HEMATOL OGY ORDERABLES [facility] [address] [place] [address] * CULTURE URINE (03/29/2015 9:10 AM DAYCARE PROVIDER) Culture <10,000 CFU/mL normal urogenital augustine SATURNINO 03/31/2015 9:12 AM DAYCARE PROVIDER [facility] Urine URINE SPECIMEN OBTAINED BY CLEAN CATCH PROCEDURE / Unknown Collection / Unknown 03/29/2015 9:10 AM DAYCARE PROVIDER 03/29/2015 9:23 AM DAYCARE PROVIDER Lorena Byrne Ivania [employer] OPERATOR LAB - MICROBI OLOGY ORDERABLES [facility] [address] [place] [phone] * (ABNORMAL) URINALYSIS ROUTINE W/REFLEX TO CULTURE (03/29/2015 9:10 AM DAYCARE PROVIDER) Color UA Yellow Straw, Yellow, Dark Yellow 03/29/2015 9:36 AM [facility] Clarity UA Clear 03/29/2015 9:36 AM [facility] Specific [place] UA 1.015 1.005 - 1.030 03/29/2015 9:36 AM [facility] pH UA 7.0 5.0 - 8.0 pH 03/29/2015 9:36 AM [facility] Protein UA Negative Negative 03/29/2015 9:[address] [facility] Blood UA Negative Negative 03/29/2015 9:[address] [facility] Leukocyte UA 2+(A) Negative 03/29/2015 9:[address] [facility] Nitrite UA Negative Negative 03/29/2015 9:36 AM [facility] Glucose UA Negative Negative 03/29/2015 9:[address] [facility] Ketone UA Negative Negative 03/29/2015 9:[address] [facility] Bilirubin UA Negative Negative 03/29/2015 9:36 AM [facility] Urobilinogen UA 0.2 0.1 - 1.0 EU/dL 03/29/2015 9:36 AM [facility] WBC UA Auto 10-20(A) 0-2, 2-5 # /hpf 03/29/2015 9:[address] [facility] RBC UA Auto 2-5 0-2, 2-5 # /hpf 03/29/2015 9:[address] [facility] Epithelial Cell UA Auto 2-5 0-2, 2-5 # /hpf 03/29/2015 9:[address] [facility] Bacteria UA Auto 2+(A) None seen 03/29/2015 9:[address] [facility] Hyaline Casts UA Auto 2-5(A) 0 - 2 #/lpf 03/29/2015 9:[address] [facility] Reflex Status Culture to follow 03/29/2015 9:[address] [facility] Urine URINE SPECIMEN OBTAINED BY CLEAN CATCH PROCEDURE / Unknown Collection / Unknown 03/29/2015 9:10 AM DAYCARE PROVIDER 03/29/2015 9:23 AM DAYCARE PROVIDER Lorena Berumenalmaz [employer] OPERATOR LAB - URINALY SIS ORDERABLES Performing Organization Address City/State/[facility] Co de Phone Number [facility] [address] [place] [address] documented in this encounter Visit Diagnoses Diagnosis Secondary hypertension, unspecified- Primary documented in this encounter Administered Medications Inactive Administered Medications - up to 3 most recent administrations Medication Order MAR Action Action Date Dose Rate Site diphenhydrAMINE (BENADRYL) injection 25 mg 25 mg, Intravenous, ONCE, 1 dose, On Sat03/29/15 at 0930, Max intravenous rate = 25 mg/min $ Given 03/29/2015 9:37 AM DAYCARE PROVIDER 25 mg metoclopramide (REGLAN) injection 10 mg 10 mg, Intravenous, ONCE, 1 dose, On Sat03/29/15 at 0930 $ Given 03/29/2015 9:36 AM DAYCARE PROVIDER 10 mg documented in this encounter Active and Recently Administered Medications Times are shown in DAYCARE PROVIDER. Scheduled Medication Order 03/27/2015 03/28/2015 03/29/2015 diphenhydrAMINE [...] row) documented in this encounter Care Teams Shoe Treer Relationship Specialty Start Date End Date Steve Davis MD [address] [place] [address] PCP - General Family Medicine 11/14/14 03/29/15 documented as of this encounter
--- OUTSIDE RECORDS SUMMARY | 2024-04-29 23:56 | XMS_ITS | Encounter Summary ---
Author Organization [facility] Address [address] [place], [place] [address] [address] Care Team Providers Care Professor Of German Name Role Phone Steve Davis MD Primary Care Provider [phone] Reason for Visit * Reason Comments Blurred Vision Cramps Encounter Details Date Type Department Care Team (Latest Contact Info) Description 02/25/2015 1:17 PM CDT - 02/25/2015 3:20 PM CDT Hospital Encounter [facility] [address] [place] [address] Stacia Marlow MD [address] [address] Discharge Disposition: Home or Self [...] this encounter Discharge Instructions * Discharge Instructions* Li Booker RN - 02/25/2015 3:20 PM CDT [...] pains, cramps, nausea,or diarrhea. Important Telephone Number: [facility] [phone] documented in this encounter Medications at Time [...] Delivery: 05/03/15 care: is with Dr. Tamez ([facility]). Patient's is complicated by: Patient [...] rate 125-130, moderate variability, reactive, no decels [place]: no ctx Physical Exam: General: alert, cooperative, [...] Yellow, Dark Yellow Clarity UA Clear Specific [place] UA 1.016 1.005-1.030 pH UA 7.0 5.0-8.0 [...] IMAGING/RADIOLOGY/XR AY RESULTS ORDER 03/14/2015 3:35 PM STAVE BLOCK ROLLER URINALYSIS REFLEX MICROSCOPIC REFLEX CULTURE STAT 02/25/2015 2:45 PM CDT Dichorionic diamniotic twin (HCC) CULTURE URINE Routine 02/25/2015 2:45 PM CDT Dichorionic diamniotic twin (HCC) documented in this encounter Results * IMAGING/RADIOLOGY/XRAY RESULTS ORDER (03/14/2015 3:35 PM STAVE BLOCK ROLLER) Anatomical Region Laterality Modality Other Narrative 03/14/2015 3:35 PM STAVE BLOCK ROLLER Ordered by an unspecified provider. Scanned Document IMAGING * CULTURE URINE (02/25/2015 2:45 PM CDT) Culture No Growth (<1,000 CFU/mL) SATURNINO 02/27/2015 9:07 AM STAVE BLOCK ROLLER [facility] Urine URINE SPECIMEN OBTAINED BY CLEAN CATCH PROCEDURE / Unknown Collection / Unknown 02/25/2015 2:45 PM CDT 02/25/2015 2:48 PM CDT Darío Tabor MD LAB - MICROBIOLOGY O RDERABLES [facility] [address] [place], [place] [address], [facility] [phone] * (ABNORMAL) URINALYSIS ROUTINE W/REFLEX TO CULTURE (02/25/2015 2:45 PM CDT) Color UA Yellow Straw, Yellow, Dark Yellow 02/25/2015 2:59 PM CDT [facility] Clarity UA Clear 02/25/2015 2:59 PM CDT [facility] Specific [place] UA 1.016 1.005 - 1.030 02/25/2015 2:59 PM CDT [facility] pH UA 7.0 5.0 [...] UA Negative Negative 02/25/2015 2:59 PM CDT [facility] Urobilinogen UA 0.2 0.1 - 1.0 EU/dL 02/25/2015 2:59 PM CDT [facility] WBC UA Auto 2-5 0-2, 2-5 # /hpf 02/25/2015 2:59 PM CDT [facility] RBC UA Auto 2-5 0-2, 2-5 # /hpf 02/25/2015 2:59 PM CDT [facility] Epithelial Cell UA Auto 2-5 0-2, 2-5 # /hpf 02/25/2015 2:59 PM CDT [facility] Bacteria UA Auto 1+(A) None seen 02/25/2015 2:59 PM CDT [facility] Reflex Status Culture to follow 02/25/2015 2:59 PM CDT [facility] Urine URINE SPECIMEN OBTAINED BY CLEAN CATCH PROCEDURE / Unknown Collection / Unknown 02/25/2015 2:45 PM CDT 02/25/2015 2:48 PM CDT Darío Tabor MD LAB - URINALYSIS ORD ERABLES [facility] [address] [place] [address] documented in this encounter Visit Diagnoses Diagnosis Dichorionic diamniotic twin (HCC) Twin , antepartum documented in this encounter Care Teams Professor Of German Relationship Specialty Start Date End Date Steve Davis MD [address] [place] [address] PCP - General Family Medicine 11/14/14 03/29/15 documented as of this encounter
--- OUTSIDE RECORDS SUMMARY | 2024-04-29 23:56 | XMS_ITS | Encounter Summary ---
Author Organization [facility] Address [address] [place], [place] [address] [address] Care Team Providers Care Device Sales Consultant Name Role Phone Steve Davis MD Primary Care Provider [phone] Reason for Visit * Reason Comments Laboring * Auth/Cert - Closed Specialty Diagnoses / Procedures Referred By Renee t Referred To Contact Referral ID Status Reason Start Date Expiration Date Visits Re quested Visits Authorized [id number] Closed 1 1 Encounter Details Date Type Department Care Team (Latest Contact Info) Description 03/30/2015 2:39 AM CERTIFIED ALCOHOL COUNSELOR - 03/30/2015 5:53 PM CERTIFIED ALCOHOL COUNSELOR Hospital Encounter [facility] 5 [address] [place] [address] Jose Antonio Perez MD [facility] [place] [address] Obstetrics Discharge Disposition: Home or Self Care [...] Comments Blood Pressure 123/78 03/30/2015 2:56 PM CERTIFIED ALCOHOL COUNSELOR Pulse - - Temperature 36.8 ??C (98.3 ??F) 03/30/2015 2:15 PM CS T Respiratory Rate 18 03/30/2015 2:45 AM CERTIFIED ALCOHOL COUNSELOR Oxygen Saturation 97% 03/30/2015 6:22 AM CERTIFIED ALCOHOL COUNSELOR Inhaled Oxygen Concentration - - Weight 112.9 kg (249 lb) 03/30/2015 2:45 AM CERTIFIED ALCOHOL COUNSELOR Height 167.6 cm (5' 6 ) 03/30/2015 2:45 AM CERTIFIED ALCOHOL COUNSELOR Body Mass Index 40.19 03/30/2015 2:45 AM CERTIFIED ALCOHOL COUNSELOR documented in this encounter Functional Status [...] Yady Taylor RN - 03/30/2015 5:44 PM CERTIFIED ALCOHOL COUNSELOR UNDELIVERED PATIENT DISCHARGE INSTRUCTIONS CALL YOUR DOCTOR [...] hands. ?? Stomach pains, cramps, nausea,or diarrhea. IFIED ALCOHOL COUNSELOR documented in this encounter Medications at [...] void. IV discontinued. Patient given discharge instructions. IFIED ALCOHOL COUNSELOR * Kole Carpenter MD - 03/30/2015 5:07 [...] Dr. Chris Carpenter MD 03/30/2015 5:09 PM IFIED ALCOHOL COUNSELOR * Amanda Morgan RN - 03/30/2015 3:23 PM CST Patient requesting to have epidural turned off and to be discharged home r/t labor not progressing as previously discussed as a possibility for plan of care. Dr. Manrique notified. Amanda Morgan RN IFIED ALCOHOL COUNSELOR * René Mullins MD - 03/30/2015 2:19 [...] mmHg Physical Exam: Cervical Exam (per Dr. Carepnter) Dilation (cm): 6.0 Effacement: 100 Station: -3 [...] Plan: 1. Spontaneous Labor 1. Currently: 1. [place]: inconclusive for contractions 2. FHT: reassuring 3. [...] of René Mullins 03/30/2015 2:19 PM MS3 IFIED ALCOHOL COUNSELOR Associated attestation - Darío Tabor MD - 03/30/2015 5:13 PM CERTIFIED ALCOHOL COUNSELOR Reviewed medical student note for educational purposes. [...] rate 125-135, moderate variability, reactive, no decels [place]: irregular, every 5-10 minutes Cervical Exam: Dilation [...] x2 Darío Tabor MD 03/30/2015 12:05 PM IFIED ALCOHOL COUNSELOR * Terri Mims I - 03/30/2015 10:58 [...] Terri Mims DTR 03/30/2015 11:02 AM Beeper [phone] IFIED ALCOHOL COUNSELOR * René Mullins MD - 03/30/2015 9:57 [...] for IOL at 37 weeks. 4. Currently: B[place]ide: q3mins; FHT: reassuring; Cervix: 6.0/90/-1 5. Membranes intact, bulging bag 6. Monitor for cervical change René Mullins 03/30/2015 9:58 AM MS3 IFIED ALCOHOL COUNSELOR Associated attestation - Darío Tabor MD - 03/30/2015 5:13 PM CERTIFIED ALCOHOL COUNSELOR Reviewed medical student note for educational purposes. [...] form was signed. Clara Saucedo MD 03/30/2015 IFIED ALCOHOL COUNSELOR documented in this encounter H&P Notes * Elmira Ellis MD - 03/30/2015 3:29 AM CST PGY-1 Obstetric H&P CC: Contractions HPI: 29 y.o. at 35w1d weeks gestation. Dating: LMP and date of Implantation (IVF) Estimated Date of Delivery: 05/03/15 Care: With [facility] [employer] [facility] Patient's is complicated by: Patient Active [...] 1 1 # Outcome Date GA Lbr Rya/2nd Weight Sex Delivery Anes PTL Lv 3 [...] times daily before meals Yes ProviderAnabel MD ibsrqeqnwq-ckdgjfkeukiml-bxfirmuy (FIORICET) 50-325-40 MG tablet Take 1 Tab [...] B: Baseline rate 135, reactive, moderate variability. B[place]ide: Contractions every 1-4 minutes. Physical Exam: General: [...] labor 29 y.o. at 35w1d Patient of [facility] 1. labor: cervix BBOW. GBS [...] Dr. Chris Ellis MD 03/30/2015 4:57 AM IFIED ALCOHOL COUNSELOR Associated attestation - Jose Antonio Perez MD - 03/30/2015 10:18 AM CERTIFIED ALCOHOL COUNSELOR Oanh Ortiz is a , 29 y.o. female at 35w1d weeks gestation admitted for Pre-term labor and Multiple gestation She reports good movement. Patient reports: no bleeding, no leakingand occasional contractions.. care at [facility] Her current obstetrical history is significant [...] mouth 3 times daily before meals ??? lxsfyukkkm-prrlehgpnjsea-cpcrywad (FIORICET) 50-325-40 MG tablet Take 1 Tab [...] Yellow, Dark Yellow Clarity UA Clear Specific [place] UA 1.007 1.005-1.030 pH UA 7.5 5.0-8.0 [...] 44.0-73.0 % Lymph 19.0 (L) 20.0-43.0 % [place] 7.5 5.0-13.0 % Eos 0.6 0.0-6.0 % Baso 0.2 0.0-2.0 % Immature Grans 0.5 0-1 % Neutro Abs 7.51 (H) 2.01-7.14 x10^9/L Lymph Abs 1.98 1.07-3.94 x10^9/L [place] Abs 0.78 0.26-1.07 x10^9/L Eosin Abs 0.06 [...] SCREEN PANEL STAT 03/30/2015 4 :22 AM CERTIFIED ALCOHOL COUNSELOR Dichorionic diamniotic twin (HCC) CBC W AUTO DIFFERENTIAL STAT 03/30/2015 4:22 AM CERTIFIED ALCOHOL COUNSELOR Dichorionic diamniotic twin (HCC) URINALYSIS REFLEX MICROSCOPIC REFLEX CULTURE STAT 03/30/2015 3:24 AM CERTIFIED ALCOHOL COUNSELOR Threatened labor, third trimester (HCC) documented in this encounter Results * TYPE + SCREEN PANEL (03/30/2015 4:22 AM CERTIFIED ALCOHOL COUNSELOR) ABO A 03/30/2015 5:04 AM [facility] Rh Type Positive 03/30/2015 5:04 AM [facility] Comment:History check perfor med. No retype required. Antibody Screen Negative 03/30/2015 5:04 AM [facility] Miscellaneous samples (specimen) BLOOD SPECIMEN / Unknown 03/30/2015 4:22 AM CERTIFIED ALCOHOL COUNSELOR 03/30/2015 4:29 AM CERTIFIED ALCOHOL COUNSELOR Анна Anand MD LAB - BLOOD BANK ORD ERABLES [facility] [address] * (ABNORMAL) CBC W AUTO DIFFERENTIAL (03/30/2015 4:22 AM CERTIFIED ALCOHOL COUNSELOR) WBC 10.4 4.4 - 10.7 x10^9/L 03/30/2015 4:42 AM [facility] WBC Corrected x10^9/L 03/30/2015 4:42 AM [facility] RBC 4.08 3.80 - 5.20 x10^12/L 03/30/2015 4:42 AM [facility] Hemoglobin 10.7(L) 12.0 - 15.6 gm/dL 03/30/2015 4:42 AM [facility] Hematocrit 33.1(L) 35.9 - 45.5 % 03/30/2015 4:42 AM [facility] MCV 81.1 80.7 - 98.3 fl 03/30/2015 4:42 AM [facility] MCH 26.2(L) 26.7 - 34.0 pg 03/30/2015 4:42 AM [facility] MCHC 32.3 30.8 - 35.9 gm/dL 03/30/2015 4:42 AM [facility] Platelet Count 164 153 - 416 x10^9/L 03/30/2015 4:42 AM [facility] RDW-CV 18.2(H) 12.1 - 14.9 % 03/30/2015 4:42 AM [facility] MPV 11.1 9.4 - 12.9 fl 03/30/2015 4:42 AM [facility] Neutrophils % 72.2 44.0 - 73.0 % 03/30/2015 4:42 AM [facility] Lymphocytes % 19.0(L) 20.0 - 43.0 % 03/30/2015 4:42 AM [facility] Monocytes % 7.5 5.0 - 13.0 % 03/30/2015 4:42 AM [facility] Eosinophils % 0.6 0.0 - 6.0 % 03/30/2015 4:42 AM [facility] Basophils % 0.2 0.0 - 2.0 % 03/30/2015 4:42 AM [facility] Immature Granulocytes 0.5 0 - 1 % 03/30/2015 4:42 AM [facility] Neutrophil Absolute 7.51(H) 2.01 - 7.14 x10^9/L 03/30/2015 4:42 AM [facility] Lymphocytes Absolute 1.98 1.07 - 3.94 x10^9/L 03/30/2015 4:42 AM [facility] Monocytes Absolute 0.78 0.26 - 1.07 x10^9/L 03/30/2015 4:42 AM [facility] Eosinophils Absolute 0.06 0 - 0.47 x10^9/L 03/30/2015 4:42 AM [facility] Basophils Absolute 0.02 0 - 0.08 x10^9/L 03/30/2015 4:42 AM [facility] Immature Granulocytes Absolute 0.05 0.00 - 0.06 x10^9/L 03/30/2015 4:42 AM [facility] Blood BLOOD SPECIMEN / Unknown 03/30/2015 4:22 AM CERTIFIED ALCOHOL COUNSELOR 03/30/2015 4:29 AM [facility] Анна Anand MD LAB - HEMATOLOGY ORD ERABLES Performing Organization Address City/State/[facility] Co de Phone Number [facility] [address] [place] [address] * (ABNORMAL) URINALYSIS ROUTINE W/REFLEX TO CULTURE (03/30/2015 3:24 AM [facility]) Color UA Yellow Straw, Yellow, Dark Yellow 03/30/2015 3:54 AM [facility] Clarity UA Clear 03/30/2015 3:54 AM [facility] Specific [place] UA 1.007 1.005 - 1.030 03/30/2015 3:54 AM [facility] pH UA 7.5 5.0 - 8.0 pH 03/30/2015 3:54 AM CERTIFIED ALCOHOL COUNSELOR [facility] Protein UA Negative Negative 03/30/2015 3:54 AM CERTIFIED ALCOHOL COUNSELOR [facility] Blood UA 2+(A) Negative 03/30/2015 3:54 AM CERTIFIED ALCOHOL COUNSELOR [facility] Leukocyte UA Negative Negative 03/30/2015 3:54 AM CERTIFIED ALCOHOL COUNSELOR [facility] Nitrite UA Negative Negative 03/30/2015 3:54 AM CERTIFIED ALCOHOL COUNSELOR [facility] Glucose UA Negative Negative 03/30/2015 3:54 AM CERTIFIED ALCOHOL COUNSELOR [facility] Ketone UA Negative Negative 03/30/2015 3:54 AM CERTIFIED ALCOHOL COUNSELOR [facility] Bilirubin UA Negative Negative 03/30/2015 3:54 AM CERTIFIED ALCOHOL COUNSELOR [facility] Urobilinogen UA 0.2 0.1 - 1.0 EU/dL 03/30/2015 3:54 AM [facility] WBC UA Auto 0-2 0-2, 2-5 # /hpf 03/30/2015 3:54 AM [facility] RBC UA Auto 0-2 0-2, 2-5 # /hpf 03/30/2015 3:54 AM [facility] Epithelial Cell UA Auto 0-2 0-2, 2-5 # /hpf 03/30/2015 3:54 AM [facility] Reflex Status Culture not indicated 03/30/2015 3:54 AM [facility] Urine URINE SPECIMEN OBTAINED BY CLEAN CATCH PROCEDURE / Unknown 03/30/2015 3:24 AM CERTIFIED ALCOHOL COUNSELOR 03/30/2015 3:38 AM CERTIFIED ALCOHOL COUNSELOR Анна Anand MD LAB - URINALYSIS ORD ERABLES Performing Organization Address City/State/[facility] Co de Phone Number [facility] [address] [place] [address] documented in this encounter Visit [...] at 1215 $ Given 03/30/2015 12:05 PM CERTIFIED ALCOHOL COUNSELOR 1,000 mg lactated ringers infusion ADS Med 1 dose, Starting on Sat03/30/15 at 0429, Until Sat03/30/15 at 0445, Nereyda Ruffin : cabinet override lactated ringers infusion at 125 mL/hr, Intravenous, CONTINUOUS, Starting on Sat03/30/15 at 0500, Until Sat03/30/15 at 1857, Start IV with 18 gauge angiocath. $ Bolus New Bag 03/30/2015 4:45 AM CERTIFIED ALCOHOL COUNSELOR 1,000 mL 125 mL/hr lactated ringers infusion at 125 mL/hr, Intravenous, CONTINUOUS, Starting on Sat03/30/15 at 0615, Until Sat03/30/15 at 1857 $ New Bag/Syringe 03/30/2015 11:54 AM CERTIFIED ALCOHOL COUNSELOR 125 mL/hr Rate Change 03/30/2015 6:52 AM CERTIFIED ALCOHOL COUNSELOR 125 mL/hr $ New Bag/Syringe 03/30/2015 6:36 AM CERTIFIED ALCOHOL COUNSELOR 125 mL /hr lactated ringers iv bolus 1,000 mL, Administer over 60 Minutes, BOLUS IV, 1 dose, On Sat03/30/15 at 0545 $ Bolus New Bag 03/30/2015 5:40 AM CERTIFIED ALCOHOL COUNSELOR 1,000 mL magnesium sulfate bolus 4 g 4 g, at 200-300 mL/hr, Administer over 20-30 Minutes, BOLUS IV, 1 dose, On Sat03/30/15 at 0530, Run over 20-30 minutes. Maximum rate 2g/10 minutes. Monitor BP, Pulse, and Respirations every 5 minutes, and assess for the following side effects: - INTERNAL AUDIT MANAGER Depression - Chest Pain - Palpitations - Flushing - Nausea - Vomiting - Headache - Blurred Vision - Respiratory Depression $ Given 03/30/2015 5:45 AM CERTIFIED ALCOHOL COUNSELOR 4 g 300 mL/hr magnesium sulfate infusion 2 g/hr (50 mL/hr), Intravenous, CONTINUOUS, Starting on Sat03/30/15 at 0600, Until Sat03/30/15 at 1857, 2 g/hr = 50 ml/hr $ New Bag/Syringe 03/30/2015 6:07 AM CERTIFIED ALCOHOL COUNSELOR 2 g/hr 50 mL/hr ondansetron (ZOFRAN) injection 4 mg 4 mg, Intravenous, EVERY 6 HOURS PRN, Nausea/Vomiting, Starting on Sat03/30/15 at 0437, Until Sat03/30/15 at 1857, Start with ondansetron. If ondansetron ineffective use metoclopramide. If metoclopramide ineffective use prochlorperazine. $ Given 03/30/2015 6:20 AM CERTIFIED ALCOHOL COUNSELOR 4 mg documented in this encounter Active and Recently Administered Medications Times are shown in CERTIFIED ALCOHOL COUNSELOR. Scheduled Medication Order 03/28/2015 03/29/2015 03/30/2015 acetaminophen [...] assess for the following side effects: - INTERNAL AUDIT MANAGER Depression - Chest Pain - Palpitations - [...] prochlorperazine. documented in this encounter Care Teams Device Sales Consultant Relationship Specialty Start Date End Date Steve Davis MD [address] [facility] [address] [place] [address] PCP - General Family Medicine 03/30/15 documented as of this encounter
--- OUTSIDE RECORDS SUMMARY | 2024-04-29 23:56 | XMS_ITS | Encounter Summary ---
Author Organization [facility] Address [address] [place] [address] [place] [address] Care Team Providers Care Manager Marketing Sales Name Role Phone Steve Davis MD Primary [...] she verbalized understanding. Lorena Torres RN, IBCLC IGN STUDENT ADVISER documented in this encounter Plan of Treatment Not on file documented as of this encounter Visit Diagnoses Not on filedocumented in this encounter Care Teams Manager Marketing Sales Relationship Specialty Start Date End Date Steve Davis MD [address] [facility] [address] [place] [address] PCP - General Family Medicine 03/30/15 documented as of this encounter
--- OUTSIDE RECORDS SUMMARY | 2024-04-29 23:56 | XMS_ITS | Encounter Summary ---
Author Organization [facility] Address [address] [place] [address] Care Team Providers Care Rug Designer Name Role Phone Steve Davis MD Primary Care Provider [phone] Reason for Visit * Reason Comments Nausea VOMITING DURING * Auth/Cert - Closed Specialty Diagnoses / Procedures Referred By Contac t Referred To Contact Referral ID Status Reason Start Date Expiration Date Visits Re quested Visits Authorized [id number] Closed 1 1 Encounter Details Date Type Department Care Team (Latest Contact Info) Description 03/08/2015 12:07 PM ROOF CEMENT AND PAINT MAKER HELPER - 03/09/2015 7:55 PM ROOF CEMENT AND PAINT MAKER HELPER Hospital Encounter [facility] 5E ANTEPARTUM/MOTHER BABY [address] [place] [address] Marciano Tamez MD [address] [place] [id number] Obstetrics Discharge Disposition: Home or Self Care [...] Comments Blood Pressure 101/53 03/09/2015 4:00 PM ROOF CEMENT AND PAINT MAKER HELPER Pulse 86 03/09/2015 4:00 PM ROOF CEMENT AND PAINT MAKER HELPER Temperature 37.1 ??C (98.8 ??F) 03/09/2015 4:00 PM CS T Respiratory Rate 20 03/09/2015 4:00 PM ROOF CEMENT AND PAINT MAKER HELPER Oxygen Saturation 99% 03/09/2015 4:00 PM ROOF CEMENT AND PAINT MAKER HELPER Inhaled Oxygen Concentration - - Weight 106.1 kg (234 lb) 03/08/2015 12:13 PM ROOF CEMENT AND PAINT MAKER HELPER Height 167.6 cm (5' 6 ) 03/08/2015 12:13 PM ROOF CEMENT AND PAINT MAKER HELPER Body Mass Index 37.77 03/08/2015 12:13 PM ROOF CEMENT AND PAINT MAKER HELPER documented in this encounter Functional Status Functional [...] hypokalemia Discharge Diagnosis: IUP at 32w0d Service: [facility] Antepartum Service History: Oanh Ortiz is a 29 y.o. at 31w6d whose care was with [facility]. The patientpresented with nausea, vomiting and hypokalemia [...] results for input(s): ABORH in the last 59356 hours. Recent Labs Component Name 03/30/15 0422 [...] Comments Your discharge diagnosis is Mild preeclampsia [[id number]] Contact your provider Call your Camp Dishwasher if you have questions or concerns, or [...] instructions Clara Saucedo MD 03/30/2015 5:47 AM CEMENT AND PAINT MAKER HELPER documented in this encounter Medications at [...] at the bedside. Pt. Awaiting lab results. CEMENT AND PAINT MAKER HELPER * Alla Chappell RN - 03/09/2015 2:01 PM CST 03/09/15 1345 Clinician Communication/Provider Notification Name of Clinician Notified: Jonnydeya Role: OB Resident Notification Method: Called/Phoned Notification Reason: Condition Update (IV painful & unable to restart. 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 Pt reports lowest weight of 205#, but has gained back 29# since her lowest weight, but remains4# under prepregnancy weight. Cameron weight gain for obese mother at term [...] of meals/snacks Nutrition Goal Timeframe: Throughout stay Mlei Shook MS, RD/LD 03/09/2015 11:11 AM Beeper [phone] CEMENT AND PAINT MAKER HELPER * Clara Saucedo MD - 03/09/2015 9:15 [...] Saucedo MD 03/09/2015 9:15 AM patient stable CEMENT AND PAINT MAKER HELPER Associated attestation - Marciano Tamez MD - 03/09/2015 11:06 AM ROOF CEMENT AND PAINT MAKER HELPER MFM Attending I have seen, evaluated and [...] - NT, no edema FHTs - pending Glen - pending I have the following to [...] this time; currently observed asleep in bed. CEMENT AND PAINT MAKER HELPER * Toyin Montoya RN - 03/09/2015 7:34 AM CST Problem: Fluid and Electrolyte Imbalance Goal: Fluid and electrolyte balance are achieved/maintained Outcome: Ongoing Received a total of 60 meq KCl replacement with IVFs (LR). Also received iron this morning. CEMENT AND PAINT MAKER HELPER * Rosalva Wei LPN - 03/08/2015 8:24 PM CST Problem: Fluid and Electrolyte Imbalance Goal: Fluid and electrolyte balance are achieved/maintained Outcome: Ongoing Pt. Tolerating po fluids and reg diet Intake and output maintained ivf's maintained 24 hour urine collection started 03/08/15 1722 CEMENT AND PAINT MAKER HELPER * Rosalva Wei LPN - 03/08/2015 7:00 PM CST Pt. Transferred [facility], per w/c. Pt. [...] any contractions. Will cont. To monitor pt. CEMENT AND PAINT MAKER HELPER * Elmira Prater RN - 03/08/2015 4:48 PM CST Problem: Fluid and Electrolyte Imbalance Goal: Fluid and electrolyte balance are achieved/maintained Outcome: Ongoing Oanh admitted for fluid / electrolyte imbalance potassium level 2.9. Orders ivfs lr with 40 meqpotasium at 125 mls/ hr CEMENT AND PAINT MAKER HELPER documented in this encounter H&P Notes [...] Carlos Anand MD 40 mEq at 03/07/15 0955 Current Outpatient Prescriptions on File Prior to [...] present Picking up maternal HR on monitoring Glen: Irritability Physical Exam: General: alert, cooperative, no [...] Yellow, Dark Yellow Clarity UA Clear Specific [place] UA 1.018 1.005-1.030 pH UA 7.0 5.0-8.0 [...] gestation, IVF care: is with Dr. Tamez. [place] office Patient's is complicated by: Patient Active [...] rate 130s, mod sisi, reactive, no decels Glen: irritable Physical Exam: General: alert, cooperative, no distress Lungs: clear to auscultation bilaterally Heart: regular rate and rhythm Abdomen: gravid, soft, nontender, normal bowel sounds Extremities: normal, non-tender bilaterally. Current Lab Review: Hospital Encounter on 03/08/15 URINALYSIS ROUTINE W/REFLEX TO CULTURE Result Value Ref Range Color UA Yellow Straw, Yellow, Dark Yellow Clarity UA Clear Specific [place] UA 1.018 1.005-1.030 pH UA 7.0 5.0-8.0 [...] Dr. Ele Ellis MD 03/08/2015 4:17 PM CEMENT AND PAINT MAKER HELPER Associated attestation - Stacia Marlow MD - 03/08/2015 11:41 PM ROOF CEMENT AND PAINT MAKER HELPER Teaching Attending Admission Note I have interviewed [...] LAB RESULTS ORDER 03/11/2015 4:5 6 PM ROOF CEMENT AND PAINT MAKER HELPER IMAGING/RADIOLOGY/XRAY RESULTS ORDER 03/11/2015 4:56 PM ROOF CEMENT AND PAINT MAKER HELPER PROTEIN CREATININE RATIO URINE TIMED PNL STAT 03/09/2015 5:33 PM ROOF CEMENT AND PAINT MAKER HELPER Supervision of high risk in second trimester PROTEIN URINE TIMED QUANTITATIVE Routine 03/09/2015 5:33 PM ROOF CEMENT AND PAINT MAKER HELPER Supervision of high risk in second trimester CREATININE CLEARANCE URINE TIMED + BLOOD Routine 03/09/2015 5:33 PM ROOF CEMENT AND PAINT MAKER HELPER Supervision of high risk in second trimester BASIC METABOLIC PANEL (CALCIUM TOTAL) AM Draw 03/09/2015 3:57 AM ROOF CEMENT AND PAINT MAKER HELPER PHOSPHORUS BLOOD Routine 03/09/2015 3:57 AM ROOF CEMENT AND PAINT MAKER HELPER MAGNESIUM BLOOD Routine 03/09/2015 3:57 AM ROOF CEMENT AND PAINT MAKER HELPER BASIC METABOLIC PANEL (CALCIUM TOTAL) Timed 03/09/2015 12:02 AM ROOF CEMENT AND PAINT MAKER HELPER BLOOD TYPE VERIFICATION Routine 03/08/2015 4:35 PM ROOF CEMENT AND PAINT MAKER HELPER TYPE + SCREEN PANEL STAT 03/08/2015 4 :17 PM ROOF CEMENT AND PAINT MAKER HELPER CBC W AUTO DIFFERENTIAL STAT 03/08/2015 4:17 PM ROOF CEMENT AND PAINT MAKER HELPER Supervision of high risk in second trimester EKG 12-LEAD STAT 03/08/2015 3:38 PM ROOF CEMENT AND PAINT MAKER HELPER Hypokalemia URINALYSIS REFLEX MICROSCOPIC REFLEX CULTURE STAT 03/08/2015 1:20 PM ROOF CEMENT AND PAINT MAKER HELPER Dichorionic diamniotic twin URIC ACID BLOOD Add on 03/08/2015 1:20 PM ROOF CEMENT AND PAINT MAKER HELPER Supervision of high risk in second trimester CULTURE URINE Routine 03/08/2015 1:20 PM ROOF CEMENT AND PAINT MAKER HELPER Dichorionic diamniotic twin COMPREHENSIVE METABOLIC PANEL STAT 03/08/2015 1:20 PM ROOF CEMENT AND PAINT MAKER HELPER Dichorionic diamniotic twin PROTEIN CREATININE RATIO URINE RANDOM PNL Add on 03/08/2015 1:20 PM ROOF CEMENT AND PAINT MAKER HELPER LDH BLOOD Add on 03/08/2015 1:20 PM ROOF CEMENT AND PAINT MAKER HELPER Supervision of high risk in second trimester documented in this encounter Results * LAB RESULTS ORDER (03/11/2015 4:56 PM ROOF CEMENT AND PAINT MAKER HELPER) Narrative 03/11/2015 4:56 PM ROOF CEMENT AND PAINT MAKER HELPER Ordered by an unspecified provider. Scanned Document LAB - THERAPEUTIC DR UG MONITORING ORDERABLES * IMAGING/RADIOLOGY/XRAY RESULTS ORDER (03/11/2015 4:56 PM ROOF CEMENT AND PAINT MAKER HELPER) Anatomical Region Laterality Modality Other Narrative 03/11/2015 4:56 PM ROOF CEMENT AND PAINT MAKER HELPER Ordered by an unspecified provider. Scanned Document IMAGING * PROTEIN CREATININE RATIO URINE TIMED PNL (03/09/2015 5:33 PM ROOF CEMENT AND PAINT MAKER HELPER) Volume 24 Hour Urine 1,900 mL 03/09/2015 6:07 PM [facility] Collection Time Hours 24 hrs 03/09/2015 6:07 PM [facility] Protein Urine 19.7 mg/dL 03/09/2015 6:07 PM [facility] Creatinine Urine 85 mg/dL 03/09/2015 6:07 PM [facility] Protein/Creatin ine Ratio Urine 0.23 03/09/2015 6:07 PM [facility] Urine TIMED URINE SPECIMEN / Unknown Collection / Unknown 03/09/2015 5:33 PM ROOF CEMENT AND PAINT MAKER HELPER 03/09/2015 5:52 PM ROOF CEMENT AND PAINT MAKER HELPER Oanh Julian MD LAB - URINE CHEMI STRY ORDERABLES [facility] [address] [place] [address] * (ABNORMAL) PROTEIN URINE TIMED QUANTITATIVE (03/09/2015 5:33 PM ROOF CEMENT AND PAINT MAKER HELPER) Volume 24 Hour Urine 1,900 mL 03/09/2015 6:07 PM [facility] Collection Time Hours 24 hrs 03/09/2015 6:07 PM [facility] Protein 24 Hour Urine 374(H) 42 - 225 mg/24hr 03/09/2015 6:07 PM [facility] Protein Urine 19.7 mg/dL 03/09/2015 6:07 PM [facility] Urine TIMED URINE SPECIMEN / Unknown Collection / Unknown 03/09/2015 5:33 PM ROOF CEMENT AND PAINT MAKER HELPER 03/09/2015 5:52 PM ROOF CEMENT AND PAINT MAKER HELPER Oanh Julian MD LAB - URINE CHEMI STRY ORDERABLES Performing Organization Address City/State/[facility] Co de Phone Number [facility] [address] [place] [address] * (ABNORMAL) CREATININE CLEARANCE URINE TIMED (03/09/2015 5:33 PM [facility]) Volume 24 Hour Urine 1,900 mL 03/09/2015 6:07 PM [facility] Collection Time Hours 24 hrs 03/09/2015 6:07 PM [facility] Height Inches 66 inches 03/09/2015 6:07 PM [facility] Weight in Pounds 234 pounds 03/09/2015 6:07 PM [facility] Surface Area 2.14 03/09/2015 6:07 PM [facility] Creatinine 0.41(L) 0.50 - 1.30 mg/dL 03/09/2015 6:07 PM [facility] Creatinine Urine 85 mg/dL 03/09/2015 6:07 PM [facility] Creatinine 24 Hour Urine 1,615 800 - 1,800 mg/24hr 03/09/2015 6:07 PM [facility] Creatinine Clearance 221(H) 87 - 107 mL/min/1.73 m2 03/09/2015 6:07 PM [facility] Urine TIMED URINE SPECIMEN / Unknown Collection / Unknown 03/09/2015 5:33 PM ROOF CEMENT AND PAINT MAKER HELPER 03/09/2015 5:52 PM ROOF CEMENT AND PAINT MAKER HELPER Oanh Julian MD LAB - URINE CHEMI STRY ORDERABLES Performing Organization Address [facility]/ZIP Co de Phone Number [facility] [address] [place] [address] * (ABNORMAL) PHOSPHORUS BLOOD (03/09/2015 3:57 AM ROOF CEMENT AND PAINT MAKER HELPER) Phosphorus 2.4(L) 2.5 - 4.9 mg/dL 03/09/2015 4:41 AM ROOF CEMENT AND PAINT MAKER HELPER [facility] Blood BLOOD SPECIMEN / Unknown Lab Venipuncture / Unknown 03/09/2015 3:57 AM ROOF CEMENT AND PAINT MAKER HELPER 03/09/2015 4:02 AM ROOF CEMENT AND PAINT MAKER HELPER Jose Antonio Saravia MD LAB - CHEMISTRY CJ SINHA Performing Organization Address [facility] Co de Phone Number [facility] [address] [place] [address] * MAGNESIUM BLOOD (03/09/2015 3:57 AM ROOF CEMENT AND PAINT MAKER HELPER) Magnesium 1.9 1.6 - 2.6 mg/dL 03/09/2015 4:41 AM ROOF CEMENT AND PAINT MAKER HELPER [facility] Blood BLOOD SPECIMEN / Unknown Lab Venipuncture / Unknown 03/09/2015 3:57 AM ROOF CEMENT AND PAINT MAKER HELPER 03/09/2015 4:02 AM ROOF CEMENT AND PAINT MAKER HELPER Jose Antonio Saravia MD LAB - CHEMISTRY ORDDeya SINHA Performing Organization Address [facility]/ZIP Co de Phone Number [facility] [address] [place] [address] * (ABNORMAL) BASIC METABOLIC PANEL (CALCIUM TOTAL) (03/09/2015 3:57 AM ROOF CEMENT AND PAINT MAKER HELPER) Glucose 88 74 - 106 mg/dL 03/09/2015 4:41 AM [facility] Sodium 141 136 - 145 mmol/L 03/09/2015 4:41 AM [facility] Potassium 3.2(L) 3.5 - 5.1 mmol/L 03/09/2015 4:41 AM [facility] Chloride 110(H) 98 - 107 mmol/L 03/09/2015 4:41 AM [facility] CO2 22 22 - 31 mmol/L 03/09/2015 4:41 AM [facility] Calcium 8.0(L) 8.5 - 10.1 mg/dL 03/09/2015 4:41 AM [facility] Anion Gap 9 5 - 20 mmol/L 03/09/2015 4:41 AM [facility] BUN 2(L) 7 - 21 mg/dL 03/09/2015 4:41 AM [facility] Creatinine 0.41(L) 0.50 - 1.30 mg/dL 03/09/2015 4:41 AM [facility] eGFR by MDRD >60 >60 mL/min/1.7 3m2 03/09/2015 4:41 AM [facility] eGFR by MDRD >60 >60 mL/min/1.7 3m2 03/09/2015 4:41 AM [facility] Blood BLOOD SPECIMEN / Unknown Lab Venipuncture / Unknown 03/09/2015 3:57 AM ROOF CEMENT AND PAINT MAKER HELPER 03/09/2015 4:02 AM [facility] Jose Antonio Saravia MD LAB - CHEMISTRY CJ [facility] Organization Address City/State/ZIP Co de Phone Number [facility] [address] [place], [place] [phone] * (ABNORMAL) BASIC METABOLIC PANEL (CALCIUM TOTAL) (03/09/2015 12:02 AM [facility]) [facility] Glucose 87 74 - 106 mg/dL 03/09/2015 12:31 AM [facility] Sodium 140 136 - 145 mmol/L 03/09/2015 12:31 AM [facility] Potassium 3.2(L) 3.5 - 5.1 mmol/L 03/09/2015 12:31 AM [facility] Chloride 109(H) 98 - 107 mmol/L 03/09/2015 12:31 AM [facility] CO2 25 22 - 31 mmol/L 03/09/2015 12:31 AM [facility] Calcium 8.0(L) 8.5 - 10.1 mg/dL 03/09/2015 12:31 AM [facility] Anion Gap 6 5 - 20 mmol/L 03/09/2015 12:31 AM [facility] BUN 2(L) 7 - 21 mg/dL 03/09/2015 12:31 AM ROOF CEMENT AND PAINT MAKER HELPER [facility] Creatinine 0.45(L) 0.50 - 1.30 mg/dL 03/09/2015 12:31 AM ROOF CEMENT AND PAINT MAKER HELPER [facility] eGFR by MDRD >60 >60 mL/min/1.7 3m2 03/09/2015 12:31 AM ROOF CEMENT AND PAINT MAKER HELPER [facility] eGFR by MDRD >60 >60 mL/min/1.7 3m2 03/09/2015 12:31 AM ROOF CEMENT AND PAINT MAKER HELPER [facility] Blood BLOOD SPECIMEN / Unknown Lab Venipuncture / Unknown 03/09/2015 12:02 AM ROOF CEMENT AND PAINT MAKER HELPER 03/09/2015 12:10 AM ROOF CEMENT AND PAINT MAKER HELPER Yessi Ashley MD LAB - CHEMISTRY CJ SINHA [facility] [address] [place] [address] * BLOOD TYPE VERIFICATION (03/08/2015 4:35 PM ROOF CEMENT AND PAINT MAKER HELPER) ABO A 03/08/2015 5:48 PM ROOF CEMENT AND PAINT MAKER HELPER [facility] Rh Type Positive 03/08/2015 5:48 PM ROOF CEMENT AND PAINT MAKER HELPER [facility] Miscellaneous samples (specimen) BLOOD SPECIMEN / Unknown Venipuncture / Unknown 03/08/2015 4:35 PM ROOF CEMENT AND PAINT MAKER HELPER 03/08/2015 5:29 PM ROOF CEMENT AND PAINT MAKER HELPER Marciano Tamez MD LAB - BLOOD BANK MYLES GUERRERO Performing Organization Address City/[facility]/ZIP Co de Phone Number [facility] [address] * TYPE & SCREEN (03/08/2015 4:17 PM ROOF CEMENT AND PAINT MAKER HELPER) ABO A 03/08/2015 5:46 PM ROOF CEMENT AND PAINT MAKER HELPER [facility] Rh Type Positive 03/08/2015 5:46 PM ROOF CEMENT AND PAINT MAKER HELPER [facility] Comment:History check perfor med. Retype required. Antibody Screen Negative 03/08/2015 5:46 PM ROOF CEMENT AND PAINT MAKER HELPER [facility] Miscellaneous samples (specimen) BLOOD SPECIMEN / Unknown Venipuncture / Unknown 03/08/2015 4:17 PM ROOF CEMENT AND PAINT MAKER HELPER 03/08/2015 4:46 PM ROOF CEMENT AND PAINT MAKER HELPER Oanh Julian MD LAB - BLOOD BANK ORDERABLES [facility] [address] * (ABNORMAL) CBC W AUTO DIFFERENTIAL (03/08/2015 4:17 PM ROOF CEMENT AND PAINT MAKER HELPER) WBC 9.7 4.4 - 10.7 x10^9/L 03/08/2015 4:59 PM [facility] WBC Corrected x10^9/L 03/08/2015 4:59 PM [facility] RBC 3.59(L) 3.80 - 5.20 x10^12/L 03/08/2015 4:59 PM [facility] Hemoglobin 9.1(L) 12.0 - 15.6 gm/dL 03/08/2015 4:59 PM [facility] Hematocrit 28.3(L) 35.9 - 45.5 % 03/08/2015 4:59 PM [facility] MCV 78.8(L) 80.7 - 98.3 fl 03/08/2015 4:59 PM [facility] MCH 25.3(L) 26.7 - 34.0 pg 03/08/2015 4:59 PM [facility] MCHC 32.2 30.8 - 35.9 gm/dL 03/08/2015 4:59 PM [facility] Platelet Count 183 153 - 416 x10^9/L 03/08/2015 4:59 PM [facility] RDW-CV 13.3 12.1 - 14.9 % 03/08/2015 4:59 PM [facility] MPV 11.4 9.4 - 12.9 fl 03/08/2015 4:59 PM [facility] Neutrophils % 78.1(H) 44.0 - 73.0 % 03/08/2015 4:59 PM [facility] Lymphocytes % 14.1(L) 20.0 - 43.0 % 03/08/2015 4:59 PM [facility] Monocytes % 6.5 5.0 - 13.0 % 03/08/2015 4:59 PM [facility] Eosinophils % 0.5 0.0 - 6.0 % 03/08/2015 4:59 PM ROOF CEMENT AND PAINT MAKER HELPER [facility] Basophils % 0.2 0.0 - 2.0 % 03/08/2015 4:59 PM [facility] Immature Granulocytes 0.6 0 - 1 % 03/08/2015 4:59 PM [facility] Neutrophil Absolute 7.53(H) 2.01 - 7.14 x10^9/L 03/08/2015 4:59 PM [facility] Lymphocytes Absolute 1.36 1.07 - 3.94 x10^9/L 03/08/2015 4:59 PM [facility] Monocytes Absolute 0.63 0.26 - 1.07 x10^9/L 03/08/2015 4:59 PM [facility] Eosinophils Absolute 0.05 0 - 0.47 x10^9/L 03/08/2015 4:59 PM [facility] Basophils Absolute 0.02 0 - 0.08 x10^9/L 03/08/2015 4:59 PM [facility] Immature Granulocytes Absolute 0.06 0.00 - 0.06 x10^9/L 03/08/2015 4:59 PM [facility] Blood BLOOD SPECIMEN / Unknown Venipuncture / Unknown 03/08/2015 4:17 PM ROOF CEMENT AND PAINT MAKER HELPER 03/08/2015 4:46 PM [facility] Oanh Julian MD LAB - HEMATOLOGY ORDERABLES Performing Organization Address [facility]/State/ZIP Co de Phone Number [facility] [address] [place] [address] * EKG 12-LEAD (03/08/2015 3:38 PM ROOF CEMENT AND PAINT MAKER HELPER) Ventricular Rate 85 BPM [facility] Atrial Rate 85 BPM [facility] P-R Interval 194 ms [facility] QRS Duration ms 88 ms [facility] Q-T Interval ms 366 ms [facility] QTC Calculation (Bezet) 435 ms [facility] Calculated P [place] 2 degrees [facility] Calculated R [place] 30 degrees [facility] Calculated T [place] 6 degrees [facility] Interpretation EKG NORMAL SINUS RHYTHM NORMAL ECG NO PREVIOUS ECGS AVAILABLE Confirmed by MD Kavitha, Aly ([id number]) on 03/09/2015 8:55:45 AM [facility] MUSE 03/08/2015 3:38 PM ROO[employer] CEMENT AND PAINT MAKER HELPER 03/09/2015 8:55 AM ROOF CEMENT AND PAINT MAKER HELPER Oanh Julian MD ECG ORDERABLES Performing Organization Address [facility] Co de Phone Number [facility] * PROTEIN CREATININE RATIO URINE RANDOM PNL (03/08/2015 1:20 PM ROOF CEMENT AND PAINT MAKER HELPER) Protein Urine 40.6 mg/dL 03/08/2015 7:29 PM ROOF CEMENT AND PAINT MAKER HELPER [facility] Creatinine Urine 210 mg/dL 03/08/2015 7:29 PM ROOF CEMENT AND PAINT MAKER HELPER [facility] Protein/Creatin ine Ratio Urine 0.19 03/08/2015 7:29 PM ROOF CEMENT AND PAINT MAKER HELPER [facility] Urine URINE SPECIMEN OBTAINED BY CLEAN CATCH PROCEDURE / Unknown Collection / Unknown 03/08/2015 1:20 PM ROOF CEMENT AND PAINT MAKER HELPER 03/08/2015 7:14 PM ROOF CEMENT AND PAINT MAKER HELPER Elmira Ellis MD LAB - URINE CHEMI STRY ORDERABLES Performing Organization Address [facility] de Phone Number [facility] [address] [place], [place] [id number] * URIC ACID BLOOD (03/08/2015 1:20 PM ROOF CEMENT AND PAINT MAKER HELPER) Uric Acid 3.5 3.0 - 8.5 mg/dL 03/08/2015 4:34 PM ROOF CEMENT AND PAINT MAKER HELPER [facility] Blood BLOOD SPECIMEN / Unknown Venipuncture / Unknown 03/08/2015 1:20 PM ROOF CEMENT AND PAINT MAKER HELPER 03/08/2015 4:23 PM ROOF CEMENT AND PAINT MAKER HELPER Oanh Julian MD LAB - CHEMISTRY O RDERABLES Performing Organization Address [facility] de Phone Number [facility] [address] [place] [address] * LDH BLOOD (03/08/2015 1:20 PM ROOF CEMENT AND PAINT MAKER HELPER) LDH 198 100 - 200 U/L 03/08/2015 4:40 PM ROOF CEMENT AND PAINT MAKER HELPER [facility] Blood BLOOD SPECIMEN / Unknown Venipuncture / Unknown 03/08/2015 1:20 PM ROOF CEMENT AND PAINT MAKER HELPER 03/08/2015 4:23 PM ROOF CEMENT AND PAINT MAKER HELPER Oanh Julian MD LAB - CHEMISTRY O RDERABLES [facility] [address] [place] [address] * CULTURE URINE (03/08/2015 1:20 PM ROOF CEMENT AND PAINT MAKER HELPER) Culture <10,000 CFU/mL normal urogenital augustine SATURNINO 03/10/2015 8:13 AM [facility] Urine URINE SPECIMEN OBTAINED BY CLEAN CATCH PROCEDURE / Unknown Collection / Unknown 03/08/2015 1:20 PM [employer] 03/08/2015 1:50 PM [employer] Oanh Julian MD LAB - MICROBIOLOG Y ORDERABLES Performing Organization Address City/[facility]/ZIP Co de Phone Number [facility] [address] [phone] * (ABNORMAL) COMPREHENSIVE METABOLIC PANEL (03/08/2015 1:20 PM [employer]) Glucose 86 74 - 106 mg/dL 03/08/2015 2:26 PM [facility] Sodium 139 136 - 145 mmol/L 03/08/2015 2:26 PM [facility] Potassium 2.9(L) 3.5 - 5.1 mmol/L 03/08/2015 2:26 PM [facility] Chloride 107 98 - 107 mmol/L 03/08/2015 2:26 PM [facility] CO2 24 22 - 31 mmol/L 03/08/2015 2:26 PM [facility] Calcium 8.3(L) 8.5 - 10.1 mg/dL 03/08/2015 2:26 PM [facility] Anion Gap 8 5 - 20 mmol/L 03/08/2015 2:26 PM [facility] BUN 2(L) 7 - 21 mg/dL 03/08/2015 2:26 PM [facility] Creatinine 0.58 0.50 - 1.30 mg/dL 03/08/2015 2:26 PM [facility] Alkaline Phosphatase 132(H) 38 - 126 U/L 03/08/2015 2:26 PM [facility] ALT 21 12 - 78 U/L 03/08/2015 2:26 PM [facility] AST 30 5 - 40 U/L 03/08/2015 2:26 PM [facility] Protein Total 5.8(L) 6.4 - 8.2 gm/dL 03/08/2015 2:26 PM [facility] Albumin 2.2(L) 3.4 - 5.0 gm/dL 03/08/2015 2:26 PM [facility] Bilirubin Total 0.4 0.2 - 1.0 mg/dL 03/08/2015 2:26 PM [facility] eGFR by MDRD >60 >60 mL/min/1.7 3m2 03/08/2015 2:26 PM [facility] eGFR by MDRD >60 >60 mL/min/1.7 3m2 03/08/2015 2:26 PM [facility] Blood BLOOD SPECIMEN / Unknown Venipuncture / Unknown 03/08/2015 1:20 PM [employer] HEL[employer] 03/08/2015 1:50 PM [facility] Oanh Julian MD LAB - CHEMISTRY O RDERABLES [facility] [address] [id number] * (ABNORMAL) URINALYSIS ROUTINE W/REFLEX TO CULTURE (03/08/2015 1:20 PM [employer] PAINT MAK[employer] HELPER) Color UA Yellow Straw, Yellow, Dark Yellow 03/08/2015 2:05 PM [facility] Clarity UA Clear 03/08/2015 2:05 PM [facility] Specific [place] UA 1.018 1.005 - 1.030 03/08/2015 2:05 PM [facility] pH UA 7.0 5.0 - 8.0 pH 03/08/2015 2:05 PM [facility] Protein UA Trace(A) Negative 03/08/2015 2:05 PM [facility] Blood UA Negative Negative 03/08/2015 2:05 PM [facility] Leukocyte UA 1+(A) Negative 03/08/2015 2:05 PM [facility] Nitrite UA Negative Negative 03/08/2015 2:05 PM [facility] Glucose UA Negative Negative 03/08/2015 2:05 PM [employer] [facility] Ketone UA 2+(A) Negative 03/08/2015 2:05 PM [employer] [facility] Bilirubin UA Negative Negative 03/08/2015 2:05 PM [employer] [facility] Urobilinogen UA 1.0 0.1 - 1.0 EU/dL 03/08/2015 2:05 PM [employer] [facility] WBC UA Auto 2-5 0-2, 2-5 # /hpf 03/08/2015 2:05 PM [employer] [facility] RBC UA Auto 2-5 0-2, 2-5 # /hpf 03/08/2015 2:05 PM [employer] [facility] Epithelial Cell UA Auto 2-5 0-2, 2-5 # /hpf 03/08/2015 2:05 PM [employer] [facility] Bacteria UA Auto 1+(A) None seen 03/08/2015 2:05 PM [employer] [facility] Hyaline Casts UA Auto 2-5(A) 0 - 2 #/lpf 03/08/2015 2:05 PM [facility] Reflex Status Culture to follow 03/08/2015 2:05 PM [facility] Urine URINE SPECIMEN OBTAINED BY CLEAN CATCH PROCEDURE / Unknown Collection / Unknown 03/08/2015 1:20 PM [employer] 03/08/2015 1:50 PM [employer] Oanh Julian MD LAB - URINALYSIS ORDERABLES Performing Organization Address [facility]/State/[facility] Co de Phone Number [facility] [address] [place] [address] documented in this encounter Visit Diagnoses Diagnosis [...] Until Discontinued $ Given 03/09/2015 6:43 AM [employer] HELPER 10 mL $ Given 03/08/2015 10:00 PM [employer] 10 mL acetaminophen (TYLENOL) tablet 1,000 mg 1,000 mg, Oral, ONCE, 1 dose, On Sat03/09/15 at 0315 $ Given 03/09/2015 3:10 AM [employer] HELPER 1,000 mg docusate sodium (COLACE) capsule 100 mg 100 mg, Oral, 2 TIMES DAILY, First dose on Sat03/08/15 at 2100, Until Discontinued $ Given 03/09/2015 9:06 AM [employer] HELPER 100 mg $ Given 03/08/2015 8:33 PM [employer] HEL[employer] 100 mg doxylamine (UNISOM) tablet 12.5 mg 12.5 mg, Oral, DAILY AFTER BREAKFAST, First dose on Sat03/09/15 at 0900, Until Discontinued $ Given 03/09/2015 9:06 AM [employer] PAINT MAKER HELPER 12.5 mg doxylamine (UNISOM) tablet 25 mg 25 mg, Oral, DAILY AFTER DINNER, First dose (after last modification) on Sat03/08/15 at 2000, Until Discontinued $ Given 03/09/2015 6:44 PM [employer] HELPER 25 mg $ Given 03/08/2015 9:30 PM [employer] HEL[employer] 25 mg iron polysaccharides (NIFEREX 150) capsule 150 mg 150 mg, Oral, DAILY, First dose on Sat03/08/15 at 1630, Until Discontinued $ Given 03/09/2015 9:06 AM [employer]INT MAKER HELPER 150 mg $ Given 03/08/2015 7:04 PM [employer] 150 mg iron sucrose (VENOFER) 300 mg in 0.9% NaCl 100 mL infusion 300 mg, at 66.67 mL/hr, Intravenous, ONCE, 1 dose, On Sat03/09/15 at 0200, May administer up to 200 mg of undiluted solution IVP slowly over 5 minutes. Doses greater than 200 mg must be diluted to an appropriate volume and administered as an infusion. $ Given 03/09/2015 5:11 AM [employer]KER HELPER 300 mg 66.67 mL/hr lactated ringers 1,000 mL with potassium chloride 40 mEq infusion at 125 mL/hr, Intravenous, 2 TIMES DAILY, 1 dose, First dose (after last modification) on Sat03/08/15 at 1800 $ Given 03/08/2015 5:52 PM [employer] HELPER 125 mL/hr lactated ringers infusion at 125 mL/hr, Intravenous, CONTINUOUS, Starting on Sat03/08/15 at 2045, Until Sat03/09/15 at 2105 $ New Bag/Syringe 03/09/2015 8:27 AM [employer] HELPER 125 mL/hr Rate Change 03/09/2015 12:39 AM [employer] 125 mL/hr $ New Bag/Syringe 03/08/2015 8:35 PM [employer] 75 mL/ hr metoclopramide (REGLAN) injection 10 mg 10 mg, Intravenous, EVERY 6 HOURS PRN, Nausea/Vomiting, Starting on Sat03/08/15 at 1601, Until Sat03/09/15 at 1341 $ Given 03/08/2015 4:51 PM [employer] 10 mg ondansetron (disintegrating) (ZOFRAN ODT) tablet 4 mg 4 mg, Sublingual, EVERY 4 HOURS PRN, Nausea/Vomiting, Starting on Sat03/09/15 at 1340, Until Sat03/09/15 at 2105 $ Given 03/09/2015 1:54 PM [employer] HEL[employer] 4 mg potassium chloride (KLOR-CON M) tablet 10 mEq 10 mEq, Oral, 3 TIMES DAILY WITH MEALS, First dose on Sat03/09/15 at 1430, Until Discontinued, May cut in half but do not crush or chew. $ Given 03/09/2015 6:44 PM [employer] HEL[employer] 10 mEq $ Given 03/09/2015 2:48 PM [employer] HELPER 10 mEq potassium chloride 20 meq/ 100 ml infusion 20 mEq, Administer over 2 Hours, Intravenous, ONCE, 1 dose, On Sat03/09/15 at 0130 $ Given 03/09/2015 2:54 AM [employer] HELPER 20 mEq potassium chloride infusion 40 mEq 40 mEq, at 50 mL/hr, Administer over 4 Hours, Intravenous, ONCE, 1 dose, On Sat03/08/15 at 2030 $ Given 03/08/2015 8:34 PM [employer] HEL[employer] 40 mEq 5 0 mL/hr potassium chloride infusion 40 mEq 40 mEq, at 50 mL/hr, Administer over 4 Hours, Intravenous, ONCE, 1 dose, On Sat03/09/15 at 1215 $ Given 03/09/2015 12:03 PM [employer] HEL[employer] 40 mEq 50 mL/hr pyridoxine (VITAMIN B-6) tablet 50 mg 50 mg, Oral, AT BEDTIME, First dose on Sat03/08/15 at 2100, Until Discontinued $ Given 03/08/2015 8:34 PM [employer] 50 mg documented in this encounter Active and Recently Administered Medications Times are shown in [employer]. Scheduled Medication Order 03/07/2015 03/08/2015 03/09/2015 0.9% [...] RN) documented in this encounter Care Teams Rug Designer Relationship Specialty Start Date End Date Steve Davis MD [address] [place] [id number] PCP - General Family Medicine 11/14/14 03/29/15 documented as of this encounter
--- OUTSIDE RECORDS SUMMARY | 2024-04-29 23:58 | XMS_ITS | Encounter Summary ---
Author Organization [facility] Address [address] [place] [address]. [place], [place] [address] [place] [id number] Care Team Providers Care Insulation Technician Name Role Phone Unavailable Primary Care Provider Unavailabl e Encounter Details Date Type Department Care Team (Late st Contact Info) Description 02/12/2012 Abstract [facility] Diagnostic Imaging [address] [place] [address] Clara Crow, [facility] [address] [place] [address] Social History Tobacco Use Types Packs/Day Years [...]
--- OUTSIDE RECORDS SUMMARY | 2024-04-29 23:58 | XMS_ITS | Encounter Summary ---
Author Organization [facility] Address [address] [place] [address]. [place] [address] Care Team Providers Care Decal Cutter Name Role Phone Unavailable Primary Care Provider Unavailabl e Encounter Details Date Type Department Care Team (Late st Contact Info) Description 02/07/2012 Abstract [facility] Conversion Md, Generic Conversion, Social History Tobacco [...]
--- OUTSIDE RECORDS SUMMARY | 2024-04-29 23:58 | XMS_ITS | Encounter Summary ---
Author Organization [facility] Address [address] [place] [address]. [place] [id number] [place] [address] Care Team Providers Care Turpentiner Name Role Phone Unavailable Primary Care Provider Unavailabl e Encounter Details Date Type Department Care Team (Late st Contact Info) Description 02/02/2003 Abstract [facility] CONVERSION [address] [place] [address] , Generic Conversion, Social History Tobacco Use [...]
--- OUTSIDE RECORDS SUMMARY | 2024-04-29 23:58 | XMS_ITS | Encounter Summary ---
Author Organization [facility] Address [address] [place] [address]. [place] [address] Care Team Providers Care Quality Control Clerk Name Role Phone Unavailable Primary Care Provider Unavailabl e Encounter Details Date Type Department Care Team (Late st Contact Info) Description 02/11/2012 Abstract [facility] Conversion Md, Generic Conversion, Social History Tobacco [...]
--- OUTSIDE RECORDS SUMMARY | 2024-04-29 23:58 | XMS_ITS | Encounter Summary ---
Author Organization [facility] Address [address] [place] [address]. [place] [address] Care Team Providers Care Bobbin Doffer Name Role Phone Unavailable Primary Care Provider Unavailabl e Encounter Details Date Type Department Care Team (Late st Contact Info) Description 02/05/2012 Abstract [facility] Conversion Md, Generic Conversion, Social [...]
--- OUTSIDE RECORDS SUMMARY | 2024-04-29 23:58 | XMS_ITS | Encounter Summary ---
Author Organization [facility] Address [address] [place] [address]. [place] [address] Care Team Providers Care Soda Drier Feeder Name Role Phone Unavailable Primary Care Provider Unavailabl e Encounter Details Date Type Department Care Team (Late st Contact Info) Description 02/15/2012 Abstract [facility] Conversion Md, Generic Conversion, Social [...]
--- OUTSIDE RECORDS SUMMARY | 2024-04-29 23:58 | XMS_ITS | Encounter Summary ---
Author Organization [facility] Address [facility] [place], [place] [address] [place] [address] Care Team Providers Care Electric Meter Technician Name Role Phone Unavailable Primary Care Provider Unavailabl e Encounter Details Date Type Department Care Team (Late st Contact Info) Description 02/12/2012 Abstract [facility] Conversion Clara Crow, CN [address] [place] [address] Social History Tobacco Use Types Packs/Day Years [...]
--- OUTSIDE RECORDS SUMMARY | 2024-04-29 23:58 | XMS_ITS | Clinical Summary ---
Author Organization [facility] Address [address] [place] [address]. [place] [id number] [place] [address] Care Team Providers Care Manager Strategic Marketing Name Role Phone Unavailable Primary Care Provider [...] this topic Meningococcal Vaccine Aged Out No mayte kamron eligible based [...]
== END 2024-04-23 01:07 | disposition home or self-care (01) ==
PROVIDERS: Emergency Medicine; Emergency Provider Emergency Medicine; PCP Family Medicine
DX: K56.0 Paralytic ileus (principal); Z87.891 Personal history of nicotine dependence; K82.8 Other specified diseases of gallbladder
CPT/HCPCS: 36415; 74177; 80053; 81003; 81025; 83690; 85025; 96374; 96375; 96376; 99284; J0780; J2270; Q9967

== ENCOUNTER 2024-07-23 01:22 | Day surgery (SDC) | payer OTHER, SELFPAY ==
[2024-07-14 09:38] VITALS: BMI 33.3
--- OUTSIDE RECORDS SUMMARY | 2024-07-23 01:24 | XMS_ITS | Clinical Summary ---
Author Organization [facility] Address [address] [place] [address] [place] [address] Care Team Providers Care Clean Out Driller Name Role Phone Steve Davis MD Primary Care Provider [phone] Source Comments [facility],non-owned Affiliates and Associated Physician Practices is amultiple site organization consisting of ambulatory clinics and hospital sitesin [place], [place], [place] and [place]. This disclosure is being madepursuant to the Care Everywhere program and may not contain all information available regarding this patient. Last updated 18.[facility] Allergies No known active allergies Medications * [...] Obesity 11/14/2014 [facility] 11/14/2014 Overview (11/14/2014): Dating: IVF History of ectopic 11/14/2014 Overview (11/14/2014): Salpingectomy in 2009 Hyperemesis gravidarum with electrolyte imbalanc e Hypokalemia Maternal iron deficiency ane ryan affecting , antepartum Hypertension Status post section Immunizations Name Administration Dates Next Due INFLUENZA VACCINE 12/28/2014 TDAP (7yrs+) 12/28/2014 Family History Medical [...] Comments Blood Pressure 112/70 05/05/2015 1:44 PM PRACTICAL NURSE CLINICAL COORDINATOR Pulse 76 05/05/2015 1:44 PM PRACTICAL NURSE CLINICAL COORDINATOR Temperature 36.7 C (98.1 F) 04/03/2015 8:00 AM PRACTICAL NURSE CLINICAL COORDINATOR Respiratory Rate 16 05/05/2015 1:44 PM PRACTICAL NURSE CLINICAL COORDINATOR Oxygen Saturation 96% 03/31/2015 3:07 AM PRACTICAL NURSE CLINICAL COORDINATOR Inhaled Oxygen Concentration - - Weight 91.6 kg (202 lb) 05/05/2015 1:44 PM PRACTICAL NURSE CLINICAL COORDINATOR Height 167.6 cm (5' 6 ) 05/05/2015 1:44 PM PRACTICAL NURSE CLINICAL COORDINATOR Body Mass Index 32.6 05/05/2015 1:44 PM PRACTICAL NURSE CLINICAL COORDINATOR Plan of Treatment Health Maintenance Due Date Last Done Comments PAP SMEAR 1986 HEPATITIS C SCREENING 03/31/2004 HEPATITIS B VACCINE (1 of 3 - 19+ 3-dose series) 2005 COVID-19 VACCINE (2023-2 5 season) 2023 INFLUENZA VACCINE (#1) 2023 5, 12/28/2014 DEPRESSION SCREENING 04/29/2024 DTAP/TDAP/TD VACCINES (2 - T d or Tdap) 12/28/2024 12/28/2014 ZOSTER VACCINE (1 of 2) 2036 HIV SCREENING Completed 04/29/1998 HIB VACCINE Aged Out No longer eligi ble based on patient's age to complete this topic HPV VACCINE Aged Out No longer eligi ble based on patient's age to complete this topic MENINGOCOCCAL (Group B) VACCINE SHARED DECISION-MAKING Aged Out No longer eligible based on patient's age to complete this topic MENINGOCOCCAL GROUPS A/C/Y/W VACCINE Aged Out No longer eligible b ased on patient's age to complete this topic PNEUMOCOCCAL VACCINE Aged Out No long er eligible based on patient's age to complete this topic Procedures Procedure Name Priority Date/Time Associated Diagnosis Comments HIV-1 HIV-2 ANTIBODIES W RFLX REFLEXED Routine 04/29/1998 12:00 AM PRACTICAL NURSE CLINICAL COORDINATOR from Last 3 Months or Most Recently Relevant to Health Maintenance Results * HIV-1 HIV-2 ANTIBODIES W RFLX REFLEXED (04/29/1998 12:00 AM PRACTICAL NURSE CLINICAL COORDINATOR) HIV 1/2 EIA Antibody neg [facility] 04/29/1998 Narrative [facility] - 04/29/1998 12:00 AM PRACTICAL NURSE CLINICAL COORDINATOR This external order was created through the Results Console. Historical Provider LAB - CHEMISTRY O RDERABLES [facility] from Last 3 Months or Most Recently [...] 4:02 PM 03/09/2015 9:06 PM Care Teams Clean Out Driller Relationship Specialty Start Date End Date Steve Davis MD [address] [place] [address] PCP - General Family Medicine 03/30/15
--- OUTSIDE RECORDS SUMMARY | 2024-07-23 01:24 | XMS_ITS | Data Portability ---
Author Organization [facility] [place] Address [address] [place] [address] Assessment Encounter Date Assessment Date Assessment LastModified [...] B core Ab) igm, serum 2023 024 [facility] (Lab), [address], [place], [address], 4 12:38:35 HBsAg (hepatitis B surface Ag), serum 2023 024 [facility] (Lab), [address], [place], [address], 4 12:38:33 hepatitis C virus Ab, serum 2023 024 [facility] (Lab), [address] [place], [address], 4 12:38:34 HIV 1+2 AB + HIV 1 p24 Ag, qualitative immunoassay , serum 2023 024 [facility] (Lab), [address], [place], [address], 4 12:38:33 RPR (rapid plasma reagin), serum 2023 024 STACY [facility] (Lab), [address], [place], [address], 12:38:34 Referral None recorded. Procedures None recorded. [...] used inter ware eably . Not Available [facility] (Lab) [address], [place], [address], 12/12/2023 12:38:32 12/11/19 24 12/11/2023 HIV 1/2 ANTIG EN/AN TIBOD Y, REFLE X CONFI RMATI ON HIV antigen/anti body Nonrea ctive nonrea ctive HIV-1 antig en and HIV-1 /HIV- 2 antib odies were not detec mele. No labor atory evide nce of HIV infec tion. Not Available [facility] (Lab) [address], [place], [address], 12/12/2023 12:38:33 12/11/19 24 12/11/2023 HEPAT ITIS C ANTIB ZION SCREE N, REFLE X TO CONFI RMATI ON hepatitis C antibody Non-re active non-re active Antib odies to HCV Not Detec mele, does not exclu de the possi bilit y of expos ure to HCV. Not Available [facility] (Lab) [address], [place], [address], 12/12/2023 12:38:34 12/11/19 24 12/11/2023 RPR SCREE N, REFLE X TITER /CONF IRMAT ION RPR screen Nonrea ctive nonrea ctive Not Available [facility] (Lab) [address], [place], [address], 12/12/2023 12:38:34 12/11/19 24 12/11/2023 HEPAT ITIS B CORE, IGM hepatitis B core IgM antibody Non-re active non-re active IgM anti- HBc not detec mele. Does not exclu de the possi bilit y of expos ure to or infec tion with HBV. Not Available [facility] (Lab) [address], [place], [address], 12/12/2023 12:38:34 Result Notes None recorded. Problems Name Problem SNOMED Code Status Onset Date Resolution Date Notes Provider Name and Address Organization Details Recorded Time Mastitis Active 2015 Mastitis; Recorded Elsewhere : No Locati on: [facility] So urce: EHR Chron ic: N Practic e ID: 0001 Bill able Time: 02:15:00 PM Not Available [facility] 0 21:45:53 Twin with problem 941656055 Active 2014 Twin , antepartu m;Recorde d Elsewhere : No Locati on: [facility] So urce: EHR Chron ic: N Practic e ID: 0001 Bill able Time: 02:45:00 PM Not Available [facility] 0 21:45:53 Routine care Active 2014 Supervisi on of other normal ;Recorded Elsewhere : No Locati on: [facility] So urce: EHR Chron ic: N Practic e ID: 0001 Bill able Time: 01:00:00 PM Not Available [facility] 0 21:45:53 Obesity 684793023 Active 2014 Obesity;R ecorded Elsewhere : No Locati on: [facility] So urce: EHR Chron ic: N Practic e ID: 0001 Bill able Time: 01:00:00 PM Not Available [facility] 0 21:45:53 Amenorrhe a 99075852 Active 2014 Absence of menstruat ion;Recor ded Elsewhere : No Locati on: [facility] So urce: EHR Chron ic: N Practic e ID: 0001 Bill able Time: 01:00:00 PM Not Available [facility] 0 21:45:53 Syphilis test finding 745741280 Active 2016 Encntr screen for infection s w sexl mode of transmiss ;Recorded Elsewhere : No Locati on: [facility] So urce: EHR Chron ic: N Practic e ID: 0001 Bill able Time: 02:45:00 PM Not Available [facility] 0 21:45:53 Procedure on genitouri nary system Active 2017 Encounter for surgical aftercare following surgery on the genitouri nary system;Re corded Elsewhere : No Locati on: [facility] So urce: EHR Chron ic: N Practic e ID: 0001 Bill able Time: 03:30:00 PM Not Available [facility] 0 21:45:54 Postopera tive care Active 2017 Encounter for surgical aftercare following surgery on the genitouri nary system;Re corded Elsewhere : No Locati on: [facility] So urce: EHR Chron ic: N Practic e ID: 0001 Bill able Time: 03:30:00 PM Not Available [facility] 0 21:45:54 Normal in multigrav yenifer [id number] 4106 Active 2017 Encounter for suprvsn of normal , second trimester ;Recorded Elsewhere : No Locati on: [facility] So urce: EHR Chron ic: N Practic e ID: 0001 Bill able Time: 11:00:00 AM Not Available [facility] 0 21:45:54 Post-term 67200546 Active 2017 Post-term ;Recorded Elsewhere : No Locati on: [facility] So urce: EHR Chron ic: N Practic e ID: 0001 Bill able Time: 09:30:00 AM Not Available [facility] 0 21:45:54 detection examinati on Active 2016 Encounter for test, result positive; Recorded Elsewhere : No Locati on: [facility] So urce: EHR Chron ic: N Practic e ID: 0001 Bill able Time: 03:00:00 PM Not Available [facility] 0 21:45:54 Single live 595591875 Active 2017 Single live ;Pra ctice ID: 0001 Not Available [facility] 0 21:45:54 screening Active 2017 Encounter for screening for nuchal transluce ncy;Recor ded Elsewhere : No Locati on: [facility] So urce: EHR Chron ic: N Practic e ID: 0001 Bill able Time: 01:30:00 PM Not Available [facility] 0 21:45:54 -induced hypertens ion Active 2017 Gestation al htn w/o significa nt proteinur ia, third trimester ;Recorded Elsewhere : No Locati on: [facility] So urce: EHR Chron ic: N Practic e ID: 0001 Bill able Time: 10:00:00 AM Not Available [facility] 0 21:45:54 Gestation period, 40 weeks 66547309 Active 2017 40 weeks gestation of ;Recorded Elsewhere : No Locati on: [facility] So urce: EHR Chron ic: N Practic e ID: 0001 Bill able Time: 09:30:00 AM Not Available [facility] 0 21:45:54 Specializ ed medical examinati on Active 2014 Routine gynecolog ical examinati on;Katheti ce ID: 0001 Not Available [facility] 0 21:45:55 test positive 884246559 Active 2014 Positive Test;Prac sandy ID: 0001 Not Available [facility] 0 21:45:55 Mild hyperemes is-not delivered Active 2014 Hyperemes is gravidaru m, antepartu m Mild;Prac sandy ID: 0001 Not Available [facility] 0 21:45:55 Nausea and vomiting 22186579 Active 2014 Nausea with vomiting; Practice ID: 0001 Not Available [facility] 0 21:45:[address] Concept Active 2016 Encntr for ob/gyn exam (general) (routine) w/o abn findings; Practice ID: 0001 Not Available [facility] 0 21:45:55 Gestation period, 8 weeks 87872189 Active 2016 8 weeks gestation of ;Practice ID: 0001 Not Available [facility] 0 21:45:55 Secondary amenorrhe a 671121399 Active 2016 Secondary amenorrhe a;Practic e ID: 0001 Not Available [facility] 0 21:45:55 screening for malformat ion Active 2017 Encounter for screening for malformat ions;Prac sandy ID: 0001 Not Available [facility] 0 21:45:56 Vomiting of 65706939 Active 2017 Late vomiting of ;Practice ID: 0001 Not Available [facility] 0 21:45:56 Gestation period, 25 weeks 62504753 Active 2017 25 weeks gestation of ;Practice ID: 0001 Not Available [facility] 0 21:45:56 , childbirt h and puerperiu m finding Active 2017 Oth related condition s, second trimester ;Practice ID: 0001 Not Available [facility] 0 21:45:56 Gestation period, 27 weeks 40322301 Active 2017 27 weeks gestation of ;Practice ID: 0001 Not Available [facility] 0 21:45:56 Non-prote inuric hypertens ion of 388398669 Active 2017 Gestatnl htn without significa nt protein, comp childbirt h;Practic e ID: 0001 Not Available [facility] 0 21:45:58 Uterine scar from previous surgery affecting 15949085 Active 2017 Matern care for low transvers e scar from prev del;Pract ice ID: 0001 Not Available [facility] 0 21:45:58 Steriliza tion procedure Active 2017 Encounter for steriliza tion;Prac sandy ID: 0001 Not Available [facility] 0 21:45:58 Infection screening Active 2016 Encounter for screening for oth infec/par astc diseases; Recorded Elsewhere : No Locati on: [facility] So urce: EHR Chron ic: N Practic e ID: 0001 Bill able Time: 02:45:00 PM Not Available [facility] 0 21:45:59 Finding of menstrual bleeding Active 2016 Menorrhag ia;Record ed Elsewhere : No Locati on: [facility] So urce: EHR Chron ic: N Practic e ID: 0001 Bill able Time: 01:15:00 PM Not Available [facility] 0 21:45:59 Finding of general energy 805395888 Active 2016 Fatigue;R ecorded Elsewhere : No Locati on: [facility] So urce: EHR Chron ic: N Practic e ID: 0001 Bill able Time: 01:15:00 PM Not Available [facility] 0 21:46:00 Screening for malignant neoplasm of cervix Active 2016 Screening for cervical ca;Record ed Elsewhere : No Locati on: [facility] So urce: EHR Chron ic: N Practic e ID: 0001 Bill able Time: 01:15:00 PM Not Available [facility] 0 21:46:01 Body mass index 30+ - obesity 676303727 Active 2016 Body mass index (BMI) 39.0-39.9 , adult;Rec orded Elsewhere : No Locati on: [facility] So urce: EHR Chron ic: N Practic e ID: 0001 Bill able Time: 02:45:00 PM Not Available [facility] 0 21:46:01 Notes:Inflammatory disorders of breast Practice ID: 0001 Problem Notes None recorded. Procedures Surgical History Date Name Laterality Status Provider Name and Address Organization Details Recorded Time 005 loop electrosurgical excision procedure completed MACIEJ Best [address], [place], [address], [facility] 12/11/2023 10:54:20 section completed Carolina Esparza [facility] 12/11/2023 10:39:44 removal of ectopic fetus completed MACIEJ Best [address], [place], [address], [facility] 12/11/2023 10:54:38 left salpingectomy completed MACIEJ Best [address], [place], [address], [facility] 12/11/2023 10:54:52 Imaging Results None recorded. Procedure Notes None recorded. Medical Equipment None Reported. Allergies No known drug allergies Medications Name Sig Start Date Stop Date Status Note LastModified by Organization Details LastModified Time cyclobenz aprine 10 mg tablet take 1 tablet by oral route 2 times every day 01/20 completed Prescrib ed Elsewher e: No Locat ion: [facility] odify By: [email or web address] srivastavaunter DateTime : 08/27/19 18 04:30:28 PM Not Available Not Available Not Available dicloxaci llin 500 mg capsule take 1 capsule by oral route every 6 hours 1 hour before a meal or 2 hours after a meal 05/30 completed Prescrib ed Elsewher e: No Locat ion: [facility] odify By: [email or web address] z Encoun ter DateTime : 07/29/19 16 02:15:00 PM Not Available Not Available Not Available azithromy logan 250 mg tablet take 2 tablet by oral route every day for 1 day then 1 tablet (250 mg) by oral route once daily for 4 days 10/14 completed Prescrib ed Elsewher e: No Locat ion: [facility]ify By: [email or web address] Encounte r DateTime : 10/11/19 18 09:30:00 AM Not Available Not Available Not Available folic acid 20 mg capsule 07/28 completed Prescrib ed Elsewher e: Yes Loca tion: [facility] odify By: [email or web address] srivastavauntmelanie DateTime : 09/23/19 15 01:00:00 PM Not Available Not Available Not Available progester one 50 mg/mL intramusc ular oil inject 0.1 millilit er by intramus cular route every day 07/28 completed Prescrib ed Elsewher e: Yes Loca tion: [facility] odify By: masha [address] ncounter DateTime : 09/23/19 15 01:00:00 PM Not Available Not Available Not Available promethaz ine 25 mg tablet take 1 tablet by oral route every 4 - 6 hours as needed 05/30 completed Prescrib ed Elsewher e: No Locat ion: [facility] odify By: brittany Hinton ter DateTime : 10/02/19 15 10:30:00 AM Not Available Not Available Not Available Vitamin D2 1,250 mcg (50,000 unit) capsule take 1 capsule by oral route every week 07/28 completed Prescrib ed Elsewher e: No Locat ion: [facility] odify By: masha Falk ncounter DateTime : 11/24/19 15 01:27:49 PM Not Available Not Available Not Available metoclopr amide 10 mg tablet take 1 tablet by oral route 4 times every day 30 minutes before meals and at bedtime 01/20 completed Prescrib ed Elsewher e: No Locat ion: [facility] odify By: masha Falk ncounter DateTime : 06/06/19 18 10:45:00 AM Not Available Not Available Not Available Diclegis 10 mg-10 mg tablet,de layed release take 1 tablet by oral route every day in the morning, 1 tablet in the mid-afte rnoon, and 2 tablets at bedtime 07/28 completed Prescrib ed Elsewher e: No Locat ion: [facility] odify By: masha Falk ncounter DateTime : 10/02/19 15 10:30:00 AM Not Available Not Available Not Available One Daily 27 mg iron-800 mcg tablet take 1 tablet by oral route every day 05/30 completed Prescrib ed Elsewher e: Yes Loca tion: [facility] odify By: brittany z Encoun ter DateTime : 09/23/19 15 01:00:00 PM Not Available Not Available Not Available 28 mg-800 mcg tablet 12/10 completed Prescrib ed Dustinher e: Yes Loca tion: [facility] odvelia By: masha thomas DateTime : 01/21/20 18 01:00:00 PM Not Available Not Available Not Available Vitals Date Recorded Body weight Body mass index (BMI) Body height Systolic blood pressure Diastolic blood pressure Provider Name and Address Organization Details Last Updated DateTime 12/11/2023 18241.07 g 33.4 kg/m2 165.1 cm 124 mm[Hg] 78 mm[Hg] Savanah Esparza [facility] 10:34:56 Social History Question Answer Notes LastModified by Organizat ion Details LastModified Time Tobacco Smoking Status Never Smoker Savanah Esparza [facility], [facility] 12/11/2023 10:39:07 What Is Your Level Of Alcohol Consumption? None [facility] Information not available 12/11/2023 In The [...] To Be High Risk For COVID-19? No [facility] not available 12/11/2023 Sex: Unknown [...] Diagnosis/Indication Diagnosis SNOMED-CT Code Diagnosis ICD10 Code Diagnosis Note [id number] MACIEJ Best [place] [address] [address] 12/11/2023 10:17:24 12/11/2023 11:08:31 Gynecologic examination 39200772 Z01.419 Z11.51 WWEpap updatedgc/ ct/trich testing added to papHIV/Hep B&C/Syphil is testing ordered It is strongly advised to have an annual flu shot which she can obtain at most pharmacies . If you have not had a TDap shot in the last 10 years you should obtain one as well. Discussed with patient & provided with informatio n regarding the HPV vaccine if applicable . Encourage safe sexual practices. Do monthly self breast exams. BRCA testing is now available for patients with strong genetic history of female cancer. If interested contact the office. Engage in regular exercise. Avoid tobacco and illicit drugs. This lifestyle behavior pattern will lead to less health conditions and longer life span. If BMI greater than 25 dietary consult advised. Patient received above instructio ns, and questions have been answered. Venereal d isease screening 005427270 Z11.3 Sexually t ransmitted infectious disease 2776123 A64 Health Concerns Section Related Observation LastModified by Organization Detai ls LastModified Time None Recorded Concern Status LastModified by Organization Details LastModified Time None Recorded Advance Directives Directive None Recorded Payers Encounter Date Sequence Insurance Name Policy Number Policy Helton Covered Member ID Helton Member ID Guarantor Name 12/11/2023 1 [facility] [id number] iMchael Ortiz [id number] Oanh Ortiz Notes Date Note Type [...] per pt MACIEJ Best [address], [place], [address], [facility] 12/11/2023 11:05:55 OBGyn Episode Ob Episode Information Episode Created Date Number of Fetuses Patient Bloodtype Patient rh Status Prepregnancy Weight lbs Domestic Partner Domestic Partner Phone Father Name Mechanical Assembly Status 12/11/19 24 1 CLOSED Fetus Data First Name Last Name Admitted to NICU Weight (g) Sex Living Outcome Pediatric Complications Fetus ID Race Codes Race Delivery Type M Full Term [id number] Vaginal Delivery Juan Calculation Initial Juan Date Initial Exam Date Initial Exam Provider Initial Ultrasound Date Last Menstrual Period Date Ultra Sound Weeks Gestation 0 Eighteen To Twenty Week Juan Update Ultra Sound Date Fundal Height At Umbil Quickening Date Ultra Sound Latest Weeks Gestation Final Juan Confirmed By Final Juan Confirmed Date Final Juan Date Ultra Sound Latest Days Gestation 0 [...] Domestic Partner Domestic Partner Phone Father Name Mechanical Assembly Status 12/11/19 24 1 CLOSED Fetus Data First Name Last Name Admitted to NICU Weight (g) Sex Living Outcome Pediatric Complications Fetus ID Race Codes Race Delivery Type 88604 Juan Calculation Initial Juan Date Initial Exam Date Initial Exam Provider Initial Ultrasound Date Last Menstrual Period Date Ultra Sound Weeks Gestation 0 Eighteen To Twenty Week Juan Update Ultra Sound Date Fundal Height At Umbil Quickening Date Ultra Sound Latest Weeks Gestation Final Juan Confirmed By Final Juan Confirmed Date Final Juan Date Ultra Sound Latest Days Gestation 0 [...] Domestic Partner Domestic Partner Phone Father Name Mechanical Assembly Status 12/11/19 24 1 DELETED Juan Calculation Initial Juan Date Initial Exam Date Initial Exam Provider Initial Ultrasound Date Last Menstrual Period Date Ultra Sound Weeks Gestation 0 Eighteen To Twenty Week Juan Update Ultra Sound Date Fundal Height At Umbil Quickening Date Ultra Sound Latest Weeks Gestation Final Juan Confirmed By Final Juan Confirmed Date Final Juan Date Ultra Sound Latest Days Gestation 0 [...] Domestic Partner Domestic Partner Phone Father Name Mechanical Assembly Status 12/11/19 24 2 CLOSED Fetus Data First Name Last Name Admitted to NICU Weight (g) Sex Living Outcome Pediatric Complications Fetus ID Race Codes Race Delivery Type [id number] F Full Term [id number] Primary Juan Calculation Initial Juan Date Initial Exam Date Initial Exam Provider Initial Ultrasound Date Last Menstrual Period Date Ultra Sound Weeks Gestation 0 Eighteen To Twenty Week Juan Update Ultra Sound Date Fundal Height At Umbil Quickening Date Ultra Sound Latest Weeks Gestation Final Juan Confirmed By Final Juan Confirmed Date Final Juan Date Ultra Sound Latest Days Gestation 0 [...] Domestic Partner Domestic Partner Phone Father Name Mechanical Assembly Status 12/11/19 24 1 CLOSED Fetus Data First Name Last Name Admitted to NICU Weight (g) Sex Living Outcome Pediatric Complications Fetus ID Race Codes Race Delivery Type F Full Term [id number] Repeat Juan Calculation Initial Juan Date Initial Exam Date Initial Exam Provider Initial Ultrasound Date Last Menstrual Period Date Ultra Sound Weeks Gestation 0 Eighteen To Twenty Week Juan Update Ultra Sound Date Fundal Height At Umbil Quickening Date Ultra Sound Latest Weeks Gestation Final Juan Confirmed By Final Juan Confirmed Date Final Juan Date Ultra Sound Latest Days Gestation 0 [...]
--- OUTSIDE RECORDS SUMMARY | 2024-07-23 01:24 | XMS_ITS | Clinical Summary ---
Author Organization 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 Active buspirone HCl (BUSPIRONE ORAL) Take by mouth. [...] = 0.6 oz pur e alcohol) Comments Unknown Sex and Gender Information Value Date Recorded Sex Assigned at Not on file Legal Sex Female 6:12 AM [employer]ONDANT [employer]OOKER Gender Identity Not on file Sexual Orientation Not on file Occupation Industry Job Start Date Job End Date Not on file Not on file Not on file Not on file Not on file Not on file Not on file Not on file Last Filed Vital Signs Vital Sign Reading Time Taken Comments Blood Pressure 124/72 01/25/2020 8:10 AM CDT Pulse 72 08/21/2012 7:46 AM CDT Temperature 36.9 C (98.5 F) 08/21/2012 7:46 AM CDT Respiratory Rate 16 08/21/2012 7:46 AM CDT [...] of 3 - 19+ 3-dose series) 2005 PAP SMEAR 10/01/2015 09/30/2012 PAP SMEAR 2016 09/30/2012 CERVICAL CANCER SCREENING 09/30/2017 HPV/Cotest 09/30/2017 09/30/2012 INFLUENZA VACCINE (#1) 2023 DTAP/TDAP/TD VACCINES (2 - T d or Tdap) 12/28/2024 12/28/2014 HPV VACCINES Aged Out No longer eligi ble based on patient's age to complete this topic PNEUMOCOCCAL VACCINE 0-49 YEARS Aged Out No longer eligible based on patient's age to complete this topic Procedures Procedure Name Priority Date/Time Associated Diagnosis Comments CERV/VAG CYTOPATH, THIN PREP SKID WORKER AND HPV Routine 09/30/2012 2:50 PM CDT from Last 3 Months or Most Recently Relevant to Health Maintenance Results * CERV/VAG CYTOPATH, THIN PREP SKID WORKER AND HPV (09/30/2012 2:50 PM CDT) CLINICAL INFORMATION [employer] Comment:Information not prov ided LAST MENSTRUAL PERIOD [employer] Comment:INFORMATION NOT PROV IDED PREV PAP: [employer] Comment:INFORMATION NOT PROV IDED PREV BX: [facility] Comment:INFORMATION NOT PROV IDED SOURCE [employer] Comment:[employer] ADEQUACY: [facility] Comment:SATISFACTORY FOR LATANYA LUATION INTERPRETATION [facility] Comment: Negative for intraepithelial lesion or malignancy. Atrophic pattern; predominantly parabasal cells COMMENT [facility] Comment: This Pap test has been evaluated with computer assisted technology. BARREL RAISER: [employer] [employer] [facility] Comment: MAF, CT(ASCP) Test Performed at: [facility] [address] [place] [address] ENMANUEL BRIONES DO, MPH HPV HIGH RISK DNA DETECTION NOT DETECTED NOT DETECTED [facility] Comment: Tested for high risk types 16,18,31,33,35,39,45,51,52, 56,58,59,68. The analytical performance characteristics of this assay, when used to test SurePath or vaginal specimens, have been determined by [employer]. Methodology: Hybrid Capture with Signal Amplification. 09/30/2012 2:50 PM CDT Elena Mcneil MD PATHOLOGY/CYTOLOGY ORDERABLES F inal Result INTERFACE SYSTEM Refer to clinic/hospital department [facility] [address] [place] [address] from Last 3 Months or Most Recently Relevant to Health Maintenance Advance Directives For more information, please contact: [phone] * Full Code (Latest Code Status on [...]
--- OUTSIDE RECORDS SUMMARY | 2024-07-23 01:24 | XMS_ITS | Clinical Summary ---
Author Organization [facility] Address [facility] [place] [address] Care Team Providers Care Assistant Professor Of Criminal Justice Name Role Phone Unavailable Primary Care Provider [...] 02/12/2012 10:36 AM CDT Plan of Treatment Upcoming Encounters Date Type Department Care Team (Late st Contact Info) Description 09/03/2024 8:00 AM CDT Office Visit [facility] Family [facility] - [address], [address] [place] [address] [phone] Nel Velasquez MD [address] [place] [address] [address] [place] [address] Health Maintenance Due Date Last Done Comments [...] patient's age to complete this topic Meningococcal B Vaccine Aged Out No l onger eligible based on patient's age to complete [...] on patient's age to complete this topic Insurance [employer]
[2024-07-23 12:45] VITALS: BP 141/99; PULSE 81; RESP 81; TEMP 36.3; O2SAT 100; BMI 31.3
[2024-07-23 12:49] LABS: BEDSIDEPREGUCG Negative (Negative)
[2024-07-23] MEDS: LACTATED RINGERS 1,000 ML 150 ML IV CONT (12:54)
--- NOTE | 2024-07-23 13:36 | PM.HPGS ---
History of Present Illness History of Present Illness Consent: Risks, benefits, and alternatives have been discussed and questions answered. Patient agrees to proceed with procedure. Chief complaint: Hemorrhage of Anus and Rectum Narrative: Oanh Ortiz is a 39 year old female here for first colonoscopy, had constipation Review of Systems Review of Systems: All systems reviewed & are unremarkable except as noted in HPI and below PMFSH Past Medical History Medical History (Updated 06/03/24 @ 13:29 by MADINA Rich) Diarrhea Chronic constipation Rectal bleeding Family History Family History (Updated 06/03/24 @ 12:48 by Omar Kearns MA) Father Hypertension Family history of diabetes mellitus in first degree relative Grandparent Breast cancer Social History Social History (Updated 06/03/24 @ 12:48 by Omar Kearns MA) Years smoked: 12 Smoking status: Former smoker Tobacco type: cigarettes Smoking end date: 04/29/07 Alcohol intake: current Drinks per week: 2 Alcohol use details: Socially Substance use: current Substance use type: marijuana Last use: 07/14/2024 Living arrangements: with family Spiritual care concerns: No Meds Home Medications and Allergies Home Medications ?Medication ?Instructions ?Recorded ?Confirmed ?Type dicyclomine 10 mg capsule 10 mg PO TID PRN abdominal pain 06/03/24 07/14/24 Rx #30 caps Allergies Allergy/AdvReac Type Severity Reaction Status Date / Time Cat Dander Allergy Mild Anaphylaxis Uncoded 07/23/24 12:43 Vital Signs Vital Signs - 24 hr 07/23/24 12:45 Temperature 97.4 F L Pulse Rate 81 Respiratory Rate 81 H Blood Pressure 141/99 H Pulse Oximetry 100 Oxygen Delivery Room Air Exam Const: General: comfortable and no acute distress HENMT: Face/Nose/Sinus: Normal nares present Eyes: General: appearance normal, both eyes and all related structures Neck: Neck: no JVD Resp: Auscultation: clear to auscultation bilaterally Cardio: Rate: regular rate Rhythm: regular rhythm GI: Inspection: non-distended GI Palp: Yes Soft to palpation Skin: General skin exam: normal color Neuro: General: gait normal Speech: normal speech Extrem: General: normal to inspection Psych: Mental Status: mental status grossly normal Assessment and Plan Assessment and plan (1) Chronic constipation: Code(s): K59.09 - Other constipation Status: Acute Assessment and Plan: colonoscopy
[2024-07-23 13:53] VITALS: BP 125/78; PULSE 73; RESP 26; O2SAT 100
[2024-07-23 14:03] VITALS: BP 118/71; PULSE 68; RESP 24; O2SAT 100
[2024-07-23 14:13] VITALS: BP 138/88; PULSE 71; RESP 24; O2SAT 100
== END 2024-07-23 14:24 | disposition home or self-care (01) ==
PROVIDERS: Anesthesiology; PCP Family Medicine; Referring Provider Nurse Practitioner Family; Visit Provider Internal Medicine Gastroenterology
PROC: 0DJD8ZZ Inspection of Lower Intestinal Tract, Via Natural or Artificial Opening Endoscopic (ICD-10-PCS; CPT 45378; principal; 2024-07-23 14:30)
DX: K64.8 Other hemorrhoids (principal); K59.09 Other constipation; F12.90 Cannabis use, unspecified, uncomplicated; Z87.891 Personal history of nicotine dependence; Z80.3 Family history of malignant neoplasm of breast
CPT/HCPCS: 45378; J2704; J7120

== ENCOUNTER 2024-11-16 13:00 | Outpatient (RCR) | payer OTHER, SELFPAY ==
--- NOTE | 2024-09-07 16:16 | OPREHPOC ---
Outpatient Therapy Plan of Care This is a Multidisciplinary Plan of Care that may contain components documented by all disciplines (PT, OT, and ST.) PT Problem 1 PT Problem #1 Knowledge Deficit PT Goal 1 Goal / Goal Update 1. Patient will perform independent HEP Target Visit 3 PT Problem 2 PT Problem #2 Pain PT Goal 1 Goal / Goal Update 1. Patient will report pain no higher than 4/10 with typical activities including BM 2. Patient will demonstrate normal pelvic floor muscle tone and will adequately relax after contraction Target Visit 6 PT Problem 3 PT Problem #3 Impaired Functional ADLs PT Goal 1 Goal / Goal Update 1. Patient will have BM at least 6 days of the week 2. Patient will report no need to strain or sit more than 5 minutes for BM Target Visit 6
--- NOTE | 2024-09-07 16:16 | PTOPEVAL1 ---
Assessment and note entered by Tressa Jo DPT Evaluation Information Assessment Status Evaluation Diagnosis k59.09, k62.89, m62.89 ICD-10 Condition Codes (PT) Weakness R53.1,Pelvic and perineal pain R10.2 Subjective Information Pt has a diagnosis of constipation, started worsening in March 2024 but unsure why. Voids 6 times a day and 0 at night. Denies urinary incontinence. Can hold urge to void as long as needed. Denies pain with urination. BM 5 days out of 7 recently but previously had been doing 1-2 weeks in between BM. Is taking fiber gummies and miralax which are helping with regularity. Highest pain 10/10 and lowest 8/10, always has pain even if she has regular BM. Denies fecal incontinence. Pt has to strain with a BM, will sit up to 10 minutes and has to change position a lot. Denies pelvic pain. Pt has been 4 times, delivered 3 times (one with twins). First delivery vaginal, other deliveries with C-sections. Surgery for ectopic . No b/b surgeries. Has been diagnosed with PCOS and maybe endo. No b/ b diagnoses. Pt reports her pain worsens with sitting which is difficult to be in the car to clam picker her kids and do other tasks. Reports her constipation causes difficulty being active in general. Diet: iced coffee and muffin/bagel for breakfast, lunch meat/cheese, dinner typically fast food or take out. Drinks 2-3 cans of soda a day, 2-3 cups of water and will chew on ice. Fiber gummies have 4 grams per gummy, will eat 1-3 a day. Patient goal: stop the pain, manage the pain better Returns to MD in 4 week. Reported Pain Level Pain Score 8: Self Report Assessment PT Clinical Summary The patient is presenting to skilled therapy with a several month history of constipation and pelvic pain. She presents with decreased hip and core strength as well as increased pelvic floor muscle tone/difficulty relaxing after contraction. These impairments are contributing to her constipation, pain, and difficulty performing normal activities. She will benefit from therapy to reduce pain and restore full function. Plan of Care Interventions Electrical Stimulation,Hot Pack/Cold Pack,Manual Therapy,Neuro Re-education,Patient/Caregiver Education,Therapeutic Activities,Therapeutic Exercise PT Services Indicated Yes Treatment Frequency and 1 time a week for 6 visits Duration These treatments will address the objective and functional deficits as defined above. The patient will be advanced safely and appropriately in order for the patient to progress towards his/her prior level of function. Additional exercises will be introduced and as well as a comprehensive home exercise program upon discharge, if needed, ?to ensure carryover of functional gains achieved in the clinic. This treatment plan has been reviewed and agreement upon by the patient.
--- NOTE | 2024-09-28 13:17 | PCPTNOTE ---
Patient called to cancel appointment 09/28/24 due to car trouble. Rescheduled to later in the week.
--- NOTE | 2024-10-12 14:44 | OPREHPOC ---
Outpatient Therapy Plan of Care This is a Multidisciplinary Plan of Care that may contain components documented by all disciplines (PT, OT, and ST.) PT Problem 1 PT Problem #1 Knowledge Deficit PT Goal 1 Goal / Goal Update 1. Patient will perform independent HEP Target Visit 3 Progress Met PT Problem 2 PT Problem #2 Pain PT Goal 1 Goal / Goal Update 1. Patient will report pain no higher than 4/10 with typical activities including BM 2. Patient will demonstrate normal pelvic floor muscle tone and will adequately relax after contraction update 10/12/24 1. improved to 8/10 2. improved to mild Target Visit 6 Progress Partially Met PT Problem 3 PT Problem #3 Impaired Functional ADLs PT Goal 1 Goal / Goal Update 1. Patient will have BM at least 6 days of the week 2. Patient will report no need to strain or sit more than 5 minutes for BM update 10/12/24 1. met 2. not met Target Visit 6 Progress Met
--- NOTE | 2024-10-12 14:44 | PTOPPROG ---
Assessment and note entered by Tressa Jo DPT Evaluation Information Assessment Status Progress Diagnosis k59.09, k62.89, m62.89 ICD-10 Condition Codes (PT) Weakness R53.1,Pelvic and perineal pain R10.2 Subjective Information Highest pain recently 7-8/10 and lowest 2-3/10. BM daily in the last week, still using the fiber gummies and miralax once or twice. Still having to sit for awhile in order to have a BM. Assessment PT Clinical Summary The patient has made good progress in therapy and reports overall decreased pain and improvements with frequency of BM. She demonstrates improved hip strength and pelvic floor muscle tone but continues to have pain with palpation. She will benefit from further skilled therapy to eliminate pain and return to full function. Plan of Care Interventions Electrical Stimulation,Hot Pack/Cold Pack,Manual Therapy,Neuro Re-education,Patient/Caregiver Education,Therapeutic Activities,Therapeutic Exercise PT Services Indicated Yes Treatment Frequency and 1 time a week for 6 visits Duration These treatments will address the objective and functional deficits as defined above. The patient will be advanced safely and appropriately in order for the patient to progress towards his/her prior level of function. Additional exercises will be introduced and as well as a comprehensive home exercise program upon discharge, if needed, ?to ensure carryover of functional gains achieved in the clinic. This treatment plan has been reviewed and agreement upon by the patient.
--- NOTE | 2024-12-01 10:44 | PCPTNOTE ---
Patient did not show up for appointment 12/01/24. Left voicemail to offer patient to reschedule.
== END 2024-12-06 23:59 | disposition home or self-care (01) ==
LOC: ANHGOSHPT 13:00
PROVIDERS: PCP Family Medicine; Visit Provider Nurse Practitioner Family
DX: K59.09 Other constipation (principal); K62.89 Other specified diseases of anus and rectum; M62.89 Other specified disorders of muscle
CPT/HCPCS: 97110; 97112; 97140; 97162; 97530

== ENCOUNTER 2025-01-28 10:30 | Outpatient (RCR) | payer OTHER, SELFPAY ==
--- NOTE | 2024-12-31 09:44 | OPREHPOC ---
Outpatient Therapy Plan of Care This is a Multidisciplinary Plan of Care that may contain components documented by all disciplines (PT, OT, and ST.) PT Problem 1 PT Problem #1 Knowledge Deficit PT Goal 1 Goal / Goal Update 1. Patient will perform independent HEP Target Visit 3 Progress Met PT Problem 2 PT Problem #2 Pain PT Goal 1 Goal / Goal Update 1. Patient will report pain no higher than 4/10 with typical activities including BM 2. Patient will demonstrate normal pelvic floor muscle tone and will adequately relax after contraction update 10/12/24 1. improved to 8/10 2. improved to mild update 12/31/24 1. improved to 6/10 2. increased tone but able to relax after contraction Target Visit 13 Progress Partially Met PT Problem 3 PT Problem #3 Impaired Functional ADLs PT Goal 1 Goal / Goal Update 1. Patient will have BM at least 6 days of the week 2. Patient will report no need to strain or sit more than 5 minutes for BM update 10/12/24 1. met 2. not met update 12/31/24 2. 10 minutes at the most Target Visit 13 Progress Met
--- NOTE | 2024-12-31 09:45 | PTOPPROG ---
Assessment and note entered by Tressa Jo DPT Evaluation Information Assessment Status Progress Diagnosis k59.09, k62.89, m62.89 ICD-10 Condition Codes (PT) Weakness R53.1,Pelvic and perineal pain R10.2 Subjective Information Pt reports feeling a huge difference from where she started and knows how to better manage her pain on her bad days. Highest pain 6/10 and lowest 2/10. Pain is also not getting as high as often. BM daily in the last week, has not had to use fiber gummies and miralax. No real functional limitations at this point and has felt confident taking a subbing position which she does not think she would have done before. Sitting less than 10 minutes for BM. Assessment PT Clinical Summary The patient has made excellent progress overall in therapy and reports decreased intensity and frequency of her pain. She demonstrates improved abdominal strength and improved pelvic floor muscle tone as well. Due to her progress but continued pain, plan to follow up with therapy in approximately 1 month for patient to continue HEP independently and address any further needs at that time. Plan of Care Interventions Electrical Stimulation,Hot Pack/Cold Pack,Manual Therapy,Neuro Re-education,Patient/Caregiver Education,Therapeutic Activities,Therapeutic Exercise PT Services Indicated Yes Treatment Frequency and 1 visit in 4 weeks Duration These treatments will address the objective and functional deficits as defined above. The patient will be advanced safely and appropriately in order for the patient to progress towards his/her prior level of function. Additional exercises will be introduced and as well as a comprehensive home exercise program upon discharge, if needed, ?to ensure carryover of functional gains achieved in the clinic. This treatment plan has been reviewed and agreement upon by the patient.
--- NOTE | 2025-01-28 11:19 | OPREHPOC ---
Outpatient Therapy Plan of Care This is a Multidisciplinary Plan of Care that may contain components documented by all disciplines (PT, OT, and ST.) PT Problem 1 PT Problem #1 Knowledge Deficit PT Goal 1 Goal / Goal Update 1. Patient will perform independent HEP Target Visit 3 Progress Met PT Problem 2 PT Problem #2 Pain PT Goal 1 Goal / Goal Update 1. Patient will report pain no higher than 4/10 with typical activities including BM 2. Patient will demonstrate normal pelvic floor muscle tone and will adequately relax after contraction update 10/12/24 1. improved to 8/10 2. improved to mild update 12/31/24 1. improved to 10 2. increased tone but able to relax after contraction update 01/28/25 1. 5/10 2. same Target Visit 14 Progress Partially Met PT Problem 3 PT Problem #3 Impaired Functional ADLs PT Goal 1 Goal / Goal Update 1. Patient will have BM at least 6 days of the week 2. Patient will report no need to strain or sit more than 5 minutes for BM update 10/12/24 1. met 2. not met update 12/31/24 2. 10 minutes at the most update 01/28/25 2. not reassessed Target Visit 13 Progress Met
--- NOTE | 2025-01-28 11:19 | PTOPPROG ---
Assessment and note entered by Tressa Jo DPT Evaluation Information Assessment Status Progress Diagnosis k59.09, k62.89, m62.89 ICD-10 Condition Codes (PT) Weakness R53.1,Pelvic and perineal pain R10.2 Subjective Information Current pain 09/05. Reports her cycle just ended so her pain has been worse. Does continue to feel that she can moderate her pain by doing her HEP but is not always sure if she is using pelvic wand correctly and has gotten some soreness after it. Assessment PT Clinical Summary The patient has continued to make progress and reports overall decreased pain. She does continue to display some increased pelvic floor muscle tone and pain with palpation. Due to these findings and patient's questions regarding pelvic wand use, plan to see patient 1 more visit in approximately 4-6 weeks and consider discharge at that time. Plan of Care Interventions Electrical Stimulation,Hot Pack/Cold Pack,Manual Therapy,Neuro Re-education,Patient/Caregiver Education,Therapeutic Activities,Therapeutic Exercise PT Services Indicated Yes Treatment Frequency and 1 visit in 6 weeks Duration These treatments will address the objective and functional deficits as defined above. The patient will be advanced safely and appropriately in order for the patient to progress towards his/her prior level of function. Additional exercises will be introduced and as well as a comprehensive home exercise program upon discharge, if needed, ?to ensure carryover of functional gains achieved in the clinic. This treatment plan has been reviewed and agreement upon by the patient.
== END 2025-03-15 23:59 | disposition home or self-care (01) ==
LOC: ANHGOSHPT 10:30
PROVIDERS: PCP Family Medicine; Visit Provider Nurse Practitioner Family
DX: K59.09 Other constipation (principal); K62.89 Other specified diseases of anus and rectum; M62.89 Other specified disorders of muscle
CPT/HCPCS: 97110; 97140; 97530